=== PATIENT | female | born 1945 | race Caucasian/White ===

== ENCOUNTER → 2017-09-10 09:10 | Outpatient (CLI) | payer MEDICARE, OTHER, SELFPAY ==
[2017-09-10 09:29] LABS: Add Manual Diff / Slide Review NO; Basophils Percent Auto 0.9 % (0-2); Eosinophils Percent Auto 4.1 % (2-4); Hematocrit 37.4 % (36-46); Hemoglobin 12.7 g/dL (12.0-16.0); Lymphocytes Percent Auto 36.3 % (25-40); Mean Corpuscular Hemoglobin 28.9 PG (26-34); Mean Corpuscular Volume 85.2 fL (80-100); Monocytes Percent Auto 7.4 % (3-14); Neutrophils Absolute Auto 2600 /uL (3000-5900); Neutrophils Percent Auto 51.3 % (50-75); Platelet Count 237 X10^3/uL (150-400); Red Blood Cell Count 4.39 X10^6/uL (4.0-5.2); Red Cell Distribution Width 13.6 % (11.6-14.8); White Blood Cell Count 5.1 X10^3/uL (4.5-11.0)
[2017-09-10 09:46] LABS: Cholesterol 220 mg/dL (140-199); HDL Cholesterol 60 mg/dL (40-60); LDL Cholesterol Calculated 135 mg/dL (<100); Triglycerides 127 mg/dL (35-150)
[2017-09-10 10:12] LABS: Vitamin D 25 Hydroxy (D3) 45.2 ng/mL (30.0-100.0)
[2017-09-10 10:22] LABS: Ferritin 18.7 ng/mL (11.1-264)
[2017-09-10 10:25] LABS: TSH w/ Reflex to FT4 < 0.02 uIU/mL (0.47-4.68)
[2017-09-10 10:36] LABS: Vitamin B12 > 1000 pg/mL (239-931)
== END ==
PROVIDERS: Family Provider Family Medicine; PCP Family Medicine; Visit Provider Family Medicine
DX: E78.2 Mixed hyperlipidemia (principal); E55.9 Vitamin D deficiency, unspecified; D51.9 Vitamin B12 deficiency anemia, unspecified; E03.9 Hypothyroidism, unspecified
CPT/HCPCS: 36415; 80061; 82306; 82607; 82728; 84439; 84443; 85025

== ENCOUNTER → 2017-10-19 15:14 | Outpatient (CLI) | payer MEDICARE, OTHER, SELFPAY ==
[2017-10-19 17:48] LABS: Blood Urea Nitrogen 6 mg/dL (7-17); Carbon Dioxide 30 mmol/L (22-32); Chloride 100 mmol/L (98-107); Estimated Glomerular Filt Rate > 60.0 mL/min (>60); Glucose 87 mg/dL (80-110); HEMOLYSIS < 15 (0-50); Potassium 3.9 mmol/L (3.4-5.1); Sodium 140 mmol/L (137-145)
== END ==
PROVIDERS: Family Provider Family Medicine; PCP Family Medicine; Visit Provider Family Medicine
DX: E03.9 Hypothyroidism, unspecified (principal)
CPT/HCPCS: 36415; 80048

== ENCOUNTER 2018-11-15 15:15 | Outpatient (RCR) | payer MEDICARE, OTHER, SELFPAY ==
--- NOTE | 2017-08-18 21:06 | PT.OIE ---
Current Diagnoses Dorsalgia, unspecified (08/17/17) Past Medical History (Last Reviewed 07/11/17 @ 13:48 by Sonal Sanchez LPN) Hyperlipidemia (Chronic) Gastroesophageal reflux disease (Chronic 11/26/10) Acquired hypothyroidism (Chronic 07/30/12) Osteopenia (Chronic 07/22/13) Past Surgical History (Last Reviewed 07/11/17 @ 13:48 by Sonal Sanchez LPN) History of bilateral salpingo-oophorectomy (BSO) Status post bunionectomy Status post bunionectomy Status post tonsillectomy and adenoidectomy Provider Visit Care Team Role Provider Type Lan Gomes MD Attending Provider Physician Family Provider Primary Care Provider Specialty: Family Practice Address: [address] [place] [address] Email: [email or web address] Physical Therapy Initial Evaluation PT-OP-A Visit Information Start: 08/18/17 20:48 Freq: Status: Active Protocol: Document 08/17/17 13:00 [facility] (Rec: 08/18/17 21:05 [facility] [email or web address]) Out-Patient Physical Therapy Visit Information Visit Information Visit Type Initial Evaluation Visit Start Time 13:00 Visit Stop Time 13:45 Total Visit Minutes 45 Visit Number 1 Number of WORK ORDER CLERK Visits 0 Evaluation Information Evaluation Date 08/17/17 PT-OP-B Current Condition Start: 08/18/17 20:48 Freq: Status: Active Protocol: Document 08/17/17 13:00 [facility] (Rec: 08/18/17 21:05 [facility] [email or web address]) Current Condition History of Current Condition Onset Date recent onset of sacral/LBP 3 weeks ago Current Complaints alternating left and right sided sacral pain History of Current Condition nasra 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 She was doing well with her home stabilization program and aquatic exercise but recently flared her sacrum and SI joint after doing a abdominal exercise. She has been complaining of SI joint pain since Prior Functional Status Baseline Function- ADL's Independent Baseline Function- Mobility Independent Current Functional Impairments (Reported) Functional Limitations- ADL's limited with activities that require bending and lifting Functional Limitations- Mobility/Gait pain with walking greater than 1 mile PT-OP-C Subjective Start: 08/18/17 20:48 Freq: Status: Active Protocol: Document 08/17/17 13:00 [facility] (Rec: 08/18/17 21:05 [facility] [email or web address]) OP-PT Pain Assessment Pain Assessment Grid Paper Pain Assessment Grid Completed Yes Location Right Pain Location Details right SI joint and at times left SI joint Intensity 5 Scale Used Numeric (1 - 10) Description Aching Chronic Radiating Tender Throbbing Pain Aggravating Factors Walking Stair Climbing Bending Lifting PT-OP-F Manual Assessment Start: 08/18/17 20:48 Freq: Status: Active Protocol: Document 08/17/17 13:00 [facility] (Rec: 08/18/17 21:05 [facility] [email or web address]) Manual Assessments Soft Tissue Assessment Soft Tissue Mobility Assessment tightness in the piriformis muscle left greater than right Joint Mobility Assessment Joint Mobility Assessment + ASLR test for right SI instability and sacrum is rotated to the right PT-OP-J Posture/Palpation/Skin Start: 08/18/17 20:48 Freq: Status: Active Protocol: Document 08/17/17 13:00 [facility] (Rec: 08/18/17 21:05 [facility] [email or web address]) Palpation Assessment Location One Palpation Location PSIS and sacral NELY. saral base Palpation Findings Soft Tissue Tightness Muscle Guarding Tenderness Palpation Details tenderness on either side of the sacrum with muscle guarding, tenderness to palpation at the sacral base and PSIS bilaterally PT-OP-K Range of Motion Start: 08/18/17 20:48 Freq: Status: Active Protocol: Document 08/17/17 13:00 [facility] (Rec: 08/18/17 21:05 [facility] [email or web address]) Lumbar Spine Range of Motion Lumbar Spine Active Testing Position standing Flexion 80 Lateral Flexion Left 60 Lateral Flexion Right 50 ROM Limitations Soft Tissue Tightness PT-OP-Q Treatments Start: 08/18/17 20:48 Freq: Status: Active Protocol: Document 08/17/17 13:00 [facility] (Rec: 08/18/17 21:05 [facility] [email or web address]) Therapeutic Exercises Supine Exercises 1 Supine Exercise Name piriformis stretch Manual Therapy Treatment Soft Tissue Mobilization 1 Body Location piriformis release on the left Mobilization Type Myofascial Release Joint Mobilizations 1 Joint sacral mobilizations into counter nutation Grade II Body Position Prone PT-OP-T Assessment and Plan Start: 08/18/17 20:48 Freq: Status: Active Protocol: Document 08/17/17 13:00 [facility] (Rec: 08/18/17 21:05 [facility] [email or web address]) Physical Therapy Assessment Rehab Potential Rehabilitation Potential Excellent Evaluation Complexity Number of Personal Factors/Comorbidities 0 Number of Body Systems Impaired 1-2 Clinical Presentation at Evaluation Stable Impairments Impairments Activity Tolerance Pain ROM Soft Tissue Mobility Tone Goals Four Impairment decreased core stabilization Bobbin Disker Goal (LTG) Nasra Neff's core program for home is reviewed and she is properly performing her core stabilization exercises LTG Duration 8 weeks Three Impairment decreased lumbar spine ROM limited bending and lifting activities Penitentiary Goal (LTG) Improve lumbar spine ROM to WFL for return to full function with ADL's include bending and lifting activities Two Impairment muscle imbalances of the piriformis creating a torque on the sacrum Penitentiary Goal (LTG) improve flexibility of the piriformis on the left to reduce unequal pull on the sacrum LTG Duration 8 weeks One Impairment pain to palpation at the sacral borders due to sacral torsion Short Term Goal (STG) correct the sacral torsion with manual therapy techniques reducing pain at the sacrum STG Duration 5 weeks Assessment Summary Assessment Nasra Neff returns to PT today with sacral and SI pain that was aggravated with a abdominal exercise she was performing at home. She had been faithfully working on her home program and her aquatic therapy program and was feeling good so she did some additional abdominal exercises and it was enough to irritate her SI joint. She is suseptible due to her scoliosis and muscle imbalances that create a torque in her pelvis. She responded well to treatment today and treatment will focus on SI stability and returning her to to prior level of function. Physical Therapy Plan Frequency and Duration Frequency of Treatment 2x/Week Duration of Treatment 8 weeks Plan of Care Start Date 08/17/17 Plan of Care End Date 10/11/17 Therapeutic Interventions Therapeutic Interventions Home Exercise Program Joint Mobilizations Manual Therapy Neuromuscular Re-education Patient/Caregiver Education Self-Care/Home Management Therapeutic Exercises Modalities Ultrasound
--- NOTE | 2017-08-22 16:45 | PT.OTN ---
Current Diagnoses Dorsalgia, unspecified (08/22/17) Physical Therapy Treatment Note PT-OP-A Visit Information Start: 08/18/17 20:48 Freq: Status: Active Protocol: Document 08/22/17 16:32 [facility] (Rec: 08/22/17 16:44 [facility] [email or web address]) Out-Patient Physical Therapy Visit Information Visit Information Visit Type Treatment Note Visit Start Time 14:30 Visit Stop Time 15:15 Total Visit Minutes 45 Visit Number 2 Number of DIRECTOR [employer] Visits 0 PT-OP-B Current Condition Start: 08/18/17 20:48 Freq: Status: Active Protocol: Document 08/17/17 13:00 [facility] (Rec: 08/18/17 21:05 [facility] [email or web address]) Current Condition History of Current Condition Onset Date recent onset of sacral/LBP 3 weeks ago Current Complaints alternating left and right sided sacral pain History of Current Condition Yaritza 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 She was doing well with her home stabilization program and aquatic exercise but recently flared her sacrum and SI joint after doing a abdominal exercise. She has been complaining of SI joint pain since Prior Functional Status Baseline Function- ADL's Independent Baseline Function- Mobility Independent Current Functional Impairments (Reported) Functional Limitations- ADL's limited with activities that require bending and lifting Functional Limitations- Mobility/Gait pain with walking greater than 1 mile PT-OP-C Subjective Start: 08/18/17 20:48 Freq: Status: Active Protocol: Document 08/22/17 16:32 [facility] (Rec: 08/22/17 16:44 [facility] [email or web address]) OP-PT Subjective Patient Comments Patient Comments Yaritza neff reports she has been working on her exercises and going to the pool. She is feeling tightness on either side of the sacrum today. PT-OP-F Manual Assessment Start: 08/18/17 20:48 Freq: Status: Active Protocol: Document 08/17/17 13:00 [facility] (Rec: 08/18/17 21:05 [facility] [email or web address]) Manual Assessments Soft Tissue Assessment Soft Tissue Mobility Assessment tightness in the piriformis muscle left greater than right Joint Mobility Assessment Joint Mobility Assessment + ASLR test for right SI instability and sacrum is rotated to the right PT-OP-J Posture/Palpation/Skin Start: 08/18/17 20:48 Freq: Status: Active Protocol: Document 08/17/17 13:00 [facility] (Rec: 08/18/17 21:05 [facility] [email or web address]) Palpation Assessment Location One Palpation Location PSIS and sacral NELY. saral base Palpation Findings Soft Tissue Tightness Muscle Guarding Tenderness Palpation Details tenderness on either side of the sacrum with muscle guarding, tenderness to palpation at the sacral base and PSIS bilaterally PT-OP-K Range of Motion Start: 08/18/17 20:48 Freq: Status: Active Protocol: Document 08/17/17 13:00 [facility] (Rec: 08/18/17 21:05 [facility] [email or web address]) Lumbar Spine Range of Motion Lumbar Spine Active Testing Position standing Flexion 80 Lateral Flexion Left 60 Lateral Flexion Right 50 ROM Limitations Soft Tissue Tightness PT-OP-Q Treatments Start: 08/18/17 20:48 Freq: Status: Active Protocol: Document 08/22/17 16:32 [facility] (Rec: 08/22/17 16:44 [facility] [email or web address]) Therapeutic Exercises Supine Exercises 1 Supine Exercise Name piriformis stretch Other Exercises 2 Other Exercise Name prayer stretch with walking hands to the left 1 Other Exercise Name quadraped pelvic tilts and thoracic rotation Manual Therapy Treatment Soft Tissue Mobilization 2 Body Location lumbar paraspinal MFR Body Position Prone 1 Body Location piriformis release on the left Mobilization Type Myofascial Release Joint Mobilizations 1 Joint sacral mobilizations into counter nutation Grade II Body Position Prone PT-OP-T Assessment and Plan Start: 08/18/17 20:48 Freq: Status: Active Protocol: Document 08/22/17 16:32 [facility] (Rec: 08/22/17 16:44 [facility] [email or web address]) Physical Therapy Assessment Assessment Summary Assessment manual release of the sacrum today with MFR techniques, Yaritza Rai scoliosis tends to keep her rotated to the left with her sacrum. Treatment emphasized right rotation with her exercises to help compensate for this Physical Therapy Plan Frequency and Duration Frequency of Treatment 2x/Week Duration of Treatment 8 weeks Plan of Care Start Date 08/17/17 Plan of Care End Date 10/11/17 Therapeutic Interventions Therapeutic Interventions Home Exercise Program Joint Mobilizations Manual Therapy Neuromuscular Re-education Patient/Caregiver Education Self-Care/Home Management Therapeutic Exercises Modalities Ultrasound Next Visit Focus/Plan Next Note Type Treatment Note Next Visit Plan check sacral alignment and continue to work on loosening lumbar and pelvic tightness
--- NOTE | 2017-08-24 16:45 | PT.OTN ---
Current Diagnoses Dorsalgia, unspecified (08/24/17) Physical Therapy Treatment Note PT-OP-A Visit Information Start: 08/18/17 20:48 Freq: Status: Active Protocol: Document 08/24/17 11:15 [facility] (Rec: 08/24/17 16:45 [facility] [email or web address]) Out-Patient Physical Therapy Visit Information Visit Information Visit Type Treatment Note Visit Start Time 11:15 Visit Stop Time 12:30 Total Visit Minutes 45 Visit Number 3 Number of [employer] Visits 0 PT-OP-B Current Condition Start: 08/18/17 20:48 Freq: Status: Active Protocol: Document 08/17/17 13:00 [facility] (Rec: 08/18/17 21:05 [facility] [email or web address]) Current Condition History of Current Condition Onset Date recent onset of sacral/LBP 3 weeks ago Current Complaints alternating left and right sided sacral pain History of Current Condition nasra 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 She was doing well with her home stabilization program and aquatic exercise but recently flared her sacrum and SI joint after doing a abdominal exercise. She has been complaining of SI joint pain since Prior Functional Status Baseline Function- ADL's Independent Baseline Function- Mobility Independent Current Functional Impairments (Reported) Functional Limitations- ADL's limited with activities that require bending and lifting Functional Limitations- Mobility/Gait pain with walking greater than 1 mile PT-OP-C Subjective Start: 08/18/17 20:48 Freq: Status: Active Protocol: Document 08/24/17 11:15 [facility] (Rec: 08/24/17 16:45 [facility] [email or web address]) OP-PT Subjective Patient Comments Patient Comments Nasra Neff reports right sided lateral knee discomfort, left hamstring discomfort and Sacral discomfort PT-OP-F Manual Assessment Start: 08/18/17 20:48 Freq: Status: Active Protocol: Document 08/17/17 13:00 [facility] (Rec: 08/18/17 21:05 [facility] [email or web address]) Manual Assessments Soft Tissue Assessment Soft Tissue Mobility Assessment tightness in the piriformis muscle left greater than right Joint Mobility Assessment Joint Mobility Assessment + ASLR test for right SI instability and sacrum is rotated to the right PT-OP-J Posture/Palpation/Skin Start: 08/18/17 20:48 Freq: Status: Active Protocol: Document 08/17/17 13:00 [facility] (Rec: 06/29/18 21:05 [facility] [email or web address]) Palpation Assessment Location One Palpation Location PSIS and sacral NELY. saral base Palpation Findings Soft Tissue Tightness Muscle Guarding Tenderness Palpation Details tenderness on either side of the sacrum with muscle guarding, tenderness to palpation at the sacral base and PSIS bilaterally PT-OP-K Range of Motion Start: 08/18/17 20:48 Freq: Status: Active Protocol: Document 08/17/17 13:00 [facility] (Rec: 08/18/17 21:05 [facility] [email or web address]) Lumbar Spine Range of Motion Lumbar Spine Active Testing Position standing Flexion 80 Lateral Flexion Left 60 Lateral Flexion Right 50 ROM Limitations Soft Tissue Tightness PT-OP-Q Treatments Start: 08/18/17 20:48 Freq: Status: Active Protocol: Document 08/24/17 11:15 [facility] (Rec: 08/24/17 16:45 [facility] [email or web address]) Therapeutic Exercises Supine Exercises 2 Supine Exercise Name diaphragmatic breathing 1 Supine Exercise Name piriformis stretch Prone Exercises 1 Prone Exercise Name TA with opposite arm lift Other Exercises 1 Other Exercise Name quadraped pelvic tilts and thoracic rotation Manual Therapy Treatment Soft Tissue Mobilization 4 Body Location right sided oblique release 3 Body Location ITB release on the right distal attachement Joint Mobilizations 2 Joint MET left anterior innominant rotation 1 Joint sacral mobilizations into counter nutation Grade II Body Position Prone PT-OP-T Assessment and Plan Start: 08/18/17 20:48 Freq: Status: Active Protocol: Document 08/24/17 11:15 [facility] (Rec: 08/24/17 16:45 [facility] [email or web address]) Physical Therapy Assessment Assessment Summary Assessment leg length discrepency today corrected with MET, worked on the right ITB attachment at the knee and right rotation of the rib cage. Continue to emphasize right rotation Physical Therapy Plan Frequency and Duration Frequency of Treatment 2x/Week Duration of Treatment 8 weeks Plan of Care Start Date 08/17/17 Plan of Care End Date 10/11/17 Therapeutic Interventions Therapeutic Interventions Home Exercise Program Joint Mobilizations Manual Therapy Neuromuscular Re-education Patient/Caregiver Education Self-Care/Home Management Therapeutic Exercises Modalities Ultrasound Next Visit Focus/Plan Next Note Type Treatment Note Next Visit Plan check sacral alignment and continue to work on loosening lumbar and pelvic tightness
--- NOTE | 2017-08-29 17:58 | PT.OTN ---
Current Diagnoses Dorsalgia, unspecified (08/29/17) Physical Therapy Treatment Note PT-OP-A Visit Information Start: 08/18/17 20:48 Freq: Status: Active Protocol: Document 08/29/17 17:51 [facility] (Rec: 08/29/17 17:57 [facility] [email or web address]) Out-Patient Physical Therapy Visit Information Visit Information Visit Type Treatment Note Visit Start Time 11:15 Visit Stop Time 12:30 Total Visit Minutes 45 Visit Number 4 Number of FLOORING HELPER Visits 0 PT-OP-B Current Condition Start: 08/18/17 20:48 Freq: Status: Active Protocol: Document 08/17/17 13:00 [facility] (Rec: 08/18/17 21:05 [facility] [email or web address]) Current Condition History of Current Condition Onset Date recent onset of sacral/LBP 3 weeks ago Current Complaints alternating left and right sided sacral pain History of Current Condition nasra 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 She was doing well with her home stabilization program and aquatic exercise but recently flared her sacrum and SI joint after doing a abdominal exercise. She has been complaining of SI joint pain since Prior Functional Status Baseline Function- ADL's Independent Baseline Function- Mobility Independent Current Functional Impairments (Reported) Functional Limitations- ADL's limited with activities that require bending and lifting Functional Limitations- Mobility/Gait pain with walking greater than 1 mile PT-OP-C Subjective Start: 08/18/17 20:48 Freq: Status: Active Protocol: Document 08/29/17 17:51 [facility] (Rec: 08/29/17 17:57 [facility] [email or web address]) OP-PT Subjective Patient Comments Patient Comments feels some ankle discomfort on the right side, also feeling like the aiden pose and reaching to the side irritated her sacrum PT-OP-F Manual Assessment Start: 08/18/17 20:48 Freq: Status: Active Protocol: Document 08/17/17 13:00 [facility] (Rec: 08/18/17 21:05 [facility] [email or web address]) Manual Assessments Soft Tissue Assessment Soft Tissue Mobility Assessment tightness in the piriformis muscle left greater than right Joint Mobility Assessment Joint Mobility Assessment + ASLR test for right SI instability and sacrum is rotated to the right PT-OP-J Posture/Palpation/Skin Start: 08/18/17 20:48 Freq: Status: Active Protocol: Document 08/17/17 13:00 [facility] (Rec: 08/18/17 21:05 [facility] [email or web address]) Palpation Assessment Location One Palpation Location PSIS and sacral NELY. saral base Palpation Findings Soft Tissue Tightness Muscle Guarding Tenderness Palpation Details tenderness on either side of the sacrum with muscle guarding, tenderness to palpation at the sacral base and PSIS bilaterally PT-OP-K Range of Motion Start: 08/18/17 20:48 Freq: Status: Active Protocol: Document 08/17/17 13:00 [facility] (Rec: 08/18/17 21:05 [facility] [email or web address]) Lumbar Spine Range of Motion Lumbar Spine Active Testing Position standing Flexion 80 Lateral Flexion Left 60 Lateral Flexion Right 50 ROM Limitations Soft Tissue Tightness PT-OP-Q Treatments Start: 08/18/17 20:48 Freq: Status: Active Protocol: Document 08/29/17 17:51 [facility] (Rec: 08/29/17 17:57 [facility] [email or web address]) Therapeutic Exercises Supine Exercises 3 Supine Exercise Name ankle eversion with level 1 theraband Reps/Minutes 3 x 10 reps 1 Supine Exercise Name piriformis stretch Other Exercises 2 Other Exercise Name prayer stretch with walking hands to the left 1 Other Exercise Name quadraped pelvic tilts and thoracic rotation Manual Therapy Treatment Soft Tissue Mobilization 2 Body Location lumbar paraspinal MFR Body Position Prone 1 Body Location piriformis release on the left Mobilization Type Myofascial Release PT-OP-T Assessment and Plan Start: 08/18/17 20:48 Freq: Status: Active Protocol: Document 08/29/17 17:51 [facility] (Rec: 08/29/17 17:57 [facility] [email or web address]) Physical Therapy Assessment Assessment Summary Assessment review of all exercises today and education to avoid stretching in a position that irritates the sacrum. Continue to emphasize right rotation Physical Therapy Plan Frequency and Duration Frequency of Treatment 2x/Week Duration of Treatment 8 weeks Plan of Care Start Date 08/17/17 Plan of Care End Date 10/11/17 Therapeutic Interventions Therapeutic Interventions Home Exercise Program Joint Mobilizations Manual Therapy Neuromuscular Re-education Patient/Caregiver Education Self-Care/Home Management Therapeutic Exercises Modalities Ultrasound Next Visit Focus/Plan Next Note Type Treatment Note Next Visit Plan check sacral alignment and continue to work on loosening lumbar and pelvic tightness
--- NOTE | 2017-08-31 19:14 | PT.OTN ---
Current Diagnoses Dorsalgia, unspecified (08/31/17) Physical Therapy Treatment Note PT-OP-A Visit Information Start: 08/18/17 20:48 Freq: Status: Active Protocol: Document 08/31/17 19:10 [facility] (Rec: 08/31/17 19:14 [facility] [email or web address]) Out-Patient Physical Therapy Visit Information Visit Information Visit Type Treatment Note Visit Start Time 14:15 Visit Stop Time 15:00 Total Visit Minutes 45 Visit Number 5 Number of SCHOOL LIBR[employer] MEDIA SPECIALIST Visits 0 PT-OP-B Current Condition Start: 08/18/17 20:48 Freq: Status: Active Protocol: Document 08/17/17 13:00 [facility] (Rec: 08/18/17 21:05 [facility] [email or web address]) Current Condition History of Current Condition Onset Date recent onset of sacral/LBP 3 weeks ago Current Complaints alternating left and right sided sacral pain History of Current Condition nasra 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 She was doing well with her home stabilization program and aquatic exercise but recently flared her sacrum and SI joint after doing a abdominal exercise. She has been complaining of SI joint pain since Prior Functional Status Baseline Function- ADL's Independent Baseline Function- Mobility Independent Current Functional Impairments (Reported) Functional Limitations- ADL's limited with activities that require bending and lifting Functional Limitations- Mobility/Gait pain with walking greater than 1 mile PT-OP-C Subjective Start: 08/18/17 20:48 Freq: Status: Active Protocol: Document 08/31/17 19:10 [facility] (Rec: 08/31/17 19:14 [facility] [email or web address]) OP-PT Subjective Patient Comments Patient Comments complains of right sided upper back pain and neck discomfort PT-OP-F Manual Assessment Start: 08/18/17 20:48 Freq: Status: Active Protocol: Document 08/17/17 13:00 [facility] (Rec: 08/18/17 21:05 [facility] [email or web address]) Manual Assessments Soft Tissue Assessment Soft Tissue Mobility Assessment tightness in the piriformis muscle left greater than right Joint Mobility Assessment Joint Mobility Assessment + ASLR test for right SI instability and sacrum is rotated to the right PT-OP-J Posture/Palpation/Skin Start: 08/18/17 20:48 Freq: Status: Active Protocol: Document 08/17/17 13:00 [facility] (Rec: 08/18/17 21:05 [facility] [email or web address]) Palpation Assessment Location One Palpation Location PSIS and sacral NELY. saral base Palpation Findings Soft Tissue Tightness Muscle Guarding Tenderness Palpation Details tenderness on either side of the sacrum with muscle guarding, tenderness to palpation at the sacral base and PSIS bilaterally PT-OP-K Range of Motion Start: 08/18/17 20:48 Freq: Status: Active Protocol: Document 08/17/17 13:00 [facility] (Rec: 08/18/17 21:05 [facility] [email or web address]) Lumbar Spine Range of Motion Lumbar Spine Active Testing Position standing Flexion 80 Lateral Flexion Left 60 Lateral Flexion Right 50 ROM Limitations Soft Tissue Tightness PT-OP-Q Treatments Start: 08/18/17 20:48 Freq: Status: Active Protocol: Document 08/31/17 19:10 [facility] (Rec: 08/31/17 19:14 [facility] [email or web address]) Therapeutic Exercises Standing Exercises 2 Standing Exercise Name standinghorizontal abduction Equipment Used level 1 theraband Reps/Minutes 2 x 10 reps 1 Standing Exercise Name theraband rows, lat pull down and ER Equipment Used lev 1 theraband Reps/Minutes 3 sets of 10 each Manual Therapy Treatment Soft Tissue Mobilization 5 Body Location right upper trapezius and thoracic parapsinal release Mobilization Type Myofascial Release Body Position Sitting PT-OP-T Assessment and Plan Start: 08/18/17 20:48 Freq: Status: Active Protocol: Document 08/31/17 19:10 [facility] (Rec: 08/31/17 19:14 [facility] [email or web address]) Physical Therapy Assessment Assessment Summary Assessment added in postural exercises today for decreased strain on the neck and thoracic spine Physical Therapy Plan Frequency and Duration Frequency of Treatment 2x/Week Duration of Treatment 8 weeks Plan of Care Start Date 08/17/17 Plan of Care End Date 10/11/17 Therapeutic Interventions Therapeutic Interventions Home Exercise Program Joint Mobilizations Manual Therapy Neuromuscular Re-education Patient/Caregiver Education Self-Care/Home Management Therapeutic Exercises Modalities Ultrasound Next Visit Focus/Plan Next Note Type Treatment Note Next Visit Plan check sacral alignment and continue to work on loosening lumbar and pelvic tightness
--- NOTE | 2017-09-05 15:54 | PT.OTN ---
Current Diagnoses Dorsalgia, unspecified (09/05/17) Physical Therapy Treatment Note PT-OP-A Visit Information Start: 08/18/17 20:48 Freq: Status: Active Protocol: Document 09/05/17 15:48 [facility] (Rec: 09/05/17 15:53 [facility] [email or web address]) Out-Patient Physical Therapy Visit Information Visit Information Visit Type Treatment Note Visit Start Time 14:00 Visit Stop Time 14:45 Total Visit Minutes 40 Visit Number 6 Number of AIRPLANE FIRST OFFICER Visits 0 PT-OP-B Current Condition Start: 08/18/17 20:48 Freq: Status: Active Protocol: Document 08/17/17 13:00 [facility] (Rec: 08/18/17 21:05 [facility] [email or web address]) Current Condition History of Current Condition Onset Date recent onset of sacral/LBP 3 weeks ago Current Complaints alternating left and right sided sacral pain History of Current Condition nasra 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 She was doing well with her home stabilization program and aquatic exercise but recently flared her sacrum and SI joint after doing a abdominal exercise. She has been complaining of SI joint pain since Prior Functional Status Baseline Function- ADL's Independent Baseline Function- Mobility Independent Current Functional Impairments (Reported) Functional Limitations- ADL's limited with activities that require bending and lifting Functional Limitations- Mobility/Gait pain with walking greater than 1 mile PT-OP-C Subjective Start: 08/18/17 20:48 Freq: Status: Active Protocol: Document 09/05/17 15:48 [facility] (Rec: 09/05/17 15:53 [facility] [email or web address]) OP-PT Subjective Patient Comments Patient Comments overall symptoms are improved. Nasra Neff brings in a few questions regarding her home exercise program PT-OP-F Manual Assessment Start: 08/18/17 20:48 Freq: Status: Active Protocol: Document 08/17/17 13:00 [facility] (Rec: 08/18/17 21:05 [facility] [email or web address]) Manual Assessments Soft Tissue Assessment Soft Tissue Mobility Assessment tightness in the piriformis muscle left greater than right Joint Mobility Assessment Joint Mobility Assessment + ASLR test for right SI instability and sacrum is rotated to the right PT-OP-J Posture/Palpation/Skin Start: 08/18/17 20:48 Freq: Status: Active Protocol: Document 08/17/17 13:00 [facility] (Rec: 08/18/17 21:05 [facility] [email or web address]) Palpation Assessment Location One Palpation Location PSIS and sacral NELY. saral base Palpation Findings Soft Tissue Tightness Muscle Guarding Tenderness Palpation Details tenderness on either side of the sacrum with muscle guarding, tenderness to palpation at the sacral base and PSIS bilaterally PT-OP-K Range of Motion Start: 08/18/17 20:48 Freq: Status: Active Protocol: Document 08/17/17 13:00 [facility] (Rec: 08/18/17 21:05 [facility] [email or web address]) Lumbar Spine Range of Motion Lumbar Spine Active Testing Position standing Flexion 80 Lateral Flexion Left 60 Lateral Flexion Right 50 ROM Limitations Soft Tissue Tightness PT-OP-Q Treatments Start: 08/18/17 20:48 Freq: Status: Active Protocol: Document 09/05/17 15:48 [facility] (Rec: 09/05/17 15:53 [facility] [email or web address]) Therapeutic Exercises Supine Exercises 3 Supine Exercise Name ankle eversion with level 1 theraband Reps/Minutes 3 x 10 reps Standing Exercises 2 Standing Exercise Name standinghorizontal abduction Equipment Used level 1 theraband Reps/Minutes 2 x 10 reps 1 Standing Exercise Name theraband rows, lat pull down and ER Equipment Used lev 1 theraband Reps/Minutes 3 sets of 10 each Other Exercises 1 Other Exercise Name quadraped pelvic tilts and thoracic rotation Manual Therapy Treatment Joint Mobilizations 3 Joint thoracic spine mobilzations in prone Comments grade II for improved thoracic extension PT-OP-T Assessment and Plan Start: 08/18/17 20:48 Freq: Status: Active Protocol: Document 09/05/17 15:48 [facility] (Rec: 09/05/17 15:53 [facility] [email or web address]) Physical Therapy Assessment Assessment Summary Assessment tolerating exercises well, needed verbal cueing for stabilization with opp arm lifts in quadraped Physical Therapy Plan Frequency and Duration Frequency of Treatment 2x/Week Duration of Treatment 8 weeks Plan of Care Start Date 08/17/17 Plan of Care End Date 10/11/17 Therapeutic Interventions Therapeutic Interventions Home Exercise Program Joint Mobilizations Manual Therapy Neuromuscular Re-education Patient/Caregiver Education Self-Care/Home Management Therapeutic Exercises Modalities Ultrasound Next Visit Focus/Plan Next Note Type Treatment Note Next Visit Plan progress stabilization asd Nasra Neff can tolerate
--- NOTE | 2017-09-07 15:32 | PT.OTN ---
Current Diagnoses Dorsalgia, unspecified (09/07/17) Physical Therapy Treatment Note PT-OP-A Visit Information Start: 08/18/17 20:48 Freq: Status: Active Protocol: Document 09/07/17 15:27 [facility] (Rec: 09/07/17 15:32 [facility] [email or web address]) Out-Patient Physical Therapy Visit Information Visit Information Visit Type Treatment Note Visit Start Time 02:30 Visit Stop Time 03:15 Total Visit Minutes 45 Visit Number 7 Number of BUSINESS SERVICES SPECIALIST SALES Visits 0 PT-OP-B Current Condition Start: 08/18/17 20:48 Freq: Status: Active Protocol: Document 08/17/17 13:00 [facility] (Rec: 08/18/17 21:05 [facility] [email or web address]) Current Condition History of Current Condition Onset Date recent onset of sacral/LBP 3 weeks ago Current Complaints alternating left and right sided sacral pain History of Current Condition nasra 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 She was doing well with her home stabilization program and aquatic exercise but recently flared her sacrum and SI joint after doing a abdominal exercise. She has been complaining of SI joint pain since Prior Functional Status Baseline Function- ADL's Independent Baseline Function- Mobility Independent Current Functional Impairments (Reported) Functional Limitations- ADL's limited with activities that require bending and lifting Functional Limitations- Mobility/Gait pain with walking greater than 1 mile PT-OP-C Subjective Start: 08/18/17 20:48 Freq: Status: Active Protocol: Document 09/07/17 15:27 [facility] (Rec: 09/07/17 15:32 [facility] [email or web address]) OP-PT Subjective Patient Comments Patient Comments overall symptoms are improved. Nasra Neff brings in a few questions regarding her home exercise program PT-OP-F Manual Assessment Start: 08/18/17 20:48 Freq: Status: Active Protocol: Document 08/17/17 13:00 [facility] (Rec: 08/18/17 21:05 [facility] [email or web address]) Manual Assessments Soft Tissue Assessment Soft Tissue Mobility Assessment tightness in the piriformis muscle left greater than right Joint Mobility Assessment Joint Mobility Assessment + ASLR test for right SI instability and sacrum is rotated to the right PT-OP-J Posture/Palpation/Skin Start: 08/18/17 20:48 Freq: Status: Active Protocol: Document 08/17/17 13:00 [facility] (Rec: 08/18/17 21:05 [facility] [email or web address]) Palpation Assessment Location One Palpation Location PSIS and sacral NELY. saral base Palpation Findings Soft Tissue Tightness Muscle Guarding Tenderness Palpation Details tenderness on either side of the sacrum with muscle guarding, tenderness to palpation at the sacral base and PSIS bilaterally PT-OP-K Range of Motion Start: 08/18/17 20:48 Freq: Status: Active Protocol: Document 08/17/17 13:00 [facility] (Rec: 08/18/17 21:05 [facility] [email or web address]) Lumbar Spine Range of Motion Lumbar Spine Active Testing Position standing Flexion 80 Lateral Flexion Left 60 Lateral Flexion Right 50 ROM Limitations Soft Tissue Tightness PT-OP-Q Treatments Start: 08/18/17 20:48 Freq: Status: Active Protocol: Document 09/07/17 15:27 [facility] (Rec: 09/07/17 15:32 [facility] [email or web address]) Therapeutic Exercises Prone Exercises 1 Prone Exercise Name TA with opposite arm lift Standing Exercises 2 Standing Exercise Name standinghorizontal abduction Equipment Used level 1 theraband Reps/Minutes 2 x 10 reps 1 Standing Exercise Name theraband rows, lat pull down and ER Equipment Used lev 1 theraband Reps/Minutes 3 sets of 10 each Other Exercises 2 Other Exercise Name prayer stretch with walking hands to the left 1 Other Exercise Name quadraped pelvic tilts and thoracic rotation Manual Therapy Treatment Soft Tissue Mobilization 5 Body Location right upper trapezius and thoracic parapsinal release Mobilization Type Myofascial Release Body Position Sitting PT-OP-T Assessment and Plan Start: 08/18/17 20:48 Freq: Status: Active Protocol: Document 09/07/17 15:27 [facility] (Rec: 09/07/17 15:32 [facility] [email or web address]) Physical Therapy Assessment Assessment Summary Assessment improved ROM with shoulder ER with theraband today, tight in the upper trapezius Physical Therapy Plan Frequency and Duration Frequency of Treatment 2x/Week Duration of Treatment 8 weeks Plan of Care Start Date 08/17/17 Plan of Care End Date 10/11/17 Therapeutic Interventions Therapeutic Interventions Home Exercise Program Joint Mobilizations Manual Therapy Neuromuscular Re-education Patient/Caregiver Education Self-Care/Home Management Therapeutic Exercises Modalities Ultrasound Next Visit Focus/Plan Next Note Type Treatment Note Next Visit Plan progress stabilization as Nasra Neff can tolerate
--- NOTE | 2017-10-15 14:22 | PT.OTN ---
Current Diagnoses Dorsalgia, unspecified (10/12/17) Physical Therapy Treatment Note PT-OP-A Visit Information Start: 08/18/17 20:48 Freq: Status: Active Protocol: Document 10/12/17 09:45 [facility] (Rec: 10/15/17 14:22 [facility] [email or web address]) Out-Patient Physical Therapy Visit Information Visit Information Visit Type Progress Note Visit Start Time 09:45 Visit Stop Time 10:30 Total Visit Minutes 45 Visit Number 8 Number of MEDICAL OFFICE PROFESSIONAL INSTRUCTOR Visits 0 PT-OP-B Current Condition Start: 08/18/17 20:48 Freq: Status: Active Protocol: Document 08/17/17 13:00 [facility] (Rec: 08/18/17 21:05 [facility] [email or web address]) Current Condition History of Current Condition Onset Date recent onset of sacral/LBP 3 weeks ago Current Complaints alternating left and right sided sacral pain History of Current Condition nasra 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 She was doing well with her home stabilization program and aquatic exercise but recently flared her sacrum and SI joint after doing a abdominal exercise. She has been complaining of SI joint pain since Prior Functional Status Baseline Function- ADL's Independent Baseline Function- Mobility Independent Current Functional Impairments (Reported) Functional Limitations- ADL's limited with activities that require bending and lifting Functional Limitations- Mobility/Gait pain with walking greater than 1 mile PT-OP-C Subjective Start: 08/18/17 20:48 Freq: Status: Active Protocol: Document 10/12/17 09:45 [facility] (Rec: 10/15/17 14:22 [facility] [email or web address]) OP-PT Subjective Patient Comments Patient Comments Nasra Neff reports she has been gone on vacation and she did pretty well with her back. Things have tightned up since she got home and she has questions regarding her HEP PT-OP-F Manual Assessment Start: 08/18/17 20:48 Freq: Status: Active Protocol: Document 08/17/17 13:00 [facility] (Rec: 08/18/17 21:05 [facility] [email or web address]) Manual Assessments Soft Tissue Assessment Soft Tissue Mobility Assessment tightness in the piriformis muscle left greater than right Joint Mobility Assessment Joint Mobility Assessment + ASLR test for right SI instability and sacrum is rotated to the right PT-OP-J Posture/Palpation/Skin Start: 08/18/17 20:48 Freq: Status: Active Protocol: Document 08/17/17 13:00 [facility] (Rec: 08/18/17 21:05 [facility] [email or web address]) Palpation Assessment Location One Palpation Location PSIS and sacral NELY. saral base Palpation Findings Soft Tissue Tightness Muscle Guarding Tenderness Palpation Details tenderness on either side of the sacrum with muscle guarding, tenderness to palpation at the sacral base and PSIS bilaterally PT-OP-K Range of Motion Start: 08/18/17 20:48 Freq: Status: Active Protocol: Document 10/12/17 09:45 [facility] (Rec: 10/15/17 14:22 [facility] [email or web address]) Lumbar Spine Range of Motion Lumbar Spine Active Testing Position standing Flexion 80 Lateral Flexion Left 65 Lateral Flexion Right 55 Comments decreased overall tightness PT-OP-Q Treatments Start: 08/18/17 20:48 Freq: Status: Active Protocol: Document 10/12/17 09:45 [facility] (Rec: 10/15/17 14:22 [facility] [email or web address]) Therapeutic Exercises Supine Exercises 2 Supine Exercise Name diaphragmatic breathing 1 Supine Exercise Name piriformis stretch Prone Exercises 1 Prone Exercise Name TA with opposite arm lift Other Exercises 2 Other Exercise Name prayer stretch with walking hands to the left 1 Other Exercise Name quadraped pelvic tilts and thoracic rotation Manual Therapy Treatment Manual Techniques 1 Type manual ITB release and hamstring stretching PT-OP-R Modalities Start: 09/07/17 15:56 Freq: Status: Active Protocol: Document 09/07/17 15:56 [facility] (Rec: 09/07/17 15:57 [facility] [email or web address]) Ultrasound Therapy Treatment right upper trapexius Treatment Duration (minutes) 8 Patient Position Sitting Coupling Medium Ultrasound Gel Applicator Size (cm2) 5 Frequency Setting (mHz) 1 Mode Setting Continuous Duty Cycle 100% Intensity Setting (w/cm2) 1.5 PT-OP-T Assessment and Plan Start: 08/18/17 20:48 Freq: Status: Active Protocol: Document 10/12/17 09:45 [facility] (Rec: 10/15/17 14:22 [facility] [email or web address]) Physical Therapy Assessment Progress Towards Goals Progress Towards Goals Progressing Toward Goals Assessment Summary Assessment Nasra Neff returns to PT after being out of town for a month. Nasra Neff is making good overall progress towards her goals, lumbar ROM has improved and she is doing better with her home program. She would benfit from progress her postural program Physical Therapy Plan Frequency and Duration Frequency of Treatment 2x/Week Duration of Treatment 8 weeks Plan of Care Start Date 10/12/17 Plan of Care End Date 12/07/17 Therapeutic Interventions Therapeutic Interventions Home Exercise Program Joint Mobilizations Manual Therapy Neuromuscular Re-education Patient/Caregiver Education Self-Care/Home Management Therapeutic Exercises Modalities Ultrasound Next Visit Focus/Plan Next Note Type Treatment Note Next Visit Plan progress stabilization as Rama can tolerate
--- NOTE | 2017-10-15 14:22 | PT.OPPOC ---
Current Diagnoses Dorsalgia, unspecified (10/12/17) Provider Visit Care Team Role Provider Type Lan Gomes MD Attending Provider Physician Family Provider Primary Care Provider Specialty: Family Practice Address: [address] [place] [address], [id number] Email: [email or web address] Plan Of Care PT-OP-T Assessment and Plan Start: 08/18/17 20:48 Freq: Status: Active Protocol: Document 10/12/17 09:45 [facility] (Rec: 10/15/17 14:22 [facility] [email or web address]) Physical Therapy Assessment Progress Towards Goals Progress Towards Goals Progressing Toward Goals Assessment Summary Assessment Yaritza Neff returns to PT after being out of town for a month. Yaritza Neff is making good overall progress towards her goals, lumbar ROM has improved and she is doing better with her home program. She would benfit from progress her postural program Physical Therapy Plan Frequency and Duration Frequency of Treatment 2x/Week Duration of Treatment 8 weeks Plan of Care Start Date 10/12/17 Plan of Care End Date 12/07/17 Therapeutic Interventions Therapeutic Interventions Home Exercise Program Joint Mobilizations Manual Therapy Neuromuscular Re-education Patient/Caregiver Education Self-Care/Home Management Therapeutic Exercises Modalities Ultrasound Next Visit Focus/Plan Next Note Type Treatment Note Next Visit Plan progress stabilization as Yaritza Neff can tolerate Plan of Care Dates Plan of Care Start Date 10/12/17 Plan of Care End Date 12/07/17 Please Sign and Return: I have reviewed this Plan of Care and certify that the skilled therapy services above are required to meet the patient?s needs. Physician Signature Date Printed Name and Credentials Clinical Instructor Signature Printed Name and Credentials
--- NOTE | 2017-11-01 09:58 | PT.OTN ---
Current Diagnoses Dorsalgia, unspecified (10/31/17) Physical Therapy Treatment Note PT-OP-A Visit Information Start: 08/18/17 20:48 Freq: Status: Active Protocol: Document 11/01/17 09:54 [facility] (Rec: 11/01/17 09:58 [facility] [email or web address]) Out-Patient Physical Therapy Visit Information Visit Information Visit Type Treatment Note Visit Start Time 13:12 Visit Stop Time 13:45 Total Visit Minutes 33 Visit Number 9 Number of HOUSEHOLD PERSONAL ASSISTANT Visits 0 PT-OP-B Current Condition Start: 08/18/17 20:48 Freq: Status: Active Protocol: Document 08/17/17 13:00 [facility] (Rec: 08/18/17 21:05 [facility] [email or web address]) Current Condition History of Current Condition Onset Date recent onset of sacral/LBP 3 weeks ago Current Complaints alternating left and right sided sacral pain History of Current Condition nasra 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 She was doing well with her home stabilization program and aquatic exercise but recently flared her sacrum and SI joint after doing a abdominal exercise. She has been complaining of SI joint pain since Prior Functional Status Baseline Function- ADL's Independent Baseline Function- Mobility Independent Current Functional Impairments (Reported) Functional Limitations- ADL's limited with activities that require bending and lifting Functional Limitations- Mobility/Gait pain with walking greater than 1 mile PT-OP-C Subjective Start: 08/18/17 20:48 Freq: Status: Active Protocol: Document 11/01/17 09:54 [facility] (Rec: 11/01/17 09:58 [facility] [email or web address]) OP-PT Subjective Patient Comments Patient Comments OVerall better but feeling symptoms left sided of low back ttoday PT-OP-F Manual Assessment Start: 08/18/17 20:48 Freq: Status: Active Protocol: Document 08/17/17 13:00 [facility] (Rec: 08/18/17 21:05 [facility] [email or web address]) Manual Assessments Soft Tissue Assessment Soft Tissue Mobility Assessment tightness in the piriformis muscle left greater than right Joint Mobility Assessment Joint Mobility Assessment + ASLR test for right SI instability and sacrum is rotated to the right PT-OP-J Posture/Palpation/Skin Start: 08/18/17 20:48 Freq: Status: Active Protocol: Document 08/17/17 13:00 [facility] (Rec: 08/18/17 21:05 [facility] [email or web address]) Palpation Assessment Location One Palpation Location PSIS and sacral NELY. saral base Palpation Findings Soft Tissue Tightness Muscle Guarding Tenderness Palpation Details tenderness on either side of the sacrum with muscle guarding, tenderness to palpation at the sacral base and PSIS bilaterally PT-OP-K Range of Motion Start: 08/18/17 20:48 Freq: Status: Active Protocol: Document 10/12/17 09:45 [facility] (Rec: 10/15/17 14:22 [facility] [email or web address]) Lumbar Spine Range of Motion Lumbar Spine Active Testing Position standing Flexion 80 Lateral Flexion Left 65 Lateral Flexion Right 55 Comments decreased overall tightness PT-OP-Q Treatments Start: 08/18/17 20:48 Freq: Status: Active Protocol: Document 11/01/17 09:54 [facility] (Rec: 11/01/17 09:58 [facility] [email or web address]) Manual Therapy Treatment Soft Tissue Mobilization 2 Body Location lumbar paraspinal MFR Body Position Prone Comments worked on releasing the left side of the lumbar paraspinals and Quadratus lumborum Self-Care/Home Management Treatment Education Patient Education Home Exercise Program PT-OP-R Modalities Start: 09/07/17 15:56 Freq: Status: Active Protocol: Document 09/07/17 15:56 [facility] (Rec: 09/07/17 15:57 [facility] [email or web address]) Ultrasound Therapy Treatment right upper trapexius Treatment Duration (minutes) 8 Patient Position Sitting Coupling Medium Ultrasound Gel Applicator Size (cm2) 5 Frequency Setting (mHz) 1 Mode Setting Continuous Duty Cycle 100% Intensity Setting (w/cm2) 1.5 PT-OP-T Assessment and Plan Start: 08/18/17 20:48 Freq: Status: Active Protocol: Document 11/01/17 09:54 [facility] (Rec: 11/01/17 09:58 [facility] [email or web address]) Physical Therapy Assessment Assessment Summary Assessment discussed continuing with right rotation activities as the left lumbar paraspinals are very tight and she ends up in left thoracic and lumbar rotation due to sciolosis Physical Therapy Plan Frequency and Duration Frequency of Treatment 2x/Week Duration of Treatment 8 weeks Plan of Care Start Date 10/12/17 Plan of Care End Date 12/07/17 Therapeutic Interventions Therapeutic Interventions Home Exercise Program Joint Mobilizations Manual Therapy Neuromuscular Re-education Patient/Caregiver Education Self-Care/Home Management Therapeutic Exercises Modalities Ultrasound Next Visit Focus/Plan Next Note Type Treatment Note Next Visit Plan progress stabilization as Rama can tolerate
--- NOTE | 2017-11-02 17:30 | PT.OTN ---
Current Diagnoses Dorsalgia, unspecified (11/02/17) Physical Therapy Treatment Note PT-OP-A Visit Information Start: 08/18/17 20:48 Freq: Status: Active Protocol: Document 11/02/17 17:24 [facility] (Rec: 11/02/17 17:30 [facility] [email or web address]) Out-Patient Physical Therapy Visit Information Visit Information Visit Type Treatment Note Visit Start Time 13:00 Visit Stop Time 13:45 Total Visit Minutes 45 Visit Number 10 PT-OP-B Current Condition Start: 08/18/17 20:48 Freq: Status: Active Protocol: Document 08/17/17 13:00 [facility] (Rec: 08/18/17 21:05 [facility] [email or web address]) Current Condition History of Current Condition Onset Date recent onset of sacral/LBP 3 weeks ago Current Complaints alternating left and right sided sacral pain History of Current Condition nasra 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 She was doing well with her home stabilization program and aquatic exercise but recently flared her sacrum and SI joint after doing a abdominal exercise. She has been complaining of SI joint pain since Prior Functional Status Baseline Function- ADL's Independent Baseline Function- Mobility Independent Current Functional Impairments (Reported) Functional Limitations- ADL's limited with activities that require bending and lifting Functional Limitations- Mobility/Gait pain with walking greater than 1 mile PT-OP-C Subjective Start: 08/18/17 20:48 Freq: Status: Active Protocol: Document 11/02/17 17:24 [facility] (Rec: 11/02/17 17:30 [facility] [email or web address]) OP-PT Subjective Patient Comments Patient Comments upper trapezius tightness and neck discomfort today PT-OP-F Manual Assessment Start: 08/18/17 20:48 Freq: Status: Active Protocol: Document 08/17/17 13:00 [facility] (Rec: 08/18/17 21:05 [facility] [email or web address]) Manual Assessments Soft Tissue Assessment Soft Tissue Mobility Assessment tightness in the piriformis muscle left greater than right Joint Mobility Assessment Joint Mobility Assessment + ASLR test for right SI instability and sacrum is rotated to the right PT-OP-J Posture/Palpation/Skin Start: 08/18/17 20:48 Freq: Status: Active Protocol: Document 08/17/17 13:00 [facility] (Rec: 08/18/17 21:05 [facility] [email or web address]) Palpation Assessment Location One Palpation Location PSIS and sacral NELY. saral base Palpation Findings Soft Tissue Tightness Muscle Guarding Tenderness Palpation Details tenderness on either side of the sacrum with muscle guarding, tenderness to palpation at the sacral base and PSIS bilaterally PT-OP-K Range of Motion Start: 08/18/17 20:48 Freq: Status: Active Protocol: Document 10/12/17 09:45 [facility] (Rec: 10/15/17 14:22 [facility] [email or web address]) Lumbar Spine Range of Motion Lumbar Spine Active Testing Position standing Flexion 80 Lateral Flexion Left 65 Lateral Flexion Right 55 Comments decreased overall tightness PT-OP-Q Treatments Start: 08/18/17 20:48 Freq: Status: Active Protocol: Document 11/02/17 17:24 [facility] (Rec: 11/02/17 17:30 [facility] [email or web address]) Therapeutic Exercises Sitting Exercises 1 Sitting Exercise Name seated scalene and upper trapezius stretches Manual Therapy Treatment Soft Tissue Mobilization 5 Body Location right upper trapezius and thoracic parapsinal release Mobilization Type Myofascial Release Body Position Sitting Manual Techniques 2 Type supine cervical spine manual stretches PT-OP-R Modalities Start: 09/07/17 15:56 Freq: Status: Active Protocol: Document 11/02/17 17:24 [facility] (Rec: 11/02/17 17:30 [facility] [email or web address]) Ultrasound Therapy Treatment right upper trapexius Treatment Duration (minutes) 8 Patient Position Sitting Coupling Medium Ultrasound Gel Applicator Size (cm2) 5 Frequency Setting (mHz) 1 Mode Setting Continuous Duty Cycle 100% Intensity Setting (w/cm2) 1.5 PT-OP-T Assessment and Plan Start: 08/18/17 20:48 Freq: Status: Active Protocol: Document 11/02/17 17:24 [facility] (Rec: 11/02/17 17:30 [facility] [email or web address]) Physical Therapy Assessment Assessment Summary Assessment reviewed cervical spine stretches for home, Nasra Neff tolerated treatment well Physical Therapy Plan Frequency and Duration Frequency of Treatment 2x/Week Duration of Treatment 8 weeks Plan of Care Start Date 10/12/17 Plan of Care End Date 12/07/17 Therapeutic Interventions Therapeutic Interventions Home Exercise Program Joint Mobilizations Manual Therapy Neuromuscular Re-education Patient/Caregiver Education Self-Care/Home Management Therapeutic Exercises Modalities Ultrasound Next Visit Focus/Plan Next Note Type Treatment Note Next Visit Plan progress stabilization as Nasra Neff can tolerate
--- NOTE | 2017-11-07 12:20 | PT.OTN ---
Current Diagnoses Dorsalgia, unspecified (11/07/17) Physical Therapy Treatment Note PT-OP-A Visit Information Start: 08/18/17 20:48 Freq: Status: Active Protocol: Document 11/07/17 12:13 [facility] (Rec: 11/07/17 12:20 [facility] [email or web address]) Out-Patient Physical Therapy Visit Information Visit Information Visit Type Treatment Note Visit Start Time 11:15 Visit Stop Time 12:00 Total Visit Minutes 45 Visit Number 11 Number of COMPUTER OPERATIONS MANAGER Visits 0 PT-OP-B Current Condition Start: 08/18/17 20:48 Freq: Status: Active Protocol: Document 08/17/17 13:00 [facility] (Rec: 08/18/17 21:05 [facility] [email or web address]) Current Condition History of Current Condition Onset Date recent onset of sacral/LBP 3 weeks ago Current Complaints alternating left and right sided sacral pain History of Current Condition nasra 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 She was doing well with her home stabilization program and aquatic exercise but recently flared her sacrum and SI joint after doing a abdominal exercise. She has been complaining of SI joint pain since Prior Functional Status Baseline Function- ADL's Independent Baseline Function- Mobility Independent Current Functional Impairments (Reported) Functional Limitations- ADL's limited with activities that require bending and lifting Functional Limitations- Mobility/Gait pain with walking greater than 1 mile PT-OP-C Subjective Start: 08/18/17 20:48 Freq: Status: Active Protocol: Document 11/07/17 12:13 [facility] (Rec: 11/07/17 12:20 [facility] [email or web address]) OP-PT Subjective Patient Comments Patient Comments feels better in the upper trapezius today, mainly right sided sacral tightness today PT-OP-F Manual Assessment Start: 08/18/17 20:48 Freq: Status: Active Protocol: Document 08/17/17 13:00 [facility] (Rec: 08/18/17 21:05 [facility] [email or web address]) Manual Assessments Soft Tissue Assessment Soft Tissue Mobility Assessment tightness in the piriformis muscle left greater than right Joint Mobility Assessment Joint Mobility Assessment + ASLR test for right SI instability and sacrum is rotated to the right PT-OP-J Posture/Palpation/Skin Start: 08/18/17 20:48 Freq: Status: Active Protocol: Document 08/17/17 13:00 [facility] (Rec: 08/18/17 21:05 [facility] [email or web address]) Palpation Assessment Location One Palpation Location PSIS and sacral NELY. saral base Palpation Findings Soft Tissue Tightness Muscle Guarding Tenderness Palpation Details tenderness on either side of the sacrum with muscle guarding, tenderness to palpation at the sacral base and PSIS bilaterally PT-OP-K Range of Motion Start: 08/18/17 20:48 Freq: Status: Active Protocol: Document 10/12/17 09:45 [facility] (Rec: 10/15/17 14:22 [facility] [email or web address]) Lumbar Spine Range of Motion Lumbar Spine Active Testing Position standing Flexion 80 Lateral Flexion Left 65 Lateral Flexion Right 55 Comments decreased overall tightness PT-OP-Q Treatments Start: 08/18/17 20:48 Freq: Status: Active Protocol: Document 11/07/17 12:13 [facility] (Rec: 11/07/17 12:20 [facility] [email or web address]) Therapeutic Exercises Other Exercises 3 Other Exercise Name quadraped sidebends 2 Other Exercise Name prayer stretch with walking hands to the left 1 Other Exercise Name quadraped pelvic tilts and thoracic rotation Manual Therapy Treatment Soft Tissue Mobilization 2 Body Location lumbar paraspinal MFR Body Position Prone Comments worked on releasing the left side of the lumbar paraspinals and Quadratus lumborum Joint Mobilizations 1 Joint MET for sacral counter nutation PT-OP-R Modalities Start: 09/07/17 15:56 Freq: Status: Active Protocol: Document 11/02/17 17:24 [facility] (Rec: 11/02/17 17:30 [facility] [email or web address]) Ultrasound Therapy Treatment right upper trapexius Treatment Duration (minutes) 8 Patient Position Sitting Coupling Medium Ultrasound Gel Applicator Size (cm2) 5 Frequency Setting (mHz) 1 Mode Setting Continuous Duty Cycle 100% Intensity Setting (w/cm2) 1.5 PT-OP-T Assessment and Plan Start: 08/18/17 20:48 Freq: Status: Active Protocol: Document 11/07/17 12:13 [facility] (Rec: 11/07/17 12:20 [facility] [email or web address]) Physical Therapy Assessment Assessment Summary Assessment discussed placing miracle balls on the left side of the thoracic spine for improved thoracic rotation right. Work on the left lumbar and thoracic paraspinals does relax the right sacral base Physical Therapy Plan Frequency and Duration Frequency of Treatment 2x/Week Duration of Treatment 8 weeks Plan of Care Start Date 10/12/17 Plan of Care End Date 12/07/17 Therapeutic Interventions Therapeutic Interventions Home Exercise Program Joint Mobilizations Manual Therapy Neuromuscular Re-education Patient/Caregiver Education Self-Care/Home Management Therapeutic Exercises Modalities Ultrasound Next Visit Focus/Plan Next Note Type Treatment Note Next Visit Plan progress stabilization as Nasra Neff can tolerate
--- NOTE | 2017-11-13 17:11 | PT.OTN ---
Current Diagnoses Dorsalgia, unspecified (11/09/17) Physical Therapy Treatment Note PT-OP-A Visit Information Start: 08/18/17 20:48 Freq: Status: Active Protocol: Document 11/07/17 12:13 [facility] (Rec: 11/07/17 12:20 [facility] [email or web address]) Out-Patient Physical Therapy Visit Information Visit Information Visit Type Treatment Note Visit Start Time 11:15 Visit Stop Time 12:00 Total Visit Minutes 45 Visit Number 11 Number of ASSISTANT ELEMENTARY TEACHER Visits 0 PT-OP-B Current Condition Start: 08/18/17 20:48 Freq: Status: Active Protocol: Document 08/17/17 13:00 [facility] (Rec: 08/18/17 21:05 [facility] [email or web address]) Current Condition History of Current Condition Onset Date recent onset of sacral/LBP 3 weeks ago Current Complaints alternating left and right sided sacral pain History of Current Condition nasra 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 She was doing well with her home stabilization program and aquatic exercise but recently flared her sacrum and SI joint after doing a abdominal exercise. She has been complaining of SI joint pain since Prior Functional Status Baseline Function- ADL's Independent Baseline Function- Mobility Independent Current Functional Impairments (Reported) Functional Limitations- ADL's limited with activities that require bending and lifting Functional Limitations- Mobility/Gait pain with walking greater than 1 mile PT-OP-C Subjective Start: 08/18/17 20:48 Freq: Status: Active Protocol: Document 11/13/17 17:07 [facility] (Rec: 11/13/17 17:11 [facility] [email or web address]) OP-PT Subjective Patient Comments Patient Comments Neck is not as tight, and treatment helped last visit. Nasra neff reports she has been doing all her exercises PT-OP-F Manual Assessment Start: 08/18/17 20:48 Freq: Status: Active Protocol: Document 08/17/17 13:00 [facility] (Rec: 08/18/17 21:05 [facility] [email or web address]) Manual Assessments Soft Tissue Assessment Soft Tissue Mobility Assessment tightness in the piriformis muscle left greater than right Joint Mobility Assessment Joint Mobility Assessment + ASLR test for right SI instability and sacrum is rotated to the right PT-OP-J Posture/Palpation/Skin Start: 08/18/17 20:48 Freq: Status: Active Protocol: Document 08/17/17 13:00 [facility] (Rec: 08/18/17 21:05 [facility] [email or web address]) Palpation Assessment Location One Palpation Location PSIS and sacral NELY. saral base Palpation Findings Soft Tissue Tightness Muscle Guarding Tenderness Palpation Details tenderness on either side of the sacrum with muscle guarding, tenderness to palpation at the sacral base and PSIS bilaterally PT-OP-K Range of Motion Start: 08/18/17 20:48 Freq: Status: Active Protocol: Document 10/12/17 09:45 [facility] (Rec: 10/15/17 14:22 [facility] [email or web address]) Lumbar Spine Range of Motion Lumbar Spine Active Testing Position standing Flexion 80 Lateral Flexion Left 65 Lateral Flexion Right 55 Comments decreased overall tightness PT-OP-Q Treatments Start: 08/18/17 20:48 Freq: Status: Active Protocol: Document 11/13/17 17:07 [facility] (Rec: 11/13/17 17:11 [facility] [email or web address]) Therapeutic Exercises Prone Exercises 1 Prone Exercise Name TA with opposite arm lift Sitting Exercises 1 Sitting Exercise Name seated scalene and upper trapezius stretches Other Exercises 3 Other Exercise Name quadraped sidebends 2 Other Exercise Name prayer stretch with walking hands to the left 1 Other Exercise Name quadraped pelvic tilts and thoracic rotation Manual Therapy Treatment Soft Tissue Mobilization 2 Body Location lumbar paraspinal MFR Body Position Prone Comments worked on releasing the left side of the lumbar paraspinals and Quadratus lumborum Joint Mobilizations 1 Joint MET for sacral counter nutation PT-OP-R Modalities Start: 09/07/17 15:56 Freq: Status: Active Protocol: Document 11/02/17 17:24 [facility] (Rec: 11/02/17 17:30 [facility] [email or web address]) Ultrasound Therapy Treatment right upper trapexius Treatment Duration (minutes) 8 Patient Position Sitting Coupling Medium Ultrasound Gel Applicator Size (cm2) 5 Frequency Setting (mHz) 1 Mode Setting Continuous Duty Cycle 100% Intensity Setting (w/cm2) 1.5 PT-OP-T Assessment and Plan Start: 08/18/17 20:48 Freq: Status: Active Protocol: Document 11/13/17 17:07 [facility] (Rec: 11/13/17 17:11 [facility] [email or web address]) Physical Therapy Assessment Assessment Summary Assessment Nini is working on her home program, decreased tightness today in her sacral region Physical Therapy Plan Frequency and Duration Frequency of Treatment 2x/Week Duration of Treatment 8 weeks Plan of Care Start Date 10/12/17 Plan of Care End Date 12/07/17 Therapeutic Interventions Therapeutic Interventions Home Exercise Program Joint Mobilizations Manual Therapy Neuromuscular Re-education Patient/Caregiver Education Self-Care/Home Management Therapeutic Exercises Modalities Ultrasound Next Visit Focus/Plan Next Note Type Treatment Note Next Visit Plan reassess leg length and lumbar spine ROM
--- NOTE | 2017-11-28 17:12 | PT.OTN ---
Current Diagnoses Dorsalgia, unspecified (11/28/17) Physical Therapy Treatment Note PT-OP-A Visit Information Start: 08/18/17 20:48 Freq: Status: Active Protocol: Document 11/23/17 17:06 [facility] (Rec: 11/28/17 17:11 [facility] [email or web address]) Out-Patient Physical Therapy Visit Information Visit Information Visit Type Treatment Note Visit Start Time 10:40 Visit Stop Time 11:15 Total Visit Minutes 35 Visit Number 12 Number of HELPER STEEL FABRICATION Visits 0 Evaluation Information Evaluation Date 08/17/17 PT-OP-B Current Condition Start: 08/18/17 20:48 Freq: Status: Active Protocol: Document 08/17/17 13:00 [facility] (Rec: 08/18/17 21:05 [facility] [email or web address]) Current Condition History of Current Condition Onset Date recent onset of sacral/LBP 3 weeks ago Current Complaints alternating left and right sided sacral pain History of Current Condition nasra 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 She was doing well with her home stabilization program and aquatic exercise but recently flared her sacrum and SI joint after doing a abdominal exercise. She has been complaining of SI joint pain since Prior Functional Status Baseline Function- ADL's Independent Baseline Function- Mobility Independent Current Functional Impairments (Reported) Functional Limitations- ADL's limited with activities that require bending and lifting Functional Limitations- Mobility/Gait pain with walking greater than 1 mile PT-OP-C Subjective Start: 08/18/17 20:48 Freq: Status: Active Protocol: Document 11/23/17 17:06 [facility] (Rec: 11/28/17 17:11 [facility] [email or web address]) OP-PT Subjective Patient Comments Patient Comments Nini reports she aggravated her left side when sitting to cut her nails. She feels tightness in her left ITB today PT-OP-F Manual Assessment Start: 08/18/17 20:48 Freq: Status: Active Protocol: Document 08/17/17 13:00 [facility] (Rec: 08/18/17 21:05 [facility] [email or web address]) Manual Assessments Soft Tissue Assessment Soft Tissue Mobility Assessment tightness in the piriformis muscle left greater than right Joint Mobility Assessment Joint Mobility Assessment + ASLR test for right SI instability and sacrum is rotated to the right PT-OP-J Posture/Palpation/Skin Start: 08/18/17 20:48 Freq: Status: Active Protocol: Document 08/17/17 13:00 [facility] (Rec: 08/18/17 21:05 [facility] [email or web address]) Palpation Assessment Location One Palpation Location PSIS and sacral NELY. saral base Palpation Findings Soft Tissue Tightness Muscle Guarding Tenderness Palpation Details tenderness on either side of the sacrum with muscle guarding, tenderness to palpation at the sacral base and PSIS bilaterally PT-OP-K Range of Motion Start: 08/18/17 20:48 Freq: Status: Active Protocol: Document 10/12/17 09:45 [facility] (Rec: 10/15/17 14:22 [facility] [email or web address]) Lumbar Spine Range of Motion Lumbar Spine Active Testing Position standing Flexion 80 Lateral Flexion Left 65 Lateral Flexion Right 55 Comments decreased overall tightness PT-OP-Q Treatments Start: 08/18/17 20:48 Freq: Status: Active Protocol: Document 11/23/17 17:06 [facility] (Rec: 11/28/17 17:11 [facility] [email or web address]) Manual Therapy Treatment Soft Tissue Mobilization 2 Body Location lumbar paraspinal MFR Body Position Prone Comments worked on releasing the left side of the lumbar paraspinals and Quadratus lumborum 1 Body Location left ITB release PT-OP-R Modalities Start: 09/07/17 15:56 Freq: Status: Active Protocol: Document 11/02/17 17:24 [facility] (Rec: 11/02/17 17:30 [facility] [email or web address]) Ultrasound Therapy Treatment right upper trapexius Treatment Duration (minutes) 8 Patient Position Sitting Coupling Medium Ultrasound Gel Applicator Size (cm2) 5 Frequency Setting (mHz) 1 Mode Setting Continuous Duty Cycle 100% Intensity Setting (w/cm2) 1.5 PT-OP-T Assessment and Plan Start: 08/18/17 20:48 Freq: Status: Active Protocol: Document 11/23/17 17:06 [facility] (Rec: 11/28/17 17:11 [facility] [email or web address]) Physical Therapy Assessment Assessment Summary Assessment worked on the ITB today on the left. Reviewed hip stretches for HEP Physical Therapy Plan Frequency and Duration Frequency of Treatment 2x/Week Duration of Treatment 8 weeks Plan of Care Start Date 10/12/17 Plan of Care End Date 12/07/17 Therapeutic Interventions Therapeutic Interventions Home Exercise Program Joint Mobilizations Manual Therapy Neuromuscular Re-education Patient/Caregiver Education Self-Care/Home Management Therapeutic Exercises Modalities Ultrasound Next Visit Focus/Plan Next Note Type Treatment Note Next Visit Plan reassess leg length and lumbar spine ROM
--- NOTE | 2017-11-28 17:22 | PT.OTN ---
Current Diagnoses Dorsalgia, unspecified (11/28/17) Physical Therapy Treatment Note PT-OP-A Visit Information Start: 08/18/17 20:48 Freq: Status: Active Protocol: Document 11/28/17 17:12 [facility] (Rec: 11/28/17 17:22 [facility] [email or web address]) Out-Patient Physical Therapy Visit Information Visit Information Visit Type Treatment Note Visit Start Time 16:00 Visit Stop Time 16:45 Total Visit Minutes 45 Visit Number 13 Number of TERRAZZO WORKER APPRENTICE Visits 0 Evaluation Information Evaluation Date 08/17/17 PT-OP-B Current Condition Start: 08/18/17 20:48 Freq: Status: Active Protocol: Document 08/17/17 13:00 [facility] (Rec: 08/18/17 21:05 [facility] [email or web address]) Current Condition History of Current Condition Onset Date recent onset of sacral/LBP 3 weeks ago Current Complaints alternating left and right sided sacral pain History of Current Condition nasra 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 She was doing well with her home stabilization program and aquatic exercise but recently flared her sacrum and SI joint after doing a abdominal exercise. She has been complaining of SI joint pain since Prior Functional Status Baseline Function- ADL's Independent Baseline Function- Mobility Independent Current Functional Impairments (Reported) Functional Limitations- ADL's limited with activities that require bending and lifting Functional Limitations- Mobility/Gait pain with walking greater than 1 mile PT-OP-C Subjective Start: 08/18/17 20:48 Freq: Status: Active Protocol: Document 11/28/17 17:12 [facility] (Rec: 11/28/17 17:22 [facility] [email or web address]) OP-PT Subjective Patient Comments Patient Comments decreased c/o symptoms today but still feeling tight at the ITB and left sacrum PT-OP-F Manual Assessment Start: 08/18/17 20:48 Freq: Status: Active Protocol: Document 08/17/17 13:00 [facility] (Rec: 08/18/17 21:05 [facility] [email or web address]) Manual Assessments Soft Tissue Assessment Soft Tissue Mobility Assessment tightness in the piriformis muscle left greater than right Joint Mobility Assessment Joint Mobility Assessment + ASLR test for right SI instability and sacrum is rotated to the right PT-OP-J Posture/Palpation/Skin Start: 08/18/17 20:48 Freq: Status: Active Protocol: Document 08/17/17 13:00 [facility] (Rec: 08/18/17 21:05 [facility] [email or web address]) Palpation Assessment Location One Palpation Location PSIS and sacral NELY. saral base Palpation Findings Soft Tissue Tightness Muscle Guarding Tenderness Palpation Details tenderness on either side of the sacrum with muscle guarding, tenderness to palpation at the sacral base and PSIS bilaterally PT-OP-K Range of Motion Start: 08/18/17 20:48 Freq: Status: Active Protocol: Document 10/12/17 09:45 [facility] (Rec: 10/15/17 14:22 [facility] [email or web address]) Lumbar Spine Range of Motion Lumbar Spine Active Testing Position standing Flexion 80 Lateral Flexion Left 65 Lateral Flexion Right 55 Comments decreased overall tightness PT-OP-Q Treatments Start: 08/18/17 20:48 Freq: Status: Active Protocol: Document 11/28/17 17:12 [facility] (Rec: 11/28/17 17:22 [facility] [email or web address]) Manual Therapy Treatment Soft Tissue Mobilization 3 Body Location left tibial anterior release 2 Body Location lumbar paraspinal MFR Body Position Prone Comments worked on releasing the left side of the lumbar paraspinals and Quadratus lumborum 1 Body Location left ITB release PT-OP-R Modalities Start: 09/07/17 15:56 Freq: Status: Active Protocol: Document 11/02/17 17:24 [facility] (Rec: 11/02/17 17:30 [facility] [email or web address]) Ultrasound Therapy Treatment right upper trapexius Treatment Duration (minutes) 8 Patient Position Sitting Coupling Medium Ultrasound Gel Applicator Size (cm2) 5 Frequency Setting (mHz) 1 Mode Setting Continuous Duty Cycle 100% Intensity Setting (w/cm2) 1.5 PT-OP-T Assessment and Plan Start: 08/18/17 20:48 Freq: Status: Active Protocol: Document 11/28/17 17:12 [facility] (Rec: 11/28/17 17:22 [facility] [email or web address]) Physical Therapy Assessment Assessment Summary Assessment discussed going back to ankle eversion exercises as Nasra Neff tends to internally rotate her left foot causing her ITB to tightnen Physical Therapy Plan Frequency and Duration Frequency of Treatment 2x/Week Duration of Treatment 8 weeks Plan of Care Start Date 10/12/17 Plan of Care End Date 12/07/17 Therapeutic Interventions Therapeutic Interventions Home Exercise Program Joint Mobilizations Manual Therapy Neuromuscular Re-education Patient/Caregiver Education Self-Care/Home Management Therapeutic Exercises Modalities Ultrasound Next Visit Focus/Plan Next Note Type Treatment Note Next Visit Plan reassess leg length and lumbar spine ROM
--- NOTE | 2017-12-26 16:55 | PT.OTN ---
Current Diagnoses Dorsalgia, unspecified (12/26/17) Physical Therapy Treatment Note PT-OP-A Visit Information Start: 08/18/17 20:48 Freq: Status: Active Protocol: Document 12/26/17 16:50 [facility] (Rec: 12/26/17 16:55 [facility] [email or web address]) Out-Patient Physical Therapy Visit Information Visit Information Visit Type Treatment Note Visit Start Time 09:00 Visit Stop Time 09:45 Total Visit Minutes 45 Visit Number 15 Number of MAILING JOGGER Visits 0 Evaluation Information Evaluation Date 08/17/17 PT-OP-B Current Condition Start: 08/18/17 20:48 Freq: Status: Active Protocol: Document 08/17/17 13:00 [facility] (Rec: 08/18/17 21:05 [facility] [email or web address]) Current Condition History of Current Condition Onset Date recent onset of sacral/LBP 3 weeks ago Current Complaints alternating left and right sided sacral pain History of Current Condition nasra 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 She was doing well with her home stabilization program and aquatic exercise but recently flared her sacrum and SI joint after doing a abdominal exercise. She has been complaining of SI joint pain since Prior Functional Status Baseline Function- ADL's Independent Baseline Function- Mobility Independent Current Functional Impairments (Reported) Functional Limitations- ADL's limited with activities that require bending and lifting Functional Limitations- Mobility/Gait pain with walking greater than 1 mile PT-OP-C Subjective Start: 08/18/17 20:48 Freq: Status: Active Protocol: Document 12/26/17 16:50 [facility] (Rec: 12/26/17 16:55 [facility] [email or web address]) OP-PT Subjective Patient Comments Patient Comments left sided sacral symptoms today but overall things are improving as she is doing all her ther ex Patient Reported Progress Improving PT-OP-F Manual Assessment Start: 08/18/17 20:48 Freq: Status: Active Protocol: Document 08/17/17 13:00 [facility] (Rec: 08/18/17 21:05 [facility] [email or web address]) Manual Assessments Soft Tissue Assessment Soft Tissue Mobility Assessment tightness in the piriformis muscle left greater than right Joint Mobility Assessment Joint Mobility Assessment + ASLR test for right SI instability and sacrum is rotated to the right PT-OP-J Posture/Palpation/Skin Start: 08/18/17 20:48 Freq: Status: Active Protocol: Document 08/17/17 13:00 [facility] (Rec: 08/18/17 21:05 [facility] [email or web address]) Palpation Assessment Location One Palpation Location PSIS and sacral NELY. saral base Palpation Findings Soft Tissue Tightness Muscle Guarding Tenderness Palpation Details tenderness on either side of the sacrum with muscle guarding, tenderness to palpation at the sacral base and PSIS bilaterally PT-OP-K Range of Motion Start: 08/18/17 20:48 Freq: Status: Active Protocol: Document 10/12/17 09:45 [facility] (Rec: 10/15/17 14:22 [facility] [email or web address]) Lumbar Spine Range of Motion Lumbar Spine Active Testing Position standing Flexion 80 Lateral Flexion Left 65 Lateral Flexion Right 55 Comments decreased overall tightness PT-OP-Q Treatments Start: 08/18/17 20:48 Freq: Status: Active Protocol: Document 12/26/17 16:50 [facility] (Rec: 12/26/17 16:55 [facility] [email or web address]) Therapeutic Exercises Supine Exercises 3 Supine Exercise Name supine ITB stretch with strap Other Exercises 3 Other Exercise Name quadraped sidebends 1 Other Exercise Name quadraped pelvic tilts and thoracic rotation Manual Therapy Treatment Soft Tissue Mobilization 2 Body Location lumbar paraspinal MFR Body Position Prone Comments worked on releasing the left side of the lumbar paraspinals and Quadratus lumborum PT-OP-R Modalities Start: 09/07/17 15:56 Freq: Status: Active Protocol: Document 11/02/17 17:24 [facility] (Rec: 11/02/17 17:30 [facility] [email or web address]) Ultrasound Therapy Treatment right upper trapexius Treatment Duration (minutes) 8 Patient Position Sitting Coupling Medium Ultrasound Gel Applicator Size (cm2) 5 Frequency Setting (mHz) 1 Mode Setting Continuous Duty Cycle 100% Intensity Setting (w/cm2) 1.5 PT-OP-T Assessment and Plan Start: 08/18/17 20:48 Freq: Status: Active Protocol: Document 12/26/17 16:50 [facility] (Rec: 12/26/17 16:55 [facility] [email or web address]) Physical Therapy Assessment Assessment Summary Assessment pt will be seen two more visits for HEP instruction then DC PT to a [facility] Physical Therapy Plan Frequency and Duration Frequency of Treatment 2x/Week Duration of Treatment 8 weeks Plan of Care Start Date 12/19/17 Plan of Care End Date 02/27/18 Therapeutic Interventions Therapeutic Interventions Home Exercise Program Joint Mobilizations Manual Therapy Neuromuscular Re-education Patient/Caregiver Education Self-Care/Home Management Therapeutic Exercises Modalities Ultrasound Next Visit Focus/Plan Next Note Type Treatment Note Next Visit Plan HEP review next visit in preparation for DC
--- NOTE | 2017-12-28 14:04 | PT.OTN ---
Current Diagnoses Dorsalgia, unspecified (12/28/17) Physical Therapy Treatment Note PT-OP-A Visit Information Start: 08/18/17 20:48 Freq: Status: Active Protocol: Document 12/28/17 14:00 [facility] (Rec: 12/28/17 14:03 [facility] [email or web address]) Out-Patient Physical Therapy Visit Information Visit Information Visit Type Treatment Note Visit Start Time 11:15 Visit Stop Time 12:00 Total Visit Minutes 45 Visit Number 16 Number of PAYROLL AND BENEFITS COORDINATOR Visits 0 PT-OP-B Current Condition Start: 08/18/17 20:48 Freq: Status: Active Protocol: Document 08/17/17 13:00 [facility] (Rec: 08/18/17 21:05 [facility] [email or web address]) Current Condition History of Current Condition Onset Date recent onset of sacral/LBP 3 weeks ago Current Complaints alternating left and right sided sacral pain History of Current Condition nasra 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 She was doing well with her home stabilization program and aquatic exercise but recently flared her sacrum and SI joint after doing a abdominal exercise. She has been complaining of SI joint pain since Prior Functional Status Baseline Function- ADL's Independent Baseline Function- Mobility Independent Current Functional Impairments (Reported) Functional Limitations- ADL's limited with activities that require bending and lifting Functional Limitations- Mobility/Gait pain with walking greater than 1 mile PT-OP-C Subjective Start: 08/18/17 20:48 Freq: Status: Active Protocol: Document 12/26/17 16:50 [facility] (Rec: 12/26/17 16:55 [facility] [email or web address]) OP-PT Subjective Patient Comments Patient Comments left sided sacral symptoms today but overall things are improving as she is doing all her ther ex Patient Reported Progress Improving PT-OP-F Manual Assessment Start: 08/18/17 20:48 Freq: Status: Active Protocol: Document 08/17/17 13:00 [facility] (Rec: 08/18/17 21:05 [facility] [email or web address]) Manual Assessments Soft Tissue Assessment Soft Tissue Mobility Assessment tightness in the piriformis muscle left greater than right Joint Mobility Assessment Joint Mobility Assessment + ASLR test for right SI instability and sacrum is rotated to the right PT-OP-J Posture/Palpation/Skin Start: 08/18/17 20:48 Freq: Status: Active Protocol: Document 08/17/17 13:00 [facility] (Rec: 08/18/17 21:05 [facility] [email or web address]) Palpation Assessment Location One Palpation Location PSIS and sacral NELY. saral base Palpation Findings Soft Tissue Tightness Muscle Guarding Tenderness Palpation Details tenderness on either side of the sacrum with muscle guarding, tenderness to palpation at the sacral base and PSIS bilaterally PT-OP-K Range of Motion Start: 08/18/17 20:48 Freq: Status: Active Protocol: Document 10/12/17 09:45 [facility] (Rec: 10/15/17 14:22 [facility] [email or web address]) Lumbar Spine Range of Motion Lumbar Spine Active Testing Position standing Flexion 80 Lateral Flexion Left 65 Lateral Flexion Right 55 Comments decreased overall tightness PT-OP-Q Treatments Start: 08/18/17 20:48 Freq: Status: Active Protocol: Document 12/28/17 14:00 [facility] (Rec: 12/28/17 14:03 [facility] [email or web address]) Therapeutic Exercises Prone Exercises 1 Prone Exercise Name prone thoracic extension Other Exercises 2 Other Exercise Name quadraped TA facilitation with breathing Reps/Minutes 10 reps 1 Other Exercise Name quadraped pelvic tilts and thoracic rotation PT-OP-R Modalities Start: 09/07/17 15:56 Freq: Status: Active Protocol: Document 11/02/17 17:24 [facility] (Rec: 11/02/17 17:30 [facility] [email or web address]) Ultrasound Therapy Treatment right upper trapexius Treatment Duration (minutes) 8 Patient Position Sitting Coupling Medium Ultrasound Gel Applicator Size (cm2) 5 Frequency Setting (mHz) 1 Mode Setting Continuous Duty Cycle 100% Intensity Setting (w/cm2) 1.5 PT-OP-T Assessment and Plan Start: 08/18/17 20:48 Freq: Status: Active Protocol: Document 12/28/17 14:00 [facility] (Rec: 12/28/17 14:03 [facility] [email or web address]) Physical Therapy Assessment Assessment Summary Assessment much looser in the piriformis muscle on the left today. Good review of HEP and Rama demonstrates good knowledge of her home program Physical Therapy Plan Frequency and Duration Frequency of Treatment 2x/Week Duration of Treatment 8 weeks Plan of Care Start Date 12/19/17 Plan of Care End Date 02/27/18 Therapeutic Interventions Therapeutic Interventions Home Exercise Program Joint Mobilizations Manual Therapy Neuromuscular Re-education Patient/Caregiver Education Self-Care/Home Management Therapeutic Exercises Modalities Ultrasound Next Visit Focus/Plan Next Note Type Treatment Note Next Visit Plan continue for one visit then DC
--- NOTE | 2018-01-02 18:04 | PT.OTN ---
Current Diagnoses Dorsalgia, unspecified (01/02/18) Physical Therapy Treatment Note PT-OP-A Visit Information Start: 08/18/17 20:48 Freq: Status: Active Protocol: Document 01/02/18 17:51 [facility] (Rec: 01/02/18 17:58 [facility] [email or web address]) Out-Patient Physical Therapy Visit Information Visit Information Visit Type Treatment Note Visit Start Time 14:30 Visit Stop Time 15:15 Total Visit Minutes 45 Visit Number 17 Number of MANAGER DOCUMENT Visits 0 Evaluation Information Evaluation Date 08/17/17 PT-OP-B Current Condition Start: 08/18/17 20:48 Freq: Status: Active Protocol: Document 08/17/17 13:00 [facility] (Rec: 08/18/17 21:05 [facility] [email or web address]) Current Condition History of Current Condition Onset Date recent onset of sacral/LBP 3 weeks ago Current Complaints alternating left and right sided sacral pain History of Current Condition nasra 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 She was doing well with her home stabilization program and aquatic exercise but recently flared her sacrum and SI joint after doing a abdominal exercise. She has been complaining of SI joint pain since Prior Functional Status Baseline Function- ADL's Independent Baseline Function- Mobility Independent Current Functional Impairments (Reported) Functional Limitations- ADL's limited with activities that require bending and lifting Functional Limitations- Mobility/Gait pain with walking greater than 1 mile PT-OP-C Subjective Start: 08/18/17 20:48 Freq: Status: Active Protocol: Document 01/02/18 17:51 [facility] (Rec: 01/02/18 17:58 [facility] [email or web address]) OP-PT Subjective Patient Comments Patient Comments Nini reports she has been really working hard on doing her exercises and her pool therapy. She still feels her left sacrum especially first thing in the am but this does improve as the day goes on. Patient Reported Progress Improving PT-OP-F Manual Assessment Start: 08/18/17 20:48 Freq: Status: Active Protocol: Document 08/17/17 13:00 [facility] (Rec: 08/18/17 21:05 [facility] [email or web address]) Manual Assessments Soft Tissue Assessment Soft Tissue Mobility Assessment tightness in the piriformis muscle left greater than right Joint Mobility Assessment Joint Mobility Assessment + ASLR test for right SI instability and sacrum is rotated to the right PT-OP-J Posture/Palpation/Skin Start: 08/18/17 20:48 Freq: Status: Active Protocol: Document 08/17/17 13:00 [facility] (Rec: 08/18/17 21:05 [facility] [email or web address]) Palpation Assessment Location One Palpation Location PSIS and sacral NELY. saral base Palpation Findings Soft Tissue Tightness Muscle Guarding Tenderness Palpation Details tenderness on either side of the sacrum with muscle guarding, tenderness to palpation at the sacral base and PSIS bilaterally PT-OP-K Range of Motion Start: 08/18/17 20:48 Freq: Status: Active Protocol: Document 10/12/17 09:45 [facility] (Rec: 10/15/17 14:22 [facility] [email or web address]) Lumbar Spine Range of Motion Lumbar Spine Active Testing Position standing Flexion 80 Lateral Flexion Left 65 Lateral Flexion Right 55 Comments decreased overall tightness PT-OP-Q Treatments Start: 08/18/17 20:48 Freq: Status: Active Protocol: Document 01/02/18 17:51 [facility] (Rec: 01/02/18 17:58 [facility] [email or web address]) Therapeutic Exercises Supine Exercises 3 Supine Exercise Name supine ITB stretch with strap Prone Exercises 1 Prone Exercise Name prone thoracic extension Other Exercises 4 Other Exercise Name quadraped TA with opposite arm and leg lifts Reps/Minutes 10 reps each 2 Other Exercise Name quadraped TA facilitation with breathing Reps/Minutes 10 reps Manual Therapy Treatment Soft Tissue Mobilization 2 Body Location lumbar paraspinal MFR Body Position Prone Comments worked on releasing the left side of the lumbar paraspinals and Quadratus lumborum PT-OP-R Modalities Start: 09/07/17 15:56 Freq: Status: Active Protocol: Document 11/02/17 17:24 [facility] (Rec: 11/02/17 17:30 [facility] [email or web address]) Ultrasound Therapy Treatment right upper trapexius Treatment Duration (minutes) 8 Patient Position Sitting Coupling Medium Ultrasound Gel Applicator Size (cm2) 5 Frequency Setting (mHz) 1 Mode Setting Continuous Duty Cycle 100% Intensity Setting (w/cm2) 1.5 PT-OP-T Assessment and Plan Start: 08/18/17 20:48 Freq: Status: Active Protocol: Document 01/02/18 17:51 [facility] (Rec: 01/02/18 17:58 [facility] [email or web address]) Physical Therapy Assessment Progress Towards Goals Progress Towards Goals Progressing Toward Goals Progress Comments good progress overall. At this point Nasra neff is independent with her home program and will be discharged from PT Assessment Summary Assessment DC from PT at this time as Nasra Neff has overall improved symptoms and is doing well with her Home exercise program Physical Therapy Plan Frequency and Duration Frequency of Treatment 2x/Week Duration of Treatment 8 weeks Plan of Care Start Date 12/19/17 Plan of Care End Date 02/27/18 Therapeutic Interventions Therapeutic Interventions Home Exercise Program Joint Mobilizations Manual Therapy Neuromuscular Re-education Patient/Caregiver Education Self-Care/Home Management Therapeutic Exercises Modalities Ultrasound Discharge Physical Therapy Discharge Reasons [place] in Progress Discharge Comments Independent with home exercise program
--- NOTE | 2018-02-01 15:54 | PT.OTN ---
Current Diagnoses Dorsalgia, unspecified (02/01/18) Physical Therapy Treatment Note PT-OP-A Visit Information Start: 08/18/17 20:48 Freq: Status: Active Protocol: Document 02/01/18 15:44 [facility] (Rec: 02/01/18 15:51 [facility] [email or web address]) Out-Patient Physical Therapy Visit Information Visit Information Visit Type Treatment Note Visit Start Time 02:35 Visit Stop Time 15:15 Total Visit Minutes 40 Visit Number 18 Number of TAPER MACHINE Visits 0 PT-OP-B Current Condition Start: 08/18/17 20:48 Freq: Status: Active Protocol: Document 08/17/17 13:00 [facility] (Rec: 08/18/17 21:05 [facility] [email or web address]) Current Condition History of Current Condition Onset Date recent onset of sacral/LBP 3 weeks ago Current Complaints alternating left and right sided sacral pain History of Current Condition nasra 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 She was doing well with her home stabilization program and aquatic exercise but recently flared her sacrum and SI joint after doing a abdominal exercise. She has been complaining of SI joint pain since Prior Functional Status Baseline Function- ADL's Independent Baseline Function- Mobility Independent Current Functional Impairments (Reported) Functional Limitations- ADL's limited with activities that require bending and lifting Functional Limitations- Mobility/Gait pain with walking greater than 1 mile PT-OP-C Subjective Start: 08/18/17 20:48 Freq: Status: Active Protocol: Document 01/02/18 17:51 [facility] (Rec: 01/02/18 17:58 [facility] [email or web address]) OP-PT Subjective Patient Comments Patient Comments Nini reports she has been really working hard on doing her exercises and her pool therapy. She still feels her left sacrum especially first thing in the am but this does improve as the day goes on. Patient Reported Progress Improving PT-OP-F Manual Assessment Start: 08/18/17 20:48 Freq: Status: Active Protocol: Document 08/17/17 13:00 [facility] (Rec: 08/18/17 21:05 [facility] [email or web address]) Manual Assessments Soft Tissue Assessment Soft Tissue Mobility Assessment tightness in the piriformis muscle left greater than right Joint Mobility Assessment Joint Mobility Assessment + ASLR test for right SI instability and sacrum is rotated to the right PT-OP-J Posture/Palpation/Skin Start: 08/18/17 20:48 Freq: Status: Active Protocol: Document 08/17/17 13:00 [facility] (Rec: 08/18/17 21:05 [facility] [email or web address]) Palpation Assessment Location One Palpation Location PSIS and sacral NELY. saral base Palpation Findings Soft Tissue Tightness Muscle Guarding Tenderness Palpation Details tenderness on either side of the sacrum with muscle guarding, tenderness to palpation at the sacral base and PSIS bilaterally PT-OP-K Range of Motion Start: 08/18/17 20:48 Freq: Status: Active Protocol: Document 10/12/17 09:45 [facility] (Rec: 10/15/17 14:22 [facility] [email or web address]) Lumbar Spine Range of Motion Lumbar Spine Active Testing Position standing Flexion 80 Lateral Flexion Left 65 Lateral Flexion Right 55 Comments decreased overall tightness PT-OP-Q Treatments Start: 08/18/17 20:48 Freq: Status: Active Protocol: Document 02/01/18 15:52 [facility] (Rec: 02/01/18 15:53 [facility] [email or web address]) Therapeutic Exercises Other Exercises 6 Other Exercise Name aiden pose 5 Other Exercise Name opposite arm and leg lifts 4 Other Exercise Name quadraped TA with opposite arm and leg lifts Reps/Minutes 10 reps each 3 Other Exercise Name quadraped sidebends 2 Other Exercise Name quadraped TA facilitation with breathing Reps/Minutes 10 reps 1 Other Exercise Name quadraped pelvic tilts and thoracic rotation Manual Therapy Treatment Soft Tissue Mobilization 2 Body Location lumbar paraspinal MFR Body Position Prone Comments worked on releasing the left side of the lumbar paraspinals and Quadratus lumborum Joint Mobilizations 3 Joint thoracic spine mobilzations in prone Comments grade II for improved thoracic extension 1 Joint MET for sacral counter nutation PT-OP-R Modalities Start: 09/07/17 15:56 Freq: Status: Active Protocol: Document 11/02/17 17:24 [facility] (Rec: 11/02/17 17:30 [facility] [email or web address]) Ultrasound Therapy Treatment right upper trapexius Treatment Duration (minutes) 8 Patient Position Sitting Coupling Medium Ultrasound Gel Applicator Size (cm2) 5 Frequency Setting (mHz) 1 Mode Setting Continuous Duty Cycle 100% Intensity Setting (w/cm2) 1.5 PT-OP-T Assessment and Plan Start: 08/18/17 20:48 Freq: Status: Active Protocol: Document 02/01/18 15:44 [facility] (Rec: 02/01/18 15:51 [facility] [email or web address]) Physical Therapy Assessment Rehab Potential Rehabilitation Potential Good Impairments Impairments Pain ROM Soft Tissue Mobility Goals Four Impairment decreased core stabilization Skilled Nursing Goal (LTG) Nasra Neff's core program for home is reviewed and she is properly performing her core stabilization exercises LTG Duration 8 weeks Three Impairment decreased lumbar spine ROM limited bending and lifting activities Skilled Nursing Goal (LTG) Improve lumbar spine ROM to WFL for return to full function with ADL's include bending and lifting activities Two Impairment muscle imbalances of the piriformis creating a torque on the sacrum Technical Support Professional Goal (LTG) improve flexibility of the piriformis on the left to reduce unequal pull on the sacrum One Impairment pain to palpation at the sacral borders due to sacral torsion Short Term Goal (STG) correct the sacral torsion with manual therapy techniques reducing pain at the sacrum Progress Towards Goals Progress Towards Goals Progressing Toward Goals Progress Comments Nini returns to PT today with onset of left sided sacral pain symptoms Assessment Summary Assessment The plan had been to discontinue Nasra Neff however she returns to PT today with left sided sacral pain. She has been doing her exercises and this helps but she notes tissue tightness due to her scoliosis si difficult to release on her own. Physical Therapy Plan Frequency and Duration Frequency of Treatment 2x/Week Duration of Treatment 8 weeks Plan of Care Start Date 02/01/18 Plan of Care End Date 04/24/18 Therapeutic Interventions Therapeutic Interventions Home Exercise Program Joint Mobilizations Manual Therapy Neuromuscular Re-education Patient/Caregiver Education Self-Care/Home Management Therapeutic Exercises Modalities Ultrasound Next Visit Focus/Plan Next Note Type Treatment Note Next Visit Plan sacral mobilizations next visit
--- NOTE | 2018-02-28 11:07 | PT.OPPOC ---
Current Diagnoses Dorsalgia, unspecified (02/28/18) Provider Visit Care Team Role Provider Type Lan Gomes MD Attending Provider Physician Family Provider Primary Care Provider Specialty: Family Practice Address: [address] [place] [address], [id number] Email: [email or web address] Plan Of Care PT-OP-T Assessment and Plan Start: 08/18/17 20:48 Freq: Status: Active Protocol: Document 02/28/18 10:58 [facility] (Rec: 02/28/18 11:06 [facility] [id number]) Physical Therapy Assessment Progress Towards Goals Progress Towards Goals Progressing Toward Goals Progress Comments Yaritza Neff continues to do well with her stretches and exercise routine at home. She is doing PT intermittently when needed for pelvic related pain due to her scoliosis. She tends to do a good maintence program and then will have a incident where her pelvis will slip out of alignment and this will cause pain. She responds well to manual therapy techniques as needed Assessment Summary Assessment Nini is doing much better overall with her home exercise program of stertching and stabilization as well as her pool program. She tends to do well for a while and will then need to have her low back and pelvis worked on again for alignment. She would like to continue PT as needed for her low back and pelvis Physical Therapy Plan Frequency and Duration Frequency of Treatment 2x/Week Duration of Treatment 8 weeks Plan of Care Start Date 02/01/18 Plan of Care End Date 04/24/18 Therapeutic Interventions Therapeutic Interventions Home Exercise Program Joint Mobilizations Manual Therapy Neuromuscular Re-education Patient/Caregiver Education Self-Care/Home Management Therapeutic Exercises Modalities Ultrasound Next Visit Focus/Plan Next Note Type Treatment Note Next Visit Plan recheck pelvic alignment again next visit Plan of Care Dates Plan of Care Start Date 02/01/18 Plan of Care End Date 04/24/18 Please Sign and Return: I have reviewed this Plan of Care and certify that the skilled therapy services above are required to meet the patient?s needs. Physician Signature Date Printed Name and Credentials Clinical Instructor Signature Printed Name and Credentials
--- NOTE | 2018-02-28 11:07 | PT.OTN ---
Current Diagnoses Dorsalgia, unspecified (02/28/18) Physical Therapy Treatment Note PT-OP-A Visit Information Start: 08/18/17 20:48 Freq: Status: Active Protocol: Document 02/28/18 10:58 [facility] (Rec: 02/28/18 11:06 [facility] [id number]) Out-Patient Physical Therapy Visit Information Visit Information Visit Type Progress Note Visit Start Time 10:00 Visit Stop Time 10:45 Total Visit Minutes 45 Visit Number 1 Number of OFFICE SUPPORT Visits 0 Evaluation Information Evaluation Date 08/17/17 PT-OP-B Current Condition Start: 08/18/17 20:48 Freq: Status: Active Protocol: Document 08/17/17 13:00 [facility] (Rec: 08/18/17 21:05 [facility] [email or web address]) Current Condition History of Current Condition Onset Date recent onset of sacral/LBP 3 weeks ago Current Complaints alternating left and right sided sacral pain History of Current Condition nasra 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 She was doing well with her home stabilization program and aquatic exercise but recently flared her sacrum and SI joint after doing a abdominal exercise. She has been complaining of SI joint pain since Prior Functional Status Baseline Function- ADL's Independent Baseline Function- Mobility Independent Current Functional Impairments (Reported) Functional Limitations- ADL's limited with activities that require bending and lifting Functional Limitations- Mobility/Gait pain with walking greater than 1 mile PT-OP-C Subjective Start: 08/18/17 20:48 Freq: Status: Active Protocol: Document 02/28/18 10:58 [facility] (Rec: 02/28/18 11:06 [facility] [id number]) OP-PT Subjective Patient Comments Patient Comments Doing better overall. Was traveling and didn't experience pain with walking. Traveling home may have aggravated my pelvis and left gluteals and knee have been sore again PT-OP-F Manual Assessment Start: 08/18/17 20:48 Freq: Status: Active Protocol: Document 08/17/17 13:00 [facility] (Rec: 08/18/17 21:05 [facility] [email or web address]) Manual Assessments Soft Tissue Assessment Soft Tissue Mobility Assessment tightness in the piriformis muscle left greater than right Joint Mobility Assessment Joint Mobility Assessment + ASLR test for right SI instability and sacrum is rotated to the right PT-OP-J Posture/Palpation/Skin Start: 08/18/17 20:48 Freq: Status: Active Protocol: Document 08/17/17 13:00 [facility] (Rec: 08/18/17 21:05 [facility] [email or web address]) Palpation Assessment Location One Palpation Location PSIS and sacral NELY. saral base Palpation Findings Soft Tissue Tightness Muscle Guarding Tenderness Palpation Details tenderness on either side of the sacrum with muscle guarding, tenderness to palpation at the sacral base and PSIS bilaterally PT-OP-K Range of Motion Start: 08/18/17 20:48 Freq: Status: Active Protocol: Document 10/12/17 09:45 [facility] (Rec: 10/15/17 14:22 [facility] [email or web address]) Lumbar Spine Range of Motion Lumbar Spine Active Testing Position standing Flexion 80 Lateral Flexion Left 65 Lateral Flexion Right 55 Comments decreased overall tightness PT-OP-Q Treatments Start: 08/18/17 20:48 Freq: Status: Active Protocol: Document 02/28/18 10:58 [facility] (Rec: 02/28/18 11:06 [facility] [id number]) Manual Therapy Treatment Soft Tissue Mobilization 5 Body Location right upper trapezius and thoracic parapsinal release 4 Body Location left sided QL release Body Position Sidelying Comments with contract relax of the quadratus lumborum 3 Body Location left piriformis release 2 Body Location lumbar paraspinal MFR Body Position Prone Comments worked on releasing the left side of the lumbar paraspinals and Quadratus lumborum Joint Mobilizations 3 Joint thoracic spine mobilzations in prone Comments grade II for improved thoracic extension 2 Joint MET left anterior pelvic rotation Reps/Duration 5 PT-OP-R Modalities Start: 09/07/17 15:56 Freq: Status: Active Protocol: Document 11/02/17 17:24 [facility] (Rec: 11/02/17 17:30 [facility] [email or web address]) Ultrasound Therapy Treatment right upper trapexius Treatment Duration (minutes) 8 Patient Position Sitting Coupling Medium Ultrasound Gel Applicator Size (cm2) 5 Frequency Setting (mHz) 1 Mode Setting Continuous Duty Cycle 100% Intensity Setting (w/cm2) 1.5 PT-OP-T Assessment and Plan Start: 08/18/17 20:48 Freq: Status: Active Protocol: Document 02/28/18 10:58 [facility] (Rec: 02/28/18 11:06 [facility] [id number]) Physical Therapy Assessment Progress Towards Goals Progress Towards Goals Progressing Toward Goals Progress Comments Nasra Neff continues to do well with her stretches and exercise routine at home. She is doing PT intermittently when needed for pelvic related pain due to her scoliosis. She tends to do a good maintence program and then will have a incident where her pelvis will slip out of alignment and this will cause pain. She responds well to manual therapy techniques as needed Assessment Summary Assessment Nini is doing much better overall with her home exercise program of stertching and stabilization as well as her pool program. She tends to do well for a while and will then need to have her low back and pelvis worked on again for alignment. She would like to continue PT as needed for her low back and pelvis Physical Therapy Plan Frequency and Duration Frequency of Treatment 2x/Week Duration of Treatment 8 weeks Plan of Care Start Date 02/01/18 Plan of Care End Date 04/24/18 Therapeutic Interventions Therapeutic Interventions Home Exercise Program Joint Mobilizations Manual Therapy Neuromuscular Re-education Patient/Caregiver Education Self-Care/Home Management Therapeutic Exercises Modalities Ultrasound Next Visit Focus/Plan Next Note Type Treatment Note Next Visit Plan recheck pelvic alignment again next visit
--- NOTE | 2018-03-21 10:08 | PT.OTN ---
Current Diagnoses Dorsalgia, unspecified (03/20/18) Physical Therapy Treatment Note PT-OP-A Visit Information Start: 08/18/17 20:48 Freq: Status: Active Protocol: Document 03/20/18 15:15 [facility] (Rec: 03/21/18 10:05 [facility] [email or web address]) Out-Patient Physical Therapy Visit Information Visit Information Visit Type Treatment Note Visit Start Time 15:15 Visit Stop Time 16:00 Total Visit Minutes 45 Visit Number 2 Number of TECHNICAL BUSINESS SYSTEMS ANALYST Visits 0 Evaluation Information Evaluation Date 08/17/17 PT-OP-B Current Condition Start: 08/18/17 20:48 Freq: Status: Active Protocol: Document 08/17/17 13:00 [facility] (Rec: 08/18/17 21:05 [facility] [email or web address]) Current Condition History of Current Condition Onset Date recent onset of sacral/LBP 3 weeks ago Current Complaints alternating left and right sided sacral pain History of Current Condition narsa 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 She was doing well with her home stabilization program and aquatic exercise but recently flared her sacrum and SI joint after doing a abdominal exercise. She has been complaining of SI joint pain since Prior Functional Status Baseline Function- ADL's Independent Baseline Function- Mobility Independent Current Functional Impairments (Reported) Functional Limitations- ADL's limited with activities that require bending and lifting Functional Limitations- Mobility/Gait pain with walking greater than 1 mile PT-OP-C Subjective Start: 08/18/17 20:48 Freq: Status: Active Protocol: Document 03/20/18 15:15 [facility] (Rec: 03/21/18 10:05 [facility] [email or web address]) OP-PT Subjective Patient Comments Patient Comments Has been trying to swim as much as she can and do her exercises. Noticed tightness in the left sacral region and upper trapezius that started a few days ago PT-OP-F Manual Assessment Start: 08/18/17 20:48 Freq: Status: Active Protocol: Document 08/17/17 13:00 [facility] (Rec: 08/18/17 21:05 [facility] [email or web address]) Manual Assessments Soft Tissue Assessment Soft Tissue Mobility Assessment tightness in the piriformis muscle left greater than right Joint Mobility Assessment Joint Mobility Assessment + ASLR test for right SI instability and sacrum is rotated to the right PT-OP-J Posture/Palpation/Skin Start: 08/18/17 20:48 Freq: Status: Active Protocol: Document 08/17/17 13:00 [facility] (Rec: 08/18/17 21:05 [facility] [email or web address]) Palpation Assessment Location One Palpation Location PSIS and sacral NELY. saral base Palpation Findings Soft Tissue Tightness Muscle Guarding Tenderness Palpation Details tenderness on either side of the sacrum with muscle guarding, tenderness to palpation at the sacral base and PSIS bilaterally PT-OP-K Range of Motion Start: 08/18/17 20:48 Freq: Status: Active Protocol: Document 10/12/17 09:45 [facility] (Rec: 10/15/17 14:22 [facility] [email or web address]) Lumbar Spine Range of Motion Lumbar Spine Active Testing Position standing Flexion 80 Lateral Flexion Left 65 Lateral Flexion Right 55 Comments decreased overall tightness PT-OP-Q Treatments Start: 08/18/17 20:48 Freq: Status: Active Protocol: Document 03/21/18 09:57 [facility] (Rec: 03/21/18 10:05 [facility] [email or web address]) Manual Therapy Treatment Soft Tissue Mobilization 3 Body Location left piriformis release 2 Body Location lumbar paraspinal MFR Body Position Prone Comments worked on releasing the left side of the lumbar paraspinals and Quadratus lumborum 1 Body Location manual cervical spine stretching and ROM Body Position Supine Comments scalene and upper trapezius stretching Joint Mobilizations 3 Joint thoracic spine mobilzations in prone Comments grade II for improved thoracic extension PT-OP-R Modalities Start: 09/07/17 15:56 Freq: Status: Active Protocol: Document 11/02/17 17:24 [facility] (Rec: 11/02/17 17:30 [facility] [email or web address]) Ultrasound Therapy Treatment right upper trapexius Treatment Duration (minutes) 8 Patient Position Sitting Coupling Medium Ultrasound Gel Applicator Size (cm2) 5 Frequency Setting (mHz) 1 Mode Setting Continuous Duty Cycle 100% Intensity Setting (w/cm2) 1.5 PT-OP-T Assessment and Plan Start: 08/18/17 20:48 Freq: Status: Active Protocol: Document 03/20/18 15:15 [facility] (Rec: 03/21/18 10:05 [facility] [email or web address]) Physical Therapy Assessment Assessment Summary Assessment worked on cervical spine mobility today as well as releasing tightness in the low back. Nasra Neff would benefit from returning to postural exercises with theraband as she is tight in her shoulders today. Physical Therapy Plan Next Visit Focus/Plan Next Note Type Treatment Note Next Visit Plan begin with postural exercises next visit including shoulder ER
--- NOTE | 2018-03-22 15:10 | PT.OTN ---
Current Diagnoses Dorsalgia, unspecified (03/22/18) Physical Therapy Treatment Note PT-OP-A Visit Information Start: 08/18/17 20:48 Freq: Status: Active Protocol: Document 03/22/18 15:05 [facility] (Rec: 03/22/18 15:10 [facility] [email or web address]) Out-Patient Physical Therapy Visit Information Visit Information Visit Type Treatment Note Visit Start Time 13:45 Visit Stop Time 14:30 Total Visit Minutes 45 Visit Number 3 Number of BOARDING HOUSE COOK Visits 0 Evaluation Information Evaluation Date 08/17/17 PT-OP-B Current Condition Start: 08/18/17 20:48 Freq: Status: Active Protocol: Document 08/17/17 13:00 [facility] (Rec: 08/18/17 21:05 [facility] [email or web address]) Current Condition History of Current Condition Onset Date recent onset of sacral/LBP 3 weeks ago Current Complaints alternating left and right sided sacral pain History of Current Condition nasra 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 She was doing well with her home stabilization program and aquatic exercise but recently flared her sacrum and SI joint after doing a abdominal exercise. She has been complaining of SI joint pain since Prior Functional Status Baseline Function- ADL's Independent Baseline Function- Mobility Independent Current Functional Impairments (Reported) Functional Limitations- ADL's limited with activities that require bending and lifting Functional Limitations- Mobility/Gait pain with walking greater than 1 mile PT-OP-C Subjective Start: 08/18/17 20:48 Freq: Status: Active Protocol: Document 03/22/18 15:05 [facility] (Rec: 03/22/18 15:10 [facility] [email or web address]) OP-PT Subjective Patient Comments Patient Comments neck was sore after seeing the interior design program chair having to hold her head in a certain position PT-OP-F Manual Assessment Start: 08/18/17 20:48 Freq: Status: Active Protocol: Document 08/17/17 13:00 [facility] (Rec: 08/18/17 21:05 [facility] [email or web address]) Manual Assessments Soft Tissue Assessment Soft Tissue Mobility Assessment tightness in the piriformis muscle left greater than right Joint Mobility Assessment Joint Mobility Assessment + ASLR test for right SI instability and sacrum is rotated to the right PT-OP-J Posture/Palpation/Skin Start: 08/18/17 20:48 Freq: Status: Active Protocol: Document 08/17/17 13:00 [facility] (Rec: 08/18/17 21:05 [facility] [email or web address]) Palpation Assessment Location One Palpation Location PSIS and sacral NELY. saral base Palpation Findings Soft Tissue Tightness Muscle Guarding Tenderness Palpation Details tenderness on either side of the sacrum with muscle guarding, tenderness to palpation at the sacral base and PSIS bilaterally PT-OP-K Range of Motion Start: 08/18/17 20:48 Freq: Status: Active Protocol: Document 10/12/17 09:45 [facility] (Rec: 10/15/17 14:22 [facility] [email or web address]) Lumbar Spine Range of Motion Lumbar Spine Active Testing Position standing Flexion 80 Lateral Flexion Left 65 Lateral Flexion Right 55 Comments decreased overall tightness PT-OP-Q Treatments Start: 08/18/17 20:48 Freq: Status: Active Protocol: Document 03/22/18 15:05 [facility] (Rec: 03/22/18 15:10 [facility] [email or web address]) Therapeutic Exercises Sitting Exercises 1 Sitting Exercise Name seated levator scapula stretch Reps/Minutes hold 30 sec B Standing Exercises 3 Standing Exercise Name shoulder ER Reps/Minutes 3 x 10 2 Standing Exercise Name standinghorizontal abduction Equipment Used level 1 theraband Reps/Minutes 2 x 10 reps 1 Standing Exercise Name theraband rows, lat pull down and ER Equipment Used lev 1 theraband Reps/Minutes 3 sets of 10 each Manual Therapy Treatment Soft Tissue Mobilization 2 Body Location lumbar paraspinal MFR Body Position Prone Comments worked on releasing the left side of the lumbar paraspinals and Quadratus lumborum 1 Body Location manual cervical spine stretching and ROM Body Position Supine Comments scalene and upper trapezius stretching PT-OP-R Modalities Start: 09/07/17 15:56 Freq: Status: Active Protocol: Document 11/02/17 17:24 [facility] (Rec: 11/02/17 17:30 [facility] [email or web address]) Ultrasound Therapy Treatment right upper trapexius Treatment Duration (minutes) 8 Patient Position Sitting Coupling Medium Ultrasound Gel Applicator Size (cm2) 5 Frequency Setting (mHz) 1 Mode Setting Continuous Duty Cycle 100% Intensity Setting (w/cm2) 1.5 PT-OP-T Assessment and Plan Start: 08/18/17 20:48 Freq: Status: Active Protocol: Document 03/22/18 15:05 [facility] (Rec: 03/22/18 15:10 [facility] [email or web address]) Physical Therapy Assessment Assessment Summary Assessment added in postural exercises for the rotator cuff and began increasing cervical stretches Physical Therapy Plan Frequency and Duration Frequency of Treatment 2x/Week Duration of Treatment 8 weeks Plan of Care Start Date 02/01/18 Plan of Care End Date 04/24/18 Therapeutic Interventions Therapeutic Interventions Home Exercise Program Joint Mobilizations Manual Therapy Neuromuscular Re-education Patient/Caregiver Education Self-Care/Home Management Therapeutic Exercises Modalities Ultrasound Next Visit Focus/Plan Next Note Type Treatment Note Next Visit Plan review cervical stretches and postural strengthening next visit
--- NOTE | 2018-03-29 16:56 | PT.OTN ---
Current Diagnoses Dorsalgia, unspecified (03/29/18) Physical Therapy Treatment Note PT-OP-A Visit Information Start: 08/18/17 20:48 Freq: Status: Active Protocol: Document 03/27/18 16:52 [facility] (Rec: 03/29/18 16:56 [facility] [email or web address]) Out-Patient Physical Therapy Visit Information Visit Information Visit Type Treatment Note Visit Start Time 13:45 Visit Stop Time 14:30 Total Visit Minutes 45 Visit Number 4 Number of AIR COMPRESSOR OPERATOR Visits 0 PT-OP-B Current Condition Start: 08/18/17 20:48 Freq: Status: Active Protocol: Document 08/17/17 13:00 [facility] (Rec: 08/18/17 21:05 [facility] [email or web address]) Current Condition History of Current Condition Onset Date recent onset of sacral/LBP 3 weeks ago Current Complaints alternating left and right sided sacral pain History of Current Condition nasra 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 She was doing well with her home stabilization program and aquatic exercise but recently flared her sacrum and SI joint after doing a abdominal exercise. She has been complaining of SI joint pain since Prior Functional Status Baseline Function- ADL's Independent Baseline Function- Mobility Independent Current Functional Impairments (Reported) Functional Limitations- ADL's limited with activities that require bending and lifting Functional Limitations- Mobility/Gait pain with walking greater than 1 mile PT-OP-C Subjective Start: 08/18/17 20:48 Freq: Status: Active Protocol: Document 03/27/18 16:52 [facility] (Rec: 03/29/18 16:56 [facility] [email or web address]) OP-PT Subjective Patient Comments Patient Comments feeling c/o symptoms left sacral region, trying to do all her exercises PT-OP-F Manual Assessment Start: 08/18/17 20:48 Freq: Status: Active Protocol: Document 08/17/17 13:00 [facility] (Rec: 08/18/17 21:05 [facility] [email or web address]) Manual Assessments Soft Tissue Assessment Soft Tissue Mobility Assessment tightness in the piriformis muscle left greater than right Joint Mobility Assessment Joint Mobility Assessment + ASLR test for right SI instability and sacrum is rotated to the right PT-OP-J Posture/Palpation/Skin Start: 08/18/17 20:48 Freq: Status: Active Protocol: Document 08/17/17 13:00 [facility] (Rec: 08/18/17 21:05 [facility] [email or web address]) Palpation Assessment Location One Palpation Location PSIS and sacral NELY. saral base Palpation Findings Soft Tissue Tightness Muscle Guarding Tenderness Palpation Details tenderness on either side of the sacrum with muscle guarding, tenderness to palpation at the sacral base and PSIS bilaterally PT-OP-K Range of Motion Start: 08/18/17 20:48 Freq: Status: Active Protocol: Document 10/12/17 09:45 [facility] (Rec: 10/15/17 14:22 [facility] [email or web address]) Lumbar Spine Range of Motion Lumbar Spine Active Testing Position standing Flexion 80 Lateral Flexion Left 65 Lateral Flexion Right 55 Comments decreased overall tightness PT-OP-Q Treatments Start: 08/18/17 20:48 Freq: Status: Active Protocol: Document 03/27/18 16:52 [facility] (Rec: 03/29/18 16:56 [facility] [email or web address]) Therapeutic Exercises Standing Exercises 3 Standing Exercise Name shoulder ER Reps/Minutes 3 x 10 2 Standing Exercise Name standinghorizontal abduction Equipment Used level 1 theraband Reps/Minutes 2 x 10 reps 1 Standing Exercise Name theraband rows, lat pull down and ER Equipment Used lev 1 theraband Reps/Minutes 3 sets of 10 each Manual Therapy Treatment Soft Tissue Mobilization 4 Body Location left sided QL release Body Position Sidelying Comments with contract relax of the quadratus lumborum 3 Body Location left piriformis release 2 Body Location lumbar paraspinal MFR Body Position Prone Comments worked on releasing the left side of the lumbar paraspinals and Quadratus lumborum Joint Mobilizations 3 Joint thoracic spine mobilzations in prone Comments grade II for improved thoracic extension PT-OP-R Modalities Start: 09/07/17 15:56 Freq: Status: Active Protocol: Document 11/02/17 17:24 [facility] (Rec: 11/02/17 17:30 [facility] [email or web address]) Ultrasound Therapy Treatment right upper trapexius Treatment Duration (minutes) 8 Patient Position Sitting Coupling Medium Ultrasound Gel Applicator Size (cm2) 5 Frequency Setting (mHz) 1 Mode Setting Continuous Duty Cycle 100% Intensity Setting (w/cm2) 1.5 PT-OP-T Assessment and Plan Start: 08/18/17 20:48 Freq: Status: Active Protocol: Document 03/27/18 16:52 [facility] (Rec: 03/29/18 16:56 [facility] [email or web address]) Physical Therapy Assessment Assessment Summary Assessment good tolerance for rotator cuff and scapula stabilization Physical Therapy Plan Frequency and Duration Frequency of Treatment 2x/Week Duration of Treatment 8 weeks Plan of Care Start Date 02/01/18 Plan of Care End Date 04/24/18 Therapeutic Interventions Therapeutic Interventions Home Exercise Program Joint Mobilizations Manual Therapy Neuromuscular Re-education Patient/Caregiver Education Self-Care/Home Management Therapeutic Exercises Modalities Ultrasound Next Visit Focus/Plan Next Note Type Treatment Note Next Visit Plan continue rotator cuff and postural strengthening as well as manual therapy techniques for pain
--- NOTE | 2018-03-29 17:03 | PT.OTN ---
Current Diagnoses Dorsalgia, unspecified (03/29/18) Physical Therapy Treatment Note PT-OP-A Visit Information Start: 08/18/17 20:48 Freq: Status: Active Protocol: Document 03/29/18 16:59 [facility] (Rec: 03/29/18 17:03 [facility] [email or web address]) Out-Patient Physical Therapy Visit Information Visit Information Visit Type Treatment Note Visit Start Time 13:45 Visit Stop Time 14:30 Total Visit Minutes 45 Visit Number 5 Number of BOILERMAKER WELDER Visits 0 PT-OP-B Current Condition Start: 08/18/17 20:48 Freq: Status: Active Protocol: Document 08/17/17 13:00 [facility] (Rec: 08/18/17 21:05 [facility] [email or web address]) Current Condition History of Current Condition Onset Date recent onset of sacral/LBP 3 weeks ago Current Complaints alternating left and right sided sacral pain History of Current Condition nasra 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 She was doing well with her home stabilization program and aquatic exercise but recently flared her sacrum and SI joint after doing a abdominal exercise. She has been complaining of SI joint pain since Prior Functional Status Baseline Function- ADL's Independent Baseline Function- Mobility Independent Current Functional Impairments (Reported) Functional Limitations- ADL's limited with activities that require bending and lifting Functional Limitations- Mobility/Gait pain with walking greater than 1 mile PT-OP-C Subjective Start: 08/18/17 20:48 Freq: Status: Active Protocol: Document 03/29/18 16:59 [facility] (Rec: 03/29/18 17:03 [facility] [email or web address]) OP-PT Subjective Patient Comments Patient Comments working on her postural exercises and went swimming today. Still feels left sacral tightness at times PT-OP-F Manual Assessment Start: 08/18/17 20:48 Freq: Status: Active Protocol: Document 08/17/17 13:00 [facility] (Rec: 08/18/17 21:05 [facility] [email or web address]) Manual Assessments Soft Tissue Assessment Soft Tissue Mobility Assessment tightness in the piriformis muscle left greater than right Joint Mobility Assessment Joint Mobility Assessment + ASLR test for right SI instability and sacrum is rotated to the right PT-OP-J Posture/Palpation/Skin Start: 08/18/17 20:48 Freq: Status: Active Protocol: Document 08/17/17 13:00 [facility] (Rec: 08/18/17 21:05 [facility] [email or web address]) Palpation Assessment Location One Palpation Location PSIS and sacral NELY. saral base Palpation Findings Soft Tissue Tightness Muscle Guarding Tenderness Palpation Details tenderness on either side of the sacrum with muscle guarding, tenderness to palpation at the sacral base and PSIS bilaterally PT-OP-K Range of Motion Start: 08/18/17 20:48 Freq: Status: Active Protocol: Document 10/12/17 09:45 [facility] (Rec: 10/15/17 14:22 [facility] [email or web address]) Lumbar Spine Range of Motion Lumbar Spine Active Testing Position standing Flexion 80 Lateral Flexion Left 65 Lateral Flexion Right 55 Comments decreased overall tightness PT-OP-Q Treatments Start: 08/18/17 20:48 Freq: Status: Active Protocol: Document 03/29/18 16:59 [facility] (Rec: 03/29/18 17:03 [facility] [email or web address]) Therapeutic Exercises Other Exercises 4 Other Exercise Name aiden pose 3 Other Exercise Name quadraped sidebends 2 Other Exercise Name supine sidebending stretch 1 Other Exercise Name cat cow Manual Therapy Treatment Soft Tissue Mobilization 3 Body Location left piriformis release 2 Body Location lumbar paraspinal MFR Body Position Prone Comments worked on releasing the left side of the lumbar paraspinals and Quadratus lumborum Joint Mobilizations 3 Joint thoracic spine mobilzations in prone Comments grade II for improved thoracic extension PT-OP-R Modalities Start: 09/07/17 15:56 Freq: Status: Active Protocol: Document 11/02/17 17:24 [facility] (Rec: 11/02/17 17:30 [facility] [email or web address]) Ultrasound Therapy Treatment right upper trapexius Treatment Duration (minutes) 8 Patient Position Sitting Coupling Medium Ultrasound Gel Applicator Size (cm2) 5 Frequency Setting (mHz) 1 Mode Setting Continuous Duty Cycle 100% Intensity Setting (w/cm2) 1.5 PT-OP-T Assessment and Plan Start: 08/18/17 20:48 Freq: Status: Active Protocol: Document 03/29/18 16:59 [facility] (Rec: 03/29/18 17:03 [facility] [email or web address]) Physical Therapy Assessment Assessment Summary Assessment added in sidebending stretch in supine, worked on thoracic mobility as she tends to get very tight left side due to the scoliosis and this affects her sacrum Physical Therapy Plan Frequency and Duration Frequency of Treatment 2x/Week Duration of Treatment 8 weeks Plan of Care Start Date 02/01/18 Plan of Care End Date 04/24/18 Next Visit Focus/Plan Next Note Type Treatment Note Next Visit Plan continue with postural strengthening for scoliosis and manual therapy techniques
--- NOTE | 2018-04-05 13:21 | PT.OTN ---
Current Diagnoses Dorsalgia, unspecified (04/05/18) Physical Therapy Treatment Note PT-OP-A Visit Information Start: 08/18/17 20:48 Freq: Status: Active Protocol: Document 04/05/18 13:18 [facility] (Rec: 04/05/18 13:21 [facility] [email or web address]) Out-Patient Physical Therapy Visit Information Visit Information Visit Type Treatment Note Visit Start Time 11:15 Visit Stop Time 12:00 Total Visit Minutes 45 Visit Number 6 Number of COMMERCIAL AIRPLANE PILOT Visits 0 PT-OP-B Current Condition Start: 08/18/17 20:48 Freq: Status: Active Protocol: Document 08/17/17 13:00 [facility] (Rec: 08/18/17 21:05 [facility] [email or web address]) Current Condition History of Current Condition Onset Date recent onset of sacral/LBP 3 weeks ago Current Complaints alternating left and right sided sacral pain History of Current Condition nasra 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 She was doing well with her home stabilization program and aquatic exercise but recently flared her sacrum and SI joint after doing a abdominal exercise. She has been complaining of SI joint pain since Prior Functional Status Baseline Function- ADL's Independent Baseline Function- Mobility Independent Current Functional Impairments (Reported) Functional Limitations- ADL's limited with activities that require bending and lifting Functional Limitations- Mobility/Gait pain with walking greater than 1 mile PT-OP-C Subjective Start: 08/18/17 20:48 Freq: Status: Active Protocol: Document 04/05/18 13:18 [facility] (Rec: 04/05/18 13:21 [facility] [email or web address]) OP-PT Subjective Patient Comments Patient Comments Darius reports she has been walking in the snow. She has some sacral pain today PT-OP-F Manual Assessment Start: 08/18/17 20:48 Freq: Status: Active Protocol: Document 08/17/17 13:00 [facility] (Rec: 08/18/17 21:05 [facility] [email or web address]) Manual Assessments Soft Tissue Assessment Soft Tissue Mobility Assessment tightness in the piriformis muscle left greater than right Joint Mobility Assessment Joint Mobility Assessment + ASLR test for right SI instability and sacrum is rotated to the right PT-OP-J Posture/Palpation/Skin Start: 08/18/17 20:48 Freq: Status: Active Protocol: Document 08/17/17 13:00 [facility] (Rec: 08/18/17 21:05 [facility] [email or web address]) Palpation Assessment Location One Palpation Location PSIS and sacral NELY. saral base Palpation Findings Soft Tissue Tightness Muscle Guarding Tenderness Palpation Details tenderness on either side of the sacrum with muscle guarding, tenderness to palpation at the sacral base and PSIS bilaterally PT-OP-K Range of Motion Start: 08/18/17 20:48 Freq: Status: Active Protocol: Document 10/12/17 09:45 [facility] (Rec: 10/15/17 14:22 [facility] [email or web address]) Lumbar Spine Range of Motion Lumbar Spine Active Testing Position standing Flexion 80 Lateral Flexion Left 65 Lateral Flexion Right 55 Comments decreased overall tightness PT-OP-Q Treatments Start: 08/18/17 20:48 Freq: Status: Active Protocol: Document 04/05/18 13:18 [facility] (Rec: 04/05/18 13:21 [facility] [email or web address]) Therapeutic Exercises Standing Exercises 3 Standing Exercise Name shoulder ER Reps/Minutes 3 x 10 1 Standing Exercise Name theraband rows, lat pull down and ER Equipment Used lev 1 theraband Reps/Minutes 3 sets of 10 each Other Exercises 4 Other Exercise Name aiden pose 3 Other Exercise Name quadraped sidebends 2 Other Exercise Name supine sidebending stretch PT-OP-R Modalities Start: 09/07/17 15:56 Freq: Status: Active Protocol: Document 11/02/17 17:24 [facility] (Rec: 11/02/17 17:30 [facility] [email or web address]) Ultrasound Therapy Treatment right upper trapexius Treatment Duration (minutes) 8 Patient Position Sitting Coupling Medium Ultrasound Gel Applicator Size (cm2) 5 Frequency Setting (mHz) 1 Mode Setting Continuous Duty Cycle 100% Intensity Setting (w/cm2) 1.5 PT-OP-T Assessment and Plan Start: 08/18/17 20:48 Freq: Status: Active Protocol: Document 04/05/18 13:18 [facility] (Rec: 04/05/18 13:21 [facility] [email or web address]) Physical Therapy Assessment Assessment Summary Assessment worked on the sidebending stretch again today and gave cues to avoid shoulder pinching Physical Therapy Plan Frequency and Duration Frequency of Treatment 2x/Week Duration of Treatment 8 weeks Plan of Care Start Date 02/01/18 Plan of Care End Date 04/24/18 Therapeutic Interventions Therapeutic Interventions Home Exercise Program Joint Mobilizations Manual Therapy Neuromuscular Re-education Patient/Caregiver Education Self-Care/Home Management Therapeutic Exercises Modalities Ultrasound Next Visit Focus/Plan Next Note Type Treatment Note Next Visit Plan continue with postural strengthening for scoliosis and manual therapy techniques
--- NOTE | 2018-04-15 14:33 | PT.OTN ---
Current Diagnoses Dorsalgia, unspecified (04/12/18) Physical Therapy Treatment Note PT-OP-A Visit Information Start: 08/18/17 20:48 Freq: Status: Active Protocol: Document 04/12/18 11:15 [facility] (Rec: 04/15/18 14:33 [facility] [email or web address]) Out-Patient Physical Therapy Visit Information Visit Information Visit Type Treatment Note Visit Start Time 11:15 Visit Stop Time 12:00 Total Visit Minutes 45 Visit Number 7 Number of COOLING SYSTEM OPERATOR Visits 0 PT-OP-B Current Condition Start: 08/18/17 20:48 Freq: Status: Active Protocol: Document 08/17/17 13:00 [facility] (Rec: 08/18/17 21:05 [facility] [email or web address]) Current Condition History of Current Condition Onset Date recent onset of sacral/LBP 3 weeks ago Current Complaints alternating left and right sided sacral pain History of Current Condition nasra 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 She was doing well with her home stabilization program and aquatic exercise but recently flared her sacrum and SI joint after doing a abdominal exercise. She has been complaining of SI joint pain since Prior Functional Status Baseline Function- ADL's Independent Baseline Function- Mobility Independent Current Functional Impairments (Reported) Functional Limitations- ADL's limited with activities that require bending and lifting Functional Limitations- Mobility/Gait pain with walking greater than 1 mile PT-OP-C Subjective Start: 08/18/17 20:48 Freq: Status: Active Protocol: Document 04/12/18 11:15 [facility] (Rec: 04/15/18 14:33 [facility] [email or web address]) OP-PT Subjective Patient Comments Patient Comments Nasra Neff reports she has been working on her exercises and walking. She feels off with her pelvis today PT-OP-F Manual Assessment Start: 08/18/17 20:48 Freq: Status: Active Protocol: Document 08/17/17 13:00 [facility] (Rec: 08/18/17 21:05 [facility] [email or web address]) Manual Assessments Soft Tissue Assessment Soft Tissue Mobility Assessment tightness in the piriformis muscle left greater than right Joint Mobility Assessment Joint Mobility Assessment + ASLR test for right SI instability and sacrum is rotated to the right PT-OP-J Posture/Palpation/Skin Start: 08/18/17 20:48 Freq: Status: Active Protocol: Document 08/17/17 13:00 [facility] (Rec: 08/18/17 21:05 [facility] [email or web address]) Palpation Assessment Location One Palpation Location PSIS and sacral NELY. saral base Palpation Findings Soft Tissue Tightness Muscle Guarding Tenderness Palpation Details tenderness on either side of the sacrum with muscle guarding, tenderness to palpation at the sacral base and PSIS bilaterally PT-OP-K Range of Motion Start: 08/18/17 20:48 Freq: Status: Active Protocol: Document 10/12/17 09:45 [facility] (Rec: 10/15/17 14:22 [facility] [email or web address]) Lumbar Spine Range of Motion Lumbar Spine Active Testing Position standing Flexion 80 Lateral Flexion Left 65 Lateral Flexion Right 55 Comments decreased overall tightness PT-OP-Q Treatments Start: 08/18/17 20:48 Freq: Status: Active Protocol: Document 04/12/18 11:15 [facility] (Rec: 04/15/18 14:33 [facility] [email or web address]) Therapeutic Exercises Standing Exercises 3 Standing Exercise Name shoulder ER Reps/Minutes 3 x 10 2 Standing Exercise Name standinghorizontal abduction Equipment Used level 1 theraband Reps/Minutes 2 x 10 reps 1 Standing Exercise Name theraband rows, lat pull down and ER Equipment Used lev 1 theraband Reps/Minutes 3 sets of 10 each Manual Therapy Treatment Soft Tissue Mobilization 3 Body Location left piriformis release 2 Body Location lumbar paraspinal MFR Body Position Prone Comments worked on releasing the left side of the lumbar paraspinals and Quadratus lumborum Joint Mobilizations 3 Joint thoracic spine mobilzations in prone Comments grade II for improved thoracic extension 2 Joint MET for right anteriorly rotated illium PT-OP-R Modalities Start: 09/07/17 15:56 Freq: Status: Active Protocol: Document 11/02/17 17:24 [facility] (Rec: 11/02/17 17:30 [facility] [email or web address]) Ultrasound Therapy Treatment right upper trapexius Treatment Duration (minutes) 8 Patient Position Sitting Coupling Medium Ultrasound Gel Applicator Size (cm2) 5 Frequency Setting (mHz) 1 Mode Setting Continuous Duty Cycle 100% Intensity Setting (w/cm2) 1.5 PT-OP-T Assessment and Plan Start: 08/18/17 20:48 Freq: Status: Active Protocol: Document 04/12/18 11:15 [facility] (Rec: 04/15/18 14:33 [facility] [email or web address]) Physical Therapy Assessment Assessment Summary Assessment sidebending stretchng working well for Nasra Neff, left lateral throacic spine tightness Physical Therapy Plan Frequency and Duration Frequency of Treatment 2x/Week Duration of Treatment 8 weeks Plan of Care Start Date 02/01/18 Plan of Care End Date 04/24/18 Therapeutic Interventions Therapeutic Interventions Home Exercise Program Joint Mobilizations Manual Therapy Neuromuscular Re-education Patient/Caregiver Education Self-Care/Home Management Therapeutic Exercises Modalities Ultrasound Next Visit Focus/Plan Next Note Type Treatment Note Next Visit Plan continue with postural strengthening for scoliosis and manual therapy techniques
--- NOTE | 2018-04-26 14:29 | PT.OTN ---
Current Diagnoses Dorsalgia, unspecified (04/17/18) Physical Therapy Treatment Note PT-OP-A Visit Information Start: 08/18/17 20:48 Freq: Status: Active Protocol: Document 04/17/18 14:17 [facility] (Rec: 04/26/18 14:29 [facility] [email or web address]) Out-Patient Physical Therapy Visit Information Visit Information Visit Type Treatment Note Visit Start Time 10:30 Visit Stop Time 11:15 Total Visit Minutes 45 Visit Number 8 Number of GLOBAL POSITION SYSTEM TECHNICIAN Visits 0 Evaluation Information Evaluation Date 08/17/17 PT-OP-B Current Condition Start: 08/18/17 20:48 Freq: Status: Active Protocol: Document 08/17/17 13:00 [facility] (Rec: 08/18/17 21:05 [facility] [email or web address]) Current Condition History of Current Condition Onset Date recent onset of sacral/LBP 3 weeks ago Current Complaints alternating left and right sided sacral pain History of Current Condition nasra 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 She was doing well with her home stabilization program and aquatic exercise but recently flared her sacrum and SI joint after doing a abdominal exercise. She has been complaining of SI joint pain since Prior Functional Status Baseline Function- ADL's Independent Baseline Function- Mobility Independent Current Functional Impairments (Reported) Functional Limitations- ADL's limited with activities that require bending and lifting Functional Limitations- Mobility/Gait pain with walking greater than 1 mile PT-OP-C Subjective Start: 08/18/17 20:48 Freq: Status: Active Protocol: Document 04/17/18 14:17 [facility] (Rec: 04/26/18 14:29 [facility] [email or web address]) OP-PT Subjective Patient Comments Patient Comments Doing better overall, still feels some tightness in her sacral region PT-OP-F Manual Assessment Start: 08/18/17 20:48 Freq: Status: Active Protocol: Document 08/17/17 13:00 [facility] (Rec: 08/18/17 21:05 [facility] [email or web address]) Manual Assessments Soft Tissue Assessment Soft Tissue Mobility Assessment tightness in the piriformis muscle left greater than right Joint Mobility Assessment Joint Mobility Assessment + ASLR test for right SI instability and sacrum is rotated to the right PT-OP-J Posture/Palpation/Skin Start: 08/18/17 20:48 Freq: Status: Active Protocol: Document 08/17/17 13:00 [facility] (Rec: 08/18/17 21:05 [facility] [email or web address]) Palpation Assessment Location One Palpation Location PSIS and sacral NELY. saral base Palpation Findings Soft Tissue Tightness Muscle Guarding Tenderness Palpation Details tenderness on either side of the sacrum with muscle guarding, tenderness to palpation at the sacral base and PSIS bilaterally PT-OP-K Range of Motion Start: 08/18/17 20:48 Freq: Status: Active Protocol: Document 10/12/17 09:45 [facility] (Rec: 10/15/17 14:22 [facility] [email or web address]) Lumbar Spine Range of Motion Lumbar Spine Active Testing Position standing Flexion 80 Lateral Flexion Left 65 Lateral Flexion Right 55 Comments decreased overall tightness PT-OP-Q Treatments Start: 08/18/17 20:48 Freq: Status: Active Protocol: Document 04/17/18 14:17 [facility] (Rec: 04/26/18 14:29 [facility] [email or web address]) Therapeutic Exercises Standing Exercises 3 Standing Exercise Name shoulder ER Reps/Minutes 3 x 10 2 Standing Exercise Name standinghorizontal abduction Equipment Used level 1 theraband Reps/Minutes 2 x 10 reps 1 Standing Exercise Name theraband rows, lat pull down and ER Equipment Used lev 1 theraband Reps/Minutes 3 sets of 10 each Manual Therapy Treatment Soft Tissue Mobilization 3 Body Location left piriformis release 2 Body Location lumbar paraspinal MFR Body Position Prone Comments worked on releasing the left side of the lumbar paraspinals and Quadratus lumborum PT-OP-R Modalities Start: 09/07/17 15:56 Freq: Status: Active Protocol: Document 11/02/17 17:24 [facility] (Rec: 11/02/17 17:30 [facility] [email or web address]) Ultrasound Therapy Treatment right upper trapexius Treatment Duration (minutes) 8 Patient Position Sitting Coupling Medium Ultrasound Gel Applicator Size (cm2) 5 Frequency Setting (mHz) 1 Mode Setting Continuous Duty Cycle 100% Intensity Setting (w/cm2) 1.5 PT-OP-T Assessment and Plan Start: 08/18/17 20:48 Freq: Status: Active Protocol: Document 04/17/18 14:17 [facility] (Rec: 04/26/18 14:29 [facility] [email or web address]) Physical Therapy Assessment Assessment Summary Assessment improving tolerance for postural strengthening, decreased thoracic tightness today Physical Therapy Plan Frequency and Duration Frequency of Treatment 2x/Week Duration of Treatment 8 weeks Plan of Care Start Date 02/01/18 Plan of Care End Date 04/24/18 Therapeutic Interventions Therapeutic Interventions Home Exercise Program Joint Mobilizations Manual Therapy Neuromuscular Re-education Patient/Caregiver Education Self-Care/Home Management Therapeutic Exercises Modalities Ultrasound Next Visit Focus/Plan Next Note Type Treatment Note Next Visit Plan continue with postural strengthening for scoliosis and manual therapy techniques
--- NOTE | 2018-07-31 13:29 | PT.OTRE ---
Current Diagnoses Dorsalgia, unspecified (07/31/18) Past Medical History (Last Reviewed 09/27/17 @ 11:46 by Sonal Sanchez LPN) Hyperlipidemia (Chronic) Gastroesophageal reflux disease (Chronic 11/26/10) Acquired hypothyroidism (Chronic 2011) Osteopenia (Chronic 2011) Anemia (Chronic 1986) CTS (carpal tunnel syndrome) (Chronic 1989) Chronic back pain (Chronic 1986) Diverticular disease (Chronic 2005) Lumbar spine pain (Chronic) Scoliosis (Chronic 1986) Abnormal Pap smear of cervix (Resolved 1988) Chicken pox (Resolved 1953) Colitis (Resolved 1971) HPV (human papilloma virus) infection (Resolved 2007) Measles (Resolved 1953) Surgical History (Last Reviewed 09/27/17 @ 11:46 by Sonal Sanchez LPN) Status post bunionectomy (Chronic 2013) Anesthesia (Resolved) History of left oophorectomy (Resolved 1988) Status post bunionectomy (Resolved 2007) Status post tonsillectomy and adenoidectomy (Resolved 1953) History of bilateral salpingo-oophorectomy (BSO) Provider Visit Care Team Role Provider Type Lan Gomes MD Attending Provider Physician Family Provider Primary Care Provider Specialty: Family Practice Address: [address] [place] [address] Email: [email or web address] Physical Therapy Re-Evaluation PT-OP-A Visit Information Start: 08/18/17 20:48 Freq: Status: Active Protocol: Document 07/26/18 11:15 [facility] (Rec: 07/31/18 13:29 [facility] [email or web address]) Out-Patient Physical Therapy Visit Information Visit Information Visit Type Re-Evaluation Visit Start Time 11:15 Visit Stop Time 12:30 Total Visit Minutes 45 Visit Number 1 Number of RIVET BUCKER Visits 0 Evaluation Information Evaluation Date 07/26/18 PT-OP-B Current Condition Start: 08/18/17 20:48 Freq: Status: Active Protocol: Document 07/26/18 11:15 [facility] (Rec: 07/31/18 13:29 [facility] [email or web address]) Current Condition History of Current Condition Onset Date recent onset of sacral/LBP 3 weeks ago Current Complaints alternating left and right sided sacral pain History of Current Condition nasra Pham 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 She was doing well with her home stabilization program and aquatic exercise but recently flared her sacrum and SI joint after doing a abdominal exercise. She has been complaining of SI joint pain since PT-OP-C Subjective Start: 08/18/17 20:48 Freq: Status: Active Protocol: Document 07/26/18 11:15 [facility] (Rec: 07/31/18 13:29 [facility] [email or web address]) OP-PT Subjective Patient Comments Patient Comments Nasra pham returns to PT today and reports she has been working on all of her exercises and the pool. She is feeling tight again in the sacral region bilaterally and ITB regions PT-OP-F Manual Assessment Start: 08/18/17 20:48 Freq: Status: Active Protocol: Document 07/26/18 11:15 [facility] (Rec: 07/31/18 13:29 [facility] [email or web address]) Manual Assessments Soft Tissue Assessment Soft Tissue Mobility Assessment tightness in the piriformis muscle left greater than right , tightness Left ITB Joint Mobility Assessment Joint Mobility Assessment + ASLR test for right SI instability and sacrum is rotated to the right with scoliosis Nasra Enrique is rotated to the left in her upper thoracic spine , right shoulder is forward PT-OP-J Posture/Palpation/Skin Start: 08/18/17 20:48 Freq: Status: Active Protocol: Document 07/26/18 11:15 [facility] (Rec: 07/31/18 13:29 [facility] [email or web address]) Posture Evaluation Position Standing Evaluation View Posterior Shoulder Posture (R) Rounded (R) Forward Palpation Assessment Location One Palpation Location PSIS and sacral NELY. saral base Palpation Findings Soft Tissue Tightness Muscle Guarding Tenderness Palpation Details tenderness on either side of the sacrum with muscle guarding, tenderness to palpation at the sacral base and PSIS bilaterally PT-OP-K Range of Motion Start: 08/18/17 20:48 Freq: Status: Active Protocol: Document 10/12/17 09:45 [facility] (Rec: 10/15/17 14:22 [facility] [email or web address]) Lumbar Spine Range of Motion Lumbar Spine Active Testing Position standing Flexion 80 Lateral Flexion Left 65 Lateral Flexion Right 55 Comments decreased overall tightness PT-OP-Q Treatments Start: 08/18/17 20:48 Freq: Status: Active Protocol: Document 07/26/18 11:15 [facility] (Rec: 07/31/18 13:29 [facility] [email or web address]) Manual Therapy Treatment Joint Mobilizations 3 Joint thoracic spine mobilzations in prone Comments grade II for improved thoracic extension 1 Joint MET for sacral counter nutation Manual Techniques 1 Type manual ITB release and hamstring stretching PT-OP-R Modalities Start: 09/07/17 15:56 Freq: Status: Active Protocol: Document 11/02/17 17:24 [facility] (Rec: 11/02/17 17:30 [facility] [email or web address]) Ultrasound Therapy Treatment right upper trapexius Treatment Duration (minutes) 8 Patient Position Sitting Coupling Medium Ultrasound Gel Applicator Size (cm2) 5 Frequency Setting (mHz) 1 Mode Setting Continuous Duty Cycle 100% Intensity Setting (w/cm2) 1.5 PT-OP-T Assessment and Plan Start: 08/18/17 20:48 Freq: Status: Active Protocol: Document 07/26/18 11:15 [facility] (Rec: 07/31/18 13:29 [facility] [email or web address]) Physical Therapy Assessment Goals Four Impairment decreased core stabilization Environmental Emergencies Assistant Goal (LTG) Nasra Pham's core program for home is reviewed and she is properly performing her core stabilization exercises LTG Duration 8 weeks Three Impairment decreased lumbar spine ROM limited bending and lifting activities Jail Goal (LTG) Improve lumbar spine ROM to WFL for return to full function with ADL's include bending and lifting activities Two Impairment muscle imbalances of the piriformis creating a torque on the sacrum Jail Goal (LTG) improve flexibility of the piriformis on the left to reduce unequal pull on the sacrum One Impairment pain to palpation at the sacral borders due to sacral torsion Short Term Goal (STG) correct the sacral torsion with manual therapy techniques reducing pain at the sacrum Progress Towards Goals Progress Towards Goals Progressing Toward Goals Progress Comments Nasra Pham continues to do well with her stretches and exercise routine at home. She is doing PT intermittently when needed for pelvic related pain due to her scoliosis. She tends to do a good program at home and then will have a incident where her pelvis will slip out of alignment and this will cause pain. She responds well to manual therapy techniques as needed Assessment Summary Assessment Nasra Pham returns to PT today with sacral discomfort and ITB tightness on the left. She has been working on her stretches and swimming but notes recently a flare up of the sacral tightness has happened. Physical Therapy Plan Frequency and Duration Frequency of Treatment 2x/Week Duration of Treatment 8 weeks Plan of Care Start Date 07/26/18 Plan of Care End Date 09/20/18 Therapeutic Interventions Therapeutic Interventions Home Exercise Program Joint Mobilizations Manual Therapy Neuromuscular Re-education Patient/Caregiver Education Self-Care/Home Management Therapeutic Exercises Modalities Ultrasound Next Visit Focus/Plan Next Note Type Treatment Note Next Visit Plan work on shoulder ER on the left and upper thoracic rotation to the right
--- NOTE | 2018-07-31 13:30 | PT.OPPOC ---
Current Diagnoses Dorsalgia, unspecified (07/31/18) Provider Visit Care Team Role Provider Type Lan Gomes MD Attending Provider Physician Family Provider Primary Care Provider Specialty: Family Practice Address: [address] [place] [address], [facility] Email: [email or web address] Plan Of Care PT-OP-T Assessment and Plan Start: 08/18/17 20:48 Freq: Status: Active Protocol: Document 07/26/18 11:15 [facility] (Rec: 07/31/18 13:29 [facility] [email or web address]) Physical Therapy Assessment Goals Four Impairment decreased core stabilization Field Contact Technician Goal (LTG) Yaritza Neff's core program for home is reviewed and she is properly performing her core stabilization exercises LTG Duration 8 weeks Three Impairment decreased lumbar spine ROM limited bending and lifting activities Field Contact Technician Goal (LTG) Improve lumbar spine ROM to WFL for return to full function with ADL's include bending and lifting activities Two Impairment muscle imbalances of the piriformis creating a torque on the sacrum Nursing Home Goal (LTG) improve flexibility of the piriformis on the left to reduce unequal pull on the sacrum One Impairment pain to palpation at the sacral borders due to sacral torsion Short Term Goal (STG) correct the sacral torsion with manual therapy techniques reducing pain at the sacrum Progress Towards Goals Progress Towards Goals Progressing Toward Goals Progress Comments Yaritza Neff continues to do well with her stretches and exercise routine at home. She is doing PT intermittently when needed for pelvic related pain due to her scoliosis. She tends to do a good home program and then will have a incident where her pelvis will slip out of alignment and this will cause pain. She responds well to manual therapy techniques as needed Assessment Summary Assessment Yaritza Neff returns to PT today with sacral discomfort and ITB tightness on the left. She has been working on her stretches and swimming but notes recently a flare up of the sacral tightness has happened. Physical Therapy Plan Frequency and Duration Frequency of Treatment 2x/Week Duration of Treatment 8 weeks Plan of Care Start Date 07/26/18 Plan of Care End Date 09/20/18 Therapeutic Interventions Therapeutic Interventions Home Exercise Program Joint Mobilizations Manual Therapy Neuromuscular Re-education Patient/Caregiver Education Self-Care/Home Management Therapeutic Exercises Modalities Ultrasound Next Visit Focus/Plan Next Note Type Treatment Note Next Visit Plan work on shoulder ER on the left and upper thoracic rotation to the right Plan of Care Dates Plan of Care Start Date 07/26/18 Plan of Care End Date 09/20/18 Please Sign and Return: I have reviewed this Plan of Care and certify that the skilled therapy services above are required to meet the patient?s needs. Physician Signature Date Printed Name and Credentials Clinical Instructor Signature Printed Name and Credentials
--- NOTE | 2018-07-31 13:40 | PT.OTN ---
Current Diagnoses Dorsalgia, unspecified (07/31/18) Physical Therapy Treatment Note PT-OP-A Visit Information Start: 08/18/17 20:48 Freq: Status: Active Protocol: Document 07/31/18 13:32 [facility] (Rec: 07/31/18 13:40 [facility] [email or web address]) Out-Patient Physical Therapy Visit Information Visit Information Visit Type Treatment Note Visit Start Time 11:15 Visit Stop Time 12:30 Total Visit Minutes 45 Visit Number 2 Number of DIAMOND CLEANER Visits 0 PT-OP-B Current Condition Start: 08/18/17 20:48 Freq: Status: Active Protocol: Document 07/26/18 11:15 [facility] (Rec: 07/31/18 13:29 [facility] [email or web address]) Current Condition History of Current Condition Onset Date recent onset of sacral/LBP 3 weeks ago Current Complaints alternating left and right sided sacral pain History of Current Condition nasra 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 She was doing well with her home stabilization program and aquatic exercise but recently flared her sacrum and SI joint after doing a abdominal exercise. She has been complaining of SI joint pain since PT-OP-C Subjective Start: 08/18/17 20:48 Freq: Status: Active Protocol: Document 07/31/18 13:32 [facility] (Rec: 07/31/18 13:40 [facility] [email or web address]) OP-PT Subjective Patient Comments Patient Comments Nasra Neff states her right neck is hurting today. ITB doing better but still feeling the sacral symptoms PT-OP-F Manual Assessment Start: 08/18/17 20:48 Freq: Status: Active Protocol: Document 07/26/18 11:15 [facility] (Rec: 07/31/18 13:29 [facility] [email or web address]) Manual Assessments Soft Tissue Assessment Soft Tissue Mobility Assessment tightness in the piriformis muscle left greater than right , tightness Left ITB Joint Mobility Assessment Joint Mobility Assessment + ASLR test for right SI instability and sacrum is rotated to the right with scoliosis Nasra Enrique is rotated to the left in her upper thoracic spine , right shoulder is forward PT-OP-J Posture/Palpation/Skin Start: 08/18/17 20:48 Freq: Status: Active Protocol: Document 07/26/18 11:15 [facility] (Rec: 07/31/18 13:29 [facility] [email or web address]) Posture Evaluation Position Standing Evaluation View Posterior Shoulder Posture (R) Rounded (R) Forward Palpation Assessment Location One Palpation Location PSIS and sacral NELY. saral base Palpation Findings Soft Tissue Tightness Muscle Guarding Tenderness Palpation Details tenderness on either side of the sacrum with muscle guarding, tenderness to palpation at the sacral base and PSIS bilaterally PT-OP-K Range of Motion Start: 08/18/17 20:48 Freq: Status: Active Protocol: Document 10/12/17 09:45 [facility] (Rec: 10/15/17 14:22 [facility] [email or web address]) Lumbar Spine Range of Motion Lumbar Spine Active Testing Position standing Flexion 80 Lateral Flexion Left 65 Lateral Flexion Right 55 Comments decreased overall tightness PT-OP-Q Treatments Start: 08/18/17 20:48 Freq: Status: Active Protocol: Document 07/31/18 13:32 [facility] (Rec: 07/31/18 13:40 [facility] [email or web address]) Therapeutic Exercises Supine Exercises 5 Supine Exercise Name oblique axis stretch with lower trunk rotation 4 Supine Exercise Name Foam roll stretch 3 Supine Exercise Name supine ITB stretch with strap Standing Exercises 4 Standing Exercise Name standing SA wall press Reps/Minutes x 20 reps 3 Standing Exercise Name shoulder ER Reps/Minutes 3 x 10 2 Standing Exercise Name standinghorizontal abduction Equipment Used level 1 theraband Reps/Minutes 2 x 10 reps 1 Standing Exercise Name theraband rows, lat pull down and ER Equipment Used lev 1 theraband Reps/Minutes 3 sets of 10 each PT-OP-R Modalities Start: 09/07/17 15:56 Freq: Status: Active Protocol: Document 11/02/17 17:24 [facility] (Rec: 11/02/17 17:30 [facility] [email or web address]) Ultrasound Therapy Treatment right upper trapexius Treatment Duration (minutes) 8 Patient Position Sitting Coupling Medium Ultrasound Gel Applicator Size (cm2) 5 Frequency Setting (mHz) 1 Mode Setting Continuous Duty Cycle 100% Intensity Setting (w/cm2) 1.5 PT-OP-T Assessment and Plan Start: 08/18/17 20:48 Freq: Status: Active Protocol: Document 07/31/18 13:32 [facility] (Rec: 07/31/18 13:40 [facility] [email or web address]) Physical Therapy Assessment Assessment Summary Assessment Worked on right sided rotation and reviewed shoulder ER exercises and foam roll. Pt to work on right rotation as her right shoulder is pulled forward Physical Therapy Plan Frequency and Duration Frequency of Treatment 2x/Week Duration of Treatment 8 weeks Plan of Care Start Date 07/26/18 Plan of Care End Date 09/20/18 Next Visit Focus/Plan Next Note Type Treatment Note Next Visit Plan work on shoulder ER on the right and upper thoracic rotation to the right
--- NOTE | 2018-08-07 09:25 | PT.OTN ---
Current Diagnoses Dorsalgia, unspecified (08/02/18) Physical Therapy Treatment Note PT-OP-A Visit Information Start: 08/18/17 20:48 Freq: Status: Active Protocol: Document 08/02/18 11:15 [facility] (Rec: 08/07/18 09:25 [facility] [email or web address]) Out-Patient Physical Therapy Visit Information Visit Information Visit Type Treatment Note Visit Start Time 11:15 Visit Stop Time 12:00 Total Visit Minutes 45 Visit Number 3 Number of CANDLE EXTRUSION MACHINE OPERATOR Visits 0 PT-OP-B Current Condition Start: 08/18/17 20:48 Freq: Status: Active Protocol: Document 07/26/18 11:15 [facility] (Rec: 07/31/18 13:29 [facility] [email or web address]) Current Condition History of Current Condition Onset Date recent onset of sacral/LBP 3 weeks ago Current Complaints alternating left and right sided sacral pain History of Current Condition nasra 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 She was doing well with her home stabilization program and aquatic exercise but recently flared her sacrum and SI joint after doing a abdominal exercise. She has been complaining of SI joint pain since PT-OP-C Subjective Start: 08/18/17 20:48 Freq: Status: Active Protocol: Document 08/02/18 11:15 [facility] (Rec: 08/07/18 09:25 [facility] [email or web address]) OP-PT Subjective Patient Comments Patient Comments Nasra Neff has been working on her stretches and things are getting better again. She feels sacral symptoms today, tightness. PT-OP-F Manual Assessment Start: 08/18/17 20:48 Freq: Status: Active Protocol: Document 07/26/18 11:15 [facility] (Rec: 07/31/18 13:29 [facility] [email or web address]) Manual Assessments Soft Tissue Assessment Soft Tissue Mobility Assessment tightness in the piriformis muscle left greater than right , tightness Left ITB Joint Mobility Assessment Joint Mobility Assessment + ASLR test for right SI instability and sacrum is rotated to the right with scoliosis Nasra Enrique is rotated to the left in her upper thoracic spine , right shoulder is forward PT-OP-J Posture/Palpation/Skin Start: 08/18/17 20:48 Freq: Status: Active Protocol: Document 07/26/18 11:15 [facility] (Rec: 07/31/18 13:29 [facility] [email or web address]) Posture Evaluation Position Standing Evaluation View Posterior Shoulder Posture (R) Rounded (R) Forward Palpation Assessment Location One Palpation Location PSIS and sacral NELY. saral base Palpation Findings Soft Tissue Tightness Muscle Guarding Tenderness Palpation Details tenderness on either side of the sacrum with muscle guarding, tenderness to palpation at the sacral base and PSIS bilaterally PT-OP-K Range of Motion Start: 08/18/17 20:48 Freq: Status: Active Protocol: Document 10/12/17 09:45 [facility] (Rec: 10/15/17 14:22 [facility] [email or web address]) Lumbar Spine Range of Motion Lumbar Spine Active Testing Position standing Flexion 80 Lateral Flexion Left 65 Lateral Flexion Right 55 Comments decreased overall tightness PT-OP-Q Treatments Start: 08/18/17 20:48 Freq: Status: Active Protocol: Document 08/02/18 11:15 [facility] (Rec: 08/07/18 09:25 [facility] [email or web address]) Therapeutic Exercises Supine Exercises 5 Supine Exercise Name oblique axis stretch with lower trunk rotation 4 Supine Exercise Name Foam roll stretch 3 Supine Exercise Name supine ITB stretch with strap Standing Exercises 3 Standing Exercise Name shoulder ER Reps/Minutes 3 x 10 2 Standing Exercise Name standinghorizontal abduction Equipment Used level 1 theraband Reps/Minutes 2 x 10 reps 1 Standing Exercise Name theraband rows, lat pull down and ER Equipment Used lev 1 theraband Reps/Minutes 3 sets of 10 each Manual Therapy Treatment Soft Tissue Mobilization 3 Body Location left piriformis release 2 Body Location lumbar paraspinal MFR Body Position Prone Comments worked on releasing the left side of the lumbar paraspinals and Quadratus lumborum Joint Mobilizations 3 Joint thoracic spine mobilzations in prone Comments grade II for improved thoracic extension PT-OP-R Modalities Start: 09/07/17 15:56 Freq: Status: Active Protocol: Document 11/02/17 17:24 [facility] (Rec: 11/02/17 17:30 [facility] [email or web address]) Ultrasound Therapy Treatment right upper trapexius Treatment Duration (minutes) 8 Patient Position Sitting Coupling Medium Ultrasound Gel Applicator Size (cm2) 5 Frequency Setting (mHz) 1 Mode Setting Continuous Duty Cycle 100% Intensity Setting (w/cm2) 1.5 PT-OP-T Assessment and Plan Start: 08/18/17 20:48 Freq: Status: Active Protocol: Document 08/02/18 11:15 [facility] (Rec: 08/07/18 09:25 [facility] [email or web address]) Physical Therapy Assessment Assessment Summary Assessment continued to work on thoracic mobilizations as this tightness affects her sacrum. Physical Therapy Plan Frequency and Duration Frequency of Treatment 2x/Week Duration of Treatment 8 weeks Plan of Care Start Date 07/26/18 Plan of Care End Date 09/20/18 Therapeutic Interventions Therapeutic Interventions Home Exercise Program Joint Mobilizations Manual Therapy Neuromuscular Re-education Patient/Caregiver Education Self-Care/Home Management Therapeutic Exercises Modalities Ultrasound Next Visit Focus/Plan Next Note Type Treatment Note Next Visit Plan continue to work on posture exercises and manual work to help offset muscle tightness from the scoliosis
--- NOTE | 2018-08-07 14:26 | PT.OTN ---
Current Diagnoses Dorsalgia, unspecified (08/07/18) Physical Therapy Treatment Note PT-OP-A Visit Information Start: 08/18/17 20:48 Freq: Status: Active Protocol: Document 08/07/18 14:22 [facility] (Rec: 08/07/18 14:26 [facility] [email or web address]) Out-Patient Physical Therapy Visit Information Visit Information Visit Type Treatment Note Visit Start Time 11:15 Visit Stop Time 12:00 Total Visit Minutes 45 Visit Number 4 Number of WEIGHT LOSS COUNSELOR Visits 0 PT-OP-B Current Condition Start: 08/18/17 20:48 Freq: Status: Active Protocol: Document 07/26/18 11:15 [facility] (Rec: 07/31/18 13:29 [facility] [email or web address]) Current Condition History of Current Condition Onset Date recent onset of sacral/LBP 3 weeks ago Current Complaints alternating left and right sided sacral pain History of Current Condition nasra 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 She was doing well with her home stabilization program and aquatic exercise but recently flared her sacrum and SI joint after doing a abdominal exercise. She has been complaining of SI joint pain since PT-OP-C Subjective Start: 08/18/17 20:48 Freq: Status: Active Protocol: Document 08/07/18 14:22 [facility] (Rec: 08/07/18 14:26 [facility] [email or web address]) OP-PT Subjective Patient Comments Patient Comments right sided sacral tightness and felt a pulling in the right sacrum when reaching with the right arm to turn in the pool when swimming. Nasra neff reports she has been doing all of her stretches and exercises PT-OP-F Manual Assessment Start: 08/18/17 20:48 Freq: Status: Active Protocol: Document 07/26/18 11:15 [facility] (Rec: 07/31/18 13:29 [facility] [email or web address]) Manual Assessments Soft Tissue Assessment Soft Tissue Mobility Assessment tightness in the piriformis muscle left greater than right , tightness Left ITB Joint Mobility Assessment Joint Mobility Assessment + ASLR test for right SI instability and sacrum is rotated to the right with scoliosis Nasra Enrique is rotated to the left in her upper thoracic spine , right shoulder is forward PT-OP-J Posture/Palpation/Skin Start: 08/18/17 20:48 Freq: Status: Active Protocol: Document 07/26/18 11:15 [facility] (Rec: 07/31/18 13:29 [facility] [email or web address]) Posture Evaluation Position Standing Evaluation View Posterior Shoulder Posture (R) Rounded (R) Forward Palpation Assessment Location One Palpation Location PSIS and sacral NELY. saral base Palpation Findings Soft Tissue Tightness Muscle Guarding Tenderness Palpation Details tenderness on either side of the sacrum with muscle guarding, tenderness to palpation at the sacral base and PSIS bilaterally PT-OP-K Range of Motion Start: 08/18/17 20:48 Freq: Status: Active Protocol: Document 10/12/17 09:45 [facility] (Rec: 10/15/17 14:22 [facility] [email or web address]) Lumbar Spine Range of Motion Lumbar Spine Active Testing Position standing Flexion 80 Lateral Flexion Left 65 Lateral Flexion Right 55 Comments decreased overall tightness PT-OP-Q Treatments Start: 08/18/17 20:48 Freq: Status: Active Protocol: Document 08/07/18 14:22 [facility] (Rec: 08/07/18 14:26 [facility] [email or web address]) Therapeutic Exercises Standing Exercises 4 Standing Exercise Name standing SA wall press Reps/Minutes x 20 reps 3 Standing Exercise Name shoulder ER Reps/Minutes 3 x 10 2 Standing Exercise Name standinghorizontal abduction Equipment Used level 1 theraband Reps/Minutes 2 x 10 reps 1 Standing Exercise Name theraband rows, lat pull down and ER Equipment Used lev 1 theraband Reps/Minutes 3 sets of 10 each Manual Therapy Treatment Soft Tissue Mobilization 3 Body Location Bilateral piriformis release 2 Body Location lumbar paraspinal MFR Body Position Prone Comments worked on releasing the left side of the lumbar paraspinals and Quadratus lumborum Joint Mobilizations 3 Joint thoracic spine mobilzations in prone Comments grade II for improved thoracic extension 1 Joint MET for sacral counter nutation PT-OP-R Modalities Start: 09/07/17 15:56 Freq: Status: Active Protocol: Document 11/02/17 17:24 [facility] (Rec: 11/02/17 17:30 [facility] [email or web address]) Ultrasound Therapy Treatment right upper trapexius Treatment Duration (minutes) 8 Patient Position Sitting Coupling Medium Ultrasound Gel Applicator Size (cm2) 5 Frequency Setting (mHz) 1 Mode Setting Continuous Duty Cycle 100% Intensity Setting (w/cm2) 1.5 PT-OP-T Assessment and Plan Start: 08/18/17 20:48 Freq: Status: Active Protocol: Document 08/07/18 14:22 [facility] (Rec: 08/07/18 14:26 [facility] [email or web address]) Physical Therapy Assessment Assessment Summary Assessment Nasra neff is working hard on her home program and swimming. Continue to work on thoracic rotation to the right Physical Therapy Plan Frequency and Duration Frequency of Treatment 2x/Week Duration of Treatment 8 weeks Plan of Care Start Date 07/26/18 Plan of Care End Date 09/20/18 Therapeutic Interventions Therapeutic Interventions Home Exercise Program Joint Mobilizations Manual Therapy Neuromuscular Re-education Patient/Caregiver Education Self-Care/Home Management Therapeutic Exercises Modalities Ultrasound Next Visit Focus/Plan Next Note Type Treatment Note Next Visit Plan continue to work on posture exercises and manual work to help offset muscle tightness from the scoliosis
--- NOTE | 2018-09-04 08:41 | PT.OTN ---
Current Diagnoses Dorsalgia, unspecified (08/30/18) Physical Therapy Treatment Note PT-OP-A Visit Information Start: 08/18/17 20:48 Freq: Status: Active Protocol: Document 08/30/18 11:15 [facility] (Rec: 09/04/18 08:40 [facility] [email or web address]) Out-Patient Physical Therapy Visit Information Visit Information Visit Type Treatment Note Visit Start Time 11:15 Visit Stop Time 12:00 Total Visit Minutes 45 Visit Number 5 PT-OP-B Current Condition Start: 08/18/17 20:48 Freq: Status: Active Protocol: Document 07/26/18 11:15 [facility] (Rec: 07/31/18 13:29 [facility] [email or web address]) Current Condition History of Current Condition Onset Date recent onset of sacral/LBP 3 weeks ago Current Complaints alternating left and right sided sacral pain History of Current Condition nasra 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 She was doing well with her home stabilization program and aquatic exercise but recently flared her sacrum and SI joint after doing a abdominal exercise. She has been complaining of SI joint pain since PT-OP-C Subjective Start: 08/18/17 20:48 Freq: Status: Active Protocol: Document 08/30/18 11:15 [facility] (Rec: 09/04/18 08:40 [facility] [email or web address]) OP-PT Subjective Patient Comments Patient Comments Doing better overall with her stretches, sacral discomfort is intermittent left lateral sacrum and mid back tightness PT-OP-F Manual Assessment Start: 08/18/17 20:48 Freq: Status: Active Protocol: Document 07/26/18 11:15 [facility] (Rec: 07/31/18 13:29 [facility] [email or web address]) Manual Assessments Soft Tissue Assessment Soft Tissue Mobility Assessment tightness in the piriformis muscle left greater than right , tightness Left ITB Joint Mobility Assessment Joint Mobility Assessment + ASLR test for right SI instability and sacrum is rotated to the right with scoliosis Nasra Enrique is rotated to the left in her upper thoracic spine , right shoulder is forward PT-OP-J Posture/Palpation/Skin Start: 08/18/17 20:48 Freq: Status: Active Protocol: Document 07/26/18 11:15 [facility] (Rec: 07/31/18 13:29 [facility] [email or web address]) Posture Evaluation Position Standing Evaluation View Posterior Shoulder Posture (R) Rounded (R) Forward Palpation Assessment Location One Palpation Location PSIS and sacral NELY. saral base Palpation Findings Soft Tissue Tightness Muscle Guarding Tenderness Palpation Details tenderness on either side of the sacrum with muscle guarding, tenderness to palpation at the sacral base and PSIS bilaterally PT-OP-K Range of Motion Start: 08/18/17 20:48 Freq: Status: Active Protocol: Document 10/12/17 09:45 [facility] (Rec: 10/15/17 14:22 [facility] [email or web address]) Lumbar Spine Range of Motion Lumbar Spine Active Testing Position standing Flexion 80 Lateral Flexion Left 65 Lateral Flexion Right 55 Comments decreased overall tightness PT-OP-Q Treatments Start: 08/18/17 20:48 Freq: Status: Active Protocol: Document 08/30/18 11:15 [facility] (Rec: 09/04/18 08:40 [facility] [email or web address]) Manual Therapy Treatment Soft Tissue Mobilization 3 Body Location Bilateral piriformis release 2 Body Location lumbar paraspinal MFR Body Position Prone Comments worked on releasing the left side of the lumbar paraspinals and Quadratus lumborum 1 Body Location thoracic paraspinal MFR Joint Mobilizations 3 Joint thoracic spine mobilzations in prone Comments grade II for improved thoracic extension PT-OP-R Modalities Start: 09/07/17 15:56 Freq: Status: Active Protocol: Document 08/30/18 11:15 [facility] (Rec: 09/04/18 08:41 [facility] [email or web address]) Ultrasound Therapy Treatment Left Upper Back Treatment Duration (minutes) 8 Patient Position Prone Coupling Medium Ultrasound Gel Applicator Size (cm2) 5 Frequency Setting (mHz) 1 Mode Setting Continuous Duty Cycle 100% Intensity Setting (w/cm2) 1.5 Comments US over the left lower thoracic paraspinals PT-OP-T Assessment and Plan Start: 08/18/17 20:48 Freq: Status: Active Protocol: Document 08/30/18 11:15 [facility] (Rec: 09/04/18 08:40 [facility] [email or web address]) Physical Therapy Assessment Assessment Summary Assessment Improving awareness of thoracic spinal tightness and stretches to do at home to work on release of the thoracic spine and sacral region Physical Therapy Plan Frequency and Duration Frequency of Treatment 2x/Week Duration of Treatment 8 weeks Plan of Care Start Date 07/26/18 Plan of Care End Date 09/20/18 Therapeutic Interventions Therapeutic Interventions Home Exercise Program Joint Mobilizations Manual Therapy Neuromuscular Re-education Patient/Caregiver Education Self-Care/Home Management Therapeutic Exercises Modalities Ultrasound Next Visit Focus/Plan Next Note Type Treatment Note Next Visit Plan continue to work on posture exercises and manual work to help offset muscle tightness from the scoliosis
--- NOTE | 2018-09-06 18:23 | PT.OTN ---
Current Diagnoses Dorsalgia, unspecified (09/06/18) Physical Therapy Treatment Note PT-OP-A Visit Information Start: 08/18/17 20:48 Freq: Status: Active Protocol: Document 09/06/18 18:17 [facility] (Rec: 09/06/18 18:23 [facility] [email or web address]) Out-Patient Physical Therapy Visit Information Visit Information Visit Type Treatment Note Visit Start Time 15:15 Visit Stop Time 16:00 Total Visit Minutes 45 Visit Number 6 Number of FLAKEBOARD LINE TENDER Visits 0 PT-OP-B Current Condition Start: 08/18/17 20:48 Freq: Status: Active Protocol: Document 07/26/18 11:15 [facility] (Rec: 07/31/18 13:29 [facility] [email or web address]) Current Condition History of Current Condition Onset Date recent onset of sacral/LBP 3 weeks ago Current Complaints alternating left and right sided sacral pain History of Current Condition nasra 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 She was doing well with her home stabilization program and aquatic exercise but recently flared her sacrum and SI joint after doing a abdominal exercise. She has been complaining of SI joint pain since PT-OP-C Subjective Start: 08/18/17 20:48 Freq: Status: Active Protocol: Document 09/06/18 18:17 [facility] (Rec: 09/06/18 18:23 [facility] [email or web address]) OP-PT Subjective Patient Comments Patient Comments Nini reports she had pain into the inner thigh when putting up her blinds, also her neck is feeling sore today and tight PT-OP-F Manual Assessment Start: 08/18/17 20:48 Freq: Status: Active Protocol: Document 07/26/18 11:15 [facility] (Rec: 07/31/18 13:29 [facility] [email or web address]) Manual Assessments Soft Tissue Assessment Soft Tissue Mobility Assessment tightness in the piriformis muscle left greater than right , tightness Left ITB Joint Mobility Assessment Joint Mobility Assessment + ASLR test for right SI instability and sacrum is rotated to the right with scoliosis Nasra Enrique is rotated to the left in her upper thoracic spine , right shoulder is forward PT-OP-J Posture/Palpation/Skin Start: 08/18/17 20:48 Freq: Status: Active Protocol: Document 07/26/18 11:15 [facility] (Rec: 07/31/18 13:29 [facility] [email or web address]) Posture Evaluation Position Standing Evaluation View Posterior Shoulder Posture (R) Rounded (R) Forward Palpation Assessment Location One Palpation Location PSIS and sacral NELY. saral base Palpation Findings Soft Tissue Tightness Muscle Guarding Tenderness Palpation Details tenderness on either side of the sacrum with muscle guarding, tenderness to palpation at the sacral base and PSIS bilaterally PT-OP-K Range of Motion Start: 08/18/17 20:48 Freq: Status: Active Protocol: Document 10/12/17 09:45 [facility] (Rec: 10/15/17 14:22 [facility] [email or web address]) Lumbar Spine Range of Motion Lumbar Spine Active Testing Position standing Flexion 80 Lateral Flexion Left 65 Lateral Flexion Right 55 Comments decreased overall tightness PT-OP-Q Treatments Start: 08/18/17 20:48 Freq: Status: Active Protocol: Document 09/06/18 18:17 [facility] (Rec: 09/06/18 18:23 [facility] [email or web address]) Therapeutic Exercises Supine Exercises 1 Supine Exercise Name adductor stretch with strap Reps/Minutes x 1 min Sitting Exercises 1 Sitting Exercise Name seated cervical flexion and sidebending stretch Reps/Minutes x 5 each side Standing Exercises 4 Standing Exercise Name standing SA wall press Reps/Minutes x 20 reps Other Exercises 1 Other Exercise Name seated adductor stretch Reps/Minutes x 1 min Manual Therapy Treatment Soft Tissue Mobilization 4 Body Location supine suboccipital release and manual STM and stretching to the scalenes Comments upper trap stretch and levator scapula stretch included as well as STM to the upper trapezius B PT-OP-R Modalities Start: 09/07/17 15:56 Freq: Status: Active Protocol: Document 08/30/18 11:15 [facility] (Rec: 09/04/18 08:41 [facility] [email or web address]) Ultrasound Therapy Treatment Left Upper Back Treatment Duration (minutes) 8 Patient Position Prone Coupling Medium Ultrasound Gel Applicator Size (cm2) 5 Frequency Setting (mHz) 1 Mode Setting Continuous Duty Cycle 100% Intensity Setting (w/cm2) 1.5 Comments US over the left lower thoracic paraspinals PT-OP-T Assessment and Plan Start: 08/18/17 20:48 Freq: Status: Active Protocol: Document 09/06/18 18:17 [facility] (Rec: 09/06/18 18:23 [facility] [email or web address]) Physical Therapy Assessment Assessment Summary Assessment Very tight scalenes bilaterally, reviewed home exercise program for cervical stretching Physical Therapy Plan Frequency and Duration Frequency of Treatment 2x/Week Duration of Treatment 8 weeks Plan of Care Start Date 07/26/18 Plan of Care End Date 09/20/18 Therapeutic Interventions Therapeutic Interventions Home Exercise Program Joint Mobilizations Manual Therapy Neuromuscular Re-education Patient/Caregiver Education Self-Care/Home Management Therapeutic Exercises Modalities Ultrasound Next Visit Focus/Plan Next Note Type Treatment Note Next Visit Plan continue to work on posture exercises and manual work to help offset muscle tightness from the scoliosis
--- NOTE | 2018-09-18 20:15 | PT.OTN ---
Current Diagnoses Dorsalgia, unspecified (09/18/18) Physical Therapy Treatment Note PT-OP-A Visit Information Start: 08/18/17 20:48 Freq: Status: Active Protocol: Document 09/18/18 16:00 [facility] (Rec: 09/18/18 20:15 [facility] [email or web address]) Out-Patient Physical Therapy Visit Information Visit Information Visit Type Treatment Note Visit Start Time 16:00 Visit Stop Time 16:45 Total Visit Minutes 45 Visit Number 7 Number of HVAC RESIDENTIAL SERVICE TECHNICIAN Visits 0 PT-OP-B Current Condition Start: 08/18/17 20:48 Freq: Status: Active Protocol: Document 07/26/18 11:15 [facility] (Rec: 07/31/18 13:29 [facility] [email or web address]) Current Condition History of Current Condition Onset Date recent onset of sacral/LBP 3 weeks ago Current Complaints alternating left and right sided sacral pain History of Current Condition nasra 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 She was doing well with her home stabilization program and aquatic exercise but recently flared her sacrum and SI joint after doing a abdominal exercise. She has been complaining of SI joint pain since PT-OP-C Subjective Start: 08/18/17 20:48 Freq: Status: Active Protocol: Document 09/18/18 16:00 [facility] (Rec: 09/18/18 20:15 [facility] [email or web address]) OP-PT Subjective Patient Comments Patient Comments Nini has still been feeling the left adductor pain from when she worked on her mini blinds, also left sided ITB tightness at the knee and LE PT-OP-F Manual Assessment Start: 08/18/17 20:48 Freq: Status: Active Protocol: Document 07/26/18 11:15 [facility] (Rec: 07/31/18 13:29 [facility] [email or web address]) Manual Assessments Soft Tissue Assessment Soft Tissue Mobility Assessment tightness in the piriformis muscle left greater than right , tightness Left ITB Joint Mobility Assessment Joint Mobility Assessment + ASLR test for right SI instability and sacrum is rotated to the right with scoliosis Nasra Enrique is rotated to the left in her upper thoracic spine , right shoulder is forward PT-OP-J Posture/Palpation/Skin Start: 08/18/17 20:48 Freq: Status: Active Protocol: Document 07/26/18 11:15 [facility] (Rec: 07/31/18 13:29 [facility] [email or web address]) Posture Evaluation Position Standing Evaluation View Posterior Shoulder Posture (R) Rounded (R) Forward Palpation Assessment Location One Palpation Location PSIS and sacral NELY. saral base Palpation Findings Soft Tissue Tightness Muscle Guarding Tenderness Palpation Details tenderness on either side of the sacrum with muscle guarding, tenderness to palpation at the sacral base and PSIS bilaterally PT-OP-K Range of Motion Start: 08/18/17 20:48 Freq: Status: Active Protocol: Document 10/12/17 09:45 [facility] (Rec: 10/15/17 14:22 [facility] [email or web address]) Lumbar Spine Range of Motion Lumbar Spine Active Testing Position standing Flexion 80 Lateral Flexion Left 65 Lateral Flexion Right 55 Comments decreased overall tightness PT-OP-Q Treatments Start: 08/18/17 20:48 Freq: Status: Active Protocol: Document 09/18/18 16:00 [facility] (Rec: 09/18/18 20:15 [facility] [email or web address]) Manual Therapy Treatment Soft Tissue Mobilization 5 Body Location ITB myofascial release both distally and proximally Comments left side 3 Body Location Bilateral piriformis release 1 Body Location thoracic paraspinal MFR Manual Techniques 1 Type manual ITB release and hamstring stretching Self-Care/Home Management Treatment Education Patient Education Home Exercise Program Other Education Use of [employer] blaster for home over the ITB, ankle ROM education to help avoid lateral peroneal tightness PT-OP-R Modalities Start: 09/07/17 15:56 Freq: Status: Active Protocol: Document 08/30/18 11:15 [facility] (Rec: 09/04/18 08:41 [facility] [email or web address]) Ultrasound Therapy Treatment Left Upper Back Treatment Duration (minutes) 8 Patient Position Prone Coupling Medium Ultrasound Gel Applicator Size (cm2) 5 Frequency Setting (mHz) 1 Mode Setting Continuous Duty Cycle 100% Intensity Setting (w/cm2) 1.5 Comments US over the left lower thoracic paraspinals PT-OP-T Assessment and Plan Start: 08/18/17 20:48 Freq: Status: Active Protocol: Document 09/18/18 16:00 [facility] (Rec: 09/18/18 20:15 [facility] [email or web address]) Physical Therapy Assessment Assessment Summary Assessment Leg length equal and decreased adductor tightness as compared to last week, ITB still guarded and tight on the left Physical Therapy Plan Frequency and Duration Frequency of Treatment 2x/Week Duration of Treatment 8 weeks Plan of Care Start Date 07/26/18 Plan of Care End Date 09/20/18 Next Visit Focus/Plan Next Note Type Treatment Note Next Visit Plan review ITB stretches and piriformis stretches next visit, TA stabilzation
--- NOTE | 2018-09-18 20:15 | PT.OTN ---
Current Diagnoses Dorsalgia, unspecified (09/18/18) Physical Therapy Treatment Note PT-OP-A Visit Information Start: 08/18/17 20:48 Freq: Status: Active Protocol: Document 09/18/18 16:00 [facility] (Rec: 09/18/18 20:15 [facility] [email or web address]) Out-Patient Physical Therapy Visit Information Visit Information Visit Type Treatment Note Visit Start Time 16:00 Visit Stop Time 16:45 Total Visit Minutes 45 Visit Number 7 Number of STORM CHASER Visits 0 PT-OP-B Current Condition Start: 08/18/17 20:48 Freq: Status: Active Protocol: Document 07/26/18 11:15 [facility] (Rec: 07/31/18 13:29 [facility] [email or web address]) Current Condition History of Current Condition Onset Date recent onset of sacral/LBP 3 weeks ago Current Complaints alternating left and right sided sacral pain History of Current Condition nasra 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 She was doing well with her home stabilization program and aquatic exercise but recently flared her sacrum and SI joint after doing a abdominal exercise. She has been complaining of SI joint pain since PT-OP-C Subjective Start: 08/18/17 20:48 Freq: Status: Active Protocol: Document 09/18/18 16:00 [facility] (Rec: 09/18/18 20:15 [facility] [email or web address]) OP-PT Subjective Patient Comments Patient Comments Nini has still been feeling the left adductor pain from when she worked on her mini blinds, also left sided ITB tightness at the knee and LE PT-OP-F Manual Assessment Start: 08/18/17 20:48 Freq: Status: Active Protocol: Document 07/26/18 11:15 [facility] (Rec: 07/31/18 13:29 [facility] [email or web address]) Manual Assessments Soft Tissue Assessment Soft Tissue Mobility Assessment tightness in the piriformis muscle left greater than right , tightness Left ITB Joint Mobility Assessment Joint Mobility Assessment + ASLR test for right SI instability and sacrum is rotated to the right with scoliosis Nasra Enrique is rotated to the left in her upper thoracic spine , right shoulder is forward PT-OP-J Posture/Palpation/Skin Start: 08/18/17 20:48 Freq: Status: Active Protocol: Document 07/26/18 11:15 [facility] (Rec: 07/31/18 13:29 [facility] [email or web address]) Posture Evaluation Position Standing Evaluation View Posterior Shoulder Posture (R) Rounded (R) Forward Palpation Assessment Location One Palpation Location PSIS and sacral NELY. saral base Palpation Findings Soft Tissue Tightness Muscle Guarding Tenderness Palpation Details tenderness on either side of the sacrum with muscle guarding, tenderness to palpation at the sacral base and PSIS bilaterally PT-OP-K Range of Motion Start: 08/18/17 20:48 Freq: Status: Active Protocol: Document 10/12/17 09:45 [facility] (Rec: 10/15/17 14:22 [facility] [email or web address]) Lumbar Spine Range of Motion Lumbar Spine Active Testing Position standing Flexion 80 Lateral Flexion Left 65 Lateral Flexion Right 55 Comments decreased overall tightness PT-OP-Q Treatments Start: 08/18/17 20:48 Freq: Status: Active Protocol: Document 09/18/18 16:00 [facility] (Rec: 09/18/18 20:15 [facility] [email or web address]) Manual Therapy Treatment Soft Tissue Mobilization 5 Body Location ITB myofascial release both distally and proximally Comments left side 3 Body Location Bilateral piriformis release 1 Body Location thoracic paraspinal MFR Manual Techniques 1 Type manual ITB release and hamstring stretching Self-Care/Home Management Treatment Education Patient Education Home Exercise Program Other Education Use of [employer] blaster for home over the ITB, ankle ROM education to help avoid lateral peroneal tightness PT-OP-R Modalities Start: 09/07/17 15:56 Freq: Status: Active Protocol: Document 08/30/18 11:15 [facility] (Rec: 09/04/18 08:41 [facility] [email or web address]) Ultrasound Therapy Treatment Left Upper Back Treatment Duration (minutes) 8 Patient Position Prone Coupling Medium Ultrasound Gel Applicator Size (cm2) 5 Frequency Setting (mHz) 1 Mode Setting Continuous Duty Cycle 100% Intensity Setting (w/cm2) 1.5 Comments US over the left lower thoracic paraspinals PT-OP-T Assessment and Plan Start: 08/18/17 20:48 Freq: Status: Active Protocol: Document 09/18/18 16:00 [facility] (Rec: 09/18/18 20:15 [facility] [email or web address]) Physical Therapy Assessment Assessment Summary Assessment Leg length equal and decreased adductor tightness as compared to last week, ITB still guarded and tight on the left Physical Therapy Plan Frequency and Duration Frequency of Treatment 2x/Week Duration of Treatment 8 weeks Plan of Care Start Date 07/26/18 Plan of Care End Date 09/20/18 Next Visit Focus/Plan Next Note Type Treatment Note Next Visit Plan review ITB stretches and piriformis stretches next visit, TA stabilzation
--- NOTE | 2018-10-22 08:09 | PT.OTN ---
Current Diagnoses Dorsalgia, unspecified (10/17/18) Physical Therapy Treatment Note PT-OP-A Visit Information Start: 08/18/17 20:48 Freq: Status: Active Protocol: Document 10/17/18 11:15 [facility] (Rec: 10/22/18 08:05 [facility] [email or web address]) Out-Patient Physical Therapy Visit Information Visit Information Visit Type Treatment Note Visit Start Time 11:15 Visit Stop Time 12:00 Total Visit Minutes 45 Visit Number 8 Number of RESEARCH PROFESSOR Visits 0 PT-OP-B Current Condition Start: 08/18/17 20:48 Freq: Status: Active Protocol: Document 07/26/18 11:15 [facility] (Rec: 07/31/18 13:29 [facility] [email or web address]) Current Condition History of Current Condition Onset Date recent onset of sacral/LBP 3 weeks ago Current Complaints alternating left and right sided sacral pain History of Current Condition nasra 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 She was doing well with her home stabilization program and aquatic exercise but recently flared her sacrum and SI joint after doing a abdominal exercise. She has been complaining of SI joint pain since PT-OP-C Subjective Start: 08/18/17 20:48 Freq: Status: Active Protocol: Document 10/17/18 11:15 [facility] (Rec: 10/22/18 08:05 [facility] [email or web address]) OP-PT Subjective Patient Comments Patient Comments Nasra Enrique reports she is doing better and her ITB pain has lessened. SHe is still experiencing her lateral leg pain that she is not sure if it is fom her back or ITB PT-OP-F Manual Assessment Start: 08/18/17 20:48 Freq: Status: Active Protocol: Document 07/26/18 11:15 [facility] (Rec: 07/31/18 13:29 [facility] [email or web address]) Manual Assessments Soft Tissue Assessment Soft Tissue Mobility Assessment tightness in the piriformis muscle left greater than right , tightness Left ITB Joint Mobility Assessment Joint Mobility Assessment + ASLR test for right SI instability and sacrum is rotated to the right with scoliosis Nasra Enrique is rotated to the left in her upper thoracic spine , right shoulder is forward PT-OP-J Posture/Palpation/Skin Start: 08/18/17 20:48 Freq: Status: Active Protocol: Document 07/26/18 11:15 [facility] (Rec: 07/31/18 13:29 [facility] [email or web address]) Posture Evaluation Position Standing Evaluation View Posterior Shoulder Posture (R) Rounded,(R) Forward Palpation Assessment Location One Palpation Location PSIS and sacral NELY. saral base Palpation Findings Soft Tissue Tightness,Muscle Guarding,Tenderness Palpation Details tenderness on either side of the sacrum with muscle guarding, tenderness to palpation at the sacral base and PSIS bilaterally PT-OP-K Range of Motion Start: 08/18/17 20:48 Freq: Status: Active Protocol: Document 10/12/17 09:45 [facility] (Rec: 10/15/17 14:22 [facility] [email or web address]) Lumbar Spine Range of Motion Lumbar Spine Active Testing Position standing Flexion 80 Lateral Flexion Left 65 Lateral Flexion Right 55 Comments decreased overall tightness PT-OP-Q Treatments Start: 08/18/17 20:48 Freq: Status: Active Protocol: Document 10/17/18 11:15 [facility] (Rec: 10/22/18 08:05 [facility] [email or web address]) Therapeutic Exercises Sitting Exercises 2 Sitting Exercise Name seated arch lifts and arch pulls Standing Exercises 5 Standing Exercise Name standing arch lift Manual Therapy Treatment Soft Tissue Mobilization 3 Body Location Bilateral piriformis release 2 Body Location lumbar spine paraspinal release 1 Body Location thoracic paraspinal MFR Manual Techniques 1 Type manual ITB release and hamstring stretching PT-OP-R Modalities Start: 09/07/17 15:56 Freq: Status: Active Protocol: Document 08/30/18 11:15 [facility] (Rec: 09/04/18 08:41 [facility] [email or web address]) Ultrasound Therapy Treatment Left Upper Back Treatment Duration (minutes) 8 Patient Position Prone Coupling Medium Ultrasound Gel Applicator Size (cm2) 5 Frequency Setting (mHz) 1 Mode Setting Continuous Duty Cycle 100% Intensity Setting (w/cm2) 1.5 Comments US over the left lower thoracic paraspinals PT-OP-T Assessment and Plan Start: 08/18/17 20:48 Freq: Status: Active Protocol: Document 10/17/18 11:15 [facility] (Rec: 10/22/18 08:05 [facility] [email or web address]) Physical Therapy Assessment Assessment Summary Assessment improved ITB length today, worked on arch support for standing posture, Nasra Neff is doing well with her HEP Physical Therapy Plan Frequency and Duration Frequency of Treatment 1x/Week Duration of Treatment 8 weeks Plan of Care Start Date 09/20/18 Plan of Care End Date 11/20/18 Therapeutic Interventions Therapeutic Interventions Home Exercise Program,Joint Mobilizations,Manual Therapy, Neuromuscular Re-education, Patient/Caregiver Education, Self-Care/Home Management, Therapeutic Exercises Modalities Ultrasound Next Visit Focus/Plan Next Note Type Treatment Note Next Visit Plan continue with stabilization, posture exercises, ROM/ stretches and manual therapy techniques
--- NOTE | 2018-10-22 08:10 | PT.OPPOC ---
Current Diagnoses Dorsalgia, unspecified (10/17/18) Visit Care Team Role Provider Type Lan Gomes MD Attending Provider Physician Family Provider Primary Care Provider Specialty: Family Practice Address: [address] [place] [address], [id number] Email: [email or web address] Plan Of Care PT-OP-T Assessment and Plan Start: 08/18/17 20:48 Freq: Status: Active Protocol: Document 10/17/18 11:15 [facility] (Rec: 10/22/18 08:05 [facility] [email or web address]) Physical Therapy Assessment Assessment Summary Assessment improved ITB length today, worked on arch support for standing posture, Yaritza Neff is doing well with her HEP Physical Therapy Plan Frequency and Duration Frequency of Treatment 1x/Week Duration of Treatment 8 weeks Plan of Care Start Date 09/20/18 Plan of Care End Date 11/20/18 Therapeutic Interventions Therapeutic Interventions Home Exercise Program,Joint Mobilizations,Manual Therapy, Neuromuscular Re-education, Patient/Caregiver Education, Self-Care/Home Management, Therapeutic Exercises Modalities Ultrasound Next Visit Focus/Plan Next Note Type Treatment Note Next Visit Plan continue with stabilization, posture exercises, ROM/ stretches and manual therapy techniques Plan of Care Dates Plan of Care Start Date 09/20/18 Plan of Care End Date 11/20/18 Please Sign and Return: I have reviewed this Plan of Care and certify that the skilled therapy services above are required to meet the patient?s needs. Physician Signature Date Printed Name and Credentials Clinical Instructor Signature Printed Name and Credentials
--- NOTE | 2018-10-25 17:17 | PT.OTN ---
Current Diagnoses Dorsalgia, unspecified (10/25/18) Physical Therapy Treatment Note PT-OP-A Visit Information Start: 08/18/17 20:48 Freq: Status: Active Protocol: Document 10/25/18 17:10 [facility] (Rec: 10/25/18 17:17 [facility] [email or web address]) Out-Patient Physical Therapy Visit Information Visit Information Visit Type Treatment Note Visit Start Time 11:15 Visit Stop Time 12:00 Total Visit Minutes 45 Visit Number 9 Number of IMPORT/EXPORT SPECIALIST Visits 0 PT-OP-B Current Condition Start: 08/18/17 20:48 Freq: Status: Active Protocol: Document 07/26/18 11:15 [facility] (Rec: 07/31/18 13:29 [facility] [email or web address]) Current Condition History of Current Condition Onset Date recent onset of sacral/LBP 3 weeks ago Current Complaints alternating left and right sided sacral pain History of Current Condition nsara 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 She was doing well with her home stabilization program and aquatic exercise but recently flared her sacrum and SI joint after doing a abdominal exercise. She has been complaining of SI joint pain since PT-OP-C Subjective Start: 08/18/17 20:48 Freq: Status: Active Protocol: Document 10/25/18 17:10 [facility] (Rec: 10/25/18 17:17 [facility] [email or web address]) OP-PT Subjective Patient Comments Patient Comments Nasra Neff states she has been doing her home exercises, she would like to include diaphragmatic breathing and asks about instruction in this as well as some ball exercises for home PT-OP-F Manual Assessment Start: 08/18/17 20:48 Freq: Status: Active Protocol: Document 07/26/18 11:15 [facility] (Rec: 07/31/18 13:29 [facility] [email or web address]) Manual Assessments Soft Tissue Assessment Soft Tissue Mobility Assessment tightness in the piriformis muscle left greater than right , tightness Left ITB Joint Mobility Assessment Joint Mobility Assessment + ASLR test for right SI instability and sacrum is rotated to the right with scoliosis Nasra Enrique is rotated to the left in her upper thoracic spine , right shoulder is forward PT-OP-J Posture/Palpation/Skin Start: 08/18/17 20:48 Freq: Status: Active Protocol: Document 07/26/18 11:15 [facility] (Rec: 07/31/18 13:29 [facility] [email or web address]) Posture Evaluation Position Standing Evaluation View Posterior Shoulder Posture (R) Rounded,(R) Forward Palpation Assessment Location One Palpation Location PSIS and sacral NELY. saral base Palpation Findings Soft Tissue Tightness,Muscle Guarding,Tenderness Palpation Details tenderness on either side of the sacrum with muscle guarding, tenderness to palpation at the sacral base and PSIS bilaterally PT-OP-K Range of Motion Start: 08/18/17 20:48 Freq: Status: Active Protocol: Document 10/12/17 09:45 [facility] (Rec: 10/15/17 14:22 [facility] [email or web address]) Lumbar Spine Range of Motion Lumbar Spine Active Testing Position standing Flexion 80 Lateral Flexion Left 65 Lateral Flexion Right 55 Comments decreased overall tightness PT-OP-Q Treatments Start: 08/18/17 20:48 Freq: Status: Active Protocol: Document 10/25/18 17:10 [facility] (Rec: 10/25/18 17:17 [facility] [email or web address]) Therapeutic Exercises Supine Exercises 6 Supine Exercise Name supine diaphragmatic breathing Comments worked on the 16 count breath Sitting Exercises 4 Sitting Exercise Name seated ball TA facilitation with opposite arm lifts overhead 3 Sitting Exercise Name seated ball pelvic tiltls, lateral tilts and pelvic clocks Manual Therapy Treatment Soft Tissue Mobilization 4 Body Location supine suboccipital release and manual STM and stretching to the scalenes Comments upper trap stretch and levator scapula stretch included as well as STM to the upper trapezius B 1 Body Location thoracic paraspinal MFR PT-OP-R Modalities Start: 09/07/17 15:56 Freq: Status: Active Protocol: Document 08/30/18 11:15 [facility] (Rec: 09/04/18 08:41 [facility] [email or web address]) Ultrasound Therapy Treatment Left Upper Back Treatment Duration (minutes) 8 Patient Position Prone Coupling Medium Ultrasound Gel Applicator Size (cm2) 5 Frequency Setting (mHz) 1 Mode Setting Continuous Duty Cycle 100% Intensity Setting (w/cm2) 1.5 Comments US over the left lower thoracic paraspinals PT-OP-T Assessment and Plan Start: 08/18/17 20:48 Freq: Status: Active Protocol: Document 10/25/18 17:10 [facility] (Rec: 10/25/18 17:17 [facility] [email or web address]) Physical Therapy Assessment Assessment Summary Assessment diaphragmatic breathing was difficult and Nasra Neff lacks full rib cage excursion on the right due to her scoliosis. She did well with the 16 count breath and this helped reduce tension in her rib cage Physical Therapy Plan Frequency and Duration Frequency of Treatment 1x/Week Duration of Treatment 8 weeks Plan of Care Start Date 09/20/18 Plan of Care End Date 11/20/18 Therapeutic Interventions Therapeutic Interventions Home Exercise Program,Joint Mobilizations,Manual Therapy, Neuromuscular Re-education, Patient/Caregiver Education, Self-Care/Home Management, Therapeutic Exercises Modalities Ultrasound Next Visit Focus/Plan Next Note Type Treatment Note Next Visit Plan continue with stabilization, posture exercises, ROM/ stretches and manual therapy techniques
--- NOTE | 2018-10-31 12:48 | PT.OTN ---
Current Diagnoses Dorsalgia, unspecified (10/31/18) Physical Therapy Treatment Note PT-OP-A Visit Information Start: 08/18/17 20:48 Freq: Status: Active Protocol: Document 10/31/18 12:40 [facility] (Rec: 10/31/18 12:48 [facility] [email or web address]) Out-Patient Physical Therapy Visit Information Visit Information Visit Type Treatment Note Visit Start Time 10:45 Visit Stop Time 11:30 Total Visit Minutes 45 Visit Number 10 Number of CLINICAL TEAM LEAD Visits 0 PT-OP-B Current Condition Start: 08/18/17 20:48 Freq: Status: Active Protocol: Document 07/26/18 11:15 [facility] (Rec: 07/31/18 13:29 [facility] [email or web address]) Current Condition History of Current Condition Onset Date recent onset of sacral/LBP 3 weeks ago Current Complaints alternating left and right sided sacral pain History of Current Condition nasra 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 She was doing well with her home stabilization program and aquatic exercise but recently flared her sacrum and SI joint after doing a abdominal exercise. She has been complaining of SI joint pain since PT-OP-C Subjective Start: 08/18/17 20:48 Freq: Status: Active Protocol: Document 10/31/18 12:40 [facility] (Rec: 10/31/18 12:48 [facility] [email or web address]) OP-PT Subjective Patient Comments Patient Comments Nasra Neff has been practicing her breathing techniques with diaphragmatic breathing. She is feeling like tis is helping to mobilize her rib cage PT-OP-F Manual Assessment Start: 08/18/17 20:48 Freq: Status: Active Protocol: Document 07/26/18 11:15 [facility] (Rec: 07/31/18 13:29 [facility] [email or web address]) Manual Assessments Soft Tissue Assessment Soft Tissue Mobility Assessment tightness in the piriformis muscle left greater than right , tightness Left ITB Joint Mobility Assessment Joint Mobility Assessment + ASLR test for right SI instability and sacrum is rotated to the right with scoliosis Nasra Enrique is rotated to the left in her upper thoracic spine , right shoulder is forward PT-OP-J Posture/Palpation/Skin Start: 08/18/17 20:48 Freq: Status: Active Protocol: Document 07/26/18 11:15 [facility] (Rec: 07/31/18 13:29 [facility] [email or web address]) Posture Evaluation Position Standing Evaluation View Posterior Shoulder Posture (R) Rounded,(R) Forward Palpation Assessment Location One Palpation Location PSIS and sacral NELY. saral base Palpation Findings Soft Tissue Tightness,Muscle Guarding,Tenderness Palpation Details tenderness on either side of the sacrum with muscle guarding, tenderness to palpation at the sacral base and PSIS bilaterally PT-OP-K Range of Motion Start: 08/18/17 20:48 Freq: Status: Active Protocol: Document 10/12/17 09:45 [facility] (Rec: 10/15/17 14:22 [facility] [email or web address]) Lumbar Spine Range of Motion Lumbar Spine Active Testing Position standing Flexion 80 Lateral Flexion Left 65 Lateral Flexion Right 55 Comments decreased overall tightness PT-OP-Q Treatments Start: 08/18/17 20:48 Freq: Status: Active Protocol: Document 10/31/18 12:40 [facility] (Rec: 10/31/18 12:48 [facility] [email or web address]) Therapeutic Exercises Supine Exercises 6 Supine Exercise Name supine diaphragmatic breathing Comments worked on the 16 count breath 5 Supine Exercise Name Foam roll stretch pectoralis stretch 4 Supine Exercise Name shoulder ER stretch on foam roll 3 Supine Exercise Name supine sidebending stretch for the Quadratus lumborum Manual Therapy Treatment Soft Tissue Mobilization 4 Body Location supine suboccipital release and manual STM and stretching to the scalenes Comments upper trap stretch and levator scapula stretch included as well as STM to the upper trapezius B 1 Body Location thoracic paraspinal MFR Joint Mobilizations 3 Joint thoracic spine mobilzations in prone PT-OP-R Modalities Start: 09/07/17 15:56 Freq: Status: Active Protocol: Document 08/30/18 11:15 [facility] (Rec: 09/04/18 08:41 [facility] [email or web address]) Ultrasound Therapy Treatment Left Upper Back Treatment Duration (minutes) 8 Patient Position Prone Coupling Medium Ultrasound Gel Applicator Size (cm2) 5 Frequency Setting (mHz) 1 Mode Setting Continuous Duty Cycle 100% Intensity Setting (w/cm2) 1.5 Comments US over the left lower thoracic paraspinals PT-OP-T Assessment and Plan Start: 08/18/17 20:48 Freq: Status: Active Protocol: Document 10/31/18 12:40 [facility] (Rec: 10/31/18 12:48 [facility] [email or web address]) Physical Therapy Assessment Assessment Summary Assessment good improvements with home exercises and stretching, Nasra Neff can tell that opening up her rib cage is helping her back Physical Therapy Plan Frequency and Duration Frequency of Treatment 1x/Week Duration of Treatment 8 weeks Plan of Care Start Date 09/20/18 Plan of Care End Date 11/20/18 Next Visit Focus/Plan Next Note Type Treatment Note Next Visit Plan continue with stabilization, posture exercises, ROM/ stretches and manual therapy techniques
--- NOTE | 2018-11-10 09:29 | PT.OTN ---
Current Diagnoses Dorsalgia, unspecified (11/08/18) Physical Therapy Treatment Note PT-OP-A Visit Information Start: 08/18/17 20:48 Freq: Status: Active Protocol: Document 11/08/18 15:15 [facility] (Rec: 11/10/18 09:29 [email or web address] Out-Patient Physical Therapy Visit Information Visit Information Visit Type Treatment Note Visit Start Time 15:15 Visit Stop Time 16:00 Total Visit Minutes 45 Visit Number 4 Number of HOSPICE HOME HEALTH AIDE Visits 0 PT-OP-B Current Condition Start: 08/18/17 20:48 Freq: Status: Active Protocol: Document 07/26/18 11:15 [facility] (Rec: 07/31/18 13:29 [email or web address] Current Condition History of Current Condition Onset Date recent onset of sacral/LBP 3 weeks ago Current Complaints alternating left and right sided sacral pain History of Current Condition nasra 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 She was doing well with her home stabilization program and aquatic exercise but recently flared her sacrum and SI joint after doing a abdominal exercise. She has been complaining of SI joint pain since PT-OP-C Subjective Start: 08/18/17 20:48 Freq: Status: Active Protocol: Document 11/08/18 15:15 [facility] (Rec: 11/10/18 09:29 [email or web address] OP-PT Subjective Patient Comments Patient Comments Has been working on postural exercises at home. Did not stretch on foam roll at home today. Wants to review all UE strengthening exercises today PT-OP-F Manual Assessment Start: 08/18/17 20:48 Freq: Status: Active Protocol: Document 07/26/18 11:15 [facility] (Rec: 07/31/18 13:29 [email or web address]) Manual Assessments Soft Tissue Assessment Soft Tissue Mobility Assessment tightness in the piriformis muscle left greater than right , tightness Left ITB Joint Mobility Assessment Joint Mobility Assessment + ASLR test for right SI instability and sacrum is rotated to the right with scoliosis Nasra Enrique is rotated to the left in her upper thoracic spine , right shoulder is forward PT-OP-J Posture/Palpation/Skin Start: 08/18/17 20:48 Freq: Status: Active Protocol: Document 07/26/18 11:15 [facility] (Rec: 07/31/18 13:29 [email or web address]) Posture Evaluation Position Standing Evaluation View Posterior Shoulder Posture (R) Rounded,(R) Forward Palpation Assessment Location One Palpation Location PSIS and sacral NELY. saral base Palpation Findings Soft Tissue Tightness,Muscle Guarding,Tenderness Palpation Details tenderness on either side of the sacrum with muscle guarding, tenderness to palpation at the sacral base and PSIS bilaterally PT-OP-K Range of Motion Start: 08/18/17 20:48 Freq: Status: Active Protocol: Document 10/12/17 09:45 [facility] (Rec: 10/15/17 14:22 [facility] [email or web address]) Lumbar Spine Range of Motion Lumbar Spine Active Testing Position standing Flexion 80 Lateral Flexion Left 65 Lateral Flexion Right 55 Comments decreased overall tightness PT-OP-Q Treatments Start: 08/18/17 20:48 Freq: Status: Active Protocol: Document 11/08/18 15:15 [facility] (Rec: 11/10/18 09:29 [facility] [email or web address]) Therapeutic Exercises Sitting Exercises 2 Sitting Exercise Name seated ball TA facilitation with marching 1 Sitting Exercise Name seated ball pelvic tilts and pelvic circles Standing Exercises 6 Standing Exercise Name tricep extensions Reps/Minutes 2# 2x 10 reps 2 Standing Exercise Name standing rows Reps/Minutes level 2 2x 10 reps 1 Standing Exercise Name standing bicep curls Reps/Minutes 3# 3x10 reps Manual Therapy Treatment Soft Tissue Mobilization 4 Body Location supine suboccipital release and manual STM and stretching to the scalenes Comments upper trap stretch and levator scapula stretch included as well as STM to the upper trapezius B 1 Body Location thoracic paraspinal MFR PT-OP-R Modalities Start: 09/07/17 15:56 Freq: Status: Active Protocol: Document 08/30/18 11:15 [facility] (Rec: 09/04/18 08:41 [facility] [email or web address]) Ultrasound Therapy Treatment Left Upper Back Treatment Duration (minutes) 8 Patient Position Prone Coupling Medium Ultrasound Gel Applicator Size (cm2) 5 Frequency Setting (mHz) 1 Mode Setting Continuous Duty Cycle 100% Intensity Setting (w/cm2) 1.5 Comments US over the left lower thoracic paraspinals PT-OP-T Assessment and Plan Start: 08/18/17 20:48 Freq: Status: Active Protocol: Document 11/08/18 15:15 [facility] (Rec: 11/10/18 09:29 [email or web address] Physical Therapy Assessment Assessment Summary Assessment improving stretches for home. Reviewed UE strengthening exercises today and she did well. She has 2 visits left and will then be DC from PT Physical Therapy Plan Frequency and Duration Frequency of Treatment 1x/Week Duration of Treatment 8 weeks Plan of Care Start Date 09/20/18 Plan of Care End Date 11/20/18 Therapeutic Interventions Therapeutic Interventions Home Exercise Program,Joint Mobilizations,Manual Therapy, Neuromuscular Re-education, Patient/Caregiver Education, Self-Care/Home Management, Therapeutic Exercises Modalities Ultrasound Next Visit Focus/Plan Next Note Type Treatment Note Next Visit Plan continue with stabilization, posture exercises, ROM/ stretches and manual therapy techniques
--- NOTE | 2018-11-10 09:29 | PT.OTN ---
Current Diagnoses Dorsalgia, unspecified (11/08/18) Physical Therapy Treatment Note PT-OP-A Visit Information Start: 08/18/17 20:48 Freq: Status: Active Protocol: Document 11/08/18 15:15 [facility] (Rec: 11/10/18 09:29 [email or web address] Out-Patient Physical Therapy Visit Information Visit Information Visit Type Treatment Note Visit Start Time 15:15 Visit Stop Time 16:00 Total Visit Minutes 45 Visit Number 4 Number of BASE REMOVER Visits 0 PT-OP-B Current Condition Start: 08/18/17 20:48 Freq: Status: Active Protocol: Document 07/26/18 11:15 [facility] (Rec: 07/31/18 13:29 [email or web address]) Current Condition History of Current Condition Onset Date recent onset of sacral/LBP 3 weeks ago Current Complaints alternating left and right sided sacral pain History of Current Condition nasra 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 She was doing well with her home stabilization program and aquatic exercise but recently flared her sacrum and SI joint after doing a abdominal exercise. She has been complaining of SI joint pain since PT-OP-C Subjective Start: 08/18/17 20:48 Freq: Status: Active Protocol: Document 11/08/18 15:15 [facility] (Rec: 11/10/18 09:29 [email or web address] OP-PT Subjective Patient Comments Patient Comments Has been working on postural exercises at home. Did not stretch on foam roll at home today. Wants to review all UE strengthening exercises today PT-OP-F Manual Assessment Start: 08/18/17 20:48 Freq: Status: Active Protocol: Document 07/26/18 11:15 [facility] (Rec: 07/31/18 13:29 [email or web address]) Manual Assessments Soft Tissue Assessment Soft Tissue Mobility Assessment tightness in the piriformis muscle left greater than right , tightness Left ITB Joint Mobility Assessment Joint Mobility Assessment + ASLR test for right SI instability and sacrum is rotated to the right with scoliosis Nasra Enrique is rotated to the left in her upper thoracic spine , right shoulder is forward PT-OP-J Posture/Palpation/Skin Start: 08/18/17 20:48 Freq: Status: Active Protocol: Document 07/26/18 11:15 [facility] (Rec: 07/31/18 13:29 [email or web address]) Posture Evaluation Position Standing Evaluation View Posterior Shoulder Posture (R) Rounded,(R) Forward Palpation Assessment Location One Palpation Location PSIS and sacral NELY. saral base Palpation Findings Soft Tissue Tightness,Muscle Guarding,Tenderness Palpation Details tenderness on either side of the sacrum with muscle guarding, tenderness to palpation at the sacral base and PSIS bilaterally PT-OP-K Range of Motion Start: 08/18/17 20:48 Freq: Status: Active Protocol: Document 10/12/17 09:45 [facility] (Rec: 10/15/17 14:22 [facility] [email or web address]) Lumbar Spine Range of Motion Lumbar Spine Active Testing Position standing Flexion 80 Lateral Flexion Left 65 Lateral Flexion Right 55 Comments decreased overall tightness PT-OP-Q Treatments Start: 08/18/17 20:48 Freq: Status: Active Protocol: Document 11/08/18 15:15 [facility] (Rec: 11/10/18 09:29 [facility] [email or web address]) Therapeutic Exercises Sitting Exercises 2 Sitting Exercise Name seated ball TA facilitation with marching 1 Sitting Exercise Name seated ball pelvic tilts and pelvic circles Standing Exercises 6 Standing Exercise Name tricep extensions Reps/Minutes 2# 2x 10 reps 2 Standing Exercise Name standing rows Reps/Minutes level 2 2x 10 reps 1 Standing Exercise Name standing bicep curls Reps/Minutes 3# 3x10 reps Manual Therapy Treatment Soft Tissue Mobilization 4 Body Location supine suboccipital release and manual STM and stretching to the scalenes Comments upper trap stretch and levator scapula stretch included as well as STM to the upper trapezius B 1 Body Location thoracic paraspinal MFR PT-OP-R Modalities Start: 09/07/17 15:56 Freq: Status: Active Protocol: Document 08/30/18 11:15 [facility] (Rec: 09/04/18 08:41 [facility] [email or web address]) Ultrasound Therapy Treatment Left Upper Back Treatment Duration (minutes) 8 Patient Position Prone Coupling Medium Ultrasound Gel Applicator Size (cm2) 5 Frequency Setting (mHz) 1 Mode Setting Continuous Duty Cycle 100% Intensity Setting (w/cm2) 1.5 Comments US over the left lower thoracic paraspinals PT-OP-T Assessment and Plan Start: 08/18/17 20:48 Freq: Status: Active Protocol: Document 11/08/18 15:15 [facility] (Rec: 11/10/18 09:29 [email or web address] Physical Therapy Assessment Assessment Summary Assessment improving stretches for home. Reviewed UE strengthening exercises today and she did well. She has 2 visits left and will then be DC from PT Physical Therapy Plan Frequency and Duration Frequency of Treatment 1x/Week Duration of Treatment 8 weeks Plan of Care Start Date 09/20/18 Plan of Care End Date 11/20/18 Therapeutic Interventions Therapeutic Interventions Home Exercise Program,Joint Mobilizations,Manual Therapy, Neuromuscular Re-education, Patient/Caregiver Education, Self-Care/Home Management, Therapeutic Exercises Modalities Ultrasound Next Visit Focus/Plan Next Note Type Treatment Note Next Visit Plan continue with stabilization, posture exercises, ROM/ stretches and manual therapy techniques
--- NOTE | 2018-11-14 09:24 | PT.OTN ---
Current Diagnoses Dorsalgia, unspecified (11/13/18) Physical Therapy Treatment Note PT-OP-A Visit Information Start: 08/18/17 20:48 Freq: Status: Active Protocol: Document 11/13/18 15:15 [facility] (Rec: 11/14/18 09:23 [facility] [email or web address]) Out-Patient Physical Therapy Visit Information Visit Information Visit Type Treatment Note Visit Start Time 15:15 Visit Stop Time 16:00 Total Visit Minutes 45 Visit Number 5 Number of WINDOW AND DOOR INSTALLER Visits 0 PT-OP-B Current Condition Start: 08/18/17 20:48 Freq: Status: Active Protocol: Document 07/26/18 11:15 [facility] (Rec: 07/31/18 13:29 [facility] [email or web address]) Current Condition History of Current Condition Onset Date recent onset of sacral/LBP 3 weeks ago Current Complaints alternating left and right sided sacral pain History of Current Condition nasra 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 She was doing well with her home stabilization program and aquatic exercise but recently flared her sacrum and SI joint after doing a abdominal exercise. She has been complaining of SI joint pain since PT-OP-C Subjective Start: 08/18/17 20:48 Freq: Status: Active Protocol: Document 11/13/18 15:15 [facility] (Rec: 11/14/18 09:23 [facility] [email or web address]) OP-PT Subjective Patient Comments Patient Comments Nasra Neff has questions on her home program she would like to review. She notes she has been trying to do all her stretches PT-OP-F Manual Assessment Start: 08/18/17 20:48 Freq: Status: Active Protocol: Document 07/26/18 11:15 [facility] (Rec: 07/31/18 13:29 [facility] [email or web address]) Manual Assessments Soft Tissue Assessment Soft Tissue Mobility Assessment tightness in the piriformis muscle left greater than right , tightness Left ITB Joint Mobility Assessment Joint Mobility Assessment + ASLR test for right SI instability and sacrum is rotated to the right with scoliosis Nasra Enrique is rotated to the left in her upper thoracic spine , right shoulder is forward PT-OP-J Posture/Palpation/Skin Start: 08/18/17 20:48 Freq: Status: Active Protocol: Document 07/26/18 11:15 [facility] (Rec: 07/31/18 13:29 [facility] [email or web address]) Posture Evaluation Position Standing Evaluation View Posterior Shoulder Posture (R) Rounded,(R) Forward Palpation Assessment Location One Palpation Location PSIS and sacral NELY. saral base Palpation Findings Soft Tissue Tightness,Muscle Guarding,Tenderness Palpation Details tenderness on either side of the sacrum with muscle guarding, tenderness to palpation at the sacral base and PSIS bilaterally PT-OP-K Range of Motion Start: 08/18/17 20:48 Freq: Status: Active Protocol: Document 10/12/17 09:45 [facility] (Rec: 10/15/17 14:22 [facility] [email or web address]) Lumbar Spine Range of Motion Lumbar Spine Active Testing Position standing Flexion 80 Lateral Flexion Left 65 Lateral Flexion Right 55 Comments decreased overall tightness PT-OP-Q Treatments Start: 08/18/17 20:48 Freq: Status: Active Protocol: Document 11/13/18 15:15 [facility] (Rec: 11/14/18 09:23 [facility] [email or web address]) Therapeutic Exercises Supine Exercises 2 Supine Exercise Name diaphragmatic breathing Sitting Exercises 2 Sitting Exercise Name seated ball TA facilitation with marching Standing Exercises 6 Standing Exercise Name tricep extensions Reps/Minutes 2# 2x 10 reps Manual Therapy Treatment Soft Tissue Mobilization 2 Body Location lumbar spine paraspinal release Comments worked on releasing the left side of the lumbar paraspinals and Quadratus lumborum 1 Body Location thoracic paraspinal MFR PT-OP-R Modalities Start: 09/07/17 15:56 Freq: Status: Active Protocol: Document 08/30/18 11:15 [facility] (Rec: 09/04/18 08:41 [facility] [email or web address]) Ultrasound Therapy Treatment Left Upper Back Treatment Duration (minutes) 8 Patient Position Prone Coupling Medium Ultrasound Gel Applicator Size (cm2) 5 Frequency Setting (mHz) 1 Mode Setting Continuous Duty Cycle 100% Intensity Setting (w/cm2) 1.5 Comments US over the left lower thoracic paraspinals PT-OP-T Assessment and Plan Start: 08/18/17 20:48 Freq: Status: Active Protocol: Document 11/13/18 15:15 [facility] (Rec: 11/14/18 09:23 [facility] [email or web address]) Physical Therapy Assessment Assessment Summary Assessment pt has one visit left in PT to review ther ex and continue manual work. She is doing a good job with her home stretching program Physical Therapy Plan Frequency and Duration Frequency of Treatment 1x/Week Duration of Treatment 8 weeks Plan of Care Start Date 08/01/19 Plan of Care End Date 11/20/18 Therapeutic Interventions Therapeutic Interventions Home Exercise Program,Joint Mobilizations,Manual Therapy, Neuromuscular Re-education, Patient/Caregiver Education, Self-Care/Home Management, Therapeutic Exercises Modalities Ultrasound Next Visit Focus/Plan Next Note Type Treatment Note Next Visit Plan Review all ther ex as this next visit will be the last scheduled visit
--- NOTE | 2018-11-15 17:26 | PT.OTN ---
Current Diagnoses Dorsalgia, unspecified (11/15/18) Physical Therapy Treatment Note PT-OP-A Visit Information Start: 08/18/17 20:48 Freq: Status: Active Protocol: Document 11/15/18 17:12 [facility] (Rec: 11/15/18 17:26 [facility] [email or web address]) Out-Patient Physical Therapy Visit Information Visit Information Visit Type Treatment Note Visit Start Time 15:15 Visit Stop Time 16:00 Total Visit Minutes 45 Visit Number 6 Number of SHUTTLE ROUTE VEHICLE OPERATOR Visits 0 PT-OP-B Current Condition Start: 08/18/17 20:48 Freq: Status: Active Protocol: Document 07/26/18 11:15 [facility] (Rec: 07/31/18 13:29 [facility] [email or web address]) Current Condition History of Current Condition Onset Date recent onset of sacral/LBP 3 weeks ago Current Complaints alternating left and right sided sacral pain History of Current Condition nasra 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 She was doing well with her home stabilization program and aquatic exercise but recently flared her sacrum and SI joint after doing a abdominal exercise. She has been complaining of SI joint pain since PT-OP-C Subjective Start: 08/18/17 20:48 Freq: Status: Active Protocol: Document 11/15/18 17:12 [facility] (Rec: 11/15/18 17:26 [facility] [email or web address]) OP-PT Subjective Patient Comments Patient Comments Nasra Neff reports she has doing all her exercises at home and going to the pool. She will continue to work on these on her own. PT-OP-F Manual Assessment Start: 08/18/17 20:48 Freq: Status: Active Protocol: Document 07/26/18 11:15 [facility] (Rec: 07/31/18 13:29 [facility] [email or web address]) Manual Assessments Soft Tissue Assessment Soft Tissue Mobility Assessment tightness in the piriformis muscle left greater than right , tightness Left ITB Joint Mobility Assessment Joint Mobility Assessment + ASLR test for right SI instability and sacrum is rotated to the right with scoliosis Nasra Enrique is rotated to the left in her upper thoracic spine , right shoulder is forward PT-OP-J Posture/Palpation/Skin Start: 08/18/17 20:48 Freq: Status: Active Protocol: Document 07/26/18 11:15 [facility] (Rec: 07/31/18 13:29 [facility] [email or web address]) Posture Evaluation Position Standing Evaluation View Posterior Shoulder Posture (R) Rounded,(R) Forward Palpation Assessment Location One Palpation Location PSIS and sacral NELY. saral base Palpation Findings Soft Tissue Tightness,Muscle Guarding,Tenderness Palpation Details tenderness on either side of the sacrum with muscle guarding, tenderness to palpation at the sacral base and PSIS bilaterally PT-OP-K Range of Motion Start: 08/18/17 20:48 Freq: Status: Active Protocol: Document 10/12/17 09:45 [facility] (Rec: 10/15/17 14:22 [facility] [email or web address]) Lumbar Spine Range of Motion Lumbar Spine Active Testing Position standing Flexion 80 Lateral Flexion Left 65 Lateral Flexion Right 55 Comments decreased overall tightness PT-OP-Q Treatments Start: 08/18/17 20:48 Freq: Status: Active Protocol: Document 11/15/18 17:12 [facility] (Rec: 11/15/18 17:26 [facility] [email or web address]) Therapeutic Exercises Other Exercises 6 Other Exercise Name aiden pose 4 Other Exercise Name quadruped pelvic tilts 3 Other Exercise Name quadraped sidebends Manual Therapy Treatment Soft Tissue Mobilization 3 Body Location Bilateral piriformis release 2 Body Location lumbar spine paraspinal release Comments worked on releasing the left side of the lumbar paraspinals and Quadratus lumborum 1 Body Location thoracic paraspinal MFR PT-OP-R Modalities Start: 09/07/17 15:56 Freq: Status: Active Protocol: Document 08/30/18 11:15 [facility] (Rec: 09/04/18 08:41 [facility] [email or web address]) Ultrasound Therapy Treatment Left Upper Back Treatment Duration (minutes) 8 Patient Position Prone Coupling Medium Ultrasound Gel Applicator Size (cm2) 5 Frequency Setting (mHz) 1 Mode Setting Continuous Duty Cycle 100% Intensity Setting (w/cm2) 1.5 Comments US over the left lower thoracic paraspinals PT-OP-T Assessment and Plan Start: 08/18/17 20:48 Freq: Status: Active Protocol: Document 11/15/18 17:12 [facility] (Rec: 11/15/18 17:26 [facility] [email or web address]) Physical Therapy Assessment Assessment Summary Assessment Nasra Neff is doing well with her exercises, she still is experiencing her left sided sacral discomfort which we worked on today. She will be discharged today to a home exercise program. Physical Therapy Plan Frequency and Duration Frequency of Treatment 1x/Week Duration of Treatment 8 weeks Plan of Care Start Date 09/20/18 Plan of Care End Date 11/20/18 Discharge Physical Therapy Discharge Reasons Plateau in Progress Discharge Comments Independent with home exercise program
--- NOTE | 2018-11-15 17:29 | PT.OPDS ---
Current Diagnoses Dorsalgia, unspecified (11/15/18) Visit Care Team Role Provider Type Lan Gomes MD Attending Provider Physician Primary [facility] Provider [facility]ty[facility] Address: [address] [place] [address], [facility] Email: [email or web address] Visit Number Visit Number 6 Discharge Summary PT-OP-B Current Condition Start: 08/18/17 20:48 Freq: Status: Active Protocol: Document 07/26/18 11:15 AMH (Rec: 07/31/18 13:29 AMH [email or web address]) Current Condition History of Current Condition Onset Date recent onset of sacral/LBP 3 weeks ago Current Complaints alternating left and right sided sacral pain History of Current Condition nasra 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 She was doing well with her home stabilization program and aquatic exercise but recently flared her sacrum and SI joint after doing a abdominal exercise. She has been complaining of SI joint pain since PT-OP-C Subjective Start: 08/18/17 20:48 Freq: Status: Active Protocol: Document 11/15/18 17:12 AMH (Rec: 11/15/18 17:26 AMH [email or web address]) OP-PT Subjective Patient Comments Patient Comments Nasra Neff reports she has doing all her exercises at home and going to the pool. She will continue to work on these on her own. PT-OP-F Manual Assessment Start: 08/18/17 20:48 Freq: Status: Active Protocol: Document 07/26/18 11:15 AMH (Rec: 07/31/18 13:29 AMH [email or web address]) Manual Assessments Soft Tissue Assessment Soft Tissue Mobility Assessment tightness in the piriformis muscle left greater than right , tightness Left ITB Joint Mobility Assessment Joint Mobility Assessment + ASLR test for right SI instability and sacrum is rotated to the right with scoliosis Nasra Enrique is rotated to the left in her upper thoracic spine , right shoulder is forward PT-OP-J Posture/Palpation/Skin Start: 08/18/17 20:48 Freq: Status: Active Protocol: Document 07/26/18 11:15 AMH (Rec: 07/31/18 13:29 AMH [email or web address]) Posture Evaluation Position Standing Evaluation View Posterior Shoulder Posture (R) Rounded,(R) Forward Palpation Assessment Location One Palpation Location PSIS and sacral NELY. saral base Palpation Findings Soft Tissue Tightness,Muscle Guarding,Tenderness Palpation Details tenderness on either side of the sacrum with muscle guarding, tenderness to palpation at the sacral base and PSIS bilaterally PT-OP-K Range of Motion Start: 08/18/17 20:48 Freq: Status: Active Protocol: Document 10/12/17 09:45 AMH (Rec: 10/15/17 14:22 AMH [email or web address]) Lumbar Spine Range of Motion Lumbar Spine Active Testing Position standing Flexion 80 Lateral Flexion Left 65 Lateral Flexion Right 55 Comments decreased overall tightness PT-OP-T Assessment and Plan Start: 08/18/17 20:48 Freq: Status: Active Protocol: Document 11/15/18 17:12 AMH (Rec: 11/15/18 17:26 AMH [email or web address]) Physical Therapy Assessment Assessment Summary Assessment Nasra Neff is doing well with her exercises, she still is experiencing her left sided sacral discomfort which we worked on today. She will be discharged today to a home exercise program. Physical Therapy Plan Frequency and Duration Frequency of Treatment 1x/Week Duration of Treatment 8 weeks Plan of Care Start Date 09/20/18 Plan of Care End Date 11/20/18 Discharge Physical Therapy Discharge Reasons Plateau in Progress Discharge Comments Independent with home exercise program
== END 2018-11-30 12:47 | disposition home or self-care (01) ==
LOC: PHYS 15:15
PROVIDERS: PCP Family Medicine; Visit Provider Family Medicine
DX: M54.9 Dorsalgia, unspecified (principal)
CPT/HCPCS: 97035; 97110; 97140; 97161; 97164; 97530; 97535

== ENCOUNTER → 2019-01-11 09:14 | Outpatient (CLI) | payer MEDICARE, OTHER, SELFPAY ==
[2019-01-11 10:43] LABS: Add Manual Diff / Slide Review NO; Basophils Absolute Auto 0 /uL (0-100); Basophils Percent Auto 1.1 % (0-2); Eosinophils Absolute Auto 200 /uL (0-450); Eosinophils Percent Auto 4.2 % (2-4); Hematocrit 37.2 % (36-46); Hemoglobin 12.8 g/dL (12.0-16.0); Lymphocytes Absolute Auto 1600 /uL (1100-4500); Lymphocytes Percent Auto 36.1 % (25-40); Mean Corpuscular HGB Conc 34.4 % (30-36); Mean Corpuscular Hemoglobin 30.1 PG (26-34); Mean Corpuscular Volume 87.7 fL (80-100); Monocytes Absolute Auto 300 /uL (0-900); Monocytes Percent Auto 6.9 % (3-14); Neutrophils Absolute Auto 2200 /uL (1500-7000); Neutrophils Percent Auto 51.7 % (50-75); Platelet Count 220 X10^3/uL (150-400); Red Blood Cell Count 4.24 X10^6/uL (4.0-5.2); Red Cell Distribution Width 13.4 % (11.6-14.8); White Blood Cell Count 4.3 X10^3/uL (4.5-11.0)
[2019-01-11 10:59] LABS: Alanine Aminotransferase 14 IU/L (<35); Albumin 4.2 g/dL (3.5-5.0); Albumin Globulin Ratio 1.5 (1.0-2.8); Alkaline Phosphatase 81 U/L (38-126); Aspartate Aminotransferase 21 IU/L (14-36); Bilirubin Total 0.6 mg/dL (0.2-1.3); Blood Urea Nitrogen 15 mg/dL (7-17); Calcium 9.4 mg/dL (8.4-10.2); Carbon Dioxide 28 mmol/L (22-32); Chloride 101 mmol/L (98-107); Cholesterol 296 mg/dL (140-199); Estimated Glomerular Filt Rate > 60.0 mL/min (>60); Globulin 2.8 g/dL (1.7-4.1); Glucose 93 mg/dL (80-110); HDL Cholesterol 69 mg/dL (40-60); HEMOLYSIS < 15 (0-50); LDL Cholesterol Calculated 206 mg/dL (<100); Magnesium 2.1 mg/dL (1.6-2.3); Potassium 4.1 mmol/L (3.4-5.1); Sodium 138 mmol/L (137-145); Triglycerides 104 mg/dL (35-150)
[2019-01-11 11:15] LABS: Free T4, Direct Thyroxine 0.91 ng/dL (0.78-2.19)
[2019-01-11 11:29] LABS: Thyroid Stimulating Hormone < 0.02 uIU/mL (0.47-4.68)
[2019-01-11 11:32] LABS: Ferritin 19.2 ng/mL (11.1-264)
[2019-01-11 11:46] LABS: Vitamin B12 800 pg/mL (239-931)
== END ==
PROVIDERS: PCP Family Medicine; Visit Provider Family Medicine
DX: D51.9 Vitamin B12 deficiency anemia, unspecified (principal); D64.9 Anemia, unspecified; E03.9 Hypothyroidism, unspecified; E78.5 Hyperlipidemia, unspecified
CPT/HCPCS: 36415; 80053; 80061; 82607; 82728; 83735; 84439; 84443; 85025

== ENCOUNTER 2019-02-06 10:30 | Outpatient (RCR) | payer MEDICARE, OTHER, SELFPAY ==
--- NOTE | 2018-11-09 15:30 | OT.OP.EVAL ---
Addendum entered and electronically signed by Sulema Avalos OT 11/23/18 13:07: Initial evaluation for 11/05/18. Error in [employer]. Original Note: Visit Care Team Role Provider Type Lan Gomes MD Attending Provider Physician Primary Care Provider Specialty: Family Practice Address: [address] [place] [address], [id number] Email: [email or web address] Occupational Therapy Initial Evaluation OT Outpatient Adult Evaluation Start: 11/23/18 12:46 Freq: Status: Active Protocol: Document 11/09/18 15:30 [facility] (Rec: 11/23/18 13:06 [facility] [email or web address]) General Information Visit Start Time 14:30 Visit Stop Time 15:15 Total Visit Minutes 45 Visit Number 03/01 Plan of Care Dates 11/05/18-01/28/19 Insurance Information Medicare Treatment Setting Outpatient Care Note Type Initial Evaluation Referring Physician Lan Gomes MD Reason for Referral Bilateral hand pain Identification Confirmed Yes: Photo ID Identification Confirmed By Patient Therapy Pain Assessment When Pain Assessed Pre-treat Pain Present Pain Reported Right Posterior Shoulder Scale Used 1-2 Posterior Neck Scale Used 1-2/10 Left Hand Intensity 1 Scale Used Numeric (1 - 10) Right Hand Intensity 1 Scale Used Numeric (1 - 10) Observations Appearance/Deformities Yes Joint Protection Fair Muscle Testing Left Back Roll Lathe Operator Dynamometer II 32.0 Right Back Roll Lathe Operator Dynamometer II 31.7 Goals Objective Measurements MMT: Right wrist flexion 4/5; R wrist extension 4/5; left wrist flexion 4/5; left wrist extension 4/5. (+) utilization of [id number] rigid volar splint L secondary to carpal tunnel symptoms. (+) use of tgbbvamo-vogp-eoh counter thumb brace for L. Utilizes both braces in conjunction. (+) mild ulnar drift noted primarily of the L . Denied education re: basic joint protection principles and/or methods to manage presenting symptoms (e.g., pain/swelling). Treatment Initiated home exercise program on this treatment date . Instructed in basic joint protection principles. Security Control Center Operator Goals 1. Patient will be modified independent with distal UE strengthening exercises utilizing provided written and visual instructions from therapist. 2. Patient will verbalize 100 % understanding of joint protection principles. 3. Patient will be able to verbally identify 3 different strategies to address presenting symptoms ( inflammation, stiffness, pain/ discomfort) (e.g., paraffin bath, ROM). Assessment/Plan Patient Response Good Rehabilitation Potential Good Impairments Identified ADLs,Body Mechanics, Coordination/Dexterity, Flexibility,Functional Activities,Motor Function,Pain ,Weakness,Range of Motion, Recreational Activities, Meaningful Activities, Stiffness,Soft Tissue Mobility Treatment Assessment Patient is a 73 year-old female who was referred to outpatient OT by PCP, Lan Gomes MD, secondary to bilateral hand pain. PMH: Significant for arthritis; back pain; low blood pressure; bruising easily; neck pain; osteopenia; thyroid disorder; varicose veins; and impaired vision (wears contacts). Evaluation findings: (+) mild ulnar drift L; joint deformities of bilateral thumbs; mild finger pain/ bilaterally; h/o carpal tunnel symptoms primarily of the L UE; (+) use of over-the- counter splint for L UE secondary to nerve compression ; (+) use of the over-the- counter non-rigid thumb splint for thumb support; decreased pad-to-pad contact bilaterally - compensatory motor pattern towards lateral pad of 2nd digit bilaterally; 3rd and 4th digits present with increased pain discomfort in the morning of the left hand; decreased distal UE strength. Outpatient OT is recommended to address identified areas and maximize patient's success with active engagement in meaningful activities in a variety of environments. Home Exercise Program Please refer to treatment section of note for specific details. Reviewed with Patient Goals,Progress Being Made,Home Exercise Program Patient Understanding Good Comment 12 weeks Treatment Frequency Once a Week Therapeutic Contents Active Range of Motion, Adaptive Equipment Education, Client Education,Cognitive Skills Development,Home Exercise Program,Joint Protection,Manual Therapy, Education,Neurodevelopment Treatment,Neuromuscular Re- Education,Self-Care,Splinting, Stretching/Flexibility Activities,Therapeutic Activities,Therapeutic Exercises,Modalities,Sensory Re-education Modalities As Needed,As Prescribed Types of Modalities Contrast Bath,E-Stim, Functional Stimulation (FES), Ice Massage,T.E.N. Stimulation ,TENS Placement/Application, Ultrasound,Other Additional Types of Modalities Paraffin Patient Instruction Home Exercise Program,Plan of Care,Questions/Concerns,Other
--- NOTE | 2018-11-13 15:30 | OT.OP.TRT ---
Visit Care Team Role Provider Type Lan Gomes MD Attending Provider Physician Primary Care Provider Specialty: Family Practice Address: [address] [place] [address], [id number] Email: [email or web address] Occupational Therapy Treatment Note OT Outpatient Treatment Note - Adult Start: 11/23/18 12:46 Freq: Status: Active Protocol: Document 11/13/18 15:30 [facility] (Rec: 11/23/18 13:16 [facility] [email or web address]) OT Outpatient Adult Treatment Note Session Time Visit Start Time 14:30 Visit Stop Time 15:15 Total Visit Minutes 45 Visit Information Visit Number 04/01 Plan of Care Dates 11/05/18-01/28/19 Insurance Information Medicare Setting Treatment Setting Outpatient Care Visit Type Note Type Treatment Note General Information General Information Patient is a 73 year-old female who was referred to outpatient OT by PCP, Lan Gomes MD, secondary to bilateral hand pain. PMH: Significant for arthritis; back pain; low blood pressure; bruising easily; neck pain; osteopenia; thyroid disorder; varicose veins; and impaired vision (wears contacts). - Subjective Identification Type Name Identification Reconciled With Medical Record Observations I was wondering if there is a brace I wear at night for this per Yaritza Neff in re: ulnar drift. Chief Complaint(s) Restricts Patient/Caregiver Compliance with Home Good Exercise Program - Objective Objective Measurements Mild ulnar drift. (+) bilateral intrinsic stiffness; L > R. Carousel Operator Goals 1. Patient will be modified independent with distal UE strengthening exercises utilizing provided written and visual instructions from therapist. 2. Patient will verbalize 100 % understanding of joint protection principles. 3. Patient will be able to verbally identify 3 different strategies to address presenting symptoms ( inflammation, stiffness, pain/ discomfort) (e.g., paraffin bath, ROM). - Exercises 2 Descriptor HEP/POC/Education. Reviewed joint protection principles. Recommended night splint secondary to mild ulnar drift of L hand; will fax PCP requesting referral to [facility] given that this outpatient clinic does not provide custom splints at this time. Recommended carry-over of strengthening w/ single rubberband. Patient denied questions and/or need for visual and/or written instructions. Complexity Upgraded 1 Descriptor Strengthening of digits out of ulnar drift pattern ( utilization of rubberband). Side Left Body Position Seated Sets 1 Repetitions 10 Complexity Upgraded - Assessment Patient Response to Treatment Good Rehab Potential Good Impairments Identified ADLs,Body Mechanics, Coordination/Dexterity, Flexibility,Functional Activities,Pain,Range of Motion,Recreational Activities ,Meaningful Activities, Stiffness,Swelling,Soft Tissue Mobility,Motor Planning Assessment of Improvement Advanced HEP on this treatment date; recommended ulnar drift brace for left hand/digits. Discussed pursuing custom-made splint given additional presenting symptoms (thumb pain/changes in thumb presentation/alignment and carpal tunnel syndrome). Will fax PCP requesting referral. Recommend reviewing HEP. Home Exercise Program Please refer to treatment section of note for specific details. Reviewed with Patient/Caregiver Goals,Progress Being Made,Home Exercise Program Patient/Caregiver Understanding Good - Plan Therapy Recommendations Continue with Current Program, Advance per Rehabilitation Protocol Other Referrals [facility]
--- NOTE | 2018-11-21 15:58 | OT.OP.TRT ---
Visit Care Team Role Provider Type Lan Gomes MD Attending Provider Physician Primary Care Provider Specialty: Family Practice Address: [address] [place] [address], [id number] Email: [email or web address] Occupational Therapy Treatment Note OT Outpatient Treatment Note - Adult Start: 11/23/18 12:46 Freq: Status: Active Protocol: Document 11/21/18 15:50 AMS (Rec: 11/23/18 15:58 AMS [email or web address]) OT Outpatient Adult Treatment Note Session Time Visit Start Time 14:30 Visit Stop Time 15:15 Total Visit Minutes 45 Visit Information Visit Number 04/29 Plan of Care Dates 11/05/18-01/28/19 Insurance Information Medicare Setting Treatment Setting Outpatient Care Visit Type Note Type Treatment Note General Information General Information Patient is a 73 year-old female who was referred to outpatient OT by PCP, Lan Gomes MD, secondary to bilateral hand pain. PMH: Significant for arthritis; back pain; low blood pressure; bruising easily; neck pain; osteopenia; thyroid disorder; varicose veins; and impaired vision (wears contacts). - Subjective Identification Type Name Identification Reconciled With Medical Record Observations I was wondering if I could try the wax treatment per Yaritza Neff. I was wondering if we could adapt these splints or if there are other options re: splint options to manage mild ulnar drift. Dr. Gomes's nurse called me earlier today about the referral. Chief Complaint(s) Restricts Patient/Caregiver Compliance with Home Good Exercise Program - Objective Objective Measurements Mild ulnar drift. (+) bilateral intrinsic stiffness; L > R. Half-Way Goals 1. Patient will be modified independent with distal UE strengthening exercises utilizing provided written and visual instructions from therapist. 2. Patient will verbalize 100 % understanding of joint protection principles. 3. Patient will be able to verbally identify 3 different strategies to address presenting symptoms ( inflammation, stiffness, pain/ discomfort) (e.g., paraffin bath, ROM). - Exercises 3 Descriptor Tendon glides bilateral; wrist passive range of motion exercises bilateral 2 Descriptor HEP/POC/Education. Provided information re: investment in [id number] splints to address mild ulnar drift of L hand. Discussed various options including one over-the -counter splint that has rigid volar wrist component that could assist w/ positioning of L wrist in slight extension ( d/t carpal tunnel). Education was provided re: use and benefits of personal paraffin bath; discussed ways to manage wrapping distal UEs when assist not available in the home. Reviewed home program w/ focus on tip-to-tip, strengthening laterally of digits w/ rubberbands, tendon glides, and basic wrist stretches. Discussed possibility of use of more rigid splint d/t L thumb pain; discussed [id number]-[id number] options. Patient denied questions. 1 Descriptor Strengthening of digits out of ulnar drift pattern ( utilization of rubberband). Side Left Body Position Seated Sets 1 Repetitions 10 Complexity Upgraded - Assessment Patient Response to Treatment Good Rehab Potential Good Impairments Identified ADLs,Body Mechanics, Coordination/Dexterity, Flexibility,Functional Activities,Pain,Range of Motion,Recreational Activities ,Meaningful Activities, Stiffness,Swelling,Soft Tissue Mobility,Motor Planning Assessment of Improvement Decreased carry-over of strengthening out of ulnar drift pattern w/ utilization of small rubberband; discussed [id number]-mtv-[id number] options to address mild ulnar drift. Discussed purpose of ulnar drift splint. Discussed exploring additional options for more support of thumb given increasing c/o discomfort in left thumb; over -the-counter options were discussed. Education was completed re: use/benefits of personal paraffin bath. Yaritza Neff will be on vacation; therapist to follow-up upon her return. Home Exercise Program Please refer to treatment section of note for specific details. Reviewed with Patient/Caregiver Goals,Progress Being Made,Home Exercise Program Patient/Caregiver Understanding Good - Plan Therapy Recommendations Continue with Current Program, Advance per Rehabilitation Protocol
--- NOTE | 2018-12-13 15:30 | OT.OP.TRT ---
Visit Care Team Role Provider Type Lan Gomes MD Attending Provider Physician Primary Care Provider Specialty: Family Practice Address: [address] [place] [address], [id number] Email: [email or web address] Occupational Therapy Treatment Note OT Outpatient Treatment Note - Adult Start: 11/23/18 12:46 Freq: Status: Active Protocol: Document 12/13/18 15:30 AMS (Rec: 12/18/18 09:33 AMS [email or web address]) OT Outpatient Adult Treatment Note Session Time Visit Start Time 14:30 Visit Stop Time 15:15 Total Visit Minutes 45 Visit Information Visit Number 05/30 Plan of Care Dates 11/05/18-01/28/19 Insurance Information Medicare Setting Treatment Setting Outpatient Care Visit Type Note Type Treatment Note General Information General Information Patient is a 73 year-old female who was referred to outpatient OT by PCP, Lan Gomes MD, secondary to bilateral hand pain. PMH: Significant for arthritis; back pain; low blood pressure; bruising easily; neck pain; osteopenia; thyroid disorder; varicose veins; and impaired vision (wears contacts). - Subjective Identification Type Name Identification Reconciled With Medical Record Observations I was wondering if I could try the wax treatment per Yaritza Neff. Chief Complaint(s) Restricts Patient/Caregiver Compliance with Home Good Exercise Program - Objective Objective Measurements Mild ulnar drift. (+) bilateral intrinsic stiffness; L > R. Manufacturer Agent Goals 1. Patient will be modified independent with distal UE strengthening exercises utilizing provided written and visual instructions from therapist. 2. Patient will verbalize 100 % understanding of joint protection principles. 3. Patient will be able to verbally identify 3 different strategies to address presenting symptoms ( inflammation, stiffness, pain/ discomfort) (e.g., paraffin bath, ROM). - Treatment 1 Descriptor Paraffin bath. B hands/wrists. x 10 minutes. Skin intact pre - and post-treatment. Denied pain status post treatment; (+ ) response to heat/warmth to hands. Exercises 3 Descriptor Tendon glides bilateral; wrist passive range of motion exercises bilateral 2 Descriptor HEP/POC/Education. Modified home strengthening program relative to digits; instructed in isometric holds versus use of single rubberband w/ strengthening radially. Discussed use of joint protection principles w/ execution of these digit strengthening exercises. Reviewed in treatment session for each digit. Reviewed tendon gliding and passive wrist stretches and active flexion of digits at TT. Discussion re: combining postural and distal UE body mechanics. Patient denied questions. - Assessment Patient Response to Treatment Good Rehab Potential Good Impairments Identified ADLs,Body Mechanics, Coordination/Dexterity, Flexibility,Functional Activities,Pain,Range of Motion,Recreational Activities ,Meaningful Activities, Stiffness,Swelling,Soft Tissue Mobility,Motor Planning Assessment of Improvement Reviewed home exercise program ; modified strengthening HEP d /t difficulties encountered w/ use of rubberband. Focus on isometric strengthening while following joint protection principles. Preference for isometric strengthening versus rubberband. (+) response to heat relative to use of paraffin bath. Recommend reviewing HEP at time of next treatment session to support carry-over; consider additional strengthening options relative to bilateral thumbs. Home Exercise Program Please refer to treatment section of note for specific details. Reviewed with Patient/Caregiver Goals,Progress Being Made,Home Exercise Program Patient/Caregiver Understanding Good - Plan Therapy Recommendations Continue with Current Program, Advance per Rehabilitation Protocol
--- NOTE | 2018-12-26 12:30 | OT.OP.TRT ---
Visit Care Team Role Provider Type Lan Gomes MD Attending Provider Physician Primary Care Provider Specialty: Family Practice Address: [address] [place] [address], [id number] Email: [email or web address] Occupational Therapy Treatment Note OT Outpatient Treatment Note - Adult Start: 11/23/18 12:46 Freq: Status: Active Protocol: Document 12/26/18 12:30 AMS (Rec: 01/14/19 09:26 AMS [email or web address]) OT Outpatient Adult Treatment Note Session Time Visit Start Time 10:30 Visit Stop Time 11:15 Total Visit Minutes 45 Visit Information Visit Number 06/29 Plan of Care Dates 11/05/18-01/28/19 Insurance Information Medicare Setting Treatment Setting Outpatient Care Visit Type Note Type Treatment Note General Information General Information Patient is a 73 year-old female who was referred to outpatient OT by PCP, Lan Gomes MD, secondary to bilateral hand pain. PMH: Significant for arthritis; back pain; low blood pressure; bruising easily; neck pain; osteopenia; thyroid disorder; varicose veins; and impaired vision (wears contacts). - Subjective Identification Type Name Identification Reconciled With Medical Record Observations I was wondering if we could try the wax treatment? per Yaritza Neff. Chief Complaint(s) Restricts Patient/Caregiver Compliance with Home Good Exercise Program - Objective Objective Measurements Mild ulnar drift. (+) bilateral intrinsic stiffness; L > R. Nursing Home Goals 1. Patient will be modified independent with distal UE strengthening exercises utilizing provided written and visual instructions from therapist. 2. Patient will verbalize 100 % understanding of joint protection principles. 3. Patient will be able to verbally identify 3 different strategies to address presenting symptoms ( inflammation, stiffness, pain/ discomfort) (e.g., paraffin bath, ROM). - Treatment 1 Descriptor Paraffin bath. B hands/wrists. x 10 minutes. Skin intact pre - and post-treatment. (+) response to heat/warmth to hands. Exercises 3 Descriptor Tendon glides; wrist passive range of motion exercises 2 Descriptor HEP/POC/Education. Reviewed home exercise program. Patient denied questions. - Assessment Patient Response to Treatment Good Rehab Potential Good Impairments Identified ADLs,Body Mechanics, Coordination/Dexterity, Flexibility,Functional Activities,Pain,Range of Motion,Recreational Activities ,Meaningful Activities, Stiffness,Swelling,Soft Tissue Mobility,Motor Planning Assessment of Improvement Reviewed home exercise program . Recommend reviewing HEP at time of next treatment session to support carry-over; consider additional strengthening options for distal UEs/hands/digits. Home Exercise Program Please refer to treatment section of note for specific details. Reviewed with Patient/Caregiver Goals,Progress Being Made,Home Exercise Program Patient/Caregiver Understanding Good - Plan Therapy Recommendations Continue with Current Program, Advance per Rehabilitation Protocol
--- NOTE | 2019-01-09 11:30 | OT.OP.TRT ---
Visit Care Team Role Provider Type Lan Gomes MD Attending Provider Physician Primary Care Provider Specialty: Family Practice Address: [address] [place] [address], [id number] Email: [email or web address] Occupational Therapy Treatment Note OT Outpatient Treatment Note - Adult Start: 11/23/18 12:46 Freq: Status: Active Protocol: Document 01/09/19 11:30 AMS (Rec: 01/14/19 10:59 AMS [email or web address]) OT Outpatient Adult Treatment Note Session Time Visit Start Time 10:30 Visit Stop Time 11:15 Total Visit Minutes 45 Visit Information Visit Number 07/30 Plan of Care Dates 11/05/18-01/28/19 Insurance Information Medicare Setting Treatment Setting Outpatient Care Visit Type Note Type Treatment Note General Information General Information Patient is a 73 year-old female who was referred to outpatient OT by PCP, Lan Gomes MD, secondary to bilateral hand pain. PMH: Significant for arthritis; back pain; low blood pressure; bruising easily; neck pain; osteopenia; thyroid disorder; varicose veins; and impaired vision (wears contacts). - Subjective Identification Type Name Identification Reconciled With Medical Record Observations I didn't end up getting any splints per Rama in re: appt w/ [facility]. She did show me some things for strengthening my hands using a ball. Are there any other things you can think of?. Chief Complaint(s) Restricts Patient/Caregiver Compliance with Home Good Exercise Program - Objective Objective Measurements Mild ulnar drift. (+) bilateral intrinsic stiffness; L > R. Doughnut Icer Goals 1. Patient will be modified independent with distal UE strengthening exercises utilizing provided written and visual instructions from therapist. 2. Patient will verbalize 100 % understanding of joint protection principles. 3. Patient will be able to verbally identify 3 different strategies to address presenting symptoms ( inflammation, stiffness, pain/ discomfort) (e.g., paraffin bath, ROM). - Treatment 1 Descriptor Paraffin bath. B hands/wrists. x 10 minutes. Skin intact pre - and post-treatment. (+) response to heat/warmth to hands. Exercises 3 Descriptor Tendon glides; wrist passive range of motion exercises 2 Descriptor HEP/POC/Education. Initiated isometric strengthening exercises w/ use of stress ball (wrist flex, wrist RD, wrist UD, wrist ext); focus on avoiding positions of deformity with strengthening exercises. Initiated finger strengthening w/ use of stress ball (pincers, thumb palmar abd). Initiated digit extension strengthening w/ use of cylindrical object and rubberband; initiated thumb strengthening w/ cylindrical object for positioning. Reviewed all exercises in treatment session; Yaritza Neff denied questions. - Assessment Patient Response to Treatment Good Rehab Potential Good Impairments Identified ADLs,Body Mechanics, Coordination/Dexterity, Flexibility,Functional Activities,Pain,Range of Motion,Recreational Activities ,Meaningful Activities, Stiffness,Swelling,Soft Tissue Mobility,Motor Planning Assessment of Improvement Upgraded home exercise program . Recommend reviewing HEP at time of next treatment session to support carry-over; consider additional strengthening options for distal UEs/hands/digits. Home Exercise Program Please refer to treatment section of note for specific details. Reviewed with Patient/Caregiver Goals,Progress Being Made,Home Exercise Program Patient/Caregiver Understanding Good - Plan Therapy Recommendations Continue with Current Program, Advance per Rehabilitation Protocol
--- NOTE | 2019-02-06 11:30 | OT.OP.TRT ---
Visit Care Team Role Provider Type Lan Gomes MD Attending Provider Physician Primary Care Provider Specialty: Family Practice Address: [address] [place] [address], [id number] Email: [email or web address] Occupational Therapy Treatment Note OT Outpatient Treatment Note - Adult Start: 11/23/18 12:46 Freq: Status: Active Protocol: Document 02/06/19 11:30 AMS (Rec: 02/08/19 09:42 AMS [email or web address]) OT Outpatient Adult Treatment Note Session Time Visit Start Time 10:30 Visit Stop Time 11:15 Total Visit Minutes 45 Visit Information Visit Number 03/01 Plan of Care Dates 01/28/19-04/22/19 Insurance Information Medicare Setting Treatment Setting Outpatient Care Visit Type Note Type Treatment Note General Information General Information Patient is a 73 year-old female who was referred to outpatient OT by PCP, Lan Gomes MD, secondary to bilateral hand pain. PMH: Significant for arthritis; back pain; low blood pressure; bruising easily; neck pain; osteopenia; thyroid disorder; varicose veins; and impaired vision (wears contacts). - Subjective Identification Type Name Identification Reconciled With Medical Record Observations Narcisa ended up giving me these 2 oval-8 rings and this other hand/wrist splint for this hand per Yaritza Neff. Chief Complaint(s) Restricts Patient/Caregiver Compliance with Home Good Exercise Program - Objective Objective Measurements Mild ulnar drift. (+) bilateral intrinsic stiffness; L > R. Solutions Development Analyst Goals 1. Patient will be modified independent with distal UE strengthening exercises utilizing provided written and visual instructions from therapist. 01/28/19= 75% met 2. Patient will be able to verbally identify 3 different strategies to address presenting symptoms ( inflammation, stiffness, pain/ discomfort) (e.g., paraffin bath, ROM). GOALS MET Verbalizes 100% understanding of joint protection principles . *MET 02/06/19 - Treatment 1 Descriptor Paraffin bath. B hands/wrists. x 10 minutes. Skin intact pre - and post-treatment. (+) response to heat/warmth to hands. Exercises 3 Descriptor Tendon glides; wrist passive range of motion exercises 2 Descriptor HEP/POC/Education. Reviewed HEP. Discussed options to address discomfort reported at 3rd MCPJ dorsally w/ extensor tendon sliding ulnarly with flexion and extension of digits; wearing oval-8 ring on 3rd digit to limit flexion during night and frequently during the day. Discomfort also reported in the 4th digit . Yaritza Neff denied questions. - Assessment Patient Response to Treatment Good Rehab Potential Good Assessment of Improvement Yaritza Neff has demonstrated progress over the last certification period in the areas of joint protection, maintaining available ROM of digits, gentle strengthening for the digits and wrists, and methods to address swelling/ discomfort. Yaritza Neff is currently utilizing 2 oval-8 rings, L edema glove, and L night time splint which is currently not irritating/ causing L thumb pain. Yaritza Neff continues to have discomfort primarily of the 3rd MCPJ of the L hand with active flexion and extension of the digits with the extensor tendon sliding ulnarly w/ ROM; she is currently wearing oval-8 ring and recommended use throughout the day was recommended. She is also complaining of discomfort of the 4th MCPJ; however, focus in on 3rd digit discomfort. Continued outpatient OT is recommended to address presenting pain/discomfort of the digits and progress light strengthening as tolerated. Home Exercise Program Please refer to treatment section of note for specific details. Reviewed with Patient/Caregiver Goals,Progress Being Made,Home Exercise Program Patient/Caregiver Understanding Good - Plan Therapy Recommendations Continue with Current Program, Advance per Rehabilitation Protocol Comment 12 weeks Comment 1 x every 2 to 3 weeks Therapeutic Contents Active Range of Motion, Adaptive Equipment Education, Client Education,Cognitive Skills Development,Functional Activities,Home Exercise Program,Joint Protection, Manual Therapy,Education, Neurodevelopment Treatment, Neuromuscular Re-Education, Self-Care,Stretching/ Flexibility Activities, Therapeutic Activities, Therapeutic Exercises, Modalities Types of Modalities Contrast Bath,E-Stim, Functional Stimulation (FES), Ice Massage,T.E.N. Stimulation ,TENS Placement/Application, Ultrasound Additional Types of Modalities Paraffin; heat
--- NOTE | 2019-04-29 14:40 | OT.OP.DC ---
Visit Care Team Role Provider Type Lan Gomes MD Attending Provider Physician Primary Care Provider Address: [address] [place] [address], [id number] Email: [email or web address] OT Outpatient OT Outpatient Adult Evaluation Start: 11/23/18 12:46 Freq: Status: Active Protocol: Document 11/09/18 15:30 AMS (Rec: 11/23/18 13:06 AMS [email or web address]) General Information Session Time Visit Start Time 14:30 Visit Stop Time 15:15 Total Visit Minutes 45 Visit Information Visit Number 03/01 Plan of Care Dates 11/05/18-01/28/19 Insurance Information Medicare Setting Treatment Setting Outpatient Care Visit Type Note Type Initial Evaluation Referral Referring Physician Lan Gomes MD Reason for Referral Bilateral hand pain Identification Identification Confirmed Yes: Photo ID Identification Confirmed By Patient Therapy Pain Assessment Pain When Pain Assessed Pre-treat Pain Present Pain Present Pain Reported Location Right Posterior Shoulder Scale Used 1-2 Posterior Neck Scale Used 1-2/10 Left Hand Intensity 1 Scale Used Numeric (1 - 10) Right Hand Intensity 1 Scale Used Numeric (1 - 10) Observations Appearance/Deformities Appearance/Deformities Yes Joint Protection Joint Protection Fair Muscle Testing Card Hand/Hand Strength Left Card Hand Dynamometer II 32.0 Right Card Hand Dynamometer II 31.7 Goals Objective Measurements Objective Measurements MMT: Right wrist flexion 4/5; R wrist extension 4/5; left wrist flexion 4/5; left wrist extension 4/5. (+) utilization of [id number] rigid volar splint L secondary to carpal tunnel symptoms. (+) use of [id number] counter thumb brace for L. Utilizes both braces in conjunction. (+) mild ulnar drift noted primarily of the L . Denied education re: basic joint protection principles and/or methods to manage presenting symptoms (e.g., pain/swelling). Treatment Treatment Initiated home exercise program on this treatment date . Instructed in basic joint protection principles. Fpc Goals Fpc Goals 1. Patient will be modified independent with distal UE strengthening exercises utilizing provided written and visual instructions from therapist. 2. Patient will verbalize 100 % understanding of joint protection principles. 3. Patient will be able to verbally identify 3 different strategies to address presenting symptoms ( inflammation, stiffness, pain/ discomfort) (e.g., paraffin bath, ROM). Assessment/Plan Assessment Patient Response Good Rehabilitation Potential Good Impairments Identified ADLs,Body Mechanics, Coordination/Dexterity, Flexibility,Functional Activities,Motor Function,Pain ,Weakness,Range of Motion, Recreational Activities, Meaningful Activities, Stiffness,Soft Tissue Mobility Treatment Assessment Patient is a 73 year-old female who was referred to outpatient OT by PCP, Lan Gomes MD, secondary to bilateral hand pain. PMH: Significant for arthritis; back pain; low blood pressure; bruising easily; neck pain; osteopenia; thyroid disorder; varicose veins; and impaired vision (wears contacts). Evaluation findings: (+) mild ulnar drift L; joint deformities of bilateral thumbs; mild finger pain/ bilaterally; h/o carpal tunnel symptoms primarily of the L UE; (+) use of over-the- counter splint for L UE secondary to nerve compression ; (+) use of the over-the- counter non-rigid thumb splint for thumb support; decreased pad-to-pad contact bilaterally - compensatory motor pattern towards lateral pad of 2nd digit bilaterally; 3rd and 4th digits present with increased pain discomfort in the morning of the left hand; decreased distal UE strength. Outpatient OT is recommended to address identified areas and maximize patient's success with active engagement in meaningful activities in a variety of environments. Home Exercise Program Please refer to treatment section of note for specific details. Reviewed with Patient Goals,Progress Being Made,Home Exercise Program Patient Understanding Good Plan Comment 12 weeks Treatment Frequency Once a Week Therapeutic Contents Active Range of Motion, Adaptive Equipment Education, Client Education,Cognitive Skills Development,Home Exercise Program,Joint Protection,Manual Therapy, Education,Neurodevelopment Treatment,Neuromuscular Re- Education,Self-Care,Splinting, Stretching/Flexibility Activities,Therapeutic Activities,Therapeutic Exercises,Modalities,Sensory Re-education Modalities As Needed,As Prescribed Types of Modalities Contrast Bath,E-Stim, Functional Stimulation (FES), Ice Massage,T.E.N. Stimulation ,TENS Placement/Application, Ultrasound,Other Additional Types of Modalities Paraffin Patient Instruction Home Exercise Program,Plan of Care,Questions/Concerns,Other Sensory Assessment Sensory Profile2 Functional Wrist/Hand Scan Hand Side OT Outpatient Treatment Note - Adult Start: 11/23/18 12:46 Freq: Status: Active Protocol: Document 04/29/19 14:38 AMS (Rec: 04/29/19 14:40 AMS [email or web address]) OT Outpatient Adult Treatment Note Visit Information Visit Number 03/01 Plan of Care Dates 01/28/19-04/22/19 Insurance Information Medicare Setting Treatment Setting Outpatient Care Visit Type Note Type Discharge Summary General Information General Information Patient is a 73 year-old female who was referred to outpatient OT by PCP, Lan Gomes MD, secondary to bilateral hand pain. PMH: Significant for arthritis; back pain; low blood pressure; bruising easily; neck pain; osteopenia; thyroid disorder; varicose veins; and impaired vision (wears contacts). - Subjective Observations Pt has not been seen by outpatient OT since 02/06/2019 ; given that patient has not been seen by OT in >30+ days and POC 04/22/19 it is recommended that pt be d/c from OT at this time. 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 Patient will be modified independent with distal UE strengthening exercises utilizing provided written and visual instructions from therapist. 01/28/19= 75% met 2. Patient will be able to verbally identify 3 different strategies to address presenting symptoms ( inflammation, stiffness, pain/ discomfort) (e.g., paraffin bath, ROM). GOALS MET Verbalizes 100% understanding of joint protection principles . *MET 02/06/19 - - Assessment Assessment of Improvement Pt has not been seen by outpatient OT since 02/06/2019 ; given that patient has not been seen by OT in >30+ days and POC 04/22/19 it is recommended that pt be d/c from OT at this time. - Plan Therapy Recommendations Discharge from Occupational Therapy
== END 2019-04-30 13:16 ==
LOC: OT 10:30
PROVIDERS: PCP Family Medicine; Visit Provider Family Medicine
DX: M79.642 Pain in left hand (principal)
CPT/HCPCS: 97018; 97110; 97165; 97530

== ENCOUNTER → 2019-11-30 10:36 | Outpatient (CLI) | payer MEDICARE, OTHER, SELFPAY ==
[2019-11-30 11:58] LABS: Alanine Aminotransferase 15 IU/L (<35); Albumin 4.3 g/dL (3.5-5.0); Albumin Globulin Ratio 1.4 (1.0-2.8); Alkaline Phosphatase 76 U/L (38-126); Aspartate Aminotransferase 21 IU/L (14-36); BUN Creatinine Ratio 21.8 (6-22); Bilirubin Total 0.5 mg/dL (0.2-1.3); Blood Urea Nitrogen 12 mg/dL (7-17); Calcium 8.8 mg/dL (8.4-10.2); Carbon Dioxide 29 mmol/L (22-32); Chloride 100 mmol/L (98-107); Cholesterol 288 mg/dL (140-199); Estimated Glomerular Filt Rate > 60.0 mL/min (>60); Globulin 3.1 g/dL (1.7-4.1); Glucose 100 mg/dL (80-110); HDL Cholesterol 73 mg/dL (40-60); HEMOLYSIS < 15 (0-50); LDL Cholesterol Calculated 198 mg/dL (<100); Magnesium 2.3 mg/dL (1.6-2.3); Potassium 3.8 mmol/L (3.4-5.1); Sodium 135 mmol/L (137-145); Total Protein 7.4 g/dL (6.3-8.2); Triglycerides 86 mg/dL (35-150)
[2019-11-30 12:23] LABS: TSH w/ Reflex to FT4 < 0.02 uIU/mL (0.47-4.68)
[2019-11-30 12:26] LABS: Ferritin 30 ng/mL (11-264)
[2019-11-30 12:40] LABS: Vitamin B12 864 pg/mL (239-931)
[2019-11-30 15:52] LABS: Free T4, Direct Thyroxine 0.96 ng/dL (0.78-2.19)
[2019-12-02 21:51] LABS: Zinc 111 ug/dL (56-134)
== END ==
PROVIDERS: PCP Family Medicine; Referring Provider Family Medicine; Visit Provider Family Medicine
DX: D51.9 Vitamin B12 deficiency anemia, unspecified (principal); D64.9 Anemia, unspecified; E03.9 Hypothyroidism, unspecified; E55.9 Vitamin D deficiency, unspecified; E78.2 Mixed hyperlipidemia
CPT/HCPCS: 36415; 80053; 80061; 82607; 82728; 83735; 84439; 84443; 84630

== ENCOUNTER → 2020-02-19 14:06 | Outpatient (CLI) | payer MEDICARE, OTHER, SELFPAY | PROVIDERS: PCP Family Medicine; Referring Provider Family Medicine; Visit Provider Family Medicine | DX: M85.852 Other specified disorders of bone density and structure, left thigh (principal); Z78.0 Asymptomatic menopausal state | CPT/HCPCS: 77080 ==

== ENCOUNTER → 2020-03-06 16:21 | Outpatient (CLI) | payer MEDICARE, OTHER, SELFPAY ==
--- NOTE | 2020-03-06 16:23 | DI.MG.S_ITS ---
BILATERAL DIGITAL SCREENING MAMMOGRAM 3D/2D WITH CAD: 03/06/2020 CLINICAL: Routine screening. Comparison is made to exams dated: 02/02/2016 mammogram and 09/01/2007 mammogram - [facility]. There are scattered fibroglandular elements in both breasts. Current study was also evaluated with a Computer Aided Detection (CAD) system. No significant masses, calcifications, or other findings are seen in either breast. There has been no significant interval change. IMPRESSION: NEGATIVE There is no mammographic evidence of malignancy. A 1 year screening mammogram is recommended. This exam was interpreted at Station ID: [id number]. NOTE: For mammograms, a report in lay terms will be sent to the patient. Approximately 15% of breast malignancies will not be visualized mammographically. In the management of a palpable breast mass, a negative mammogram must not discourage biopsy of a clinically suspicious lesion. Electronically Signed By: Puneet [email or web address]:03/06/2020 18:52:10 letter sent: Normal Exam ACR BI-RADS Category 1: Negative [id number]
== END ==
PROVIDERS: PCP Family Medicine; Referring Provider Family Medicine; Visit Provider Family Medicine
DX: Z12.31 Encounter for screening mammogram for malignant neoplasm of breast (principal)
CPT/HCPCS: 77063; 77067

== ENCOUNTER 2020-04-16 15:15 | Outpatient (RCR) | payer MEDICARE, OTHER, SELFPAY ==
--- NOTE | 2019-03-12 18:15 | PT.OIE ---
Current Diagnoses Other forms of scoliosis, lumbar region (03/07/19) Low back pain (03/07/19) Dorsalgia, unspecified (03/07/19) Past Medical History (Last Reviewed 09/27/17 @ 11:46 by Sonal Sanchez LPN) Abnormal Pap smear of cervix (Resolved 1988) Acquired hypothyroidism (Chronic 2011) Anemia (Chronic 1986) Chicken pox (Resolved 1953) Chronic back pain (Chronic 1986) Colitis (Resolved 1971) CTS (carpal tunnel syndrome) (Chronic 1989) Diverticular disease (Chronic 2005) Gastroesophageal reflux disease (Chronic 11/26/10) HPV (human papilloma virus) infection (Resolved 2007) Hyperlipidemia (Chronic) Lumbar spine pain (Chronic) Measles (Resolved 1953) Osteopenia (Chronic 2011) Scoliosis (Chronic 1986) Past Surgical History (Last Reviewed 09/27/17 @ 11:46 by Sonal Sanchez LPN) Anesthesia (Resolved) History of bilateral salpingo-oophorectomy (BSO) History of left oophorectomy (Resolved 1988) Status post bunionectomy (Resolved 2007) Status post bunionectomy (Chronic 2013) Status post tonsillectomy and adenoidectomy (Resolved 1953) Visit Care Team Role Provider Type Lan Gomes MD Attending Provider Physician Primary Care Provider Specialty: Family Practice Address: [address] [place] [address] Email: [email or web address] Physical Therapy Initial Evaluation PT-OP-A Visit Information Start: 03/12/19 17:39 Freq: Status: Active Protocol: Document 03/07/19 16:03 [facility] (Rec: 03/12/19 18:11 [facility] [email or web address]) Out-Patient Physical Therapy Visit Information Visit Information Visit Type Initial Evaluation Visit Note 73 year old female with history of scoliosis and low back pain as well as sacral pain bilaterally Visit Start Time 13:45 Visit Stop Time 14:30 Total Visit Minutes 45 Visit Number 1 Evaluation Information Evaluation Date 03/07/19 PT-OP-B Current Condition Start: 03/12/19 17:39 Freq: Status: Active Protocol: Document 03/07/19 16:03 [facility] (Rec: 03/12/19 18:11 [facility] [email or web address]) Current Condition History of Current Condition Onset Date chronic Current Complaints alternating left and right sided sacral pain History of Current Condition Yaritza 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 She does well with her home stabilization program and aquatic exercise but will experience flares of her sacral pain. Currently her pain is 3/10 and is present both left and right sides of her sacrum Treatment Goals Patient/Caregiver Goals pt's goals include decreasing pain and allowing her to continue with her walking and aquatic therapy routine without pain Current Functional Impairments (Reported) Functional Limitations- ADL's limited with activities that require bending and lifting Functional Limitations- Mobility/Gait pain with walking greater than 1 mile PT-OP-C Subjective Start: 03/12/19 17:39 Freq: Status: Active Protocol: Document 03/07/19 16:03 [facility] (Rec: 03/12/19 18:11 [facility] [email or web address]) OP-PT Pain Assessment Location Right Pain Location Details right SI joint and at times left SI joint Intensity 3 Scale Used Numeric (1 - 10) PT-OP-F Manual Assessment Start: 03/12/19 17:39 Freq: Status: Active Protocol: Document 03/07/19 16:03 [facility] (Rec: 03/12/19 18:11 [facility] [email or web address]) Manual Assessments Soft Tissue Assessment Soft Tissue Mobility Assessment tightness in the piriformis muscle left greater than right , tightness Left ITB tightness of the lumbar and thoracic paraspinals left greater than right Joint Mobility Assessment Joint Mobility Assessment hypomobility of the thoracic spine with PA glides PT-OP-J Posture/Palpation/Skin Start: 03/12/19 17:39 Freq: Status: Active Protocol: Document 03/07/19 16:03 [facility] (Rec: 03/12/19 18:11 [facility] [email or web address]) Posture Evaluation Comments Posture Comments pt stands with a lateral shift to the left due to scoliosis Palpation Assessment Location Two Palpation Location thoracic paraspinals Palpation Findings Soft Tissue Tightness,Spasm, Muscle Guarding One Palpation Location PSIS and sacral NELY. saral base Palpation Findings Soft Tissue Tightness,Muscle Guarding,Tenderness Palpation Details tenderness on either side of the sacrum with muscle guarding, tenderness to palpation at the sacral base and PSIS bilaterally PT-OP-K Range of Motion Start: 03/12/19 18:12 Freq: Status: Active Protocol: Document 03/07/19 16:03 [facility] (Rec: 01/21/20 18:13 [facility] [email or web address]) Lumbar Spine Range of Motion Lumbar Spine Active Testing Position Standing Flexion 70 Lateral Flexion Left 55 Lateral Flexion Right 50 ROM Limitations Soft Tissue Tightness Comments c/o tightness in the sacrum with lumbar flexion activities PT-OP-M Strength Start: 03/12/19 17:39 Freq: Status: Active Protocol: Document 03/07/19 16:03 [facility] (Rec: 03/12/19 18:11 [facility] [email or web address]) Trunk Strength Trunk Manual Muscle Testing Core Stabilization Decreased stabilization of the SI joint, + ASLR test and pain in the SI joint with TA activation PT-OP-Q Treatments Start: 03/12/19 17:39 Freq: Status: Active Protocol: Document 03/07/19 16:03 [facility] (Rec: 03/12/19 18:11 [facility] [email or web address]) Manual Therapy Treatment Soft Tissue Mobilization 3 Body Location Bilateral piriformis release 2 Body Location lumbar spine paraspinal release Comments worked on releasing the left side of the lumbar paraspinals and Quadratus lumborum 1 Body Location thoracic paraspinal MFR PT-OP-T Assessment and Plan Start: 03/12/19 17:39 Freq: Status: Active Protocol: Document 03/07/19 16:03 [facility] (Rec: 03/12/19 18:11 [facility] [email or web address]) Physical Therapy Assessment Goals Four Impairment Decreased transverse abdominal stabilization Short Term Goal (STG) Yaritza Neff is able to perform TA stabilization with marches without any pain STG Duration 4 weeks Long-Term Goal (LTG) Yaritza Neff's core program for home is reviewed and she is properly performing her core stabilization exercises LTG Duration 8 weeks Three Impairment decreased lumbar spine ROM limited bending and lifting activities Flexible Shaft Winder Goal (LTG) Improve lumbar spine ROM to WFL for return to full function with ADL's include bending and lifting activities LTG Duration 8 weeks Two Impairment muscle imbalances of the piriformis creating a torque on the sacrum Long-Term Goal (LTG) improve flexibility of the piriformis on the left to reduce unequal pull on the sacrum LTG Duration 8 weeks One Impairment pain to palpation at the sacral borders due to sacral torsion Short Term Goal (STG) correct the sacral torsion with manual therapy techniques reducing pain at the sacrum STG Duration 6 weeks Assessment Summary Assessment Yaritza Neff returns to PT today with symptoms of sacral pain bilaterally along the lateral borders of the sacrum and piriformis tightness. She has been working on her exercises but recently traveled to [place] and travel tends to flare her symptoms up. Treatment will focus on Sacral mobilizations and stabilization, reviewing a flexibility program and releasing the tight musculature with manual therapy techniques. Physical Therapy Plan Frequency and Duration Frequency of Treatment 2x/Week Duration of Treatment 8 Plan of Care Start Date 03/07/19 Plan of Care End Date 05/02/19 Therapeutic Interventions Therapeutic Interventions Home Exercise Program,Joint Mobilizations,Manual Therapy, Neuromuscular Re-education, Patient/Caregiver Education, Self-Care/Home Management,Soft Tissue Mobilization, Therapeutic Exercises Next Visit Focus/Plan Next Note Type Treatment Note Next Visit Plan Begin lumbar segmental ROM, MFR techniques and sacral mobilizations, progress TA stabilization
--- NOTE | 2019-03-12 18:18 | PT.OPPOC ---
Physical, Occupational & Speech Therapy At [facility] Current Diagnoses Other forms of scoliosis, lumbar region (03/07/19) Low back pain (03/07/19) Dorsalgia, unspecified (03/07/19) Visit Care Team Role Provider Type Lan Gomes MD Attending Provider Physician Primary Care Provider Specialty: Family Practice Address: [address] [place] [address], [facility] Email: [email or web address] Plan Of Care PT-OP-T Assessment and Plan Start: 03/12/19 17:39 Freq: Status: Active Protocol: Document 03/07/19 16:03 [facility] (Rec: 03/12/19 18:11 [facility] [email or web address]) Physical Therapy Assessment Goals Four Impairment Decreased transverse abdominal stabilization Short Term Goal (STG) Yaritza Neff is able to perform TA stabilization with marches without any pain STG Duration 4 weeks Long-Term Goal (LTG) Yaritza Neff's core program for home is reviewed and she is properly performing her core stabilization exercises LTG Duration 8 weeks Three Impairment decreased lumbar spine ROM limited bending and lifting activities Long-Term Goal (LTG) Improve lumbar spine ROM to WFL for return to full function with ADL's include bending and lifting activities LTG Duration 8 weeks Two Impairment muscle imbalances of the piriformis creating a torque on the sacrum Textile Converter Goal (LTG) improve flexibility of the piriformis on the left to reduce unequal pull on the sacrum LTG Duration 8 weeks One Impairment pain to palpation at the sacral borders due to sacral torsion Short Term Goal (STG) correct the sacral torsion with manual therapy techniques reducing pain at the sacrum STG Duration 6 weeks Assessment Summary Assessment Yaritza Neff returns to PT today with symptoms of sacral pain bilaterally along the lateral borders of the sacrum and piriformis tightness. She has been working on her exercises but recently traveled to [place] and travel tends to flare her symptoms up. Treatment will focus on Sacral mobilizations and stabilization, reviewing a flexibility program and releasing the tight musculature with manual therapy techniques. Physical Therapy Plan Frequency and Duration Frequency of Treatment 2x/Week Duration of Treatment 8 Plan of Care Start Date 03/07/19 Plan of Care End Date 05/02/19 Therapeutic Interventions Therapeutic Interventions Home Exercise Program,Joint Mobilizations,Manual Therapy, Neuromuscular Re-education, Patient/Caregiver Education, Self-Care/Home Management,Soft Tissue Mobilization, Therapeutic Exercises Next Visit Focus/Plan Next Note Type Treatment Note Next Visit Plan Begin lumbar segmental ROM, MFR techniques and sacral mobilizations, progress TA stabilization Plan of Care Dates Plan of Care Start Date 03/07/19 Plan of Care End Date 05/02/19 Electronically Signed by: Danya Blanco, PT 03/12/19 0294 Please Sign and Return: I have reviewed this Plan of Care and certify that the skilled therapy services above are required to meet the patient?s needs. Physician Signature Date Printed Name and Credentials Clinical Instructor Signature Printed Name and Credentials
--- NOTE | 2019-03-19 17:36 | PT.OTN ---
Current Diagnoses Other forms of scoliosis, lumbar region (03/19/19) Low back pain (03/19/19) Dorsalgia, unspecified (03/19/19) Physical Therapy Treatment Note PT-OP-A Visit Information Start: 03/12/19 17:39 Freq: Status: Active Protocol: Document 03/19/19 17:32 [facility] (Rec: 03/19/19 17:34 [facility] [email or web address]) Out-Patient Physical Therapy Visit Information Visit Information Visit Type Treatment Note Visit Start Time 14:30 Visit Stop Time 15:15 Total Visit Minutes 45 Visit Number 2 PT-OP-B Current Condition Start: 03/12/19 17:39 Freq: Status: Active Protocol: Document 03/07/19 16:03 [facility] (Rec: 03/12/19 18:11 [facility] [email or web address]) Current Condition History of Current Condition Onset Date chronic Current Complaints alternating left and right sided sacral pain History of Current Condition Yaritza 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 She does well with her home stabilization program and aquatic exercise but will experience flares of her sacral pain. Currently her pain is 3/10 and is present both left and right sides of her sacrum Treatment Goals Patient/Caregiver Goals pt's goals include decreasing pain and allowing her to continue with her walking and aquatic therapy routine without pain Current Functional Impairments (Reported) Functional Limitations- ADL's limited with activities that require bending and lifting Functional Limitations- Mobility/Gait pain with walking greater than 1 mile PT-OP-C Subjective Start: 03/12/19 17:39 Freq: Status: Active Protocol: Document 03/19/19 17:32 [facility] (Rec: 03/19/19 17:34 [facility] [email or web address]) OP-PT Subjective Patient Comments Patient Comments pt reports she had a intestinal bug last week, she can feel alot of tightness on the left abdominal wall and thoracic spine PT-OP-F Manual Assessment Start: 03/12/19 17:39 Freq: Status: Active Protocol: Document 03/07/19 16:03 [facility] (Rec: 03/12/19 18:11 [facility] [email or web address]) Manual Assessments Soft Tissue Assessment Soft Tissue Mobility Assessment tightness in the piriformis muscle left greater than right , tightness Left ITB tightness of the lumbar and thoracic paraspinals left greater than right Joint Mobility Assessment Joint Mobility Assessment hypomobility of the thoracic spine with PA glides PT-OP-J Posture/Palpation/Skin Start: 03/12/19 17:39 Freq: Status: Active Protocol: Document 03/07/19 16:03 [facility] (Rec: 03/12/19 18:11 [facility] [email or web address]) Posture Evaluation Comments Posture Comments pt stands with a lateral shift to the left due to scoliosis Palpation Assessment Location Two Palpation Location thoracic paraspinals Palpation Findings Soft Tissue Tightness,Spasm, Muscle Guarding One Palpation Location PSIS and sacral NELY. saral base Palpation Findings Soft Tissue Tightness,Muscle Guarding,Tenderness Palpation Details tenderness on either side of the sacrum with muscle guarding, tenderness to palpation at the sacral base and PSIS bilaterally PT-OP-K Range of Motion Start: 03/12/19 18:12 Freq: Status: Active Protocol: Document 03/07/19 16:03 [facility] (Rec: 03/12/19 18:13 [facility] [email or web address]) Lumbar Spine Range of Motion Lumbar Spine Active Testing Position Standing Flexion 70 Lateral Flexion Left 55 Lateral Flexion Right 50 ROM Limitations Soft Tissue Tightness Comments c/o tightness in the sacrum with lumbar flexion activities PT-OP-M Strength Start: 03/12/19 17:39 Freq: Status: Active Protocol: Document 03/07/19 16:03 [facility] (Rec: 03/12/19 18:11 [facility] [email or web address]) Trunk Strength Trunk Manual Muscle Testing Core Stabilization Decreased stabilization of the SI joint, + ASLR test and pain in the SI joint with TA activation PT-OP-Q Treatments Start: 03/12/19 17:39 Freq: Status: Active Protocol: Document 03/19/19 17:35 [facility] (Rec: 03/19/19 17:36 [facility] [email or web address]) Manual Therapy Treatment Soft Tissue Mobilization 4 Body Location left quadratus lumborum Mobilization Type Myofascial Release Body Position Supine 3 Body Location Bilateral piriformis release 2 Body Location lumbar spine paraspinal release Comments worked on releasing the left side of the lumbar paraspinals and Quadratus lumborum 1 Body Location thoracic paraspinal MFR Joint Mobilizations 2 Joint PA mobilization thoracic spine T5-10 Direction PA Grade II Body Position Prone 1 Joint MET for sacral counter nutation PT-OP-T Assessment and Plan Start: 03/12/19 17:39 Freq: Status: Active Protocol: Document 03/19/19 17:32 [facility] (Rec: 03/19/19 17:34 [facility] [email or web address]) Physical Therapy Assessment Assessment Summary Assessment Good tolerance for manual work today, worked on the left QL and rib cage as well as thoracic mobility. Yaritza Neff is trying to swim 5 days per week now. Physical Therapy Plan Frequency and Duration Frequency of Treatment 2x/Week Duration of Treatment 8 Plan of Care Start Date 03/07/19 Plan of Care End Date 05/02/19 Therapeutic Interventions Therapeutic Interventions Home Exercise Program,Joint Mobilizations,Manual Therapy, Neuromuscular Re-education, Patient/Caregiver Education, Self-Care/Home Management,Soft Tissue Mobilization, Therapeutic Exercises
--- NOTE | 2019-03-21 17:20 | PT.OTN ---
Current Diagnoses Other forms of scoliosis, lumbar region (03/21/19) Low back pain (03/21/19) Dorsalgia, unspecified (03/21/19) Physical Therapy Treatment Note PT-OP-A Visit Information Start: 03/12/19 17:39 Freq: Status: Active Protocol: Document 03/21/19 17:09 [facility] (Rec: 03/21/19 17:17 [facility] [email or web address]) Out-Patient Physical Therapy Visit Information Visit Information Visit Type Treatment Note Visit Start Time 14:30 Visit Stop Time 15:15 Total Visit Minutes 45 Visit Number 3 PT-OP-B Current Condition Start: 03/12/19 17:39 Freq: Status: Active Protocol: Document 03/07/19 16:03 [facility] (Rec: 03/12/19 18:11 [facility] [email or web address]) Current Condition History of Current Condition Onset Date chronic Current Complaints alternating left and right sided sacral pain History of Current Condition Nasra 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 She does well with her home stabilization program and aquatic exercise but will experience flares of her sacral pain. Currently her pain is 3/10 and is present both left and right sides of her sacrum Treatment Goals Patient/Caregiver Goals pt's goals include decreasing pain and allowing her to continue with her walking and aquatic therapy routine without pain Current Functional Impairments (Reported) Functional Limitations- ADL's limited with activities that require bending and lifting Functional Limitations- Mobility/Gait pain with walking greater than 1 mile PT-OP-C Subjective Start: 03/12/19 17:39 Freq: Status: Active Protocol: Document 03/21/19 17:09 [facility] (Rec: 03/21/19 17:17 [facility] [email or web address]) OP-PT Subjective Patient Comments Patient Comments decreased c/o the abdominal pain now, still feeling tightness left sacral region PT-OP-F Manual Assessment Start: 03/12/19 17:39 Freq: Status: Active Protocol: Document 03/07/19 16:03 [facility] (Rec: 03/12/19 18:11 [facility] [email or web address]) Manual Assessments Soft Tissue Assessment Soft Tissue Mobility Assessment tightness in the piriformis muscle left greater than right , tightness Left ITB tightness of the lumbar and thoracic paraspinals left greater than right Joint Mobility Assessment Joint Mobility Assessment hypomobility of the thoracic spine with PA glides PT-OP-J Posture/Palpation/Skin Start: 03/12/19 17:39 Freq: Status: Active Protocol: Document 03/07/19 16:03 [facility] (Rec: 03/12/19 18:11 [facility] [email or web address]) Posture Evaluation Comments Posture Comments pt stands with a lateral shift to the left due to scoliosis Palpation Assessment Location Two Palpation Location thoracic paraspinals Palpation Findings Soft Tissue Tightness,Spasm, Muscle Guarding One Palpation Location PSIS and sacral NELY. saral base Palpation Findings Soft Tissue Tightness,Muscle Guarding,Tenderness Palpation Details tenderness on either side of the sacrum with muscle guarding, tenderness to palpation at the sacral base and PSIS bilaterally PT-OP-K Range of Motion Start: 03/12/19 18:12 Freq: Status: Active Protocol: Document 03/07/19 16:03 [facility] (Rec: 03/12/19 18:13 [facility] [email or web address]) Lumbar Spine Range of Motion Lumbar Spine Active Testing Position Standing Flexion 70 Lateral Flexion Left 55 Lateral Flexion Right 50 ROM Limitations Soft Tissue Tightness Comments c/o tightness in the sacrum with lumbar flexion activities PT-OP-M Strength Start: 03/12/19 17:39 Freq: Status: Active Protocol: Document 03/07/19 16:03 [facility] (Rec: 03/12/19 18:11 [facility] [email or web address]) Trunk Strength Trunk Manual Muscle Testing Core Stabilization Decreased stabilization of the SI joint, + ASLR test and pain in the SI joint with TA activation PT-OP-Q Treatments Start: 03/12/19 17:39 Freq: Status: Active Protocol: Document 03/21/19 17:09 [facility] (Rec: 03/21/19 17:17 [facility] [email or web address]) Therapeutic Exercises Sitting Exercises 1 Sitting Exercise Name seated sidebends Reps/Minutes x 4 each Standing Exercises 1 Standing Exercise Name Serratus anterior wall press Comments for scapular/thoracic mobility Other Exercises 6 Other Exercise Name aiden pose 4 Other Exercise Name quadruped pelvic tilts 3 Other Exercise Name quadruped sidebends/thoracic rotation Reps/Minutes x 5 reps 2 Other Exercise Name supine sidebending stretch Manual Therapy Treatment Soft Tissue Mobilization 3 Body Location Bilateral piriformis release 2 Body Location lumbar spine paraspinal release Comments worked on releasing the left side of the lumbar paraspinals and Quadratus lumborum 1 Body Location thoracic paraspinal MFR Joint Mobilizations 2 Joint PA mobilization thoracic spine T5-10 Direction PA Grade II Body Position Prone 1 Joint MET for sacral counter nutation PT-OP-T Assessment and Plan Start: 03/12/19 17:39 Freq: Status: Active Protocol: Document 03/21/19 17:09 [facility] (Rec: 03/21/19 17:17 [facility] [email or web address]) Physical Therapy Assessment Assessment Summary Assessment returned to sidebending exercises for nasra Neff to help with the tightness she gets due to scoliosis, good tolerance for manual therapy techniques Physical Therapy Plan Frequency and Duration Frequency of Treatment 2x/Week Duration of Treatment 8 Plan of Care Start Date 03/07/19 Plan of Care End Date 05/02/19 Therapeutic Interventions Therapeutic Interventions Home Exercise Program,Joint Mobilizations,Manual Therapy, Neuromuscular Re-education, Patient/Caregiver Education, Self-Care/Home Management,Soft Tissue Mobilization, Therapeutic Exercises Next Visit Focus/Plan Next Note Type Treatment Note Next Visit Plan reasses sidebending stretches and postural corrections, MFR techniques to release the sacral tightness
--- NOTE | 2019-03-26 18:00 | PT.OTN ---
Current Diagnoses Other forms of scoliosis, lumbar region (03/26/19) Low back pain (03/26/19) Dorsalgia, unspecified (03/26/19) Physical Therapy Treatment Note PT-OP-A Visit Information Start: 03/12/19 17:39 Freq: Status: Active Protocol: Document 03/26/19 17:41 [facility] (Rec: 03/26/19 18:00 [facility] [email or web address]) Out-Patient Physical Therapy Visit Information Visit Information Visit Type Treatment Note Visit Start Time 13:00 Visit Stop Time 13:45 Total Visit Minutes 45 Visit Number 4 PT-OP-B Current Condition Start: 03/12/19 17:39 Freq: Status: Active Protocol: Document 03/07/19 16:03 [facility] (Rec: 03/12/19 18:11 [facility] [email or web address]) Current Condition History of Current Condition Onset Date chronic Current Complaints alternating left and right sided sacral pain History of Current Condition Yaritza 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 She does well with her home stabilization program and aquatic exercise but will experience flares of her sacral pain. Currently her pain is 3/10 and is present both left and right sides of her sacrum Treatment Goals Patient/Caregiver Goals pt's goals include decreasing pain and allowing her to continue with her walking and aquatic therapy routine without pain Current Functional Impairments (Reported) Functional Limitations- ADL's limited with activities that require bending and lifting Functional Limitations- Mobility/Gait pain with walking greater than 1 mile PT-OP-C Subjective Start: 03/12/19 17:39 Freq: Status: Active Protocol: Document 03/26/19 17:41 [facility] (Rec: 03/26/19 18:00 [facility] [email or web address]) OP-PT Subjective Patient Comments Patient Comments pt reports the pool really helps loosen her up as she felt very tight this am. She is feeling tightness around the sacrum even after her pool session PT-OP-F Manual Assessment Start: 03/12/19 17:39 Freq: Status: Active Protocol: Document 03/07/19 16:03 [facility] (Rec: 03/12/19 18:11 [facility] [email or web address]) Manual Assessments Soft Tissue Assessment Soft Tissue Mobility Assessment tightness in the piriformis muscle left greater than right , tightness Left ITB tightness of the lumbar and thoracic paraspinals left greater than right Joint Mobility Assessment Joint Mobility Assessment hypomobility of the thoracic spine with PA glides PT-OP-J Posture/Palpation/Skin Start: 03/12/19 17:39 Freq: Status: Active Protocol: Document 03/07/19 16:03 [facility] (Rec: 03/12/19 18:11 [facility] [email or web address]) Posture Evaluation Comments Posture Comments pt stands with a lateral shift to the left due to scoliosis Palpation Assessment Location Two Palpation Location thoracic paraspinals Palpation Findings Soft Tissue Tightness,Spasm, Muscle Guarding One Palpation Location PSIS and sacral NELY. saral base Palpation Findings Soft Tissue Tightness,Muscle Guarding,Tenderness Palpation Details tenderness on either side of the sacrum with muscle guarding, tenderness to palpation at the sacral base and PSIS bilaterally PT-OP-K Range of Motion Start: 03/12/19 18:12 Freq: Status: Active Protocol: Document 03/07/19 16:03 [facility] (Rec: 03/12/19 18:13 [facility] [email or web address]) Lumbar Spine Range of Motion Lumbar Spine Active Testing Position Standing Flexion 70 Lateral Flexion Left 55 Lateral Flexion Right 50 ROM Limitations Soft Tissue Tightness Comments c/o tightness in the sacrum with lumbar flexion activities PT-OP-M Strength Start: 03/12/19 17:39 Freq: Status: Active Protocol: Document 03/07/19 16:03 [facility] (Rec: 03/12/19 18:11 [facility] [email or web address]) Trunk Strength Trunk Manual Muscle Testing Core Stabilization Decreased stabilization of the SI joint, + ASLR test and pain in the SI joint with TA activation PT-OP-Q Treatments Start: 03/12/19 17:39 Freq: Status: Active Protocol: Document 03/26/19 17:41 [facility] (Rec: 03/26/19 18:00 [facility] [email or web address]) Therapeutic Exercises Supine Exercises 1 Supine Exercise Name supine sidebend stretch Sitting Exercises 7 Sitting Exercise Name seated TA with opp arm lifts over head 6 Sitting Exercise Name seated TA facilitation with marches on ball 1 Sitting Exercise Name seated sidebends Reps/Minutes x 4 each Manual Therapy Treatment Soft Tissue Mobilization 2 Body Location lumbar spine paraspinal release Comments worked on releasing the left side of the lumbar paraspinals and Quadratus lumborum 1 Body Location thoracic paraspinal MFR Joint Mobilizations 1 Joint MET for sacral counter nutation PT-OP-T Assessment and Plan Start: 03/12/19 17:39 Freq: Status: Active Protocol: Document 03/26/19 17:41 [facility] (Rec: 03/26/19 18:00 [facility] [email or web address]) Physical Therapy Assessment Assessment Summary Assessment reviewed side bend stretches and seated core stabilization with marches and over head arm reaching. Still tight in bilateral piriformis region and left thoracic spinal musculature Physical Therapy Plan Frequency and Duration Frequency of Treatment 2x/Week Duration of Treatment 8 Plan of Care Start Date 03/07/19 Plan of Care End Date 05/02/19 Therapeutic Interventions Therapeutic Interventions Home Exercise Program,Joint Mobilizations,Manual Therapy, Neuromuscular Re-education, Patient/Caregiver Education, Self-Care/Home Management,Soft Tissue Mobilization, Therapeutic Exercises Next Visit Focus/Plan Next Note Type Treatment Note Next Visit Plan reasses sidebending stretches and postural corrections, MFR techniques to release the sacral tightness
--- NOTE | 2019-03-28 12:41 | PT.OTN ---
Current Diagnoses Other forms of scoliosis, lumbar region (03/28/19) Low back pain (03/28/19) Dorsalgia, unspecified (03/28/19) Physical Therapy Treatment Note PT-OP-A Visit Information Start: 03/12/19 17:39 Freq: Status: Active Protocol: Document 03/28/19 12:31 [facility] (Rec: 03/28/19 12:40 [facility] [email or web address]) Out-Patient Physical Therapy Visit Information Visit Information Visit Type Treatment Note Visit Start Time 11:15 Visit Stop Time 12:00 Total Visit Minutes 45 Visit Number 5 PT-OP-B Current Condition Start: 03/12/19 17:39 Freq: Status: Active Protocol: Document 03/07/19 16:03 [facility] (Rec: 03/12/19 18:11 [facility] [email or web address]) Current Condition History of Current Condition Onset Date chronic Current Complaints alternating left and right sided sacral pain History of Current Condition Yaritza 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 She does well with her home stabilization program and aquatic exercise but will experience flares of her sacral pain. Currently her pain is 3/10 and is present both left and right sides of her sacrum Treatment Goals Patient/Caregiver Goals pt's goals include decreasing pain and allowing her to continue with her walking and aquatic therapy routine without pain Current Functional Impairments (Reported) Functional Limitations- ADL's limited with activities that require bending and lifting Functional Limitations- Mobility/Gait pain with walking greater than 1 mile PT-OP-C Subjective Start: 03/12/19 17:39 Freq: Status: Active Protocol: Document 03/28/19 12:31 [facility] (Rec: 03/28/19 12:40 [facility] [email or web address]) OP-PT Subjective Patient Comments Patient Comments pt reports she felt a great deal of tightness in her left side of her anterior abdominal wall. She feels when her back gets tight with the scoliosis she will get a pulling across the front of her pelvis. There at times can also be a sharp pain right above the bladder PT-OP-F Manual Assessment Start: 03/12/19 17:39 Freq: Status: Active Protocol: Document 03/07/19 16:03 [facility] (Rec: 03/12/19 18:11 [facility] [email or web address]) Manual Assessments Soft Tissue Assessment Soft Tissue Mobility Assessment tightness in the piriformis muscle left greater than right , tightness Left ITB tightness of the lumbar and thoracic paraspinals left greater than right Joint Mobility Assessment Joint Mobility Assessment hypomobility of the thoracic spine with PA glides PT-OP-J Posture/Palpation/Skin Start: 03/12/19 17:39 Freq: Status: Active Protocol: Document 03/07/19 16:03 [facility] (Rec: 03/12/19 18:11 [facility] [email or web address]) Posture Evaluation Comments Posture Comments pt stands with a lateral shift to the left due to scoliosis Palpation Assessment Location Two Palpation Location thoracic paraspinals Palpation Findings Soft Tissue Tightness,Spasm, Muscle Guarding One Palpation Location PSIS and sacral NELY. saral base Palpation Findings Soft Tissue Tightness,Muscle Guarding,Tenderness Palpation Details tenderness on either side of the sacrum with muscle guarding, tenderness to palpation at the sacral base and PSIS bilaterally PT-OP-K Range of Motion Start: 03/12/19 18:12 Freq: Status: Active Protocol: Document 03/07/19 16:03 [facility] (Rec: 03/12/19 18:13 [facility] [email or web address]) Lumbar Spine Range of Motion Lumbar Spine Active Testing Position Standing Flexion 70 Lateral Flexion Left 55 Lateral Flexion Right 50 ROM Limitations Soft Tissue Tightness Comments c/o tightness in the sacrum with lumbar flexion activities PT-OP-M Strength Start: 03/12/19 17:39 Freq: Status: Active Protocol: Document 03/07/19 16:03 [facility] (Rec: 03/12/19 18:11 [facility] [email or web address]) Trunk Strength Trunk Manual Muscle Testing Core Stabilization Decreased stabilization of the SI joint, + ASLR test and pain in the SI joint with TA activation PT-OP-Q Treatments Start: 03/12/19 17:39 Freq: Status: Active Protocol: Document 03/28/19 12:31 [facility] (Rec: 03/28/19 12:40 [facility] [email or web address]) Therapeutic Exercises Sitting Exercises 7 Sitting Exercise Name seated TA with opp arm lifts over head Equipment Used seated on gym ball 6 Sitting Exercise Name seated TA facilitation with marches on ball Equipment Used seated on gym ball 5 Sitting Exercise Name seated pelvic clocks on gym ball Reps/Minutes x 10 each direction 1 Sitting Exercise Name seated sidebends Reps/Minutes x 4 each Standing Exercises 1 Standing Exercise Name Serratus anterior wall press Comments for scapular/thoracic mobility Self-Care/Home Management Treatment Education Patient Education Home Exercise Program Other Education ILU self massage for the colon PT-OP-T Assessment and Plan Start: 03/12/19 17:39 Freq: Status: Active Protocol: Document 03/28/19 12:31 [facility] (Rec: 03/28/19 12:40 [facility] [email or web address]) Physical Therapy Assessment Assessment Summary Assessment pt doing really well at using her foam roll for home and going to the pool 5 days a week. We worked on MFR over the descending colon today and fascial mobility of the thoracic paraspinals, piriformis, and sacral rocking techniques Physical Therapy Plan Frequency and Duration Frequency of Treatment 2x/Week Duration of Treatment 8 Plan of Care Start Date 03/07/19 Plan of Care End Date 05/02/19 Therapeutic Interventions Therapeutic Interventions Home Exercise Program,Joint Mobilizations,Manual Therapy, Neuromuscular Re-education, Patient/Caregiver Education, Self-Care/Home Management,Soft Tissue Mobilization, Therapeutic Exercises Next Visit Focus/Plan Next Note Type Treatment Note Next Visit Plan review ILU self massage
--- NOTE | 2019-04-02 12:49 | PT.OTN ---
Current Diagnoses Other forms of scoliosis, lumbar region (04/02/19) Low back pain (04/02/19) Dorsalgia, unspecified (04/02/19) Physical Therapy Treatment Note PT-OP-A Visit Information Start: 03/12/19 17:39 Freq: Status: Active Protocol: Document 04/02/19 12:45 [facility] (Rec: 04/02/19 12:49 [facility] [email or web address]) Out-Patient Physical Therapy Visit Information Visit Information Visit Type Treatment Note Visit Start Time 10:30 Visit Stop Time 11:15 Total Visit Minutes 45 Visit Number 6 PT-OP-B Current Condition Start: 03/12/19 17:39 Freq: Status: Active Protocol: Document 03/07/19 16:03 [facility] (Rec: 03/12/19 18:11 [facility] [email or web address]) Current Condition History of Current Condition Onset Date chronic Current Complaints alternating left and right sided sacral pain History of Current Condition Yaritza 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 She does well with her home stabilization program and aquatic exercise but will experience flares of her sacral pain. Currently her pain is 3/10 and is present both left and right sides of her sacrum Treatment Goals Patient/Caregiver Goals pt's goals include decreasing pain and allowing her to continue with her walking and aquatic therapy routine without pain Current Functional Impairments (Reported) Functional Limitations- ADL's limited with activities that require bending and lifting Functional Limitations- Mobility/Gait pain with walking greater than 1 mile PT-OP-C Subjective Start: 03/12/19 17:39 Freq: Status: Active Protocol: Document 04/02/19 12:45 [facility] (Rec: 04/02/19 12:49 [facility] [email or web address]) OP-PT Subjective Patient Comments Patient Comments pt reports she has been doing all her stretches and the pool , she feels sometimes when she does her abdominal stabilization with marches that it hurts her sacral region PT-OP-F Manual Assessment Start: 03/12/19 17:39 Freq: Status: Active Protocol: Document 03/07/19 16:03 [facility] (Rec: 03/12/19 18:11 [facility] [email or web address]) Manual Assessments Soft Tissue Assessment Soft Tissue Mobility Assessment tightness in the piriformis muscle left greater than right , tightness Left ITB tightness of the lumbar and thoracic paraspinals left greater than right Joint Mobility Assessment Joint Mobility Assessment hypomobility of the thoracic spine with PA glides PT-OP-J Posture/Palpation/Skin Start: 03/12/19 17:39 Freq: Status: Active Protocol: Document 03/07/19 16:03 [facility] (Rec: 03/12/19 18:11 [facility] [email or web address]) Posture Evaluation Comments Posture Comments pt stands with a lateral shift to the left due to scoliosis Palpation Assessment Location Two Palpation Location thoracic paraspinals Palpation Findings Soft Tissue Tightness,Spasm, Muscle Guarding One Palpation Location PSIS and sacral NELY. saral base Palpation Findings Soft Tissue Tightness,Muscle Guarding,Tenderness Palpation Details tenderness on either side of the sacrum with muscle guarding, tenderness to palpation at the sacral base and PSIS bilaterally PT-OP-K Range of Motion Start: 03/12/19 18:12 Freq: Status: Active Protocol: Document 03/07/19 16:03 [facility] (Rec: 03/12/19 18:13 [facility] [email or web address]) Lumbar Spine Range of Motion Lumbar Spine Active Testing Position Standing Flexion 70 Lateral Flexion Left 55 Lateral Flexion Right 50 ROM Limitations Soft Tissue Tightness Comments c/o tightness in the sacrum with lumbar flexion activities PT-OP-M Strength Start: 03/12/19 17:39 Freq: Status: Active Protocol: Document 03/07/19 16:03 [facility] (Rec: 03/12/19 18:11 [facility] [email or web address]) Trunk Strength Trunk Manual Muscle Testing Core Stabilization Decreased stabilization of the SI joint, + ASLR test and pain in the SI joint with TA activation PT-OP-Q Treatments Start: 03/12/19 17:39 Freq: Status: Active Protocol: Document 04/02/19 12:45 [facility] (Rec: 04/02/19 12:49 [facility] [email or web address]) Therapeutic Exercises Supine Exercises 2 Supine Exercise Name TA facilitation in supine knees bent Reps/Minutes x 5 Comments worked on feet on bed and feet in air with isometrics Sitting Exercises 1 Sitting Exercise Name seated sidebends Reps/Minutes x 4 each Manual Therapy Treatment Soft Tissue Mobilization 2 Body Location lumbar spine paraspinal release Comments worked on releasing the left side of the lumbar paraspinals and Quadratus lumborum 1 Body Location thoracic paraspinal MFR Joint Mobilizations 2 Joint PA mobilization thoracic spine T5-10 Direction PA Grade II Body Position Prone 1 Joint MET for sacral counter nutation PT-OP-T Assessment and Plan Start: 03/12/19 17:39 Freq: Status: Active Protocol: Document 04/02/19 12:45 [facility] (Rec: 04/02/19 12:49 [facility] [email or web address]) Physical Therapy Assessment Assessment Summary Assessment pt does best with seated sidebends and seated marches, supine tends to aggravate her spine. Physical Therapy Plan Frequency and Duration Frequency of Treatment 2x/Week Duration of Treatment 8 Plan of Care Start Date 03/07/19 Plan of Care End Date 05/02/19
--- NOTE | 2019-04-11 16:49 | PT.OTN ---
Current Diagnoses Other forms of scoliosis, lumbar region (04/11/19) Low back pain (04/11/19) Dorsalgia, unspecified (04/11/19) Physical Therapy Treatment Note PT-OP-A Visit Information Start: 03/12/19 17:39 Freq: Status: Active Protocol: Document 04/11/19 16:39 [facility] (Rec: 04/11/19 16:49 [facility] [email or web address]) Out-Patient Physical Therapy Visit Information Visit Information Visit Type Treatment Note Visit Start Time 15:15 Visit Stop Time 16:00 Total Visit Minutes 45 Visit Number 7 PT-OP-B Current Condition Start: 03/12/19 17:39 Freq: Status: Active Protocol: Document 03/07/19 16:03 [facility] (Rec: 03/12/19 18:11 [facility] [email or web address]) Current Condition History of Current Condition Onset Date chronic Current Complaints alternating left and right sided sacral pain History of Current Condition Yaritza 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 She does well with her home stabilization program and aquatic exercise but will experience flares of her sacral pain. Currently her pain is 3/10 and is present both left and right sides of her sacrum Treatment Goals Patient/Caregiver Goals pt's goals include decreasing pain and allowing her to continue with her walking and aquatic therapy routine without pain Current Functional Impairments (Reported) Functional Limitations- ADL's limited with activities that require bending and lifting Functional Limitations- Mobility/Gait pain with walking greater than 1 mile PT-OP-C Subjective Start: 03/12/19 17:39 Freq: Status: Active Protocol: Document 04/11/19 16:39 [facility] (Rec: 04/11/19 16:49 [facility] [email or web address]) OP-PT Subjective Patient Comments Patient Comments Yaritza neff reports she had to reach far to the right in her car for a item and she irritated her left hip. It feels a little better now but has been aggravated this week PT-OP-F Manual Assessment Start: 03/12/19 17:39 Freq: Status: Active Protocol: Document 03/07/19 16:03 [facility] (Rec: 03/12/19 18:11 [facility] [email or web address]) Manual Assessments Soft Tissue Assessment Soft Tissue Mobility Assessment tightness in the piriformis muscle left greater than right , tightness Left ITB tightness of the lumbar and thoracic paraspinals left greater than right Joint Mobility Assessment Joint Mobility Assessment hypomobility of the thoracic spine with PA glides PT-OP-J Posture/Palpation/Skin Start: 03/12/19 17:39 Freq: Status: Active Protocol: Document 03/07/19 16:03 [facility] (Rec: 03/12/19 18:11 [facility] [email or web address]) Posture Evaluation Comments Posture Comments pt stands with a lateral shift to the left due to scoliosis Palpation Assessment Location Two Palpation Location thoracic paraspinals Palpation Findings Soft Tissue Tightness,Spasm, Muscle Guarding One Palpation Location PSIS and sacral NELY. saral base Palpation Findings Soft Tissue Tightness,Muscle Guarding,Tenderness Palpation Details tenderness on either side of the sacrum with muscle guarding, tenderness to palpation at the sacral base and PSIS bilaterally PT-OP-K Range of Motion Start: 03/12/19 18:12 Freq: Status: Active Protocol: Document 03/07/19 16:03 [facility] (Rec: 03/12/19 18:13 [facility] [email or web address]) Lumbar Spine Range of Motion Lumbar Spine Active Testing Position Standing Flexion 70 Lateral Flexion Left 55 Lateral Flexion Right 50 ROM Limitations Soft Tissue Tightness Comments c/o tightness in the sacrum with lumbar flexion activities PT-OP-M Strength Start: 03/12/19 17:39 Freq: Status: Active Protocol: Document 03/07/19 16:03 [facility] (Rec: 03/12/19 18:11 [facility] [email or web address]) Trunk Strength Trunk Manual Muscle Testing Core Stabilization Decreased stabilization of the SI joint, + ASLR test and pain in the SI joint with TA activation PT-OP-Q Treatments Start: 03/12/19 17:39 Freq: Status: Active Protocol: Document 04/11/19 16:39 [facility] (Rec: 04/11/19 16:49 [facility] [email or web address]) Therapeutic Exercises Supine Exercises 2 Supine Exercise Name TA facilitation in supine knees bent Reps/Minutes x 5 1 Supine Exercise Name Supine ball squeeze with pelvic floor activation Reps/Minutes 15 reps x 5 second hold time Manual Therapy Treatment Soft Tissue Mobilization 5 Body Location left ITB and TFL release Comments in supine 4 Body Location left quadratus lumborum Mobilization Type Myofascial Release Body Position Supine 3 Body Location Bilateral piriformis release 2 Body Location lumbar spine paraspinal release Body Position Prone Comments worked on releasing the left side of the lumbar paraspinals and Quadratus lumborum 1 Body Location thoracic paraspinal MFR Body Position Supine Comments scalene and upper trapezius stretching PT-OP-T Assessment and Plan Start: 03/12/19 17:39 Freq: Status: Active Protocol: Document 04/11/19 16:39 [facility] (Rec: 04/11/19 16:49 [facility] [email or web address]) Physical Therapy Assessment Assessment Summary Assessment discussed body mechanics to avoid irritation as it doesn't take a lot to shift Yaritza Neff' s pelvis. Worked on her ITB on the left and then sacral region. Reviewed SI stabilizating exercises Physical Therapy Plan Next Visit Focus/Plan Next Note Type Treatment Note Next Visit Plan Recheck SI alignement next visit and review core stabilization exercises
--- NOTE | 2019-04-16 17:46 | PT.OTN ---
Current Diagnoses Other forms of scoliosis, lumbar region (04/16/19) Low back pain (04/16/19) Dorsalgia, unspecified (04/16/19) Physical Therapy Treatment Note PT-OP-A Visit Information Start: 03/12/19 17:39 Freq: Status: Active Protocol: Document 04/16/19 17:38 [facility] (Rec: 04/16/19 17:46 [facility] [email or web address]) Out-Patient Physical Therapy Visit Information Visit Information Visit Type Treatment Note Visit Start Time 16:00 Visit Stop Time 16:45 Total Visit Minutes 45 Visit Number 8 PT-OP-B Current Condition Start: 03/12/19 17:39 Freq: Status: Active Protocol: Document 03/07/19 16:03 [facility] (Rec: 03/12/19 18:11 [facility] [email or web address]) Current Condition History of Current Condition Onset Date chronic Current Complaints alternating left and right sided sacral pain History of Current Condition Yaritza 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 She does well with her home stabilization program and aquatic exercise but will experience flares of her sacral pain. Currently her pain is 3/10 and is present both left and right sides of her sacrum Treatment Goals Patient/Caregiver Goals pt's goals include decreasing pain and allowing her to continue with her walking and aquatic therapy routine without pain Current Functional Impairments (Reported) Functional Limitations- ADL's limited with activities that require bending and lifting Functional Limitations- Mobility/Gait pain with walking greater than 1 mile PT-OP-C Subjective Start: 03/12/19 17:39 Freq: Status: Active Protocol: Document 04/16/19 17:38 [facility] (Rec: 04/16/19 17:46 [facility] [email or web address]) OP-PT Subjective Patient Comments Patient Comments Yaritza neff describes straining the right side of her neck and the pain is traveling into her jaw line. She is concerned about TMJ PT-OP-F Manual Assessment Start: 03/12/19 17:39 Freq: Status: Active Protocol: Document 03/07/19 16:03 [facility] (Rec: 03/12/19 18:11 [facility] [email or web address]) Manual Assessments Soft Tissue Assessment Soft Tissue Mobility Assessment tightness in the piriformis muscle left greater than right , tightness Left ITB tightness of the lumbar and thoracic paraspinals left greater than right Joint Mobility Assessment Joint Mobility Assessment hypomobility of the thoracic spine with PA glides PT-OP-J Posture/Palpation/Skin Start: 03/12/19 17:39 Freq: Status: Active Protocol: Document 03/07/19 16:03 [facility] (Rec: 03/12/19 18:11 [facility] [email or web address]) Posture Evaluation Comments Posture Comments pt stands with a lateral shift to the left due to scoliosis Palpation Assessment Location Two Palpation Location thoracic paraspinals Palpation Findings Soft Tissue Tightness,Spasm, Muscle Guarding One Palpation Location PSIS and sacral NELY. saral base Palpation Findings Soft Tissue Tightness,Muscle Guarding,Tenderness Palpation Details tenderness on either side of the sacrum with muscle guarding, tenderness to palpation at the sacral base and PSIS bilaterally PT-OP-K Range of Motion Start: 03/12/19 18:12 Freq: Status: Active Protocol: Document 03/07/19 16:03 [facility] (Rec: 03/12/19 18:13 [facility] [email or web address]) Lumbar Spine Range of Motion Lumbar Spine Active Testing Position Standing Flexion 70 Lateral Flexion Left 55 Lateral Flexion Right 50 ROM Limitations Soft Tissue Tightness Comments c/o tightness in the sacrum with lumbar flexion activities PT-OP-M Strength Start: 03/12/19 17:39 Freq: Status: Active Protocol: Document 03/07/19 16:03 [facility] (Rec: 03/12/19 18:11 [facility] [email or web address]) Trunk Strength Trunk Manual Muscle Testing Core Stabilization Decreased stabilization of the SI joint, + ASLR test and pain in the SI joint with TA activation PT-OP-Q Treatments Start: 03/12/19 17:39 Freq: Status: Active Protocol: Document 04/16/19 17:38 [facility] (Rec: 04/16/19 17:46 [facility] [email or web address]) Manual Therapy Treatment Soft Tissue Mobilization upper trapezius release Body Location upper trapezius release Mobilization Type Myofascial Release Body Position Supine SCM release Body Location Right SCM release Mobilization Type Myofascial Release Joint Mobilizations 1 Joint MET for C 1 Comments augustina velásquez and pt taught MET for home with gentle resistance through cervical sidebends Manual Traction Cervical Details manual cervical traction Comments supine PT-OP-T Assessment and Plan Start: 03/12/19 17:39 Freq: Status: Active Protocol: Document 04/16/19 17:38 [facility] (Rec: 04/16/19 17:46 [facility] [email or web address]) Physical Therapy Assessment Assessment Summary Assessment worked today on the right side of the cervical spine, right C1 TP was more palpable on the right as compared to the left and Yaritza ashby was experience pain into her jaw. Treatment focused on gentle atlas mobilization with MET and MFR Physical Therapy Plan Frequency and Duration Frequency of Treatment 2x/Week Duration of Treatment 8 Plan of Care Start Date 03/07/19 Plan of Care End Date 05/02/19 Therapeutic Interventions Therapeutic Interventions Home Exercise Program,Joint Mobilizations,Manual Therapy, Neuromuscular Re-education, Patient/Caregiver Education, Self-Care/Home Management,Soft Tissue Mobilization, Therapeutic Exercises Next Visit Focus/Plan Next Note Type Treatment Note Next Visit Plan reassess cervical spine, trial of side plank on the right to begin strengthening right quadratus lumborum
--- NOTE | 2019-04-18 10:52 | PT.OTN ---
Current Diagnoses Other forms of scoliosis, lumbar region (04/18/19) Low back pain (04/18/19) Dorsalgia, unspecified (04/18/19) Physical Therapy Treatment Note PT-OP-A Visit Information Start: 03/12/19 17:39 Freq: Status: Active Protocol: Document 04/18/19 10:42 [facility] (Rec: 04/18/19 10:52 [facility] [email or web address]) Out-Patient Physical Therapy Visit Information Visit Information Visit Type Treatment Note Visit Start Time 09:45 Visit Stop Time 10:30 Total Visit Minutes 45 Visit Number 9 PT-OP-B Current Condition Start: 03/12/19 17:39 Freq: Status: Active Protocol: Document 03/07/19 16:03 [facility] (Rec: 03/12/19 18:11 [facility] [email or web address]) Current Condition History of Current Condition Onset Date chronic Current Complaints alternating left and right sided sacral pain History of Current Condition Yaritza 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 She does well with her home stabilization program and aquatic exercise but will experience flares of her sacral pain. Currently her pain is 3/10 and is present both left and right sides of her sacrum Treatment Goals Patient/Caregiver Goals pt's goals include decreasing pain and allowing her to continue with her walking and aquatic therapy routine without pain Current Functional Impairments (Reported) Functional Limitations- ADL's limited with activities that require bending and lifting Functional Limitations- Mobility/Gait pain with walking greater than 1 mile PT-OP-C Subjective Start: 03/12/19 17:39 Freq: Status: Active Protocol: Document 04/18/19 10:42 [facility] (Rec: 04/18/19 10:52 [facility] [email or web address]) OP-PT Subjective Patient Comments Patient Comments Yaritza neff notes she is doing much better today and the pain she was having on monday is now gone. PT-OP-F Manual Assessment Start: 03/12/19 17:39 Freq: Status: Active Protocol: Document 03/07/19 16:03 [facility] (Rec: 03/12/19 18:11 [facility] [email or web address]) Manual Assessments Soft Tissue Assessment Soft Tissue Mobility Assessment tightness in the piriformis muscle left greater than right , tightness Left ITB tightness of the lumbar and thoracic paraspinals left greater than right Joint Mobility Assessment Joint Mobility Assessment hypomobility of the thoracic spine with PA glides PT-OP-J Posture/Palpation/Skin Start: 03/12/19 17:39 Freq: Status: Active Protocol: Document 03/07/19 16:03 [facility] (Rec: 03/12/19 18:11 [facility] [email or web address]) Posture Evaluation Comments Posture Comments pt stands with a lateral shift to the left due to scoliosis Palpation Assessment Location Two Palpation Location thoracic paraspinals Palpation Findings Soft Tissue Tightness,Spasm, Muscle Guarding One Palpation Location PSIS and sacral NELY. saral base Palpation Findings Soft Tissue Tightness,Muscle Guarding,Tenderness Palpation Details tenderness on either side of the sacrum with muscle guarding, tenderness to palpation at the sacral base and PSIS bilaterally PT-OP-K Range of Motion Start: 03/12/19 18:12 Freq: Status: Active Protocol: Document 03/07/19 16:03 [facility] (Rec: 03/12/19 18:13 [facility] [email or web address]) Lumbar Spine Range of Motion Lumbar Spine Active Testing Position Standing Flexion 70 Lateral Flexion Left 55 Lateral Flexion Right 50 ROM Limitations Soft Tissue Tightness Comments c/o tightness in the sacrum with lumbar flexion activities PT-OP-M Strength Start: 03/12/19 17:39 Freq: Status: Active Protocol: Document 03/07/19 16:03 [facility] (Rec: 03/12/19 18:11 [facility] [email or web address]) Trunk Strength Trunk Manual Muscle Testing Core Stabilization Decreased stabilization of the SI joint, + ASLR test and pain in the SI joint with TA activation PT-OP-Q Treatments Start: 03/12/19 17:39 Freq: Status: Active Protocol: Document 04/18/19 10:42 [facility] (Rec: 04/18/19 10:52 [facility] [email or web address]) Therapeutic Exercises Supine Exercises 6 Supine Exercise Name supine diaphragmatic breathing Comments worked on the 16 count breath 5 Supine Exercise Name Foam roll stretch pectoralis stretch Other Exercises 6 Other Exercise Name aiden pose 4 Other Exercise Name quadruped pelvic tilts 3 Other Exercise Name quadraped sidebends/thoracic rotation Reps/Minutes x 5 reps Manual Therapy Treatment Soft Tissue Mobilization SCM release Body Location Right SCM release Mobilization Type Myofascial Release 4 Body Location left quadratus lumborum Mobilization Type Myofascial Release Body Position Supine 2 Body Location lumbar spine paraspinal release Body Position Prone Comments worked on releasing the left side of the lumbar paraspinals and Quadratus lumborum Joint Mobilizations 2 Joint PA mobilization thoracic spine T5-10 Direction PA Grade II Body Position Prone PT-OP-T Assessment and Plan Start: 03/12/19 17:39 Freq: Status: Active Protocol: Document 04/18/19 10:42 [facility] (Rec: 04/18/19 10:52 [facility] [email or web address]) Physical Therapy Assessment Assessment Summary Assessment decreased tightness today over the SCM on the right today, worked on thoracic mobilizations and releaseing the quadratus lumborum on the left. Pt may benefit from sideplanks on the right to activate the right quadratus lumborum. Physical Therapy Plan Frequency and Duration Frequency of Treatment 2x/Week Duration of Treatment 8 Plan of Care Start Date 03/07/19 Plan of Care End Date 05/02/19 Therapeutic Interventions Therapeutic Interventions Home Exercise Program,Joint Mobilizations,Manual Therapy, Neuromuscular Re-education, Patient/Caregiver Education, Self-Care/Home Management,Soft Tissue Mobilization, Therapeutic Exercises Discharge Physical Therapy Discharge Reasons [place] in Progress Discharge Comments Independent with home exercise program Next Visit Focus/Plan Next Note Type Treatment Note Next Visit Plan reassess cervical spine, trial of side plank on the right to begin strengthening right quadratus lumborum
--- NOTE | 2019-04-24 14:14 | PT.OTN ---
Current Diagnoses Other forms of scoliosis, lumbar region (04/24/19) Low back pain (04/24/19) Dorsalgia, unspecified (04/24/19) Physical Therapy Treatment Note PT-OP-A Visit Information Start: 03/12/19 17:39 Freq: Status: Active Protocol: Document 04/24/19 14:11 [facility] (Rec: 04/24/19 14:14 [facility] [email or web address]) Out-Patient Physical Therapy Visit Information Visit Information Visit Type Treatment Note Visit Start Time 09:45 Visit Stop Time 10:30 Total Visit Minutes 45 Visit Number 10 PT-OP-B Current Condition Start: 03/12/19 17:39 Freq: Status: Active Protocol: Document 03/07/19 16:03 [facility] (Rec: 03/12/19 18:11 [facility] [email or web address]) Current Condition History of Current Condition Onset Date chronic Current Complaints alternating left and right sided sacral pain History of Current Condition Yaritza 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 She does well with her home stabilization program and aquatic exercise but will experience flares of her sacral pain. Currently her pain is 3/10 and is present both left and right sides of her sacrum Treatment Goals Patient/Caregiver Goals pt's goals include decreasing pain and allowing her to continue with her walking and aquatic therapy routine without pain Current Functional Impairments (Reported) Functional Limitations- ADL's limited with activities that require bending and lifting Functional Limitations- Mobility/Gait pain with walking greater than 1 mile PT-OP-C Subjective Start: 03/12/19 17:39 Freq: Status: Active Protocol: Document 04/24/19 14:11 [facility] (Rec: 04/24/19 14:14 [facility] [email or web address]) OP-PT Subjective Patient Comments Patient Comments pt reports she is okay to begin trying side planks on the left to see if we can strengthen that side PT-OP-F Manual Assessment Start: 03/12/19 17:39 Freq: Status: Active Protocol: Document 03/07/19 16:03 [facility] (Rec: 03/12/19 18:11 [facility] [email or web address]) Manual Assessments Soft Tissue Assessment Soft Tissue Mobility Assessment tightness in the piriformis muscle left greater than right , tightness Left ITB tightness of the lumbar and thoracic paraspinals left greater than right Joint Mobility Assessment Joint Mobility Assessment hypomobility of the thoracic spine with PA glides PT-OP-J Posture/Palpation/Skin Start: 03/12/19 17:39 Freq: Status: Active Protocol: Document 03/07/19 16:03 [facility] (Rec: 03/12/19 18:11 [facility] [email or web address]) Posture Evaluation Comments Posture Comments pt stands with a lateral shift to the left due to scoliosis Palpation Assessment Location Two Palpation Location thoracic paraspinals Palpation Findings Soft Tissue Tightness,Spasm, Muscle Guarding One Palpation Location PSIS and sacral NELY. saral base Palpation Findings Soft Tissue Tightness,Muscle Guarding,Tenderness Palpation Details tenderness on either side of the sacrum with muscle guarding, tenderness to palpation at the sacral base and PSIS bilaterally PT-OP-K Range of Motion Start: 03/12/19 18:12 Freq: Status: Active Protocol: Document 03/07/19 16:03 [facility] (Rec: 03/12/19 18:13 [facility] [email or web address]) Lumbar Spine Range of Motion Lumbar Spine Active Testing Position Standing Flexion 70 Lateral Flexion Left 55 Lateral Flexion Right 50 ROM Limitations Soft Tissue Tightness Comments c/o tightness in the sacrum with lumbar flexion activities PT-OP-M Strength Start: 03/12/19 17:39 Freq: Status: Active Protocol: Document 03/07/19 16:03 [facility] (Rec: 03/12/19 18:11 [facility] [email or web address]) Trunk Strength Trunk Manual Muscle Testing Core Stabilization Decreased stabilization of the SI joint, + ASLR test and pain in the SI joint with TA activation PT-OP-Q Treatments Start: 03/12/19 17:39 Freq: Status: Active Protocol: Document 04/24/19 14:11 [facility] (Rec: 04/24/19 14:14 [facility] [email or web address]) Therapeutic Exercises Sidelying Exercises 1 Sidelying Exercise Name trial of left sided modified side plank against the wall Reps/Minutes 2 Comments convex side of scoliosis, Nini kept her body against the ground Manual Therapy Treatment Soft Tissue Mobilization 4 Body Location left quadratus lumborum Mobilization Type Myofascial Release Body Position Supine 2 Body Location lumbar spine paraspinal release Body Position Prone Comments worked on releasing the left side of the lumbar paraspinals and Quadratus lumborum PT-OP-T Assessment and Plan Start: 03/12/19 17:39 Freq: Status: Active Protocol: Document 04/24/19 14:11 [facility] (Rec: 04/24/19 14:14 [facility] [email or web address]) Physical Therapy Assessment Assessment Summary Assessment pt tolerated modified side plank against the wall, we did not have her lift off but rather just found the position with good form and this was enough for her back. Slowly work on strengthening the left QL Physical Therapy Plan Frequency and Duration Frequency of Treatment 2x/Week Duration of Treatment 8 Plan of Care Start Date 03/07/19 Plan of Care End Date 05/02/19 Therapeutic Interventions Therapeutic Interventions Home Exercise Program,Joint Mobilizations,Manual Therapy, Neuromuscular Re-education, Patient/Caregiver Education, Self-Care/Home Management,Soft Tissue Mobilization, Therapeutic Exercises
--- NOTE | 2019-08-27 18:57 | PT.OPPN ---
Current Diagnoses Other forms of scoliosis, lumbar region (08/27/19) Low back pain (08/27/19) Dorsalgia, unspecified (08/27/19) Physical Therapy Progress Note PT-OP-A Visit Information Start: 03/12/19 17:39 Freq: Status: Active Protocol: Document 08/22/19 18:51 [facility] (Rec: 08/27/19 18:57 [facility] [email or web address]) Out-Patient Physical Therapy Visit Information Visit Information Visit Type Progress Note Visit Start Time 13:45 Visit Stop Time 14:30 Total Visit Minutes 45 Visit Number 11 PT-OP-B Current Condition Start: 03/12/19 17:39 Freq: Status: Active Protocol: Document 08/22/19 18:51 [facility] (Rec: 08/27/19 18:57 [facility] [email or web address]) Current Condition History of Current Condition Onset Date chronic Current Complaints alternating left and right sided sacral pain History of Current Condition Yaritza 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 She does well with her home stabilization program and aquatic exercise but will experience flares of her sacral pain. Currently her pain is 3/10 and is present both left and right sides of her sacrum PT-OP-C Subjective Start: 03/12/19 17:39 Freq: Status: Active Protocol: Document 08/22/19 18:51 [facility] (Rec: 08/27/19 18:57 [facility] [email or web address]) OP-PT Subjective Patient Comments Patient Comments pt has not been seen since April 23 due to covid 19 pandemic. She returns to PT today with complaints of right sided upper cervical spine and sacral pain. She notes she has been walking and trying to do her exercises but she hasn't been able to use the pool. PT-OP-F Manual Assessment Start: 03/12/19 17:39 Freq: Status: Active Protocol: Document 03/07/19 16:03 [facility] (Rec: 03/12/19 18:11 [facility] [email or web address]) Manual Assessments Soft Tissue Assessment Soft Tissue Mobility Assessment tightness in the piriformis muscle left greater than right , tightness Left ITB tightness of the lumbar and thoracic paraspinals left greater than right Joint Mobility Assessment Joint Mobility Assessment hypomobility of the thoracic spine with PA glides PT-OP-J Posture/Palpation/Skin Start: 03/12/19 17:39 Freq: Status: Active Protocol: Document 03/07/19 16:03 [facility] (Rec: 03/12/19 18:11 [facility] [email or web address]) Posture Evaluation Comments Posture Comments pt stands with a lateral shift to the left due to scoliosis Palpation Assessment Location Two Palpation Location thoracic paraspinals Palpation Findings Soft Tissue Tightness,Spasm, Muscle Guarding One Palpation Location PSIS and sacral NELY. saral base Palpation Findings Soft Tissue Tightness,Muscle Guarding,Tenderness Palpation Details tenderness on either side of the sacrum with muscle guarding, tenderness to palpation at the sacral base and PSIS bilaterally PT-OP-K Range of Motion Start: 03/12/19 18:12 Freq: Status: Active Protocol: Document 03/07/19 16:03 [facility] (Rec: 03/12/19 18:13 [facility] [email or web address]) Lumbar Spine Range of Motion Lumbar Spine Active Testing Position Standing Flexion 70 Lateral Flexion Left 55 Lateral Flexion Right 50 ROM Limitations Soft Tissue Tightness Comments c/o tightness in the sacrum with lumbar flexion activities PT-OP-M Strength Start: 03/12/19 17:39 Freq: Status: Active Protocol: Document 03/07/19 16:03 [facility] (Rec: 03/12/19 18:11 [facility] [email or web address]) Trunk Strength Trunk Manual Muscle Testing Core Stabilization Decreased stabilization of the SI joint, + ASLR test and pain in the SI joint with TA activation PT-OP-T Assessment and Plan Start: 03/12/19 17:39 Freq: Status: Active Protocol: Document 08/22/19 18:51 [facility] (Rec: 08/27/19 18:57 [facility] [email or web address]) Physical Therapy Assessment Assessment Summary Assessment pt returns to PT today after not being seen since April 23 . She has been working on her exercises but realy missing the pool. She c/o right sided SCM tightness and right sided sacral pain. I worked on releasing the SCM today and manual therapy techniques for a gentle C1 mobilization. Yaritza Neff tolerated treatment well. She would like to continue PT at this time Physical Therapy Plan Frequency and Duration Frequency of Treatment 2x/Week Duration of Treatment 8 Plan of Care Start Date 08/22/19 Plan of Care End Date 10/17/19
--- NOTE | 2019-08-27 19:01 | PT.OPPOC ---
Physical, Occupational & Speech Therapy At [facility] Current Diagnoses Other forms of scoliosis, lumbar region (08/27/19) Low back pain (08/27/19) Dorsalgia, unspecified (08/27/19) Visit Care Team Role Provider Type Lan Gomes MD Attending Provider Physician Primary Care Provider Specialty: Family Practice Address: [address] [place] [address], [facility] Email: [email or web address] Plan Of Care PT-OP-T Assessment and Plan Start: 03/12/19 17:39 Freq: Status: Active Protocol: Document 08/22/19 18:51 [facility] (Rec: 08/27/19 18:57 [facility] [email or web address]) Physical Therapy Assessment Goals Four Impairment Decreased transverse abdominal stabilization Short Term Goal (STG) Yaritza Neff is able to perform TA stabilization with marches without any pain GOAL MET STG Duration 4 weeks Intermediate Goal (LTG) Yaritza Neff's core program for home is reviewed and she is properly performing her core stabilization exercises GOOD PROGRESS LTG Duration 8 weeks Three Impairment decreased lumbar spine ROM limited bending and lifting activities Intermediate Goal (LTG) Improve lumbar spine ROM to WFL for return to full function with ADL's include bending and lifting activities LTG Duration 8 weeks Two Impairment muscle imbalances of the piriformis creating a torque on the sacrum Drywall Hanger Helper Goal (LTG) improve flexibility of the piriformis on the left to reduce unequal pull on the sacrum LTG Duration 8 weeks One Impairment pain to palpation at the sacral borders due to sacral torsion Short Term Goal (STG) correct the sacral torsion with manual therapy techniques reducing pain at the sacrum STG Duration 6 weeks Assessment Summary Assessment pt returns to PT today after not being seen since April 23. She has been working on her exercises but realy missing the pool. She c/o right sided SCM tightness and right sided sacral pain. I worked on releasing the SCM today and manual therapy techniques for a gentle C1 mobilization. Yaritza Neff tolerated treatment well. She would like to continue PT at this time Physical Therapy Plan Frequency and Duration Frequency of Treatment 2x/Week Duration of Treatment 8 Plan of Care Start Date 08/22/19 Plan of Care End Date 10/17/19 Next Visit Focus/Plan Next Note Type Treatment Note Next Visit Plan return to postural exercise program, assess the SCM on the right and C1 position, MFR over the upper trapezius and lumbar parapinals Plan of Care Dates Plan of Care Start Date 08/22/19 Plan of Care End Date 10/17/19 Electronically Signed by: Danya Blanco, PT 08/27/19 0353 Please Sign and Return: I have reviewed this Plan of Care and certify that the skilled therapy services above are required to meet the patient?s needs. Physician Signature Date Printed Name and Credentials Clinical Instructor Signature Printed Name and Credentials
--- NOTE | 2019-08-27 19:02 | PT.OTN ---
Current Diagnoses Other forms of scoliosis, lumbar region (08/27/19) Low back pain (08/27/19) Dorsalgia, unspecified (08/27/19) Physical Therapy Treatment Note PT-OP-A Visit Information Start: 03/12/19 17:39 Freq: Status: Active Protocol: Document 08/22/19 18:51 [facility] (Rec: 08/27/19 18:57 [facility] [email or web address]) Out-Patient Physical Therapy Visit Information Visit Information Visit Type Progress Note Visit Start Time 13:45 Visit Stop Time 14:30 Total Visit Minutes 45 Visit Number 11 PT-OP-B Current Condition Start: 03/12/19 17:39 Freq: Status: Active Protocol: Document 08/22/19 18:51 [facility] (Rec: 08/27/19 18:57 [facility] [email or web address]) Current Condition History of Current Condition Onset Date chronic Current Complaints alternating left and right sided sacral pain History of Current Condition Yaritza 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 She does well with her home stabilization program and aquatic exercise but will experience flares of her sacral pain. Currently her pain is 3/10 and is present both left and right sides of her sacrum PT-OP-C Subjective Start: 03/12/19 17:39 Freq: Status: Active Protocol: Document 08/22/19 18:51 [facility] (Rec: 08/27/19 18:57 [facility] [email or web address]) OP-PT Subjective Patient Comments Patient Comments pt has not been seen since April 23 due to covid 19 pandemic. She returns to PT today with complaints of right sided upper cervical spine and sacral pain. She notes she has been walking and trying to do her exercises but she hasn't been able to use the pool. PT-OP-F Manual Assessment Start: 03/12/19 17:39 Freq: Status: Active Protocol: Document 03/07/19 16:03 [facility] (Rec: 03/12/19 18:11 [facility] [email or web address]) Manual Assessments Soft Tissue Assessment Soft Tissue Mobility Assessment tightness in the piriformis muscle left greater than right , tightness Left ITB tightness of the lumbar and thoracic paraspinals left greater than right Joint Mobility Assessment Joint Mobility Assessment hypomobility of the thoracic spine with PA glides PT-OP-J Posture/Palpation/Skin Start: 03/12/19 17:39 Freq: Status: Active Protocol: Document 03/07/19 16:03 [facility] (Rec: 03/12/19 18:11 [facility] [email or web address]) Posture Evaluation Comments Posture Comments pt stands with a lateral shift to the left due to scoliosis Palpation Assessment Location Two Palpation Location thoracic paraspinals Palpation Findings Soft Tissue Tightness,Spasm, Muscle Guarding One Palpation Location PSIS and sacral NELY. saral base Palpation Findings Soft Tissue Tightness,Muscle Guarding,Tenderness Palpation Details tenderness on either side of the sacrum with muscle guarding, tenderness to palpation at the sacral base and PSIS bilaterally PT-OP-K Range of Motion Start: 03/12/19 18:12 Freq: Status: Active Protocol: Document 03/07/19 16:03 [facility] (Rec: 03/12/19 18:13 [facility] [email or web address]) Lumbar Spine Range of Motion Lumbar Spine Active Testing Position Standing Flexion 70 Lateral Flexion Left 55 Lateral Flexion Right 50 ROM Limitations Soft Tissue Tightness Comments c/o tightness in the sacrum with lumbar flexion activities PT-OP-M Strength Start: 03/12/19 17:39 Freq: Status: Active Protocol: Document 03/07/19 16:03 [facility] (Rec: 03/12/19 18:11 [facility] [email or web address]) Trunk Strength Trunk Manual Muscle Testing Core Stabilization Decreased stabilization of the SI joint, + ASLR test and pain in the SI joint with TA activation PT-OP-Q Treatments Start: 03/12/19 17:39 Freq: Status: Active Protocol: Document 08/22/19 18:51 [facility] (Rec: 08/27/19 18:57 [facility] [email or web address]) Therapeutic Exercises Supine Exercises 7 Supine Exercise Name lower trunk rotation Reps/Minutes x 5 reps each side 6 Supine Exercise Name supine diaphragmatic breathing Comments worked on the 16 count breath Manual Therapy Treatment Soft Tissue Mobilization upper trapezius release Body Location upper trapezius release Mobilization Type Myofascial Release Body Position Supine SCM release Body Location Right SCM release Mobilization Type Myofascial Release 2 Body Location lumbar spine paraspinal release Body Position Prone Comments worked on releasing the left side of the lumbar paraspinals and Quadratus lumborum PT-OP-T Assessment and Plan Start: 03/12/19 17:39 Freq: Status: Active Protocol: Document 08/22/19 18:51 [facility] (Rec: 08/27/19 18:57 [facility] [email or web address]) Physical Therapy Assessment Goals Four Impairment Decreased transverse abdominal stabilization Short Term Goal (STG) Yaritza Neff is able to perform TA stabilization with marches without any pain GOAL MET STG Duration 4 weeks Vehicle And Equipment Cleaner Goal (LTG) Yaritza Neff's core program for home is reviewed and she is properly performing her core stabilization exercises GOOD PROGRESS LTG Duration 8 weeks Three Impairment decreased lumbar spine ROM limited bending and lifting activities Assisted Goal (LTG) Improve lumbar spine ROM to WFL for return to full function with ADL's include bending and lifting activities LTG Duration 8 weeks Two Impairment muscle imbalances of the piriformis creating a torque on the sacrum Assisted Goal (LTG) improve flexibility of the piriformis on the left to reduce unequal pull on the sacrum LTG Duration 8 weeks One Impairment pain to palpation at the sacral borders due to sacral torsion Short Term Goal (STG) correct the sacral torsion with manual therapy techniques reducing pain at the sacrum STG Duration 6 weeks Assessment Summary Assessment pt returns to PT today after not being seen since April 23 . She has been working on her exercises but realy missing the pool. She c/o right sided SCM tightness and right sided sacral pain. I worked on releasing the SCM today and manual therapy techniques for a gentle C1 mobilization. Yaritza Neff tolerated treatment well. She would like to continue PT at this time Physical Therapy Plan Frequency and Duration Frequency of Treatment 2x/Week Duration of Treatment 8 Plan of Care Start Date 08/22/19 Plan of Care End Date 10/17/19 Next Visit Focus/Plan Next Note Type Treatment Note Next Visit Plan return to postural exercise program, assess the SCM on the right and C1 position, MFR over the upper trapezius and lumbar parapinals
--- NOTE | 2019-08-27 19:07 | PT.OTN ---
Current Diagnoses Other forms of scoliosis, lumbar region (08/27/19) Low back pain (08/27/19) Dorsalgia, unspecified (08/27/19) Physical Therapy Treatment Note PT-OP-A Visit Information Start: 03/12/19 17:39 Freq: Status: Active Protocol: Document 08/27/19 19:02 [facility] (Rec: 08/27/19 19:07 [facility] [email or web address]) Out-Patient Physical Therapy Visit Information Visit Information Visit Type Treatment Note Visit Start Time 16:00 Visit Stop Time 16:45 Total Visit Minutes 45 Visit Number 12 PT-OP-B Current Condition Start: 03/12/19 17:39 Freq: Status: Active Protocol: Document 08/22/19 18:51 [facility] (Rec: 08/27/19 18:57 [facility] [email or web address]) Current Condition History of Current Condition Onset Date chronic Current Complaints alternating left and right sided sacral pain History of Current Condition Yaritza 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 She does well with her home stabilization program and aquatic exercise but will experience flares of her sacral pain. Currently her pain is 3/10 and is present both left and right sides of her sacrum PT-OP-C Subjective Start: 03/12/19 17:39 Freq: Status: Active Protocol: Document 08/27/19 19:02 [facility] (Rec: 08/27/19 19:07 [facility] [email or web address]) OP-PT Subjective Patient Comments Patient Comments pt notes her neck is feeling better and she hasn't felt the same pain she had last week PT-OP-F Manual Assessment Start: 03/12/19 17:39 Freq: Status: Active Protocol: Document 03/07/19 16:03 [facility] (Rec: 03/12/19 18:11 [facility] [email or web address]) Manual Assessments Soft Tissue Assessment Soft Tissue Mobility Assessment tightness in the piriformis muscle left greater than right , tightness Left ITB tightness of the lumbar and thoracic paraspinals left greater than right Joint Mobility Assessment Joint Mobility Assessment hypomobility of the thoracic spine with PA glides PT-OP-J Posture/Palpation/Skin Start: 03/12/19 17:39 Freq: Status: Active Protocol: Document 03/07/19 16:03 [facility] (Rec: 03/12/19 18:11 [facility] [email or web address]) Posture Evaluation Comments Posture Comments pt stands with a lateral shift to the left due to scoliosis Palpation Assessment Location Two Palpation Location thoracic paraspinals Palpation Findings Soft Tissue Tightness,Spasm, Muscle Guarding One Palpation Location PSIS and sacral NELY. saral base Palpation Findings Soft Tissue Tightness,Muscle Guarding,Tenderness Palpation Details tenderness on either side of the sacrum with muscle guarding, tenderness to palpation at the sacral base and PSIS bilaterally PT-OP-K Range of Motion Start: 03/12/19 18:12 Freq: Status: Active Protocol: Document 03/07/19 16:03 [facility] (Rec: 03/12/19 18:13 [facility] [email or web address]) Lumbar Spine Range of Motion Lumbar Spine Active Testing Position Standing Flexion 70 Lateral Flexion Left 55 Lateral Flexion Right 50 ROM Limitations Soft Tissue Tightness Comments c/o tightness in the sacrum with lumbar flexion activities PT-OP-M Strength Start: 03/12/19 17:39 Freq: Status: Active Protocol: Document 03/07/19 16:03 [facility] (Rec: 03/12/19 18:11 [facility] [email or web address]) Trunk Strength Trunk Manual Muscle Testing Core Stabilization Decreased stabilization of the SI joint, + ASLR test and pain in the SI joint with TA activation PT-OP-Q Treatments Start: 03/12/19 17:39 Freq: Status: Active Protocol: Document 08/27/19 19:02 [facility] (Rec: 08/27/19 19:07 [facility] [email or web address]) Therapeutic Exercises Supine Exercises 7 Supine Exercise Name lower trunk rotation Reps/Minutes x 5 reps each side Standing Exercises 1 Standing Exercise Name standing rows Reps/Minutes 3 x 10 reps Other Exercises 7 Other Exercise Name seated pelvic tilts, sidebends and rotations Reps/Minutes x 10 reps 1 Other Exercise Name seated ball thoracic seated horizontal abduction Reps/Minutes x 10 reps Manual Therapy Treatment Soft Tissue Mobilization 4 Body Location left quadratus lumborum Mobilization Type Myofascial Release Body Position Supine 2 Body Location lumbar spine paraspinal release Body Position Prone Comments worked on releasing the left side of the lumbar paraspinals and Quadratus lumborum PT-OP-T Assessment and Plan Start: 03/12/19 17:39 Freq: Status: Active Protocol: Document 08/27/19 19:02 [facility] (Rec: 08/27/19 19:07 [facility] [email or web address]) Physical Therapy Assessment Assessment Summary Assessment good tolerance today for postural exercises, decrease pain at the right SCM today Physical Therapy Plan Frequency and Duration Frequency of Treatment 2x/Week Duration of Treatment 8 Plan of Care Start Date 08/22/19 Plan of Care End Date 10/17/19 Therapeutic Interventions Therapeutic Interventions Home Exercise Program,Joint Mobilizations,Manual Therapy, Neuromuscular Re-education, Patient/Caregiver Education, Self-Care/Home Management,Soft Tissue Mobilization, Therapeutic Exercises
--- NOTE | 2019-09-03 18:23 | PT.OTN ---
Current Diagnoses Other forms of scoliosis, lumbar region (09/03/19) Low back pain (09/03/19) Dorsalgia, unspecified (09/03/19) Physical Therapy Treatment Note PT-OP-A Visit Information Start: 03/12/19 17:39 Freq: Status: Active Protocol: Document 09/03/19 08:59 [facility] (Rec: 09/03/19 09:35 [facility] [id number]) Out-Patient Physical Therapy Visit Information Visit Information Visit Type Treatment Note Visit Start Time 09:00 Visit Stop Time 09:45 Total Visit Minutes 45 Visit Number 13 PT-OP-B Current Condition Start: 03/12/19 17:39 Freq: Status: Active Protocol: Document 08/22/19 18:51 [facility] (Rec: 08/27/19 18:57 [facility] [email or web address]) Current Condition History of Current Condition Onset Date chronic Current Complaints alternating left and right sided sacral pain History of Current Condition Yaritza 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 She does well with her home stabilization program and aquatic exercise but will experience flares of her sacral pain. Currently her pain is 3/10 and is present both left and right sides of her sacrum PT-OP-C Subjective Start: 03/12/19 17:39 Freq: Status: Active Protocol: Document 09/03/19 08:59 [facility] (Rec: 09/03/19 09:35 [facility] [id number]) OP-PT Subjective Patient Comments Patient Comments Pt reports her neck is feeling better, when it is tight it moves into her jaw, she reports pain in the left groin and pain right sacrum/ tightness. SHe was able to go swimming monday afternoon. PT-OP-F Manual Assessment Start: 03/12/19 17:39 Freq: Status: Active Protocol: Document 03/07/19 16:03 [facility] (Rec: 03/12/19 18:11 [facility] [email or web address]) Manual Assessments Soft Tissue Assessment Soft Tissue Mobility Assessment tightness in the piriformis muscle left greater than right , tightness Left ITB tightness of the lumbar and thoracic paraspinals left greater than right Joint Mobility Assessment Joint Mobility Assessment hypomobility of the thoracic spine with PA glides PT-OP-J Posture/Palpation/Skin Start: 03/12/19 17:39 Freq: Status: Active Protocol: Document 03/07/19 16:03 [facility] (Rec: 03/12/19 18:11 [facility] [email or web address]) Posture Evaluation Comments Posture Comments pt stands with a lateral shift to the left due to scoliosis Palpation Assessment Location Two Palpation Location thoracic paraspinals Palpation Findings Soft Tissue Tightness,Spasm, Muscle Guarding One Palpation Location PSIS and sacral NELY. saral base Palpation Findings Soft Tissue Tightness,Muscle Guarding,Tenderness Palpation Details tenderness on either side of the sacrum with muscle guarding, tenderness to palpation at the sacral base and PSIS bilaterally PT-OP-K Range of Motion Start: 03/12/19 18:12 Freq: Status: Active Protocol: Document 03/07/19 16:03 [facility] (Rec: 03/12/19 18:13 [facility] [email or web address]) Lumbar Spine Range of Motion Lumbar Spine Active Testing Position Standing Flexion 70 Lateral Flexion Left 55 Lateral Flexion Right 50 ROM Limitations Soft Tissue Tightness Comments c/o tightness in the sacrum with lumbar flexion activities PT-OP-M Strength Start: 03/12/19 17:39 Freq: Status: Active Protocol: Document 03/07/19 16:03 [facility] (Rec: 03/12/19 18:11 [facility] [email or web address]) Trunk Strength Trunk Manual Muscle Testing Core Stabilization Decreased stabilization of the SI joint, + ASLR test and pain in the SI joint with TA activation PT-OP-Q Treatments Start: 03/12/19 17:39 Freq: Status: Active Protocol: Document 09/03/19 18:22 [facility] (Rec: 09/03/19 18:23 [facility] [id number]) Therapeutic Exercises Sitting Exercises 7 Sitting Exercise Name seated TA with opp arm lifts over head Equipment Used seated on gym ball 6 Sitting Exercise Name seated TA facilitation with marches on ball Equipment Used seated on gym ball 5 Sitting Exercise Name seated pelvic clocks on gym ball Reps/Minutes x 10 each direction 4 Sitting Exercise Name seated ball TA facilitation with opposite arm lifts overhead 3 Sitting Exercise Name seated ball pelvic tiltls, lateral tilts and pelvic clocks 2 Sitting Exercise Name seated ball TA facilitation with marching 1 Sitting Exercise Name seated sidebends Reps/Minutes x 4 each Manual Therapy Treatment Soft Tissue Mobilization 3 Body Location Bilateral piriformis release 2 Body Location lumbar spine paraspinal release Body Position Prone Comments worked on releasing the left side of the lumbar paraspinals and Quadratus lumborum 1 Body Location thoracic paraspinal MFR Body Position Supine Comments scalene and upper trapezius stretching PT-OP-T Assessment and Plan Start: 03/12/19 17:39 Freq: Status: Active Protocol: Document 09/03/19 08:59 [facility] (Rec: 09/03/19 09:35 [facility] [id number]) Physical Therapy Assessment Assessment Summary Assessment worked on seated ball postural exercises and core. Machias marches were bothering the right side of her sacrum so we stuck with opposite arm lifts overhead. Will review side plank exercise next visit Physical Therapy Plan Frequency and Duration Frequency of Treatment 2x/Week Duration of Treatment 8 Plan of Care Start Date 08/22/19 Plan of Care End Date 10/17/19 Therapeutic Interventions Therapeutic Interventions Home Exercise Program,Joint Mobilizations,Manual Therapy, Neuromuscular Re-education, Patient/Caregiver Education, Self-Care/Home Management,Soft Tissue Mobilization, Therapeutic Exercises Next Visit Focus/Plan Next Note Type Treatment Note Next Visit Plan review sideplanks for scoliosis next visit, MFR, postural exercise program
--- NOTE | 2019-09-12 16:00 | PT.OTN ---
Current Diagnoses Other forms of scoliosis, lumbar region (09/12/19) Low back pain (09/12/19) Dorsalgia, unspecified (09/12/19) Physical Therapy Treatment Note PT-OP-A Visit Information Start: 03/12/19 17:39 Freq: Status: Active Protocol: Document 09/12/19 16:00 [facility] (Rec: 09/26/19 09:19 [facility] [email or web address]) Out-Patient Physical Therapy Visit Information Visit Information Visit Type Treatment Note Visit Start Time 16:00 Visit Stop Time 16:45 Total Visit Minutes 45 Visit Number 14 PT-OP-B Current Condition Start: 03/12/19 17:39 Freq: Status: Active Protocol: Document 08/22/19 18:51 [facility] (Rec: 08/27/19 18:57 [facility] [email or web address]) Current Condition History of Current Condition Onset Date chronic Current Complaints alternating left and right sided sacral pain History of Current Condition Yaritza 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 She does well with her home stabilization program and aquatic exercise but will experience flares of her sacral pain. Currently her pain is 3/10 and is present both left and right sides of her sacrum PT-OP-C Subjective Start: 03/12/19 17:39 Freq: Status: Active Protocol: Document 09/12/19 16:00 [facility] (Rec: 09/26/19 09:19 [facility] [email or web address]) OP-PT Subjective Patient Comments Patient Comments pt describes ITB tightness and tightness surrounding the sacral region. She wishes to review her exercises today PT-OP-F Manual Assessment Start: 03/12/19 17:39 Freq: Status: Active Protocol: Document 03/07/19 16:03 [facility] (Rec: 03/12/19 18:11 [facility] [email or web address]) Manual Assessments Soft Tissue Assessment Soft Tissue Mobility Assessment tightness in the piriformis muscle left greater than right , tightness Left ITB tightness of the lumbar and thoracic paraspinals left greater than right Joint Mobility Assessment Joint Mobility Assessment hypomobility of the thoracic spine with PA glides PT-OP-J Posture/Palpation/Skin Start: 03/12/19 17:39 Freq: Status: Active Protocol: Document 03/07/19 16:03 [facility] (Rec: 03/12/19 18:11 [facility] [email or web address]) Posture Evaluation Comments Posture Comments pt stands with a lateral shift to the left due to scoliosis Palpation Assessment Location Two Palpation Location thoracic paraspinals Palpation Findings Soft Tissue Tightness,Spasm, Muscle Guarding One Palpation Location PSIS and sacral NELY. saral base Palpation Findings Soft Tissue Tightness,Muscle Guarding,Tenderness Palpation Details tenderness on either side of the sacrum with muscle guarding, tenderness to palpation at the sacral base and PSIS bilaterally PT-OP-K Range of Motion Start: 03/12/19 18:12 Freq: Status: Active Protocol: Document 03/07/19 16:03 [facility] (Rec: 03/12/19 18:13 [facility] [email or web address]) Lumbar Spine Range of Motion Lumbar Spine Active Testing Position Standing Flexion 70 Lateral Flexion Left 55 Lateral Flexion Right 50 ROM Limitations Soft Tissue Tightness Comments c/o tightness in the sacrum with lumbar flexion activities PT-OP-M Strength Start: 03/12/19 17:39 Freq: Status: Active Protocol: Document 03/07/19 16:03 [facility] (Rec: 03/12/19 18:11 [facility] [email or web address]) Trunk Strength Trunk Manual Muscle Testing Core Stabilization Decreased stabilization of the SI joint, + ASLR test and pain in the SI joint with TA activation PT-OP-Q Treatments Start: 03/12/19 17:39 Freq: Status: Active Protocol: Document 09/12/19 16:00 [facility] (Rec: 09/26/19 09:19 [facility] [email or web address]) Therapeutic Exercises Sitting Exercises 2 Sitting Exercise Name seated ball TA facilitation with marching 1 Sitting Exercise Name seated sidebends Reps/Minutes x 4 each Other Exercises 7 Other Exercise Name seated pelvic tilts, sidebends and rotations Reps/Minutes x 10 reps 1 Other Exercise Name seated ball thoracic seated horizontal abduction Reps/Minutes x 10 reps Manual Therapy Treatment Soft Tissue Mobilization 3 Body Location Bilateral piriformis release 2 Body Location lumbar spine paraspinal release Body Position Prone Comments worked on releasing the left side of the lumbar paraspinals and Quadratus lumborum 1 Body Location thoracic paraspinal MFR Body Position Supine Comments scalene and upper trapezius stretching PT-OP-T Assessment and Plan Start: 03/12/19 17:39 Freq: Status: Active Protocol: Document 09/12/19 16:00 [facility] (Rec: 09/26/19 09:19 [facility] [email or web address]) Physical Therapy Assessment Assessment Summary Assessment Stabilization exercises were reviewed and manual therapy techniques were used today to help align the pelvis take take pressure off the sacral region Physical Therapy Plan Frequency and Duration Frequency of Treatment 2x/Week Duration of Treatment 8 Plan of Care Start Date 08/22/19 Plan of Care End Date 10/17/19 Next Visit Focus/Plan Next Note Type Treatment Note Next Visit Plan review sideplanks for scoliosos next visit, MFR, postural exercise program
--- NOTE | 2019-10-02 16:15 | PT.OTN ---
Current Diagnoses Other forms of scoliosis, lumbar region (10/02/19) Low back pain (10/02/19) Dorsalgia, unspecified (10/02/19) Physical Therapy Treatment Note PT-OP-A Visit Information Start: 03/12/19 17:39 Freq: Status: Active Protocol: Document 10/02/19 16:11 [facility] (Rec: 10/02/19 16:15 [facility] [id number]) Out-Patient Physical Therapy Visit Information Visit Information Visit Type Treatment Note Visit Start Time 12:45 Visit Stop Time 13:30 Total Visit Minutes 45 Visit Number 15 PT-OP-B Current Condition Start: 03/12/19 17:39 Freq: Status: Active Protocol: Document 08/22/19 18:51 [facility] (Rec: 08/27/19 18:57 [facility] [email or web address]) Current Condition History of Current Condition Onset Date chronic Current Complaints alternating left and right sided sacral pain History of Current Condition Yaritza 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 She does well with her home stabilization program and aquatic exercise but will experience flares of her sacral pain. Currently her pain is 3/10 and is present both left and right sides of her sacrum PT-OP-C Subjective Start: 03/12/19 17:39 Freq: Status: Active Protocol: Document 10/02/19 16:11 [facility] (Rec: 10/02/19 16:15 [facility] [id number]) OP-PT Subjective Patient Comments Patient Comments Yaritza Neff would like to review her UE weights and postural exercises. PT-OP-F Manual Assessment Start: 03/12/19 17:39 Freq: Status: Active Protocol: Document 03/07/19 16:03 [facility] (Rec: 03/12/19 18:11 [facility] [email or web address]) Manual Assessments Soft Tissue Assessment Soft Tissue Mobility Assessment tightness in the piriformis muscle left greater than right , tightness Left ITB tightness of the lumbar and thoracic paraspinals left greater than right Joint Mobility Assessment Joint Mobility Assessment hypomobility of the thoracic spine with PA glides PT-OP-J Posture/Palpation/Skin Start: 03/12/19 17:39 Freq: Status: Active Protocol: Document 03/07/19 16:03 [facility] (Rec: 03/12/19 18:11 [facility] [email or web address]) Posture Evaluation Comments Posture Comments pt stands with a lateral shift to the left due to scoliosis Palpation Assessment Location Two Palpation Location thoracic paraspinals Palpation Findings Soft Tissue Tightness,Spasm, Muscle Guarding One Palpation Location PSIS and sacral NELY. saral base Palpation Findings Soft Tissue Tightness,Muscle Guarding,Tenderness Palpation Details tenderness on either side of the sacrum with muscle guarding, tenderness to palpation at the sacral base and PSIS bilaterally PT-OP-K Range of Motion Start: 03/12/19 18:12 Freq: Status: Active Protocol: Document 03/07/19 16:03 [facility] (Rec: 03/12/19 18:13 [facility] [email or web address]) Lumbar Spine Range of Motion Lumbar Spine Active Testing Position Standing Flexion 70 Lateral Flexion Left 55 Lateral Flexion Right 50 ROM Limitations Soft Tissue Tightness Comments c/o tightness in the sacrum with lumbar flexion activities PT-OP-M Strength Start: 03/12/19 17:39 Freq: Status: Active Protocol: Document 03/07/19 16:03 [facility] (Rec: 03/12/19 18:11 [facility] [email or web address]) Trunk Strength Trunk Manual Muscle Testing Core Stabilization Decreased stabilization of the SI joint, + ASLR test and pain in the SI joint with TA activation PT-OP-Q Treatments Start: 03/12/19 17:39 Freq: Status: Active Protocol: Document 10/02/19 16:11 [facility] (Rec: 10/02/19 16:15 [facility] [id number]) Therapeutic Exercises Standing Exercises 4 Standing Exercise Name standing theraband ER Reps/Minutes level 1 3 x 10 reps 3 Standing Exercise Name standing bicep curls Reps/Minutes 4 # 3x10 reps 6 Standing Exercise Name tricep extensions Reps/Minutes 2# 2x 10 reps 2 Standing Exercise Name standing rows Reps/Minutes level 2 2x 10 reps 1 Standing Exercise Name standing bent rows Equipment Used 4 weights Reps/Minutes 3 x 10 reps Manual Therapy Treatment Soft Tissue Mobilization 2 Body Location lumbar spine paraspinal release Body Position Prone Comments worked on releasing the left side of the lumbar paraspinals and Quadratus lumborum 1 Body Location thoracic paraspinal MFR Body Position Supine Comments scalene and upper trapezius stretching PT-OP-T Assessment and Plan Start: 03/12/19 17:39 Freq: Status: Active Protocol: Document 10/02/19 16:11 [facility] (Rec: 10/02/19 16:15 [facility] [id number]) Physical Therapy Assessment Assessment Summary Assessment Yaritza Neff has been doing better as she is able to get back in the pool now. SHe was ready to begin adding in more postural exercises today and she tolerated these well. Physical Therapy Plan Frequency and Duration Frequency of Treatment 2x/Week Duration of Treatment 8 Plan of Care Start Date 08/22/19 Plan of Care End Date 10/17/19
--- NOTE | 2019-11-12 11:38 | PT.OTN ---
Current Diagnoses Other forms of scoliosis, lumbar region (11/12/19) Low back pain (11/12/19) Dorsalgia, unspecified (11/12/19) Physical Therapy Treatment Note PT-OP-A Visit Information Start: 03/12/19 17:39 Freq: Status: Active Protocol: Document 11/12/19 11:27 [facility] (Rec: 11/12/19 11:38 [facility] [id number]) Out-Patient Physical Therapy Visit Information Visit Information Visit Type Progress Note Visit Start Time 09:00 Visit Stop Time 09:45 Total Visit Minutes 45 Visit Number 16 Number of [employer] Visits 0 PT-OP-B Current Condition Start: 03/12/19 17:39 Freq: Status: Active Protocol: Document 08/22/19 18:51 [facility] (Rec: 08/27/19 18:57 [facility] [email or web address]) Current Condition History of Current Condition Onset Date chronic Current Complaints alternating left and right sided sacral pain History of Current Condition Yaritza 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 She does well with her home stabilization program and aquatic exercise but will experience flares of her sacral pain. Currently her pain is 3/10 and is present both left and right sides of her sacrum PT-OP-C Subjective Start: 03/12/19 17:39 Freq: Status: Active Protocol: Document 11/12/19 11:27 [facility] (Rec: 11/12/19 11:38 [facility] [id number]) OP-PT Subjective Patient Comments Patient Comments Yaritza Neff reports she has been doing good with getting in the pool. She is dealing with fungal infections on her hands now though and is wondering if there are water proof gloves she can wear. She is tight today in the right sacral region and inner thighs more on the right PT-OP-F Manual Assessment Start: 03/12/19 17:39 Freq: Status: Active Protocol: Document 03/07/19 16:03 [facility] (Rec: 03/12/19 18:11 [facility] [email or web address]) Manual Assessments Soft Tissue Assessment Soft Tissue Mobility Assessment tightness in the piriformis muscle left greater than right , tightness Left ITB tightness of the lumbar and thoracic paraspinals left greater than right Joint Mobility Assessment Joint Mobility Assessment hypomobility of the thoracic spine with PA glides PT-OP-J Posture/Palpation/Skin Start: 03/12/19 17:39 Freq: Status: Active Protocol: Document 03/07/19 16:03 [facility] (Rec: 03/12/19 18:11 [facility] [email or web address]) Posture Evaluation Comments Posture Comments pt stands with a lateral shift to the left due to scoliosis Palpation Assessment Location Two Palpation Location thoracic paraspinals Palpation Findings Soft Tissue Tightness,Spasm, Muscle Guarding One Palpation Location PSIS and sacral NELY. saral base Palpation Findings Soft Tissue Tightness,Muscle Guarding,Tenderness Palpation Details tenderness on either side of the sacrum with muscle guarding, tenderness to palpation at the sacral base and PSIS bilaterally PT-OP-K Range of Motion Start: 03/12/19 18:12 Freq: Status: Active Protocol: Document 03/07/19 16:03 [facility] (Rec: 03/12/19 18:13 [facility] [email or web address]) Lumbar Spine Range of Motion Lumbar Spine Active Testing Position Standing Flexion 70 Lateral Flexion Left 55 Lateral Flexion Right 50 ROM Limitations Soft Tissue Tightness Comments c/o tightness in the sacrum with lumbar flexion activities PT-OP-M Strength Start: 03/12/19 17:39 Freq: Status: Active Protocol: Document 03/07/19 16:03 [facility] (Rec: 03/12/19 18:11 [facility] [email or web address]) Trunk Strength Trunk Manual Muscle Testing Core Stabilization Decreased stabilization of the SI joint, + ASLR test and pain in the SI joint with TA activation PT-OP-Q Treatments Start: 03/12/19 17:39 Freq: Status: Active Protocol: Document 11/12/19 11:27 [facility] (Rec: 11/12/19 11:38 [facility] [id number]) Therapeutic Exercises Sitting Exercises seated adductor stretch Sitting Exercise Name seated with bolster/pillows in front of her Comments tried both stretching forward with both legs as well as one leg out at a ti Manual Therapy Treatment Soft Tissue Mobilization 3 Body Location Bilateral piriformis release Comments right sided piriformis tightness today 2 Body Location lumbar spine paraspinal release Body Position Prone Comments worked on releasing the left side of the lumbar paraspinals and Quadratus lumborum 1 Body Location thoracic paraspinal MFR Body Position Supine Comments scalene and upper trapezius stretching PT-OP-T Assessment and Plan Start: 03/12/19 17:39 Freq: Status: Active Protocol: Document 11/12/19 11:27 [facility] (Rec: 11/12/19 11:38 [facility] [id number]) Physical Therapy Assessment Goals Four Impairment Decreased transverse abdominal stabilization Short Term Goal (STG) Yartiza Neff is able to perform TA stabilization with marches without any pain GOAL MET STG Duration [address] Cutter Goal (LTG) Yaritza Neff's core program for home is reviewed and she is properly performing her core stabilization exercises GOOD PROGRESS LTG Duration 8 weeks Three Impairment decreased lumbar spine ROM limited bending and lifting activities Right Of Way Cutter Goal (LTG) Improve lumbar spine ROM to WFL for return to full function with ADL's include bending and lifting activities Excellent progress LTG Duration 8 weeks Two Impairment muscle imbalances of the piriformis creating a torque on the sacrum Senior Care Goal (LTG) improve flexibility of the piriformis on the left to reduce unequal pull on the sacrum Good progress as Yaritza Neff has been able to return to her aquatic therapy program LTG Duration 8 weeks One Impairment pain to palpation at the sacral borders due to sacral torsion Short Term Goal (STG) correct the sacral torsion with manual therapy techniques reducing pain at the sacrum Excellent progress STG Duration 6 weeks Assessment Summary Assessment Yaritza Neff has been doing better as she has been able to get back in the pool for exercises. She is working on her home stretching routine as well. Even with that she tends to get tight in the sacral region and piriformis. Yraitza neff has 4 visits left in PT which she would like to use spread out. Physical Therapy Plan Frequency and Duration Frequency of Treatment 1x/Week Duration of Treatment 8 Plan of Care Start Date 11/12/19 Plan of Care End Date 01/14/20 Therapeutic Interventions Therapeutic Interventions Home Exercise Program,Joint Mobilizations,Manual Therapy, Neuromuscular Re-education, Patient/Caregiver Education, Self-Care/Home Management,Soft Tissue Mobilization, Therapeutic Exercises Next Visit Focus/Plan Next Note Type Treatment Note Next Visit Plan review sideplanks for scoliosos next visit, MFR, postural exercise program
--- NOTE | 2019-11-12 11:39 | PT.OPPOC ---
Physical, Occupational & Speech Therapy At Current Diagnoses Other forms of scoliosis, lumbar region (11/12/19) Low back pain (11/12/19) Dorsalgia, unspecified (11/12/19) Visit Care Team Role Provider Type Lan Gomes MD Attending Provider Physician Primary Care Provider Specialty: Family Practice Address: [address] [place] [address], [facility] Email: [email or web address] Plan Of Care PT-OP-T Assessment and Plan Start: 03/12/19 17:39 Freq: Status: Active Protocol: Document 11/12/19 11:27 [facility] (Rec: 11/12/19 11:38 [facility] [id number]) Physical Therapy Assessment Goals Four Impairment Decreased transverse abdominal stabilization Short Term Goal (STG) Yaritza Neff is able to perform TA stabilization with marches without any pain GOAL MET STG Duration 4 weeks Welcome Hostess Goal (LTG) Yaritza Neff's core program for home is reviewed and she is properly performing her core stabilization exercises GOOD PROGRESS LTG Duration 8 weeks Three Impairment decreased lumbar spine ROM limited bending and lifting activities Snf Goal (LTG) Improve lumbar spine ROM to WFL for return to full function with ADL's include bending and lifting activities Excellent progress LTG Duration 8 weeks Two Impairment muscle imbalances of the piriformis creating a torque on the sacrum Welcome Hostess Goal (LTG) improve flexibility of the piriformis on the left to reduce unequal pull on the sacrum Good progress as Yaritza Neff has been able to return to her aquatic therapy program LTG Duration 8 weeks One Impairment pain to palpation at the sacral borders due to sacral torsion Short Term Goal (STG) correct the sacral torsion with manual therapy techniques reducing pain at the sacrum Excellent progress STG Duration 6 weeks Assessment Summary Assessment Yaritza Neff has been doing better as she has been able to get back in the pool for exercises. She is working on her home stretching routine as well. Even with that she tends to get tight in the sacral region and piriformis. Yaritza Neff has 4 visits left in PT which she would like to use spread out. Physical Therapy Plan Frequency and Duration Frequency of Treatment 1x/Week Duration of Treatment 8 Plan of Care Start Date 11/12/19 Plan of Care End Date 01/14/20 Therapeutic Interventions Therapeutic Interventions Home Exercise Program,Joint Mobilizations,Manual Therapy, Neuromuscular Re-education, Patient/Caregiver Education, Self-Care/Home Management,Soft Tissue Mobilization, Therapeutic Exercises Next Visit Focus/Plan Next Note Type Treatment Note Next Visit Plan review sideplanks for scoliosis next visit, MFR, postural exercise program Plan of Care Dates Plan of Care Start Date 11/12/19 Plan of Care End Date 01/14/20 Electronically Signed by: Danya Blanco, PT 11/12/19 [id number] Please Sign and Return: I have reviewed this Plan of Care and certify that the skilled therapy services above are required to meet the patient?s needs. Physician Signature Date Printed Name and Credentials Clinical Instructor Signature Printed Name and Credentials
--- NOTE | 2019-12-12 18:11 | PT.OTN ---
Current Diagnoses Other forms of scoliosis, lumbar region (12/12/19) Low back pain (12/12/19) Dorsalgia, unspecified (12/12/19) Physical Therapy Treatment Note PT-OP-A Visit Information Start: 03/12/19 17:39 Freq: Status: Active Protocol: Document 12/12/19 18:06 [facility] (Rec: 12/12/19 18:11 [facility] [email or web address]) Out-Patient Physical Therapy Visit Information Visit Information Visit Type Treatment Note Visit Start Time 10:30 Visit Stop Time 11:15 Total Visit Minutes 45 Visit Number 17 PT-OP-B Current Condition Start: 03/12/19 17:39 Freq: Status: Active Protocol: Document 08/22/19 18:51 [facility] (Rec: 08/27/19 18:57 [facility] [email or web address]) Current Condition History of Current Condition Onset Date chronic Current Complaints alternating left and right sided sacral pain History of Current Condition Yaritza 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 She does well with her home stabilization program and aquatic exercise but will experience flares of her sacral pain. Currently her pain is 3/10 and is present both left and right sides of her sacrum PT-OP-C Subjective Start: 03/12/19 17:39 Freq: Status: Active Protocol: Document 12/12/19 18:06 [facility] (Rec: 12/12/19 18:11 [facility] [email or web address]) OP-PT Subjective Patient Comments Patient Comments Yaritza Neff has been getting into the pool for her exercises regularly. SHe notes she has been experiencing right sided gluteal symptoms including tightness in her right gluteals PT-OP-F Manual Assessment Start: 03/12/19 17:39 Freq: Status: Active Protocol: Document 03/07/19 16:03 [facility] (Rec: 03/12/19 18:11 [facility] [email or web address]) Manual Assessments Soft Tissue Assessment Soft Tissue Mobility Assessment tightness in the piriformis muscle left greater than right , tightness Left ITB tightness of the lumbar and thoracic paraspinals left greater than right Joint Mobility Assessment Joint Mobility Assessment hypomobility of the thoracic spine with PA glides PT-OP-J Posture/Palpation/Skin Start: 03/12/19 17:39 Freq: Status: Active Protocol: Document 03/07/19 16:03 [facility] (Rec: 03/12/19 18:11 [facility] [email or web address]) Posture Evaluation Comments Posture Comments pt stands with a lateral shift to the left due to scoliosis Palpation Assessment Location Two Palpation Location thoracic paraspinals Palpation Findings Soft Tissue Tightness,Spasm, Muscle Guarding One Palpation Location PSIS and sacral NELY. saral base Palpation Findings Soft Tissue Tightness,Muscle Guarding,Tenderness Palpation Details tenderness on either side of the sacrum with muscle guarding, tenderness to palpation at the sacral base and PSIS bilaterally PT-OP-K Range of Motion Start: 03/12/19 18:12 Freq: Status: Active Protocol: Document 03/07/19 16:03 [facility] (Rec: 03/12/19 18:13 [facility] [email or web address]) Lumbar Spine Range of Motion Lumbar Spine Active Testing Position Standing Flexion 70 Lateral Flexion Left 55 Lateral Flexion Right 50 ROM Limitations Soft Tissue Tightness Comments c/o tightness in the sacrum with lumbar flexion activities PT-OP-M Strength Start: 03/12/19 17:39 Freq: Status: Active Protocol: Document 03/07/19 16:03 [facility] (Rec: 03/12/19 18:11 [facility] [email or web address]) Trunk Strength Trunk Manual Muscle Testing Core Stabilization Decreased stabilization of the SI joint, + ASLR test and pain in the SI joint with TA activation PT-OP-Q Treatments Start: 03/12/19 17:39 Freq: Status: Active Protocol: Document 12/12/19 18:06 [facility] (Rec: 12/12/19 18:11 [facility] [email or web address]) Therapeutic Exercises Supine Exercises supine piriformis release with miracle balls Supine Exercise Name self release with miracle balls to the piriformis 1 Supine Exercise Name supine LTR with windshield wipers Reps/Minutes x 5 each side Sitting Exercises seated adductor stretch Sitting Exercise Name seated with bolster/pillows in front of her Comments tried both stretching forward with both legs as well as one leg out at a ti Manual Therapy Treatment Soft Tissue Mobilization 2 Body Location lumbar spine paraspinal release Body Position Prone Comments worked on releasing the left side of the lumbar paraspinals and Quadratus lumborum 1 Body Location thoracic paraspinal MFR Body Position Supine Comments scalene and upper trapezius stretching PT-OP-T Assessment and Plan Start: 03/12/19 17:39 Freq: Status: Active Protocol: Document 12/12/19 18:06 [facility] (Rec: 12/12/19 18:11 [facility] [email or web address]) Physical Therapy Assessment Assessment Summary Assessment Yaritza neff was shown self release with the miracle balls and we reviewed her adductor stretches. She is doing good with her home exercises and water walking routine. HEr scoliosis can create muscular imbalances and today she was tight left paraspinals and right gluteal region
--- NOTE | 2019-12-19 17:33 | PT.OTN ---
Current Diagnoses Other forms of scoliosis, lumbar region (12/19/19) Low back pain (12/19/19) Dorsalgia, unspecified (12/19/19) Physical Therapy Treatment Note PT-OP-A Visit Information Start: 03/12/19 17:39 Freq: Status: Active Protocol: Document 12/19/19 17:24 [facility] (Rec: 12/19/19 17:32 [facility] [email or web address]) Out-Patient Physical Therapy Visit Information Visit Information Visit Type Treatment Note Visit Start Time 09:00 Visit Stop Time 09:45 Total Visit Minutes 45 Visit Number 18 PT-OP-B Current Condition Start: 03/12/19 17:39 Freq: Status: Active Protocol: Document 08/22/19 18:51 [facility] (Rec: 08/27/19 18:57 [facility] [email or web address]) Current Condition History of Current Condition Onset Date chronic Current Complaints alternating left and right sided sacral pain History of Current Condition Yaritza 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 She does well with her home stabilization program and aquatic exercise but will experience flares of her sacral pain. Currently her pain is 3/10 and is present both left and right sides of her sacrum PT-OP-C Subjective Start: 03/12/19 17:39 Freq: Status: Active Protocol: Document 12/19/19 17:24 [facility] (Rec: 12/19/19 17:32 [facility] [email or web address]) OP-PT Subjective Patient Comments Patient Comments Yaritza Neff reports she has been working on her exercises. She has questions regarding her adductor stretch PT-OP-F Manual Assessment Start: 03/12/19 17:39 Freq: Status: Active Protocol: Document 03/07/19 16:03 [facility] (Rec: 03/12/19 18:11 [facility] [email or web address]) Manual Assessments Soft Tissue Assessment Soft Tissue Mobility Assessment tightness in the piriformis muscle left greater than right , tightness Left ITB tightness of the lumbar and thoracic paraspinals left greater than right Joint Mobility Assessment Joint Mobility Assessment hypomobility of the thoracic spine with PA glides PT-OP-J Posture/Palpation/Skin Start: 03/12/19 17:39 Freq: Status: Active Protocol: Document 03/07/19 16:03 [facility] (Rec: 03/12/19 18:11 [facility] [email or web address]) Posture Evaluation Comments Posture Comments pt stands with a lateral shift to the left due to scoliosis Palpation Assessment Location Two Palpation Location thoracic paraspinals Palpation Findings Soft Tissue Tightness,Spasm, Muscle Guarding One Palpation Location PSIS and sacral NELY. saral base Palpation Findings Soft Tissue Tightness,Muscle Guarding,Tenderness Palpation Details tenderness on either side of the sacrum with muscle guarding, tenderness to palpation at the sacral base and PSIS bilaterally PT-OP-K Range of Motion Start: 03/12/19 18:12 Freq: Status: Active Protocol: Document 03/07/19 16:03 [facility] (Rec: 03/12/19 18:13 [facility] [email or web address]) Lumbar Spine Range of Motion Lumbar Spine Active Testing Position Standing Flexion 70 Lateral Flexion Left 55 Lateral Flexion Right 50 ROM Limitations Soft Tissue Tightness Comments c/o tightness in the sacrum with lumbar flexion activities PT-OP-M Strength Start: 03/12/19 17:39 Freq: Status: Active Protocol: Document 03/07/19 16:03 [facility] (Rec: 03/12/19 18:11 [facility] [email or web address]) Trunk Strength Trunk Manual Muscle Testing Core Stabilization Decreased stabilization of the SI joint, + ASLR test and pain in the SI joint with TA activation PT-OP-Q Treatments Start: 03/12/19 17:39 Freq: Status: Active Protocol: Document 12/19/19 17:24 [facility] (Rec: 12/19/19 17:32 [facility] [email or web address]) Therapeutic Exercises Supine Exercises 1 Supine Exercise Name supine LTR with windshield wipers Reps/Minutes x 5 each side Standing Exercises 1 Standing Exercise Name standing adductor stretch Comments uses the table for upper body support Manual Therapy Treatment Soft Tissue Mobilization 4 Body Location left quadratus lumborum Mobilization Type Myofascial Release Body Position Supine 3 Body Location Bilateral piriformis release Comments right sided piriformis tightness today 2 Body Location lumbar spine paraspinal release Body Position Prone Comments worked on releasing the left side of the lumbar paraspinals and Quadratus lumborum 1 Body Location thoracic paraspinal MFR Body Position Supine Comments scalene and upper trapezius stretching PT-OP-T Assessment and Plan Start: 03/12/19 17:39 Freq: Status: Active Protocol: Document 12/19/19 17:24 [facility] (Rec: 12/19/19 17:32 [facility] [email or web address]) Physical Therapy Assessment Assessment Summary Assessment stretches were reviewed today for Darius, I reviewed her standing rows and thoracic extension as well. She was not as tight in her piriformis today Physical Therapy Plan Frequency and Duration Frequency of Treatment 1x/Week Duration of Treatment 8 Plan of Care Start Date 11/12/19 Plan of Care End Date 01/14/20 Therapeutic Interventions Therapeutic Interventions Home Exercise Program,Joint Mobilizations,Manual Therapy, Neuromuscular Re-education, Patient/Caregiver Education, Self-Care/Home Management,Soft Tissue Mobilization, Therapeutic Exercises Next Visit Focus/Plan Next Note Type Treatment Note Next Visit Plan continue progressing stretches and postural exercises as tolerated
--- NOTE | 2020-02-05 14:43 | PT.OTN ---
Current Diagnoses Other forms of scoliosis, lumbar region (02/05/20) Low back pain (02/05/20) Dorsalgia, unspecified (02/05/20) Physical Therapy Treatment Note PT-OP-A Visit Information Start: 03/12/19 17:39 Freq: Status: Active Protocol: Document 02/05/20 14:37 [facility] (Rec: 02/05/20 14:41 [facility] [email or web address]) Out-Patient Physical Therapy Visit Information Visit Information Visit Type Progress Note Visit Start Time 12:45 Visit Stop Time 13:30 Total Visit Minutes 45 Visit Number 19 PT-OP-B Current Condition Start: 03/12/19 17:39 Freq: Status: Active Protocol: Document 08/22/19 18:51 [facility] (Rec: 08/27/19 18:57 [facility] [email or web address]) Current Condition History of Current Condition Onset Date chronic Current Complaints alternating left and right sided sacral pain History of Current Condition Yaritza 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 She does well with her home stabilization program and aquatic exercise but will experience flares of her sacral pain. Currently her pain is 3/10 and is present both left and right sides of her sacrum PT-OP-C Subjective Start: 03/12/19 17:39 Freq: Status: Active Protocol: Document 02/05/20 14:37 [facility] (Rec: 02/05/20 14:41 [facility] [email or web address]) OP-PT Subjective Patient Comments Patient Comments Yaritza Neff reports she has been working in the pool and doing her exercises. Her chief complaint today is bilateral pain around the sacrum PT-OP-F Manual Assessment Start: 03/12/19 17:39 Freq: Status: Active Protocol: Document 03/07/19 16:03 [facility] (Rec: 03/12/19 18:11 [facility] [email or web address]) Manual Assessments Soft Tissue Assessment Soft Tissue Mobility Assessment tightness in the piriformis muscle left greater than right , tightness Left ITB tightness of the lumbar and thoracic paraspinals left greater than right Joint Mobility Assessment Joint Mobility Assessment hypomobility of the thoracic spine with PA glides PT-OP-J Posture/Palpation/Skin Start: 03/12/19 17:39 Freq: Status: Active Protocol: Document 03/07/19 16:03 [facility] (Rec: 03/12/19 18:11 [facility] [email or web address]) Posture Evaluation Comments Posture Comments pt stands with a lateral shift to the left due to scoliosis Palpation Assessment Location Two Palpation Location thoracic paraspinals Palpation Findings Soft Tissue Tightness,Spasm, Muscle Guarding One Palpation Location PSIS and sacral NELY. saral base Palpation Findings Soft Tissue Tightness,Muscle Guarding,Tenderness Palpation Details tenderness on either side of the sacrum with muscle guarding, tenderness to palpation at the sacral base and PSIS bilaterally PT-OP-K Range of Motion Start: 03/12/19 18:12 Freq: Status: Active Protocol: Document 03/07/19 16:03 [facility] (Rec: 03/12/19 18:13 [facility] [email or web address]) Lumbar Spine Range of Motion Lumbar Spine Active Testing Position Standing Flexion 70 Lateral Flexion Left 55 Lateral Flexion Right 50 ROM Limitations Soft Tissue Tightness Comments c/o tightness in the sacrum with lumbar flexion activities PT-OP-M Strength Start: 03/12/19 17:39 Freq: Status: Active Protocol: Document 03/07/19 16:03 [facility] (Rec: 03/12/19 18:11 [facility] [email or web address]) Trunk Strength Trunk Manual Muscle Testing Core Stabilization Decreased stabilization of the SI joint, + ASLR test and pain in the SI joint with TA activation PT-OP-Q Treatments Start: 03/12/19 17:39 Freq: Status: Active Protocol: Document 02/05/20 14:37 [facility] (Rec: 02/05/20 14:41 [facility] [email or web address]) Manual Therapy Treatment Soft Tissue Mobilization 3 Body Location Bilateral piriformis release Comments right sided piriformis tightness today 2 Body Location lumbar spine paraspinal release Body Position Prone Comments worked on releasing the left side of the lumbar paraspinals and Quadratus lumborum 1 Body Location thoracic paraspinal MFR Body Position Supine Comments scalene and upper trapezius stretching Self-Care/Home Management Treatment Education Patient Education Home Exercise Program Other Education diaphragmatic breathing PT-OP-T Assessment and Plan Start: 03/12/19 17:39 Freq: Status: Active Protocol: Document 02/05/20 14:37 [facility] (Rec: 02/05/20 14:41 [facility] [email or web address]) Physical Therapy Assessment Goals Four Impairment Decreased transverse abdominal stabilization Short Term Goal (STG) Yaritza Neff is able to perform TA stabilization with marches without any pain GOAL MET STG Duration 4 weeks Payroll Consultant Goal (LTG) Yaritza Neff's core program for home is reviewed and she is properly performing her core stabilization exercises GOOD PROGRESS LTG Duration 8 weeks Three Impairment decreased lumbar spine ROM limited bending and lifting activities [facility] Goal (LTG) Improve lumbar spine ROM to WFL for return to full function with ADL's include bending and lifting activities Excellent progress Two Impairment muscle imbalances of the piriformis creating a torque on the sacrum Payroll Consultant Goal (LTG) improve flexibility of the piriformis on the left to reduce unequal pull on the sacrum Good progress as Yaritza Neff has been able to return to her aquatic therapy program One Impairment pain to palpation at the sacral borders due to sacral torsion Short Term Goal (STG) correct the sacral torsion with manual therapy techniques reducing pain at the sacrum Excelent progress Assessment Summary Assessment stretches and diaphragmic breathing were reviewed today for Darius. She is doing really well with keeping up her exercise in the pool and walking. Despite this she still has intermittent sacral discomfort that manual therapy helps with. She would benefit from continued PT Physical Therapy Plan Frequency and Duration Frequency of Treatment 1x/Week Duration of Treatment 8 Plan of Care Start Date 01/14/20 Plan of Care End Date 03/18/20 Therapeutic Interventions Therapeutic Interventions Home Exercise Program,Joint Mobilizations,Manual Therapy, Neuromuscular Re-education, Patient/Caregiver Education, Self-Care/Home Management,Soft Tissue Mobilization, Therapeutic Exercises Discharge Physical Therapy Discharge Reasons Goals Met Next Visit Focus/Plan Next Note Type Treatment Note Next Visit Plan continue progressing stretches and postural exercises as tolerated
--- NOTE | 2020-02-05 14:43 | PT.OPPOC ---
Physical, Occupational & Speech Therapy At [facility] Current Diagnoses Other forms of scoliosis, lumbar region (02/05/20) Low back pain (02/05/20) Dorsalgia, unspecified (02/05/20) Visit Care Team Role Provider Type Lan Gomes MD Attending Provider Physician Primary Care Provider Specialty: Family Practice Address: [address] [place] [address], [facility] Email: [email or web address] Plan Of Care PT-OP-T Assessment and Plan Start: 03/12/19 17:39 Freq: Status: Active Protocol: Document 02/05/20 14:37 [facility] (Rec: 02/05/20 14:41 [facility] [email or web address]) Physical Therapy Assessment Goals Four Impairment Decreased transverse abdominal stabilization Short Term Goal (STG) Yaritza Neff is able to perform TA stabilization with marches without any pain GOAL MET STG Duration 4 weeks Longterm Goal (LTG) Yaritza Neff's core program for home is reviewed and she is properly performing her core stabilization exercises GOOD PROGRESS LTG Duration 8 weeks Three Impairment decreased lumbar spine ROM limited bending and lifting activities Longterm Goal (LTG) Improve lumbar spine ROM to WFL for return to full function with ADL's include bending and lifting activities Excellent progress Two Impairment muscle imbalances of the piriformis creating a torque on the sacrum 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 She is doing really well with keeping up her exercise in the pool and walking. Despite this she still has intermittent sacral discomfort that manual therapy helps with. She would benefit from continued PT Physical Therapy Plan Frequency and Duration Frequency of Treatment 1x/Week Duration of Treatment 8 Plan of Care Start Date 01/14/20 Plan of Care End Date 03/18/20 Therapeutic Interventions Therapeutic Interventions Home Exercise Program,Joint Mobilizations,Manual Therapy, Neuromuscular Re-education, Patient/Caregiver Education, Self-Care/Home Management,Soft Tissue Mobilization, Therapeutic Exercises Discharge Physical Therapy Discharge Reasons Goals Met Next Visit Focus/Plan Next Note Type Treatment Note Next Visit Plan continue progressing stretches and postural exercises as tolerated Plan of Care Dates Plan of Care Start Date 01/14/20 Plan of Care End Date 03/18/20 Electronically Signed by: Danya Blanco, PT 02/05/20 [id number] Please Sign and Return: I have reviewed this Plan of Care and certify that the skilled therapy services above are required to meet the patient?s needs. Physician Signature Date Printed Name and Credentials Clinical Instructor Signature Printed Name and Credentials
--- NOTE | 2020-02-25 17:15 | PT.OTN ---
Current Diagnoses Other forms of scoliosis, lumbar region (02/25/20) Low back pain (02/25/20) Dorsalgia, unspecified (02/25/20) Physical Therapy Treatment Note PT-OP-A Visit Information Start: 03/12/19 17:39 Freq: Status: Active Protocol: Document 02/25/20 13:03 [facility] (Rec: 02/25/20 13:05 [facility] [id number]) Out-Patient Physical Therapy Visit Information Visit Information Visit Type Treatment Note Visit Start Time 13:00 Visit Stop Time 13:45 Total Visit Minutes 45 Visit Number 20 PT-OP-B Current Condition Start: 03/12/19 17:39 Freq: Status: Active Protocol: Document 08/22/19 18:51 [facility] (Rec: 08/27/19 18:57 [facility] [email or web address]) Current Condition History of Current Condition Onset Date chronic Current Complaints alternating left and right sided sacral pain History of Current Condition Yaritza 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 She does well with her home stabilization program and aquatic exercise but will experience flares of her sacral pain. Currently her pain is 3/10 and is present both left and right sides of her sacrum PT-OP-C Subjective Start: 03/12/19 17:39 Freq: Status: Active Protocol: Document 02/25/20 13:05 [facility] (Rec: 02/25/20 13:07 [facility] [id number]) OP-PT Subjective Patient Comments Patient Comments pt reports the pool has been very helpful. She feels like at times things are stuck in the left descending dolon that may be related to her back. She also feels a little tight in the upper neck. Patient Reported Progress Improving PT-OP-F Manual Assessment Start: 03/12/19 17:39 Freq: Status: Active Protocol: Document 03/07/19 16:03 [facility] (Rec: 03/12/19 18:11 [facility] [email or web address]) Manual Assessments Soft Tissue Assessment Soft Tissue Mobility Assessment tightness in the piriformis muscle left greater than right , tightness Left ITB tightness of the lumbar and thoracic paraspinals left greater than right Joint Mobility Assessment Joint Mobility Assessment hypomobility of the thoracic spine with PA glides PT-OP-J Posture/Palpation/Skin Start: 03/12/19 17:39 Freq: Status: Active Protocol: Document 03/07/19 16:03 [facility] (Rec: 03/12/19 18:11 [facility] [email or web address]) Posture Evaluation Comments Posture Comments pt stands with a lateral shift to the left due to scoliosis Palpation Assessment Location Two Palpation Location thoracic paraspinals Palpation Findings Soft Tissue Tightness,Spasm, Muscle Guarding One Palpation Location PSIS and sacral NELY. saral base Palpation Findings Soft Tissue Tightness,Muscle Guarding,Tenderness Palpation Details tenderness on either side of the sacrum with muscle guarding, tenderness to palpation at the sacral base and PSIS bilaterally PT-OP-K Range of Motion Start: 03/12/19 18:12 Freq: Status: Active Protocol: Document 03/07/19 16:03 [facility] (Rec: 03/12/19 18:13 [facility] [email or web address]) Lumbar Spine Range of Motion Lumbar Spine Active Testing Position Standing Flexion 70 Lateral Flexion Left 55 Lateral Flexion Right 50 ROM Limitations Soft Tissue Tightness Comments c/o tightness in the sacrum with lumbar flexion activities PT-OP-M Strength Start: 03/12/19 17:39 Freq: Status: Active Protocol: Document 03/07/19 16:03 [facility] (Rec: 03/12/19 18:11 [facility] [email or web address]) Trunk Strength Trunk Manual Muscle Testing Core Stabilization Decreased stabilization of the SI joint, + ASLR test and pain in the SI joint with TA activation PT-OP-Q Treatments Start: 03/12/19 17:39 Freq: Status: Active Protocol: Document 02/25/20 17:10 [facility] (Rec: 02/25/20 17:14 [facility] [email or web address]) Therapeutic Exercises Supine Exercises supine neck mobilizations on foam roll Supine Exercise Name supine neck mobilizations on foam roll Sidelying Exercises sidelying thoracic rotation with foam roll Sidelying Exercise Name sidelying thoracic rotation with foam roll Side bilateral Reps/Minutes x 5 each side Manual Therapy Treatment Soft Tissue Mobilization upper trapezius release Body Location upper trapezius release Mobilization Type Myofascial Release Body Position Supine 2 Body Location lumbar spine paraspinal release Body Position Prone Comments worked on releasing the left side of the lumbar paraspinals and Quadratus lumborum 1 Body Location thoracic paraspinal MFR Body Position Supine Comments scalene and upper trapezius stretching PT-OP-T Assessment and Plan Start: 03/12/19 17:39 Freq: Status: Active Protocol: Document 02/25/20 17:10 [facility] (Rec: 02/25/20 17:14 [facility] [email or web address]) Physical Therapy Assessment Assessment Summary Assessment Yaritza Neff was tight on her left side today, I did add in for her sidelying trunk rotation with foam roll and supine neck mobilizations with foam roll Physical Therapy Plan Frequency and Duration Frequency of Treatment 1x/Week Duration of Treatment 8 Plan of Care Start Date 01/14/20 Plan of Care End Date 03/18/20 Next Visit Focus/Plan Next Note Type Treatment Note Next Visit Plan continue progressing stretches and postural exercises as tolerated
--- NOTE | 2020-03-12 17:25 | PT.OTN ---
Current Diagnoses Other forms of scoliosis, lumbar region (03/12/20) Low back pain (03/12/20) Dorsalgia, unspecified (03/12/20) Physical Therapy Treatment Note PT-OP-A Visit Information Start: 03/12/19 17:39 Freq: Status: Active Protocol: Document 03/12/20 17:15 [facility] (Rec: 03/12/20 17:18 [facility] [id number]) Out-Patient Physical Therapy Visit Information Visit Information Visit Type Progress Note Visit Start Time 16:00 Visit Stop Time 16:45 Total Visit Minutes 45 Visit Number 21 PT-OP-B Current Condition Start: 03/12/19 17:39 Freq: Status: Active Protocol: Document 08/22/19 18:51 [facility] (Rec: 08/27/19 18:57 [facility] [email or web address]) Current Condition History of Current Condition Onset Date chronic Current Complaints alternating left and right sided sacral pain History of Current Condition Yaritza 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 She does well with her home stabilization program and aquatic exercise but will experience flares of her sacral pain. Currently her pain is 3/10 and is present both left and right sides of her sacrum PT-OP-C Subjective Start: 03/12/19 17:39 Freq: Status: Active Protocol: Document 03/12/20 17:15 [facility] (Rec: 03/12/20 17:18 [facility] [id number]) OP-PT Subjective Patient Comments Patient Comments pt reports she had to move her fridge and this strained the right side of her neck and low back PT-OP-F Manual Assessment Start: 03/12/19 17:39 Freq: Status: Active Protocol: Document 03/07/19 16:03 [facility] (Rec: 03/12/19 18:11 [facility] [email or web address]) Manual Assessments Soft Tissue Assessment Soft Tissue Mobility Assessment tightness in the piriformis muscle left greater than right , tightness Left ITB tightness of the lumbar and thoracic paraspinals left greater than right Joint Mobility Assessment Joint Mobility Assessment hypomobility of the thoracic spine with PA glides PT-OP-J Posture/Palpation/Skin Start: 03/12/19 17:39 Freq: Status: Active Protocol: Document 03/07/19 16:03 [facility] (Rec: 03/12/19 18:11 [facility] [email or web address]) Posture Evaluation Comments Posture Comments pt stands with a lateral shift to the left due to scoliosis Palpation Assessment Location Two Palpation Location thoracic paraspinals Palpation Findings Soft Tissue Tightness,Spasm, Muscle Guarding One Palpation Location PSIS and sacral NELY. saral base Palpation Findings Soft Tissue Tightness,Muscle Guarding,Tenderness Palpation Details tenderness on either side of the sacrum with muscle guarding, tenderness to palpation at the sacral base and PSIS bilaterally PT-OP-K Range of Motion Start: 03/12/19 18:12 Freq: Status: Active Protocol: Document 03/07/19 16:03 [facility] (Rec: 03/12/19 18:13 [facility] [email or web address]) Lumbar Spine Range of Motion Lumbar Spine Active Testing Position Standing Flexion 70 Lateral Flexion Left 55 Lateral Flexion Right 50 ROM Limitations Soft Tissue Tightness Comments c/o tightness in the sacrum with lumbar flexion activities PT-OP-M Strength Start: 03/12/19 17:39 Freq: Status: Active Protocol: Document 03/07/19 16:03 [facility] (Rec: 03/12/19 18:11 [facility] [email or web address]) Trunk Strength Trunk Manual Muscle Testing Core Stabilization Decreased stabilization of the SI joint, + ASLR test and pain in the SI joint with TA activation PT-OP-Q Treatments Start: 03/12/19 17:39 Freq: Status: Active Protocol: Document 03/12/20 17:18 [facility] (Rec: 03/12/20 17:25 [facility] [id number]) Therapeutic Exercises Supine Exercises chin tucks Reps/Minutes 5 x 5 sec scalene stretches Supine Exercise Name scalene stretches Reps/Minutes 2 x 30 sec each Manual Therapy Treatment Soft Tissue Mobilization upper trapezius release Body Location upper trapezius release Mobilization Type Myofascial Release Body Position Supine SCM release Body Location Right SCM release Mobilization Type Myofascial Release 2 Body Location lumbar spine paraspinal release Body Position Prone Comments worked on releasing the left side of the lumbar paraspinals and Quadratus lumborum 1 Body Location thoracic paraspinal MFR Body Position Supine Comments scalene and upper trapezius stretching Manual Techniques cervical scalene stretches B Type cervical scalene stretches B PT-OP-T Assessment and Plan Start: 03/12/19 17:39 Freq: Status: Active Protocol: Document 03/12/20 17:18 [facility] (Rec: 03/12/20 17:25 [facility] [id number]) Physical Therapy Assessment Goals Four Impairment Decreased transverse abdominal stabilization Short Term Goal (STG) Yaritza Neff is able to perform TA stabilization with marches without any pain Goal met GOAL MET STG Duration 4 weeks Fpc Goal (LTG) Yaritza Neff's core program for home is reviewed and she is properly performing her core stabilization exercises GOOD PROGRESS Three Impairment decreased lumbar spine ROM limited bending and lifting activities Fpc Goal (LTG) Improve lumbar spine ROM to WFL for return to full function with ADL's include bending and lifting activities Excellent progress Two Impairment muscle imbalances of the piriformis creating a torque on the sacrum Fpc Goal (LTG) improve flexibility of the piriformis on the left to reduce unequal pull on the sacrum Good progress as Yaritza Neff has been able to return to her aquatic therapy program One Impairment pain to palpation at the sacral borders due to sacral torsion Short Term Goal (STG) correct the sacral torsion with manual therapy techniques reducing pain at the sacrum Excelent progress Assessment Summary Assessment Yaritza Neff was tight today especially in her upper trapezius muscles. We reviewed scalene stretches and chin tucks for her. Physical Therapy Plan Frequency and Duration Frequency of Treatment 1x/Week Duration of Treatment 8 Plan of Care Start Date 03/12/20 Plan of Care End Date 05/06/20 Therapeutic Interventions Therapeutic Interventions Home Exercise Program,Joint Mobilizations,Manual Therapy, Neuromuscular Re-education, Patient/Caregiver Education, Self-Care/Home Management,Soft Tissue Mobilization, Therapeutic Exercises
--- NOTE | 2020-03-12 17:26 | PT.OPPOC ---
Physical, Occupational & Speech Therapy At [facility] Current Diagnoses Other forms of scoliosis, lumbar region (03/12/20) Low back pain (03/12/20) Dorsalgia, unspecified (03/12/20) Visit Care Team Role Provider Type Lan Gomes MD Attending Provider Physician Primary Care Provider Specialty: Family Practice Address: [address] [place] [address], [facility] Email: [email or web address] Plan Of Care PT-OP-T Assessment and Plan Start: 03/12/19 17:39 Freq: Status: Active Protocol: Document 03/12/20 17:18 [facility] (Rec: 03/12/20 17:25 [facility] [id number]) Physical Therapy Assessment Goals Four Impairment Decreased transverse abdominal stabilization Short Term Goal (STG) Yaritza Neff is able to perform TA stabilization with marches without any pain Goal met GOAL MET STG Duration 4 weeks [facility] Goal (LTG) Yaritza Neff's core program for home is reviewed and she is properly performing her core stabilization exercises GOOD PROGRESS Three Impairment decreased lumbar spine ROM limited bending and lifting activities [facility] Goal (LTG) Improve lumbar spine ROM to WFL for return to full function with ADL's include bending and lifting activities Excellent progress Two Impairment muscle imbalances of the piriformis creating a torque on the sacrum Steward/Steward[employer] Goal (LTG) improve flexibility of the piriformis on the left to reduce unequal pull on the sacrum Good progress as Yaritza Neff has been able to return to her aquatic therapy program One Impairment pain to palpation at the sacral borders due to sacral torsion Short Term Goal (STG) correct the sacral torsion with manual therapy techniques reducing pain at the sacrum Excelent progress Assessment Summary Assessment Yaritza Neff was tight today especially in her upper trapezius muscles. We reviewed scalene stretches and chin tucks for her. Physical Therapy Plan Frequency and Duration Frequency of Treatment 1x/Week Duration of Treatment 8 Plan of Care Start Date 03/12/20 Plan of Care End Date 05/06/20 Therapeutic Interventions Therapeutic Interventions Home Exercise Program,Joint Mobilizations,Manual Therapy, Neuromuscular Re-education, Patient/Caregiver Education, Self-Care/Home Management,Soft Tissue Mobilization, Therapeutic Exercises Plan of Care Dates Plan of Care Start Date 03/12/20 Plan of Care End Date 05/06/20 Electronically Signed by: Danya Blanco, PT 03/12/20 [id number] Please Sign and Return: I have reviewed this Plan of Care and certify that the skilled therapy services above are required to meet the patient?s needs. Physician Signature Date Printed Name and Credentials Clinical Instructor Signature Printed Name and Credentials
--- NOTE | 2020-03-19 17:36 | PT.OTN ---
Current Diagnoses Other forms of scoliosis, lumbar region (03/19/20) Low back pain (03/19/20) Dorsalgia, unspecified (03/19/20) Physical Therapy Treatment Note PT-OP-A Visit Information Start: 03/12/19 17:39 Freq: Status: Active Protocol: Document 03/19/20 17:24 [facility] (Rec: 03/19/20 17:36 [facility] [id number]) Out-Patient Physical Therapy Visit Information Visit Information Visit Type Treatment Note Visit Start Time 16:00 Visit Stop Time 16:45 Total Visit Minutes 45 Visit Number 22 PT-OP-B Current Condition Start: 03/12/19 17:39 Freq: Status: Active Protocol: Document 08/22/19 18:51 [facility] (Rec: 08/27/19 18:57 [facility] [email or web address]) Current Condition History of Current Condition Onset Date chronic Current Complaints alternating left and right sided sacral pain History of Current Condition Yaritza 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 She does well with her home stabilization program and aquatic exercise but will experience flares of her sacral pain. Currently her pain is 3/10 and is present both left and right sides of her sacrum PT-OP-C Subjective Start: 03/12/19 17:39 Freq: Status: Active Protocol: Document 03/19/20 17:24 [facility] (Rec: 03/19/20 17:36 [facility] [id number]) OP-PT Subjective Patient Comments Patient Comments Yaritza Neff reports her neck is feling better, she is still feeling the right sided sacral pain. She also felt pain in the left groin this week and felt her pelvis may have been out of alignment. She would like to review stretches for the inner thigh PT-OP-F Manual Assessment Start: 03/12/19 17:39 Freq: Status: Active Protocol: Document 03/07/19 16:03 [facility] (Rec: 03/12/19 18:11 [facility] [email or web address]) Manual Assessments Soft Tissue Assessment Soft Tissue Mobility Assessment tightness in the piriformis muscle left greater than right , tightness Left ITB tightness of the lumbar and thoracic paraspinals left greater than right Joint Mobility Assessment Joint Mobility Assessment hypomobility of the thoracic spine with PA glides PT-OP-J Posture/Palpation/Skin Start: 03/12/19 17:39 Freq: Status: Active Protocol: Document 03/07/19 16:03 [facility] (Rec: 03/12/19 18:11 [facility] [email or web address]) Posture Evaluation Comments Posture Comments pt stands with a lateral shift to the left due to scoliosis Palpation Assessment Location Two Palpation Location thoracic paraspinals Palpation Findings Soft Tissue Tightness,Spasm, Muscle Guarding One Palpation Location PSIS and sacral NELY. saral base Palpation Findings Soft Tissue Tightness,Muscle Guarding,Tenderness Palpation Details tenderness on either side of the sacrum with muscle guarding, tenderness to palpation at the sacral base and PSIS bilaterally PT-OP-K Range of Motion Start: 03/12/19 18:12 Freq: Status: Active Protocol: Document 03/07/19 16:03 [facility] (Rec: 03/12/19 18:13 [facility] [email or web address]) Lumbar Spine Range of Motion Lumbar Spine Active Testing Position Standing Flexion 70 Lateral Flexion Left 55 Lateral Flexion Right 50 ROM Limitations Soft Tissue Tightness Comments c/o tightness in the sacrum with lumbar flexion activities PT-OP-M Strength Start: 03/12/19 17:39 Freq: Status: Active Protocol: Document 03/07/19 16:03 [facility] (Rec: 03/12/19 18:11 [facility] [email or web address]) Trunk Strength Trunk Manual Muscle Testing Core Stabilization Decreased stabilization of the SI joint, + ASLR test and pain in the SI joint with TA activation PT-OP-Q Treatments Start: 03/12/19 17:39 Freq: Status: Active Protocol: Document 03/19/20 17:24 [facility] (Rec: 03/19/20 17:36 [facility] [id number]) Therapeutic Exercises Supine Exercises iliopsoas stretch in inga test position Supine Exercise Name iliopsoas stretch in inga test position Reps/Minutes 60 sec each single knee to chest stretch Supine Exercise Name single knee to chest strech Reps/Minutes 2 x 30 sec Manual Therapy Treatment Soft Tissue Mobilization 3 Body Location Bilateral piriformis release Comments right sided piriformis tightness today 2 Body Location lumbar spine paraspinal release Body Position Prone Comments worked on releasing the left side of the lumbar paraspinals and Quadratus lumborum 1 Body Location thoracic paraspinal MFR Body Position Supine Comments scalene and upper trapezius stretching PT-OP-T Assessment and Plan Start: 03/12/19 17:39 Freq: Status: Active Protocol: Document 03/19/20 17:24 [facility] (Rec: 03/19/20 17:36 [facility] [id number]) Physical Therapy Assessment Assessment Summary Assessment Yaritza Neff was able to tolerate inga test position today for stretching. She is tight in B iliopsoas. Physical Therapy Plan Frequency and Duration Frequency of Treatment 1x/Week Duration of Treatment 8 Plan of Care Start Date 03/12/20 Plan of Care End Date 05/06/20 Therapeutic Interventions Therapeutic Interventions Home Exercise Program,Joint Mobilizations,Manual Therapy, Neuromuscular Re-education, Patient/Caregiver Education, Self-Care/Home Management,Soft Tissue Mobilization, Therapeutic Exercises Discharge Physical Therapy Discharge Reasons Goals Met Next Visit Focus/Plan Next Note Type Treatment Note Next Visit Plan continue progressing stretches and postural exercises as tolerated
--- NOTE | 2020-03-25 11:45 | PT.OTN ---
Current Diagnoses Other forms of scoliosis, lumbar region (03/25/20) Low back pain (03/25/20) Dorsalgia, unspecified (03/25/20) Physical Therapy Treatment Note PT-OP-A Visit Information Start: 03/12/19 17:39 Freq: Status: Active Protocol: Document 03/25/20 10:30 [facility] (Rec: 03/25/20 10:30 [facility] [email or web address]) Out-Patient Physical Therapy Visit Information Visit Information Visit Type Treatment Note Visit Start Time 10:30 Visit Stop Time 11:15 Total Visit Minutes 45 Visit Number 23 PT-OP-B Current Condition Start: 03/12/19 17:39 Freq: Status: Active Protocol: Document 08/22/19 18:51 [facility] (Rec: 08/27/19 18:57 [facility] [email or web address]) Current Condition History of Current Condition Onset Date chronic Current Complaints alternating left and right sided sacral pain History of Current Condition Yaritza 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 She does well with her home stabilization program and aquatic exercise but will experience flares of her sacral pain. Currently her pain is 3/10 and is present both left and right sides of her sacrum PT-OP-C Subjective Start: 03/12/19 17:39 Freq: Status: Active Protocol: Document 03/25/20 10:33 [facility] (Rec: 03/25/20 10:33 [facility] [id number]) OP-PT Subjective Patient Comments Patient Comments Pt reports she is doing better , she has only noticed the left groin very faintly only. Patient Reported Progress Improving PT-OP-F Manual Assessment Start: 03/12/19 17:39 Freq: Status: Active Protocol: Document 03/07/19 16:03 [facility] (Rec: 03/12/19 18:11 [facility] [email or web address]) Manual Assessments Soft Tissue Assessment Soft Tissue Mobility Assessment tightness in the piriformis muscle left greater than right , tightness Left ITB tightness of the lumbar and thoracic paraspinals left greater than right Joint Mobility Assessment Joint Mobility Assessment hypomobility of the thoracic spine with PA glides PT-OP-J Posture/Palpation/Skin Start: 03/12/19 17:39 Freq: Status: Active Protocol: Document 03/07/19 16:03 [facility] (Rec: 03/12/19 18:11 [facility] [email or web address]) Posture Evaluation Comments Posture Comments pt stands with a lateral shift to the left due to scoliosis Palpation Assessment Location Two Palpation Location thoracic paraspinals Palpation Findings Soft Tissue Tightness,Spasm, Muscle Guarding One Palpation Location PSIS and sacral NLEY. saral base Palpation Findings Soft Tissue Tightness,Muscle Guarding,Tenderness Palpation Details tenderness on either side of the sacrum with muscle guarding, tenderness to palpation at the sacral base and PSIS bilaterally PT-OP-K Range of Motion Start: 03/12/19 18:12 Freq: Status: Active Protocol: Document 03/07/19 16:03 [facility] (Rec: 03/12/19 18:13 [facility] [email or web address]) Lumbar Spine Range of Motion Lumbar Spine Active Testing Position Standing Flexion 70 Lateral Flexion Left 55 Lateral Flexion Right 50 ROM Limitations Soft Tissue Tightness Comments c/o tightness in the sacrum with lumbar flexion activities PT-OP-M Strength Start: 03/12/19 17:39 Freq: Status: Active Protocol: Document 03/07/19 16:03 [facility] (Rec: 03/12/19 18:11 [facility] [email or web address]) Trunk Strength Trunk Manual Muscle Testing Core Stabilization Decreased stabilization of the SI joint, + ASLR test and pain in the SI joint with TA activation PT-OP-Q Treatments Start: 03/12/19 17:39 Freq: Status: Active Protocol: Document 03/25/20 11:34 [facility] (Rec: 03/25/20 11:45 [facility] [email or web address]) Therapeutic Exercises Supine Exercises iliopsoas stretch in inga test position Supine Exercise Name iliopsoas stretch in inga test position Reps/Minutes 60 sec each single knee to chest stretch Supine Exercise Name single knee to chest stretch Reps/Minutes 2 x 30 sec chin tucks Reps/Minutes 5 x 5 sec Standing Exercises standing foam roll rolls Standing Exercise Name standing foam roll rolls on the wall Reps/Minutes x 10 reps 1 Standing Exercise Name standing wall slides Reps/Minutes x 10 reps Manual Therapy Treatment Soft Tissue Mobilization 3 Body Location Bilateral piriformis release Comments right sided piriformis tightness today 2 Body Location lumbar spine paraspinal release Body Position Prone Comments worked on releasing the left side of the lumbar paraspinals and Quadratus lumborum 1 Body Location thoracic paraspinal MFR Body Position Supine Comments scalene and upper trapezius stretching Manual Techniques 1 Type manual iliopsoas stretch Comments manual iliopsoas stretch PT-OP-T Assessment and Plan Start: 03/12/19 17:39 Freq: Status: Active Protocol: Document 03/25/20 11:34 [facility] (Rec: 03/25/20 11:45 [facility] [email or web address]) Physical Therapy Assessment Assessment Summary Assessment We worked on wall slides against the wall today and Yaritza neff notes how tight she is in her neck. This is a good one for her to work on for posture along with foam roll stretch. Physical Therapy Plan Frequency and Duration Frequency of Treatment 1x/Week Duration of Treatment 8 Plan of Care Start Date 03/12/20 Plan of Care End Date 05/06/20 Therapeutic Interventions Therapeutic Interventions Home Exercise Program,Joint Mobilizations,Manual Therapy, Neuromuscular Re-education, Patient/Caregiver Education, Self-Care/Home Management,Soft Tissue Mobilization, Therapeutic Exercises Next Visit Focus/Plan Next Note Type Treatment Note Next Visit Plan progress postural exercise as tolerated, continue working on balancing out the shortened muscles along with those over lengthening in her low back.
--- NOTE | 2020-04-01 13:54 | PT.OTN ---
Current Diagnoses Other forms of scoliosis, lumbar region (04/01/20) Low back pain (04/01/20) Dorsalgia, unspecified (04/01/20) Physical Therapy Treatment Note PT-OP-A Visit Information Start: 03/12/19 17:39 Freq: Status: Active Protocol: Document 04/01/20 12:03 [facility] (Rec: 04/01/20 12:03 [facility] [id number]) Out-Patient Physical Therapy Visit Information Visit Information Visit Type Treatment Note Visit Start Time 12:00 Visit Stop Time 12:45 Total Visit Minutes 45 Visit Number 24 PT-OP-B Current Condition Start: 03/12/19 17:39 Freq: Status: Active Protocol: Document 08/22/19 18:51 [facility] (Rec: 08/27/19 18:57 [facility] [email or web address]) Current Condition History of Current Condition Onset Date chronic Current Complaints alternating left and right sided sacral pain History of Current Condition Nasra 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 She does well with her home stabilization program and aquatic exercise but will experience flares of her sacral pain. Currently her pain is 3/10 and is present both left and right sides of her sacrum PT-OP-C Subjective Start: 03/12/19 17:39 Freq: Status: Active Protocol: Document 04/01/20 13:49 [facility] (Rec: 04/01/20 13:54 [facility] [email or web address]) OP-PT Subjective Patient Comments Patient Comments nasra Neff wants to review the exercise program for the pool today as well as her standign wall slides PT-OP-F Manual Assessment Start: 03/12/19 17:39 Freq: Status: Active Protocol: Document 03/07/19 16:03 [facility] (Rec: 03/12/19 18:11 [facility] [email or web address]) Manual Assessments Soft Tissue Assessment Soft Tissue Mobility Assessment tightness in the piriformis muscle left greater than right , tightness Left ITB tightness of the lumbar and thoracic paraspinals left greater than right Joint Mobility Assessment Joint Mobility Assessment hypomobility of the thoracic spine with PA glides PT-OP-J Posture/Palpation/Skin Start: 03/12/19 17:39 Freq: Status: Active Protocol: Document 03/07/19 16:03 [facility] (Rec: 03/12/19 18:11 [facility] [email or web address]) Posture Evaluation Comments Posture Comments pt stands with a lateral shift to the left due to scoliosis Palpation Assessment Location Two Palpation Location thoracic paraspinals Palpation Findings Soft Tissue Tightness,Spasm, Muscle Guarding One Palpation Location PSIS and sacral NELY. saral base Palpation Findings Soft Tissue Tightness,Muscle Guarding,Tenderness Palpation Details tenderness on either side of the sacrum with muscle guarding, tenderness to palpation at the sacral base and PSIS bilaterally PT-OP-K Range of Motion Start: 03/12/19 18:12 Freq: Status: Active Protocol: Document 03/07/19 16:03 [facility] (Rec: 03/12/19 18:13 [facility] [email or web address]) Lumbar Spine Range of Motion Lumbar Spine Active Testing Position Standing Flexion 70 Lateral Flexion Left 55 Lateral Flexion Right 50 ROM Limitations Soft Tissue Tightness Comments c/o tightness in the sacrum with lumbar flexion activities PT-OP-M Strength Start: 03/12/19 17:39 Freq: Status: Active Protocol: Document 03/07/19 16:03 [facility] (Rec: 03/12/19 18:11 [facility] [email or web address]) Trunk Strength Trunk Manual Muscle Testing Core Stabilization Decreased stabilization of the SI joint, + ASLR test and pain in the SI joint with TA activation PT-OP-Q Treatments Start: 03/12/19 17:39 Freq: Status: Active Protocol: Document 04/01/20 13:49 [facility] (Rec: 04/01/20 13:54 [facility] [email or web address]) Therapeutic Exercises Standing Exercises standing bicep curls and tricep extension Standing Exercise Name bicep curls and tricep extension Comments water for resistance standing ER/IR Standing Exercise Name standing ER/IR Comments resistance from the water in the pool standing wall slides Standing Exercise Name standing wall slides Reps/Minutes x 10 Manual Therapy Treatment Soft Tissue Mobilization 2 Body Location lumbar spine paraspinal release Body Position Prone Comments worked on releasing the left side of the lumbar paraspinals and Quadratus lumborum 1 Body Location thoracic paraspinal MFR Body Position Supine Comments scalene and upper trapezius stretching PT-OP-T Assessment and Plan Start: 03/12/19 17:39 Freq: Status: Active Protocol: Document 04/01/20 13:49 [facility] (Rec: 04/01/20 13:54 [facility] [email or web address]) Physical Therapy Assessment Assessment Summary Assessment we reviewed exercises today for posture and for in the pool. Nasra neff is doing well with keeping up with her pool program and foam roll stretches Physical Therapy Plan Frequency and Duration Frequency of Treatment 1x/Week Duration of Treatment 8 Plan of Care Start Date 03/12/20 Plan of Care End Date 05/06/20 Next Visit Focus/Plan Next Note Type Treatment Note Next Visit Plan progress postural exercise as tolerated, continue working on balancing out the shortened muscles along with those over lengthening in her low back.
--- NOTE | 2020-04-09 17:16 | PT.OTN ---
Current Diagnoses Other forms of scoliosis, lumbar region (04/09/20) Low back pain (04/09/20) Dorsalgia, unspecified (04/09/20) Physical Therapy Treatment Note PT-OP-A Visit Information Start: 03/12/19 17:39 Freq: Status: Active Protocol: Document 04/09/20 17:04 [facility] (Rec: 04/09/20 17:16 [facility] [id number]) Out-Patient Physical Therapy Visit Information Visit Information Visit Type Treatment Note Visit Start Time 15:15 Visit Stop Time 16:00 Total Visit Minutes 45 Visit Number 25 PT-OP-B Current Condition Start: 03/12/19 17:39 Freq: Status: Active Protocol: Document 08/22/19 18:51 [facility] (Rec: 08/27/19 18:57 [facility] [email or web address]) Current Condition History of Current Condition Onset Date chronic Current Complaints alternating left and right sided sacral pain History of Current Condition Yaritza 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 She does well with her home stabilization program and aquatic exercise but will experience flares of her sacral pain. Currently her pain is 3/10 and is present both left and right sides of her sacrum PT-OP-C Subjective Start: 03/12/19 17:39 Freq: Status: Active Protocol: Document 04/09/20 17:04 AMH (Rec: 04/09/20 17:16 [facility] [id number]) OP-PT Subjective Patient Comments Patient Comments Pt has questions regarding her exercises she is doing in the pool PT-OP-F Manual Assessment Start: 03/12/19 17:39 Freq: Status: Active Protocol: Document 03/07/19 16:03 AM[facility] (Rec: 03/12/19 18:11 AM[facility] [email or web address]) Manual Assessments Soft Tissue Assessment Soft Tissue Mobility Assessment tightness in the piriformis muscle left greater than right , tightness Left ITB tightness of the lumbar and thoracic paraspinals left greater than right Joint Mobility Assessment Joint Mobility Assessment hypomobility of the thoracic spine with PA glides PT-OP-J Posture/Palpation/Skin Start: 03/12/19 17:39 Freq: Status: Active Protocol: Document 03/07/19 16:03 AM[facility] (Rec: 03/12/19 18:11 AM[facility] [email or web address]) Posture Evaluation Comments Posture Comments pt stands with a lateral shift to the left due to scoliosis Palpation Assessment Location Two Palpation Location thoracic paraspinals Palpation Findings Soft Tissue Tightness,Spasm, Muscle Guarding One Palpation Location PSIS and sacral NELY. saral base Palpation Findings Soft Tissue Tightness,Muscle Guarding,Tenderness Palpation Details tenderness on either side of the sacrum with muscle guarding, tenderness to palpation at the sacral base and PSIS bilaterally PT-OP-K Range of Motion Start: 03/12/19 18:12 Freq: Status: Active Protocol: Document 03/07/19 16:03 AM[facility] (Rec: 03/12/19 18:13 [facility] [email or web address]) Lumbar Spine Range of Motion Lumbar Spine Active Testing Position Standing Flexion 70 Lateral Flexion Left 55 Lateral Flexion Right 50 ROM Limitations Soft Tissue Tightness Comments c/o tightness in the sacrum with lumbar flexion activities PT-OP-M Strength Start: 03/12/19 17:39 Freq: Status: Active Protocol: Document 03/07/19 16:03 AMH (Rec: 03/12/19 18:11 AMH [email or web address]) Trunk Strength Trunk Manual Muscle Testing Core Stabilization Decreased stabilization of the SI joint, + ASLR test and pain in the SI joint with TA activation PT-OP-Q Treatments Start: 03/12/19 17:39 Freq: Status: Active Protocol: Document 04/09/20 17:04 AM[facility] (Rec: 04/09/20 17:16 [facility] [id number]) Gym Equipment Shuttle Recovery Bilateral Squats Details bilateral squats Resistance 32 # Reps/Time x 15 reps Therapeutic Exercises Standing Exercises standing bicep curls and tricep extension Standing Exercise Name bicep curls and tricep extension Comments water for resistance standing ER/IR Standing Exercise Name standing ER/IR Comments resistance from the water in the pool Manual Therapy Treatment Soft Tissue Mobilization 2 Body Location lumbar spine paraspinal release Body Position Prone Comments worked on releasing the left side of the lumbar paraspinals and Quadratus lumborum 1 Body Location thoracic paraspinal MFR Body Position Supine Comments scalene and upper trapezius stretching PT-OP-T Assessment and Plan Start: 03/12/19 17:39 Freq: Status: Active Protocol: Document 04/09/20 17:04 AMH (Rec: 04/09/20 17:16 AM[facility] [id number]) Physical Therapy Assessment Assessment Summary Assessment Yaritza Neff showed me her dexa scan results and she wanted to increase her weight bearing exercises for hip hips as she has osteopenia. I added in leg press for her and htis may be something she could do at the gym at the pool. Physical Therapy Plan Frequency and Duration Frequency of Treatment 1x/Week Duration of Treatment 8 Plan of Care Start Date 03/12/20 Plan of Care End Date 05/06/20 Next Visit Focus/Plan Next Note Type Treatment Note Next Visit Plan progress postural exercise as tolerated, continue working on balancing out the shortened muscles along with those over lengthening in her low back.
--- NOTE | 2020-04-16 16:34 | PT.OTN ---
Current Diagnoses Other forms of scoliosis, lumbar region (04/16/20) Low back pain (04/16/20) Dorsalgia, unspecified (04/16/20) Physical Therapy Treatment Note PT-OP-A Visit Information Start: 03/12/19 17:39 Freq: Status: Active Protocol: Document 04/16/20 15:30 AMH (Rec: 04/16/20 15:31 AMH [id number]) Out-Patient Physical Therapy Visit Information Visit Information Visit Type Treatment Note Visit Start Time 15:15 Visit Stop Time 16:00 Total Visit Minutes 45 Visit Number 26 PT-OP-B Current Condition Start: 03/12/19 17:39 Freq: Status: Active Protocol: Document 08/22/19 18:51 AMH (Rec: 08/27/19 18:57 AMH [email or web address]) Current Condition History of Current Condition Onset Date chronic Current Complaints alternating left and right sided sacral pain History of Current Condition Yaritza 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 She does well with her home stabilization program and aquatic exercise but will experience flares of her sacral pain. Currently her pain is 3/10 and is present both left and right sides of her sacrum PT-OP-C Subjective Start: 03/12/19 17:39 Freq: Status: Active Protocol: Document 04/16/20 16:27 AMH (Rec: 04/16/20 16:34 AMH [id number]) OP-PT Subjective Patient Comments Patient Comments pt reports she is doing better overall and will work independently on her exercises and the pool. PT-OP-F Manual Assessment Start: 03/12/19 17:39 Freq: Status: Active Protocol: Document 03/07/19 16:03 AMH (Rec: 03/12/19 18:11 AMH [email or web address]) Manual Assessments Soft Tissue Assessment Soft Tissue Mobility Assessment tightness in the piriformis muscle left greater than right , tightness Left ITB tightness of the lumbar and thoracic paraspinals left greater than right Joint Mobility Assessment Joint Mobility Assessment hypomobility of the thoracic spine with PA glides PT-OP-J Posture/Palpation/Skin Start: 03/12/19 17:39 Freq: Status: Active Protocol: Document 03/07/19 16:03 AMH (Rec: 03/12/19 18:11 AMH [email or web address]) Posture Evaluation Comments Posture Comments pt stands with a lateral shift to the left due to scoliosis Palpation Assessment Location Two Palpation Location thoracic paraspinals Palpation Findings Soft Tissue Tightness,Spasm, Muscle Guarding One Palpation Location PSIS and sacral NELY. saral base Palpation Findings Soft Tissue Tightness,Muscle Guarding,Tenderness Palpation Details tenderness on either side of the sacrum with muscle guarding, tenderness to palpation at the sacral base and PSIS bilaterally PT-OP-K Range of Motion Start: 03/12/19 18:12 Freq: Status: Active Protocol: Document 03/07/19 16:03 AMH (Rec: 03/12/19 18:13 AMH [email or web address]) Lumbar Spine Range of Motion Lumbar Spine Active Testing Position Standing Flexion 70 Lateral Flexion Left 55 Lateral Flexion Right 50 ROM Limitations Soft Tissue Tightness Comments c/o tightness in the sacrum with lumbar flexion activities PT-OP-M Strength Start: 03/12/19 17:39 Freq: Status: Active Protocol: Document 03/07/19 16:03 AMH (Rec: 03/12/19 18:11 AMH [email or web address]) Trunk Strength Trunk Manual Muscle Testing Core Stabilization Decreased stabilization of the SI joint, + ASLR test and pain in the SI joint with TA activation PT-OP-Q Treatments Start: 03/12/19 17:39 Freq: Status: Active Protocol: Document 04/16/20 16:27 AM[facility] (Rec: 04/16/20 16:34 [facility] [id number]) Therapeutic Exercises Standing Exercises standing bicep curls and tricep extension Standing Exercise Name bicep curls and tricep extension Comments water for resistance standing ER/IR Standing Exercise Name standing ER/IR Comments resistance from the water in the pool standing wall slides Standing Exercise Name standing wall slides Reps/Minutes x 10 Manual Therapy Treatment Soft Tissue Mobilization 2 Body Location lumbar spine paraspinal release Body Position Prone Comments worked on releasing the left side of the lumbar paraspinals and Quadratus lumborum 1 Body Location thoracic paraspinal MFR Body Position Supine Comments scalene and upper trapezius stretching PT-OP-T Assessment and Plan Start: 03/12/19 17:39 Freq: Status: Active Protocol: Document 04/16/20 16:27 [facility] (Rec: 04/16/20 16:34 [facility] [id number]) Physical Therapy Assessment Assessment Summary Assessment Pts exercises were reviewed with her today and she will be following up with the pool regarding using their gym for some weight resistance exercises. At this time Yaritza neff will be discharged to a independent [facility] Physical Therapy Plan Discharge Physical Therapy Discharge Reasons Goals Met
== END 2020-05-25 08:43 ==
LOC: PHYS 15:15
PROVIDERS: PCP Family Medicine; Visit Provider Family Medicine
DX: M54.9 Dorsalgia, unspecified (principal); M54.5 Low back pain; M41.86 Other forms of scoliosis, lumbar region
CPT/HCPCS: 97110; 97112; 97140; 97161

== ENCOUNTER 2020-05-25 13:37 | Outpatient (RCR) | payer MEDICARE, OTHER, SELFPAY ==
--- NOTE | 2020-05-25 17:45 | PT.OIE ---
Current Diagnoses Benign paroxysmal vertigo, unspecified ear (05/25/20) Dizziness and giddiness (05/25/20) Past Medical History (Last Reviewed 09/27/17 @ 11:46 by Sonal Sanchez LPN) Abnormal Pap smear of cervix (1988) Acquired hypothyroidism (2011) Anemia (1986) Chicken pox (1953) Chronic back pain (1986) Colitis (1971) CTS (carpal tunnel syndrome) (1989) Diverticular disease (2005) Gastroesophageal reflux disease (11/26/10) HPV (human papilloma virus) infection (2007) Hyperlipidemia Lumbar spine pain Measles (1953) Osteopenia (2011) Scoliosis (1986) Past Surgical History (Last Reviewed 09/27/17 @ 11:46 by Sonal Sanchez LPN) Anesthesia History of bilateral salpingo-oophorectomy (BSO) History of left oophorectomy (1988) Status post bunionectomy (2007) Status post bunionectomy (2013) Status post tonsillectomy and adenoidectomy (1953) Visit Care Team Role Provider Type Lan Gomes MD Attending Provider Physician Primary Care Provider Referring Provider Specialty: Family Practice Address: [address] [place] [address] Email: [email or web address] Physical Therapy Initial Evaluation PT-OP-A Visit Information Start: 05/25/20 17:34 Freq: Status: Active Protocol: Document 05/25/20 13:45 DCW (Rec: 05/25/20 17:45 DCW [id number]) Out-Patient Physical Therapy Visit Information Visit Information Visit Type Initial Evaluation Visit Start Time 13:45 Visit Stop Time 14:20 Total Visit Minutes 35 Visit Number 1 Number of BUTTONHOLE FACER Visits 0 Evaluation Information Evaluation Date 05/25/20 PT-OP-B Current Condition Start: 05/25/20 17:34 Freq: Status: Active Protocol: Document 05/25/20 13:45 DCW (Rec: 05/25/20 17:45 DCW [id number]) Current Condition History of Current Condition Onset Date 05/25/20 Current Complaints Position-dependent vertigo History of Current Condition Pt is a 74 year old female complaining of a six hour history of motion-induced vertigo. Pt reports she had three episodes this morning when trying to get up from bed , became very dizzy, had to lie back down, and try again. Pt notes she was on her left side at the time this was occurring. Pt notes she had BPPV in 2013, she performed something that sounds like BDEs for two weeks, and then it slowly resolved. Pt notes this is very similar in feeling. Pt does note that after this morning, she did not have any further symptoms. She was able to get down on the ground and perform her exercises with no symptoms, and now is no longer sure she needs to be seen. Prior Treatments and Tests Recent PT for SI pain/ Scoliosis PT-OP-C Subjective Start: 05/25/20 17:34 Freq: Status: Active Protocol: Document 05/25/20 13:45 DCW (Rec: 05/25/20 17:45 DCW [id number]) OP-PT Subjective Patient Comments Patient Comments I'm fine now. I was able to do all my exercises. It just happened this morning when trying to get up. Patient Reported Progress Improving PT-OP-O Vestibular Start: 05/25/20 17:34 Freq: Status: Active Protocol: Document 05/25/20 13:45 DCW (Rec: 05/25/20 17:45 DCW [id number]) Vestibular Assessment Screening Tests Vestibular Artery Screen Negative Auditory Tests Rondon Test Within normal limits Rinne Test Negative Air Conduction Results Equal Visual Testing Smooth Pursuits Horizontal WNL Smooth Pursuits Vertical WNL Saccades Horizontal WNL Positional Testing [place]-Hallpike Negative Left,Negative Right Rolling Test Negative Left,Negative Right PT-OP-T Assessment and Plan Start: 05/25/20 17:34 Freq: Status: Active Protocol: Document 05/25/20 13:45 DCW (Rec: 05/25/20 17:45 DCW [id number]) Physical Therapy Assessment Rehab Potential Rehabilitation Potential Excellent Evaluation Complexity Number of Personal Factors/Comorbidities 0 Number of Body Systems Impaired 1-2 Clinical Presentation at Evaluation Stable Impairments Impairments Balance,Vestibular Goals One Impairment Pt experienced position- dependent vertigo trying to get out of bed Short Term Goal (STG) Pt to perform bed mobility with no vertigo for two weeks Assessment Summary Assessment Pt testing entirely negative today at her vestibular assessment. Pt feeling great, reports she has been asymptomatic since the morning . Pt's subjective complaints are strongly suggestive of BPPV, however there is no indication of active BPPV at this time. Although unlikely, it is possible that performing her exercises, pt was able to unknowingly perform an Dandy maneuver on herself, or, since BPPV response is fatigable, she still has active BPPV and is just not showing any symptoms. Pt was educated on BPPV, and expectations for potential treatment. Pt to return in ~1 week for a follow -up appointment, and intermittently afterward as indicated for treatment of BPPV. Pt also instructed to return with any change in her symptoms. If pt's symptoms do not return, she will likely be discharged. Physical Therapy Plan Frequency and Duration Frequency of Treatment 1-2x/week Duration of Treatment 6 weeks Plan of Care Start Date 05/25/20 Plan of Care End Date 07/06/20 Therapeutic Interventions Therapeutic Interventions Canalithic Repositioning, Manual Therapy,Neuromuscular Re-education,Vestibular Rehabilitation Next Visit Focus/Plan Next Note Type Treatment Note Next Visit Plan Positional testing, CRM as indicated
--- NOTE | 2020-05-25 17:46 | PT.OPPOC ---
Physical, Occupational & Speech Therapy At [facility] Current Diagnoses Benign paroxysmal vertigo, unspecified ear (05/25/20) Dizziness and giddiness (05/25/20) Visit Care Team Role Provider Type Lan Gomes MD Attending Provider Physician Primary Care Provider Referring Provider Specialty: Family Practice Address: [address] [place] [address], [facility] Email: [email or web address] Plan Of Care PT-OP-T Assessment and Plan Start: 05/25/20 17:34 Freq: Status: Active Protocol: Document 05/25/20 13:45 DCW (Rec: 05/25/20 17:45 DCW [id number]) Physical Therapy Assessment Rehab Potential Rehabilitation Potential Excellent Evaluation Complexity Number of Personal Factors/Comorbidities 0 Number of Body Systems Impaired 1-2 Clinical Presentation at Evaluation Stable Impairments Impairments Balance,Vestibular Goals One Impairment Pt experienced position- dependent vertigo trying to get out of bed Short Term Goal (STG) Pt to perform bed mobility with no vertigo for two weeks Assessment Summary Assessment Pt testing entirely negative today at her vestibular assessment. Pt feeling great, reports she has been asymptomatic since the morning . Pt's subjective complaints are strongly suggestive of BPPV, however there is no indication of active BPPV at this time. Although unlikely, it is possible that performing her exercises, pt was able to unknowingly perform an Dandy maneuver on herself, or, since BPPV response is fatigable, she still has active BPPV and is just not showing any symptoms. Pt was educated on BPPV, and expectations for potential treatment. Pt to return in ~1 week for a follow -up appointment, and intermittently afterward as indicated for treatment of BPPV. Pt also instructed to return with any change in her symptoms. If pt's symptoms do not return, she will likely be discharged. Physical Therapy Plan Frequency and Duration Frequency of Treatment 1-2x/week Duration of Treatment 6 weeks Plan of Care Start Date 05/25/20 Plan of Care End Date 07/06/20 Therapeutic Interventions Therapeutic Interventions Canalithic Repositioning, Manual Therapy,Neuromuscular Re-education,Vestibular Rehabilitation Next Visit Focus/Plan Next Note Type Treatment Note Next Visit Plan Positional testing, CRM as indicated Plan of Care Dates Plan of Care Start Date 05/25/20 Plan of Care End Date 07/06/20 Electronically Signed by: Glen Pradhan, SRINIVASAN 05/25/20 [id number] Please Sign and Return: I have reviewed this Plan of Care and certify that the skilled therapy services above are required to meet the patient?s needs. Physician Signature Date Printed Name and Credentials Clinical Instructor Signature Printed Name and Credentials
--- NOTE | 2020-09-01 09:29 | PT.OPDS ---
Current Diagnoses Benign paroxysmal vertigo, unspecified ear (05/25/20) Dizziness and giddiness (05/25/20) Visit Care Team Role Provider Type Lan Gomes MD Attending Provider Physician Primary Care Provider Referring Provider Specialty: [facility] Address: [address] [place] [address], [id number] Email: [email or web address] Visit Number Visit Number 1 Discharge Summary PT-OP-B Current Condition Start: 05/25/20 17:34 Freq: Status: Active Protocol: Document 05/25/20 13:45 DCW (Rec: 05/25/20 17:45 DCW [id number]) Current Condition History of Current Condition Onset Date 05/25/20 Current Complaints Position-dependent vertigo History of Current Condition Pt is a 74 year old female complaining of a six hour history of motion-induced vertigo. Pt reports she had three episodes this morning when trying to get up from bed , became very dizzy, had to lie back down, and try again. Pt notes she was on her left side at the time this was occuring. Pt notes she had BPPV in 2013, she performed something that sounds like BDEs for two weeks, and then it slowly resolved. Pt notes this is very similar in feeling. Pt does note that after this morning, she did not have any further symptoms. She was able to get down on the ground and perform her exercises with no symptoms, and now is no longer sure she needs to be seen. Prior Treatments and Tests Recent PT for SI pain/ Scoliosis PT-OP-C Subjective Start: 05/25/20 17:34 Freq: Status: Active Protocol: Document 05/25/20 13:45 DCW (Rec: 05/25/20 17:45 DCW [id number]) OP-PT Subjective Patient Comments Patient Comments I'm fine now. I was able to do all my exercises. It just happened this morning when trying to get up. Patient Reported Progress Improving PT-OP-O Vestibular Start: 05/25/20 17:34 Freq: Status: Active Protocol: Document 05/25/20 13:45 DCW (Rec: 05/25/20 17:45 DCW [id number]) Vestibular Assessment Screening Tests Vestibular Artery Screen Negative Auditory Tests Rondon Test Within normal limits Rinne Test Negative Air Conduction Results Equal Visual Testing Smooth Pursuits Horizontal WNL Smooth Pursuits Vertical WNL Saccades Horizontal WNL Positional Testing [place]-Hallpike Negative Left,Negative Right Rolling Test Negative Left,Negative Right PT-OP-T Assessment and Plan Start: 05/25/20 17:34 Freq: Status: Active Protocol: Document 09/01/20 09:27 [facility] (Rec: 09/01/20 09:29 [facility] [id number]) Physical Therapy Assessment Assessment Summary Assessment Pt did attend any return visits, has not been seen in more than three months. Pt will be discharged at this time. Physical Therapy Plan Discharge Physical Therapy Discharge Reasons No Longer Attending PT Next Visit Focus/Plan Next Note Type Discharge Summary
== END 2020-09-01 10:03 | disposition home or self-care (01) ==
LOC: PHYS 13:37
PROVIDERS: PCP Family Medicine; Referring Provider Family Medicine; Visit Provider Family Medicine
DX: H81.10 Benign paroxysmal vertigo, unspecified ear (principal)
CPT/HCPCS: 97161

== ENCOUNTER → 2020-10-19 08:10 | Outpatient (CLI) | payer MEDICARE, OTHER, SELFPAY ==
[2020-10-19 09:01] LABS: Add Manual Diff / Slide Review NO; Basophils Absolute Auto 0 /uL (0-100); Basophils Percent Auto 0.7 % (0-2); Eosinophils Absolute Auto 200 /uL (0-450); Eosinophils Percent Auto 3.2 % (2-4); Hemoglobin 13.2 g/dL (12.0-16.0); Lymphocytes Absolute Auto 1900 /uL (1100-4500); Lymphocytes Percent Auto 35.1 % (25-40); Mean Corpuscular HGB Conc 33.9 % (30-36); Mean Corpuscular Hemoglobin 29.9 PG (26-34); Mean Corpuscular Volume 88.1 fL (80-100); Monocytes Absolute Auto 400 /uL (0-900); Monocytes Percent Auto 7.1 % (3-14); Neutrophils Absolute Auto 2900 /uL (1500-7000); Neutrophils Percent Auto 53.9 % (50-75); Platelet Count 233 X10^3/uL (150-400); Red Blood Cell Count 4.42 X10^6/uL (4.0-5.2); Red Cell Distribution Width 13.3 % (11.6-14.8); White Blood Cell Count 5.4 X10^3/uL (4.5-11.0)
[2020-10-19 09:16] LABS: Alanine Aminotransferase 17 IU/L (<35); Albumin 4.3 g/dL (3.5-5.0); Albumin Globulin Ratio 1.4 (1.0-2.8); Alkaline Phosphatase 76 U/L (38-126); Aspartate Aminotransferase 25 IU/L (14-36); BUN Creatinine Ratio 22.4 (6-22); Bilirubin Total 0.4 mg/dL (0.2-1.3); Blood Urea Nitrogen 11 mg/dL (7-17); Calcium 9.1 mg/dL (8.4-10.2); Carbon Dioxide 27 mmol/L (22-32); Chloride 102 mmol/L (98-107); Cholesterol 282 mg/dL (140-199); Estimated Glomerular Filt Rate > 60.0 mL/min (>60); Globulin 3.1 g/dL (1.7-4.1); Glucose 103 mg/dL (80-110); HDL Cholesterol 73 mg/dL (40-60); HEMOLYSIS < 15 (0-50); LDL Cholesterol Calculated 191 mg/dL (<100); Magnesium 2.2 mg/dL (1.6-2.3); Potassium 3.9 mmol/L (3.4-5.1); Sodium 135 mmol/L (137-145); Total Protein 7.4 g/dL (6.3-8.2); Triglycerides 89 mg/dL (35-150)
[2020-10-19 10:02] LABS: Vitamin B12 548 pg/mL (239-931)
[2020-10-19 10:08] LABS: TSH w/ Reflex to FT4 < 0.02 uIU/mL (0.47-4.68)
[2020-10-19 11:08] LABS: Free T4, Direct Thyroxine 0.96 ng/dL (0.78-2.19)
== END ==
PROVIDERS: PCP Family Medicine; Referring Provider Family Medicine; Visit Provider Family Medicine
DX: D51.9 Vitamin B12 deficiency anemia, unspecified (principal); E03.9 Hypothyroidism, unspecified; E78.5 Hyperlipidemia, unspecified
CPT/HCPCS: 36415; 80053; 80061; 82607; 83735; 84439; 84443; 85025

== ENCOUNTER → 2021-03-09 08:31 | Outpatient (CLI) | payer MEDICARE, OTHER, SELFPAY ==
[2021-03-09 10:49] LABS: Hemoglobin A1C% w Est Avg Glu 5.9 % (4.0-6.0)
[2021-03-09 11:13] LABS: HDL Cholesterol 91 mg/dL (40-60); Triglycerides 98 mg/dL (35-150)
[2021-03-09 11:34] LABS: Cholesterol 364 mg/dL (140-199); LDL Cholesterol Calculated 253 mg/dL (<100)
[2021-03-09 11:46] LABS: TSH w/ Reflex to FT4 0.04 uIU/mL (0.47-4.68)
[2021-03-09 20:50] LABS: Glucose 102 mg/dL (80-110)
[2021-05-03 09:08] LABS: Fecal Immunochemical Test Negative (Negative)
== END ==
PROVIDERS: Physician Assistant; PCP Family Medicine; Referring Provider Family Medicine; Visit Provider Family Medicine
DX: E78.5 Hyperlipidemia, unspecified (principal); E03.9 Hypothyroidism, unspecified; E78.2 Mixed hyperlipidemia; D51.9 Vitamin B12 deficiency anemia, unspecified; E55.9 Vitamin D deficiency, unspecified
CPT/HCPCS: 36415; 80061; 82274; 82947; 83036; 84439; 84443; 86617

== ENCOUNTER 2021-04-14 12:00 | Outpatient (RCR) | payer MEDICARE, OTHER, SELFPAY ==
--- NOTE | 2020-09-02 13:22 | PT.OIE ---
Current Diagnoses Scoliosis, unspecified (09/02/20) Dorsalgia, unspecified (09/02/20) Past Medical History (Last Reviewed 09/27/17 @ 11:46 by Sonal Sanchez LPN) Abnormal Pap smear of cervix (1988) Acquired hypothyroidism (2011) Anemia (1986) Chicken pox (1953) Chronic back pain (1986) Colitis (1971) CTS (carpal tunnel syndrome) (1989) Diverticular disease (2005) Gastroesophageal reflux disease (11/26/10) History of left oophorectomy (1988) HPV (human papilloma virus) infection (2007) Hyperlipidemia Lumbar spine pain Measles (1953) Osteopenia (2011) Scoliosis (1986) Past Surgical History (Last Reviewed 09/27/17 @ 11:46 by Sonal Sanchez LPN) Anesthesia History of bilateral salpingo-oophorectomy (BSO) History of left oophorectomy (1988) Status post bunionectomy (2007) Status post bunionectomy (2013) Status post tonsillectomy and adenoidectomy (1953) Visit Care Team Role Provider Type Lan Gomes MD Attending Provider Physician Primary Care Provider Referring Provider Specialty: [facility] Address: [address] [place] [address] Email: [email or web address] Physical Therapy Initial Evaluation PT-OP-A Visit Information Start: 09/02/20 10:31 Freq: Status: Active Protocol: Document 09/02/20 10:30 [facility] (Rec: 09/02/20 12:47 [facility] [id number]) Out-Patient Physical Therapy Visit Information Visit Information Visit Type Initial Evaluation Visit Start Time 10:30 Visit Stop Time 11:15 Total Visit Minutes 45 Visit Number 1 PT-OP-B Current Condition Start: 09/02/20 10:31 Freq: Status: Active Protocol: Document 09/02/20 10:30 [facility] (Rec: 09/02/20 11:20 [facility] [id number]) Current Condition History of Current Condition Onset Date pt experienced a recentl flare up of symptoms Current Complaints thoracic and low back pain, left foot pain with walking History of Current Condition pt would like to strengthen for osteopenia an has questions regarding the exercises at the pool. She has questions on the leg press and hip abduction machines. She describes left sided rib cage tightness and wraps around to the front of her pelvis. She feels a pull on the lateral side of her foot. Current Functional Impairments (Reported) Functional Limitations- ADL's pain prevents Yaritza Neff from lifting anything heavy, pt can stand as long as she wants but it increaases her pain PT-OP-C Subjective Start: 09/02/20 10:31 Freq: Status: Active Protocol: Document 09/02/20 10:30 [facility] (Rec: 09/02/20 13:13 [facility] [id number]) Patient Questionnaires Oswestry Low Back Index Oswestry Score 4 Oswestry Impairment 1 to 19% Impaired (Score 1-19) OP-PT Pain Assessment Pain Assessment Grid Paper Pain Assessment Grid Completed Yes Location left knee and foot pain Intensity 3 Scale Used Numeric (0 - 10) left thoracic and low back Intensity 3 Scale Used Numeric (0 - 10) PT-OP-F Manual Assessment Start: 09/02/20 10:31 Freq: Status: Active Protocol: Document 09/02/20 10:30 [facility] (Rec: 09/02/20 13:22 [facility] [id number]) Manual Assessments Soft Tissue Assessment Soft Tissue Mobility Assessment tightness in the piriformis muscle left greater than right , tightness Left ITB tightness of the lumbar and thoracic paraspinals left greater than right Joint Mobility Assessment Joint Mobility Assessment hypomobility of the thoracic spine with PA glides PT-OP-J Posture/Palpation/Skin Start: 09/02/20 10:31 Freq: Status: Active Protocol: Document 09/02/20 10:30 [facility] (Rec: 09/02/20 13:22 [facility] [id number]) Posture Evaluation Comments Posture Comments scoliosis with convexity to the left, pt is shifted and sidebent left Palpation Assessment Location left foot 4th and 5th extensor tendon Palpation Details tightness of the extensor tendon on the left foot especially the 4th and 5th toes. Pt does have a history of a fusion for her great toe but it is in a valgus position again. piriformis Palpation Location left piriformis Palpation Details tightness and guarding quadratus lumborum Palpation Location left quadratus lumborum Palpation Details tightness and guarding left thoracic and lumbar paraspinals Palpation Location left thoracic and lumbar paraspinals Palpation Details tightness and guarding of the left thoracic and lumbar paraspinals PT-OP-K Range of Motion Start: 09/02/20 10:31 Freq: Status: Active Protocol: Document 09/02/20 10:30 [facility] (Rec: 09/02/20 13:22 [facility] [id number]) Lumbar Spine Range of Motion Lumbar Spine Active Flexion 60 Lateral Flexion Left 10 Lateral Flexion Right 5 Comments decreased sidebending to the right, decreased lumbar flexion ROM PT-OP-Q Treatments Start: 09/02/20 10:31 Freq: Status: Active Protocol: Document 09/02/20 10:30 [facility] (Rec: 09/02/20 12:49 [facility] [id number]) Gym Equipment Shuttle Recovery Bilateral Squats Details bilateral squats Resistance 50# Reps/Time x 15 reps Manual Therapy Treatment Soft Tissue Mobilization left quadratus lumborum release Mobilization Type Myofascial Release Body Position Prone Comments prone on body pillow left thoracic and lumbar paraspinals Mobilization Type Myofascial Release Intensity/Depth Moderate Body Position Prone Comments prone over body pillow, scoliosis with convexity to the left PT-OP-T Assessment and Plan Start: 09/02/20 10:31 Freq: Status: Active Protocol: Document 09/02/20 10:30 [facility] (Rec: 09/02/20 12:56 [facility] [id number]) Physical Therapy Assessment Rehab Potential Rehabilitation Potential Good Evaluation Complexity Number of Personal Factors/Comorbidities 0 Number of Body Systems Impaired 1-2 Clinical Presentation at Evaluation Stable Impairments Impairments Activity Tolerance,Functional Activities,Pain,Posture,ROM, Soft Tissue Mobility,Strength Goals osteopenia and pt lacks a weight training program Pmo Lead Goal (LTG) Yaritza Neff is independent with a HEP for weight bearing exercises and gym exercises to help with improved muscle strength and bone mass. LTG Duration 8 weeks pain increases with standing Pmo Lead Goal (LTG) pts standing tolerance has increased to 2 hours LTG Duration 8 weeks Muscle guarding and spasm of the left thoracic and lumbar paraspinals Short Term Goal (STG) Reduce muscle guarding and spasm of the thoracic and lumbar paraspinals STG Duration 6 weeks thoracic and low back pain Retirement Goal (LTG) Yaritza Neff reports a reduction in pain of the left thoracic and low back region, pain levels drop to 1/10 LTG Duration 8 weeks Assessment Summary Assessment Yaritza Neff is a active 75 year old female returning to PT with left sided thoracic and lumbar pain. Her scoliosis with convexity ot the left contributes to her pain and at times even with her stretches and pool exercises she becomes tight. She also wishes to review weight training exercises she can do at the pool gym for her ostepenia. Yaritza Neff also complains of left sided lateral foot pain. With evaluation today Yaritza Neff is guarded and tight on the left side of the lumbar and thoracic paraspinals, left piriformis and left quadratus lumborum. She is slightly side bent to the left. Her extensor tendons on the 4th and 5th left toes are tight and guarded and she can fee a stretch on the top of her foot with plantar flexion. I did start Soft tissue release today for Yaritza Neff's thoracic and lumbar spine as well as we reviewed the leg press weight machine for her for gym at the pool. Yaritza Neff is a good candidate for PT Physical Therapy Plan Frequency and Duration Frequency of Treatment 1x/Week Duration of Treatment 8 Plan of Care Start Date 09/02/20 Plan of Care End Date 11/03/20 Therapeutic Interventions Therapeutic Interventions Home Exercise Program, Lymphedema Management, Neuromuscular Re-education, Self-Care/Home Management,Soft Tissue Mobilization, Therapeutic Exercises Next Visit Focus/Plan Next Note Type Treatment Note Next Visit Plan continue working on weight training exercises for osteopenia, STM as needed for tightness for the low back and left foot, stretches for her foot and low back
--- NOTE | 2020-09-02 13:22 | PT.OPPOC ---
Physical, Occupational & Speech Therapy At [facility] Current Diagnoses Scoliosis, unspecified (09/02/20) Dorsalgia, unspecified (09/02/20) Visit Care Team Role Provider Type Lan Gomes MD Attending Provider Physician Primary Care Provider Referring Provider Specialty: Family Practice Address: [address] [place] [address], [id number] Email: [email or web address] Plan Of Care PT-OP-T Assessment and Plan Start: 09/02/20 10:31 Freq: Status: Active Protocol: Document 09/02/20 10:30 [facility] (Rec: 09/02/20 12:56 [facility] [id number]) Physical Therapy Assessment Rehab Potential Rehabilitation Potential Good Evaluation Complexity Number of Personal Factors/Comorbidities 0 Number of Body Systems Impaired 1-2 Clinical Presentation at Evaluation Stable Impairments Impairments Activity Tolerance,Functional Activities,Pain,Posture,ROM, Soft Tissue Mobility,Strength Goals osteopenia and pt lacks a weight training program Jail Goal (LTG) Yaritza Neff is independent with a HEP for weight bearing exercises and gym exercises to help with improved muscle strength and bone mass. LTG Duration 8 weeks pain increases with standing Jail Goal (LTG) pts standing tolerance has increased to 2 hours LTG Duration 8 weeks Muscle guarding and spasm of the left thoracic and lumbar paraspinals Short Term Goal (STG) Reduce muscle guarding and spasm of the thoracic and lumbar paraspinals STG Duration 6 weeks thoracic and low back pain Jail Goal (LTG) Yaritza Neff reports a reduction in pain of the left thoracic and low back region, pain levels drop to 1/10 LTG Duration 8 weeks Assessment Summary Assessment Yaritza Neff is a active 75 year old female returning to PT with left sided thoracic and lumbar pain. Her scoliosis with convexity ot the left contributes to her pain and at times even with her stretches and pool exercises she becomes tight. She also wishes to review weight training exercises she can do at the pool gym for her osteopenia. Yaritza Neff also complains of left sided lateral foot pain. With evaluation today Yaritza Neff is guarded and tight on the left side of the lumbar and thoracic paraspinals, left piriformis and left quadratus lumborum. She is slightly side bent to the left. Her extensor tendons on the 4th and 5th left toes are tight and guarded and she can fee a stretch on the top of her foot with plantar flexion. I did start Soft tissue release today for Yaritza Neff's thoracic and lumbar spine as well as we reviewed the leg press weight machine for her for gym at the pool. Yaritza Neff is a good candidate for PT Physical Therapy Plan Frequency and Duration Frequency of Treatment 1x/Week Duration of Treatment 8 Plan of Care Start Date 09/02/20 Plan of Care End Date 11/03/20 Therapeutic Interventions Therapeutic Interventions Home Exercise Program, Lymphedema Management, Neuromuscular Re-education, Self-Care/Home Management,Soft Tissue Mobilization, Therapeutic Exercises Next Visit Focus/Plan Next Note Type Treatment Note Next Visit Plan continue working on weight training exercises for osteopenia, STM as needed for tightness for the low back and left foot, stretches for her foot and low back Plan of Care Dates Plan of Care Start Date 09/02/20 Plan of Care End Date 11/03/20 Electronically Signed by: Danya Blanco, PT 09/02/20 [id number] Please Sign and Return: I have reviewed this Plan of Care and certify that the skilled therapy services above are required to meet the patient?s needs. Physician Signature Date Printed Name and Credentials Clinical Instructor Signature Printed Name and Credentials
--- NOTE | 2020-09-23 14:24 | PT.OTN ---
Current Diagnoses Scoliosis, unspecified (09/22/20) Dorsalgia, unspecified (09/22/20) Physical Therapy Treatment Note PT-OP-A Visit Information Start: 09/02/20 10:31 Freq: Status: Active Protocol: Document 09/22/20 14:29 [facility] (Rec: 09/22/20 14:39 [facility] [id number]) Out-Patient Physical Therapy Visit Information Visit Information Visit Type Treatment Note Visit Start Time 14:30 Visit Stop Time 15:15 Total Visit Minutes 45 Visit Number 2 PT-OP-B Current Condition Start: 09/02/20 10:31 Freq: Status: Active Protocol: Document 09/02/20 10:30 [facility] (Rec: 09/02/20 11:20 [facility] [id number]) Current Condition History of Current Condition Onset Date pt experienced a recentl flare up of symptoms Current Complaints thoracic and low back pain, left foot pain with walking History of Current Condition pt would like to strengthen for osteopenia an has questions regarding the exercises at the pool. She has questions on the leg press and hip abduction machines. She describes left sided rib cage tightness and wraps around to the front of her pelvis. She feels a pull on the lateral side of her foot. Current Functional Impairments (Reported) Functional Limitations- ADL's pain prevents Yaritza Neff from lifting anything heavy, pt can stand as long as she wants but it increaases her pain PT-OP-C Subjective Start: 09/02/20 10:31 Freq: Status: Active Protocol: Document 09/22/20 14:29 [facility] (Rec: 09/22/20 14:39 [facility] [id number]) OP-PT Subjective Patient Comments Patient Comments pt has not been able to go to the pool due to bug bites and swollen legs. SHe is taking doxycycline for the right leg. She tool a fall and it pulled the right side of her body. PT-OP-F Manual Assessment Start: 09/02/20 10:31 Freq: Status: Active Protocol: Document 09/02/20 10:30 [facility] (Rec: 09/02/20 13:22 [facility] [id number]) Manual Assessments Soft Tissue Assessment Soft Tissue Mobility Assessment tightness in the piriformis muscle left greater than right , tightness Left ITB tightness of the lumbar and thoracic paraspinals left greater than right Joint Mobility Assessment Joint Mobility Assessment hypomobility of the thoracic spine with PA glides PT-OP-J Posture/Palpation/Skin Start: 09/02/20 10:31 Freq: Status: Active Protocol: Document 09/02/20 10:30 [facility] (Rec: 09/02/20 13:22 [facility] [id number]) Posture Evaluation Comments Posture Comments scoliosis with convexity to the left, pt is shifted and sidebent left Palpation Assessment Location left foot 4th and 5th extensor tendon Palpation Details tightness of the extensor tendon on the left foot especially the 4th and 5th toes. Pt does have a history of a fusion for her great toe but it is in a valgus position again. piriformis Palpation Location left piriformis Palpation Details tightness and guarding quadratus lumborum Palpation Location left quadratus lumborum Palpation Details tightness and guarding left thoracic and lumbar paraspinals Palpation Location left thoracic and lumbar paraspinals Palpation Details tightness and guarding of the left thoracic and lumbar paraspinals PT-OP-K Range of Motion Start: 09/02/20 10:31 Freq: Status: Active Protocol: Document 09/02/20 10:30 [facility] (Rec: 09/02/20 13:22 [facility] [id number]) Lumbar Spine Range of Motion Lumbar Spine Active Flexion 60 Lateral Flexion Left 10 Lateral Flexion Right 5 Comments decreased sidebending to the right, decreased lumbar flexion ROM PT-OP-Q Treatments Start: 09/02/20 10:31 Freq: Status: Active Protocol: Document 09/22/20 14:30 [facility] (Rec: 09/23/20 14:24 [facility] [id number]) Manual Therapy Treatment Soft Tissue Mobilization piriformis release Body Location bilateral piriformis Body Position Prone left quadratus lumborum release Mobilization Type Myofascial Release Body Position Prone Comments prone on body pillow left thoracic and lumbar paraspinals Mobilization Type Myofascial Release Intensity/Depth Moderate Body Position Prone Comments prone over body pillow, scoliosis with convexity to the left PT-OP-T Assessment and Plan Start: 09/02/20 10:31 Freq: Status: Active Protocol: Document 09/22/20 14:30 [facility] (Rec: 09/23/20 14:24 [facility] [id number]) Physical Therapy Assessment Assessment Summary Assessment we held off on exercise today due to inflammed bug bites. Yaritza Neff also slipped and caught her self on her right forarm. She was tighter in her right side today as she may have strained her thoracic spine when she fell. She tolerated treatment well and felt better afterwards Physical Therapy Plan Frequency and Duration Frequency of Treatment 1x/Week Duration of Treatment 8 Plan of Care Start Date 09/02/20 Plan of Care End Date 11/03/20 Therapeutic Interventions Therapeutic Interventions Home Exercise Program, Lymphedema Management, Neuromuscular Re-education, Self-Care/Home Management,Soft Tissue Mobilization, Therapeutic Exercises Next Visit Focus/Plan Next Note Type Treatment Note Next Visit Plan continue working on weight training exercises for osteopenia, STM as needed for tightness for the low back and left foot, stretches for her foot and low back
--- NOTE | 2020-09-30 13:08 | PT.OTN ---
Current Diagnoses Scoliosis, unspecified (09/30/20) Dorsalgia, unspecified (09/30/20) Physical Therapy Treatment Note PT-OP-A Visit Information Start: 09/02/20 10:31 Freq: Status: Active Protocol: Document 09/30/20 13:00 [facility] (Rec: 09/30/20 13:08 [facility] [id number]) Out-Patient Physical Therapy Visit Information Visit Information Visit Type Treatment Note Visit Start Time 12:00 Visit Stop Time 12:45 Total Visit Minutes 45 Visit Number 3 PT-OP-B Current Condition Start: 09/02/20 10:31 Freq: Status: Active Protocol: Document 09/02/20 10:30 [facility] (Rec: 09/02/20 11:20 [facility] [id number]) Current Condition History of Current Condition Onset Date pt experienced a recentl flare up of symptoms Current Complaints thoracic and low back pain, left foot pain with walking History of Current Condition pt would like to strengthen for osteopenia an has questions regarding the exercises at the pool. She has questions on the leg press and hip abduction machines. She describes left sided rib cage tightness and wraps around to the front of her pelvis. She feels a pull on the lateral side of her foot. Current Functional Impairments (Reported) Functional Limitations- ADL's pain prevents Yaritza Neff from lifting anything heavy, pt can stand as long as she wants but it increaases her pain PT-OP-C Subjective Start: 09/02/20 10:31 Freq: Status: Active Protocol: Document 09/30/20 13:00 [facility] (Rec: 09/30/20 13:08 [facility] [id number]) OP-PT Subjective Patient Comments Patient Comments Yaritza Neff has not been back to the pool yet, her legs are healing and doing better. She reports feeling tight in her hamstrings and ITB today PT-OP-F Manual Assessment Start: 09/02/20 10:31 Freq: Status: Active Protocol: Document 09/02/20 10:30 [facility] (Rec: 09/02/20 13:22 [facility] [id number]) Manual Assessments Soft Tissue Assessment Soft Tissue Mobility Assessment tightness in the piriformis muscle left greater than right , tightness Left ITB tightness of the lumbar and thoracic paraspinals left greater than right Joint Mobility Assessment Joint Mobility Assessment hypomobility of the thoracic spine with PA glides PT-OP-J Posture/Palpation/Skin Start: 09/02/20 10:31 Freq: Status: Active Protocol: Document 09/02/20 10:30 [facility] (Rec: 09/02/20 13:22 [facility] [id number]) Posture Evaluation Comments Posture Comments scoliosis with convexity to the left, pt is shifted and sidebent left Palpation Assessment Location left foot 4th and 5th extensor tendon Palpation Details tightness of the extensor tendon on the left foot especially the 4th and 5th toes. Pt does have a history of a fusion for her great toe but it is in a valgus position again. piriformis Palpation Location left piriformis Palpation Details tightness and guarding quadratus lumborum Palpation Location left quadratus lumborum Palpation Details tightness and guarding left thoracic and lumbar paraspinals Palpation Location left thoracic and lumbar paraspinals Palpation Details tightness and guarding of the left thoracic and lumbar paraspinals PT-OP-K Range of Motion Start: 09/02/20 10:31 Freq: Status: Active Protocol: Document 09/02/20 10:30 [facility] (Rec: 09/02/20 13:22 [facility] [id number]) Lumbar Spine Range of Motion Lumbar Spine Active Flexion 60 Lateral Flexion Left 10 Lateral Flexion Right 5 Comments decreased sidebending to the right, decreased lumbar flexion ROM PT-OP-Q Treatments Start: 09/02/20 10:31 Freq: Status: Active Protocol: Document 09/30/20 13:00 [facility] (Rec: 09/30/20 13:08 [facility] [id number]) Therapeutic Exercises Supine Exercises hamstring stretch with strap Reps/Minutes hold 1-2 min ITB stretch with strap Reps/Minutes hold 1-2 min Prone Exercises prone quad stretch Reps/Minutes hold 1-2 min Other Exercises prone quad stretch Reps/Minutes hold 1-2 minutes Manual Therapy Treatment Soft Tissue Mobilization left thoracic and lumbar paraspinals Mobilization Type Myofascial Release Intensity/Depth Moderate Body Position Prone Comments prone over body pillow, scoliosis with convexity to the left Joint Mobilizations 2 Joint PA mobilization thoracic spine T5-10 Direction PA Grade II Body Position Prone PT-OP-T Assessment and Plan Start: 09/02/20 10:31 Freq: Status: Active Protocol: Document 09/30/20 13:00 [facility] (Rec: 09/30/20 13:08 [facility] [id number]) Physical Therapy Assessment Assessment Summary Assessment Yaritza neff was able to return to stretches and leg press today with good tolerance. Tightness in the left side of her T spine, she will return to foam roll stretches Physical Therapy Plan Frequency and Duration Frequency of Treatment 1x/Week Duration of Treatment 8 Plan of Care Start Date 09/02/20 Plan of Care End Date 11/03/20 Next Visit Focus/Plan Next Note Type Treatment Note Next Visit Plan continue working on weight training exercises for osteopenia, STM as needed for tightness for the low back and left foot, stretches for her foot and low back
--- NOTE | 2020-10-13 16:29 | PT.OTN ---
Current Diagnoses Scoliosis, unspecified (10/13/20) Dorsalgia, unspecified (10/13/20) Physical Therapy Treatment Note PT-OP-A Visit Information Start: 09/02/20 10:31 Freq: Status: Active Protocol: Document 10/13/20 13:01 [facility] (Rec: 10/13/20 13:07 [facility] [id number]) Out-Patient Physical Therapy Visit Information Visit Information Visit Type Treatment Note Visit Start Time 13:00 Visit Stop Time 13:45 Total Visit Minutes 45 Visit Number 4 PT-OP-B Current Condition Start: 09/02/20 10:31 Freq: Status: Active Protocol: Document 09/02/20 10:30 [facility] (Rec: 09/02/20 11:20 [facility] [id number]) Current Condition History of Current Condition Onset Date pt experienced a recentl flare up of symptoms Current Complaints thoracic and low back pain, left foot pain with walking History of Current Condition pt would like to strengthen for osteopenia an has questions regarding the exercises at the pool. She has questions on the leg press and hip abduction machines. She describes left sided rib cage tightness and wraps around to the front of her pelvis. She feels a pull on the lateral side of her foot. Current Functional Impairments (Reported) Functional Limitations- ADL's pain prevents Yaritza Neff from lifting anything heavy, pt can stand as long as she wants but it increaases her pain PT-OP-C Subjective Start: 09/02/20 10:31 Freq: Status: Active Protocol: Document 10/13/20 13:01 [facility] (Rec: 10/13/20 13:07 [facility] [id number]) OP-PT Subjective Patient Comments Patient Comments pt is feeling some complaints of right sided pain down the right ARM, SHE HAS ALSO FELT NECK PAIN WHEN waking up PT-OP-F Manual Assessment Start: 09/02/20 10:31 Freq: Status: Active Protocol: Document 09/02/20 10:30 [facility] (Rec: 09/02/20 13:22 [facility] [id number]) Manual Assessments Soft Tissue Assessment Soft Tissue Mobility Assessment tightness in the piriformis muscle left greater than right , tightness Left ITB tightness of the lumbar and thoracic paraspinals left greater than right Joint Mobility Assessment Joint Mobility Assessment hypomobility of the thoracic spine with PA glides PT-OP-J Posture/Palpation/Skin Start: 09/02/20 10:31 Freq: Status: Active Protocol: Document 09/02/20 10:30 [facility] (Rec: 09/02/20 13:22 [facility] [id number]) Posture Evaluation Comments Posture Comments scoliosis with convexity to the left, pt is shifted and sidebent left Palpation Assessment Location left foot 4th and 5th extensor tendon Palpation Details tightness of the extensor tendon on the left foot especially the 4th and 5th toes. Pt does have a history of a fusion for her great toe but it is in a valgus position again. piriformis Palpation Location left piriformis Palpation Details tightness and guarding quadratus lumborum Palpation Location left quadratus lumborum Palpation Details tightness and guarding left thoracic and lumbar paraspinals Palpation Location left thoracic and lumbar paraspinals Palpation Details tightness and guarding of the left thoracic and lumbar paraspinals PT-OP-K Range of Motion Start: 09/02/20 10:31 Freq: Status: Active Protocol: Document 09/02/20 10:30 [facility] (Rec: 09/02/20 13:22 [facility] [id number]) Lumbar Spine Range of Motion Lumbar Spine Active Flexion 60 Lateral Flexion Left 10 Lateral Flexion Right 5 Comments decreased sidebending to the right, decreased lumbar flexion ROM PT-OP-Q Treatments Start: 09/02/20 10:31 Freq: Status: Active Protocol: Document 10/13/20 13:01 [facility] (Rec: 10/13/20 16:29 [facility] [id number]) Manual Therapy Treatment Soft Tissue Mobilization manual cervical traction Mobilization Type Other Comments good tolerance for manual cervical traction suboccipital release Mobilization Type Myofascial Release,Sustained Pressure Body Position Supine upper trapezius release Body Location upper trapezius release Mobilization Type Myofascial Release Body Position Supine SCM release Body Location Right SCM release Mobilization Type Myofascial Release PT-OP-T Assessment and Plan Start: 09/02/20 10:31 Freq: Status: Active Protocol: Document 10/13/20 13:01 [facility] (Rec: 10/13/20 16:29 [facility] [id number]) Physical Therapy Assessment Assessment Summary Assessment Yaritza Neff was shown how to use her foam roll or yoga mat for self suboccipital release, she was really guarded in her subocciptials today and lacked upper cervical flexion. Reassess this next visit Physical Therapy Plan Frequency and Duration Frequency of Treatment 1x/Week Duration of Treatment 8 Plan of Care Start Date 09/02/20 Plan of Care End Date 11/03/20 Therapeutic Interventions Therapeutic Interventions Home Exercise Program, Lymphedema Management, Neuromuscular Re-education, Self-Care/Home Management,Soft Tissue Mobilization, Therapeutic Exercises Next Visit Focus/Plan Next Note Type Treatment Note Next Visit Plan reassess how Yaritza Neff's neck is feeling next visit
--- NOTE | 2020-10-15 17:04 | PT.OTN ---
Current Diagnoses Scoliosis, unspecified (10/15/20) Dorsalgia, unspecified (10/15/20) Physical Therapy Treatment Note PT-OP-A Visit Information Start: 09/02/20 10:31 Freq: Status: Active Protocol: Document 10/15/20 12:59 [facility] (Rec: 10/15/20 13:06 [facility] [id number]) Out-Patient Physical Therapy Visit Information Visit Information Visit Type Treatment Note Visit Start Time 13:00 Visit Stop Time 13:45 Total Visit Minutes 45 Visit Number 5 PT-OP-B Current Condition Start: 09/02/20 10:31 Freq: Status: Active Protocol: Document 09/02/20 10:30 [facility] (Rec: 09/02/20 11:20 [facility] [id number]) Current Condition History of Current Condition Onset Date pt experienced a recentl flare up of symptoms Current Complaints thoracic and low back pain, left foot pain with walking History of Current Condition pt would like to strengthen for osteopenia an has questions regarding the exercises at the pool. She has questions on the leg press and hip abduction machines. She describes left sided rib cage tightness and wraps around to the front of her pelvis. She feels a pull on the lateral side of her foot. Current Functional Impairments (Reported) Functional Limitations- ADL's pain prevents Yaritza Neff from lifting anything heavy, pt can stand as long as she wants but it increaases her pain PT-OP-C Subjective Start: 09/02/20 10:31 Freq: Status: Active Protocol: Document 10/15/20 12:59 [facility] (Rec: 10/15/20 13:06 [facility] [id number]) OP-PT Subjective Patient Comments Patient Comments pt feels like it helped some last visit, her neck is improving but she feels pain on the right upper trap and shoulder blade. PT-OP-F Manual Assessment Start: 09/02/20 10:31 Freq: Status: Active Protocol: Document 09/02/20 10:30 [facility] (Rec: 09/02/20 13:22 [facility] [id number]) Manual Assessments Soft Tissue Assessment Soft Tissue Mobility Assessment tightness in the piriformis muscle left greater than right , tightness Left ITB tightness of the lumbar and thoracic paraspinals left greater than right Joint Mobility Assessment Joint Mobility Assessment hypomobility of the thoracic spine with PA glides PT-OP-J Posture/Palpation/Skin Start: 09/02/20 10:31 Freq: Status: Active Protocol: Document 09/02/20 10:30 [facility] (Rec: 09/02/20 13:22 [facility] [id number]) Posture Evaluation Comments Posture Comments scoliosis with convexity to the left, pt is shifted and sidebent left Palpation Assessment Location left foot 4th and 5th extensor tendon Palpation Details tightness of the extensor tendon on the left foot especially the 4th and 5th toes. Pt does have a history of a fusion for her great toe but it is in a valgus position again. piriformis Palpation Location left piriformis Palpation Details tightness and guarding quadratus lumborum Palpation Location left quadratus lumborum Palpation Details tightness and guarding left thoracic and lumbar paraspinals Palpation Location left thoracic and lumbar paraspinals Palpation Details tightness and guarding of the left thoracic and lumbar paraspinals PT-OP-K Range of Motion Start: 09/02/20 10:31 Freq: Status: Active Protocol: Document 09/02/20 10:30 [facility] (Rec: 09/02/20 13:22 [facility] [id number]) Lumbar Spine Range of Motion Lumbar Spine Active Flexion 60 Lateral Flexion Left 10 Lateral Flexion Right 5 Comments decreased sidebending to the right, decreased lumbar flexion ROM PT-OP-Q Treatments Start: 09/02/20 10:31 Freq: Status: Active Protocol: Document 10/15/20 13:00 [facility] (Rec: 10/15/20 17:04 [facility] [id number]) Manual Therapy Treatment Soft Tissue Mobilization sidelying scapular mobilizations Body Position Sidelying Comments with manual pec minor stretch manual cervical traction Mobilization Type Other Comments good tolerance for manual cervical traction suboccipital release Mobilization Type Myofascial Release,Sustained Pressure Body Position Supine upper trapezius release Body Location upper trapezius release Mobilization Type Myofascial Release Body Position Supine Manual Techniques cervical scalene stretches B Type cervical scalene stretches B Reps/Duration 30 sec hold for anterior, middle, postierior PT-OP-R Modalities Start: 10/15/20 17:00 Freq: Status: Active Protocol: Document 10/15/20 13:00 [facility] (Rec: 10/15/20 17:04 [facility] [id number]) Ultrasound Therapy Treatment right upper trapexius Patient Position Sidelying Coupling Medium Ultrasound Gel Applicator Size (cm2) 5 Mode Setting Continuous Duty Cycle 100% Intensity Setting (w/cm2) 1.5 PT-OP-T Assessment and Plan Start: 09/02/20 10:31 Freq: Status: Active Protocol: Document 10/15/20 12:59 [facility] (Rec: 10/15/20 13:06 [facility] [id number]) Physical Therapy Plan Frequency and Duration Frequency of Treatment 1x/Week Duration of Treatment 8 Plan of Care Start Date 09/02/20 Plan of Care End Date 11/03/20 Therapeutic Interventions Therapeutic Interventions Home Exercise Program, Lymphedema Management, Neuromuscular Re-education, Self-Care/Home Management,Soft Tissue Mobilization, Therapeutic Exercises Next Visit Focus/Plan Next Note Type Treatment Note Next Visit Plan continue working on stabilization, stretching, and manual work for the spine
--- NOTE | 2020-10-20 17:41 | PT.OTN ---
Current Diagnoses Scoliosis, unspecified (10/20/20) Dorsalgia, unspecified (10/20/20) Physical Therapy Treatment Note PT-OP-A Visit Information Start: 09/02/20 10:31 Freq: Status: Active Protocol: Document 10/20/20 17:39 [facility] (Rec: 10/20/20 17:41 [facility] [id number]) Out-Patient Physical Therapy Visit Information Visit Information Visit Type Treatment Note Visit Start Time 13:00 Visit Stop Time 13:45 Total Visit Minutes 45 Visit Number 6 PT-OP-B Current Condition Start: 09/02/20 10:31 Freq: Status: Active Protocol: Document 09/02/20 10:30 [facility] (Rec: 09/02/20 11:20 [facility] [id number]) Current Condition History of Current Condition Onset Date pt experienced a recentl flare up of symptoms Current Complaints thoracic and low back pain, left foot pain with walking History of Current Condition pt would like to strengthen for osteopenia an has questions regarding the exercises at the pool. She has questions on the leg press and hip abduction machines. She describes left sided rib cage tightness and wraps around to the front of her pelvis. She feels a pull on the lateral side of her foot. Current Functional Impairments (Reported) Functional Limitations- ADL's pain prevents Yaritza Neff from lifting anything heavy, pt can stand as long as she wants but it increaases her pain PT-OP-C Subjective Start: 09/02/20 10:31 Freq: Status: Active Protocol: Document 10/20/20 17:39 [facility] (Rec: 10/20/20 17:41 [facility] [id number]) OP-PT Subjective Patient Comments Patient Comments pt reports she is still experiencing neck pain and shoulder pain on the right as well as jaw tightness PT-OP-F Manual Assessment Start: 09/02/20 10:31 Freq: Status: Active Protocol: Document 09/02/20 10:30 [facility] (Rec: 09/02/20 13:22 [facility] [id number]) Manual Assessments Soft Tissue Assessment Soft Tissue Mobility Assessment tightness in the piriformis muscle left greater than right , tightness Left ITB tightness of the lumbar and thoracic paraspinals left greater than right Joint Mobility Assessment Joint Mobility Assessment hypomobility of the thoracic spine with PA glides PT-OP-J Posture/Palpation/Skin Start: 09/02/20 10:31 Freq: Status: Active Protocol: Document 09/02/20 10:30 [facility] (Rec: 09/02/20 13:22 [facility] [id number]) Posture Evaluation Comments Posture Comments scoliosis with convexity to the left, pt is shifted and sidebent left Palpation Assessment Location left foot 4th and 5th extensor tendon Palpation Details tightness of the extensor tendon on the left foot especially the 4th and 5th toes. Pt does have a history of a fusion for her great toe but it is in a valgus position again. piriformis Palpation Location left piriformis Palpation Details tightness and guarding quadratus lumborum Palpation Location left quadratus lumborum Palpation Details tightness and guarding left thoracic and lumbar paraspinals Palpation Location left thoracic and lumbar paraspinals Palpation Details tightness and guarding of the left thoracic and lumbar paraspinals PT-OP-K Range of Motion Start: 09/02/20 10:31 Freq: Status: Active Protocol: Document 09/02/20 10:30 [facility] (Rec: 09/02/20 13:22 [facility] [id number]) Lumbar Spine Range of Motion Lumbar Spine Active Flexion 60 Lateral Flexion Left 10 Lateral Flexion Right 5 Comments decreased sidebending to the right, decreased lumbar flexion ROM PT-OP-Q Treatments Start: 09/02/20 10:31 Freq: Status: Active Protocol: Document 10/20/20 17:39 [facility] (Rec: 10/20/20 17:41 [facility] [id number]) Manual Therapy Treatment Soft Tissue Mobilization sidelying scapular mobilizations Body Position Sidelying Comments with manual pec minor stretch manual cervical traction Mobilization Type Other Comments good tolerance for manual cervical traction suboccipital release Mobilization Type Myofascial Release,Sustained Pressure Body Position Supine upper trapezius release Body Location upper trapezius release Mobilization Type Myofascial Release Body Position Supine Self-Care/Home Management Treatment Education Patient Education Home Exercise Program Other Education review of exercises to do at home PT-OP-R Modalities Start: 10/15/20 17:00 Freq: Status: Active Protocol: Document 10/15/20 13:00 [facility] (Rec: 10/15/20 17:04 [facility] [id number]) Ultrasound Therapy Treatment right upper trapexius Patient Position Sidelying Coupling Medium Ultrasound Gel Applicator Size (cm2) 5 Mode Setting Continuous Duty Cycle 100% Intensity Setting (w/cm2) 1.5 PT-OP-T Assessment and Plan Start: 09/02/20 10:31 Freq: Status: Active Protocol: Document 10/20/20 17:39 [facility] (Rec: 10/20/20 17:41 [facility] [id number]) Physical Therapy Assessment Assessment Summary Assessment I talked with Yaritza Neff today about trying to place her tounge on the roof of her mouth. We reviewed her HEP for rows, shoulder Extension, ER Physical Therapy Plan Frequency and Duration Frequency of Treatment 1x/Week Duration of Treatment 8 Plan of Care Start Date 09/02/20 Plan of Care End Date 11/03/20
--- NOTE | 2020-10-28 13:59 | PT.OTN ---
Current Diagnoses Scoliosis, unspecified (10/28/20) Dorsalgia, unspecified (10/28/20) Physical Therapy Treatment Note PT-OP-A Visit Information Start: 09/02/20 10:31 Freq: Status: Active Protocol: Document 10/28/20 12:45 [facility] (Rec: 10/28/20 13:56 [facility] [id number]) Out-Patient Physical Therapy Visit Information Visit Information Visit Type Progress Note Visit Start Time 12:45 Visit Stop Time 13:30 Total Visit Minutes 45 Visit Number 7 PT-OP-B Current Condition Start: 09/02/20 10:31 Freq: Status: Active Protocol: Document 09/02/20 10:30 [facility] (Rec: 09/02/20 11:20 [facility] [id number]) Current Condition History of Current Condition Onset Date pt experienced a recentl flare up of symptoms Current Complaints thoracic and low back pain, left foot pain with walking History of Current Condition pt would like to strengthen for osteopenia an has questions regarding the exercises at the pool. She has questions on the leg press and hip abduction machines. She describes left sided rib cage tightness and wraps around to the front of her pelvis. She feels a pull on the lateral side of her foot. Current Functional Impairments (Reported) Functional Limitations- ADL's pain prevents Yaritza Neff from lifting anything heavy, pt can stand as long as she wants but it increaases her pain PT-OP-C Subjective Start: 09/02/20 10:31 Freq: Status: Active Protocol: Document 10/28/20 12:45 [facility] (Rec: 10/28/20 12:59 [facility] [id number]) OP-PT Subjective Patient Comments Patient Comments carried her purse over her right shoulder tis past week and she felt tenderness in her right upper trapezius, heat can help this. Every now and then she feels a hitch in her right shoulder Patient Reported Progress Improving PT-OP-F Manual Assessment Start: 09/02/20 10:31 Freq: Status: Active Protocol: Document 09/02/20 10:30 [facility] (Rec: 09/02/20 13:22 [facility] [id number]) Manual Assessments Soft Tissue Assessment Soft Tissue Mobility Assessment tightness in the piriformis muscle left greater than right , tightness Left ITB tightness of the lumbar and thoracic paraspinals left greater than right Joint Mobility Assessment Joint Mobility Assessment hypomobility of the thoracic spine with PA glides PT-OP-J Posture/Palpation/Skin Start: 09/02/20 10:31 Freq: Status: Active Protocol: Document 09/02/20 10:30 [facility] (Rec: 09/02/20 13:22 [facility] [id number]) Posture Evaluation Comments Posture Comments scoliosis with convexity to the left, pt is shifted and sidebent left Palpation Assessment Location left foot 4th and 5th extensor tendon Palpation Details tightness of the extensor tendon on the left foot especially the 4th and 5th toes. Pt does have a history of a fusion for her great toe but it is in a valgus position again. piriformis Palpation Location left piriformis Palpation Details tightness and guarding quadratus lumborum Palpation Location left quadratus lumborum Palpation Details tightness and guarding left thoracic and lumbar paraspinals Palpation Location left thoracic and lumbar paraspinals Palpation Details tightness and guarding of the left thoracic and lumbar paraspinals PT-OP-K Range of Motion Start: 09/02/20 10:31 Freq: Status: Active Protocol: Document 09/02/20 10:30 [facility] (Rec: 09/02/20 13:22 [facility] [id number]) Lumbar Spine Range of Motion Lumbar Spine Active Flexion 60 Lateral Flexion Left 10 Lateral Flexion Right 5 Comments decreased sidebending to the right, decreased lumbar flexion ROM PT-OP-Q Treatments Start: 09/02/20 10:31 Freq: Status: Active Protocol: Document 10/28/20 12:45 [facility] (Rec: 10/28/20 13:56 [facility] [email or web address]) Manual Therapy Treatment Soft Tissue Mobilization piriformis release Body Location bilateral piriformis Body Position Prone left quadratus lumborum release Mobilization Type Myofascial Release Body Position Prone Comments prone on body pillow upper trapezius release Body Location upper trapezius release Mobilization Type Myofascial Release Body Position Supine Joint Mobilizations 3 Joint thoracic spine mobilzations in prone Comments grade II for improved thoracic extension Self-Care/Home Management Treatment Education Patient Education Home Exercise Program Other Education review of HEP and swimming strokes PT-OP-R Modalities Start: 10/15/20 17:00 Freq: Status: Active Protocol: Document 10/15/20 13:00 [facility] (Rec: 10/15/20 17:04 [facility] [id number]) Ultrasound Therapy Treatment right upper trapexius Patient Position Sidelying Coupling Medium Ultrasound Gel Applicator Size (cm2) 5 Mode Setting Continuous Duty Cycle 100% Intensity Setting (w/cm2) 1.5 PT-OP-T Assessment and Plan Start: 09/02/20 10:31 Freq: Status: Active Protocol: Document 10/28/20 12:45 [facility] (Rec: 10/28/20 13:56 [facility] [id number]) Physical Therapy Assessment Goals osteopenia and pt lacks a weight training program Prison Goal (LTG) Yaritza Neff is independent with a HEP for weight bearing exercises and gym exercises to help with improved muscle strength and bone mass. PT has been working with her weights and resistant bands at home. She has not yet started at the pool gym with the weights yet. LTG Duration 8 weeks pain increases with standing Prison Goal (LTG) pts standing tolerance has increased to 2 hours Good progress LTG Duration 8 weeks Muscle guarding and spasm of the left thoracic and lumbar paraspinals Short Term Goal (STG) Reduce muscle guarding and spasm of the thoracic and lumbar paraspinals Some progress STG Duration 6 weeks thoracic and low back pain Prison Goal (LTG) Yaritza Neff reports a reduction in pain of the left thoracic and low back region, pain levels drop to 1/10 Some progress LTG Duration 8 weeks Progress Towards Goals Progress Towards Goals Progressing Toward Goals Assessment Summary Assessment Yaritza Neff is doing better overall. She did have a set back with increase in neck and right shoulder pain after cathing herself from falling with her right hand. She is still experiencing some pain in the upper traps and right C5 dermatome region. This has also affected her rotator cuff. She is working on exercises for her shoulder, cervical and thoracic spine at home. She would benefit from continued PT. Physical Therapy Plan Frequency and Duration Frequency of Treatment 1x/Week Duration of Treatment 8 Plan of Care Start Date 10/28/20 Plan of Care End Date 12/23/20 Therapeutic Interventions Therapeutic Interventions Home Exercise Program, Lymphedema Management, Neuromuscular Re-education, Self-Care/Home Management,Soft Tissue Mobilization, Therapeutic Exercises Next Visit Focus/Plan Next Note Type Treatment Note Next Visit Plan continue working on stabilization, stretching, and manual work for the spine
--- NOTE | 2020-10-28 13:59 | PT.OTN ---
Current Diagnoses Scoliosis, unspecified (10/28/20) Dorsalgia, unspecified (10/28/20) Physical Therapy Treatment Note PT-OP-A Visit Information Start: 09/02/20 10:31 Freq: Status: Active Protocol: Document 10/28/20 12:45 [facility] (Rec: 10/28/20 13:56 [facility] [id number]) Out-Patient Physical Therapy Visit Information Visit Information Visit Type Progress Note Visit Start Time 12:45 Visit Stop Time 13:30 Total Visit Minutes 45 Visit Number 7 PT-OP-B Current Condition Start: 09/02/20 10:31 Freq: Status: Active Protocol: Document 09/02/20 10:30 [facility] (Rec: 09/02/20 11:20 [facility] [id number]) Current Condition History of Current Condition Onset Date pt experienced a recentl flare up of symptoms Current Complaints thoracic and low back pain, left foot pain with walking History of Current Condition pt would like to strengthen for osteopenia an has questions regarding the exercises at the pool. She has questions on the leg press and hip abduction machines. She describes left sided rib cage tightness and wraps around to the front of her pelvis. She feels a pull on the lateral side of her foot. Current Functional Impairments (Reported) Functional Limitations- ADL's pain prevents Yaritza Neff from lifting anything heavy, pt can stand as long as she wants but it increaases her pain PT-OP-C Subjective Start: 09/02/20 10:31 Freq: Status: Active Protocol: Document 10/28/20 12:45 [facility] (Rec: 10/28/20 12:59 [facility] [id number]) OP-PT Subjective Patient Comments Patient Comments carried her purse over her right shoulder tis past week and she felt tenderness in her right upper trapezius, heat can help this. Every now and then she feels a hitch in her right shoulder Patient Reported Progress Improving PT-OP-F Manual Assessment Start: 09/02/20 10:31 Freq: Status: Active Protocol: Document 09/02/20 10:30 [facility] (Rec: 09/02/20 13:22 [facility] [id number]) Manual Assessments Soft Tissue Assessment Soft Tissue Mobility Assessment tightness in the piriformis muscle left greater than right , tightness Left ITB tightness of the lumbar and thoracic paraspinals left greater than right Joint Mobility Assessment Joint Mobility Assessment hypomobility of the thoracic spine with PA glides PT-OP-J Posture/Palpation/Skin Start: 09/02/20 10:31 Freq: Status: Active Protocol: Document 09/02/20 10:30 [facility] (Rec: 09/02/20 13:22 [facility] [id number]) Posture Evaluation Comments Posture Comments scoliosis with convexity to the left, pt is shifted and sidebent left Palpation Assessment Location left foot 4th and 5th extensor tendon Palpation Details tightness of the extensor tendon on the left foot especially the 4th and 5th toes. Pt does have a history of a fusion for her great toe but it is in a valgus position again. piriformis Palpation Location left piriformis Palpation Details tightness and guarding quadratus lumborum Palpation Location left quadratus lumborum Palpation Details tightness and guarding left thoracic and lumbar paraspinals Palpation Location left thoracic and lumbar paraspinals Palpation Details tightness and guarding of the left thoracic and lumbar paraspinals PT-OP-K Range of Motion Start: 09/02/20 10:31 Freq: Status: Active Protocol: Document 09/02/20 10:30 [facility] (Rec: 09/02/20 13:22 [facility] [id number]) Lumbar Spine Range of Motion Lumbar Spine Active Flexion 60 Lateral Flexion Left 10 Lateral Flexion Right 5 Comments decreased sidebending to the right, decreased lumbar flexion ROM PT-OP-Q Treatments Start: 09/02/20 10:31 Freq: Status: Active Protocol: Document 10/28/20 12:45 [facility] (Rec: 10/28/20 13:56 [facility] [email or web address]) Manual Therapy Treatment Soft Tissue Mobilization piriformis release Body Location bilateral piriformis Body Position Prone left quadratus lumborum release Mobilization Type Myofascial Release Body Position Prone Comments prone on body pillow upper trapezius release Body Location upper trapezius release Mobilization Type Myofascial Release Body Position Supine Joint Mobilizations 3 Joint thoracic spine mobilzations in prone Comments grade II for improved thoracic extension Self-Care/Home Management Treatment Education Patient Education Home Exercise Program Other Education review of HEP and swimming strokes PT-OP-R Modalities Start: 10/15/20 17:00 Freq: Status: Active Protocol: Document 10/15/20 13:00 [facility] (Rec: 10/15/20 17:04 [facility] [email or web address]) Ultrasound Therapy Treatment right upper trapexius Patient Position Sidelying Coupling Medium Ultrasound Gel Applicator Size (cm2) 5 Mode Setting Continuous Duty Cycle 100% Intensity Setting (w/cm2) 1.5 PT-OP-T Assessment and Plan Start: 09/02/20 10:31 Freq: Status: Active Protocol: Document 10/28/20 12:45 [facility] (Rec: 10/28/20 13:56 [facility] [email or web address]) Physical Therapy Assessment Goals osteopenia and pt lacks a weight training program Senior Living Goal (LTG) Yaritza Neff is independent with a HEP for weight bearing exercises and gym exercises to help with improved muscle strength and bone mass. PT has been working with her weights and resistant bands at home. She has not yet started at the pool gym with the weights yet. LTG Duration 8 weeks pain increases with standing Senior Living Goal (LTG) pts standing tolerance has increased to 2 hours Good progress LTG Duration 8 weeks Muscle guarding and spasm of the left thoracic and lumbar paraspinals Short Term Goal (STG) Reduce muscle guarding and spasm of the thoracic and lumbar paraspinals Some progress STG Duration 6 weeks thoracic and low back pain Senior Living Goal (LTG) Yaritza Neff reports a reduction in pain of the left thoracic and low back region, pain levels drop to 1/10 Some progress LTG Duration 8 weeks Progress Towards Goals Progress Towards Goals Progressing Toward Goals Assessment Summary Assessment Yaritza Neff is doing better overall. She did have a set back with increase in neck and right shoulder pain after catching herself from falling with her right hand. She is still experiencing some pain in the upper traps and right C5 dermatome region. This has also affected her rotator cuff. She is working on exercises for her shoulder, cervical and thoracic spine at home. She would benefit from continued PT. Physical Therapy Plan Frequency and Duration Frequency of Treatment 1x/Week Duration of Treatment 8 Plan of Care Start Date 10/28/20 Plan of Care End Date 12/23/20 Therapeutic Interventions Therapeutic Interventions Home Exercise Program, Lymphedema Management, Neuromuscular Re-education, Self-Care/Home Management,Soft Tissue Mobilization, Therapeutic Exercises Next Visit Focus/Plan Next Note Type Treatment Note Next Visit Plan continue working on stabilization, stretching, and manual work for the spine
--- NOTE | 2020-10-28 13:59 | PT.OPPOC ---
Physical, Occupational & Speech Therapy At [facility] Current Diagnoses Scoliosis, unspecified (10/28/20) Dorsalgia, unspecified (10/28/20) Visit Care Team Role Provider Type Lan Gomes MD Attending Provider Physician Primary Care Provider Referring Provider Specialty: Family Practice Address: [address] [place] [address], [id number] Email: [email or web address] Plan Of Care PT-OP-T Assessment and Plan Start: 09/02/20 10:31 Freq: Status: Active Protocol: Document 10/28/20 12:45 [facility] (Rec: 10/28/20 13:56 [facility] [email or web address]) Physical Therapy Assessment Goals osteopenia and pt lacks a weight training program Group Home Goal (LTG) Yaritza Neff is independent with a HEP for weight bearing exercises and gym exercises to help with improved muscle strength and bone mass. PT has been working with her weights and resistant bands at home. She has not yet started at the pool gym with the weights yet. LTG Duration 8 weeks pain increases with standing Forestry Consultant Goal (LTG) pts standing tolerance has increased to 2 hours Good progress LTG Duration 8 weeks Muscle guarding and spasm of the left thoracic and lumbar paraspinals Short Term Goal (STG) Reduce muscle guarding and spasm of the thoracic and lumbar paraspinals Some progress STG Duration 6 weeks thoracic and low back pain Forestry Consultant Goal (LTG) Yaritza Neff reports a reduction in pain of the left thoracic and low back region, pain levels drop to 1/10 Some progress LTG Duration 8 weeks Progress Towards Goals Progress Towards Goals Progressing Toward Goals Assessment Summary Assessment Yaritza Neff is doing better overall. She did have a set back with increase in neck and right shoulder pain after catching herself from falling with her right hand. She is still experiencing some pain in the upper traps and right C5 dermatome region. This has also affected her rotator cuff. She is working on exercises for her shoulder, cervical and thoracic spine at home. She would benefit from continued PT. Physical Therapy Plan Frequency and Duration Frequency of Treatment 1x/Week Duration of Treatment 8 Plan of Care Start Date 10/28/20 Plan of Care End Date 12/23/20 Therapeutic Interventions Therapeutic Interventions Home Exercise Program, Lymphedema Management, Neuromuscular Re-education, Self-Care/Home Management,Soft Tissue Mobilization, Therapeutic Exercises Next Visit Focus/Plan Next Note Type Treatment Note Next Visit Plan continue working on stabilization, stretching, and manual work for the spine Plan of Care Dates Plan of Care Start Date 10/28/20 Plan of Care End Date 12/23/20 Electronically Signed by: Danya Blanco, PT 10/28/20 1304 Please Sign and Return: I have reviewed this Plan of Care and certify that the skilled therapy services above are required to meet the patient?s needs. Physician Signature Date Printed Name and Credentials Clinical Instructor Signature Printed Name and Credentials
--- NOTE | 2020-10-28 14:07 | PT.OPPN ---
Current Diagnoses Scoliosis, unspecified (10/28/20) Dorsalgia, unspecified (10/28/20) Physical Therapy Progress Note PT-OP-A Visit Information Start: 09/02/20 10:31 Freq: Status: Active Protocol: Document 10/28/20 12:45 [facility] (Rec: 10/28/20 13:56 [facility] [email or web address]) Out-Patient Physical Therapy Visit Information Visit Information Visit Type Progress Note Visit Start Time 12:45 Visit Stop Time 13:30 Total Visit Minutes 45 Visit Number 7 PT-OP-B Current Condition Start: 09/02/20 10:31 Freq: Status: Active Protocol: Document 09/02/20 10:30 [facility] (Rec: 09/02/20 11:20 [facility] [id number]) Current Condition History of Current Condition Onset Date pt experienced a recentl flare up of symptoms Current Complaints thoracic and low back pain, left foot pain with walking History of Current Condition pt would like to strengthen for osteopenia an has questions regarding the exercises at the pool. She has questions on the leg press and hip abduction machines. She describes left sided rib cage tightness and wraps around to the front of her pelvis. She feels a pull on the lateral side of her foot. Current Functional Impairments (Reported) Functional Limitations- ADL's pain prevents Yaritza Neff from lifting anything heavy, pt can stand as long as she wants but it increaases her pain PT-OP-C Subjective Start: 09/02/20 10:31 Freq: Status: Active Protocol: Document 10/28/20 12:45 [facility] (Rec: 10/28/20 12:59 [facility] [id number]) OP-PT Subjective Patient Comments Patient Comments carried her purse over her right shoulder tis past week and she felt tenderness in her right upper trapezius, heat can help this. Every now and then she feels a hitch in her right shoulder Patient Reported Progress Improving PT-OP-F Manual Assessment Start: 09/02/20 10:31 Freq: Status: Active Protocol: Document 09/02/20 10:30 [facility] (Rec: 09/02/20 13:22 [facility] [id number]) Manual Assessments Soft Tissue Assessment Soft Tissue Mobility Assessment tightness in the piriformis muscle left greater than right , tightness Left ITB tightness of the lumbar and thoracic paraspinals left greater than right Joint Mobility Assessment Joint Mobility Assessment hypomobility of the thoracic spine with PA glides PT-OP-J Posture/Palpation/Skin Start: 09/02/20 10:31 Freq: Status: Active Protocol: Document 09/02/20 10:30 [facility] (Rec: 09/02/20 13:22 [facility] [id number]) Posture Evaluation Comments Posture Comments scoliosis with convexity to the left, pt is shifted and sidebent left Palpation Assessment Location left foot 4th and 5th extensor tendon Palpation Details tightness of the extensor tendon on the left foot especially the 4th and 5th toes. Pt does have a history of a fusion for her great toe but it is in a valgus position again. piriformis Palpation Location left piriformis Palpation Details tightness and guarding quadratus lumborum Palpation Location left quadratus lumborum Palpation Details tightness and guarding left thoracic and lumbar paraspinals Palpation Location left thoracic and lumbar paraspinals Palpation Details tightness and guarding of the left thoracic and lumbar paraspinals PT-OP-K Range of Motion Start: 09/02/20 10:31 Freq: Status: Active Protocol: Document 09/02/20 10:30 [facility] (Rec: 09/02/20 13:22 [facility] [id number]) Lumbar Spine Range of Motion Lumbar Spine Active Flexion 60 Lateral Flexion Left 10 Lateral Flexion Right 5 Comments decreased sidebending to the right, decreased lumbar flexion ROM PT-OP-T Assessment and Plan Start: 09/02/20 10:31 Freq: Status: Active Protocol: Document 10/28/20 12:45 [facility] (Rec: 10/28/20 13:56 [facility] [id number]) Physical Therapy Assessment Goals osteopenia and pt lacks a weight training program Mcfp Goal (LTG) Yaritza Neff is independent with a HEP for weight bearing exercises and gym exercises to help with improved muscle strength and bone mass. PT has been working with her weights and resistant bands at home. She has not yet started at the pool gym with the weights yet. LTG Duration 8 weeks pain increases with standing Mcfp Goal (LTG) pts standing tolerance has increased to 2 hours Good progress LTG Duration 8 weeks Muscle guarding and spasm of the left thoracic and lumbar paraspinals Short Term Goal (STG) Reduce muscle guarding and spasm of the thoracic and lumbar paraspinals Some progress STG Duration 6 weeks thoracic and low back pain Laboratory Aide Goal (LTG) Yaritza Neff reports a reduction in pain of the left thoracic and low back region, pain levels drop to 1/10 Some progress LTG Duration 8 weeks Progress Towards Goals Progress Towards Goals Progressing Toward Goals Assessment Summary Assessment Yaritza Neff is doing better overall. She did have a set back with increase in neck and right shoulder pain after catching herself from falling with her right hand. She is still experiencing some pain in the upper traps and right C5 dermatome region. This has also affected her rotator cuff. She is working on exercises for her shoulder, cervical and thoracic spine at home. She would benefit from continued PT. Physical Therapy Plan Frequency and Duration Frequency of Treatment 1x/Week Duration of Treatment 8 Plan of Care Start Date 10/28/20 Plan of Care End Date 12/23/20 Therapeutic Interventions Therapeutic Interventions Home Exercise Program, Lymphedema Management, Neuromuscular Re-education, Self-Care/Home Management,Soft Tissue Mobilization, Therapeutic Exercises Next Visit Focus/Plan Next Note Type Treatment Note Next Visit Plan continue working on stabilization, stretching, and manual work for the spine
--- NOTE | 2020-11-04 13:55 | PT.OTN ---
Current Diagnoses Scoliosis, unspecified (11/11/20) Dorsalgia, unspecified (11/11/20) Physical Therapy Treatment Note PT-OP-A Visit Information Start: 09/02/20 10:31 Freq: Status: Active Protocol: Document 11/04/20 12:52 [facility] (Rec: 11/04/20 13:13 [facility] [id number]) Out-Patient Physical Therapy Visit Information Visit Information Visit Type Treatment Note Visit Start Time 12:50 Visit Stop Time 13:35 Total Visit Minutes 45 Visit Number 8 PT-OP-B Current Condition Start: 09/02/20 10:31 Freq: Status: Active Protocol: Document 09/02/20 10:30 [facility] (Rec: 09/02/20 11:20 [facility] [id number]) Current Condition History of Current Condition Onset Date pt experienced a recentl flare up of symptoms Current Complaints thoracic and low back pain, left foot pain with walking History of Current Condition pt would like to strengthen for osteopenia an has questions regarding the exercises at the pool. She has questions on the leg press and hip abduction machines. She describes left sided rib cage tightness and wraps around to the front of her pelvis. She feels a pull on the lateral side of her foot. Current Functional Impairments (Reported) Functional Limitations- ADL's pain prevents Nasra Neff from lifting anything heavy, pt can stand as long as she wants but it increaases her pain PT-OP-C Subjective Start: 09/02/20 10:31 Freq: Status: Active Protocol: Document 10/28/20 12:45 [facility] (Rec: 10/28/20 12:59 [facility] [id number]) OP-PT Subjective Patient Comments Patient Comments carried her purse over her right shoulder tis past week and she felt tenderness in her right upper trapezius, heat can help this. Every now and then she feels a hitch in her right shoulder Patient Reported Progress Improving PT-OP-F Manual Assessment Start: 09/02/20 10:31 Freq: Status: Active Protocol: Document 09/02/20 10:30 [facility] (Rec: 09/02/20 13:22 [facility] [id number]) Manual Assessments Soft Tissue Assessment Soft Tissue Mobility Assessment tightness in the piriformis muscle left greater than right , tightness Left ITB tightness of the lumbar and thoracic paraspinals left greater than right Joint Mobility Assessment Joint Mobility Assessment hypomobility of the thoracic spine with PA glides PT-OP-J Posture/Palpation/Skin Start: 09/02/20 10:31 Freq: Status: Active Protocol: Document 09/02/20 10:30 [facility] (Rec: 09/02/20 13:22 [facility] [id number]) Posture Evaluation Comments Posture Comments scoliosis with convexity to the left, pt is shifted and sidebent left Palpation Assessment Location left foot 4th and 5th extensor tendon Palpation Details tightness of the extensor tendon on the left foot especially the 4th and 5th toes. Pt does have a history of a fusion for her great toe but it is in a valgus position again. piriformis Palpation Location left piriformis Palpation Details tightness and guarding quadratus lumborum Palpation Location left quadratus lumborum Palpation Details tightness and guarding left thoracic and lumbar paraspinals Palpation Location left thoracic and lumbar paraspinals Palpation Details tightness and guarding of the left thoracic and lumbar paraspinals PT-OP-K Range of Motion Start: 09/02/20 10:31 Freq: Status: Active Protocol: Document 09/02/20 10:30 [facility] (Rec: 09/02/20 13:22 [facility] [id number]) Lumbar Spine Range of Motion Lumbar Spine Active Flexion 60 Lateral Flexion Left 10 Lateral Flexion Right 5 Comments decreased sidebending to the right, decreased lumbar flexion ROM PT-OP-Q Treatments Start: 09/02/20 10:31 Freq: Status: Active Protocol: Document 11/04/20 12:45 [facility] (Rec: 11/11/20 13:52 [facility] [email or web address]) Therapeutic Exercises Standing Exercises standing shoulder extension Reps/Minutes 3 x 10 reps standing rows Reps/Minutes 3 x 10 reps with level 2 standing shoulder ER Reps/Minutes 3 x 10 reps with level 2 Manual Therapy Treatment Soft Tissue Mobilization left thoracic and lumbar paraspinals Mobilization Type Myofascial Release Intensity/Depth Moderate Body Position Prone Comments prone over body pillow, scoliosis with convexity to the left upper trapezius release Body Location upper trapezius release Mobilization Type Myofascial Release Body Position Supine Self-Care/Home Management Treatment Education Patient Education Home Exercise Program Other Education review of HEP and rotator cuff strengthening PT-OP-R Modalities Start: 10/15/20 17:00 Freq: Status: Active Protocol: Document 10/15/20 13:00 [facility] (Rec: 10/15/20 17:04 [facility] [id number]) Ultrasound Therapy Treatment right upper trapexius Patient Position Sidelying Coupling Medium Ultrasound Gel Applicator Size (cm2) 5 Mode Setting Continuous Duty Cycle 100% Intensity Setting (w/cm2) 1.5 PT-OP-T Assessment and Plan Start: 09/02/20 10:31 Freq: Status: Active Protocol: Document 11/04/20 12:52 [facility] (Rec: 11/04/20 13:13 [facility] [id number]) Physical Therapy Assessment Assessment Summary Assessment nasra neff continues to note improvement of symptoms in her neck and has returned to the pool. We reviewed her shoulder ER exercises today as she was flexing her bicep quite a bit and I helped her keep her elbow at 90degrees to decrease biceps tension Physical Therapy Plan Frequency and Duration Frequency of Treatment 1x/Week Duration of Treatment 8 Plan of Care Start Date 10/28/20 Plan of Care End Date 12/23/20 Next Visit Focus/Plan Next Note Type Treatment Note Next Visit Plan continue working on stabilization, stretching, and manual work for the spine
--- NOTE | 2020-11-11 13:59 | PT.OTN ---
Current Diagnoses Scoliosis, unspecified (11/11/20) Dorsalgia, unspecified (11/11/20) Physical Therapy Treatment Note PT-OP-A Visit Information Start: 09/02/20 10:31 Freq: Status: Active Protocol: Document 11/11/20 13:55 [facility] (Rec: 11/11/20 13:58 REPLACED BY [facility] [email or web address]) Out-Patient Physical Therapy Visit Information Visit Information Visit Type Treatment Note Visit Start Time 12:50 Visit Stop Time 13:35 Total Visit Minutes 45 Visit Number 9 PT-OP-B Current Condition Start: 09/02/20 10:31 Freq: Status: Active Protocol: Document 09/02/20 10:30 [facility] (Rec: 09/02/20 11:20 [facility] [id number]) Current Condition History of Current Condition Onset Date pt experienced a recentl flare up of symptoms Current Complaints thoracic and low back pain, left foot pain with walking History of Current Condition pt would like to strengthen for osteopenia an has questions regarding the exercises at the pool. She has questions on the leg press and hip abduction machines. She describes left sided rib cage tightness and wraps around to the front of her pelvis. She feels a pull on the lateral side of her foot. Current Functional Impairments (Reported) Functional Limitations- ADL's pain prevents Yaritza Neff from lifting anything heavy, pt can stand as long as she wants but it increaases her pain PT-OP-C Subjective Start: 09/02/20 10:31 Freq: Status: Active Protocol: Document 11/11/20 13:55 [facility] (Rec: 11/11/20 13:58 REPLACED BY [facility] [email or web address]) OP-PT Subjective Patient Comments Patient Comments pt reports she did feel abdominal discomfort this past week due to her pelvis being out of alignement. She feels better today in her pelvis but wants us to check her alignment PT-OP-F Manual Assessment Start: 09/02/20 10:31 Freq: Status: Active Protocol: Document 09/02/20 10:30 [facility] (Rec: 09/02/20 13:22 REPLACED BY [facility] [id number]) Manual Assessments Soft Tissue Assessment Soft Tissue Mobility Assessment tightness in the piriformis muscle left greater than right , tightness Left ITB tightness of the lumbar and thoracic paraspinals left greater than right Joint Mobility Assessment Joint Mobility Assessment hypomobility of the thoracic spine with PA glides PT-OP-J Posture/Palpation/Skin Start: 09/02/20 10:31 Freq: Status: Active Protocol: Document 09/02/20 10:30 [facility] (Rec: 09/02/20 13:22 REPLACED BY [facility] [id number]) Posture Evaluation Comments Posture Comments scoliosis with convexity to the left, pt is shifted and sidebent left Palpation Assessment Location left foot 4th and 5th extensor tendon Palpation Details tightness of the extensor tendon on the left foot especially the 4th and 5th toes. Pt does have a history of a fusion for her great toe but it is in a valgus position again. piriformis Palpation Location left piriformis Palpation Details tightness and guarding quadratus lumborum Palpation Location left quadratus lumborum Palpation Details tightness and guarding left thoracic and lumbar paraspinals Palpation Location left thoracic and lumbar paraspinals Palpation Details tightness and guarding of the left thoracic and lumbar paraspinals PT-OP-K Range of Motion Start: 09/02/20 10:31 Freq: Status: Active Protocol: Document 09/02/20 10:30 REPLACED BY [facility] (Rec: 09/02/20 13:22 REPLACED BY [facility] [id number]) Lumbar Spine Range of Motion Lumbar Spine Active Flexion 60 Lateral Flexion Left 10 Lateral Flexion Right 5 Comments decreased sidebending to the right, decreased lumbar flexion ROM PT-OP-Q Treatments Start: 09/02/20 10:31 Freq: Status: Active Protocol: Document 11/11/20 13:55 REPLACED BY [facility] (Rec: 11/11/20 13:58 REPLACED BY [facility] [email or web address]) Manual Therapy Treatment Soft Tissue Mobilization left quadratus lumborum release Mobilization Type Myofascial Release Body Position Prone Comments prone on body pillow left thoracic and lumbar paraspinals Mobilization Type Myofascial Release Intensity/Depth Moderate Body Position Prone Comments prone over body pillow, scoliosis with convexity to the left 5 Body Location left ITB and TFL release Comments in supine 4 Mobilization Type Myofascial Release 3 Body Location Bilateral piriformis release Comments right sided piriformis tightness today Manual Techniques cervical scalene stretches B Type cervical scalene stretches B Reps/Duration 30 sec hold for anterior, middle, postierior PT-OP-R Modalities Start: 10/15/20 17:00 Freq: Status: Active Protocol: Document 10/15/20 13:00 [facility] (Rec: 10/15/20 17:04 [facility] [email or web address]) Ultrasound Therapy Treatment right upper trapexius Patient Position Sidelying Coupling Medium Ultrasound Gel Applicator Size (cm2) 5 Mode Setting Continuous Duty Cycle 100% Intensity Setting (w/cm2) 1.5 PT-OP-T Assessment and Plan Start: 09/02/20 10:31 Freq: Status: Active Protocol: Document 11/11/20 13:55 REPLACED BY [facility] (Rec: 11/11/20 13:58 REPLACED BY [facility] [email or web address]) Physical Therapy Assessment Assessment Summary Assessment I did recheck alignement today and Yaritza Neff was equal in her leg length, no additional abdominal discomfort with palpation. Her thoracic mobility spine is feeling improved with the swimming she is doing. Physical Therapy Plan Frequency and Duration Frequency of Treatment 1x/Week Duration of Treatment 8 Plan of Care Start Date 10/28/20 Plan of Care End Date 12/23/20 Therapeutic Interventions Therapeutic Interventions Home Exercise Program, Lymphedema Management, Neuromuscular Re-education, Self-Care/Home Management,Soft Tissue Mobilization, Therapeutic Exercises Next Visit Focus/Plan Next Note Type Treatment Note Next Visit Plan continue working on stabilization, stretching, and manual work for the spine
--- NOTE | 2020-11-18 17:49 | PT.OTN ---
Current Diagnoses Scoliosis, unspecified (11/18/20) Dorsalgia, unspecified (11/18/20) Physical Therapy Treatment Note PT-OP-A Visit Information Start: 09/02/20 10:31 Freq: Status: Active Protocol: Document 11/18/20 12:50 [facility] (Rec: 11/18/20 13:51 [facility] [id number]) Out-Patient Physical Therapy Visit Information Visit Information Visit Type Treatment Note Visit Start Time 12:50 Visit Stop Time 13:35 Total Visit Minutes 45 Visit Number 10 PT-OP-B Current Condition Start: 09/02/20 10:31 Freq: Status: Active Protocol: Document 09/02/20 10:30 [facility] (Rec: 09/02/20 11:20 [facility] [id number]) Current Condition History of Current Condition Onset Date pt experienced a recentl flare up of symptoms Current Complaints thoracic and low back pain, left foot pain with walking History of Current Condition pt would like to strengthen for osteopenia an has questions regarding the exercises at the pool. She has questions on the leg press and hip abduction machines. She describes left sided rib cage tightness and wraps around to the front of her pelvis. She feels a pull on the lateral side of her foot. Current Functional Impairments (Reported) Functional Limitations- ADL's pain prevents Yaritza Neff from lifting anything heavy, pt can stand as long as she wants but it increaases her pain PT-OP-C Subjective Start: 09/02/20 10:31 Freq: Status: Active Protocol: Document 11/18/20 12:50 [facility] (Rec: 11/18/20 13:51 [facility] [id number]) OP-PT Subjective Patient Comments Patient Comments pt reports she did feel her right SI and anterior pelvis this and she was in a hurry after getting out the pool and she wonders if this aggravated her pelvis. It is better today. right shoulder still feels tight Patient Reported Progress Improving PT-OP-F Manual Assessment Start: 09/02/20 10:31 Freq: Status: Active Protocol: Document 09/02/20 10:30 [facility] (Rec: 09/02/20 13:22 [facility] [id number]) Manual Assessments Soft Tissue Assessment Soft Tissue Mobility Assessment tightness in the piriformis muscle left greater than right , tightness Left ITB tightness of the lumbar and thoracic paraspinals left greater than right Joint Mobility Assessment Joint Mobility Assessment hypomobility of the thoracic spine with PA glides PT-OP-J Posture/Palpation/Skin Start: 09/02/20 10:31 Freq: Status: Active Protocol: Document 09/02/20 10:30 [facility] (Rec: 09/02/20 13:22 [facility] [id number]) Posture Evaluation Comments Posture Comments scoliosis with convexity to the left, pt is shifted and sidebent left Palpation Assessment Location left foot 4th and 5th extensor tendon Palpation Details tightness of the extensor tendon on the left foot especially the 4th and 5th toes. Pt does have a history of a fusion for her great toe but it is in a valgus position again. piriformis Palpation Location left piriformis Palpation Details tightness and guarding quadratus lumborum Palpation Location left quadratus lumborum Palpation Details tightness and guarding left thoracic and lumbar paraspinals Palpation Location left thoracic and lumbar paraspinals Palpation Details tightness and guarding of the left thoracic and lumbar paraspinals PT-OP-K Range of Motion Start: 09/02/20 10:31 Freq: Status: Active Protocol: Document 09/02/20 10:30 [facility] (Rec: 09/02/20 13:22 [facility] [id number]) Lumbar Spine Range of Motion Lumbar Spine Active Flexion 60 Lateral Flexion Left 10 Lateral Flexion Right 5 Comments decreased sidebending to the right, decreased lumbar flexion ROM PT-OP-Q Treatments Start: 09/02/20 10:31 Freq: Status: Active Protocol: Document 11/18/20 12:50 [facility] (Rec: 11/19/20 17:49 [facility] [email or web address]) Manual Therapy Treatment Soft Tissue Mobilization pecminor manual release Body Location right pec minor manual release Comments good tolerance piriformis release Body Location bilateral piriformis Body Position Prone left quadratus lumborum release Mobilization Type Myofascial Release Body Position Prone Comments prone on body pillow left thoracic and lumbar paraspinals Mobilization Type Myofascial Release Intensity/Depth Moderate Body Position Prone Comments prone over body pillow, scoliosis with convexity to the left PT-OP-R Modalities Start: 10/15/20 17:00 Freq: Status: Active Protocol: Document 10/15/20 13:00 [facility] (Rec: 10/15/20 17:04 [facility] [email or web address]) Ultrasound Therapy Treatment right upper trapexius Patient Position Sidelying Coupling Medium Ultrasound Gel Applicator Size (cm2) 5 Mode Setting Continuous Duty Cycle 100% Intensity Setting (w/cm2) 1.5 PT-OP-T Assessment and Plan Start: 09/02/20 10:31 Freq: Status: Active Protocol: Document 11/18/20 12:50 [facility] (Rec: 11/18/20 13:51 [facility] [id number]) Physical Therapy Assessment Assessment Summary Assessment worked on right shoulder pec minor stretch today and opening up the right shoulder. Her pain is reducing in this area especially as Yaritza Neff has returned to the pool and swimming Physical Therapy Plan Frequency and Duration Frequency of Treatment 1x/Week Duration of Treatment 8 Plan of Care Start Date 10/28/20 Plan of Care End Date 12/23/20 Therapeutic Interventions Therapeutic Interventions Home Exercise Program, Lymphedema Management, Neuromuscular Re-education, Self-Care/Home Management,Soft Tissue Mobilization, Therapeutic Exercises Next Visit Focus/Plan Next Note Type Treatment Note Next Visit Plan continue working on stabilization, stretching, and manual work for the spine
--- NOTE | 2020-11-25 13:46 | PT.OTN ---
Current Diagnoses Scoliosis, unspecified (11/25/20) Dorsalgia, unspecified (11/25/20) Physical Therapy Treatment Note PT-OP-A Visit Information Start: 09/02/20 10:31 Freq: Status: Active Protocol: Document 11/25/20 12:45 [facility] (Rec: 11/25/20 12:56 [facility] [id number]) Out-Patient Physical Therapy Visit Information Visit Information Visit Type Treatment Note Visit Start Time 12:45 Visit Stop Time 13:30 Total Visit Minutes 45 Visit Number 11 PT-OP-B Current Condition Start: 09/02/20 10:31 Freq: Status: Active Protocol: Document 09/02/20 10:30 [facility] (Rec: 09/02/20 11:20 [facility] [id number]) Current Condition History of Current Condition Onset Date pt experienced a recentl flare up of symptoms Current Complaints thoracic and low back pain, left foot pain with walking History of Current Condition pt would like to strengthen for osteopenia an has questions regarding the exercises at the pool. She has questions on the leg press and hip abduction machines. She describes left sided rib cage tightness and wraps around to the front of her pelvis. She feels a pull on the lateral side of her foot. Current Functional Impairments (Reported) Functional Limitations- ADL's pain prevents Yaritza Neff from lifting anything heavy, pt can stand as long as she wants but it increaases her pain PT-OP-C Subjective Start: 09/02/20 10:31 Freq: Status: Active Protocol: Document 11/25/20 12:45 [facility] (Rec: 11/25/20 12:56 [facility] [id number]) OP-PT Subjective Patient Comments Patient Comments still feeling some tightness in the right pectoralis PT-OP-F Manual Assessment Start: 09/02/20 10:31 Freq: Status: Active Protocol: Document 09/02/20 10:30 [facility] (Rec: 09/02/20 13:22 [facility] [id number]) Manual Assessments Soft Tissue Assessment Soft Tissue Mobility Assessment tightness in the piriformis muscle left greater than right , tightness Left ITB tightness of the lumbar and thoracic paraspinals left greater than right Joint Mobility Assessment Joint Mobility Assessment hypomobility of the thoracic spine with PA glides PT-OP-J Posture/Palpation/Skin Start: 09/02/20 10:31 Freq: Status: Active Protocol: Document 09/02/20 10:30 [facility] (Rec: 09/02/20 13:22 [facility] [id number]) Posture Evaluation Comments Posture Comments scoliosis with convexity to the left, pt is shifted and sidebent left Palpation Assessment Location left foot 4th and 5th extensor tendon Palpation Details tightness of the extensor tendon on the left foot especially the 4th and 5th toes. Pt does have a history of a fusion for her great toe but it is in a valgus position again. piriformis Palpation Location left piriformis Palpation Details tightness and guarding quadratus lumborum Palpation Location left quadratus lumborum Palpation Details tightness and guarding left thoracic and lumbar paraspinals Palpation Location left thoracic and lumbar paraspinals Palpation Details tightness and guarding of the left thoracic and lumbar paraspinals PT-OP-K Range of Motion Start: 09/02/20 10:31 Freq: Status: Active Protocol: Document 09/02/20 10:30 [facility] (Rec: 09/02/20 13:22 [facility] [id number]) Lumbar Spine Range of Motion Lumbar Spine Active Flexion 60 Lateral Flexion Left 10 Lateral Flexion Right 5 Comments decreased sidebending to the right, decreased lumbar flexion ROM PT-OP-Q Treatments Start: 09/02/20 10:31 Freq: Status: Active Protocol: Document 11/25/20 13:44 [facility] (Rec: 11/25/20 13:46 [facility] [email or web address]) Manual Therapy Treatment Soft Tissue Mobilization pecminor manual release Body Location right pec minor manual release Comments good tolerance left quadratus lumborum release Mobilization Type Myofascial Release Body Position Prone Comments prone on body pillow left thoracic and lumbar paraspinals Mobilization Type Myofascial Release Intensity/Depth Moderate Body Position Prone Comments prone over body pillow, scoliosis with convexity to the left PT-OP-R Modalities Start: 10/15/20 17:00 Freq: Status: Active Protocol: Document 10/15/20 13:00 [facility] (Rec: 10/15/20 17:04 [facility] [id number]) Ultrasound Therapy Treatment right upper trapexius Patient Position Sidelying Coupling Medium Ultrasound Gel Applicator Size (cm2) 5 Mode Setting Continuous Duty Cycle 100% Intensity Setting (w/cm2) 1.5 PT-OP-T Assessment and Plan Start: 09/02/20 10:31 Freq: Status: Active Protocol: Document 11/25/20 13:44 [facility] (Rec: 11/25/20 13:46 [facility] [id number]) Physical Therapy Assessment Assessment Summary Assessment right pectoralis tightness, worked on stretching out the right shoulder and reviewed RC stabilizing exercises for Yaritza Neff Physical Therapy Plan Frequency and Duration Frequency of Treatment 1x/Week Duration of Treatment 8 Plan of Care Start Date 10/28/20 Plan of Care End Date 12/23/20 Therapeutic Interventions Therapeutic Interventions Home Exercise Program, Lymphedema Management, Neuromuscular Re-education, Self-Care/Home Management,Soft Tissue Mobilization, Therapeutic Exercises Next Visit Focus/Plan Next Note Type Treatment Note Next Visit Plan continue working on stabilization, stretching, and manual work for the spine
--- NOTE | 2020-12-02 13:46 | PT.OTN ---
Current Diagnoses Scoliosis, unspecified (12/02/20) Dorsalgia, unspecified (12/02/20) Physical Therapy Treatment Note PT-OP-A Visit Information Start: 09/02/20 10:31 Freq: Status: Active Protocol: Document 12/02/20 12:45 [facility] (Rec: 12/02/20 13:44 [facility] [email or web address]) Out-Patient Physical Therapy Visit Information Visit Information Visit Type Treatment Note Visit Start Time 12:45 Visit Stop Time 13:30 Total Visit Minutes 45 Visit Number 12 PT-OP-B Current Condition Start: 09/02/20 10:31 Freq: Status: Active Protocol: Document 09/02/20 10:30 [facility] (Rec: 09/02/20 11:20 [facility] [id number]) Current Condition History of Current Condition Onset Date pt experienced a recentl flare up of symptoms Current Complaints thoracic and low back pain, left foot pain with walking History of Current Condition pt would like to strengthen for osteopenia an has questions regarding the exercises at the pool. She has questions on the leg press and hip abduction machines. She describes left sided rib cage tightness and wraps around to the front of her pelvis. She feels a pull on the lateral side of her foot. Current Functional Impairments (Reported) Functional Limitations- ADL's pain prevents Yaritza Neff from lifting anything heavy, pt can stand as long as she wants but it increaases her pain PT-OP-C Subjective Start: 09/02/20 10:31 Freq: Status: Active Protocol: Document 12/02/20 12:45 [facility] (Rec: 12/02/20 13:44 [facility] [id number]) OP-PT Subjective Patient Comments Patient Comments pt reports her shoulder is feeling better, still tightness right sacral region and left anterior pelvis PT-OP-F Manual Assessment Start: 09/02/20 10:31 Freq: Status: Active Protocol: Document 09/02/20 10:30 [facility] (Rec: 09/02/20 13:22 [facility] [id number]) Manual Assessments Soft Tissue Assessment Soft Tissue Mobility Assessment tightness in the piriformis muscle left greater than right , tightness Left ITB tightness of the lumbar and thoracic paraspinals left greater than right Joint Mobility Assessment Joint Mobility Assessment hypomobility of the thoracic spine with PA glides PT-OP-J Posture/Palpation/Skin Start: 07/14/21 10:31 Freq: Status: Active Protocol: Document 09/02/20 10:30 [facility] (Rec: 09/02/20 13:22 [facility] [id number]) Posture Evaluation Comments Posture Comments scoliosis with convexity to the left, pt is shifted and sidebent left Palpation Assessment Location left foot 4th and 5th extensor tendon Palpation Details tightness of the extensor tendon on the left foot especially the 4th and 5th toes. Pt does have a history of a fusion for her great toe but it is in a valgus position again. piriformis Palpation Location left piriformis Palpation Details tightness and guarding quadratus lumborum Palpation Location left quadratus lumborum Palpation Details tightness and guarding left thoracic and lumbar paraspinals Palpation Location left thoracic and lumbar paraspinals Palpation Details tightness and guarding of the left thoracic and lumbar paraspinals PT-OP-K Range of Motion Start: 09/02/20 10:31 Freq: Status: Active Protocol: Document 09/02/20 10:30 [facility] (Rec: 09/02/20 13:22 [facility] [id number]) Lumbar Spine Range of Motion Lumbar Spine Active Flexion 60 Lateral Flexion Left 10 Lateral Flexion Right 5 Comments decreased sidebending to the right, decreased lumbar flexion ROM PT-OP-Q Treatments Start: 09/02/20 10:31 Freq: Status: Active Protocol: Document 12/02/20 12:45 [facility] (Rec: 12/02/20 13:44 [facility] [id number]) Manual Therapy Treatment Soft Tissue Mobilization piriformis release Body Location bilateral piriformis Body Position Prone left quadratus lumborum release Mobilization Type Myofascial Release Body Position Prone Comments prone on body pillow left thoracic and lumbar paraspinals Mobilization Type Myofascial Release Intensity/Depth Moderate Body Position Prone Comments prone over body pillow, scoliosis with convexity to the left Manual Techniques sidelying quad stretch left Reps/Duration 2 min hold PT-OP-R Modalities Start: 10/15/20 17:00 Freq: Status: Active Protocol: Document 10/15/20 13:00 [facility] (Rec: 10/15/20 17:04 [facility] [id number]) Ultrasound Therapy Treatment right upper trapexius Patient Position Sidelying Coupling Medium Ultrasound Gel Applicator Size (cm2) 5 Mode Setting Continuous Duty Cycle 100% Intensity Setting (w/cm2) 1.5 PT-OP-T Assessment and Plan Start: 09/02/20 10:31 Freq: Status: Active Protocol: Document 12/02/20 12:45 [facility] (Rec: 12/02/20 13:44 [facility] [email or web address]) Physical Therapy Assessment Assessment Summary Assessment pt to work on standing quad stretches in the pool. She is doing better with improved ROM right anterior shoulder. She will be traveling and resume PT the first december Physical Therapy Plan Frequency and Duration Frequency of Treatment 1x/Week Duration of Treatment 8 Plan of Care Start Date 10/28/20 Plan of Care End Date 12/23/20 Therapeutic Interventions Therapeutic Interventions Home Exercise Program, Lymphedema Management, Neuromuscular Re-education, Self-Care/Home Management,Soft Tissue Mobilization, Therapeutic Exercises Next Visit Focus/Plan Next Note Type Progress Note Next Visit Plan continue working on stabilization, stretching, and manual work for the spine
--- NOTE | 2020-12-23 14:25 | PT.OTN ---
Current Diagnoses Scoliosis, unspecified (12/23/20) Dorsalgia, unspecified (12/23/20) Physical Therapy Treatment Note PT-OP-A Visit Information Start: 09/02/20 10:31 Freq: Status: Active Protocol: Document 12/23/20 14:18 [facility] (Rec: 12/23/20 14:25 [facility] [id number]) Out-Patient Physical Therapy Visit Information Visit Information Visit Type Treatment Note Visit Start Time 12:00 Visit Stop Time 12:45 Total Visit Minutes 45 Visit Number 13 PT-OP-B Current Condition Start: 09/02/20 10:31 Freq: Status: Active Protocol: Document 09/02/20 10:30 [facility] (Rec: 09/02/20 11:20 [facility] [id number]) Current Condition History of Current Condition Onset Date pt experienced a recentl flare up of symptoms Current Complaints thoracic and low back pain, left foot pain with walking History of Current Condition pt would like to strengthen for osteopenia an has questions regarding the exercises at the pool. She has questions on the leg press and hip abduction machines. She describes left sided rib cage tightness and wraps around to the front of her pelvis. She feels a pull on the lateral side of her foot. Current Functional Impairments (Reported) Functional Limitations- ADL's pain prevents Yaritza Neff from lifting anything heavy, pt can stand as long as she wants but it increaases her pain PT-OP-C Subjective Start: 09/02/20 10:31 Freq: Status: Active Protocol: Document 12/23/20 14:18 [facility] (Rec: 12/23/20 14:25 [facility] [email or web address]) OP-PT Subjective Patient Comments Patient Comments Yaritza Neff just returned from visiting her daughter in [place]. She notes on the flight home her back was very uncomfortable. She slept on her son's air mattress once home and feels this aggravated her symptoms. She reports feeling shifted now in her spine PT-OP-F Manual Assessment Start: 09/02/20 10:31 Freq: Status: Active Protocol: Document 09/02/20 10:30 [facility] (Rec: 09/02/20 13:22 [facility] [id number]) Manual Assessments Soft Tissue Assessment Soft Tissue Mobility Assessment tightness in the piriformis muscle left greater than right , tightness Left ITB tightness of the lumbar and thoracic paraspinals left greater than right Joint Mobility Assessment Joint Mobility Assessment hypomobility of the thoracic spine with PA glides PT-OP-J Posture/Palpation/Skin Start: 09/02/20 10:31 Freq: Status: Active Protocol: Document 09/02/20 10:30 [facility] (Rec: 09/02/20 13:22 [facility] [id number]) Posture Evaluation Comments Posture Comments scoliosis with convexity to the left, pt is shifted and sidebent left Palpation Assessment Location left foot 4th and 5th extensor tendon Palpation Details tightness of the extensor tendon on the left foot especially the 4th and 5th toes. Pt does have a history of a fusion for her great toe but it is in a valgus position again. piriformis Palpation Location left piriformis Palpation Details tightness and guarding quadratus lumborum Palpation Location left quadratus lumborum Palpation Details tightness and guarding left thoracic and lumbar paraspinals Palpation Location left thoracic and lumbar paraspinals Palpation Details tightness and guarding of the left thoracic and lumbar paraspinals PT-OP-K Range of Motion Start: 09/02/20 10:31 Freq: Status: Active Protocol: Document 09/02/20 10:30 [facility] (Rec: 09/02/20 13:22 [facility] [id number]) Lumbar Spine Range of Motion Lumbar Spine Active Flexion 60 Lateral Flexion Left 10 Lateral Flexion Right 5 Comments decreased sidebending to the right, decreased lumbar flexion ROM PT-OP-Q Treatments Start: 09/02/20 10:31 Freq: Status: Active Protocol: Document 12/23/20 14:18 [facility] (Rec: 12/23/20 14:25 [facility] [id number]) Manual Therapy Treatment Soft Tissue Mobilization piriformis release Body Location bilateral piriformis Body Position Prone left quadratus lumborum release Mobilization Type Myofascial Release Body Position Prone Comments prone on body pillow left thoracic and lumbar paraspinals Mobilization Type Myofascial Release Intensity/Depth Moderate Body Position Prone Comments prone over body pillow, scoliosis with convexity to the left Manual Techniques manual down glide of the left ilium Body Position Sidelying Comments pt right sidelying, down glide applied to the iliac crest PT-OP-R Modalities Start: 10/15/20 17:00 Freq: Status: Active Protocol: Document 10/15/20 13:00 [facility] (Rec: 10/15/20 17:04 [facility] [id number]) Ultrasound Therapy Treatment right upper trapexius Patient Position Sidelying Coupling Medium Ultrasound Gel Applicator Size (cm2) 5 Mode Setting Continuous Duty Cycle 100% Intensity Setting (w/cm2) 1.5 PT-OP-T Assessment and Plan Start: 09/02/20 10:31 Freq: Status: Active Protocol: Document 12/23/20 14:18 [facility] (Rec: 12/23/20 14:25 [facility] [email or web address]) Physical Therapy Assessment Goals osteopenia and pt lacks a weight training program Head Of Digital Goal (LTG) Yaritza Neff is independent with a HEP for weight bearing exercises and gym exercises to help with improved muscle strength and bone mass. PT has been working with her weights and resistant bands at home. She has not yet started at the pool gym with the weights yet. GOAL MET LTG Duration 8 weeks pain increases with standing Senior Care Goal (LTG) pts standing tolerance has increased to 2 hours Good progress LTG Duration 8 weeks Muscle guarding and spasm of the left thoracic and lumbar paraspinals Short Term Goal (STG) Reduce muscle guarding and spasm of the thoracic and lumbar paraspinals Some progress STG Duration 6 weeks thoracic and low back pain Senior Care Goal (LTG) Yaritza Neff reports a reduction in pain of the left thoracic and low back region, pain levels drop to 1/10 Some progress LTG Duration 8 weeks Assessment Summary Assessment Yaritza Neff has had a flare up of symptoms following her travel to [place]. She was quite shifted to the left today. I worked with manual therapy techniques to help align her spine and she has a postural program she is working on as well. She would benefit from continued PT Physical Therapy Plan Frequency and Duration Frequency of Treatment 1x/Week Duration of Treatment 8 Plan of Care Start Date 12/23/20 Plan of Care End Date 02/22/21 Therapeutic Interventions Therapeutic Interventions Home Exercise Program, Lymphedema Management, Neuromuscular Re-education, Self-Care/Home Management,Soft Tissue Mobilization, Therapeutic Exercises Next Visit Focus/Plan Next Note Type Treatment Note Next Visit Plan postural program, manual therapy work for the QL and pelvis, core stabilization
--- NOTE | 2020-12-23 14:26 | PT.OPPOC ---
Physical, Occupational & Speech Therapy At [facility] Current Diagnoses Scoliosis, unspecified (12/23/20) Dorsalgia, unspecified (12/23/20) Visit Care Team Role Provider Type Lan Gomes MD Attending Provider Physician Primary Care Provider Referring Provider Specialty: Family Practice Address: [address] [place] [address], [id number] Email: [email or web address] Plan Of Care PT-OP-T Assessment and Plan Start: 09/02/20 10:31 Freq: Status: Active Protocol: Document 12/23/20 14:18 [facility] (Rec: 12/23/20 14:25 [facility] [email or web address]) Physical Therapy Assessment Goals osteopenia and pt lacks a weight training program Shelter Goal (LTG) Yaritza Neff is independent with a HEP for weight bearing exercises and gym exercises to help with improved muscle strength and bone mass. PT has been working with her weights and resistant bands at home. She has not yet started at the pool gym with the weights yet. GOAL MET LTG Duration 8 weeks pain increases with standing Shelter Goal (LTG) pts standing tolerance has increased to 2 hours Good progress LTG Duration 8 weeks Muscle guarding and spasm of the left thoracic and lumbar paraspinals Short Term Goal (STG) Reduce muscle guarding and spasm of the thoracic and lumbar paraspinals Some progress STG Duration 6 weeks thoracic and low back pain Copy Operator Goal (LTG) Yaritza Neff reports a reduction in pain of the left thoracic and low back region, pain levels drop to 1/10 Some progress LTG Duration 8 weeks Assessment Summary Assessment Yaritza Neff has had a flare up of symptoms following her travel to [place]. She was quite shifted to the left today. I worked with manual therapy techniques to help align her spine and she has a postural program she is working on as well. She would benefit from continued PT Physical Therapy Plan Frequency and Duration Frequency of Treatment 1x/Week Duration of Treatment 8 Plan of Care Start Date 12/23/20 Plan of Care End Date 02/22/21 Therapeutic Interventions Therapeutic Interventions Home Exercise Program, Lymphedema Management, Neuromuscular Re-education, Self-Care/Home Management,Soft Tissue Mobilization, Therapeutic Exercises Next Visit Focus/Plan Next Note Type Treatment Note Next Visit Plan postural program, manual therapy work for the QL and pelvis, core stabilization Plan of Care Dates Plan of Care Start Date 12/23/20 Plan of Care End Date 02/22/21 Electronically Signed by: Danya Blanco, PT 12/23/20 [id number] Please Sign and Return: I have reviewed this Plan of Care and certify that the skilled therapy services above are required to meet the patient?s needs. Physician Signature Date Printed Name and Credentials Clinical Instructor Signature Printed Name and Credentials
--- NOTE | 2021-01-06 13:14 | PT.OTN ---
Current Diagnoses Scoliosis, unspecified (01/06/21) Dorsalgia, unspecified (01/06/21) Physical Therapy Treatment Note PT-OP-A Visit Information Start: 09/02/20 10:31 Freq: Status: Active Protocol: Document 01/06/21 12:10 [facility] (Rec: 01/06/21 13:10 [facility] [id number]) Out-Patient Physical Therapy Visit Information Visit Information Visit Type Treatment Note Visit Start Time 12:10 Visit Stop Time 12:55 Total Visit Minutes 45 Visit Number 14 PT-OP-B Current Condition Start: 09/02/20 10:31 Freq: Status: Active Protocol: Document 09/02/20 10:30 [facility] (Rec: 09/02/20 11:20 [facility] [id number]) Current Condition History of Current Condition Onset Date pt experienced a recentl flare up of symptoms Current Complaints thoracic and low back pain, left foot pain with walking History of Current Condition pt would like to strengthen for osteopenia an has questions regarding the exercises at the pool. She has questions on the leg press and hip abduction machines. She describes left sided rib cage tightness and wraps around to the front of her pelvis. She feels a pull on the lateral side of her foot. Current Functional Impairments (Reported) Functional Limitations- ADL's pain prevents Yaritza Neff from lifting anything heavy, pt can stand as long as she wants but it increaases her pain PT-OP-C Subjective Start: 09/02/20 10:31 Freq: Status: Active Protocol: Document 01/06/21 12:10 [facility] (Rec: 01/06/21 13:04 [facility] [id number]) OP-PT Subjective Patient Comments Patient Comments pt feels her right arm is feeling better this week and she is not feeling like she is as twised. She is noting left knee swelling from after her flight and a vericosity on the medial aspect of her knee Patient Reported Progress Improving PT-OP-F Manual Assessment Start: 09/02/20 10:31 Freq: Status: Active Protocol: Document 09/02/20 10:30 [facility] (Rec: 09/02/20 13:22 [facility] [id number]) Manual Assessments Soft Tissue Assessment Soft Tissue Mobility Assessment tightness in the piriformis muscle left greater than right , tightness Left ITB tightness of the lumbar and thoracic paraspinals left greater than right Joint Mobility Assessment Joint Mobility Assessment hypomobility of the thoracic spine with PA glides PT-OP-J Posture/Palpation/Skin Start: 09/02/20 10:31 Freq: Status: Active Protocol: Document 09/02/20 10:30 [facility] (Rec: 09/02/20 13:22 [facility] [id number]) Posture Evaluation Comments Posture Comments scoliosis with convexity to the left, pt is shifted and sidebent left Palpation Assessment Location left foot 4th and 5th extensor tendon Palpation Details tightness of the extensor tendon on the left foot especially the 4th and 5th toes. Pt does have a history of a fusion for her great toe but it is in a valgus position again. piriformis Palpation Location left piriformis Palpation Details tightness and guarding quadratus lumborum Palpation Location left quadratus lumborum Palpation Details tightness and guarding left thoracic and lumbar paraspinals Palpation Location left thoracic and lumbar paraspinals Palpation Details tightness and guarding of the left thoracic and lumbar paraspinals PT-OP-K Range of Motion Start: 09/02/20 10:31 Freq: Status: Active Protocol: Document 09/02/20 10:30 [facility] (Rec: 09/02/20 13:22 [facility] [id number]) Lumbar Spine Range of Motion Lumbar Spine Active Flexion 60 Lateral Flexion Left 10 Lateral Flexion Right 5 Comments decreased sidebending to the right, decreased lumbar flexion ROM PT-OP-Q Treatments Start: 09/02/20 10:31 Freq: Status: Active Protocol: Document 01/06/21 12:10 [facility] (Rec: 01/06/21 13:10 [facility] [id number]) Manual Therapy Treatment Soft Tissue Mobilization left quadratus lumborum release Mobilization Type Myofascial Release Body Position Prone Comments prone on body pillow left thoracic and lumbar paraspinals Mobilization Type Myofascial Release Intensity/Depth Moderate Body Position Prone Comments prone over body pillow, scoliosis with convexity to the left Self-Care/Home Management Treatment Education Patient Education Home Exercise Program Other Education pt educated in wearing compression stockings when flying, legs up the wall decompression exercise and dry brushing PT-OP-R Modalities Start: 10/15/20 17:00 Freq: Status: Active Protocol: Document 10/15/20 13:00 [facility] (Rec: 10/15/20 17:04 [facility] [id number]) Ultrasound Therapy Treatment right upper trapexius Patient Position Sidelying Coupling Medium Ultrasound Gel Applicator Size (cm2) 5 Mode Setting Continuous Duty Cycle 100% Intensity Setting (w/cm2) 1.5 PT-OP-T Assessment and Plan Start: 09/02/20 10:31 Freq: Status: Active Protocol: Document 01/06/21 12:15 [facility] (Rec: 01/06/21 13:04 [facility] [id number]) Physical Therapy Assessment Assessment Summary Assessment added in legs up the wall, dry brushing, compression stockings for flying. Yaritza Neff was not shifted today and has been doing her exercises, stretches and pool therapy Physical Therapy Plan Frequency and Duration Frequency of Treatment 1x/Week Duration of Treatment 8 Plan of Care Start Date 12/23/20 Plan of Care End Date 02/22/21
--- NOTE | 2021-01-12 12:14 | PT.OTN ---
Current Diagnoses Scoliosis, unspecified (01/12/21) Dorsalgia, unspecified (01/12/21) Physical Therapy Treatment Note PT-OP-A Visit Information Start: 09/02/20 10:31 Freq: Status: Active Protocol: Document 01/12/21 09:45 [facility] (Rec: 01/12/21 12:14 [facility] [id number]) Out-Patient Physical Therapy Visit Information Visit Information Visit Type Treatment Note Visit Start Time 09:45 Visit Stop Time 10:30 Total Visit Minutes 45 Visit Number 15 PT-OP-B Current Condition Start: 09/02/20 10:31 Freq: Status: Active Protocol: Document 09/02/20 10:30 [facility] (Rec: 09/02/20 11:20 [facility] [id number]) Current Condition History of Current Condition Onset Date pt experienced a recentl flare up of symptoms Current Complaints thoracic and low back pain, left foot pain with walking History of Current Condition pt would like to strengthen for osteopenia an has questions regarding the exercises at the pool. She has questions on the leg press and hip abduction machines. She describes left sided rib cage tightness and wraps around to the front of her pelvis. She feels a pull on the lateral side of her foot. Current Functional Impairments (Reported) Functional Limitations- ADL's pain prevents Yaritza Neff from lifting anything heavy, pt can stand as long as she wants but it increaases her pain PT-OP-C Subjective Start: 09/02/20 10:31 Freq: Status: Active Protocol: Document 01/12/21 09:45 [facility] (Rec: 01/12/21 12:14 [facility] [id number]) OP-PT Subjective Patient Comments Patient Comments pt reports she is doing better overall with her shoulder and low back and has been working on her stretches. Her chief complaint is bilateral sacral tightness PT-OP-F Manual Assessment Start: 09/02/20 10:31 Freq: Status: Active Protocol: Document 09/02/20 10:30 [facility] (Rec: 09/02/20 13:22 [facility] [id number]) Manual Assessments Soft Tissue Assessment Soft Tissue Mobility Assessment tightness in the piriformis muscle left greater than right , tightness Left ITB tightness of the lumbar and thoracic paraspinals left greater than right Joint Mobility Assessment Joint Mobility Assessment hypomobility of the thoracic spine with PA glides PT-OP-J Posture/Palpation/Skin Start: 09/02/20 10:31 Freq: Status: Active Protocol: Document 09/02/20 10:30 [facility] (Rec: 09/02/20 13:22 [facility] [id number]) Posture Evaluation Comments Posture Comments scoliosis with convexity to the left, pt is shifted and sidebent left Palpation Assessment Location left foot 4th and 5th extensor tendon Palpation Details tightness of the extensor tendon on the left foot especially the 4th and 5th toes. Pt does have a history of a fusion for her great toe but it is in a valgus position again. piriformis Palpation Location left piriformis Palpation Details tightness and guarding quadratus lumborum Palpation Location left quadratus lumborum Palpation Details tightness and guarding left thoracic and lumbar paraspinals Palpation Location left thoracic and lumbar paraspinals Palpation Details tightness and guarding of the left thoracic and lumbar paraspinals PT-OP-K Range of Motion Start: 09/02/20 10:31 Freq: Status: Active Protocol: Document 09/02/20 10:30 [facility] (Rec: 09/02/20 13:22 [facility] [id number]) Lumbar Spine Range of Motion Lumbar Spine Active Flexion 60 Lateral Flexion Left 10 Lateral Flexion Right 5 Comments decreased sidebending to the right, decreased lumbar flexion ROM PT-OP-Q Treatments Start: 09/02/20 10:31 Freq: Status: Active Protocol: Document 01/12/21 09:45 [facility] (Rec: 01/12/21 12:14 [facility] [id number]) Manual Therapy Treatment Soft Tissue Mobilization pecminor manual release Body Location right pec minor manual release Comments good tolerance piriformis release Body Location bilateral piriformis Body Position Prone left quadratus lumborum release Mobilization Type Myofascial Release Body Position Prone Comments prone on body pillow left thoracic and lumbar paraspinals Mobilization Type Myofascial Release Intensity/Depth Moderate Body Position Prone Comments prone over body pillow, scoliosis with convexity to the left PT-OP-R Modalities Start: 10/15/20 17:00 Freq: Status: Active Protocol: Document 10/15/20 13:00 [facility] (Rec: 10/15/20 17:04 [facility] [id number]) Ultrasound Therapy Treatment right upper trapexius Patient Position Sidelying Coupling Medium Ultrasound Gel Applicator Size (cm2) 5 Mode Setting Continuous Duty Cycle 100% Intensity Setting (w/cm2) 1.5 PT-OP-T Assessment and Plan Start: 09/02/20 10:31 Freq: Status: Active Protocol: Document 01/12/21 09:45 [facility] (Rec: 01/12/21 12:14 [facility] [email or web address]) Physical Therapy Assessment Assessment Summary Assessment pt working on all the things we added in last visit and feeling like things are improving. Yaritza neff was not shifted today Physical Therapy Plan Frequency and Duration Frequency of Treatment 1x/Week Duration of Treatment 8 Plan of Care Start Date 12/23/20 Plan of Care End Date 02/22/21 Therapeutic Interventions Therapeutic Interventions Home Exercise Program, Lymphedema Management, Neuromuscular Re-education, Self-Care/Home Management,Soft Tissue Mobilization, Therapeutic Exercises Next Visit Focus/Plan Next Note Type Treatment Note Next Visit Plan postural program, manual therapy work for the QL and pelvis, core stabilization
--- NOTE | 2021-01-21 17:14 | PT.OTN ---
Current Diagnoses Scoliosis, unspecified (01/21/21) Dorsalgia, unspecified (01/21/21) Physical Therapy Treatment Note PT-OP-A Visit Information Start: 09/02/20 10:31 Freq: Status: Active Protocol: Document 01/21/21 09:00 [facility] (Rec: 01/21/21 17:12 [facility] [id number]) Out-Patient Physical Therapy Visit Information Visit Information Visit Type Treatment Note Visit Start Time 09:00 Visit Stop Time 09:45 Total Visit Minutes 45 Visit Number 16 PT-OP-B Current Condition Start: 09/02/20 10:31 Freq: Status: Active Protocol: Document 09/02/20 10:30 [facility] (Rec: 09/02/20 11:20 [facility] [id number]) Current Condition History of Current Condition Onset Date pt experienced a recentl flare up of symptoms Current Complaints thoracic and low back pain, left foot pain with walking History of Current Condition pt would like to strengthen for osteopenia an has questions regarding the exercises at the pool. She has questions on the leg press and hip abduction machines. She describes left sided rib cage tightness and wraps around to the front of her pelvis. She feels a pull on the lateral side of her foot. Current Functional Impairments (Reported) Functional Limitations- ADL's pain prevents Yaritza Neff from lifting anything heavy, pt can stand as long as she wants but it increaases her pain PT-OP-C Subjective Start: 09/02/20 10:31 Freq: Status: Active Protocol: Document 01/21/21 09:00 [facility] (Rec: 01/21/21 17:12 [facility] [id number]) OP-PT Subjective Patient Comments Patient Comments pt reports her shoulder is doing much better, she has been working on her exercises and exercising in the pool. Her pelvis is tight PT-OP-F Manual Assessment Start: 09/02/20 10:31 Freq: Status: Active Protocol: Document 09/02/20 10:30 [facility] (Rec: 09/02/20 13:22 [facility] [id number]) Manual Assessments Soft Tissue Assessment Soft Tissue Mobility Assessment tightness in the piriformis muscle left greater than right , tightness Left ITB tightness of the lumbar and thoracic paraspinals left greater than right Joint Mobility Assessment Joint Mobility Assessment hypomobility of the thoracic spine with PA glides PT-OP-J Posture/Palpation/Skin Start: 09/02/20 10:31 Freq: Status: Active Protocol: Document 09/02/20 10:30 [facility] (Rec: 09/02/20 13:22 [facility] [id number]) Posture Evaluation Comments Posture Comments scoliosis with convexity to the left, pt is shifted and sidebent left Palpation Assessment Location left foot 4th and 5th extensor tendon Palpation Details tightness of the extensor tendon on the left foot especially the 4th and 5th toes. Pt does have a history of a fusion for her great toe but it is in a valgus position again. piriformis Palpation Location left piriformis Palpation Details tightness and guarding quadratus lumborum Palpation Location left quadratus lumborum Palpation Details tightness and guarding left thoracic and lumbar paraspinals Palpation Location left thoracic and lumbar paraspinals Palpation Details tightness and guarding of the left thoracic and lumbar paraspinals PT-OP-K Range of Motion Start: 09/02/20 10:31 Freq: Status: Active Protocol: Document 09/02/20 10:30 [facility] (Rec: 09/02/20 13:22 [facility] [id number]) Lumbar Spine Range of Motion Lumbar Spine Active Flexion 60 Lateral Flexion Left 10 Lateral Flexion Right 5 Comments decreased sidebending to the right, decreased lumbar flexion ROM PT-OP-Q Treatments Start: 09/02/20 10:31 Freq: Status: Active Protocol: Document 01/21/21 09:00 [facility] (Rec: 01/21/21 17:12 [facility] [id number]) Therapeutic Exercises Supine Exercises ITB stretch with strap Reps/Minutes hold 1-2 min Prone Exercises prone quad stretch Reps/Minutes hold 1-2 min Other Exercises iliopsoas stretch Reps/Minutes hold 30-60 seconds Manual Therapy Treatment Soft Tissue Mobilization piriformis release Body Location bilateral piriformis Body Position Prone left quadratus lumborum release Mobilization Type Myofascial Release Body Position Prone Comments prone on body pillow left thoracic and lumbar paraspinals Mobilization Type Myofascial Release Intensity/Depth Moderate Body Position Prone Comments prone over body pillow, scoliosis with convexity to the left PT-OP-R Modalities Start: 10/15/20 17:00 Freq: Status: Active Protocol: Document 10/15/20 13:00 [facility] (Rec: 10/15/20 17:04 [facility] [id number]) Ultrasound Therapy Treatment right upper trapexius Patient Position Sidelying Coupling Medium Ultrasound Gel Applicator Size (cm2) 5 Mode Setting Continuous Duty Cycle 100% Intensity Setting (w/cm2) 1.5 PT-OP-T Assessment and Plan Start: 09/02/20 10:31 Freq: Status: Active Protocol: Document 01/21/21 09:00 [facility] (Rec: 01/21/21 17:14 [facility] [id number]) Physical Therapy Assessment Assessment Summary Assessment Yaritza Neff continues to make progress and is feeling better overall with her upper back and shoulder symptoms. hip flexor stretches were reviewed today as Yaritza Neff was feeling tight in this area Physical Therapy Plan Frequency and Duration Frequency of Treatment 1x/Week Duration of Treatment 8 Plan of Care Start Date 12/23/20 Plan of Care End Date 02/22/21 Therapeutic Interventions Therapeutic Interventions Home Exercise Program, Lymphedema Management, Neuromuscular Re-education, Self-Care/Home Management,Soft Tissue Mobilization, Therapeutic Exercises Next Visit Focus/Plan Next Note Type Treatment Note Next Visit Plan postural program, manual therapy work for the QL and pelvis, core stabilization
--- NOTE | 2021-01-26 09:58 | PT.OTN ---
Current Diagnoses Scoliosis, unspecified (01/26/21) Dorsalgia, unspecified (01/26/21) Physical Therapy Treatment Note PT-OP-A Visit Information Start: 09/02/20 10:31 Freq: Status: Active Protocol: Document 01/26/21 09:03 [facility] (Rec: 01/26/21 09:04 [facility] [id number]) Out-Patient Physical Therapy Visit Information Visit Information Visit Type Treatment Note Visit Start Time 09:03 Visit Stop Time 09:45 Total Visit Minutes 42 Visit Number 17 PT-OP-B Current Condition Start: 09/02/20 10:31 Freq: Status: Active Protocol: Document 09/02/20 10:30 [facility] (Rec: 09/02/20 11:20 [facility] [id number]) Current Condition History of Current Condition Onset Date pt experienced a recentl flare up of symptoms Current Complaints thoracic and low back pain, left foot pain with walking History of Current Condition pt would like to strengthen for osteopenia an has questions regarding the exercises at the pool. She has questions on the leg press and hip abduction machines. She describes left sided rib cage tightness and wraps around to the front of her pelvis. She feels a pull on the lateral side of her foot. Current Functional Impairments (Reported) Functional Limitations- ADL's pain prevents Yaritza Neff from lifting anything heavy, pt can stand as long as she wants but it increaases her pain PT-OP-C Subjective Start: 09/02/20 10:31 Freq: Status: Active Protocol: Document 01/26/21 09:03 [facility] (Rec: 01/26/21 09:57 [facility] [id number]) OP-PT Subjective Patient Comments Patient Comments Yaritza Neff has been feeling the lateral aspect of her knee more and reports tightness up the lateral knee PT-OP-F Manual Assessment Start: 09/02/20 10:31 Freq: Status: Active Protocol: Document 09/02/20 10:30 [facility] (Rec: 09/02/20 13:22 [facility] [id number]) Manual Assessments Soft Tissue Assessment Soft Tissue Mobility Assessment tightness in the piriformis muscle left greater than right , tightness Left ITB tightness of the lumbar and thoracic paraspinals left greater than right Joint Mobility Assessment Joint Mobility Assessment hypomobility of the thoracic spine with PA ken PT-OP-J Posture/Palpation/Skin Start: 09/02/20 10:31 Freq: Status: Active Protocol: Document 09/02/20 10:30 [facility] (Rec: 09/02/20 13:22 [facility] [id number]) Posture Evaluation Comments Posture Comments scoliosis with convexity to the left, pt is shifted and sidebent left Palpation Assessment Location left foot 4th and 5th extensor tendon Palpation Details tightness of the extensor tendon on the left foot especially the 4th and 5th toes. Pt does have a history of a fusion for her great toe but it is in a valgus position again. piriformis Palpation Location left piriformis Palpation Details tightness and guarding quadratus lumborum Palpation Location left quadratus lumborum Palpation Details tightness and guarding left thoracic and lumbar paraspinals Palpation Location left thoracic and lumbar paraspinals Palpation Details tightness and guarding of the left thoracic and lumbar paraspinals PT-OP-K Range of Motion Start: 09/02/20 10:31 Freq: Status: Active Protocol: Document 09/02/20 10:30 [facility] (Rec: 09/02/20 13:22 [facility] [id number]) Lumbar Spine Range of Motion Lumbar Spine Active Flexion 60 Lateral Flexion Left 10 Lateral Flexion Right 5 Comments decreased sidebending to the right, decreased lumbar flexion ROM PT-OP-Q Treatments Start: 09/02/20 10:31 Freq: Status: Active Protocol: Document 01/26/21 09:03 [facility] (Rec: 01/26/21 09:57 [facility] [id number]) Manual Therapy Treatment Soft Tissue Mobilization ITB release and quad release Body Location ITB and quad release Mobilization Type Manual Lymphatic Drainage Comments tightness left lateral quad and ITB Manual Techniques 1 Type manual ITB stretch Reps/Duration x 2 min PT-OP-R Modalities Start: 10/15/20 17:00 Freq: Status: Active Protocol: Document 10/15/20 13:00 [facility] (Rec: 10/15/20 17:04 [facility] [id number]) Ultrasound Therapy Treatment right upper trapexius Patient Position Sidelying Coupling Medium Ultrasound Gel Applicator Size (cm2) 5 Mode Setting Continuous Duty Cycle 100% Intensity Setting (w/cm2) 1.5 PT-OP-T Assessment and Plan Start: 09/02/20 10:31 Freq: Status: Active Protocol: Document 01/26/21 09:03 [facility] (Rec: 01/26/21 09:57 [facility] [id number]) Physical Therapy Assessment Assessment Summary Assessment Tony Neff was advised to continue with her lateral walking and to add back in the stationary bike to help build up her VMO to help decrease ITB dominance on the left Physical Therapy Plan Frequency and Duration Frequency of Treatment 1x/Week Duration of Treatment 8 Plan of Care Start Date 12/23/20 Plan of Care End Date 02/22/21 Therapeutic Interventions Therapeutic Interventions Home Exercise Program, Lymphedema Management, Neuromuscular Re-education, Self-Care/Home Management,Soft Tissue Mobilization, Therapeutic Exercises Next Visit Focus/Plan Next Note Type Treatment Note Next Visit Plan reassess the left pelvis and ITB next visit
--- NOTE | 2021-02-02 17:35 | PT.OTN ---
Current Diagnoses Scoliosis, unspecified (02/02/21) Dorsalgia, unspecified (02/02/21) Physical Therapy Treatment Note PT-OP-A Visit Information Start: 09/02/20 10:31 Freq: Status: Active Protocol: Document 02/02/21 13:45 [facility] (Rec: 02/02/21 17:34 [facility] [id number]) Out-Patient Physical Therapy Visit Information Visit Information Visit Type Treatment Note Visit Start Time 13:45 Visit Stop Time 14:30 Total Visit Minutes 45 Visit Number 18 PT-OP-B Current Condition Start: 09/02/20 10:31 Freq: Status: Active Protocol: Document 09/02/20 10:30 [facility] (Rec: 09/02/20 11:20 [facility] [id number]) Current Condition History of Current Condition Onset Date pt experienced a recentl flare up of symptoms Current Complaints thoracic and low back pain, left foot pain with walking History of Current Condition pt would like to strengthen for osteopenia an has questions regarding the exercises at the pool. She has questions on the leg press and hip abduction machines. She describes left sided rib cage tightness and wraps around to the front of her pelvis. She feels a pull on the lateral side of her foot. Current Functional Impairments (Reported) Functional Limitations- ADL's pain prevents Yaritza Neff from lifting anything heavy, pt can stand as long as she wants but it increaases her pain PT-OP-C Subjective Start: 09/02/20 10:31 Freq: Status: Active Protocol: Document 02/02/21 13:45 [facility] (Rec: 02/02/21 17:34 [facility] [id number]) OP-PT Subjective Patient Comments Patient Comments Yaritza Neff has been doing the ITB stretch and feels it is helping, she does feel the rigth sided pec minor tightness today and tightness in her sacrum PT-OP-F Manual Assessment Start: 09/02/20 10:31 Freq: Status: Active Protocol: Document 09/02/20 10:30 [facility] (Rec: 09/02/20 13:22 [facility] [id number]) Manual Assessments Soft Tissue Assessment Soft Tissue Mobility Assessment tightness in the piriformis muscle left greater than right , tightness Left ITB tightness of the lumbar and thoracic paraspinals left greater than right Joint Mobility Assessment Joint Mobility Assessment hypomobility of the thoracic spine with PA glides PT-OP-J Posture/Palpation/Skin Start: 09/02/20 10:31 Freq: Status: Active Protocol: Document 09/02/20 10:30 [facility] (Rec: 09/02/20 13:22 [facility] [id number]) Posture Evaluation Comments Posture Comments scoliosis with convexity to the left, pt is shifted and sidebent left Palpation Assessment Location left foot 4th and 5th extensor tendon Palpation Details tightness of the extensor tendon on the left foot especially the 4th and 5th toes. Pt does have a history of a fusion for her great toe but it is in a valgus position again. piriformis Palpation Location left piriformis Palpation Details tightness and guarding quadratus lumborum Palpation Location left quadratus lumborum Palpation Details tightness and guarding left thoracic and lumbar paraspinals Palpation Location left thoracic and lumbar paraspinals Palpation Details tightness and guarding of the left thoracic and lumbar paraspinals PT-OP-K Range of Motion Start: 09/02/20 10:31 Freq: Status: Active Protocol: Document 09/02/20 10:30 [facility] (Rec: 09/02/20 13:22 [facility] [id number]) Lumbar Spine Range of Motion Lumbar Spine Active Flexion 60 Lateral Flexion Left 10 Lateral Flexion Right 5 Comments decreased sidebending to the right, decreased lumbar flexion ROM PT-OP-Q Treatments Start: 09/02/20 10:31 Freq: Status: Active Protocol: Document 02/02/21 13:45 [facility] (Rec: 02/02/21 17:34 [facility] [id number]) Manual Therapy Treatment Soft Tissue Mobilization pecminor manual release Body Location right pec minor manual release Comments good tolerance piriformis release Body Location bilateral piriformis Body Position Prone left quadratus lumborum release Mobilization Type Myofascial Release Body Position Prone Comments prone on body pillow left thoracic and lumbar paraspinals Mobilization Type Myofascial Release Intensity/Depth Moderate Body Position Prone Comments prone over body pillow, scoliosis with convexity to the left PT-OP-R Modalities Start: 10/15/20 17:00 Freq: Status: Active Protocol: Document 10/15/20 13:00 [facility] (Rec: 10/15/20 17:04 [facility] [id number]) Ultrasound Therapy Treatment right upper trapexius Patient Position Sidelying Coupling Medium Ultrasound Gel Applicator Size (cm2) 5 Mode Setting Continuous Duty Cycle 100% Intensity Setting (w/cm2) 1.5 PT-OP-T Assessment and Plan Start: 09/02/20 10:31 Freq: Status: Active Protocol: Document 02/02/21 13:45 [facility] (Rec: 02/02/21 17:34 [facility] [id number]) Physical Therapy Assessment Assessment Summary Assessment Yaritza Neff has been doing really well with her home program, she has one visit left prior to her next travel date Physical Therapy Plan Frequency and Duration Frequency of Treatment 1x/Week Duration of Treatment 8 Plan of Care Start Date 12/23/20 Plan of Care End Date 02/22/21 Therapeutic Interventions Therapeutic Interventions Home Exercise Program, Lymphedema Management, Neuromuscular Re-education, Self-Care/Home Management,Soft Tissue Mobilization, Therapeutic Exercises
--- NOTE | 2021-02-04 14:13 | PT.OTN ---
Current Diagnoses Scoliosis, unspecified (02/04/21) Dorsalgia, unspecified (02/04/21) Physical Therapy Treatment Note PT-OP-A Visit Information Start: 09/02/20 10:31 Freq: Status: Active Protocol: Document 02/04/21 13:47 [facility] (Rec: 02/04/21 13:49 [facility] [id number]) Out-Patient Physical Therapy Visit Information Visit Information Visit Type Treatment Note Visit Start Time 13:45 Visit Stop Time 14:30 Total Visit Minutes 45 Visit Number 19 PT-OP-B Current Condition Start: 09/02/20 10:31 Freq: Status: Active Protocol: Document 09/02/20 10:30 [facility] (Rec: 09/02/20 11:20 [facility] [id number]) Current Condition History of Current Condition Onset Date pt experienced a recentl flare up of symptoms Current Complaints thoracic and low back pain, left foot pain with walking History of Current Condition pt would like to strengthen for osteopenia an has questions regarding the exercises at the pool. She has questions on the leg press and hip abduction machines. She describes left sided rib cage tightness and wraps around to the front of her pelvis. She feels a pull on the lateral side of her foot. Current Functional Impairments (Reported) Functional Limitations- ADL's pain prevents Yaritza Neff from lifting anything heavy, pt can stand as long as she wants but it increaases her pain PT-OP-C Subjective Start: 09/02/20 10:31 Freq: Status: Active Protocol: Document 02/04/21 13:53 [facility] (Rec: 02/04/21 13:55 [facility] [id number]) OP-PT Subjective Patient Comments Patient Comments pt reports her foot feels better, she is wearing her compression stockings. Her shoulder is feeling better. Patient Reported Progress Improving PT-OP-F Manual Assessment Start: 09/02/20 10:31 Freq: Status: Active Protocol: Document 09/02/20 10:30 [facility] (Rec: 09/02/20 13:22 [facility] [id number]) Manual Assessments Soft Tissue Assessment Soft Tissue Mobility Assessment tightness in the piriformis muscle left greater than right , tightness Left ITB tightness of the lumbar and thoracic paraspinals left greater than right Joint Mobility Assessment Joint Mobility Assessment hypomobility of the thoracic spine with PA glides PT-OP-J Posture/Palpation/Skin Start: 09/02/20 10:31 Freq: Status: Active Protocol: Document 09/02/20 10:30 [facility] (Rec: 09/02/20 13:22 [facility] [id number]) Posture Evaluation Comments Posture Comments scoliosis with convexity to the left, pt is shifted and sidebent left Palpation Assessment Location left foot 4th and 5th extensor tendon Palpation Details tightness of the extensor tendon on the left foot especially the 4th and 5th toes. Pt does have a history of a fusion for her great toe but it is in a valgus position again. piriformis Palpation Location left piriformis Palpation Details tightness and guarding quadratus lumborum Palpation Location left quadratus lumborum Palpation Details tightness and guarding left thoracic and lumbar paraspinals Palpation Location left thoracic and lumbar paraspinals Palpation Details tightness and guarding of the left thoracic and lumbar paraspinals PT-OP-K Range of Motion Start: 09/02/20 10:31 Freq: Status: Active Protocol: Document 09/02/20 10:30 [facility] (Rec: 09/02/20 13:22 [facility] [id number]) Lumbar Spine Range of Motion Lumbar Spine Active Flexion 60 Lateral Flexion Left 10 Lateral Flexion Right 5 Comments decreased sidebending to the right, decreased lumbar flexion ROM PT-OP-Q Treatments Start: 09/02/20 10:31 Freq: Status: Active Protocol: Document 02/04/21 13:45 [facility] (Rec: 02/07/21 14:12 [facility] [id number]) Therapeutic Exercises Supine Exercises hamstring stretch with strap Reps/Minutes hold 1-2 min ITB stretch with strap Reps/Minutes hold 1-2 min Manual Therapy Treatment Soft Tissue Mobilization ITB release and quad release Body Location ITB and quad release Mobilization Type Manual Lymphatic Drainage Comments tightness left lateral quad and ITB pecminor manual release Body Location right pec minor manual release Comments good tolerance sidelying scapular mobilizations Body Position Sidelying Comments with manual pec minor stretch manual cervical traction Mobilization Type Other Comments good tolerance for manual cervical traction suboccipital release Mobilization Type Myofascial Release,Sustained Pressure Body Position Supine piriformis release Body Location bilateral piriformis Body Position Prone left quadratus lumborum release Mobilization Type Myofascial Release Body Position Prone Comments prone on body pillow left thoracic and lumbar paraspinals Mobilization Type Myofascial Release Intensity/Depth Moderate Body Position Prone Comments prone over body pillow, scoliosis with convexity to the left upper trapezius release Body Location upper trapezius release Mobilization Type Myofascial Release Body Position Supine SCM release Body Location Right SCM release Mobilization Type Myofascial Release 2 Body Location lumbar spine paraspinal release Body Position Prone Comments worked on releasing the left side of the lumbar paraspinals and Quadratus lumborum 1 Body Location thoracic paraspinal MFR Body Position Supine Comments scalene and upper trapezius stretching Manual Traction Cervical Details manual cervical traction Comments supine Manual Techniques manual down glide of the left ilium Body Position Sidelying Comments pt right sidelying, down glide applied to the iliac crest sidelying quad stretch left Reps/Duration 2 min hold cervical scalene stretches B Type cervical scalene stretches B Reps/Duration 30 sec hold for anterior, middle, postierior 2 Type supine cervical spine manual stretches 1 Type manual ITB stretch Reps/Duration x 2 min PT-OP-R Modalities Start: 10/15/20 17:00 Freq: Status: Active Protocol: Document 10/15/20 13:00 [facility] (Rec: 10/15/20 17:04 [facility] [id number]) Ultrasound Therapy Treatment right upper trapexius Patient Position Sidelying Coupling Medium Ultrasound Gel Applicator Size (cm2) 5 Mode Setting Continuous Duty Cycle 100% Intensity Setting (w/cm2) 1.5 PT-OP-T Assessment and Plan Start: 09/02/20 10:31 Freq: Status: Active Protocol: Document 02/04/21 13:45 [facility] (Rec: 02/07/21 14:12 [facility] [id number]) Physical Therapy Assessment Assessment Summary Assessment continued to work on pec minor stretch and thoracic mobility for Yaritza Neff. She will be hiking over [place] and will bring [employer] Physical Therapy Plan Frequency and Duration Frequency of Treatment 1x/Week Duration of Treatment 8 Plan of Care Start Date 12/23/20 Plan of Care End Date 02/22/21 Therapeutic Interventions Therapeutic Interventions Home Exercise Program, Lymphedema Management, Neuromuscular Re-education, Self-Care/Home Management,Soft Tissue Mobilization, Therapeutic Exercises Next Visit Focus/Plan Next Note Type Treatment Note Next Visit Plan reassess the left pelvis and ITB next visit
--- NOTE | 2021-02-24 13:40 | PT.OTN ---
Current Diagnoses Scoliosis, unspecified (02/24/21) Dorsalgia, unspecified (02/24/21) Physical Therapy Treatment Note PT-OP-A Visit Information Start: 09/02/20 10:31 Freq: Status: Active Protocol: Document 02/24/21 10:30 [facility] (Rec: 02/24/21 13:38 [facility] [id number]) Out-Patient Physical Therapy Visit Information Visit Information Visit Type Treatment Note Visit Start Time 13:45 Visit Stop Time 14:30 Total Visit Minutes 45 Visit Number 20 PT-OP-B Current Condition Start: 09/02/20 10:31 Freq: Status: Active Protocol: Document 09/02/20 10:30 [facility] (Rec: 09/02/20 11:20 [facility] [id number]) Current Condition History of Current Condition Onset Date pt experienced a recentl flare up of symptoms Current Complaints thoracic and low back pain, left foot pain with walking History of Current Condition pt would like to strengthen for osteopenia an has questions regarding the exercises at the pool. She has questions on the leg press and hip abduction machines. She describes left sided rib cage tightness and wraps around to the front of her pelvis. She feels a pull on the lateral side of her foot. Current Functional Impairments (Reported) Functional Limitations- ADL's pain prevents Yaritza Neff from lifting anything heavy, pt can stand as long as she wants but it increaases her pain PT-OP-C Subjective Start: 09/02/20 10:31 Freq: Status: Active Protocol: Document 02/24/21 10:35 [facility] (Rec: 02/24/21 11:22 [facility] [id number]) OP-PT Subjective Patient Comments Patient Comments stepped up steep steps with her right foot she felt like she hurther right great toe and top of her right foot. It is still swollen now PT-OP-F Manual Assessment Start: 09/02/20 10:31 Freq: Status: Active Protocol: Document 09/02/20 10:30 [facility] (Rec: 09/02/20 13:22 [facility] [id number]) Manual Assessments Soft Tissue Assessment Soft Tissue Mobility Assessment tightness in the piriformis muscle left greater than right , tightness Left ITB tightness of the lumbar and thoracic paraspinals left greater than right Joint Mobility Assessment Joint Mobility Assessment hypomobility of the thoracic spine with PA glides PT-OP-J Posture/Palpation/Skin Start: 09/02/20 10:31 Freq: Status: Active Protocol: Document 09/02/20 10:30 [facility] (Rec: 09/02/20 13:22 [facility] [id number]) Posture Evaluation Comments Posture Comments scoliosis with convexity to the left, pt is shifted and sidebent left Palpation Assessment Location left foot 4th and 5th extensor tendon Palpation Details tightness of the extensor tendon on the left foot especially the 4th and 5th toes. Pt does have a history of a fusion for her great toe but it is in a valgus position again. piriformis Palpation Location left piriformis Palpation Details tightness and guarding quadratus lumborum Palpation Location left quadratus lumborum Palpation Details tightness and guarding left thoracic and lumbar paraspinals Palpation Location left thoracic and lumbar paraspinals Palpation Details tightness and guarding of the left thoracic and lumbar paraspinals PT-OP-K Range of Motion Start: 09/02/20 10:31 Freq: Status: Active Protocol: Document 09/02/20 10:30 [facility] (Rec: 09/02/20 13:22 [facility] [id number]) Lumbar Spine Range of Motion Lumbar Spine Active Flexion 60 Lateral Flexion Left 10 Lateral Flexion Right 5 Comments decreased sidebending to the right, decreased lumbar flexion ROM PT-OP-Q Treatments Start: 09/02/20 10:31 Freq: Status: Active Protocol: Document 02/24/21 10:30 [facility] (Rec: 02/24/21 13:39 [facility] [id number]) Therapeutic Exercises Supine Exercises hamstring stretch with strap Reps/Minutes hold 1-2 min Other Exercises iliopsoas stretch Reps/Minutes hold 30-60 seconds Manual Therapy Treatment Soft Tissue Mobilization pecminor manual release Body Location right pec minor manual release Comments good tolerance piriformis release Body Location bilateral piriformis Body Position Prone left thoracic and lumbar paraspinals Mobilization Type Myofascial Release Intensity/Depth Moderate Body Position Prone Comments prone over body pillow, scoliosis with convexity to the left PT-OP-R Modalities Start: 10/15/20 17:00 Freq: Status: Active Protocol: Document 10/15/20 13:00 [facility] (Rec: 10/15/20 17:04 [facility] [id number]) Ultrasound Therapy Treatment right upper trapexius Patient Position Sidelying Coupling Medium Ultrasound Gel Applicator Size (cm2) 5 Mode Setting Continuous Duty Cycle 100% Intensity Setting (w/cm2) 1.5 PT-OP-T Assessment and Plan Start: 09/02/20 10:31 Freq: Status: Active Protocol: Document 02/24/21 10:30 [facility] (Rec: 02/24/21 13:38 [facility] [id number]) Physical Therapy Assessment Goals osteopenia and pt lacks a weight training program Air Pollution Inspector Goal (LTG) Yaritza Neff is independent with a HEP for weight bearing exercises and gym exercises to help with improved muscle strength and bone mass. PT has been working with her weights and resistant bands at home. She has not yet started at the pool gym with the weights yet. GOAL MET LTG Duration 8 weeks pain increases with standing Air Pollution Inspector Goal (LTG) pts standing tolerance has increased to 2 hours Good progress LTG Duration 8 weeks Muscle guarding and spasm of the left thoracic and lumbar paraspinals Short Term Goal (STG) Reduce muscle guarding and spasm of the thoracic and lumbar paraspinals good progress STG Duration 6 weeks thoracic and low back pain Care Home Goal (LTG) Yaritza Neff reports a reduction in pain of the left thoracic and low back region, pain levels drop to 1/10 good progress LTG Duration 8 weeks Progress Towards Goals Progress Towards Goals Progressing Toward Goals Assessment Summary Assessment Yaritza neff had injured her right foot stepping up the steep steps at her daughters house. This may have placed extra strain on her sacrum and pelvis as she was tight and sore here today. She plans on returning to the pool for mobility. Pt did have relief today following treatment Physical Therapy Plan Frequency and Duration Frequency of Treatment 1x/Week Duration of Treatment 8 Plan of Care Start Date 02/24/21 Plan of Care End Date 04/23/21 Therapeutic Interventions Therapeutic Interventions Home Exercise Program, Lymphedema Management, Neuromuscular Re-education, Self-Care/Home Management,Soft Tissue Mobilization, Therapeutic Exercises Next Visit Focus/Plan Next Note Type Treatment Note Next Visit Plan reassess gait next visit, review stabilization exercises
--- NOTE | 2021-02-24 13:41 | PT.OPPOC ---
Physical, Occupational & Speech Therapy At [facility] Current Diagnoses Scoliosis, unspecified (02/24/21) Dorsalgia, unspecified (02/24/21) Visit Care Team Role Provider Type Lan Gomes MD Attending Provider Physician Primary Care Provider Referring Provider Specialty: Family Practice Address: [address] [place] [address], [id number] Email: [email or web address] Plan Of Care PT-OP-T Assessment and Plan Start: 09/02/20 10:31 Freq: Status: Active Protocol: Document 02/24/21 10:30 [facility] (Rec: 02/24/21 13:38 [facility] [id number]) Physical Therapy Assessment Goals osteopenia and pt lacks a weight training program Acid Bleacher Goal (LTG) Yaritza Neff is independent with a HEP for weight bearing exercises and gym exercises to help with improved muscle strength and bone mass. PT has been working with her weights and resistant bands at home. She has not yet started at the pool gym with the weights yet. GOAL MET LTG Duration 8 weeks pain increases with standing Acid Bleacher Goal (LTG) pts standing tolerance has increased to 2 hours Good progress LTG Duration 8 weeks Muscle guarding and spasm of the left thoracic and lumbar paraspinals Short Term Goal (STG) Reduce muscle guarding and spasm of the thoracic and lumbar paraspinals good progress STG Duration 6 weeks thoracic and low back pain Fpc Goal (LTG) Yaritza Neff reports a reduction in pain of the left thoracic and low back region, pain levels drop to 1/10 good progress LTG Duration 8 weeks Progress Towards Goals Progress Towards Goals Progressing Toward Goals Assessment Summary Assessment Yaritza neff had injured her right foot stepping up the steep steps at her daughters house. This may have placed extra strain on her sacrum and pelvis as she was tight and sore here today. She plans on returning to the pool for mobility. Pt did have relief today following treatment Physical Therapy Plan Frequency and Duration Frequency of Treatment 1x/Week Duration of Treatment 8 Plan of Care Start Date 02/24/21 Plan of Care End Date 04/23/21 Therapeutic Interventions Therapeutic Interventions Home Exercise Program, Lymphedema Management, Neuromuscular Re-education, Self-Care/Home Management,Soft Tissue Mobilization, Therapeutic Exercises Next Visit Focus/Plan Next Note Type Treatment Note Next Visit Plan reassess gait next visit, review stabilization exercises Plan of Care Dates Plan of Care Start Date 02/24/21 Plan of Care End Date 04/23/21 Electronically Signed by: Danya Blanco, PT 02/24/21 0410 Please Sign and Return: I have reviewed this Plan of Care and certify that the skilled therapy services above are required to meet the patient?s needs. Physician Signature Date Printed Name and Credentials Clinical Instructor Signature Printed Name and Credentials
--- NOTE | 2021-03-10 13:58 | PT.OTN ---
Current Diagnoses Scoliosis, unspecified (03/10/21) Dorsalgia, unspecified (03/10/21) Physical Therapy Treatment Note PT-OP-A Visit Information Start: 09/02/20 10:31 Freq: Status: Active Protocol: Document 03/10/21 11:15 [facility] (Rec: 03/10/21 11:30 [facility] [id number]) Out-Patient Physical Therapy Visit Information Visit Information Visit Type Treatment Note Visit Start Time 11:15 Visit Stop Time 12:00 Total Visit Minutes 45 Visit Number 21 PT-OP-B Current Condition Start: 09/02/20 10:31 Freq: Status: Active Protocol: Document 09/02/20 10:30 [facility] (Rec: 09/02/20 11:20 [facility] [id number]) Current Condition History of Current Condition Onset Date pt experienced a recentl flare up of symptoms Current Complaints thoracic and low back pain, left foot pain with walking History of Current Condition pt would like to strengthen for osteopenia an has questions regarding the exercises at the pool. She has questions on the leg press and hip abduction machines. She describes left sided rib cage tightness and wraps around to the front of her pelvis. She feels a pull on the lateral side of her foot. Current Functional Impairments (Reported) Functional Limitations- ADL's pain prevents Yaritza Neff from lifting anything heavy, pt can stand as long as she wants but it increaases her pain PT-OP-C Subjective Start: 09/02/20 10:31 Freq: Status: Active Protocol: Document 03/10/21 11:15 [facility] (Rec: 03/10/21 11:30 [facility] [id number]) OP-PT Subjective Patient Comments Patient Comments pt has new shoes, she has been trying to work on foot circles, right shoulder still a little tight. PT-OP-F Manual Assessment Start: 09/02/20 10:31 Freq: Status: Active Protocol: Document 09/02/20 10:30 [facility] (Rec: 09/02/20 13:22 [facility] [id number]) Manual Assessments Soft Tissue Assessment Soft Tissue Mobility Assessment tightness in the piriformis muscle left greater than right , tightness Left ITB tightness of the lumbar and thoracic paraspinals left greater than right Joint Mobility Assessment Joint Mobility Assessment hypomobility of the thoracic spine with PA ken PT-OP-J Posture/Palpation/Skin Start: 09/02/20 10:31 Freq: Status: Active Protocol: Document 09/02/20 10:30 [facility] (Rec: 09/02/20 13:22 [facility] [id number]) Posture Evaluation Comments Posture Comments scoliosis with convexity to the left, pt is shifted and sidebent left Palpation Assessment Location left foot 4th and 5th extensor tendon Palpation Details tightness of the extensor tendon on the left foot especially the 4th and 5th toes. Pt does have a history of a fusion for her great toe but it is in a valgus position again. piriformis Palpation Location left piriformis Palpation Details tightness and guarding quadratus lumborum Palpation Location left quadratus lumborum Palpation Details tightness and guarding left thoracic and lumbar paraspinals Palpation Location left thoracic and lumbar paraspinals Palpation Details tightness and guarding of the left thoracic and lumbar paraspinals PT-OP-K Range of Motion Start: 09/02/20 10:31 Freq: Status: Active Protocol: Document 09/02/20 10:30 [facility] (Rec: 09/02/20 13:22 [facility] [id number]) Lumbar Spine Range of Motion Lumbar Spine Active Flexion 60 Lateral Flexion Left 10 Lateral Flexion Right 5 Comments decreased sidebending to the right, decreased lumbar flexion ROM PT-OP-Q Treatments Start: 09/02/20 10:31 Freq: Status: Active Protocol: Document 03/10/21 11:15 [facility] (Rec: 03/11/21 13:57 [facility] [id number]) Manual Therapy Treatment Soft Tissue Mobilization pecminor manual release Body Location right pec minor manual release Comments good tolerance left quadratus lumborum release Mobilization Type Myofascial Release Body Position Prone Comments prone on body pillow left thoracic and lumbar paraspinals Mobilization Type Myofascial Release Intensity/Depth Moderate Body Position Prone Comments prone over body pillow, scoliosis with convexity to the left PT-OP-R Modalities Start: 10/15/20 17:00 Freq: Status: Active Protocol: Document 10/15/20 13:00 [facility] (Rec: 10/15/20 17:04 [facility] [id number]) Ultrasound Therapy Treatment right upper trapexius Patient Position Sidelying Coupling Medium Ultrasound Gel Applicator Size (cm2) 5 Mode Setting Continuous Duty Cycle 100% Intensity Setting (w/cm2) 1.5 PT-OP-T Assessment and Plan Start: 09/02/20 10:31 Freq: Status: Active Protocol: Document 03/10/21 11:15 [facility] (Rec: 03/11/21 13:57 [facility] [id number]) Physical Therapy Assessment Assessment Summary Assessment Yaritza neff is doing better overall with her foot and no longer feels like she is limping. She has been able to return to the pool for her postural exercises Physical Therapy Plan Frequency and Duration Frequency of Treatment 1x/Week Duration of Treatment 8 Plan of Care Start Date 02/24/21 Plan of Care End Date 04/23/21 Therapeutic Interventions Therapeutic Interventions Home Exercise Program, Lymphedema Management, Neuromuscular Re-education, Self-Care/Home Management,Soft Tissue Mobilization, Therapeutic Exercises Next Visit Focus/Plan Next Note Type Treatment Note Next Visit Plan continue progressing postural stabilization exercises, MFR for the thoracic and lumbar paraspinals
--- NOTE | 2021-03-17 13:53 | PT.OTN ---
Current Diagnoses Scoliosis, unspecified (03/17/21) Dorsalgia, unspecified (03/17/21) Physical Therapy Treatment Note PT-OP-A Visit Information Start: 09/02/20 10:31 Freq: Status: Active Protocol: Document 03/17/21 12:55 [facility] (Rec: 03/17/21 13:53 [facility] [id number]) Out-Patient Physical Therapy Visit Information Visit Information Visit Type Treatment Note Visit Start Time 12:45 Visit Stop Time 13:30 Total Visit Minutes 45 Visit Number 22 PT-OP-B Current Condition Start: 09/02/20 10:31 Freq: Status: Active Protocol: Document 09/02/20 10:30 [facility] (Rec: 09/02/20 11:20 [facility] [id number]) Current Condition History of Current Condition Onset Date pt experienced a recentl flare up of symptoms Current Complaints thoracic and low back pain, left foot pain with walking History of Current Condition pt would like to strengthen for osteopenia an has questions regarding the exercises at the pool. She has questions on the leg press and hip abduction machines. She describes left sided rib cage tightness and wraps around to the front of her pelvis. She feels a pull on the lateral side of her foot. Current Functional Impairments (Reported) Functional Limitations- ADL's pain prevents Yaritza Neff from lifting anything heavy, pt can stand as long as she wants but it increaases her pain PT-OP-C Subjective Start: 09/02/20 10:31 Freq: Status: Active Protocol: Document 03/17/21 12:55 [facility] (Rec: 03/17/21 13:53 [facility] [id number]) OP-PT Subjective Patient Comments Patient Comments pt notes with her tennis shoes she will feel lateral foot pulling type pain. She is not tiffanie if it is from her shoes or just tightness PT-OP-F Manual Assessment Start: 09/02/20 10:31 Freq: Status: Active Protocol: Document 09/02/20 10:30 [facility] (Rec: 09/02/20 13:22 [facility] [id number]) Manual Assessments Soft Tissue Assessment Soft Tissue Mobility Assessment tightness in the piriformis muscle left greater than right , tightness Left ITB tightness of the lumbar and thoracic paraspinals left greater than right Joint Mobility Assessment Joint Mobility Assessment hypomobility of the thoracic spine with PA glides PT-OP-J Posture/Palpation/Skin Start: 09/02/20 10:31 Freq: Status: Active Protocol: Document 09/02/20 10:30 [facility] (Rec: 09/02/20 13:22 [facility] [id number]) Posture Evaluation Comments Posture Comments scoliosis with convexity to the left, pt is shifted and sidebent left Palpation Assessment Location left foot 4th and 5th extensor tendon Palpation Details tightness of the extensor tendon on the left foot especially the 4th and 5th toes. Pt does have a history of a fusion for her great toe but it is in a valgus position again. piriformis Palpation Location left piriformis Palpation Details tightness and guarding quadratus lumborum Palpation Location left quadratus lumborum Palpation Details tightness and guarding left thoracic and lumbar paraspinals Palpation Location left thoracic and lumbar paraspinals Palpation Details tightness and guarding of the left thoracic and lumbar paraspinals PT-OP-K Range of Motion Start: 09/02/20 10:31 Freq: Status: Active Protocol: Document 09/02/20 10:30 [facility] (Rec: 09/02/20 13:22 [facility] [id number]) Lumbar Spine Range of Motion Lumbar Spine Active Flexion 60 Lateral Flexion Left 10 Lateral Flexion Right 5 Comments decreased sidebending to the right, decreased lumbar flexion ROM PT-OP-Q Treatments Start: 09/02/20 10:31 Freq: Status: Active Protocol: Document 03/17/21 12:55 [facility] (Rec: 03/17/21 13:53 [facility] [id number]) Therapeutic Exercises Supine Exercises hip Roll outs with band Reps/Minutes x [address] ankle exercise Reps/Minutes x 20 reps hamstring stretch with strap Reps/Minutes hold 1-2 min ITB stretch with strap Reps/Minutes hold 1-2 min Comments added ankle pumps to help stretch out her ankle Manual Therapy Treatment Soft Tissue Mobilization piriformis release Body Location bilateral piriformis Body Position Prone left quadratus lumborum release Mobilization Type Myofascial Release Body Position Prone Comments prone on body pillow left thoracic and lumbar paraspinals Mobilization Type Myofascial Release Intensity/Depth Moderate Body Position Prone Comments prone over body pillow, scoliosis with convexity to the left PT-OP-R Modalities Start: 10/15/20 17:00 Freq: Status: Active Protocol: Document 10/15/20 13:00 [facility] (Rec: 10/15/20 17:04 [facility] [id number]) Ultrasound Therapy Treatment right upper trapexius Patient Position Sidelying Coupling Medium Ultrasound Gel Applicator Size (cm2) 5 Mode Setting Continuous Duty Cycle 100% Intensity Setting (w/cm2) 1.5 PT-OP-T Assessment and Plan Start: 09/02/20 10:31 Freq: Status: Active Protocol: Document 03/17/21 12:55 [facility] (Rec: 03/17/21 13:53 [facility] [id number]) Physical Therapy Assessment Assessment Summary Assessment Yaritza neff had tightness in her peroneal muscles on the left lower leg today. She was shown how to stretch these out and to add the stretch to her ITB stretch. Physical Therapy Plan Frequency and Duration Frequency of Treatment 1x/Week Duration of Treatment 8 Plan of Care Start Date 02/24/21 Plan of Care End Date 04/23/21 Therapeutic Interventions Therapeutic Interventions Home Exercise Program, Lymphedema Management, Neuromuscular Re-education, Self-Care/Home Management,Soft Tissue Mobilization, Therapeutic Exercises Next Visit Focus/Plan Next Note Type Treatment Note Next Visit Plan continue progressing postural stabilization exercises, MFR for the thoracic and lumbar paraspinals
--- NOTE | 2021-03-24 14:27 | PT.OTN ---
Current Diagnoses Scoliosis, unspecified (03/31/21) Dorsalgia, unspecified (03/31/21) Physical Therapy Treatment Note PT-OP-A Visit Information Start: 09/02/20 10:31 Freq: Status: Active Protocol: Document 03/24/21 12:56 [facility] (Rec: 03/24/21 13:49 [facility] [id number]) Out-Patient Physical Therapy Visit Information Visit Information Visit Type Treatment Note Visit Start Time 12:45 Visit Stop Time 13:30 Total Visit Minutes 45 Visit Number 23 PT-OP-B Current Condition Start: 09/02/20 10:31 Freq: Status: Active Protocol: Document 09/02/20 10:30 [facility] (Rec: 09/02/20 11:20 [facility] [id number]) Current Condition History of Current Condition Onset Date pt experienced a recentl flare up of symptoms Current Complaints thoracic and low back pain, left foot pain with walking History of Current Condition pt would like to strengthen for osteopenia an has questions regarding the exercises at the pool. She has questions on the leg press and hip abduction machines. She describes left sided rib cage tightness and wraps around to the front of her pelvis. She feels a pull on the lateral side of her foot. Current Functional Impairments (Reported) Functional Limitations- ADL's pain prevents Yaritza Neff from lifting anything heavy, pt can stand as long as she wants but it increaases her pain PT-OP-C Subjective Start: 09/02/20 10:31 Freq: Status: Active Protocol: Document 03/24/21 12:56 [facility] (Rec: 03/24/21 13:49 [facility] [id number]) OP-PT Subjective Patient Comments Patient Comments pt reports her right Sacrum tends to get sore with the bilateral hip roll outs with theraband PT-OP-F Manual Assessment Start: 09/02/20 10:31 Freq: Status: Active Protocol: Document 09/02/20 10:30 [facility] (Rec: 09/02/20 13:22 [facility] [id number]) Manual Assessments Soft Tissue Assessment Soft Tissue Mobility Assessment tightness in the piriformis muscle left greater than right , tightness Left ITB tightness of the lumbar and thoracic paraspinals left greater than right Joint Mobility Assessment Joint Mobility Assessment hypomobility of the thoracic spine with PA ken PT-OP-J Posture/Palpation/Skin Start: 09/02/20 10:31 Freq: Status: Active Protocol: Document 09/02/20 10:30 [facility] (Rec: 09/02/20 13:22 [facility] [id number]) Posture Evaluation Comments Posture Comments scoliosis with convexity to the left, pt is shifted and sidebent left Palpation Assessment Location left foot 4th and 5th extensor tendon Palpation Details tightness of the extensor tendon on the left foot especially the 4th and 5th toes. Pt does have a history of a fusion for her great toe but it is in a valgus position again. piriformis Palpation Location left piriformis Palpation Details tightness and guarding quadratus lumborum Palpation Location left quadratus lumborum Palpation Details tightness and guarding left thoracic and lumbar paraspinals Palpation Location left thoracic and lumbar paraspinals Palpation Details tightness and guarding of the left thoracic and lumbar paraspinals PT-OP-K Range of Motion Start: 09/02/20 10:31 Freq: Status: Active Protocol: Document 09/02/20 10:30 [facility] (Rec: 09/02/20 13:22 [facility] [id number]) Lumbar Spine Range of Motion Lumbar Spine Active Flexion 60 Lateral Flexion Left 10 Lateral Flexion Right 5 Comments decreased sidebending to the right, decreased lumbar flexion ROM PT-OP-Q Treatments Start: 09/02/20 10:31 Freq: Status: Active Protocol: Document 03/24/21 12:45 [facility] (Rec: 03/31/21 12:13 [facility] [id number]) Gym Equipment Shuttle Recovery Bilateral Squats Details bilateral squats Resistance 50# Reps/Time x 15 reps Therapeutic Exercises Supine Exercises hip Roll outs with band Reps/Minutes x [address] ankle exercise Reps/Minutes x 20 reps hamstring stretch with strap Reps/Minutes hold 1-2 min ITB stretch with strap Reps/Minutes hold 1-2 min Comments added ankle pumps to help stretch out her ankle Prone Exercises prone quad stretch Reps/Minutes hold 1-2 min Standing Exercises standing shoulder extension Reps/Minutes 3 x 10 reps standing rows Reps/Minutes 3 x 10 reps with level 2 standing shoulder ER Reps/Minutes 3 x 10 reps with level 2 Other Exercises iliopsoas stretch Reps/Minutes hold 30-60 seconds prone quad stretch Reps/Minutes hold 1-2 minutes Manual Therapy Treatment Soft Tissue Mobilization ITB release and quad release Body Location ITB and quad release Mobilization Type Manual Lymphatic Drainage Comments tightness left lateral quad and ITB pecminor manual release Body Location right pec minor manual release Comments good tolerance sidelying scapular mobilizations Body Position Sidelying Comments with manual pec minor stretch manual cervical traction Mobilization Type Other Comments good tolerance for manual cervical traction suboccipital release Mobilization Type Myofascial Release,Sustained Pressure Body Position Supine piriformis release Body Location bilateral piriformis Body Position Prone left quadratus lumborum release Mobilization Type Myofascial Release Body Position Prone Comments prone on body pillow left thoracic and lumbar paraspinals Mobilization Type Myofascial Release Intensity/Depth Moderate Body Position Prone Comments prone over body pillow, scoliosis with convexity to the left upper trapezius release Body Location upper trapezius release Mobilization Type Myofascial Release Body Position Supine SCM release Body Location Right SCM release Mobilization Type Myofascial Release 5 Body Location left ITB and TFL release Comments in supine 4 Mobilization Type Myofascial Release 3 Body Location Bilateral piriformis release Comments right sided piriformis tightness today 2 Body Location lumbar spine paraspinal release Body Position Prone Comments worked on releasing the left side of the lumbar paraspinals and Quadratus lumborum 1 Body Location thoracic paraspinal MFR Body Position Supine Comments scalene and upper trapezius stretching Joint Mobilizations 3 Joint thoracic spine mobilzations in prone Comments grade II for improved thoracic extension 2 Joint PA mobilization thoracic spine T5-10 Direction PA Grade II Body Position Prone 1 Joint MET for C 1 Comments mulligan atlas wiggle and pt taught MET for home with gentle resistance through cervical sidebends Manual Traction Cervical Details manual cervical traction Comments supine Manual Techniques manual down glide of the left ilium Body Position Sidelying Comments pt right sidelying, down glide applied to the iliac crest sidelying quad stretch left Reps/Duration 2 min hold cervical scalene stretches B Type cervical scalene stretches B Reps/Duration 30 sec hold for anterior, middle, postierior 2 Type supine cervical spine manual stretches 1 Type manual ITB stretch Reps/Duration x 2 min Self-Care/Home Management Treatment Education Patient Education Home Exercise Program Other Education pt educated in wearing compression stockings when flying, legs up the wall decompression exercise and dry brushing PT-OP-R Modalities Start: 10/15/20 17:00 Freq: Status: Active Protocol: Document 10/15/20 13:00 [facility] (Rec: 10/15/20 17:04 [facility] [id number]) Ultrasound Therapy Treatment right upper trapexius Patient Position Sidelying Coupling Medium Ultrasound Gel Applicator Size (cm2) 5 Mode Setting Continuous Duty Cycle 100% Intensity Setting (w/cm2) 1.5 PT-OP-T Assessment and Plan Start: 09/02/20 10:31 Freq: Status: Active Protocol: Document 03/24/21 12:45 [facility] (Rec: 03/31/21 12:13 [facility] [id number]) Physical Therapy Assessment Rehab Potential Rehabilitation Potential Good Evaluation Complexity Number of Personal Factors/Comorbidities 0 Number of Body Systems Impaired 1-2 Clinical Presentation at Evaluation Stable Impairments Impairments Activity Tolerance,Functional Activities,Pain,Posture,ROM, Soft Tissue Mobility,Strength Goals osteopenia and pt lacks a weight training program 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 PT has been working with her weights and resistant bands at home. She has not yet started at the pool gym with the weights yet. 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) pts standing tolerance has increased to 2 hours Good progress LTG Duration 8 weeks Muscle guarding and spasm of the left thoracic and lumbar paraspinals Short Term Goal (STG) Reduce muscle guarding and spasm of the thoracic and lumbar paraspinals good progress STG Duration 6 weeks thoracic and low back pain Prison Goal (LTG) Yaritza Neff reports a reduction in pain of the left thoracic and low back region, pain levels drop to 1/10 good progress LTG Duration 8 weeks Progress Towards Goals Progress Towards Goals Progressing Toward Goals Assessment Summary Assessment Yaritza neff had tightness in her peroneal muscles on the left lower leg today. She was shown how to stretch these out and to add the stretch to her ITB stretch. Physical Therapy Plan Frequency and Duration Frequency of Treatment 1x/Week Duration of Treatment 8 Plan of Care Start Date 02/24/21 Plan of Care End Date 04/23/21 Therapeutic Interventions Therapeutic Interventions Home Exercise Program, Lymphedema Management, Neuromuscular Re-education, Self-Care/Home Management,Soft Tissue Mobilization, Therapeutic Exercises Next Visit Focus/Plan Next Note Type Treatment Note Next Visit Plan continue progressing postural stabilization exercises, MFR for the thoracic and lumbar paraspinals
--- NOTE | 2021-03-31 14:33 | PT.OTN ---
Current Diagnoses Scoliosis, unspecified (03/31/21) Dorsalgia, unspecified (03/31/21) Physical Therapy Treatment Note PT-OP-A Visit Information Start: 09/02/20 10:31 Freq: Status: Active Protocol: Document 03/31/21 12:00 [facility] (Rec: 03/31/21 14:33 [facility] [id number]) Out-Patient Physical Therapy Visit Information Visit Information Visit Type Treatment Note Visit Start Time 12:00 Visit Stop Time 12:45 Total Visit Minutes 45 Visit Number 24 PT-OP-B Current Condition Start: 09/02/20 10:31 Freq: Status: Active Protocol: Document 09/02/20 10:30 [facility] (Rec: 09/02/20 11:20 [facility] [id number]) Current Condition History of Current Condition Onset Date pt experienced a recentl flare up of symptoms Current Complaints thoracic and low back pain, left foot pain with walking History of Current Condition pt would like to strengthen for osteopenia an has questions regarding the exercises at the pool. She has questions on the leg press and hip abduction machines. She describes left sided rib cage tightness and wraps around to the front of her pelvis. She feels a pull on the lateral side of her foot. Current Functional Impairments (Reported) Functional Limitations- ADL's pain prevents Yaritza Neff from lifting anything heavy, pt can stand as long as she wants but it increaases her pain PT-OP-C Subjective Start: 09/02/20 10:31 Freq: Status: Active Protocol: Document 03/31/21 12:00 [facility] (Rec: 03/31/21 14:33 [facility] [id number]) OP-PT Subjective Patient Comments Patient Comments pt reports she is feeling better with her hip roll out exercises, still tight in her right sacrum. She has questions regarding weight lifting exercises for her hips to help with the osteopenia PT-OP-F Manual Assessment Start: 09/02/20 10:31 Freq: Status: Active Protocol: Document 09/02/20 10:30 [facility] (Rec: 09/02/20 13:22 [facility] [id number]) Manual Assessments Soft Tissue Assessment Soft Tissue Mobility Assessment tightness in the piriformis muscle left greater than right , tightness Left ITB tightness of the lumbar and thoracic paraspinals left greater than right Joint Mobility Assessment Joint Mobility Assessment hypomobility of the thoracic spine with PA glides PT-OP-J Posture/Palpation/Skin Start: 09/02/20 10:31 Freq: Status: Active Protocol: Document 09/02/20 10:30 [facility] (Rec: 09/02/20 13:22 [facility] [id number]) Posture Evaluation Comments Posture Comments scoliosis with convexity to the left, pt is shifted and sidebent left Palpation Assessment Location left foot 4th and 5th extensor tendon Palpation Details tightness of the extensor tendon on the left foot especially the 4th and 5th toes. Pt does have a history of a fusion for her great toe but it is in a valgus position again. piriformis Palpation Location left piriformis Palpation Details tightness and guarding quadratus lumborum Palpation Location left quadratus lumborum Palpation Details tightness and guarding left thoracic and lumbar paraspinals Palpation Location left thoracic and lumbar paraspinals Palpation Details tightness and guarding of the left thoracic and lumbar paraspinals PT-OP-K Range of Motion Start: 09/02/20 10:31 Freq: Status: Active Protocol: Document 09/02/20 10:30 [facility] (Rec: 09/02/20 13:22 [facility] [id number]) Lumbar Spine Range of Motion Lumbar Spine Active Flexion 60 Lateral Flexion Left 10 Lateral Flexion Right 5 Comments decreased sidebending to the right, decreased lumbar flexion ROM PT-OP-Q Treatments Start: 09/02/20 10:31 Freq: Status: Active Protocol: Document 03/31/21 12:00 [facility] (Rec: 03/31/21 14:33 [facility] [id number]) Therapeutic Exercises Standing Exercises standing squats Reps/Minutes X 10 for HEP standing rows Reps/Minutes REVIEWED FOR HEP standing shoulder ER Reps/Minutes REVIEWED FOR HEP PT-OP-R Modalities Start: 10/15/20 17:00 Freq: Status: Active Protocol: Document 10/15/20 13:00 [facility] (Rec: 10/15/20 17:04 [facility] [id number]) Ultrasound Therapy Treatment right upper trapexius Patient Position Sidelying Coupling Medium Ultrasound Gel Applicator Size (cm2) 5 Mode Setting Continuous Duty Cycle 100% Intensity Setting (w/cm2) 1.5 PT-OP-T Assessment and Plan Start: 09/02/20 10:31 Freq: Status: Active Protocol: Document 03/31/21 12:00 [facility] (Rec: 03/31/21 14:33 [facility] [id number]) Physical Therapy Assessment Assessment Summary Assessment Reviewed strengthening exercises for Yaritza Neff, she is feeling the pool gym is too expensive for her now so hasn' t been doing the weight training there. Physical Therapy Plan Frequency and Duration Frequency of Treatment 1x/Week Duration of Treatment 8 Plan of Care Start Date 02/24/21 Plan of Care End Date 04/23/21 Therapeutic Interventions Therapeutic Interventions Home Exercise Program, Lymphedema Management, Neuromuscular Re-education, Self-Care/Home Management,Soft Tissue Mobilization, Therapeutic Exercises Next Visit Focus/Plan Next Note Type Treatment Note Next Visit Plan continue progressing postural stabilization exercises, MFR for the thoracic and lumbar paraspinals
--- NOTE | 2021-04-07 13:31 | PT.OTN ---
Current Diagnoses Scoliosis, unspecified (04/07/21) Dorsalgia, unspecified (04/07/21) Physical Therapy Treatment Note PT-OP-A Visit Information Start: 09/02/20 10:31 Freq: Status: Active Protocol: Document 04/07/21 09:40 [facility] (Rec: 04/07/21 09:47 [facility] [id number]) Out-Patient Physical Therapy Visit Information Visit Information Visit Type Treatment Note Visit Start Time 09:45 Visit Stop Time 10:30 Total Visit Minutes 45 Visit Number 25 PT-OP-B Current Condition Start: 09/02/20 10:31 Freq: Status: Active Protocol: Document 09/02/20 10:30 [facility] (Rec: 09/02/20 11:20 [facility] [id number]) Current Condition History of Current Condition Onset Date pt experienced a recentl flare up of symptoms Current Complaints thoracic and low back pain, left foot pain with walking History of Current Condition pt would like to strengthen for osteopenia an has questions regarding the exercises at the pool. She has questions on the leg press and hip abduction machines. She describes left sided rib cage tightness and wraps around to the front of her pelvis. She feels a pull on the lateral side of her foot. Current Functional Impairments (Reported) Functional Limitations- ADL's pain prevents Yaritza Neff from lifting anything heavy, pt can stand as long as she wants but it increaases her pain PT-OP-C Subjective Start: 09/02/20 10:31 Freq: Status: Active Protocol: Document 04/07/21 09:40 [facility] (Rec: 04/07/21 10:33 [facility] [id number]) OP-PT Subjective Patient Comments Patient Comments pt reports she is feeling the right sided sacral discomfort and tightenss down the right leg PT-OP-F Manual Assessment Start: 09/02/20 10:31 Freq: Status: Active Protocol: Document 09/02/20 10:30 [facility] (Rec: 09/02/20 13:22 [facility] [id number]) Manual Assessments Soft Tissue Assessment Soft Tissue Mobility Assessment tightness in the piriformis muscle left greater than right , tightness Left ITB tightness of the lumbar and thoracic paraspinals left greater than right Joint Mobility Assessment Joint Mobility Assessment hypomobility of the thoracic spine with PA glides PT-OP-J Posture/Palpation/Skin Start: 07/14/21 10:31 Freq: Status: Active Protocol: Document 09/02/20 10:30 [facility] (Rec: 09/02/20 13:22 [facility] [id number]) Posture Evaluation Comments Posture Comments scoliosis with convexity to the left, pt is shifted and sidebent left Palpation Assessment Location left foot 4th and 5th extensor tendon Palpation Details tightness of the extensor tendon on the left foot especially the 4th and 5th toes. Pt does have a history of a fusion for her great toe but it is in a valgus position again. piriformis Palpation Location left piriformis Palpation Details tightness and guarding quadratus lumborum Palpation Location left quadratus lumborum Palpation Details tightness and guarding left thoracic and lumbar paraspinals Palpation Location left thoracic and lumbar paraspinals Palpation Details tightness and guarding of the left thoracic and lumbar paraspinals PT-OP-K Range of Motion Start: 09/02/20 10:31 Freq: Status: Active Protocol: Document 09/02/20 10:30 [facility] (Rec: 09/02/20 13:22 [facility] [id number]) Lumbar Spine Range of Motion Lumbar Spine Active Flexion 60 Lateral Flexion Left 10 Lateral Flexion Right 5 Comments decreased sidebending to the right, decreased lumbar flexion ROM PT-OP-Q Treatments Start: 09/02/20 10:31 Freq: Status: Active Protocol: Document 04/07/21 09:40 [facility] (Rec: 04/07/21 13:31 [facility] [id number]) Therapeutic Exercises Supine Exercises ITB stretch with strap Reps/Minutes hold 1-2 min Comments added ankle pumps to help stretch out her ankle Standing Exercises standing calf stretch Reps/Minutes 1-2 min hold B Manual Therapy Treatment Soft Tissue Mobilization piriformis release Body Location bilateral piriformis Body Position Prone left thoracic and lumbar paraspinals Mobilization Type Myofascial Release Intensity/Depth Moderate Body Position Prone Comments prone over body pillow, scoliosis with convexity to the left 3 Body Location Bilateral piriformis release 2 Body Location lumbar spine paraspinal release Body Position Prone Comments worked on releasing the left side of the lumbar paraspinals and Quadratus lumborum PT-OP-R Modalities Start: 10/15/20 17:00 Freq: Status: Active Protocol: Document 10/15/20 13:00 [facility] (Rec: 10/15/20 17:04 [facility] [id number]) Ultrasound Therapy Treatment right upper trapexius Patient Position Sidelying Coupling Medium Ultrasound Gel Applicator Size (cm2) 5 Mode Setting Continuous Duty Cycle 100% Intensity Setting (w/cm2) 1.5 PT-OP-T Assessment and Plan Start: 09/02/20 10:31 Freq: Status: Active Protocol: Document 04/07/21 09:40 [facility] (Rec: 04/07/21 09:47 [facility] [id number]) Physical Therapy Assessment Assessment Summary Assessment worked on adding back in calf stretches for Yaritza Neff to release tension in her lateral calf. Pt is working with a kick board in the pool now which helps her for core stability. Physical Therapy Plan Frequency and Duration Frequency of Treatment 1x/Week Duration of Treatment 8 Plan of Care Start Date 02/24/21 Plan of Care End Date 04/23/21 Therapeutic Interventions Therapeutic Interventions Home Exercise Program, Lymphedema Management, Neuromuscular Re-education, Self-Care/Home Management,Soft Tissue Mobilization, Therapeutic Exercises Next Visit Focus/Plan Next Note Type Treatment Note Next Visit Plan continue progressing postural stabilization exercises, MFR for the thoracic and lumbar paraspinals, review calf stretch
--- NOTE | 2021-04-14 14:02 | PT.OTN ---
Current Diagnoses Scoliosis, unspecified (04/14/21) Dorsalgia, unspecified (04/14/21) Physical Therapy Treatment Note PT-OP-A Visit Information Start: 09/02/20 10:31 Freq: Status: Active Protocol: Document 04/14/21 12:06 REPLACED BY [facility] (Rec: 04/14/21 12:53 REPLACED BY [facility] [id number]) Out-Patient Physical Therapy Visit Information Visit Information Visit Type Treatment Note Visit Start Time 12:00 Visit Stop Time 12:45 Total Visit Minutes 45 Visit Number 26 PT-OP-B Current Condition Start: 09/02/20 10:31 Freq: Status: Active Protocol: Document 09/02/20 10:30 REPLACED BY [facility] (Rec: 09/02/20 11:20 REPLACED BY [facility] [id number]) Current Condition History of Current Condition Onset Date pt experienced a recentl flare up of symptoms Current Complaints thoracic and low back pain, left foot pain with walking History of Current Condition pt would like to strengthen for osteopenia an has questions regarding the exercises at the pool. She has questions on the leg press and hip abduction machines. She describes left sided rib cage tightness and wraps around to the front of her pelvis. She feels a pull on the lateral side of her foot. Current Functional Impairments (Reported) Functional Limitations- ADL's pain prevents Yaritza Neff from lifting anything heavy, pt can stand as long as she wants but it increaases her pain PT-OP-C Subjective Start: 09/02/20 10:31 Freq: Status: Active Protocol: Document 04/14/21 12:06 REPLACED BY [facility] (Rec: 04/14/21 12:53 REPLACED BY [facility] [id number]) OP-PT Subjective Patient Comments Patient Comments pt is feeling good with her home exercise program and is ready to discontinue PT Patient Reported Progress Improving PT-OP-F Manual Assessment Start: 09/02/20 10:31 Freq: Status: Active Protocol: Document 09/02/20 10:30 REPLACED BY [facility] (Rec: 09/02/20 13:22 REPLACED BY [facility] [id number]) Manual Assessments Soft Tissue Assessment Soft Tissue Mobility Assessment tightness in the piriformis muscle left greater than right , tightness Left ITB tightness of the lumbar and thoracic paraspinals left greater than right Joint Mobility Assessment Joint Mobility Assessment hypomobility of the thoracic spine with PA ken PT-OP-J Posture/Palpation/Skin Start: 09/02/20 10:31 Freq: Status: Active Protocol: Document 09/02/20 10:30 REPLACED BY [facility] (Rec: 09/02/20 13:22 REPLACED BY [facility] [id number]) Posture Evaluation Comments Posture Comments scoliosis with convexity to the left, pt is shifted and sidebent left Palpation Assessment Location left foot 4th and 5th extensor tendon Palpation Details tightness of the extensor tendon on the left foot especially the 4th and 5th toes. Pt does have a history of a fusion for her great toe but it is in a valgus position again. piriformis Palpation Location left piriformis Palpation Details tightness and guarding quadratus lumborum Palpation Location left quadratus lumborum Palpation Details tightness and guarding left thoracic and lumbar paraspinals Palpation Location left thoracic and lumbar paraspinals Palpation Details tightness and guarding of the left thoracic and lumbar paraspinals PT-OP-K Range of Motion Start: 09/02/20 10:31 Freq: Status: Active Protocol: Document 09/02/20 10:30 REPLACED BY [facility] (Rec: 09/02/20 13:22 REPLACED BY [facility] [id number]) Lumbar Spine Range of Motion Lumbar Spine Active Flexion 60 Lateral Flexion Left 10 Lateral Flexion Right 5 Comments decreased sidebending to the right, decreased lumbar flexion ROM PT-OP-Q Treatments Start: 09/02/20 10:31 Freq: Status: Active Protocol: Document 04/14/21 12:03 REPLACED BY [facility] (Rec: 04/15/21 14:02 REPLACED BY [facility] [id number]) Manual Therapy Treatment Soft Tissue Mobilization piriformis release Body Location bilateral piriformis Body Position Prone left thoracic and lumbar paraspinals Mobilization Type Myofascial Release Intensity/Depth Moderate Body Position Prone Comments prone over body pillow, scoliosis with convexity to the left 2 Body Location lumbar spine paraspinal release Body Position Prone Comments worked on releasing the left side of the lumbar paraspinals and Quadratus lumborum PT-OP-R Modalities Start: 10/15/20 17:00 Freq: Status: Active Protocol: Document 10/15/20 13:00 REPLACED BY [facility] (Rec: 10/15/20 17:04 REPLACED BY [facility] [id number]) Ultrasound Therapy Treatment right upper trapexius Patient Position Sidelying Coupling Medium Ultrasound Gel Applicator Size (cm2) 5 Mode Setting Continuous Duty Cycle 100% Intensity Setting (w/cm2) 1.5 PT-OP-T Assessment and Plan Start: 09/02/20 10:31 Freq: Status: Active Protocol: Document 04/14/21 12:03 REPLACED BY [facility] (Rec: 04/15/21 14:02 REPLACED BY [facility] [id number]) Physical Therapy Assessment Goals osteopenia and pt lacks a weight training program Health Center Associate Goal (LTG) Yaritza Neff is independent with a HEP for weight bearing exercises and gym exercises to help with improved muscle strength and bone mass. PT has been working with her weights and resistant bands at home. She has not yet started at the pool gym with the weights yet. GOAL MET LTG Duration 8 weeks pain increases with standing [facility] Associate Goal (LTG) pts standing tolerance has increased to 2 hours Good progress LTG Duration 8 weeks Muscle guarding and spasm of the left thoracic and lumbar paraspinals Short Term Goal (STG) Reduce muscle guarding and spasm of the thoracic and lumbar paraspinals good progress STG Duration 6 weeks thoracic and low back pain [facility] Associate Goal (LTG) Yaritza Neff reports a reduction in pain of the left thoracic and low back region, pain levels drop to 1/10 good progress LTG Duration 8 weeks Assessment Summary Assessment Yaritza Neff is feeling independent with her HEP at this time, her pain levels are under control and she is able to continue with the exercise at the pool. She will discontinue PT at this time. Physical Therapy Plan Discharge Physical Therapy Discharge Reasons Patient Request
== END 2021-04-15 15:51 | disposition home or self-care (01) ==
LOC: PHYS 12:00
PROVIDERS: PCP Family Medicine; Referring Provider Family Medicine; Visit Provider Family Medicine
DX: M41.9 Scoliosis, unspecified (principal); M54.9 Dorsalgia, unspecified
CPT/HCPCS: 97035; 97110; 97140; 97161; 97535

== ENCOUNTER → 2021-04-29 16:41 | Outpatient (CLI) | payer MEDICARE, OTHER, SELFPAY ==
[2021-04-29 18:24] LABS: BUN Creatinine Ratio 23.1 (6-22); Blood Urea Nitrogen 21 mg/dL (7-17); Calcium 9.3 mg/dL (8.4-10.2); Carbon Dioxide 30 mmol/L (22-32); Chloride 100 mmol/L (98-107); Estimated Glomerular Filt Rate > 60.0 mL/min (>60); Glucose 107 mg/dL (80-110); HEMOLYSIS < 15 (0-50); Magnesium 2.2 mg/dL (1.6-2.3); Potassium 4.2 mmol/L (3.4-5.1); Sodium 135 mmol/L (137-145)
[2021-04-29 18:59] LABS: Ferritin 18 ng/mL (11-264)
[2021-04-29 19:31] LABS: Folate 6.9 ng/mL (2.76-20.0); Vitamin B12 490 pg/mL (239-931)
== END ==
PROVIDERS: PCP Family Medicine; Referring Provider Family Medicine; Visit Provider Family Medicine
DX: M85.80 Other specified disorders of bone density and structure, unspecified site (principal); D51.9 Vitamin B12 deficiency anemia, unspecified; E55.9 Vitamin D deficiency, unspecified; E03.9 Hypothyroidism, unspecified
CPT/HCPCS: 36415; 80048; 82607; 82728; 82746; 83735

== ENCOUNTER → 2021-06-08 11:54 | Outpatient (CLI) | payer MEDICARE, OTHER, SELFPAY ==
--- NOTE | 2021-06-08 | DI.MG.S_ITS ---
BILATERAL DIGITAL SCREENING MAMMOGRAM 3D/2D WITH CAD: 06/08/2021 CLINICAL: Routine screening. Comparison is made to exams dated: 03/06/2020 mammogram, 02/02/2016 mammogram, and 09/01/2007 mammogram - [facility]. There are scattered fibroglandular elements in both breasts. Current study was also evaluated with a Computer Aided Detection (CAD) system. No significant masses, calcifications, or other findings are seen in either breast. There has been no significant interval change. IMPRESSION: NEGATIVE There is no mammographic evidence of malignancy. A 1 year screening mammogram is recommended. This exam was interpreted at Station ID: [id number]. NOTE: For mammograms, a report in lay terms will be sent to the patient. Approximately 15% of breast malignancies will not be visualized mammographically. In the management of a palpable breast mass, a negative mammogram must not discourage biopsy of a clinically suspicious lesion. Electronically Signed By: Nando jones/eric:06/08/2021 13:30:29 letter sent: Normal Exam ACR BI-RADS Category 1: Negative [id number]
== END ==
PROVIDERS: PCP Family Medicine; Referring Provider Family Medicine; Visit Provider Family Medicine
DX: Z12.31 Encounter for screening mammogram for malignant neoplasm of breast (principal)
CPT/HCPCS: 77063; 77067

== ENCOUNTER → 2021-09-11 09:48 | Outpatient (CLI) | payer MEDICARE, OTHER, SELFPAY ==
[2021-09-11 10:26] LABS: HDL Cholesterol 91 mg/dL (40-60); Triglycerides 77 mg/dL (35-150)
[2021-09-11 10:37] LABS: Cholesterol 376 mg/dL (140-199); LDL Cholesterol Calculated 270 mg/dL (<100)
[2021-09-11 10:58] LABS: TSH w/ Reflex to FT4 0.34 uIU/mL (0.47-4.68)
[2021-09-11 11:19] LABS: Vitamin B12 843 pg/mL (239-931)
[2021-09-13 12:31] LABS: Ferritin 22 ng/mL (11-264)
== END ==
PROVIDERS: Family Provider Family Medicine; PCP Family Medicine; Referring Provider Family Medicine; Visit Provider Family Medicine
DX: E03.9 Hypothyroidism, unspecified (principal); E78.5 Hyperlipidemia, unspecified; D51.9 Vitamin B12 deficiency anemia, unspecified; Z13.1 Encounter for screening for diabetes mellitus; D64.9 Anemia, unspecified
CPT/HCPCS: 36415; 80061; 82607; 82728; 83036; 84439; 84443

== ENCOUNTER 2021-09-29 12:45 | Outpatient (RCR) | payer MEDICARE, OTHER, SELFPAY ==
--- NOTE | 2021-07-28 14:07 | PT.OIE ---
Current Diagnoses Dorsalgia, unspecified (08/04/21) Past Medical History (Last Reviewed 09/27/17 @ 11:46 by Sonal Sanchez LPN) Abnormal Pap smear of cervix (1988) Acquired hypothyroidism (2011) Anemia (1986) Chicken pox (1953) Chronic back pain (1986) Colitis (1971) CTS (carpal tunnel syndrome) (1989) Diverticular disease (2005) Gastroesophageal reflux disease (11/26/10) HPV (human papilloma virus) infection (2007) Hyperlipidemia Lumbar spine pain Measles (1953) Osteopenia (2011) Scoliosis (1986) Past Surgical History (Last Reviewed 09/27/17 @ 11:46 by Sonal Sanchez LPN) Anesthesia History of bilateral salpingo-oophorectomy (BSO) History of left oophorectomy (1988) Status post bunionectomy (2007) Status post bunionectomy (2013) Status post tonsillectomy and adenoidectomy (1953) Visit Care Team Role Provider Type Lan Gomes MD Attending Provider Physician Family Provider Primary Care Provider Referring Provider Specialty: [facility] Address: [address] [place] [address] Email: [email or web address] Physical Therapy Initial Evaluation PT-OP-A Visit Information Start: 07/28/21 12:56 Freq: Status: Active Protocol: Document 07/28/21 12:45 [facility] (Rec: 07/28/21 14:43 [facility] [id number]) Out-Patient Physical Therapy Visit Information Visit Information Visit Type Initial Evaluation Visit Start Time 12:45 Visit Stop Time 13:30 Total Visit Minutes 45 Visit Number 1 PT-OP-B Current Condition Start: 07/28/21 12:56 Freq: Status: Active Protocol: Document 07/28/21 12:45 [facility] (Rec: 08/04/21 14:05 [facility] [id number]) Current Condition History of Current Condition Onset Date x 4 weeks Current Complaints left sided neck pain that radiates to the left shoulder blade, decreased RO History of Current Condition Yaritza Neff reports she went to a concert and after the concert started noticing left sided neck pain that makes it difficulty to turn her head. She has pain with rotation and sidebending. She describes her symptoms primarily as tightness. Yaritza Neff has a history of scoliosis and has been seen on our clinic for spinal pain and for postural exercises previously Treatment Goals Patient/Caregiver Goals goals are to relieve neck pain and improve pain free ROM PT-OP-C Subjective Start: 07/28/21 12:56 Freq: Status: Active Protocol: Document 07/28/21 12:45 [facility] (Rec: 08/04/21 14:05 [facility] [id number]) Patient Questionnaires Oswestry Low Back Index Oswestry Score 6 Oswestry Impairment 1 to 19% Impaired (Score 1-19) PT-OP-F Manual Assessment Start: 07/28/21 12:56 Freq: Status: Active Protocol: Document 07/28/21 12:45 [facility] (Rec: 08/04/21 14:05 [facility] [id number]) Manual Assessments Soft Tissue Assessment Soft Tissue Mobility Assessment tightness in the left greater than right levator scapula, upper trap and scalenes pec minor tightness L>R Joint Mobility Assessment Joint Mobility Assessment hypomobility of the left side of the thoracic spine and with central PA glides T2-T8 Decreased scapular mobility with scapula upward rotation Decreased upper cervical flexion mobility PT-OP-K Range of Motion Start: 08/04/21 14:06 Freq: Status: Active Protocol: Document 07/28/21 12:45 [facility] (Rec: 08/04/21 14:06 [facility] [id number]) Cervical Spine Range of Motion Cervical Spine Active Testing Position Sitting Flexion 60 Extension 20 Rotation Left 20 Rotation Right 20 Lateral Flexion Left 10 Lateral Flexion Right 10 ROM Limitations Soft Tissue Tightness Comments pain on the left side of the levator scapula with cervical sidebending and rotation to the right PT-OP-T Assessment and Plan Start: 07/28/21 12:56 Freq: Status: Active Protocol: Document 07/28/21 12:45 [facility] (Rec: 08/04/21 14:05 [facility] [id number]) Physical Therapy Assessment Rehab Potential Rehabilitation Potential Excellent Evaluation Complexity Number of Personal Factors/Comorbidities 0 Number of Body Systems Impaired 1-2 Clinical Presentation at Evaluation Stable Impairments Other Impairments decreased ROM, pain, stiffness Goals 3 Impairment Decreased scapula thoracic mobility and decreased scapula upward rotation Short Term Goal (STG) Yaritza neff is educated in exercises to promote scapular mobility and help with scapula upward rotation STG Duration 4 weeks 2 Impairment Pec minor tightness L>R with anterior shoulder on the right Retirement Goal (LTG) Yaritza neff has improved mobility of the pec minor on the left and shoulder height is equal bilaterally when laying supine LTG Duration 12 weeks 1 Impairment pain in the left levator scapula with cervical rotation B Online Marketing Strategist Goal (LTG) Yaritza Neff has pain free cervical rotation WFL LTG Duration 12 weeks Assessment Summary Assessment Yaritza Neff presents to Physical therapy today with newer onset of left sided neck pain. She is tender and tight in the levator scapula region along with tightness in her upper trapezius and scalenes. With her scoliosis she tends to be guarded in the left thoracic paraspinals and today she is hypomobile in her T spine as well. Scapular mobility into upward rotation is limited and her pec minor on the left is pulling her left shoulder into a anterior positions. I started her today with manual stretching for the pec minor, levator scapula, and scapular mobilizations which she tolerated well. She is a good candidate for PT Physical Therapy Plan Frequency and Duration Frequency of Treatment 2x/Week Duration of Treatment 12 Plan of Care Start Date 07/28/21 Plan of Care End Date 10/27/21 Therapeutic Interventions Therapeutic Interventions Home Exercise Program,Joint Mobilizations,Lymphedema Management,Neuromuscular Re- education,Patient/Caregiver Education,Soft Tissue Mobilization,Therapeutic Exercises Next Visit Focus/Plan Next Note Type Treatment Note Next Visit Plan work on scapular mobility, levator scapula stretching, upper cervical flexion and suboccipital release, pec minor stretching
--- NOTE | 2021-07-28 14:08 | PT.OPPOC ---
Physical, Occupational & Speech Therapy At [facility] Current Diagnoses Dorsalgia, unspecified (08/04/21) Visit Care Team Role Provider Type Lan Gomes MD Attending Provider Physician Family Provider Primary Care Provider Referring Provider Specialty: Family Practice Address: [address] [place] [address], [id number] Email: [email or web address] Plan Of Care PT-OP-T Assessment and Plan Start: 07/28/21 12:56 Freq: Status: Active Protocol: Document 07/28/21 12:45 [facility] (Rec: 08/04/21 14:05 [facility] [id number]) Physical Therapy Assessment Rehab Potential Rehabilitation Potential Excellent Evaluation Complexity Number of Personal Factors/Comorbidities 0 Number of Body Systems Impaired 1-2 Clinical Presentation at Evaluation Stable Impairments Other Impairments decreased ROM, pain, stiffness Goals 3 Impairment Decreased scapula thoracic mobility and decreased scapula upward rotation Short Term Goal (STG) Yaritza neff is educated in exercises to promote scapular mobility and help with scapula upward rotation STG Duration 4 weeks 2 Impairment Pec minor tightness L>R with anterior shoulder on the right Baseboard Heating Installer Goal (LTG) Yaritza neff has improved mobility of the pec minor on the left and shoulder height is equal bilaterally when laying supine LTG Duration 12 weeks 1 Impairment pain in the left levator scapula with cervical rotation B Senior Living Goal (LTG) Yaritza Neff has pain free cervical rotation WFL LTG Duration 12 weeks Assessment Summary Assessment Yaritza Neff presents to Physical therapy today with newer onset of left sided neck pain. She is tender and tight in the levator scapula region along with tightness in her upper trapezius and scalenes. With her scoliosis she tends to be guarded in the left thoracic paraspinals and today she is hypomobile in her T spine as well. Scapular mobility into upward rotation is limited and her pec minor on the left is pulling her left shoulder into a anterior positions. I started her today with manual stretching for the pec minor, levator scapula, and scapular mobilizations which she tolerated well. She is a good candidate for PT Physical Therapy Plan Frequency and Duration Frequency of Treatment 2x/Week Duration of Treatment 12 Plan of Care Start Date 07/28/21 Plan of Care End Date 10/27/21 Therapeutic Interventions Therapeutic Interventions Home Exercise Program,Joint Mobilizations Neuromuscular Re- education,Patient/Caregiver Education,Soft Tissue Mobilization,Therapeutic Exercises Next Visit Focus/Plan Next Note Type Treatment Note Next Visit Plan work on scapular mobility, levator scapula stretching, upper cervical flexion and suboccipital release, pec minor stretching Plan of Care Dates Plan of Care Start Date 07/28/21 Plan of Care End Date 10/27/21 Electronically Signed by: Danya Blanco, PT 08/04/21 [id number] If you are in agreement with this Plan of Care, please return a signed and dated copy. I have reviewed this Plan of Care and certify that the skilled therapy services above are required to meet the patient?s needs. Physician Signature Date Printed Name and Credentials Clinical Instructor Signature Printed Name and Credentials
--- NOTE | 2021-08-04 14:15 | PT.OTN ---
Current Diagnoses Dorsalgia, unspecified (08/04/21) Physical Therapy Treatment Note PT-OP-A Visit Information Start: 07/28/21 12:56 Freq: Status: Active Protocol: Document 08/04/21 13:55 [facility] (Rec: 08/04/21 14:12 [facility] [id number]) Out-Patient Physical Therapy Visit Information Visit Information Visit Type Treatment Note Visit Start Time 12:55 Visit Stop Time 13:40 Total Visit Minutes 45 Visit Number 2 PT-OP-B Current Condition Start: 07/28/21 12:56 Freq: Status: Active Protocol: Document 07/28/21 12:45 [facility] (Rec: 08/04/21 14:05 [facility] [id number]) Current Condition History of Current Condition Onset Date x 4 weeks Current Complaints left sided neck pain that radiates to the left shoulder blade, decreased RO History of Current Condition Yaritza Neff reports she went to a concert and after the concert started noticing left sided neck pain that makes it difficulty to turn her head. She has pain with rotation and sidebending. She describes her symptoms primarily as tightness. Yaritza Neff has a history of scoliosis and has been seen on our clinic for spinal pain and for postural exercises previously Treatment Goals Patient/Caregiver Goals goals are to relieve neck pain and improve pain free ROM PT-OP-C Subjective Start: 07/28/21 12:56 Freq: Status: Active Protocol: Document 08/04/21 13:55 [facility] (Rec: 08/04/21 14:12 [facility] [id number]) OP-PT Subjective Patient Comments Patient Comments Yaritza Neff reports she feels sore today at the top of her left shoulder blade. PT-OP-F Manual Assessment Start: 07/28/21 12:56 Freq: Status: Active Protocol: Document 07/28/21 12:45 [facility] (Rec: 08/04/21 14:05 [facility] [id number]) Manual Assessments Soft Tissue Assessment Soft Tissue Mobility Assessment tightness in the left greater than right levator scapula, upper trap and scalenes pec minor tightness L>R Joint Mobility Assessment Joint Mobility Assessment hypomobility of the left side of the thoracic spine and with central PA glides T2-T8 Decreased scapular mobility with scapula upward rotation Decreased upper cervical flexion mobility PT-OP-K Range of Motion Start: 08/04/21 14:06 Freq: Status: Active Protocol: Document 07/28/21 12:45 [facility] (Rec: 08/04/21 14:06 [facility] [id number]) Cervical Spine Range of Motion Cervical Spine Active Testing Position Sitting Flexion 60 Extension 20 Rotation Left 20 Rotation Right 20 Lateral Flexion Left 10 Lateral Flexion Right 10 ROM Limitations Soft Tissue Tightness Comments pain on the left side of the levator scapula with cervical sidebending and rotation to the right PT-OP-Q Treatments Start: 08/04/21 14:12 Freq: Status: Active Protocol: Document 08/04/21 13:55 [facility] (Rec: 08/04/21 14:15 [facility] [id number]) Manual Therapy Treatment Soft Tissue Mobilization levator scapula release Mobilization Type Myofascial Release Intensity/Depth Moderate Body Position Hooklying upper trapezius release Mobilization Type Myofascial Release Intensity/Depth Moderate Body Position Hooklying Joint Mobilizations PA glides thoracic spine Joint T2-T8 Grade II Body Position Prone Comments good tolerance, left side thoracic spine hypomobile Manual Techniques sidelying scapular mobilizations Body Location left scapula Body Position right sidelying PT-OP-T Assessment and Plan Start: 07/28/21 12:56 Freq: Status: Active Protocol: Document 08/04/21 13:55 [facility] (Rec: 08/04/21 14:12 [facility] [id number]) Physical Therapy Assessment Assessment Summary Assessment worked on scapular mobilizations in sidelying today and Yaritza Neff tolerated this well, I added in levator scapular stretching for her as well as her upper trap and scalene stretches Physical Therapy Plan Frequency and Duration Frequency of Treatment 2x/Week Duration of Treatment 12 Plan of Care Start Date 07/28/21 Plan of Care End Date 10/27/21 Therapeutic Interventions Therapeutic Interventions Home Exercise Program,Joint Mobilizations,Lymphedema Management,Neuromuscular Re- education,Patient/Caregiver Education,Soft Tissue Mobilization,Therapeutic Exercises Next Visit Focus/Plan Next Note Type Treatment Note Next Visit Plan continue working on releasing the levator scapula, scapular mobilizations, thoracic mobilizations, pec minor stretching
--- NOTE | 2021-08-18 15:01 | PT.OTN ---
Current Diagnoses Dorsalgia, unspecified (08/18/21) Physical Therapy Treatment Note PT-OP-A Visit Information Start: 07/28/21 12:56 Freq: Status: Active Protocol: Document 08/18/21 11:25 [facility] (Rec: 08/18/21 11:30 [facility] [id number]) Out-Patient Physical Therapy Visit Information Visit Information Visit Type Treatment Note Visit Start Time 11:25 Visit Stop Time 12:20 Total Visit Minutes 45 Visit Number 3 PT-OP-B Current Condition Start: 07/28/21 12:56 Freq: Status: Active Protocol: Document 07/28/21 12:45 [facility] (Rec: 08/04/21 14:05 [facility] [id number]) Current Condition History of Current Condition Onset Date x 4 weeks Current Complaints left sided neck pain that radiates to the left shoulder blade, decreased RO History of Current Condition Yaritza Neff reports she went to a concert and after the concert started noticing left sided neck pain that makes it difficulty to turn her head. She has pain with rotation and sidebending. She describes her symptoms primarily as tightness. Yaritza Neff has a history of scoliosis and has been seen on our clinic for spinal pain and for postural exercises previously Treatment Goals Patient/Caregiver Goals goals are to relieve neck pain and improve pain free ROM PT-OP-C Subjective Start: 07/28/21 12:56 Freq: Status: Active Protocol: Document 08/18/21 11:25 [facility] (Rec: 08/18/21 11:30 [facility] [id number]) OP-PT Subjective Patient Comments Patient Comments Yaritza Neff states she was going through lots of paper work and during the hot weather she got really tight. The neck pain is still there on the left Patient Reported Progress Same PT-OP-F Manual Assessment Start: 07/28/21 12:56 Freq: Status: Active Protocol: Document 07/28/21 12:45 [facility] (Rec: 08/04/21 14:05 [facility] [id number]) Manual Assessments Soft Tissue Assessment Soft Tissue Mobility Assessment tightness in the left greater than right levator scapula, upper trap and scalenes pec minor tightness L>R Joint Mobility Assessment Joint Mobility Assessment hypomobility of the left side of the thoracic spine and with central PA glides T2-T8 Decreased scapular mobility with scapula upward rotation Decreased upper cervical flexion mobility PT-OP-K Range of Motion Start: 08/04/21 14:06 Freq: Status: Active Protocol: Document 07/28/21 12:45 [facility] (Rec: 08/04/21 14:06 [facility] [id number]) Cervical Spine Range of Motion Cervical Spine Active Testing Position Sitting Flexion 60 Extension 20 Rotation Left 20 Rotation Right 20 Lateral Flexion Left 10 Lateral Flexion Right 10 ROM Limitations Soft Tissue Tightness Comments pain on the left side of the levator scapula with cervical sidebending and rotation to the right PT-OP-Q Treatments Start: 08/04/21 14:12 Freq: Status: Active Protocol: Document 08/18/21 11:25 [facility] (Rec: 08/18/21 14:59 [facility] [id number]) Manual Therapy Treatment Soft Tissue Mobilization thoracic paraspinals Mobilization Type Myofascial Release Body Position Prone Comments left greater than right sided tightness levator scapula release Mobilization Type Myofascial Release Intensity/Depth Moderate Body Position Prone upper trapezius release Mobilization Type Myofascial Release Intensity/Depth Moderate Body Position Prone Joint Mobilizations PA glides thoracic spine Joint T2-T8 Grade II Body Position Prone Comments good tolerance, left side thoracic spine hypomobile PT-OP-T Assessment and Plan Start: 07/28/21 12:56 Freq: Status: Active Protocol: Document 08/18/21 11:25 [facility] (Rec: 08/18/21 14:59 [facility] [id number]) Physical Therapy Assessment Assessment Summary Assessment worked on Yaritza Neff in prone today to release the thoracic paraspinals and upper traps and this position was better for her. I encouraged continued use of her foam roll to release the thoracic spine and encourage thoracic extension as she is hypomobile in T spine Physical Therapy Plan Frequency and Duration Frequency of Treatment 2x/Week Duration of Treatment 12 Plan of Care Start Date 07/28/21 Plan of Care End Date 10/27/21 Therapeutic Interventions Therapeutic Interventions Home Exercise Program,Joint Mobilizations,Lymphedema Management,Neuromuscular Re- education,Patient/Caregiver Education,Soft Tissue Mobilization,Therapeutic Exercises Next Visit Focus/Plan Next Note Type Treatment Note Next Visit Plan continue working on releasing the levator scapula, scapular mobilizations, thoracic mobilizations, pec minor stretching
--- NOTE | 2021-08-25 12:55 | PT.OTN ---
Current Diagnoses Dorsalgia, unspecified (08/25/21) Physical Therapy Treatment Note PT-OP-A Visit Information Start: 07/28/21 12:56 Freq: Status: Active Protocol: Document 08/25/21 12:01 [facility] (Rec: 08/25/21 12:55 [facility] [id number]) Out-Patient Physical Therapy Visit Information Visit Information Visit Type Treatment Note Visit Start Time 12:00 Visit Stop Time 12:45 Total Visit Minutes 45 Visit Number 4 PT-OP-B Current Condition Start: 07/28/21 12:56 Freq: Status: Active Protocol: Document 07/28/21 12:45 [facility] (Rec: 08/04/21 14:05 [facility] [id number]) Current Condition History of Current Condition Onset Date x 4 weeks Current Complaints left sided neck pain that radiates to the left shoulder blade, decreased RO History of Current Condition Yaritza Neff reports she went to a concert and after the concert started noticing left sided neck pain that makes it difficulty to turn her head. She has pain with rotation and sidebending. She describes her symptoms primarily as tightness. Yaritza Neff has a history of scoliosis and has been seen on our clinic for spinal pain and for postural exercises previously Treatment Goals Patient/Caregiver Goals goals are to relieve neck pain and improve pain free ROM PT-OP-C Subjective Start: 07/28/21 12:56 Freq: Status: Active Protocol: Document 08/25/21 12:01 [facility] (Rec: 08/25/21 12:55 [facility] [id number]) OP-PT Subjective Patient Comments Patient Comments the left side of her upper trap has improved but she would still like to work on the left side of her neck. She notes she was very good about her exercises PT-OP-F Manual Assessment Start: 07/28/21 12:56 Freq: Status: Active Protocol: Document 07/28/21 12:45 [facility] (Rec: 08/04/21 14:05 [facility] [id number]) Manual Assessments Soft Tissue Assessment Soft Tissue Mobility Assessment tightness in the left greater than right levator scapula, upper trap and scalenes pec minor tightness L>R Joint Mobility Assessment Joint Mobility Assessment hypomobility of the left side of the thoracic spine and with central PA glides T2-T8 Decreased scapular mobility with scapula upward rotation Decreased upper cervical flexion mobility PT-OP-K Range of Motion Start: 08/04/21 14:06 Freq: Status: Active Protocol: Document 07/28/21 12:45 [facility] (Rec: 08/04/21 14:06 [facility] [id number]) Cervical Spine Range of Motion Cervical Spine Active Testing Position Sitting Flexion 60 Extension 20 Rotation Left 20 Rotation Right 20 Lateral Flexion Left 10 Lateral Flexion Right 10 ROM Limitations Soft Tissue Tightness Comments pain on the left side of the levator scapula with cervical sidebending and rotation to the right PT-OP-Q Treatments Start: 08/04/21 14:12 Freq: Status: Active Protocol: Document 08/25/21 12:01 [facility] (Rec: 08/25/21 12:55 [facility] [id number]) Manual Therapy Treatment Soft Tissue Mobilization thoracic paraspinals Mobilization Type Myofascial Release Body Position Prone Comments left greater than right sided tightness levator scapula release Mobilization Type Myofascial Release Intensity/Depth Moderate Body Position Prone upper trapezius release Mobilization Type Myofascial Release Intensity/Depth Moderate Body Position Prone PT-OP-T Assessment and Plan Start: 07/28/21 12:56 Freq: Status: Active Protocol: Document 08/25/21 12:01 [facility] (Rec: 08/25/21 12:55 [facility] [id number]) Physical Therapy Assessment Assessment Summary Assessment Pt is making good improvements with decreasing pain in the left upper trapezius and mid scapular region now and myofascial restrictions are decreasing. With her scoliosis she is hypomobile the left side of her thoracic spine. She is working on her foam roll, stretches, and going to the pool to continue her mobility Physical Therapy Plan Frequency and Duration Frequency of Treatment 2x/Week Duration of Treatment 12 Plan of Care Start Date 07/28/21 Plan of Care End Date 10/27/21 Therapeutic Interventions Therapeutic Interventions Home Exercise Program,Joint Mobilizations,Lymphedema Management,Neuromuscular Re- education,Patient/Caregiver Education,Soft Tissue Mobilization,Therapeutic Exercises Next Visit Focus/Plan Next Note Type Treatment Note Next Visit Plan continue working on releasing the levator scapula, scapular mobilizations, thoracic mobilizations, pec minor stretching
--- NOTE | 2021-09-01 13:43 | PT.OTN ---
Current Diagnoses Dorsalgia, unspecified (09/01/21) Physical Therapy Treatment Note PT-OP-A Visit Information Start: 07/28/21 12:56 Freq: Status: Active Protocol: Document 09/01/21 12:50 [facility] (Rec: 09/01/21 13:40 [facility] [id number]) Out-Patient Physical Therapy Visit Information Visit Information Visit Type Treatment Note Visit Start Time 12:50 Visit Stop Time 13:35 Total Visit Minutes 45 Visit Number 5 PT-OP-B Current Condition Start: 07/28/21 12:56 Freq: Status: Active Protocol: Document 07/28/21 12:45 [facility] (Rec: 08/04/21 14:05 [facility] [id number]) Current Condition History of Current Condition Onset Date x 4 weeks Current Complaints left sided neck pain that radiates to the left shoulder blade, decreased RO History of Current Condition Yaritza Neff reports she went to a concert and after the concert started noticing left sided neck pain that makes it difficulty to turn her head. She has pain with rotation and sidebending. She describes her symptoms primarily as tightness. Yaritza Neff has a history of scoliosis and has been seen on our clinic for spinal pain and for postural exercises previously Treatment Goals Patient/Caregiver Goals goals are to relieve neck pain and improve pain free ROM PT-OP-C Subjective Start: 07/28/21 12:56 Freq: Status: Active Protocol: Document 09/01/21 12:50 [facility] (Rec: 09/01/21 13:40 [facility] [id number]) OP-PT Subjective Patient Comments Patient Comments Yaritza Neff reports her neck is continuing to improve and slowly not feeling as tight. She has been at the pool and working on her stretches PT-OP-F Manual Assessment Start: 07/28/21 12:56 Freq: Status: Active Protocol: Document 07/28/21 12:45 [facility] (Rec: 08/04/21 14:05 [facility] [id number]) Manual Assessments Soft Tissue Assessment Soft Tissue Mobility Assessment tightness in the left greater than right levator scapula, upper trap and scalenes pec minor tightness L>R Joint Mobility Assessment Joint Mobility Assessment hypomobility of the left side of the thoracic spine and with central PA glides T2-T8 Decreased scapular mobility with scapula upward rotation Decreased upper cervical flexion mobility PT-OP-K Range of Motion Start: 08/04/21 14:06 Freq: Status: Active Protocol: Document 07/28/21 12:45 [facility] (Rec: 08/04/21 14:06 [facility] [id number]) Cervical Spine Range of Motion Cervical Spine Active Testing Position Sitting Flexion 60 Extension 20 Rotation Left 20 Rotation Right 20 Lateral Flexion Left 10 Lateral Flexion Right 10 ROM Limitations Soft Tissue Tightness Comments pain on the left side of the levator scapula with cervical sidebending and rotation to the right PT-OP-Q Treatments Start: 08/04/21 14:12 Freq: Status: Active Protocol: Document 09/01/21 12:50 [facility] (Rec: 09/01/21 13:42 [facility] [id number]) Manual Therapy Treatment Soft Tissue Mobilization thoracic paraspinals Mobilization Type Myofascial Release Body Position Prone Comments left greater than right sided tightness levator scapula release Mobilization Type Myofascial Release Intensity/Depth Moderate Body Position Prone upper trapezius release Mobilization Type Myofascial Release Intensity/Depth Moderate Body Position Prone Joint Mobilizations PA glides thoracic spine Joint T2-T8 Grade II Body Position Prone Comments good tolerance, left side thoracic spine hypomobile PT-OP-T Assessment and Plan Start: 07/28/21 12:56 Freq: Status: Active Protocol: Document 09/01/21 12:50 [facility] (Rec: 09/01/21 13:42 [facility] [id number]) Physical Therapy Assessment Assessment Summary Assessment pt continues to make progress with decreased tension in the levator scapula. Continue to work on scapular mobilizations and opening up the pec minor region with stretches Physical Therapy Plan Frequency and Duration Frequency of Treatment 2x/Week Duration of Treatment 12 Plan of Care Start Date 07/28/21 Plan of Care End Date 10/27/21 Therapeutic Interventions Therapeutic Interventions Home Exercise Program,Joint Mobilizations,Lymphedema Management,Neuromuscular Re- education,Patient/Caregiver Education,Soft Tissue Mobilization,Therapeutic Exercises Next Visit Focus/Plan Next Note Type Treatment Note Next Visit Plan continue working on releasing the levator scapula, scapular mobilizations, thoracic mobilizations, pec minor stretching
--- NOTE | 2021-09-08 14:01 | PT.OTN ---
Current Diagnoses Dorsalgia, unspecified (09/08/21) Physical Therapy Treatment Note PT-OP-A Visit Information Start: 07/28/21 12:56 Freq: Status: Active Protocol: Document 09/08/21 12:50 [facility] (Rec: 09/08/21 13:58 [facility] [id number]) Out-Patient Physical Therapy Visit Information Visit Information Visit Type Treatment Note Visit Start Time 12:50 Visit Stop Time 13:35 Total Visit Minutes 45 Visit Number 6 PT-OP-B Current Condition Start: 07/28/21 12:56 Freq: Status: Active Protocol: Document 07/28/21 12:45 [facility] (Rec: 08/04/21 14:05 [facility] [id number]) Current Condition History of Current Condition Onset Date x 4 weeks Current Complaints left sided neck pain that radiates to the left shoulder blade, decreased RO History of Current Condition Yaritza Neff reports she went to a concert and after the concert started noticing left sided neck pain that makes it difficulty to turn her head. She has pain with rotation and sidebending. She describes her symptoms primarily as tightness. Yaritza Neff has a history of scoliosis and has been seen on our clinic for spinal pain and for postural exercises previously Treatment Goals Patient/Caregiver Goals goals are to relieve neck pain and improve pain free ROM PT-OP-C Subjective Start: 07/28/21 12:56 Freq: Status: Active Protocol: Document 09/08/21 12:50 [facility] (Rec: 09/08/21 13:58 [facility] [id number]) OP-PT Subjective Patient Comments Patient Comments pt notes she is still feeling stiffness in the left levator scapular region PT-OP-F Manual Assessment Start: 07/28/21 12:56 Freq: Status: Active Protocol: Document 07/28/21 12:45 [facility] (Rec: 08/04/21 14:05 [facility] [id number]) Manual Assessments Soft Tissue Assessment Soft Tissue Mobility Assessment tightness in the left greater than right levator scapula, upper trap and scalenes pec minor tightness L>R Joint Mobility Assessment Joint Mobility Assessment hypomobility of the left side of the thoracic spine and with central PA glides T2-T8 Decreased scapular mobility with scapula upward rotation Decreased upper cervical flexion mobility PT-OP-K Range of Motion Start: 08/04/21 14:06 Freq: Status: Active Protocol: Document 07/28/21 12:45 [facility] (Rec: 08/04/21 14:06 [facility] [id number]) Cervical Spine Range of Motion Cervical Spine Active Testing Position Sitting Flexion 60 Extension 20 Rotation Left 20 Rotation Right 20 Lateral Flexion Left 10 Lateral Flexion Right 10 ROM Limitations Soft Tissue Tightness Comments pain on the left side of the levator scapula with cervical sidebending and rotation to the right PT-OP-Q Treatments Start: 08/04/21 14:12 Freq: Status: Active Protocol: Document 09/08/21 12:50 [facility] (Rec: 09/08/21 13:58 [facility] [id number]) Therapeutic Exercises Sitting Exercises seated scalene stretch Reps/Minutes 2 xms hold 30 sec each side seated levator scapular stretch Reps/Minutes 2 xms hold 30 sec each side Manual Therapy Treatment Soft Tissue Mobilization thoracic paraspinals Mobilization Type Myofascial Release Body Position Prone Comments left greater than right sided tightness levator scapula release Mobilization Type Myofascial Release Intensity/Depth Moderate Body Position Prone upper trapezius release Mobilization Type Myofascial Release Intensity/Depth Moderate Body Position Prone Manual Techniques manual levator scapula stretch Body Position Supine PT-OP-R Modalities Start: 09/08/21 13:58 Freq: Status: Active Protocol: Document 09/08/21 12:50 [facility] (Rec: 09/08/21 14:00 [facility] [id number]) Ultrasound Therapy Treatment Left Upper Back Patient Position Prone Coupling Medium Ultrasound Gel Applicator Size (cm2) 5 Mode Setting Continuous Duty Cycle 100% Intensity Setting (w/cm2) 1.5 Comments over the levator scapula attachments PT-OP-T Assessment and Plan Start: 07/28/21 12:56 Freq: Status: Active Protocol: Document 09/08/21 12:50 [facility] (Rec: 09/08/21 13:58 [facility] [id number]) Physical Therapy Assessment Assessment Summary Assessment trial of US today over the levator scapula attachments. Pt could feel it releasing a little better with self stretch after treatment today Physical Therapy Plan Frequency and Duration Frequency of Treatment 2x/Week Duration of Treatment 12 Plan of Care Start Date 07/28/21 Plan of Care End Date 10/27/21 Therapeutic Interventions Therapeutic Interventions Home Exercise Program,Joint Mobilizations,Lymphedema Management,Neuromuscular Re- education,Patient/Caregiver Education,Soft Tissue Mobilization,Therapeutic Exercises Next Visit Focus/Plan Next Note Type Treatment Note Next Visit Plan continue working on releasing the levator scapula, scapular mobilizations, thoracic mobilizations, pec minor stretching
--- NOTE | 2021-09-29 13:51 | PT.OTN ---
Current Diagnoses Dorsalgia, unspecified (09/29/21) Physical Therapy Treatment Note PT-OP-A Visit Information Start: 07/28/21 12:56 Freq: Status: Active Protocol: Document 09/29/21 12:45 [facility] (Rec: 09/29/21 13:48 [facility] [id number]) Out-Patient Physical Therapy Visit Information Visit Information Visit Type Treatment Note Visit Start Time 12:50 Visit Stop Time 13:30 Total Visit Minutes 45 Visit Number 7 PT-OP-B Current Condition Start: 07/28/21 12:56 Freq: Status: Active Protocol: Document 07/28/21 12:45 [facility] (Rec: 08/04/21 14:05 [facility] [id number]) Current Condition History of Current Condition Onset Date x 4 weeks Current Complaints left sided neck pain that radiates to the left shoulder blade, decreased RO History of Current Condition Yaritza Neff reports she went to a concert and after the concert started noticing left sided neck pain that makes it difficulty to turn her head. She has pain with rotation and sidebending. She describes her symptoms primarily as tightness. Yaritza Neff has a history of scoliosis and has been seen on our clinic for spinal pain and for postural exercises previously Treatment Goals Patient/Caregiver Goals goals are to relieve neck pain and improve pain free ROM PT-OP-C Subjective Start: 07/28/21 12:56 Freq: Status: Active Protocol: Document 09/29/21 12:45 [facility] (Rec: 09/29/21 13:50 [facility] [id number]) OP-PT Subjective Patient Comments Patient Comments pt notes she continues to have the tightness in her neck on the left side but she has been working on all her stretches and the pool program, she is also experiencing pelvic pressure from pelvic organ prolapse Patient Reported Progress Improving PT-OP-F Manual Assessment Start: 07/28/21 12:56 Freq: Status: Active Protocol: Document 07/28/21 12:45 [facility] (Rec: 08/04/21 14:05 [facility] [id number]) Manual Assessments Soft Tissue Assessment Soft Tissue Mobility Assessment tightness in the left greater than right levator scapula, upper trap and scalenes pec minor tightness L>R Joint Mobility Assessment Joint Mobility Assessment hypomobility of the left side of the thoracic spine and with central PA glides T2-T8 Decreased scapular mobility with scapula upward rotation Decreased upper cervical flexion mobility PT-OP-K Range of Motion Start: 06/15/22 14:06 Freq: Status: Active Protocol: Document 07/28/21 12:45 [facility] (Rec: 08/04/21 14:06 [facility] [id number]) Cervical Spine Range of Motion Cervical Spine Active Testing Position Sitting Flexion 60 Extension 20 Rotation Left 20 Rotation Right 20 Lateral Flexion Left 10 Lateral Flexion Right 10 ROM Limitations Soft Tissue Tightness Comments pain on the left side of the levator scapula with cervical sidebending and rotation to the right PT-OP-Q Treatments Start: 08/04/21 14:12 Freq: Status: Active Protocol: Document 09/29/21 12:45 [facility] (Rec: 09/29/21 13:48 [facility] [id number]) Therapeutic Exercises Other Exercises hip ER with band Reps/Minutes 2x10 reps hip roll ins Reps/Minutes 2 x 10 Manual Therapy Treatment Soft Tissue Mobilization thoracic paraspinals Mobilization Type Myofascial Release Body Position Prone Comments left greater than right sided tightness levator scapula release Mobilization Type Myofascial Release Intensity/Depth Moderate Body Position Prone PT-OP-R Modalities Start: 09/08/21 13:58 Freq: Status: Active Protocol: Document 09/08/21 12:50 [facility] (Rec: 09/08/21 14:00 [facility] [id number]) Ultrasound Therapy Treatment Left Upper Back Patient Position Prone Coupling Medium Ultrasound Gel Applicator Size (cm2) 5 Mode Setting Continuous Duty Cycle 100% Intensity Setting (w/cm2) 1.5 Comments over the levator scapula attachments PT-OP-T Assessment and Plan Start: 07/28/21 12:56 Freq: Status: Active Protocol: Document 09/29/21 12:45 [facility] (Rec: 09/29/21 13:48 [facility] [id number]) Physical Therapy Assessment Assessment Summary Assessment pt is still tight at the levator ani, we also worked on elevating her pelvis today due to symptoms of pelvic organ prolapse, she would like to get a new referral to begin working on pelvic floor strengthening Physical Therapy Plan Frequency and Duration Frequency of Treatment 2x/Week Duration of Treatment 12 Plan of Care Start Date 07/28/21 Plan of Care End Date 10/27/21 Therapeutic Interventions Therapeutic Interventions Home Exercise Program,Joint Mobilizations,Lymphedema Management,Neuromuscular Re- education,Patient/Caregiver Education,Soft Tissue Mobilization,Therapeutic Exercises Next Visit Focus/Plan Next Note Type Treatment Note Next Visit Plan pt may bring in new referral for pelvic floor strengthening before next visit. If she can get her referral before next visit we will DC PT for her neck and begin work on the pelvic floor
--- NOTE | 2021-10-27 09:14 | PT.OPDS ---
Current Diagnoses Dorsalgia, unspecified (09/29/21) Visit Care Team Role Provider Type Lan Gomes MD Attending Provider Physician Family Provider Primary Care Provider Referring Provider Specialty: Family Practice Address: [address] [place] [address], [facility] Email: [email or web address] Visit Number Visit Number 7 Discharge Summary PT-OP-B Current Condition Start: 07/28/21 12:56 Freq: Status: Active Protocol: Document 07/28/21 12:45 [facility] (Rec: 08/04/21 14:05 [facility] [id number]) Current Condition History of Current Condition Onset Date x 4 weeks Current Complaints left sided neck pain that radiates to the left shoulder blade, decreased RO History of Current Condition Yaritza Neff reports she went to a concert and after the concert started noticing left sided neck pain that makes it difficulty to turn her head. She has pain with rotation and sidebending. She describes her symptoms primarily as tightness. Yaritza Neff has a history of scoliosis and has been seen on our clinic for spinal pain and for postural exercises previously Treatment Goals Patient/Caregiver Goals goals are to relieve neck pain and improve pain free ROM PT-OP-C Subjective Start: 07/28/21 12:56 Freq: Status: Active Protocol: Document 09/29/21 12:45 [facility] (Rec: 09/29/21 13:50 [facility] [id number]) OP-PT Subjective Patient Comments Patient Comments pt notes she continues to have the tightness in her neck on the left side but she has been working on all her stretches and the pool program, she is also experiencing pelvic pressure from pelvic organ prolapse Patient Reported Progress Improving PT-OP-F Manual Assessment Start: 07/28/21 12:56 Freq: Status: Active Protocol: Document 07/28/21 12:45 [facility] (Rec: 08/04/21 14:05 [facility] [id number]) Manual Assessments Soft Tissue Assessment Soft Tissue Mobility Assessment tightness in the left greater than right levator scapula, upper trap and scalenes pec minor tightness L>R Joint Mobility Assessment Joint Mobility Assessment hypomobility of the left side of the thoracic spine and with central PA glides T2-T8 Decreased scapular mobility with scapula upward rotation Decreased upper cervical flexion mobility PT-OP-K Range of Motion Start: 08/04/21 14:06 Freq: Status: Active Protocol: Document 07/28/21 12:45 [facility] (Rec: 08/04/21 14:06 [facility] [id number]) Cervical Spine Range of Motion Cervical Spine Active Testing Position Sitting Flexion 60 Extension 20 Rotation Left 20 Rotation Right 20 Lateral Flexion Left 10 Lateral Flexion Right 10 ROM Limitations Soft Tissue Tightness Comments pain on the left side of the levator scapula with cervical sidebending and rotation to the right PT-OP-T Assessment and Plan Start: 07/28/21 12:56 Freq: Status: Active Protocol: Document 10/27/21 09:13 [facility] (Rec: 10/27/21 09:14 [facility] [id number]) Physical Therapy Assessment Assessment Summary Assessment pt is ready to DC PT for her back and will resume PT for her pelvic floor Physical Therapy Plan Discharge Physical Therapy Discharge Reasons Patient Request
== END 2021-11-03 11:01 ==
LOC: PHYS 12:45
PROVIDERS: Family Provider Family Medicine; PCP Family Medicine; Referring Provider Family Medicine; Visit Provider Family Medicine
DX: M54.9 Dorsalgia, unspecified (principal)
CPT/HCPCS: 97035; 97110; 97140; 97161

== ENCOUNTER → 2021-10-23 10:23 | Outpatient (CLI) | payer MEDICARE, OTHER, SELFPAY ==
[2021-10-23 11:28] LABS: Glucose 99 mg/dL (80-110)
== END ==
PROVIDERS: Family Provider Family Medicine; PCP Family Medicine; Referring Provider Family Medicine; Visit Provider Family Medicine
DX: R73.01 Impaired fasting glucose (principal)
CPT/HCPCS: 36415; 82947

== ENCOUNTER 2021-12-29 12:45 | Outpatient (RCR) | payer MEDICARE, OTHER, SELFPAY ==
--- NOTE | 2021-10-27 18:25 | PT.OPPOC ---
Physical, Occupational & Speech Therapy At [facility] Current Diagnoses Other specified disorders of muscle (10/27/21) Visit Care Team Role Provider Type Lan Gomes MD Attending Provider Physician Family Provider Primary Care Provider Referring Provider Specialty: Family Practice Address: [address] [place] [address], [id number] Email: [email or web address] Plan Of Care PT-OP-T Assessment and Plan Start: 10/27/21 12:43 Freq: Status: Active Protocol: Document 10/27/21 12:45 [facility] (Rec: 11/02/21 18:24 [facility] [id number]) Physical Therapy Assessment Goals myofascial tightness over the diaphragm and ribs Impairment myofascial tightness over the diaphragm and ribs Director Food Safety Goal (LTG) improved fascial mobility of the diaphragm and rib cage LTG Duration 12 weeks Decreased strength of the anterior pelvic floor Impairment Decreased strength of the anterior pelvic floor Senior Living Goal (LTG) Yaritza Neff is able to increase anterior pelvic floor strength with MMT LTG Duration 12 weeks pelvic pressure and heaviness Impairment pt reports pelvic pressure and heaviness worse after her walks and at the end of the day Short Term Goal (STG) Yaritza Neff is educated on pelvic organ prolapse and positioning to help relieve symptoms STG Duration 3 weeks Director Food Safety Goal (LTG) Yaritza Neff reports a overall reduction in her pelvic organ prolapse symptoms. She is no longer c/o pelvic pain and heaviness following her walks LTG Duration 12 weeks Assessment Summary Assessment Yaritza Neff is a 76 year old female referred to physical therapy for pelvic floor rehab . She began c/o pelvic pressure and bladder irritation approx 2 months ago . With evaluation today she presents with a grade 2 uterine prolapse and grade 1-2 cyctecele. She is able to contract all parts of the levator ani but is a little weaker in the anterior wall. She has difficulty relaxing her pelvic floor following a contraction and her resting tone is elevated at 8.9 uv. Yaritza Neff has a history of scoliosis and she does often get tight under her rib cage. With assesment today she has limited rib cage mobility and is restricted in the fascia of the diaphragm. Tightness here may also be creating downward pressure on the pelvic floor. Yaritza Neff is a good candidate for PT for both pelvic floor strengthening as well as working on opening up her rib cage to reduce downward pressure on her pelvic floor. Physical Therapy Plan Frequency and Duration Frequency of Treatment 1x/Week Duration of Treatment 12 Plan of Care Start Date 10/27/21 Plan of Care End Date 01/26/22 Therapeutic Interventions Therapeutic Interventions Home Exercise Program,Manual Therapy,Neuromuscular Re- education,Patient/Caregiver Education,Self-Care/Home Management,Therapeutic Exercises Next Visit Focus/Plan Next Note Type Treatment Note Next Visit Plan Begin EMG biofeedback for pelvic floor strengthening, diaphragmatic breathing and MFR to open up the fascia around the rib cage and diaphragm. Plan of Care Dates Plan of Care Start Date 10/27/21 Plan of Care End Date 01/26/22 Electronically Signed by: Danya Blanco, PT 11/02/21 4421 If you are in agreement with this Plan of Care, please return a signed and dated copy. I have reviewed this Plan of Care and certify that the skilled therapy services above are required to meet the patient?s needs. Physician Signature Date Printed Name and Credentials Clinical Instructor Signature Printed Name and Credentials
--- NOTE | 2021-10-27 18:25 | PT.OIE ---
Current Diagnoses Other specified disorders of muscle (10/27/21) Past Medical History (Last Reviewed 09/27/17 @ 11:46 by Sonal Sanchez LPN) Abnormal Pap smear of cervix (1988) Acquired hypothyroidism (2011) Anemia (1986) Chicken pox (1953) Chronic back pain (1986) Colitis (1971) CTS (carpal tunnel syndrome) (1989) Diverticular disease (2005) Gastroesophageal reflux disease (11/26/10) HPV (human papilloma virus) infection (2007) Hyperlipidemia Lumbar spine pain Measles (1953) Osteopenia (2011) Scoliosis (1986) Past Surgical History (Last Reviewed 09/27/17 @ 11:46 by Sonal Sanchez LPN) Anesthesia History of bilateral salpingo-oophorectomy (BSO) History of left oophorectomy (1988) Status post bunionectomy (2007) Status post bunionectomy (2013) Status post tonsillectomy and adenoidectomy (1953) Visit Care Team Role Provider Type Lan Gomes MD Attending Provider Physician Family Provider Primary Care Provider Referring Provider Specialty: [facility] Address: [address] [place] [address] Email: [email or web address] Physical Therapy Initial Evaluation PT-OP-A Visit Information Start: 10/27/21 12:43 Freq: Status: Active Protocol: Document 10/27/21 12:44 [facility] (Rec: 10/27/21 13:44 [facility] [id number]) Out-Patient Physical Therapy Visit Information Visit Information Visit Type Initial Evaluation Visit Start Time 12:45 Visit Stop Time 13:30 Total Visit Minutes 45 Visit Number 1 PT-OP-B Current Condition Start: 10/27/21 12:43 Freq: Status: Active Protocol: Document 10/27/21 12:44 [facility] (Rec: 10/27/21 13:44 [facility] [id number]) Current Condition History of Current Condition Onset Date 2 months Current Complaints pelvic pressure History of Current Condition pt has newer onset of pelvic organ prolapse symptoms, more of her symptoms occur at night She has a uterine prolapse grade 2. Yaritza neff reports that after walking if her bladder is full she will experience urgency which can cause some leakage prior to sitting down on the toilet She wakes up 2 times at night to void Treatment Goals Patient/Caregiver Goals pt would like to decrease her pelvic pressure and would like to be able to do her walks without pelvic pressure Prior Functional Status Baseline Function- ADL's Independent Baseline Function- Mobility Independent PT-OP-F Manual Assessment Start: 11/02/21 18:24 Freq: Status: Active Protocol: Document 10/27/21 12:45 [facility] (Rec: 11/02/21 18:25 [facility] [id number]) Manual Assessments Soft Tissue Assessment Soft Tissue Mobility Assessment myofascial tightness of the diaphragm and rib cage mobility is decreased. Pt tends to contract her obliques when attempting a pelvic floor contractions PT-OP-I Pelvic Floor Start: 10/27/21 12:43 Freq: Status: Active Protocol: Document 10/27/21 12:45 [facility] (Rec: 11/02/21 18:24 [facility] [id number]) Pelvic Floor Assessment Urine Pelvic Floor Surgery No Urinary Symptoms Urge Sensation,Prolapse, Falling Out Feeling/Heavy,Pain Leakage Size Small Leakage Cause Cough Nocturia 2 xms Pelvic Clock Pelvic Clock 3-6 Tightness Pelvic Clock 6-9 Tightness Pelvic Clock Other uterine prolapse grade 2 cyctecele grade 1-2 SEMG (uV) Baseline 8.9 10 Second Contraction 17.6 Recruitment Pattern Good Relaxation Fair Holding Good Stability of Hold Good SEMG Stability of Rest Fair Contraction Ability Voluntary Contraction Weak Voluntary Relaxation Weak Manual Muscle Testing Left 4 Manual Muscle Testing Right 4 Manual Muscle Testing Anterior 3 Manual Muscle Testing Posterior 4 Comments Pelvic Floor Comments on EMG biofeedback average is 17.6 uv with max of 34 uv 2nd degree uterine prolapse 1-2 degree bladder propapse PT-OP-J Posture/Palpation/Skin Start: 10/27/21 12:43 Freq: Status: Active Protocol: Document 10/27/21 12:45 [facility] (Rec: 11/02/21 18:24 [facility] [id number]) Palpation Assessment Location abdominal obliques Palpation Findings Soft Tissue Tightness,Muscle Guarding Palpation Details pt tends to guard in her obliques with her scoliosis, this may be causing a downward pressure on her pelvic floor PT-OP-Q Treatments Start: 10/27/21 12:43 Freq: Status: Active Protocol: Document 10/27/21 12:45 [facility] (Rec: 11/02/21 18:24 [facility] [id number]) Therapeutic Exercises Supine Exercises diaphragmatic breathing Reps/Minutes inhale x 4, exhale x 6 x 5 reps Comments emphasis to relax the upper abdominal wall pelvic floor long holds Side bilateral Reps/Minutes 10 reps holding 10 seconds and relaxing 10 seconds PT-OP-T Assessment and Plan Start: 10/27/21 12:43 Freq: Status: Active Protocol: Document 10/27/21 12:45 [facility] (Rec: 11/02/21 18:24 [facility] [id number]) Physical Therapy Assessment Goals myofascial tightness over the diaphragm and ribs Impairment myofascial tightness over the diaphragm and ribs Long-Term Goal (LTG) improved fascial mobility of the diaphragm and rib cage LTG Duration 12 weeks Decreased strength of the anterior pelvic floor Impairment Decreased strength of the anterior pelvic floor Long-Term Goal (LTG) Yaritza Neff is able to increase anterior pelvic floor strength with MMT LTG Duration 12 weeks pelvic pressure and heaviness Impairment pt reports pelvic pressure and heaviness worse after her walks and at the end of the day Short Term Goal (STG) Yaritza Neff is educated on pelvic organ prolapse and positioning to help relieve symptoms STG Duration 3 weeks Long-Term Goal (LTG) Yaritza Neff reports a overall reduction in her pelvic organ prolapse symptoms. She is no longer c/o pelvic pain and heaviness following her walks LTG Duration 12 weeks Assessment Summary Assessment Yaritza Neff is a 76 year old female referred to physical therapy for pelvic floor rehab . She began c/o pelvic pressure and bladder irritation approx 2 months ago . With evaluation today she presents with a grade 2 uterine prolapse and grade 1-2 cyctecele. She is able to contract all parts of the levator ani but is a little weaker in the anterior wall. She has difficulty relaxing her pelvic floor following a contraction and her resting tone is elevated at 8.9 uv. Yaritza Neff has a history of scoliosis and she does often get tight under her rib cage. With assesment today she has limited rib cage mobility and is restricted in the fascia of the diaphragm. Tightness here may also be creating downward pressure on the pelvic floor. Yaritza Neff is a good candidate for PT for both pelvic floor strengthening as well as working on opening up her rib cage to reduce downward pressure on her pelvic floor. Physical Therapy Plan Frequency and Duration Frequency of Treatment 1x/Week Duration of Treatment 12 Plan of Care Start Date 10/27/21 Plan of Care End Date 01/26/22 Therapeutic Interventions Therapeutic Interventions Home Exercise Program,Manual Therapy,Neuromuscular Re- education,Patient/Caregiver Education,Self-Care/Home Management,Therapeutic Exercises Next Visit Focus/Plan Next Note Type Treatment Note Next Visit Plan Begin EMG biofeedback for pelvic floor strengthening, diaphragmatic breathing and MFR to open up the fascia around the rib cage and diaphragm.
--- NOTE | 2021-11-18 16:55 | PT.OTN ---
Current Diagnoses Other specified disorders of muscle (11/18/21) Physical Therapy Treatment Note PT-OP-A Visit Information Start: 10/27/21 12:43 Freq: Status: Active Protocol: Document 11/18/21 16:03 [facility] (Rec: 11/18/21 16:55 [facility] [id number]) Out-Patient Physical Therapy Visit Information Visit Information Visit Type Treatment Note Visit Start Time 16:00 Visit Stop Time 16:45 Total Visit Minutes 45 Visit Number 2 PT-OP-B Current Condition Start: 10/27/21 12:43 Freq: Status: Active Protocol: Document 10/27/21 12:44 [facility] (Rec: 10/27/21 13:44 [facility] [id number]) Current Condition History of Current Condition Onset Date 2 months Current Complaints pelvic pressure History of Current Condition pt has newer onset of pelvic organ prolapse symptoms, more of her symptoms occur at night She has a uterine prolapse grade 2. Yaritza pham reports that after walking if her bladder is full she will experience urgency which can cause some leakage prior to sitting down on the toilet She wakes up 2 times at night to void Treatment Goals Patient/Caregiver Goals pt would like to decrease her pelvic pressure and would like to be able to do her walks without pelvic pressure Prior Functional Status Baseline Function- ADL's Independent Baseline Function- Mobility Independent PT-OP-C Subjective Start: 10/27/21 12:43 Freq: Status: Active Protocol: Document 11/18/21 16:03 [facility] (Rec: 11/18/21 16:55 [facility] [id number]) OP-PT Subjective Patient Comments Patient Comments this afternoon she is more fatigued and she feels like things are falling out PT-OP-F Manual Assessment Start: 11/02/21 18:24 Freq: Status: Active Protocol: Document 10/27/21 12:45 [facility] (Rec: 11/02/21 18:25 [facility] [id number]) Manual Assessments Soft Tissue Assessment Soft Tissue Mobility Assessment myofascial tightness of the diaphragm and rib cage mobility is decreased. Pt tends to contract her obliques when attempting a pelvic floor contractions PT-OP-I Pelvic Floor Start: 10/27/21 12:43 Freq: Status: Active Protocol: Document 10/27/21 12:45 [facility] (Rec: 11/02/21 18:24 [facility] [id number]) Pelvic Floor Assessment Urine Pelvic Floor Surgery No Urinary Symptoms Urge Sensation,Prolapse, Falling Out Feeling/Heavy,Pain Leakage Size Small Leakage Cause Cough Nocturia 2 xms Pelvic Clock Pelvic Clock 3-6 Tightness Pelvic Clock 6-9 Tightness Pelvic Clock Other uterine prolapse grade 2 cyctecele grade 1-2 SEMG (uV) Baseline 8.9 10 Second Contraction 17.6 Recruitment Pattern Good Relaxation Fair Holding Good Stability of Hold Good SEMG Stability of Rest Fair Contraction Ability Voluntary Contraction Weak Voluntary Relaxation Weak Manual Muscle Testing Left 4 Manual Muscle Testing Right 4 Manual Muscle Testing Anterior 3 Manual Muscle Testing Posterior 4 Comments Pelvic Floor Comments on EMG biofeedback average is 17.6 uv with max of 34 uv 2nd degree uterine prolapse 1-2 degree bladder propapse PT-OP-J Posture/Palpation/Skin Start: 10/27/21 12:43 Freq: Status: Active Protocol: Document 10/27/21 12:45 [facility] (Rec: 11/02/21 18:24 [facility] [id number]) Palpation Assessment Location abdominal obliques Palpation Findings Soft Tissue Tightness,Muscle Guarding Palpation Details pt tends to guard in her obliques with her scoliosis, this may be causing a downward pressure on her pelvic floor PT-OP-Q Treatments Start: 10/27/21 12:43 Freq: Status: Active Protocol: Document 11/18/21 16:03 [facility] (Rec: 11/18/21 16:55 [facility] [id number]) Therapeutic Exercises Supine Exercises ball squeeze with pelvic floor contraction Reps/Minutes x 10 pelvic floor long holds Reps/Minutes 10 reps holding 10 seconds and relaxing 10 seconds Comments average 10.5 max 24.6 Prone Exercises prone on elbows stretch Reps/Minutes hold 1-2 min Manual Therapy Treatment Soft Tissue Mobilization MFR over the descending colon, rib cage and bladder Body Position Hooklying PT-OP-T Assessment and Plan Start: 10/27/21 12:43 Freq: Status: Active Protocol: Document 11/18/21 16:03 [facility] (Rec: 11/18/21 16:55 [facility] [id number]) Physical Therapy Assessment Assessment Summary Assessment pt has good contraction intensity but endurance is difficult to hold pelvic floor contractions. Gave ball squeeze with pelvic floor contraction to help endurance Physical Therapy Plan Frequency and Duration Frequency of Treatment 1x/Week Plan of Care Start Date 10/27/21 Plan of Care End Date 01/26/22 Therapeutic Interventions Therapeutic Interventions Home Exercise Program,Manual Therapy,Neuromuscular Re- education,Patient/Caregiver Education,Self-Care/Home Management,Therapeutic Exercises Next Visit Focus/Plan Next Note Type Treatment Note Next Visit Plan continue EMG biofeedback for pelvic floor strengthening, diaphragmatic breathing and MFR to open up the fascia around the rib cage and diaphragm.
--- NOTE | 2021-11-18 16:55 | PT.OTN ---
Current Diagnoses Other specified disorders of muscle (11/18/21) Physical Therapy Treatment Note PT-OP-A Visit Information Start: 10/27/21 12:43 Freq: Status: Active Protocol: Document 11/18/21 16:03 [facility] (Rec: 11/18/21 16:55 [facility] [id number]) Out-Patient Physical Therapy Visit Information Visit Information Visit Type Treatment Note Visit Start Time 16:00 Visit Stop Time 16:45 Total Visit Minutes 45 Visit Number 2 PT-OP-B Current Condition Start: 10/27/21 12:43 Freq: Status: Active Protocol: Document 10/27/21 12:44 [facility] (Rec: 10/27/21 13:44 [facility] [id number]) Current Condition History of Current Condition Onset Date 2 months Current Complaints pelvic pressure History of Current Condition pt has newer onset of pelvic organ prolapse symptoms, more of her symptoms occur at night She has a uterine prolapse grade 2. Yaritza pham reports that after walking if her bladder is full she will experience urgency which can cause some leakage prior to sitting down on the toilet She wakes up 2 times at night to void Treatment Goals Patient/Caregiver Goals pt would like to decrease her pelvic pressure and would like to be able to do her walks without pelvic pressure Prior Functional Status Baseline Function- ADL's Independent Baseline Function- Mobility Independent PT-OP-C Subjective Start: 10/27/21 12:43 Freq: Status: Active Protocol: Document 11/18/21 16:03 [facility] (Rec: 11/18/21 16:55 [facility] [id number]) OP-PT Subjective Patient Comments Patient Comments this afternoon she is more fatigued and she feels like things are falling out PT-OP-F Manual Assessment Start: 11/02/21 18:24 Freq: Status: Active Protocol: Document 10/27/21 12:45 [facility] (Rec: 11/02/21 18:25 [facility] [id number]) Manual Assessments Soft Tissue Assessment Soft Tissue Mobility Assessment myofascial tightness of the diaphragm and rib cage mobility is decreased. Pt tends to contract her obliques when attempting a pelvic floor contractions PT-OP-I Pelvic Floor Start: 10/27/21 12:43 Freq: Status: Active Protocol: Document 10/27/21 12:45 [facility] (Rec: 11/02/21 18:24 [facility] [id number]) Pelvic Floor Assessment Urine Pelvic Floor Surgery No Urinary Symptoms Urge Sensation,Prolapse, Falling Out Feeling/Heavy,Pain Leakage Size Small Leakage Cause Cough Nocturia 2 xms Pelvic Clock Pelvic Clock 3-6 Tightness Pelvic Clock 6-9 Tightness Pelvic Clock Other uterine prolapse grade 2 cyctecele grade 1-2 SEMG (uV) Baseline 8.9 10 Second Contraction 17.6 Recruitment Pattern Good Relaxation Fair Holding Good Stability of Hold Good SEMG Stability of Rest Fair Contraction Ability Voluntary Contraction Weak Voluntary Relaxation Weak Manual Muscle Testing Left 4 Manual Muscle Testing Right 4 Manual Muscle Testing Anterior 3 Manual Muscle Testing Posterior 4 Comments Pelvic Floor Comments on EMG biofeedback average is 17.6 uv with max of 34 uv 2nd degree uterine prolapse 1-2 degree bladder propapse PT-OP-J Posture/Palpation/Skin Start: 10/27/21 12:43 Freq: Status: Active Protocol: Document 10/27/21 12:45 [facility] (Rec: 11/02/21 18:24 [facility] [id number]) Palpation Assessment Location abdominal obliques Palpation Findings Soft Tissue Tightness,Muscle Guarding Palpation Details pt tends to guard in her obliques with her scoliosis, this may be causing a downward pressure on her pelvic floor PT-OP-Q Treatments Start: 10/27/21 12:43 Freq: Status: Active Protocol: Document 11/18/21 16:03 [facility] (Rec: 11/18/21 16:55 [facility] [id number]) Therapeutic Exercises Supine Exercises ball squeeze with pelvic floor contraction Reps/Minutes x 10 pelvic floor long holds Reps/Minutes 10 reps holding 10 seconds and relaxing 10 seconds Comments average 10.5 max 24.6 Prone Exercises prone on elbows stretch Reps/Minutes hold 1-2 min Manual Therapy Treatment Soft Tissue Mobilization MFR over the descending colon, rib cage and bladder Body Position Hooklying PT-OP-T Assessment and Plan Start: 10/27/21 12:43 Freq: Status: Active Protocol: Document 11/18/21 16:03 [facility] (Rec: 11/18/21 16:55 [facility] OF [facility] [id number]) Physical Therapy Assessment Assessment Summary Assessment pt has good contraction intensity but endurance is difficult to hold pelvic floor contractions. Gave ball squeeze with pelvic floor contraction to help endurance Physical Therapy Plan Frequency and Duration Frequency of Treatment 1x/Week Plan of Care Start Date 10/27/21 Plan of Care End Date 01/26/22 Therapeutic Interventions Therapeutic Interventions Home Exercise Program,Manual Therapy,Neuromuscular Re- education,Patient/Caregiver Education,Self-Care/Home Management,Therapeutic Exercises Next Visit Focus/Plan Next Note Type Treatment Note Next Visit Plan continue EMG biofeedback for pelvic floor strengthening, diaphragmatic breathing and MFR to open up the fascia around the rib cage and diaphragm.
--- NOTE | 2021-11-24 13:59 | PT.OTN ---
Current Diagnoses Other specified disorders of muscle (11/24/21) Physical Therapy Treatment Note PT-OP-A Visit Information Start: 10/27/21 12:43 Freq: Status: Active Protocol: Document 11/24/21 12:55 [facility] (Rec: 11/24/21 13:59 [facility] [id number]) Out-Patient Physical Therapy Visit Information Visit Information Visit Type Treatment Note Visit Start Time 13:00 Visit Stop Time 13:45 Total Visit Minutes 45 Visit Number 3 PT-OP-B Current Condition Start: 10/27/21 12:43 Freq: Status: Active Protocol: Document 10/27/21 12:44 [facility] (Rec: 10/27/21 13:44 [facility] [id number]) Current Condition History of Current Condition Onset Date 2 months Current Complaints pelvic pressure History of Current Condition pt has newer onset of pelvic organ prolapse symptoms, more of her symptoms occur at night She has a uterine prolapse grade 2. Yaritza pham reports that after walking if her bladder is full she will experience urgency which can cause some leakage prior to sitting down on the toilet She wakes up 2 times at night to void Treatment Goals Patient/Caregiver Goals pt would like to decrease her pelvic pressure and would like to be able to do her walks without pelvic pressure Prior Functional Status Baseline Function- ADL's Independent Baseline Function- Mobility Independent PT-OP-C Subjective Start: 10/27/21 12:43 Freq: Status: Active Protocol: Document 11/24/21 12:55 [facility] (Rec: 11/24/21 13:59 [facility] [id number]) OP-PT Subjective Patient Comments Patient Comments some flare of left side abdomen after eating tomatoes so she has felt tight on the left side, PT-OP-F Manual Assessment Start: 11/02/21 18:24 Freq: Status: Active Protocol: Document 10/27/21 12:45 [facility] (Rec: 11/02/21 18:25 [facility] [id number]) Manual Assessments Soft Tissue Assessment Soft Tissue Mobility Assessment myofascial tightness of the diaphragm and rib cage mobility is decreased. Pt tends to contract her obliques when attempting a pelvic floor contractions PT-OP-I Pelvic Floor Start: 10/27/21 12:43 Freq: Status: Active Protocol: Document 10/27/21 12:45 [facility] (Rec: 11/02/21 18:24 [facility] [id number]) Pelvic Floor Assessment Urine Pelvic Floor Surgery No Urinary Symptoms Urge Sensation,Prolapse, Falling Out Feeling/Heavy,Pain Leakage Size Small Leakage Cause Cough Nocturia 2 xms Pelvic Clock Pelvic Clock 3-6 Tightness Pelvic Clock 6-9 Tightness Pelvic Clock Other uterine prolapse grade 2 cyctecele grade 1-2 SEMG (uV) Baseline 8.9 10 Second Contraction 17.6 Recruitment Pattern Good Relaxation Fair Holding Good Stability of Hold Good SEMG Stability of Rest Fair Contraction Ability Voluntary Contraction Weak Voluntary Relaxation Weak Manual Muscle Testing Left 4 Manual Muscle Testing Right 4 Manual Muscle Testing Anterior 3 Manual Muscle Testing Posterior 4 Comments Pelvic Floor Comments on EMG biofeedback average is 17.6 uv with max of 34 uv 2nd degree uterine prolapse 1-2 degree bladder propapse PT-OP-J Posture/Palpation/Skin Start: 10/27/21 12:43 Freq: Status: Active Protocol: Document 10/27/21 12:45 [facility] (Rec: 11/02/21 18:24 [facility] [id number]) Palpation Assessment Location abdominal obliques Palpation Findings Soft Tissue Tightness,Muscle Guarding Palpation Details pt tends to guard in her obliques with her scoliosis, this may be causing a downward pressure on her pelvic floor PT-OP-Q Treatments Start: 10/27/21 12:43 Freq: Status: Active Protocol: Document 11/24/21 12:55 [facility] (Rec: 11/24/21 13:59 [facility] [id number]) Therapeutic Exercises Supine Exercises diaphragmatic breathing Reps/Minutes inhale x 4, exhale x 6 x 5 reps Comments emphasis to relax the upper abdominal wall pelvic floor long holds Comments HEP Prone Exercises prone over the ball Reps/Minutes hold 1-2 min to stretch over the ball to decrease pelvic pressure Manual Therapy Treatment Soft Tissue Mobilization MFR over the descending colon, rib cage and bladder Body Position Hooklying Comments MFR over the descending colon, bladder mobilizations Self-Care/Home Management Treatment Activities Self-Care/Home Management Activities pt educated in prone over the ball to help with pelvic decompression as well as splinting at the perineum to help with bowel movements PT-OP-T Assessment and Plan Start: 10/27/21 12:43 Freq: Status: Active Protocol: Document 11/24/21 12:55 [facility] (Rec: 11/24/21 13:59 [facility] [id number]) Physical Therapy Assessment Assessment Summary Assessment pt is doing better overall with decreased pressure, she does have a harder time with bowel movements at time and has to bear down so she was educated on splinting from the perineum today to help decrease this pressure Physical Therapy Plan Frequency and Duration Frequency of Treatment 1x/Week Duration of treatment (weeks) 12 Plan of Care Start Date 10/27/21 Plan of Care End Date 01/26/22 Therapeutic Interventions Therapeutic Interventions Home Exercise Program,Manual Therapy,Neuromuscular Re- education,Patient/Caregiver Education,Self-Care/Home Management,Therapeutic Exercises Next Visit Focus/Plan Next Note Type Treatment Note Next Visit Plan continue EMG biofeedback for pelvic floor strengthening, diaphragmatic breathing and MFR to open up the fascia around the rib cage and diaphragm.
--- NOTE | 2021-12-01 13:50 | PT.OTN ---
Current Diagnoses Other specified disorders of muscle (12/01/21) Physical Therapy Treatment Note PT-OP-A Visit Information Start: 10/27/21 12:43 Freq: Status: Active Protocol: Document 12/01/21 12:59 [facility] (Rec: 12/01/21 13:50 [facility] [id number]) Out-Patient Physical Therapy Visit Information Visit Information Visit Type Treatment Note Visit Start Time 13:00 Visit Stop Time 13:45 Total Visit Minutes 45 Visit Number 4 PT-OP-B Current Condition Start: 10/27/21 12:43 Freq: Status: Active Protocol: Document 10/27/21 12:44 [facility] (Rec: 10/27/21 13:44 [facility] [id number]) Current Condition History of Current Condition Onset Date 2 months Current Complaints pelvic pressure History of Current Condition pt has newer onset of pelvic organ prolapse symptoms, more of her symptoms occur at night She has a uterine prolapse grade 2. Yaritza neff reports that after walking if her bladder is full she will experience urgency which can cause some leakage prior to sitting down on the toilet She wakes up 2 times at night to void Treatment Goals Patient/Caregiver Goals pt would like to decrease her pelvic pressure and would like to be able to do her walks without pelvic pressure Prior Functional Status Baseline Function- ADL's Independent Baseline Function- Mobility Independent PT-OP-C Subjective Start: 10/27/21 12:43 Freq: Status: Active Protocol: Document 12/01/21 12:59 [facility] (Rec: 12/01/21 13:50 [facility] [id number]) OP-PT Subjective Patient Comments Patient Comments pt reports if she walks after she eats she feels a lot more pressure, at 4 hours after she has gotten up she will start to feel the pressure. SHe is hoping to get the poise impressa bladder supports. PT-OP-F Manual Assessment Start: 11/02/21 18:24 Freq: Status: Active Protocol: Document 10/27/21 12:45 [facility] (Rec: 11/02/21 18:25 [facility] [id number]) Manual Assessments Soft Tissue Assessment Soft Tissue Mobility Assessment myofascial tightness of the diaphragm and rib cage mobility is decreased. Pt tends to contract her obliques when attempting a pelvic floor contractions PT-OP-I Pelvic Floor Start: 10/27/21 12:43 Freq: Status: Active Protocol: Document 10/27/21 12:45 [facility] (Rec: 11/02/21 18:24 [facility] [id number]) Pelvic Floor Assessment Urine Pelvic Floor Surgery No Urinary Symptoms Urge Sensation,Prolapse, Falling Out Feeling/Heavy,Pain Leakage Size Small Leakage Cause Cough Nocturia 2 xms Pelvic Clock Pelvic Clock 3-6 Tightness Pelvic Clock 6-9 Tightness Pelvic Clock Other uterine prolapse grade 2 cyctecele grade 1-2 SEMG (uV) Baseline 8.9 10 Second Contraction 17.6 Recruitment Pattern Good Relaxation Fair Holding Good Stability of Hold Good SEMG Stability of Rest Fair Contraction Ability Voluntary Contraction Weak Voluntary Relaxation Weak Manual Muscle Testing Left 4 Manual Muscle Testing Right 4 Manual Muscle Testing Anterior 3 Manual Muscle Testing Posterior 4 Comments Pelvic Floor Comments on EMG biofeedback average is 17.6 uv with max of 34 uv 2nd degree uterine prolapse 1-2 degree bladder propapse PT-OP-J Posture/Palpation/Skin Start: 10/27/21 12:43 Freq: Status: Active Protocol: Document 10/27/21 12:45 [facility] (Rec: 11/02/21 18:24 [facility] [id number]) Palpation Assessment Location abdominal obliques Palpation Findings Soft Tissue Tightness,Muscle Guarding Palpation Details pt tends to guard in her obliques with her scoliosis, this may be causing a downward pressure on her pelvic floor PT-OP-Q Treatments Start: 10/27/21 12:43 Freq: Status: Active Protocol: Document 12/01/21 12:59 [facility] (Rec: 12/01/21 13:50 [facility] [id number]) Therapeutic Exercises Supine Exercises quick contractions Equipment Used 10 2 sec on 2 sec off ball squeeze with pelvic floor contraction Reps/Minutes x 10 pelvic floor long holds Comments average 18.3 max 42 Self-Care/Home Management Treatment Education Patient Education Home Exercise Program,Pain Management Other Education pt educated in urge deference technique, bladder retraining, eductated on pessaries and poise impressa bladder supports PT-OP-T Assessment and Plan Start: 10/27/21 12:43 Freq: Status: Active Protocol: Document 12/01/21 12:59 [facility] (Rec: 12/01/21 13:50 [facility] [id number]) Physical Therapy Assessment Assessment Summary Assessment Yaritza Neff may benefit from trying out the poise impressas for bladder supports or trying a pessary. She is doing better with her pelvic floor strength as her average contraction has improved from 10 uv to 18 uv and her max has doubled. Physical Therapy Plan Frequency and Duration Frequency of Treatment 1x/Week Duration of treatment (weeks) 12 Plan of Care Start Date 10/27/21 Plan of Care End Date 01/26/22 Therapeutic Interventions Therapeutic Interventions Home Exercise Program,Manual Therapy,Neuromuscular Re- education,Patient/Caregiver Education,Self-Care/Home Management,Therapeutic Exercises Next Visit Focus/Plan Next Note Type Treatment Note Next Visit Plan continue EMG biofeedback for pelvic floor strengthening, diaphragmatic breathing and MFR to open up the fascia around the rib cage and diaphragm.
--- NOTE | 2021-12-08 09:17 | PT.OTN ---
Current Diagnoses Other specified disorders of muscle (12/07/21) Physical Therapy Treatment Note PT-OP-A Visit Information Start: 10/27/21 12:43 Freq: Status: Active Protocol: Document 12/07/21 11:15 [facility] (Rec: 12/08/21 09:10 [facility] [id number]) Out-Patient Physical Therapy Visit Information Visit Information Visit Type Treatment Note Visit Start Time 11:15 Visit Stop Time 12:00 Total Visit Minutes 45 Visit Number 5 PT-OP-B Current Condition Start: 10/27/21 12:43 Freq: Status: Active Protocol: Document 10/27/21 12:44 [facility] (Rec: 10/27/21 13:44 [facility] [id number]) Current Condition History of Current Condition Onset Date 2 months Current Complaints pelvic pressure History of Current Condition pt has newer onset of pelvic organ prolapse symptoms, more of her symptoms occur at night She has a uterine prolapse grade 2. Yaritza pham reports that after walking if her bladder is full she will experience urgency which can cause some leakage prior to sitting down on the toilet She wakes up 2 times at night to void Treatment Goals Patient/Caregiver Goals pt would like to decrease her pelvic pressure and would like to be able to do her walks without pelvic pressure Prior Functional Status Baseline Function- ADL's Independent Baseline Function- Mobility Independent PT-OP-C Subjective Start: 10/27/21 12:43 Freq: Status: Active Protocol: Document 12/07/21 11:15 [facility] (Rec: 12/07/21 11:57 [facility] [id number]) OP-PT Subjective Patient Comments Patient Comments pt notes she is doing good but then she has days when it feels really dropped, she cant find the impressa supports Patient Reported Progress Improving PT-OP-F Manual Assessment Start: 11/02/21 18:24 Freq: Status: Active Protocol: Document 10/27/21 12:45 [facility] (Rec: 11/02/21 18:25 [facility] [id number]) Manual Assessments Soft Tissue Assessment Soft Tissue Mobility Assessment myofascial tightness of the diaphragm and rib cage mobility is decreased. Pt tends to contract her obliques when attempting a pelvic floor contractions PT-OP-I Pelvic Floor Start: 10/27/21 12:43 Freq: Status: Active Protocol: Document 10/27/21 12:45 [facility] (Rec: 11/02/21 18:24 [facility] [id number]) Pelvic Floor Assessment Urine Pelvic Floor Surgery No Urinary Symptoms Urge Sensation,Prolapse, Falling Out Feeling/Heavy,Pain Leakage Size Small Leakage Cause Cough Nocturia 2 xms Pelvic Clock Pelvic Clock 3-6 Tightness Pelvic Clock 6-9 Tightness Pelvic Clock Other uterine prolapse grade 2 cyctecele grade 1-2 SEMG (uV) Baseline 8.9 10 Second Contraction 17.6 Recruitment Pattern Good Relaxation Fair Holding Good Stability of Hold Good SEMG Stability of Rest Fair Contraction Ability Voluntary Contraction Weak Voluntary Relaxation Weak Manual Muscle Testing Left 4 Manual Muscle Testing Right 4 Manual Muscle Testing Anterior 3 Manual Muscle Testing Posterior 4 Comments Pelvic Floor Comments on EMG biofeedback average is 17.6 uv with max of 34 uv 2nd degree uterine prolapse 1-2 degree bladder propapse PT-OP-J Posture/Palpation/Skin Start: 10/27/21 12:43 Freq: Status: Active Protocol: Document 10/27/21 12:45 [facility] (Rec: 11/02/21 18:24 [facility] [id number]) Palpation Assessment Location abdominal obliques Palpation Findings Soft Tissue Tightness,Muscle Guarding Palpation Details pt tends to guard in her obliques with her scoliosis, this may be causing a downward pressure on her pelvic floor PT-OP-Q Treatments Start: 10/27/21 12:43 Freq: Status: Active Protocol: Document 12/07/21 11:15 [facility] (Rec: 12/07/21 11:57 [facility] [id number]) Therapeutic Exercises Supine Exercises quick contractions Equipment Used 10 2 sec on 2 sec off pelvic floor long holds Reps/Minutes 10 reps holding 10 seconds and relaxing 10 seconds Comments average 25 max 46 Manual Therapy Treatment Soft Tissue Mobilization MFR over the descending colon, rib cage and bladder Body Position Hooklying Comments MFR over the descending colon, bladder mobilizations PT-OP-T Assessment and Plan Start: 10/27/21 12:43 Freq: Status: Active Protocol: Document 12/07/21 11:15 [facility] (Rec: 12/07/21 11:57 [facility] [id number]) Physical Therapy Assessment Assessment Summary Assessment pts strength is showing improvement, she is still waking 2 times per night to void, she will have days where she doesn't feel any pressure and then will experience a day where she feels more of the pelvic pressure and can visualize her bladder. Pt may be a good candidate for pessary or impressa bladder supports if they can be found to purchase Physical Therapy Plan Frequency and Duration Frequency of Treatment 1x/Week Duration of treatment (weeks) 12 Plan of Care Start Date 10/27/21 Plan of Care End Date 01/26/22 Therapeutic Interventions Therapeutic Interventions Home Exercise Program,Manual Therapy,Neuromuscular Re- education,Patient/Caregiver Education,Self-Care/Home Management,Therapeutic Exercises Next Visit Focus/Plan Next Note Type Treatment Note Next Visit Plan continue EMG biofeedback for pelvic floor strengthening, diaphragmatic breathing and MFR to open up the fascia around the rib cage and diaphragm.
--- NOTE | 2021-12-14 12:20 | PT.OTN ---
Current Diagnoses Other specified disorders of muscle (12/14/21) Physical Therapy Treatment Note PT-OP-A Visit Information Start: 10/27/21 12:43 Freq: Status: Active Protocol: Document 12/14/21 12:16 [facility] (Rec: 12/14/21 12:20 [facility] [id number]) Out-Patient Physical Therapy Visit Information Visit Information Visit Type Treatment Note Visit Start Time 11:20 Visit Stop Time 12:05 Total Visit Minutes 45 Visit Number 6 PT-OP-B Current Condition Start: 10/27/21 12:43 Freq: Status: Active Protocol: Document 10/27/21 12:44 [facility] (Rec: 10/27/21 13:44 [facility] [id number]) Current Condition History of Current Condition Onset Date 2 months Current Complaints pelvic pressure History of Current Condition pt has newer onset of pelvic organ prolapse symptoms, more of her symptoms occur at night She has a uterine prolapse grade 2. Yaritza pham reports that after walking if her bladder is full she will experience urgency which can cause some leakage prior to sitting down on the toilet She wakes up 2 times at night to void Treatment Goals Patient/Caregiver Goals pt would like to decrease her pelvic pressure and would like to be able to do her walks without pelvic pressure Prior Functional Status Baseline Function- ADL's Independent Baseline Function- Mobility Independent PT-OP-C Subjective Start: 10/27/21 12:43 Freq: Status: Active Protocol: Document 12/14/21 12:16 [facility] (Rec: 12/14/21 12:20 [facility] [id number]) OP-PT Subjective Patient Comments Patient Comments pt notes she is getting ready to travel, she has been doing better overall with her pelvic floor, still has days when she feels more pressure than others. Her back is bothering her today PT-OP-F Manual Assessment Start: 11/02/21 18:24 Freq: Status: Active Protocol: Document 10/27/21 12:45 [facility] (Rec: 11/02/21 18:25 [facility] [id number]) Manual Assessments Soft Tissue Assessment Soft Tissue Mobility Assessment myofascial tightness of the diaphragm and rib cage mobility is decreased. Pt tends to contract her obliques when attempting a pelvic floor contractions PT-OP-I Pelvic Floor Start: 10/27/21 12:43 Freq: Status: Active Protocol: Document 10/27/21 12:45 [facility] (Rec: 11/02/21 18:24 [facility] [id number]) Pelvic Floor Assessment Urine Pelvic Floor Surgery No Urinary Symptoms Urge Sensation,Prolapse, Falling Out Feeling/Heavy,Pain Leakage Size Small Leakage Cause Cough Nocturia 2 xms Pelvic Clock Pelvic Clock 3-6 Tightness Pelvic Clock 6-9 Tightness Pelvic Clock Other uterine prolapse grade 2 cyctecele grade 1-2 SEMG (uV) Baseline 8.9 10 Second Contraction 17.6 Recruitment Pattern Good Relaxation Fair Holding Good Stability of Hold Good SEMG Stability of Rest Fair Contraction Ability Voluntary Contraction Weak Voluntary Relaxation Weak Manual Muscle Testing Left 4 Manual Muscle Testing Right 4 Manual Muscle Testing Anterior 3 Manual Muscle Testing Posterior 4 Comments Pelvic Floor Comments on EMG biofeedback average is 17.6 uv with max of 34 uv 2nd degree uterine prolapse 1-2 degree bladder propapse PT-OP-J Posture/Palpation/Skin Start: 10/27/21 12:43 Freq: Status: Active Protocol: Document 10/27/21 12:45 [facility] (Rec: 11/02/21 18:24 [facility] [id number]) Palpation Assessment Location abdominal obliques Palpation Findings Soft Tissue Tightness,Muscle Guarding Palpation Details pt tends to guard in her obliques with her scoliosis, this may be causing a downward pressure on her pelvic floor PT-OP-Q Treatments Start: 10/27/21 12:43 Freq: Status: Active Protocol: Document 12/14/21 12:16 [facility] (Rec: 12/14/21 12:20 [facility] [id number]) Manual Therapy Treatment Soft Tissue Mobilization Mobilization over the lumbar paraspinals and right piriformis Body Position prone with body pillow Comments working on decreasing compression for improved ability of pelvic floor contraction MFR over the descending colon, rib cage and bladder Body Position Hooklying Comments MFR right rib cage to encourage full colon mobility PT-OP-T Assessment and Plan Start: 10/27/21 12:43 Freq: Status: Active Protocol: Document 12/14/21 12:16 [facility] (Rec: 12/14/21 12:20 [facility] [id number]) Physical Therapy Assessment Assessment Summary Assessment pt has the poise impressas now and will try them out, she leaves for vacation tomorrow and plans on doing some longer walks when she is gone Physical Therapy Plan Frequency and Duration Frequency of Treatment 1x/Week Duration of treatment (weeks) 12 Plan of Care Start Date 10/27/21 Plan of Care End Date 01/19/22
--- NOTE | 2021-12-22 13:52 | PT.OTN ---
Current Diagnoses Other specified disorders of muscle (12/22/21) Physical Therapy Treatment Note PT-OP-A Visit Information Start: 10/27/21 12:43 Freq: Status: Active Protocol: Document 12/22/21 12:54 [facility] (Rec: 12/22/21 13:39 [facility] [id number]) Out-Patient Physical Therapy Visit Information Visit Information Visit Type Treatment Note Visit Start Time 12:54 Visit Stop Time 12:05 Total Visit Minutes 41 Visit Number 7 PT-OP-B Current Condition Start: 10/27/21 12:43 Freq: Status: Active Protocol: Document 10/27/21 12:44 [facility] (Rec: 10/27/21 13:44 [facility] [id number]) Current Condition History of Current Condition Onset Date 2 months Current Complaints pelvic pressure History of Current Condition pt has newer onset of pelvic organ prolapse symptoms, more of her symptoms occur at night She has a uterine prolapse grade 2. Yaritza pham reports that after walking if her bladder is full she will experience urgency which can cause some leakage prior to sitting down on the toilet She wakes up 2 times at night to void Treatment Goals Patient/Caregiver Goals pt would like to decrease her pelvic pressure and would like to be able to do her walks without pelvic pressure Prior Functional Status Baseline Function- ADL's Independent Baseline Function- Mobility Independent PT-OP-C Subjective Start: 10/27/21 12:43 Freq: Status: Active Protocol: Document 12/22/21 12:54 [facility] (Rec: 12/22/21 13:39 [facility] [id number]) OP-PT Subjective Patient Comments Patient Comments pt notes she did try the impressas bladder supports and feel they helped. She had a small amount of blood on the end of it after leaving it in for 7 hours. She does feel like it gives her more support so she will keep trying it. Patient Reported Progress Improving PT-OP-F Manual Assessment Start: 11/02/21 18:24 Freq: Status: Active Protocol: Document 10/27/21 12:45 [facility] (Rec: 11/02/21 18:25 [facility] [id number]) Manual Assessments Soft Tissue Assessment Soft Tissue Mobility Assessment myofascial tightness of the diaphragm and rib cage mobility is decreased. Pt tends to contract her obliques when attempting a pelvic floor contractions PT-OP-I Pelvic Floor Start: 10/27/21 12:43 Freq: Status: Active Protocol: Document 10/27/21 12:45 [facility] (Rec: 11/02/21 18:24 [facility] [id number]) Pelvic Floor Assessment Urine Pelvic Floor Surgery No Urinary Symptoms Urge Sensation,Prolapse, Falling Out Feeling/Heavy,Pain Leakage Size Small Leakage Cause Cough Nocturia 2 xms Pelvic Clock Pelvic Clock 3-6 Tightness Pelvic Clock 6-9 Tightness Pelvic Clock Other uterine prolapse grade 2 cyctecele grade 1-2 SEMG (uV) Baseline 8.9 10 Second Contraction 17.6 Recruitment Pattern Good Relaxation Fair Holding Good Stability of Hold Good SEMG Stability of Rest Fair Contraction Ability Voluntary Contraction Weak Voluntary Relaxation Weak Manual Muscle Testing Left 4 Manual Muscle Testing Right 4 Manual Muscle Testing Anterior 3 Manual Muscle Testing Posterior 4 Comments Pelvic Floor Comments on EMG biofeedback average is 17.6 uv with max of 34 uv 2nd degree uterine prolapse 1-2 degree bladder propapse PT-OP-J Posture/Palpation/Skin Start: 10/27/21 12:43 Freq: Status: Active Protocol: Document 10/27/21 12:45 [facility] (Rec: 11/02/21 18:24 [facility] [id number]) Palpation Assessment Location abdominal obliques Palpation Findings Soft Tissue Tightness,Muscle Guarding Palpation Details pt tends to guard in her obliques with her scoliosis, this may be causing a downward pressure on her pelvic floor PT-OP-Q Treatments Start: 10/27/21 12:43 Freq: Status: Active Protocol: Document 12/22/21 12:54 [facility] (Rec: 12/22/21 13:39 [facility] [id number]) Therapeutic Exercises Supine Exercises templates for eccentric control Reps/Minutes x 4 quick contractions Reps/Minutes x 10 reps pelvic floor long holds Reps/Minutes 10 sec on 10 sec off Comments average 13.8 and max 32.5 Manual Therapy Treatment Soft Tissue Mobilization Mobilization over the lumbar paraspinals and right piriformis Body Position prone with body pillow Comments working on decreasing compression for improved ability of pelvic floor contraction Self-Care/Home Management Treatment Education Patient Education Home Exercise Program,Pain Management Other Education educated on use of poise impressas as well as education on pessary as a future option . PT-OP-T Assessment and Plan Start: 10/27/21 12:43 Freq: Status: Active Protocol: Document 12/22/21 12:54 [facility] (Rec: 12/22/21 13:52 [facility] [id number]) Physical Therapy Assessment Assessment Summary Assessment Yaritza pham had just gotten home from traveling and only got 4 hours of sleep last night so was more fatigued in her pelvic floor today. Overall she is doing better with her endurance. Bladder supports do help with managing prolapse symptoms and she may be a good candidate for a pessary Physical Therapy Plan Frequency and Duration Frequency of Treatment 1x/Week Duration of treatment (weeks) 12 Plan of Care Start Date 10/27/21 Plan of Care End Date 01/19/22 Therapeutic Interventions Therapeutic Interventions Home Exercise Program,Manual Therapy,Neuromuscular Re- education,Patient/Caregiver Education,Self-Care/Home Management,Therapeutic Exercises Next Visit Focus/Plan Next Note Type Treatment Note Next Visit Plan continue EMG biofeedback for pelvic floor strengthening, diaphragmatic breathing and MFR to open up the fascia around the rib cage and diaphragm.
--- NOTE | 2021-12-29 13:56 | PT.OTN ---
Current Diagnoses Other specified disorders of muscle (12/29/21) Physical Therapy Treatment Note PT-OP-A Visit Information Start: 10/27/21 12:43 Freq: Status: Active Protocol: Document 12/29/21 12:59 [facility] (Rec: 12/29/21 13:55 [facility] [id number]) Out-Patient Physical Therapy Visit Information Visit Information Visit Type Treatment Note Visit Start Time 13:00 Visit Stop Time 13:45 Total Visit Minutes 45 Visit Number 8 PT-OP-B Current Condition Start: 10/27/21 12:43 Freq: Status: Active Protocol: Document 10/27/21 12:44 [facility] (Rec: 10/27/21 13:44 [facility] [id number]) Current Condition History of Current Condition Onset Date 2 months Current Complaints pelvic pressure History of Current Condition pt has newer onset of pelvic organ prolapse symptoms, more of her symptoms occur at night She has a uterine prolapse grade 2. Yaritza neff reports that after walking if her bladder is full she will experience urgency which can cause some leakage prior to sitting down on the toilet She wakes up 2 times at night to void Treatment Goals Patient/Caregiver Goals pt would like to decrease her pelvic pressure and would like to be able to do her walks without pelvic pressure Prior Functional Status Baseline Function- ADL's Independent Baseline Function- Mobility Independent PT-OP-C Subjective Start: 10/27/21 12:43 Freq: Status: Active Protocol: Document 12/29/21 12:59 [facility] (Rec: 12/29/21 13:55 [facility] [id number]) OP-PT Subjective Patient Comments Patient Comments pt feels the poise impressas are helping her, she is feeling better with her HEP and is ready to work at home. PT-OP-F Manual Assessment Start: 11/02/21 18:24 Freq: Status: Active Protocol: Document 10/27/21 12:45 [facility] (Rec: 11/02/21 18:25 [facility] [id number]) Manual Assessments Soft Tissue Assessment Soft Tissue Mobility Assessment myofascial tightness of the diaphragm and rib cage mobility is decreased. Pt tends to contract her obliques when attempting a pelvic floor contractions PT-OP-I Pelvic Floor Start: 10/27/21 12:43 Freq: Status: Active Protocol: Document 10/27/21 12:45 [facility] (Rec: 11/02/21 18:24 [facility] [id number]) Pelvic Floor Assessment Urine Pelvic Floor Surgery No Urinary Symptoms Urge Sensation,Prolapse, Falling Out Feeling/Heavy,Pain Leakage Size Small Leakage Cause Cough Nocturia 2 xms Pelvic Clock Pelvic Clock 3-6 Tightness Pelvic Clock 6-9 Tightness Pelvic Clock Other uterine prolapse grade 2 cyctecele grade 1-2 SEMG (uV) Baseline 8.9 10 Second Contraction 17.6 Recruitment Pattern Good Relaxation Fair Holding Good Stability of Hold Good SEMG Stability of Rest Fair Contraction Ability Voluntary Contraction Weak Voluntary Relaxation Weak Manual Muscle Testing Left 4 Manual Muscle Testing Right 4 Manual Muscle Testing Anterior 3 Manual Muscle Testing Posterior 4 Comments Pelvic Floor Comments on EMG biofeedback average is 17.6 uv with max of 34 uv 2nd degree uterine prolapse 1-2 degree bladder propapse PT-OP-J Posture/Palpation/Skin Start: 10/27/21 12:43 Freq: Status: Active Protocol: Document 10/27/21 12:45 [facility] (Rec: 11/02/21 18:24 [facility] [id number]) Palpation Assessment Location abdominal obliques Palpation Findings Soft Tissue Tightness,Muscle Guarding Palpation Details pt tends to guard in her obliques with her scoliosis, this may be causing a downward pressure on her pelvic floor PT-OP-Q Treatments Start: 10/27/21 12:43 Freq: Status: Active Protocol: Document 12/29/21 12:59 [facility] (Rec: 12/29/21 13:55 [facility] [id number]) Therapeutic Exercises Supine Exercises supine ITB stretch Comments manual ITB stretch Standing Exercises standing side steps Comments pt to do lateral steps in the pool Manual Therapy Treatment Soft Tissue Mobilization ITB MFR in right sidelying Body Position right sidelying PT-OP-T Assessment and Plan Start: 10/27/21 12:43 Freq: Status: Active Protocol: Document 12/29/21 12:59 [facility] (Rec: 12/29/21 13:55 [facility] [id number]) Physical Therapy Assessment Goals myofascial tightness over the diaphragm and ribs Impairment myofascial tightness over the diaphragm and ribs Microbiology Instructor Goal (LTG) improved fascial mobility of the diaphragm and rib cage 12/29/21 good progress and pt working on home stretching routine LTG Duration 12 weeks Decreased strength of the anterior pelvic floor Impairment Decreased strength of the anterior pelvic floor Microbiology Instructor Goal (LTG) Yaritza Neff is able to increase anterior pelvic floor strength with MMT 12/29/21 Good progress LTG Duration 12 weeks pelvic pressure and heaviness Impairment pt reports pelvic pressure and heaviness worse after her walks and at the end of the day Short Term Goal (STG) Yaritza Neff is educated on pelvic organ prolapse and positioning to help relieve symptoms GOAL MET STG Duration 3 weeks Microbiology Instructor Goal (LTG) Yaritza Neff reports a overall reduction in her pelvic organ prolapse symptoms. She is no longer c/o pelvic pain and heaviness following her walks 12/29/21 good progress as symptoms are now intermittent and Yaritza Neff has improved strength as well as is using poise impressa bladder supports which help decrease c /o pelvic heaviness LTG Duration 12 weeks Assessment Summary Assessment Worked on left sided ITB restrictions and encouraged hip exercises in the pool both for the pelvic floor but also for her pelvic alignment as she notes she has been catching her left foot with gait. Her left ITB was restricted and tight today. Exercises were reviewed and Yaritza Neff is Ind with her HEP for her pelvic floor. She will be discharged today Physical Therapy Plan Discharge Physical Therapy Discharge Reasons Patient Request Discharge Comments Yaritza Neff feels that she is able to use the poise impressas and that they help to give some support to her bladder. She is feeling independent with her HEP and is ready to DC
== END 2022-04-12 12:31 | disposition home or self-care (01) ==
LOC: PHYS 12:45
PROVIDERS: Family Provider Family Medicine; PCP Family Medicine; Referring Provider Family Medicine; Visit Provider Family Medicine
DX: M62.89 Other specified disorders of muscle (principal)
CPT/HCPCS: 97110; 97140; 97161; 97535

== ENCOUNTER → 2021-12-29 14:32 | Outpatient (CLI) | payer MEDICARE, OTHER, SELFPAY | PROVIDERS: Family Provider Family Medicine; PCP Family Medicine; Visit Provider Physician Assistant | DX: L52 Erythema nodosum (principal); R21 Rash and other nonspecific skin eruption | CPT/HCPCS: 87070 ==

== ENCOUNTER → 2022-01-01 11:49 | Outpatient (CLI) | payer MEDICARE, OTHER, SELFPAY ==
--- NOTE | 2022-01-01 11:57 | DI.RAD.S_ITS ---
PROCEDURE: XR CHEST 2V INDICATIONS: Erythema nodosum Rash TECHNIQUE: 2 views of the chest were acquired. COMPARISON: None. FINDINGS: Surgical changes and devices: None. Lungs and pleura: Lungs are clear. No pleural effusions or pneumothorax. Mediastinum: Mediastinal contours are normal. Heart size is normal. Bones and chest wall: No suspicious bony abnormalities. Age-appropriate bony degenerative changes are seen. Mild levoconvex thoracolumbar scoliotic curvature is noted. Accentuated thoracic kyphosis is seen. Soft tissues appear unremarkable. IMPRESSION: Clear lungs. Bony degenerative changes with accentuated thoracic kyphosis and levoconvex thoracolumbar scoliosis. Dictated by: Galileo Paulino M.D. on 01/01/2022 at 15:27 Approved by: Galileo Paulino M.D. on 01/01/2022 at 15:28
== END ==
PROVIDERS: Family Provider Family Medicine; PCP Family Medicine; Referring Provider Physician Assistant; Visit Provider Physician Assistant
DX: M40.204 Unspecified kyphosis, thoracic region (principal); L52 Erythema nodosum; R21 Rash and other nonspecific skin eruption; M41.9 Scoliosis, unspecified
CPT/HCPCS: 71046

== ENCOUNTER → 2022-01-03 15:18 | Outpatient (CLI) | payer MEDICARE, OTHER, SELFPAY ==
[2022-01-03 16:15] LABS: Add Manual Diff / Slide Review NO; Basophils Absolute Auto 100 /uL (0-100); Basophils Percent Auto 0.8 % (0-2); Eosinophils Absolute Auto 200 /uL (0-450); Eosinophils Percent Auto 2.7 % (2-4); Hematocrit 36.7 % (36-46); Hemoglobin 12.5 g/dL (12.0-16.0); Lymphocytes Absolute Auto 2300 /uL (1100-4500); Lymphocytes Percent Auto 32.3 % (25-40); Mean Corpuscular HGB Conc 34.1 % (30-36); Mean Corpuscular Hemoglobin 30.5 PG (26-34); Mean Corpuscular Volume 89.4 fL (80-100); Monocytes Absolute Auto 500 /uL (0-900); Monocytes Percent Auto 7.4 % (3-14); Neutrophils Absolute Auto 4000 /uL (1500-7000); Neutrophils Percent Auto 56.8 % (50-75); Platelet Count 247 X10^3/uL (150-400); Red Blood Cell Count 4.11 X10^6/uL (4.0-5.2); Red Cell Distribution Width 13.1 % (11.6-14.8)
[2022-01-03 16:31] LABS: Alanine Aminotransferase 19 IU/L (<35); Albumin 4.3 g/dL (3.5-5.0); Albumin Globulin Ratio 1.3 (1.0-2.8); Alkaline Phosphatase 85 U/L (38-126); Aspartate Aminotransferase 25 IU/L (14-36); BUN Creatinine Ratio 29.9 (6-22); Bilirubin Total 0.1 mg/dL (0.2-1.3); Blood Urea Nitrogen 20 mg/dL (7-17); C-Reactive Protein Quant < 0.5 mg/dL (<1.0); Calcium 8.8 mg/dL (8.4-10.2); Carbon Dioxide 28 mmol/L (22-32); Chloride 97 mmol/L (98-107); Estimated Glomerular Filt Rate > 60 mL/min (>60); Globulin 3.4 g/dL (1.7-4.1); Glucose 108 mg/dL (80-110); HEMOLYSIS < 15 (0-50); Potassium 3.9 mmol/L (3.4-5.1); Sodium 135 mmol/L (137-145); Total Protein 7.7 g/dL (6.3-8.2)
[2022-01-03 16:47] LABS: Erythrocyte Sedimentation Rate 12 MM/HR (0-20)
[2022-01-03 18:09] LABS: Appearance Urine UA CLEAR; Bilirubin Urine UA NEGATIVE (NEGATIVE); Color Urine UA YELLOW; Glucose Urine UA NEGATIVE (Negative); Ketones Urine UA NEGATIVE (NEGATIVE); Leukocyte Esterase Urine UA NEGATIVE (NEGATIVE); Nitrite Urine UA NEGATIVE (Negative); Occult Blood Urine UA NEGATIVE (Negative); Protein Urine UA NEGATIVE (Negative); Specific Gravity Urine UA 1.015 (1.000-1.035); Urobilinogen Urine UA 0.2 E.U./dL (0.2)
[2022-01-03 18:29] LABS: Bacteria Urine None Seen; Culture Indicated Urine Cult Not Indicated; RBC Urine None Seen (0-5/HPF); WBC Urine None Seen (0-5/HPF)
== END ==
PROVIDERS: Family Provider Family Medicine; PCP Family Medicine; Referring Provider Physician Assistant; Visit Provider Physician Assistant
DX: L81.8 Other specified disorders of pigmentation (principal)
CPT/HCPCS: 80053; 81001; 85025; 85651; 86140

== ENCOUNTER → 2022-02-05 08:06 | Outpatient (CLI) | payer MEDICARE, OTHER, SELFPAY ==
[2022-02-05 10:46] LABS: BUN Creatinine Ratio 24.1 (6-22); Blood Urea Nitrogen 13 mg/dL (7-17); Calcium 8.7 mg/dL (8.4-10.2); Carbon Dioxide 27 mmol/L (22-32); Chloride 95 mmol/L (98-107); Cholesterol 305 mg/dL (140-199); Estimated Glomerular Filt Rate > 60 mL/min (>60); Glucose 96 mg/dL (80-110); HDL Cholesterol 80 mg/dL (40-60); HEMOLYSIS < 15 (0-50); LDL Cholesterol Calculated 207 mg/dL (<100); Potassium 4.1 mmol/L (3.4-5.1); Sodium 129 mmol/L (137-145); Triglycerides 92 mg/dL (35-150)
[2022-02-05 11:05] LABS: HEMOLYSIS < 15 (0-50); Iron 137 ug/dL (37-170)
[2022-02-05 11:16] LABS: Percent Iron Saturation 36 % (15-50); Total Iron Binding Capacity 377 ug/dL (265-497)
[2022-02-05 11:20] LABS: Transferrin 316 mg/dL (206-381)
[2022-02-05 11:39] LABS: TSH w/ Reflex to FT4 1.16 uIU/mL (0.47-4.68)
[2022-02-07 08:08] LABS: Interpretation Negative (Negative)
== END ==
PROVIDERS: Family Provider Family Medicine; PCP Family Medicine; Referring Provider Physician Assistant; Visit Provider Physician Assistant
DX: L52 Erythema nodosum (principal); R79.89 Other specified abnormal findings of blood chemistry; E78.2 Mixed hyperlipidemia; E03.9 Hypothyroidism, unspecified; I10 Essential (primary) hypertension; D64.9 Anemia, unspecified; R03.0 Elevated blood-pressure reading, without diagnosis of hypertension
CPT/HCPCS: 36415; 80048; 80061; 83013; 83036; 83540; 83550; 84443

== ENCOUNTER → 2022-06-13 15:40 | Outpatient (CLI) | payer MEDICARE, OTHER, SELFPAY ==
--- NOTE | 2022-06-13 | DI.MG.S_ITS ---
BILATERAL DIGITAL SCREENING MAMMOGRAM 3D/2D WITH CAD: 06/13/2022 CLINICAL: Routine screening. Comparison is made to exams dated: 06/08/2021 mammogram, 03/06/2020 mammogram, and 02/02/2016 mammogram - [facility]. There are scattered areas of fibroglandular density in both breasts (category b / 25%-50% glandular tissue). Current study was also evaluated with a Computer Aided Detection (CAD) system. There is a possible developing asymmetry in the left breast middle depth superior region seen on the mediolateral oblique view only. This is more prominent and increased in size. No other significant masses, calcifications, or other findings are seen in either breast. IMPRESSION: INCOMPLETE: NEEDS ADDITIONAL IMAGING EVALUATION The possible developing asymmetry in the left breast is indeterminate. Additional views with possible ultrasound are recommended. Based on the Tyrer Cuzick model (a risk assessment model) the patient's lifetime risk is 3.9% and her 10 year risk is 3.9%. According to the ACR, ACS, and NCCN guidelines, an annual breast MRI exam along with mammogram is recommended if the patient's lifetime risk is 20% or greater. This exam was interpreted at Station ID: [id number]. NOTE: For mammograms, a report in lay terms will be sent to the patient. Approximately 15% of breast malignancies will not be visualized mammographically. In the management of a palpable breast mass, a negative mammogram must not discourage biopsy of a clinically suspicious lesion. Electronically Signed By: Margarito taylor/eric:06/14/2022 09:38:00 letter sent: Additional Imaging Needed ACR BI-RADS Category 0: Incomplete 3340F
== END ==
PROVIDERS: Family Provider Family Medicine; PCP Family Medicine; Referring Provider Family Medicine; Visit Provider Family Medicine
DX: Z12.31 Encounter for screening mammogram for malignant neoplasm of breast (principal)
CPT/HCPCS: 77063; 77067

== ENCOUNTER → 2022-06-25 07:35 | Outpatient (CLI) | payer MEDICARE, OTHER, SELFPAY ==
[2022-06-25 08:36] LABS: Hematocrit 38.4 % (36-46); Hemoglobin 13.1 g/dL (12.0-16.0); Mean Corpuscular HGB Conc 34.1 % (30-36); Mean Corpuscular Hemoglobin 30.6 PG (26-34); Mean Corpuscular Volume 89.6 fL (80-100); Platelet Count 229 X10^3/uL (150-400); Red Blood Cell Count 4.29 X10^6/uL (4.0-5.2); Red Cell Distribution Width 13.4 % (11.6-14.8); White Blood Cell Count 5.7 X10^3/uL (4.5-11.0)
[2022-06-25 09:10] LABS: BUN Creatinine Ratio 32.7 (6-22); Blood Urea Nitrogen 18 mg/dL (7-17); Calcium 8.6 mg/dL (8.4-10.2); Carbon Dioxide 29 mmol/L (22-32); Chloride 96 mmol/L (98-107); Cholesterol 309 mg/dL (140-199); Estimated Glomerular Filt Rate > 60 mL/min (>60); Glucose 98 mg/dL (80-110); HDL Cholesterol 89 mg/dL (40-60); HEMOLYSIS < 15 (0-50); LDL Cholesterol Calculated 205 mg/dL (<100); Potassium 4.3 mmol/L (3.4-5.1); Sodium 133 mmol/L (137-145); Triglycerides 74 mg/dL (35-150)
[2022-06-25 09:34] LABS: TSH w/ Reflex to FT4 1.15 uIU/mL (0.47-4.68)
[2022-06-26 10:38] LABS: Varicella IgG Antibody >4000 index (Immune >165)
== END ==
PROVIDERS: Family Provider Family Medicine; PCP Family Medicine; Referring Provider Physician Assistant; Visit Provider Physician Assistant
DX: D64.9 Anemia, unspecified (principal); E03.9 Hypothyroidism, unspecified; E78.5 Hyperlipidemia, unspecified; Z20.820 Contact with and (suspected) exposure to varicella; E87.1 Hypo-osmolality and hyponatremia
CPT/HCPCS: 36415; 80048; 80061; 84443; 85027; 86787

== ENCOUNTER → 2022-07-01 13:28 | Outpatient (CLI) | payer MEDICARE, OTHER, SELFPAY ==
--- NOTE | 2022-07-01 | DI.US.S_ITS ---
ULTRASOUND OF LEFT BREAST: 07/01/2022 CLINICAL: Patient returns today to evaluate a focal asymmetry in the left breast. Comparison is made to exams dated: 07/01/2022 mammogram, 06/13/2022 mammogram, 02/02/2016 mammogram, 06/08/2021 mammogram, 03/06/2020 mammogram, and 09/01/2007 mammogram - [facility]. Ultrasound of the left breast was performed. Majano scale images of the real-time examination were reviewed. No significant abnormalities were seen sonographically in the left breast. Specifically, no finding to correspond to the patient's resolved screening mammographic abnormality. IMPRESSION: NEGATIVE There is no sonographic correlate to the patient's resolved screening mammogram abnormality and no evidence of malignancy. Return to annual mammogram screening schedule is recommended. Findings and recommendations were conveyed to the patient at time of exam. This exam was interpreted at Station ID: [id number]. Electronically Signed By: Agnieszka clay/:07/01/2022 14:51:50 letter sent: Normal Exam Ultrasound BI-RADS: 1 Negative
--- NOTE | 2022-07-01 | DI.MG.S_ITS ---
UNILATERAL LEFT DIGITAL DIAGNOSTIC MAMMOGRAM 3D/2D WITH ADDITIONAL VIEWS: 07/01/2022 CLINICAL: Additional evaluation requested from prior study. Comparison is made to exams dated: 06/13/2022 mammogram, 06/08/2021 mammogram, and 03/06/2020 mammogram - [facility]. There are scattered areas of fibroglandular density in the left breast (category b / 25%-50% glandular tissue). The possible developing asymmetry in the left breast middle depth superior region seen on the mediolateral oblique view only is no longer seen and is consistent with fibroglandular tissue. This is not seen in additional views. No other significant masses or calcifications are seen in the breast. IMPRESSION: INCOMPLETE: NEEDS ADDITIONAL IMAGING EVALUATION Resolution of screening mammography abnormality with additional views. Ultrasound evaluation to confirm resolution is recommended and was performed immediately following this exam. Based on the Tyrer Cuzick model (a risk assessment model) the patient's lifetime risk is 3.9% and her 10 year risk is 3.9%. According to the ACR, ACS, and NCCN guidelines, an annual breast MRI exam along with mammogram is recommended if the patient's lifetime risk is 20% or greater. This exam was interpreted at Station ID: [id number]. NOTE: For mammograms, a report in lay terms will be sent to the patient. Approximately 15% of breast malignancies will not be visualized mammographically. In the management of a palpable breast mass, a negative mammogram must not discourage biopsy of a clinically suspicious lesion. Electronically Signed By: Agnieszka clay/:07/01/2022 14:49:47 ACR BI-RADS Category 0: Incomplete 3340F
== END ==
PROVIDERS: Family Provider Family Medicine; PCP Family Medicine; Referring Provider Family Medicine; Visit Provider Family Medicine
DX: R92.8 Other abnormal and inconclusive findings on diagnostic imaging of breast (principal)
CPT/HCPCS: 76642; 77065; G0279

== ENCOUNTER → 2022-10-20 15:39 | Outpatient (CLI) | payer MEDICARE, OTHER, SELFPAY ==
--- NOTE | 2022-10-20 15:40 | DI.CT.S_ITS ---
PROCEDURE: CT CHEST WO CON INDICATIONS: Airspace opacity inferior RUL seen on CT TECHNIQUE: Noncontrast 5 mm thick sections acquired from the pulmonary apices to the posterior costophrenic angles. 1 mm lung window, 5 mm thick coronal and sagittal and 7 mm axial MIP reformats were then acquired. For radiation dose reduction, the following was used: automated exposure control, adjustment of mA and/or kV according to patient size. COMPARISON: [facility], RG, CT CALCIUM SCORING, 06/29/2022, 10:41. FINDINGS: Image quality: Excellent. Lungs and pleura: Focal airspace opacities are present within the anterior inferior aspect of the right upper lobe. These have decreased in extent when compared with the prior CT dated June 29, 2022; however have not entirely resolved. There is a 5 mm pulmonary nodule within the posterior right lower lobe that is unchanged from the prior study (series 3/image 169). No new airspace opacities. Apical scarring is present bilaterally. No pleural effusion or pneumothorax. Mediastinum: Heart size is normal. No pericardial effusion. No mediastinal adenopathy by size criteria. Thoracic aorta and central pulmonary arteries are normal in size. Esophagus is normal in caliber. No hiatal hernia. Bones and chest wall: No suspicious bony lesions. No vertebral body compression fractures. No axillary or supraclavicular adenopathy by size criteria. Thyroid gland is unremarkable . Abdomen: Visualized upper abdominal solid organs and bowel loops appear normal in the absence of contrast. IMPRESSION: 1. Decreased right upper lobe airspace opacities as above. Continued follow-up to resolution recommended. Consider 3-6 month follow-up. Dictated by: Lina Galvez M.D. on 11/01/2022 at 13:45 Approved by: Lina Galvez M.D. on 11/01/2022 at 13:52
== END ==
PROVIDERS: Family Provider Family Medicine; PCP Family Medicine; Referring Provider Physician Assistant; Visit Provider Physician Assistant
DX: R91.8 Other nonspecific abnormal finding of lung field (principal)
CPT/HCPCS: 71250

== ENCOUNTER 2022-11-16 08:00 | Outpatient (RCR) | payer MEDICARE, OTHER, SELFPAY ==
--- NOTE | 2022-07-20 13:30 | PT.OPPOC ---
Physical, Occupational & Speech Therapy At [facility] Current Diagnoses Scoliosis, unspecified (07/20/22) Low back pain, unspecified (07/20/22) Visit Care Team Role Provider Type Lan Gomes MD Attending Provider Physician Family Provider Primary Care Provider Referring Provider Specialty: Family Practice Address: [address] [place] [address], [facility] Email: [email or web address] Plan Of Care PT-OP-T Assessment and Plan Start: 07/20/22 12:25 Freq: Status: Active Protocol: Document 07/20/22 12:15 [facility] (Rec: 07/26/22 09:44 [facility] [id number]) Physical Therapy Assessment Rehab Potential Rehabilitation Potential Excellent Evaluation Complexity Number of Personal Factors/Comorbidities 0 Number of Body Systems Impaired 1-2 Clinical Presentation at Evaluation Stable Impairments Impairments Activity Tolerance,Functional Mobility,Gait,Pain,ROM,Soft Tissue Mobility,Strength Goals Three Impairment Myofascial tightness and guarding in the lumbar paraspinals L>R and thoracic paraspinals R>L with scoliosis creating increased back pain Thread Dresser Goal (LTG) Pt is educated on a home stretching program for her low back and combined with manual therapy treatment she presents with decreased muscle guarding and spasm overall LTG Duration 12 weeks Two Impairment Weakness of the core and lateral hip stabilizers Short Term Goal (STG) Yaritza Neff is educated on a HEP for lateral hip stabilization and core stabilization STG Duration 4 weeks Thread Dresser Goal (LTG) Improve strength of the core and lateral hip stabilizers by 1 muscle grade LTG Duration 12 weeks One Impairment Yaritza Neff reports quite a bit of difficulty with her usual activities and is unable to walk a mile for her exercise at this time due to pain. Her LEFS is 46 % Thread Dresser Goal (LTG) Yaritza neff reports improved ability to walk and is able to return to walking a mile and perform functional activites and her LEFS is improved by 10 points. LTG Duration 12 weeks Assessment Summary Assessment Yaritza Neff is a 77 year old female with scoliosis and chronic intermittent back pain . She works very hard on her stretching program and swimming 3-4 times weekly. Despite her efforts she can easily reaggravate her back. At this point she describes left lateral back pain and left sided ITB pain. She c/o pain into the left knee especially with stairs and walking. She presents with weakness of the lateral hips contributing to ITB tightness. She is guarded and tight in the lumbar paraspinals and right thoracic paraspinals, left piriformis. Yaritza Neff is a good candidate for PT Physical Therapy Plan Frequency and Duration Frequency of Treatment 2x/Week Duration of treatment (weeks) 12 Plan of Care Start Date 07/20/22 Plan of Care End Date 10/12/22 Therapeutic Interventions Therapeutic Interventions Home Exercise Program,Joint Mobilizations,Manual Therapy, Patient/Caregiver Education, Self-Care/Home Management,Soft Tissue Mobilization, Therapeutic Exercises Next Visit Focus/Plan Next Note Type Treatment Note Next Visit Plan work on ITB stretching, stabilization exercises for the core and lateral hips Plan of Care Dates Plan of Care Start Date 07/20/22 Plan of Care End Date 10/12/22 Electronically Signed by: Danya Blanco, PT 07/26/22 [id number] If you are in agreement with this Plan of Care, please return a signed and dated copy. I have reviewed this Plan of Care and certify that the skilled therapy services above are required to meet the patient?s needs. Physician Signature Date Printed Name and Credentials Clinical Instructor Signature Printed Name and Credentials
--- NOTE | 2022-07-20 13:30 | PT.OIE ---
Current Diagnoses Scoliosis, unspecified (07/20/22) Low back pain, unspecified (07/20/22) Past Medical History (Last Updated 12/29/21 @ 13:53 by Nida Mcbride MA) Abnormal Pap smear of cervix (1988) Acquired hypothyroidism (2011) Anemia (1986) Chicken pox (1953) Chronic back pain (1986) Colitis (1971) CTS (carpal tunnel syndrome) (1989) Diverticular disease (2005) Erythema nodosum (~05/27/21) Gastroesophageal reflux disease (11/26/10) HPV (human papilloma virus) infection (2007) Hyperlipidemia Lumbar spine pain Measles (1953) Osteopenia (2011) Scoliosis (1986) Past Surgical History (Last Reviewed 09/27/17 @ 11:46 by Sonal Sanchez LPN) Anesthesia History of bilateral salpingo-oophorectomy (BSO) History of left oophorectomy (1988) Status post bunionectomy (2007) Status post bunionectomy (2013) Status post tonsillectomy and adenoidectomy (1953) Visit Care Team Role Provider Type Lan Gomes MD Attending Provider Physician Family Provider Primary Care Provider Referring Provider Specialty: [facility] Practice Address: [address] [place] [address] Email: [email or web address] Physical Therapy Initial Evaluation PT-OP-A Visit Information Start: 07/20/22 12:25 Freq: Status: Active Protocol: Document 07/20/22 12:15 [facility] (Rec: 07/20/22 14:10 [facility] [id number]) Out-Patient Physical Therapy Visit Information Visit Information Visit Type Initial Evaluation Visit Start Time 12:15 Visit Stop Time 13:00 Total Visit Minutes 45 Visit Number 1 Evaluation Information Evaluation Date 07/20/22 PT-OP-B Current Condition Start: 07/20/22 12:25 Freq: Status: Active Protocol: Document 07/20/22 12:15 [facility] (Rec: 07/20/22 14:10 [facility] [id number]) Current Condition History of Current Condition Onset Date May 2022 Current Complaints new onset of knee pain History of Current Condition history of back pain that comes and goes and right sided thoracic pain and medial scapula pain May 30 the left knee started bugging her she has kept swimming and her left leg is getting tight in the joint, the pain moves from the medial knee to the lateral knee she also c/o right sided medial knee pain PT-OP-C Subjective Start: 07/20/22 12:25 Freq: Status: Active Protocol: Document 07/20/22 12:15 [facility] (Rec: 07/26/22 11:50 [facility] [id number]) Patient Questionnaires Lower Extremity Functional Scale LEFS Score 46 LEFS Impairment 40 to 59% Impaired (Score 32- 47) OP-PT Pain Assessment Location left lateral knee Intensity 4 Scale Used Numeric (0 - 10) lateral low back Intensity 3 Scale Used Numeric (0 - 10) Description Aching PT-OP-F Manual Assessment Start: 07/20/22 12:25 Freq: Status: Active Protocol: Document 07/20/22 12:15 [facility] (Rec: 07/26/22 09:36 [facility] [id number]) Manual Assessments Soft Tissue Assessment Soft Tissue Mobility Assessment tightness of the left ITB with tightness at the distal attachments B piriformis tightness low back paraspinal tightness L>R and thoracic paraspinal tightness R Joint Mobility Assessment Joint Mobility Assessment hypomobility in the thoracic spine T4-T10 with scoliosis curve Other Manual Assessments Other Manual Assessments pt with scoliosis with curve to the right PT-OP-J Posture/Palpation/Skin Start: 07/20/22 12:25 Freq: Status: Active Protocol: Document 07/20/22 12:15 [facility] (Rec: 07/26/22 09:36 [facility] [id number]) Palpation Assessment Location left ITB distal attachment Palpation Findings Soft Tissue Tightness,Muscle Guarding PT-OP-K Range of Motion Start: 07/20/22 12:25 Freq: Status: Active Protocol: Document 07/20/22 12:15 [facility] (Rec: 07/26/22 09:36 [facility] [id number]) Lumbar Spine Range of Motion Lumbar Spine Active Testing Position Standing Lateral Flexion Left 10 Lateral Flexion Right 8 ROM Limitations Soft Tissue Tightness,Pain PT-OP-M Strength Start: 07/20/22 12:25 Freq: Status: Active Protocol: Document 07/20/22 12:15 [facility] (Rec: 07/26/22 09:37 [facility] [id number]) Trunk Strength Trunk Manual Muscle Testing Testing Position Supine Flexion 3 Fair Hip Strength Hip Manual Muscle Testing Right Abduction 3+ Fair+ External Rotation 3+ Fair+ Left Abduction 3+ Fair+ External Rotation 3+ Fair+ PT-OP-Q Treatments Start: 07/20/22 12:25 Freq: Status: Active Protocol: Document 07/20/22 12:15 [facility] (Rec: 07/20/22 14:12 [facility] [id number]) Manual Therapy Treatment Manual Techniques sidelying left quad stretch Body Location left quad stretch Body Position Sidelying Reps/Duration hold 1 min manual ITB stretch Body Location left ITB Body Position Hooklying Reps/Duration hold 1-2 min Comments supine with hip flexed with straight knee then crossing the body PT-OP-T Assessment and Plan Start: 07/20/22 12:25 Freq: Status: Active Protocol: Document 07/20/22 12:15 [facility] (Rec: 07/26/22 09:44 [facility] [id number]) Physical Therapy Assessment Rehab Potential Rehabilitation Potential Excellent Evaluation Complexity Number of Personal Factors/Comorbidities 0 Number of Body Systems Impaired 1-2 Clinical Presentation at Evaluation Stable Impairments Impairments Activity Tolerance,Functional Mobility,Gait,Pain,ROM,Soft Tissue Mobility,Strength Goals Three Impairment Myofascial tightness and guarding in the lumbar paraspinals L>R and thoracic paraspinals R>L with scoliosis creating increased back pain [employer] Goal (LTG) Pt is educated on a home stretching program for her low back and combined with manual therapy treatment she presents with decreased muscle guarding and spasm overall LTG Duration 12 weeks Two Impairment Weakness of the core and lateral hip stabilizers Short Term Goal (STG) Yaritza Pham is educated on a HEP for lateral hip stabilization and core stabilization STG Duration 4 weeks Retirement Goal (LTG) Improve strength of the core and lateral hip stabilizers by 1 muscle grade LTG Duration 12 weeks One Impairment Yaritza Pham reports quite a bit of difficulty with her usual activities and is unable to walk a mile for her exercise at this time due to pain. Her LEFS is 46 % [employer] Goal (LTG) Yaritza pham reports improved ability to walk and is able to return to walking a mile and perform functional activites and her LEFS is improved by 10 points. LTG Duration 12 weeks Assessment Summary Assessment Yaritza Pham is a 77 year old female with scoliosis and chronic intermittent back pain . She works very hard on her stretching program and swimming 3-4 times weekly. Despite her efforts she can easily reaggravate her back. At this point she describes left lateral back pain and left sided ITB pain. She c/o pain into the left knee especially with stairs and walking. She presents with weakness of the lateral hips contributing to ITB tightness. She is guarded and tight in the lumbar paraspinals and right thoracic paraspinals, left piriformis. Yaritza Pham is a good candidate for PT Physical Therapy Plan Frequency and Duration Frequency of Treatment 2x/Week Duration of treatment (weeks) 12 Plan of Care Start Date 07/20/22 Plan of Care End Date 10/12/22 Therapeutic Interventions Therapeutic Interventions Home Exercise Program,Joint Mobilizations,Manual Therapy, Patient/Caregiver Education, Self-Care/Home Management,Soft Tissue Mobilization, Therapeutic Exercises Next Visit Focus/Plan Next Note Type Treatment Note Next Visit Plan work on ITB stretching, stabilization exercises for the core and lateral hips
--- NOTE | 2022-08-04 16:45 | PT.OTN ---
Current Diagnoses Scoliosis, unspecified (08/04/22) Low back pain, unspecified (08/04/22) Physical Therapy Treatment Note PT-OP-A Visit Information Start: 07/20/22 12:25 Freq: Status: Active Protocol: Document 08/04/22 13:33 [facility] (Rec: 08/04/22 14:18 [facility] [id number]) Out-Patient Physical Therapy Visit Information Visit Information Visit Type Treatment Note Visit Start Time 13:30 Visit Stop Time 14:15 Total Visit Minutes 45 Visit Number 2 PT-OP-B Current Condition Start: 07/20/22 12:25 Freq: Status: Active Protocol: Document 07/20/22 12:15 [facility] (Rec: 07/20/22 14:10 [facility] [id number]) Current Condition History of Current Condition Onset Date May 2022 Current Complaints new onset of knee pain History of Current Condition history of back pain that comes and goes and right sided thoracic pain and medial scapula pain May 30 the left knee started bugging her she has kept swimming and her left leg is getting tight in the joint, the pain moves from the medial knee to the lateral knee she also c/o right sided medial knee pain PT-OP-C Subjective Start: 07/20/22 12:25 Freq: Status: Active Protocol: Document 08/04/22 13:33 [facility] (Rec: 08/04/22 14:18 [facility] [id number]) OP-PT Subjective Patient Comments Patient Comments Nasra Neff notes her knee is improving. She wants to buy a used bike. She has been using the theraband for hip abduction. She is walking 40 min every day she will start to feel pressure on either side of the joint line. The pain moves PT-OP-F Manual Assessment Start: 07/20/22 12:25 Freq: Status: Active Protocol: Document 07/20/22 12:15 [facility] (Rec: 07/26/22 09:36 [facility] [id number]) Manual Assessments Soft Tissue Assessment Soft Tissue Mobility Assessment tightness of the left ITB with tightness at the distal attachments B piriformis tightness low back paraspinal tightness L>R and thoracic paraspinal tightness R Joint Mobility Assessment Joint Mobility Assessment hypomobility in the thoracic spine T4-T10 with scoliosis curve Other Manual Assessments Other Manual Assessments pt with scoliosis with curve to the right PT-OP-J Posture/Palpation/Skin Start: 07/20/22 12:25 Freq: Status: Active Protocol: Document 07/20/22 12:15 [facility] (Rec: 07/26/22 09:36 [facility] [id number]) Palpation Assessment Location left ITB distal attachment Palpation Findings Soft Tissue Tightness,Muscle Guarding PT-OP-K Range of Motion Start: 07/20/22 12:25 Freq: Status: Active Protocol: Document 07/20/22 12:15 [facility] (Rec: 07/26/22 09:36 [facility] [id number]) Lumbar Spine Range of Motion Lumbar Spine Active Testing Position Standing Lateral Flexion Left 10 Lateral Flexion Right 8 ROM Limitations Soft Tissue Tightness,Pain PT-OP-M Strength Start: 07/20/22 12:25 Freq: Status: Active Protocol: Document 07/20/22 12:15 [facility] (Rec: 07/26/22 09:37 [facility] [id number]) Trunk Strength Trunk Manual Muscle Testing Testing Position Supine Flexion 3 Fair Hip Strength Hip Manual Muscle Testing Right Abduction 3+ Fair+ External Rotation 3+ Fair+ Left Abduction 3+ Fair+ External Rotation 3+ Fair+ PT-OP-Q Treatments Start: 07/20/22 12:25 Freq: Status: Active Protocol: Document 08/04/22 13:33 [facility] (Rec: 08/04/22 14:18 [facility] [id number]) Cardio Equipment Bicycle (Upright) Duration (Minutes) 5 Resistance 3 Seat Position 3 Therapeutic Exercises Supine Exercises single knee to chest Reps/Minutes 2 x 30 sec ITB stretch Reps/Minutes hold 1-2 min Sitting Exercises seated hip rollouts with theraband Sitting Exercise Name HEP Manual Therapy Treatment Soft Tissue Mobilization ITB MFR on the left leg Mobilization Type Myofascial Release Body Position Supine Comments distal attachment tightness of the ITB PT-OP-T Assessment and Plan Start: 07/20/22 12:25 Freq: Status: Active Protocol: Document 08/04/22 13:30 [facility] (Rec: 08/09/22 13:32 [facility] [id number]) Physical Therapy Assessment Assessment Summary Assessment nasra Neff tolerated the upright bike well today. I began working on MFR over the ITB. She has been working on her stretching and side steps in the pool and feels it is a little better. Physical Therapy Plan Frequency and Duration Frequency of Treatment 2x/Week Duration of treatment (weeks) 12 Plan of Care Start Date 07/20/22 Plan of Care End Date 10/12/22 Therapeutic Interventions Therapeutic Interventions Home Exercise Program,Joint Mobilizations,Manual Therapy, Patient/Caregiver Education, Self-Care/Home Management,Soft Tissue Mobilization, Therapeutic Exercises Next Visit Focus/Plan Next Note Type Treatment Note Next Visit Plan warm up on the bike, work on ITB stretching, stabilization exercises for the core and lateral hips, manual therapy techniques for the ITB
--- NOTE | 2022-09-13 16:23 | PT.OTN ---
Current Diagnoses Scoliosis, unspecified (09/13/22) Low back pain, unspecified (09/13/22) Physical Therapy Treatment Note PT-OP-A Visit Information Start: 07/20/22 12:25 Freq: Status: Active Protocol: Document 09/13/22 10:50 [facility] (Rec: 09/13/22 11:32 [facility] [id number]) Out-Patient Physical Therapy Visit Information Visit Information Visit Type Progress Note Visit Start Time 10:50 Visit Stop Time 11:30 Total Visit Minutes 40 Visit Number 3 PT-OP-B Current Condition Start: 07/20/22 12:25 Freq: Status: Active Protocol: Document 07/20/22 12:15 [facility] (Rec: 07/20/22 14:10 [facility] [id number]) Current Condition History of Current Condition Onset Date May 2022 Current Complaints new onset of knee pain History of Current Condition history of back pain that comes and goes and right sided thoracic pain and medial scapula pain May 30 the left knee started bugging her she has kept swimming and her left leg is getting tight in the joint, the pain moves from the medial knee to the lateral knee she also c/o right sided medial knee pain PT-OP-C Subjective Start: 07/20/22 12:25 Freq: Status: Active Protocol: Document 09/13/22 10:50 [facility] (Rec: 09/13/22 11:32 [facility] [id number]) OP-PT Subjective Patient Comments Patient Comments pt notes she has been wearing her knee braces in the mornings and wearing them with walking. She is tightneing her core while she does her side steps in the pool. She has been happy with the pessary from dr gabriela adams MD at [facility]. Her knee pain comes and goes and it will move from the quad to the lateral knee. She is walking 40 min every day. Patient Reported Progress Improving PT-OP-F Manual Assessment Start: 07/20/22 12:25 Freq: Status: Active Protocol: Document 07/20/22 12:15 [facility] (Rec: 07/26/22 09:36 [facility] [id number]) Manual Assessments Soft Tissue Assessment Soft Tissue Mobility Assessment tightness of the left ITB with tightness at the distal attachments B piriformis tightness low back paraspinal tightness L>R and thoracic paraspinal tightness R Joint Mobility Assessment Joint Mobility Assessment hypomobility in the thoracic spine T4-T10 with scoliosis curve Other Manual Assessments Other Manual Assessments pt with scoliosis with curve to the right PT-OP-J Posture/Palpation/Skin Start: 07/20/22 12:25 Freq: Status: Active Protocol: Document 07/20/22 12:15 [facility] (Rec: 07/26/22 09:36 [facility] [id number]) Palpation Assessment Location left ITB distal attachment Palpation Findings Soft Tissue Tightness,Muscle Guarding PT-OP-K Range of Motion Start: 07/20/22 12:25 Freq: Status: Active Protocol: Document 07/20/22 12:15 [facility] (Rec: 07/26/22 09:36 [facility] [id number]) Lumbar Spine Range of Motion Lumbar Spine Active Testing Position Standing Lateral Flexion Left 10 Lateral Flexion Right 8 ROM Limitations Soft Tissue Tightness,Pain PT-OP-M Strength Start: 07/20/22 12:25 Freq: Status: Active Protocol: Document 07/20/22 12:15 [facility] (Rec: 07/26/22 09:37 [facility] [id number]) Trunk Strength Trunk Manual Muscle Testing Testing Position Supine Flexion 3 Fair Hip Strength Hip Manual Muscle Testing Right Abduction 3+ Fair+ External Rotation 3+ Fair+ Left Abduction 3+ Fair+ External Rotation 3+ Fair+ PT-OP-Q Treatments Start: 07/20/22 12:25 Freq: Status: Active Protocol: Document 09/13/22 10:50 [facility] (Rec: 09/13/22 16:22 [facility] [id number]) Cardio Equipment Bicycle (Upright) Duration (Minutes) 10 Resistance 2 Seat Position 4 Therapeutic Exercises Supine Exercises single knee to chest Reps/Minutes 2 x 30 sec ITB stretch Reps/Minutes hold 1-2 min Standing Exercises standing knee flexion in the pool Reps/Minutes x 20 reps standing quad stretch Reps/Minutes hold 1 min Manual Therapy Treatment Soft Tissue Mobilization ITB MFR on the left leg Mobilization Type Myofascial Release Body Position Supine Comments distal attachment tightness of the ITB Manual Techniques sidelying left quad stretch Body Location left quad stretch Body Position Sidelying Reps/Duration hold 1 min manual ITB stretch Body Location left ITB Body Position Hooklying Reps/Duration hold 1-2 min Comments supine with hip flexed with straight knee then crossing the body PT-OP-T Assessment and Plan Start: 07/20/22 12:25 Freq: Status: Active Protocol: Document 09/13/22 10:50 [facility] (Rec: 09/13/22 16:22 [facility] [id number]) Physical Therapy Assessment Assessment Summary Assessment Yaritza pham tolerated the bike well today and i encouraged her to try standing quad stretches in the pool as well as standing knee flexion to encourage quad stretching. Her ITB is still tight but is improving with her ther ex Physical Therapy Plan Frequency and Duration Frequency of Treatment 2x/Week Duration of treatment (weeks) 12 Plan of Care Start Date 07/20/22 Plan of Care End Date 10/12/22 Therapeutic Interventions Therapeutic Interventions Home Exercise Program,Joint Mobilizations,Manual Therapy, Patient/Caregiver Education, Self-Care/Home Management,Soft Tissue Mobilization, Therapeutic Exercises Next Visit Focus/Plan Next Note Type Treatment Note Next Visit Plan warm up on the bike, work on ITB stretching, stabilization exercises for the core and lateral hips, manual therapy techniques for the ITB
--- NOTE | 2022-09-21 12:50 | PT.OTN ---
Current Diagnoses Scoliosis, unspecified (09/21/22) Low back pain, unspecified (09/21/22) Physical Therapy Treatment Note PT-OP-A Visit Information Start: 07/20/22 12:25 Freq: Status: Active Protocol: Document 09/21/22 12:03 [facility] (Rec: 09/21/22 12:07 [facility] [id number]) Out-Patient Physical Therapy Visit Information Visit Information Visit Type Treatment Note Visit Start Time 12:00 Visit Stop Time 12:15 Total Visit Minutes 40 Visit Number 4 PT-OP-B Current Condition Start: 07/20/22 12:25 Freq: Status: Active Protocol: Document 07/20/22 12:15 [facility] (Rec: 07/20/22 14:10 [facility] [id number]) Current Condition History of Current Condition Onset Date May 2022 Current Complaints new onset of knee pain History of Current Condition history of back pain that comes and goes and right sided thoracic pain and medial scapula pain May 30 the left knee started bugging her she has kept swimming and her left leg is getting tight in the joint, the pain moves from the medial knee to the lateral knee she also c/o right sided medial knee pain PT-OP-C Subjective Start: 07/20/22 12:25 Freq: Status: Active Protocol: Document 09/21/22 12:03 [facility] (Rec: 09/21/22 12:07 [facility] [id number]) OP-PT Subjective Patient Comments Patient Comments pt has been working on bent knee exercies in the pool She is feeling some left sided sacral pain and left groin pain Patient Reported Progress Improving PT-OP-F Manual Assessment Start: 07/20/22 12:25 Freq: Status: Active Protocol: Document 07/20/22 12:15 [facility] (Rec: 07/26/22 09:36 [facility] [id number]) Manual Assessments Soft Tissue Assessment Soft Tissue Mobility Assessment tightness of the left ITB with tightness at the distal attachments B piriformis tightness low back paraspinal tightness L>R and thoracic paraspinal tightness R Joint Mobility Assessment Joint Mobility Assessment hypomobility in the thoracic spine T4-T10 with scoliosis curve Other Manual Assessments Other Manual Assessments pt with scoliosis with curve to the right PT-OP-J Posture/Palpation/Skin Start: 07/20/22 12:25 Freq: Status: Active Protocol: Document 07/20/22 12:15 [facility] (Rec: 07/26/22 09:36 [facility] [id number]) Palpation Assessment Location left ITB distal attachment Palpation Findings Soft Tissue Tightness,Muscle Guarding PT-OP-K Range of Motion Start: 07/20/22 12:25 Freq: Status: Active Protocol: Document 07/20/22 12:15 [facility] (Rec: 07/26/22 09:36 [facility] [id number]) Lumbar Spine Range of Motion Lumbar Spine Active Testing Position Standing Lateral Flexion Left 10 Lateral Flexion Right 8 ROM Limitations Soft Tissue Tightness,Pain PT-OP-M Strength Start: 07/20/22 12:25 Freq: Status: Active Protocol: Document 07/20/22 12:15 [facility] (Rec: 07/26/22 09:37 [facility] [id number]) Trunk Strength Trunk Manual Muscle Testing Testing Position Supine Flexion 3 Fair Hip Strength Hip Manual Muscle Testing Right Abduction 3+ Fair+ External Rotation 3+ Fair+ Left Abduction 3+ Fair+ External Rotation 3+ Fair+ PT-OP-Q Treatments Start: 07/20/22 12:25 Freq: Status: Active Protocol: Document 09/21/22 12:03 [facility] (Rec: 09/21/22 12:47 [facility] [id number]) Therapeutic Exercises Supine Exercises supine bridge Reps/Minutes 3 x 10 reps single knee to chest Reps/Minutes 2 x 30 sec Standing Exercises standing knee flexion in the pool Reps/Minutes x 20 reps Manual Therapy Treatment Soft Tissue Mobilization ITB MFR on the left leg Mobilization Type Myofascial Release Body Position Supine Comments proximal and distal attachment tightness of the ITB Manual Techniques sidelying left quad stretch Body Location left quad stretch Body Position Sidelying Reps/Duration hold 1 min manual ITB stretch Body Location left ITB Body Position Hooklying Reps/Duration hold 1-2 min Comments supine with hip flexed with straight knee then crossing the body PT-OP-T Assessment and Plan Start: 07/20/22 12:25 Freq: Status: Active Protocol: Document 09/21/22 12:03 [facility] (Rec: 09/21/22 12:47 [facility] [id number]) Physical Therapy Assessment Assessment Summary Assessment I worked on release of the ITB today and bridges were added for gluteal strength. Yaritza Neff plans on adding in a gym memembership at the pool and I think this would be beneficial for her for adding in strength training Physical Therapy Plan Frequency and Duration Frequency of Treatment 2x/Week Duration of treatment (weeks) 12 Plan of Care Start Date 07/20/22 Plan of Care End Date 10/12/22 Therapeutic Interventions Therapeutic Interventions Home Exercise Program,Joint Mobilizations,Manual Therapy, Patient/Caregiver Education, Self-Care/Home Management,Soft Tissue Mobilization, Therapeutic Exercises Next Visit Focus/Plan Next Note Type Treatment Note Next Visit Plan review ther ex and continue working on ITB release
--- NOTE | 2022-09-28 13:03 | PT.OTN ---
Current Diagnoses Scoliosis, unspecified (09/28/22) Low back pain, unspecified (09/28/22) Physical Therapy Treatment Note PT-OP-A Visit Information Start: 07/20/22 12:25 Freq: Status: Active Protocol: Document 09/28/22 12:04 [facility] (Rec: 09/28/22 13:03 [facility] [id number]) Out-Patient Physical Therapy Visit Information Visit Information Visit Type Treatment Note Visit Start Time 12:05 Visit Stop Time 12:50 Total Visit Minutes 45 Visit Number 5 PT-OP-B Current Condition Start: 07/20/22 12:25 Freq: Status: Active Protocol: Document 07/20/22 12:15 [facility] (Rec: 07/20/22 14:10 [facility] [id number]) Current Condition History of Current Condition Onset Date May 2022 Current Complaints new onset of knee pain History of Current Condition history of back pain that comes and goes and right sided thoracic pain and medial scapula pain May 30 the left knee started bugging her she has kept swimming and her left leg is getting tight in the joint, the pain moves from the medial knee to the lateral knee she also c/o right sided medial knee pain PT-OP-C Subjective Start: 07/20/22 12:25 Freq: Status: Active Protocol: Document 09/28/22 12:04 [facility] (Rec: 09/28/22 13:03 [facility] [id number]) OP-PT Subjective Patient Comments Patient Comments pt reports the pool has been closed and it is closed for an additional week, she is feeling tight in her shoulders . Overall her knee is doing better PT-OP-F Manual Assessment Start: 07/20/22 12:25 Freq: Status: Active Protocol: Document 07/20/22 12:15 [facility] (Rec: 07/26/22 09:36 [facility] [id number]) Manual Assessments Soft Tissue Assessment Soft Tissue Mobility Assessment tightness of the left ITB with tightness at the distal attachments B piriformis tightness low back paraspinal tightness L>R and thoracic paraspinal tightness R Joint Mobility Assessment Joint Mobility Assessment hypomobility in the thoracic spine T4-T10 with scoliosis curve Other Manual Assessments Other Manual Assessments pt with scoliosis with curve to the right PT-OP-J Posture/Palpation/Skin Start: 07/20/22 12:25 Freq: Status: Active Protocol: Document 07/20/22 12:15 [facility] (Rec: 07/26/22 09:36 [facility] [id number]) Palpation Assessment Location left ITB distal attachment Palpation Findings Soft Tissue Tightness,Muscle Guarding PT-OP-K Range of Motion Start: 07/20/22 12:25 Freq: Status: Active Protocol: Document 07/20/22 12:15 [facility] (Rec: 07/26/22 09:36 [facility] [id number]) Lumbar Spine Range of Motion Lumbar Spine Active Testing Position Standing Lateral Flexion Left 10 Lateral Flexion Right 8 ROM Limitations Soft Tissue Tightness,Pain PT-OP-M Strength Start: 07/20/22 12:25 Freq: Status: Active Protocol: Document 07/20/22 12:15 [facility] (Rec: 07/26/22 09:37 [facility] [id number]) Trunk Strength Trunk Manual Muscle Testing Testing Position Supine Flexion 3 Fair Hip Strength Hip Manual Muscle Testing Right Abduction 3+ Fair+ External Rotation 3+ Fair+ Left Abduction 3+ Fair+ External Rotation 3+ Fair+ PT-OP-Q Treatments Start: 07/20/22 12:25 Freq: Status: Active Protocol: Document 09/28/22 12:04 [facility] (Rec: 09/28/22 13:03 [facility] [id number]) Cardio Equipment Bicycle (Upright) Duration (Minutes) 10 Resistance 2 Seat Position 4 Therapeutic Exercises Sidelying Exercises sidelying shoulder ER Reps/Minutes 3 x 10 reps gravity only Standing Exercises standing knee flexion in the pool Reps/Minutes x 20 reps Manual Therapy Treatment Soft Tissue Mobilization right medial scapula border and upper trap Mobilization Type Myofascial Release Body Position Prone Joint Mobilizations thoracic spine ELICEO rogers Grade II Body Position Prone PT-OP-T Assessment and Plan Start: 07/20/22 12:25 Freq: Status: Active Protocol: Document 09/28/22 12:04 [facility] (Rec: 09/28/22 13:03 [facility] [id number]) Physical Therapy Assessment Assessment Summary Assessment nasra pham has been working on her HEP and doing better with her knee. She will resume her aquatic program after the pool reopens in one week. She is feeling that the bike has been good for her Physical Therapy Plan Frequency and Duration Frequency of Treatment 2x/Week Duration of treatment (weeks) 12 Plan of Care Start Date 07/20/22 Plan of Care End Date 10/12/22 Next Visit Focus/Plan Next Note Type Treatment Note Next Visit Plan review ther ex and continue working on ITB release
--- NOTE | 2022-10-05 13:13 | PT.OTN ---
Current Diagnoses Scoliosis, unspecified (10/05/22) Low back pain, unspecified (10/05/22) Physical Therapy Treatment Note PT-OP-A Visit Information Start: 07/20/22 12:25 Freq: Status: Active Protocol: Document 10/05/22 12:05 [facility] (Rec: 10/05/22 13:13 [facility] [id number]) Out-Patient Physical Therapy Visit Information Visit Information Visit Type Treatment Note Visit Start Time 12:00 Visit Stop Time 12:45 Total Visit Minutes 45 Visit Number 6 PT-OP-B Current Condition Start: 07/20/22 12:25 Freq: Status: Active Protocol: Document 07/20/22 12:15 [facility] (Rec: 07/20/22 14:10 [facility] [id number]) Current Condition History of Current Condition Onset Date May 2022 Current Complaints new onset of knee pain History of Current Condition history of back pain that comes and goes and right sided thoracic pain and medial scapula pain May 30 the left knee started bugging her she has kept swimming and her left leg is getting tight in the joint, the pain moves from the medial knee to the lateral knee she also c/o right sided medial knee pain PT-OP-C Subjective Start: 07/20/22 12:25 Freq: Status: Active Protocol: Document 10/05/22 12:05 [facility] (Rec: 10/05/22 13:13 [facility] [id number]) OP-PT Subjective Patient Comments Patient Comments pool still not open until monday, she feels really tight in the lateral knee today, going up steps is difficult. She also feels tight in the right SI joint today PT-OP-F Manual Assessment Start: 07/20/22 12:25 Freq: Status: Active Protocol: Document 07/20/22 12:15 [facility] (Rec: 07/26/22 09:36 [facility] [id number]) Manual Assessments Soft Tissue Assessment Soft Tissue Mobility Assessment tightness of the left ITB with tightness at the distal attachments B piriformis tightness low back paraspinal tightness L>R and thoracic paraspinal tightness R Joint Mobility Assessment Joint Mobility Assessment hypomobility in the thoracic spine T4-T10 with scoliosis curve Other Manual Assessments Other Manual Assessments pt with scoliosis with curve to the right PT-OP-J Posture/Palpation/Skin Start: 07/20/22 12:25 Freq: Status: Active Protocol: Document 07/20/22 12:15 [facility] (Rec: 07/26/22 09:36 [facility] [id number]) Palpation Assessment Location left ITB distal attachment Palpation Findings Soft Tissue Tightness,Muscle Guarding PT-OP-K Range of Motion Start: 07/20/22 12:25 Freq: Status: Active Protocol: Document 07/20/22 12:15 [facility] (Rec: 07/26/22 09:36 [facility] [id number]) Lumbar Spine Range of Motion Lumbar Spine Active Testing Position Standing Lateral Flexion Left 10 Lateral Flexion Right 8 ROM Limitations Soft Tissue Tightness,Pain PT-OP-M Strength Start: 07/20/22 12:25 Freq: Status: Active Protocol: Document 07/20/22 12:15 [facility] (Rec: 07/26/22 09:37 [facility] [id number]) Trunk Strength Trunk Manual Muscle Testing Testing Position Supine Flexion 3 Fair Hip Strength Hip Manual Muscle Testing Right Abduction 3+ Fair+ External Rotation 3+ Fair+ Left Abduction 3+ Fair+ External Rotation 3+ Fair+ PT-OP-Q Treatments Start: 07/20/22 12:25 Freq: Status: Active Protocol: Document 10/05/22 12:05 [facility] (Rec: 10/05/22 13:13 [facility] [id number]) Cardio Equipment Bicycle (Upright) Duration (Minutes) 10 Resistance 2 Seat Position 4 Therapeutic Exercises Supine Exercises ITB stretch Reps/Minutes hold 1-2 min Standing Exercises step ups in the pool Reps/Minutes x 10 each leg Manual Therapy Treatment Soft Tissue Mobilization right piriformis release Mobilization Type Myofascial Release Intensity/Depth Moderate Body Position Prone ITB MFR on the left leg Mobilization Type Myofascial Release Body Position Supine Comments proximal and distal attachment tightness of the ITB PT-OP-T Assessment and Plan Start: 07/20/22 12:25 Freq: Status: Active Protocol: Document 10/05/22 12:05 [facility] (Rec: 10/05/22 13:13 [facility] [id number]) Physical Therapy Assessment Assessment Summary Assessment Yaritza pham has not been able to get into the pool the past two weeks due it it being closed. She is feeling tighter because of this. We did discuss step ups in the pool as a exercise to help strengthen her quads. Physical Therapy Plan Frequency and Duration Frequency of Treatment 2x/Week Duration of treatment (weeks) 12 Plan of Care Start Date 07/20/22 Plan of Care End Date 10/12/22 Therapeutic Interventions Therapeutic Interventions Home Exercise Program,Joint Mobilizations,Manual Therapy, Patient/Caregiver Education, Self-Care/Home Management,Soft Tissue Mobilization, Therapeutic Exercises Next Visit Focus/Plan Next Note Type Treatment Note Next Visit Plan review how pt does in the pool with her step ups next visit
--- NOTE | 2022-10-19 12:56 | PT.OTN ---
Current Diagnoses Scoliosis, unspecified (10/19/22) Low back pain, unspecified (10/19/22) Physical Therapy Treatment Note PT-OP-A Visit Information Start: 07/20/22 12:25 Freq: Status: Active Protocol: Document 10/19/22 12:07 [facility] (Rec: 10/19/22 12:56 [facility] [id number]) Out-Patient Physical Therapy Visit Information Visit Information Visit Type Progress Note Visit Start Time 12:05 Visit Stop Time 12:50 Total Visit Minutes 45 Visit Number 7 PT-OP-B Current Condition Start: 07/20/22 12:25 Freq: Status: Active Protocol: Document 07/20/22 12:15 [facility] (Rec: 07/20/22 14:10 [facility] [id number]) Current Condition History of Current Condition Onset Date May 2022 Current Complaints new onset of knee pain History of Current Condition history of back pain that comes and goes and right sided thoracic pain and medial scapula pain May 30 the left knee started bugging her she has kept swimming and her left leg is getting tight in the joint, the pain moves from the medial knee to the lateral knee she also c/o right sided medial knee pain PT-OP-C Subjective Start: 07/20/22 12:25 Freq: Status: Active Protocol: Document 10/19/22 12:07 [facility] (Rec: 10/19/22 12:56 [facility] [id number]) OP-PT Subjective Patient Comments Patient Comments pt had a colonoscopy on monday and still feels a little bloated in her abdomen, Yaritza neff reports she is back in the pool now and has been working on her stretches PT-OP-F Manual Assessment Start: 07/20/22 12:25 Freq: Status: Active Protocol: Document 07/20/22 12:15 [facility] (Rec: 07/26/22 09:36 [facility] [id number]) Manual Assessments Soft Tissue Assessment Soft Tissue Mobility Assessment tightness of the left ITB with tightness at the distal attachments B piriformis tightness low back paraspinal tightness L>R and thoracic paraspinal tightness R Joint Mobility Assessment Joint Mobility Assessment hypomobility in the thoracic spine T4-T10 with scoliosis curve Other Manual Assessments Other Manual Assessments pt with scoliosis with curve to the right PT-OP-J Posture/Palpation/Skin Start: 07/20/22 12:25 Freq: Status: Active Protocol: Document 07/20/22 12:15 [facility] (Rec: 07/26/22 09:36 [facility] [id number]) Palpation Assessment Location left ITB distal attachment Palpation Findings Soft Tissue Tightness,Muscle Guarding PT-OP-K Range of Motion Start: 07/20/22 12:25 Freq: Status: Active Protocol: Document 07/20/22 12:15 [facility] (Rec: 07/26/22 09:36 [facility] [id number]) Lumbar Spine Range of Motion Lumbar Spine Active Testing Position Standing Lateral Flexion Left 10 Lateral Flexion Right 8 ROM Limitations Soft Tissue Tightness,Pain PT-OP-M Strength Start: 07/20/22 12:25 Freq: Status: Active Protocol: Document 07/20/22 12:15 [facility] (Rec: 07/26/22 09:37 [facility] [id number]) Trunk Strength Trunk Manual Muscle Testing Testing Position Supine Flexion 3 Fair Hip Strength Hip Manual Muscle Testing Right Abduction 3+ Fair+ External Rotation 3+ Fair+ Left Abduction 3+ Fair+ External Rotation 3+ Fair+ PT-OP-Q Treatments Start: 07/20/22 12:25 Freq: Status: Active Protocol: Document 10/19/22 12:07 [facility] (Rec: 10/19/22 12:56 [facility] [id number]) Cardio Equipment Bicycle (Upright) Duration (Minutes) 10 Resistance 2 Seat Position 4 Therapeutic Exercises Supine Exercises single knee to chest Reps/Minutes 2 x 30 sec ITB stretch Reps/Minutes hold 1-2 min Manual Therapy Treatment Soft Tissue Mobilization ITB MFR on the left leg Mobilization Type Myofascial Release Body Position Supine Comments proximal and distal attachment tightness of the ITB Manual Techniques manual ITB stretch Body Location left ITB Body Position Hooklying Reps/Duration hold 1-2 min Comments supine with hip flexed with straight knee then crossing the body PT-OP-T Assessment and Plan Start: 07/20/22 12:25 Freq: Status: Active Protocol: Document 10/19/22 12:07 [facility] (Rec: 10/19/22 12:56 [facility] [id number]) Physical Therapy Assessment Goals Three Impairment Myofascial tightness and guarding in the lumbar paraspinals L>R and thoracic paraspinals R>L with scoliosis creating increased back pain Jail Goal (LTG) Pt is educated on a home stretching program for her low back and combined with manual therapy treatment she presents with decreased muscle guarding and spasm overall Excellent progress LTG Duration 12 weeks Two Impairment Weakness of the core and lateral hip stabilizers Short Term Goal (STG) Yaritza Neff is educated on a HEP for lateral hip stabilization and core stabilization GOAL MET STG Duration 4 weeks Jail Goal (LTG) Improve strength of the core and lateral hip stabilizers by 1 muscle grade Good progress LTG Duration 12 weeks One Impairment Yaritza Neff reports quite a bit of difficulty with her usual activities and is unable to walk a mile for her exercise at this time due to pain. 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 Good progress LTG Duration 12 weeks myofascial tightness over the diaphragm and ribs Impairment myofascial tightness over the diaphragm and ribs Decreased strength of the anterior pelvic floor Impairment Decreased strength of the anterior pelvic floor pelvic pressure and heaviness Impairment pt reports pelvic pressure and heaviness worse after her walks and at the end of the day 3 Impairment pain in the upper cervical spine, upper trapezius and scalenes as well as into the thoracic spin 1 Impairment Right sided piriformis tightness and pain at the SI joint limiting Yaritza Neff's ability to stand greater than 1 hour Assessment Summary Assessment Yaritza Neff has made good overall progress. She is working on both anterior hip and ITB flexibility as well as core strengthening and lateral hip strengthening. I ahve had her on the upright bike and this is helping with knee ROM and decreased pain. Yaritza Neff's son is ordering her a bike for home which will be helpful for her. She would benefit from continued PT Physical Therapy Plan Frequency and Duration Frequency of Treatment 2x/Week Duration of treatment (weeks) 8 Plan of Care Start Date 10/12/22 Plan of Care End Date 12/07/22 Next Visit Focus/Plan Next Note Type Treatment Note Next Visit Plan review how pt does in the pool with her step ups next visit
--- NOTE | 2022-10-19 12:57 | PT.OPPOC ---
Physical, Occupational & Speech Therapy At [facility] Current Diagnoses Scoliosis, unspecified (10/19/22) Low back pain, unspecified (10/19/22) Visit Care Team Role Provider Type Lan Gomes MD Attending Provider Physician Family Provider Primary Care Provider Referring Provider Specialty: Family Practice Address: [address] [place] [address] Email: [email or web address] Plan Of Care PT-OP-T Assessment and Plan Start: 07/20/22 12:25 Freq: Status: Active Protocol: Document 10/19/22 12:07 [facility] (Rec: 10/19/22 12:56 [facility] [id number]) Physical Therapy Assessment Goals Three Impairment Myofascial tightness and guarding in the lumbar paraspinals L>R and thoracic paraspinals R>L with scoliosis creating increased back pain Prison Goal (LTG) Pt is educated on a home stretching program for her low back and combined with manual therapy treatment she presents with decreased muscle guarding and spasm overall Excellent progress LTG Duration 12 weeks Two Impairment Weakness of the core and lateral hip stabilizers Short Term Goal (STG) Yaritza Neff is educated on a HEP for lateral hip stabilization and core stabilization GOAL MET STG Duration 4 weeks 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 Her LEFS is 46 % Prison Goal (LTG) Yaritza neff reports improved ability to walk and is able to return to walking a mile and perform functional activites and her LEFS is improved by 10 points. Good progress LTG Duration 12 weeks myofascial tightness over the diaphragm and ribs Impairment myofascial tightness over the diaphragm and ribs Decreased strength of the anterior pelvic floor Impairment Decreased strength of the anterior pelvic floor pelvic pressure and heaviness Impairment pt reports pelvic pressure and heaviness worse after her walks and at the end of the day 3 Impairment pain in the upper cervical spine, upper trapezius and scalenes as well as into the thoracic spin 1 Impairment Right sided piriformis tightness and pain at the SI joint limiting Yaritza Neff's ability to stand greater than 1 hour Assessment Summary Assessment Yaritza Neff has made good overall progress. She is working on both anterior hip and ITB flexibility as well as core strengthening and lateral hip strengthening. I ahve had her on the upright bike and this is helping with knee ROM and decreased pain. Yaritza Neff's son is ordering her a bike for home which will be helpful for her. She would benefit from continued PT Physical Therapy Plan Frequency and Duration Frequency of Treatment 2x/Week Duration of treatment (weeks) 8 Plan of Care Start Date 10/12/22 Plan of Care End Date 12/07/22 Next Visit Focus/Plan Next Note Type Treatment Note Next Visit Plan review how pt does in the pool with her step ups next visit Plan of Care Dates Plan of Care Start Date 10/12/22 Plan of Care End Date 12/07/22 Electronically Signed by: Danya Blanco, PT 10/19/22 1257 If you are in agreement with this Plan of Care, please return a signed and dated copy. I have reviewed this Plan of Care and certify that the skilled therapy services above are required to meet the patient?s needs. Physician Signature Date Printed Name and Credentials Clinical Instructor Signature Printed Name and Credentials
--- NOTE | 2022-10-26 13:20 | PT.OTN ---
Current Diagnoses Scoliosis, unspecified (10/26/22) Low back pain, unspecified (10/26/22) Physical Therapy Treatment Note PT-OP-A Visit Information Start: 07/20/22 12:25 Freq: Status: Active Protocol: Document 10/26/22 13:18 [facility] (Rec: 10/26/22 13:20 [facility] [id number]) Out-Patient Physical Therapy Visit Information Visit Information Visit Type Treatment Note Visit Start Time 12:00 Visit Stop Time 12:45 Total Visit Minutes 45 Visit Number 8 PT-OP-B Current Condition Start: 07/20/22 12:25 Freq: Status: Active Protocol: Document 07/20/22 12:15 [facility] (Rec: 07/20/22 14:10 [facility] [id number]) Current Condition History of Current Condition Onset Date May 2022 Current Complaints new onset of knee pain History of Current Condition history of back pain that comes and goes and right sided thoracic pain and medial scapula pain May 30 the left knee started bugging her she has kept swimming and her left leg is getting tight in the joint, the pain moves from the medial knee to the lateral knee she also c/o right sided medial knee pain PT-OP-C Subjective Start: 07/20/22 12:25 Freq: Status: Active Protocol: Document 10/26/22 13:18 [facility] (Rec: 10/26/22 13:20 [facility] [id number]) OP-PT Subjective Patient Comments Patient Comments Yaritza Neff reports she is back at the pool and trying to work on her exercises in the pool PT-OP-F Manual Assessment Start: 07/20/22 12:25 Freq: Status: Active Protocol: Document 07/20/22 12:15 [facility] (Rec: 07/26/22 09:36 [facility] [id number]) Manual Assessments Soft Tissue Assessment Soft Tissue Mobility Assessment tightness of the left ITB with tightness at the distal attachments B piriformis tightness low back paraspinal tightness L>R and thoracic paraspinal tightness R Joint Mobility Assessment Joint Mobility Assessment hypomobility in the thoracic spine T4-T10 with scoliosis curve Other Manual Assessments Other Manual Assessments pt with scoliosis with curve to the right PT-OP-J Posture/Palpation/Skin Start: 07/20/22 12:25 Freq: Status: Active Protocol: Document 07/20/22 12:15 [facility] (Rec: 07/26/22 09:36 [facility] [id number]) Palpation Assessment Location left ITB distal attachment Palpation Findings Soft Tissue Tightness,Muscle Guarding PT-OP-K Range of Motion Start: 07/20/22 12:25 Freq: Status: Active Protocol: Document 07/20/22 12:15 [facility] (Rec: 07/26/22 09:36 [facility] [id number]) Lumbar Spine Range of Motion Lumbar Spine Active Testing Position Standing Lateral Flexion Left 10 Lateral Flexion Right 8 ROM Limitations Soft Tissue Tightness,Pain PT-OP-M Strength Start: 07/20/22 12:25 Freq: Status: Active Protocol: Document 07/20/22 12:15 [facility] (Rec: 07/26/22 09:37 [facility] [id number]) Trunk Strength Trunk Manual Muscle Testing Testing Position Supine Flexion 3 Fair Hip Strength Hip Manual Muscle Testing Right Abduction 3+ Fair+ External Rotation 3+ Fair+ Left Abduction 3+ Fair+ External Rotation 3+ Fair+ PT-OP-Q Treatments Start: 07/20/22 12:25 Freq: Status: Active Protocol: Document 10/26/22 13:18 [facility] (Rec: 10/26/22 13:20 [facility] [id number]) Cardio Equipment Bicycle (Upright) Duration (Minutes) 10 Resistance 2 Seat Position 4 Therapeutic Exercises Standing Exercises standing knee flexion in the pool Reps/Minutes x 20 reps Comments at countertop today Manual Therapy Treatment Soft Tissue Mobilization ITB MFR on the left leg Mobilization Type Myofascial Release Body Position Supine Comments proximal and distal attachment tightness of the ITB Manual Techniques manual ITB stretch Body Location left ITB Body Position Hooklying Reps/Duration hold 1-2 min Comments supine with hip flexed with straight knee then crossing the body PT-OP-T Assessment and Plan Start: 07/20/22 12:25 Freq: Status: Active Protocol: Document 10/26/22 13:18 [facility] (Rec: 10/26/22 13:20 [facility] [id number]) Physical Therapy Plan Frequency and Duration Frequency of Treatment 2x/Week Duration of treatment (weeks) 8 Plan of Care Start Date 10/12/22 Plan of Care End Date 12/07/22 Therapeutic Interventions Therapeutic Interventions Home Exercise Program,Joint Mobilizations,Manual Therapy, Patient/Caregiver Education, Self-Care/Home Management,Soft Tissue Mobilization, Therapeutic Exercises Next Visit Focus/Plan Next Note Type Treatment Note Next Visit Plan reassess pelvic alignment next visit
--- NOTE | 2022-11-02 12:58 | PT.OTN ---
Current Diagnoses Scoliosis, unspecified (11/02/22) Low back pain, unspecified (11/02/22) Physical Therapy Treatment Note PT-OP-A Visit Information Start: 07/20/22 12:25 Freq: Status: Active Protocol: Document 11/02/22 12:05 [facility] (Rec: 11/02/22 12:58 [facility] [id number]) Out-Patient Physical Therapy Visit Information Visit Information Visit Type Treatment Note Visit Start Time 12:05 Visit Stop Time 12:50 Total Visit Minutes 45 Visit Number 9 PT-OP-B Current Condition Start: 07/20/22 12:25 Freq: Status: Active Protocol: Document 07/20/22 12:15 [facility] (Rec: 07/20/22 14:10 [facility] [id number]) Current Condition History of Current Condition Onset Date May 2022 Current Complaints new onset of knee pain History of Current Condition history of back pain that comes and goes and right sided thoracic pain and medial scapula pain May 30 the left knee started bugging her she has kept swimming and her left leg is getting tight in the joint, the pain moves from the medial knee to the lateral knee she also c/o right sided medial knee pain PT-OP-C Subjective Start: 07/20/22 12:25 Freq: Status: Active Protocol: Document 11/02/22 12:05 [facility] (Rec: 11/02/22 12:58 [facility] [id number]) OP-PT Subjective Patient Comments Patient Comments Yaritza pham reports she has been trying to work on her exercises in the pool but has questions on exercises for days she cant get to the pool PT-OP-F Manual Assessment Start: 07/20/22 12:25 Freq: Status: Active Protocol: Document 07/20/22 12:15 [facility] (Rec: 07/26/22 09:36 [facility] [id number]) Manual Assessments Soft Tissue Assessment Soft Tissue Mobility Assessment tightness of the left ITB with tightness at the distal attachments B piriformis tightness low back paraspinal tightness L>R and thoracic paraspinal tightness R Joint Mobility Assessment Joint Mobility Assessment hypomobility in the thoracic spine T4-T10 with scoliosis curve Other Manual Assessments Other Manual Assessments pt with scoliosis with curve to the right PT-OP-J Posture/Palpation/Skin Start: 07/20/22 12:25 Freq: Status: Active Protocol: Document 07/20/22 12:15 [facility] (Rec: 07/26/22 09:36 [facility] [id number]) Palpation Assessment Location left ITB distal attachment Palpation Findings Soft Tissue Tightness,Muscle Guarding PT-OP-K Range of Motion Start: 07/20/22 12:25 Freq: Status: Active Protocol: Document 07/20/22 12:15 [facility] (Rec: 07/26/22 09:36 [facility] [id number]) Lumbar Spine Range of Motion Lumbar Spine Active Testing Position Standing Lateral Flexion Left 10 Lateral Flexion Right 8 ROM Limitations Soft Tissue Tightness,Pain PT-OP-M Strength Start: 07/20/22 12:25 Freq: Status: Active Protocol: Document 07/20/22 12:15 [facility] (Rec: 07/26/22 09:37 [facility] [id number]) Trunk Strength Trunk Manual Muscle Testing Testing Position Supine Flexion 3 Fair Hip Strength Hip Manual Muscle Testing Right Abduction 3+ Fair+ External Rotation 3+ Fair+ Left Abduction 3+ Fair+ External Rotation 3+ Fair+ PT-OP-Q Treatments Start: 07/20/22 12:25 Freq: Status: Active Protocol: Document 11/02/22 12:05 [facility] (Rec: 11/02/22 12:58 [facility] [id number]) Cardio Equipment Bicycle (Upright) Duration (Minutes) 8 Resistance 2 Seat Position 4 Therapeutic Exercises Supine Exercises single knee to chest Reps/Minutes 2 x 30 sec ITB stretch Reps/Minutes hold 1-2 min Standing Exercises standing squat with side steps Reps/Minutes x 10 each direction standing sit to stand Reps/Minutes x 10 Comments pt cued to keep left knee from IR standing quad stretch Reps/Minutes hold 1 min Manual Therapy Treatment Soft Tissue Mobilization ITB MFR on the left leg Mobilization Type Myofascial Release Body Position Supine Comments proximal and distal attachment tightness of the ITB Manual Techniques manual ITB stretch Body Location left ITB Body Position Hooklying Reps/Duration hold 1-2 min Comments supine with hip flexed with straight knee then crossing the body PT-OP-T Assessment and Plan Start: 07/20/22 12:25 Freq: Status: Active Protocol: Document 11/02/22 12:05 [facility] (Rec: 11/02/22 12:58 [facility] [id number]) Physical Therapy Plan Frequency and Duration Frequency of Treatment 2x/Week Duration of treatment (weeks) 8 Plan of Care Start Date 10/12/22 Plan of Care End Date 12/07/22 Therapeutic Interventions Therapeutic Interventions Home Exercise Program,Joint Mobilizations,Manual Therapy, Patient/Caregiver Education, Self-Care/Home Management,Soft Tissue Mobilization, Therapeutic Exercises Next Visit Focus/Plan Next Note Type Progress Note Next Visit Plan Send PA to MD next visit, review standing squats with side steps
--- NOTE | 2022-11-09 12:58 | PT.OTN ---
Current Diagnoses Scoliosis, unspecified (11/09/22) Low back pain, unspecified (11/09/22) Physical Therapy Treatment Note PT-OP-A Visit Information Start: 07/20/22 12:25 Freq: Status: Active Protocol: Document 11/09/22 12:10 [facility] (Rec: 11/09/22 12:58 [facility] [id number]) Out-Patient Physical Therapy Visit Information Visit Information Visit Type Treatment Note Visit Note #3 since last [place] Visit Start Time 12:10 Visit Stop Time 13:50 Total Visit Minutes 40 Visit Number 10 PT-OP-B Current Condition Start: 07/20/22 12:25 Freq: Status: Active Protocol: Document 07/20/22 12:15 [facility] (Rec: 07/20/22 14:10 [facility] [id number]) Current Condition History of Current Condition Onset Date May 2022 Current Complaints new onset of knee pain History of Current Condition history of back pain that comes and goes and right sided thoracic pain and medial scapula pain May 30 the left knee started bugging her she has kept swimming and her left leg is getting tight in the joint, the pain moves from the medial knee to the lateral knee she also c/o right sided medial knee pain PT-OP-C Subjective Start: 07/20/22 12:25 Freq: Status: Active Protocol: Document 11/09/22 12:10 [facility] (Rec: 11/09/22 12:58 [facility] [id number]) OP-PT Subjective Patient Comments Patient Comments pt notes the only time her left knee is bothering her at this time is going up stairs PT-OP-F Manual Assessment Start: 07/20/22 12:25 Freq: Status: Active Protocol: Document 07/20/22 12:15 [facility] (Rec: 07/26/22 09:36 [facility] [id number]) Manual Assessments Soft Tissue Assessment Soft Tissue Mobility Assessment tightness of the left ITB with tightness at the distal attachments B piriformis tightness low back paraspinal tightness L>R and thoracic paraspinal tightness R Joint Mobility Assessment Joint Mobility Assessment hypomobility in the thoracic spine T4-T10 with scoliosis curve Other Manual Assessments Other Manual Assessments pt with scoliosis with curve to the right PT-OP-J Posture/Palpation/Skin Start: 07/20/22 12:25 Freq: Status: Active Protocol: Document 07/20/22 12:15 [facility] (Rec: 07/26/22 09:36 [facility] [id number]) Palpation Assessment Location left ITB distal attachment Palpation Findings Soft Tissue Tightness,Muscle Guarding PT-OP-K Range of Motion Start: 07/20/22 12:25 Freq: Status: Active Protocol: Document 07/20/22 12:15 [facility] (Rec: 07/26/22 09:36 [facility] [id number]) Lumbar Spine Range of Motion Lumbar Spine Active Testing Position Standing Lateral Flexion Left 10 Lateral Flexion Right 8 ROM Limitations Soft Tissue Tightness,Pain PT-OP-M Strength Start: 07/20/22 12:25 Freq: Status: Active Protocol: Document 07/20/22 12:15 [facility] (Rec: 07/26/22 09:37 [facility] [id number]) Trunk Strength Trunk Manual Muscle Testing Testing Position Supine Flexion 3 Fair Hip Strength Hip Manual Muscle Testing Right Abduction 3+ Fair+ External Rotation 3+ Fair+ Left Abduction 3+ Fair+ External Rotation 3+ Fair+ PT-OP-Q Treatments Start: 07/20/22 12:25 Freq: Status: Active Protocol: Document 11/09/22 12:10 [facility] (Rec: 11/09/22 12:58 [facility] [id number]) Cardio Equipment Bicycle (Upright) Duration (Minutes) 10 Resistance 2 Seat Position 4 Therapeutic Exercises Standing Exercises standing knee flexion in the pool Reps/Minutes x 20 reps Comments at countertop today Manual Therapy Treatment Soft Tissue Mobilization right piriformis release Mobilization Type Myofascial Release Intensity/Depth Moderate Body Position Prone ITB MFR on the left leg Mobilization Type Myofascial Release Body Position Supine Comments proximal and distal attachment tightness of the ITB Joint Mobilizations thoracic spine PA glides Grade II Body Position Prone PT-OP-T Assessment and Plan Start: 07/20/22 12:25 Freq: Status: Active Protocol: Document 11/09/22 12:10 [facility] (Rec: 11/09/22 12:58 [facility] [id number]) Physical Therapy Assessment Assessment Summary Assessment Yaritza pham is doing better overall with her knee and ITB and has been in the pool frequently. Still tightness in the piriformis muscles which I worked on today. We reviewed her step ups and discussed her lateral steps and step ups as well. Physical Therapy Plan Frequency and Duration Frequency of Treatment 2x/Week Duration of treatment (weeks) 8 Plan of Care Start Date 10/12/22 Plan of Care End Date 12/07/22 Next Visit Focus/Plan Next Note Type Treatment Note Next Visit Plan This will be pts last scheduled visit in PT, review all HEP next visit
--- NOTE | 2022-11-16 09:01 | PT.OTN ---
Current Diagnoses Scoliosis, unspecified (11/16/22) Low back pain, unspecified (11/16/22) Physical Therapy Treatment Note PT-OP-A Visit Information Start: 07/20/22 12:25 Freq: Status: Active Protocol: Document 11/16/22 08:05 [facility] (Rec: 11/16/22 08:50 [facility] [id number]) Out-Patient Physical Therapy Visit Information Visit Information Visit Type Re-Evaluation Visit Note #4 since last [place] Visit Start Time 08:00 Visit Stop Time 08:45 Total Visit Minutes 45 Visit Number 11 PT-OP-B Current Condition Start: 07/20/22 12:25 Freq: Status: Active Protocol: Document 07/20/22 12:15 [facility] (Rec: 07/20/22 14:10 [facility] [id number]) Current Condition History of Current Condition Onset Date May 2022 Current Complaints new onset of knee pain History of Current Condition history of back pain that comes and goes and right sided thoracic pain and medial scapula pain May 30 the left knee started bugging her she has kept swimming and her left leg is getting tight in the joint, the pain moves from the medial knee to the lateral knee she also c/o right sided medial knee pain PT-OP-C Subjective Start: 07/20/22 12:25 Freq: Status: Active Protocol: Document 11/16/22 08:55 [facility] (Rec: 11/16/22 09:00 [facility] [id number]) OP-PT Subjective Patient Comments Patient Comments pt reports she is doing better overall with her knee, she has been doin her exercises in the pool. She is feeling tightness today in the left piriformis area Patient Reported Progress Improving Patient Questionnaires Lower Extremity Functional Scale LEFS Score 55 LEFS Impairment 20 to 39% Impaired (Score 48- 62) PT-OP-F Manual Assessment Start: 07/20/22 12:25 Freq: Status: Active Protocol: Document 07/20/22 12:15 [facility] (Rec: 07/26/22 09:36 [facility] [id number]) Manual Assessments Soft Tissue Assessment Soft Tissue Mobility Assessment tightness of the left ITB with tightness at the distal attachments B piriformis tightness low back paraspinal tightness L>R and thoracic paraspinal tightness R Joint Mobility Assessment Joint Mobility Assessment hypomobility in the thoracic spine T4-T10 with scoliosis curve Other Manual Assessments Other Manual Assessments pt with scoliosis with curve to the right PT-OP-J Posture/Palpation/Skin Start: 07/20/22 12:25 Freq: Status: Active Protocol: Document 07/20/22 12:15 [facility] (Rec: 07/26/22 09:36 [facility] [id number]) Palpation Assessment Location left ITB distal attachment Palpation Findings Soft Tissue Tightness,Muscle Guarding PT-OP-K Range of Motion Start: 07/20/22 12:25 Freq: Status: Active Protocol: Document 07/20/22 12:15 [facility] (Rec: 07/26/22 09:36 [facility] [id number]) Lumbar Spine Range of Motion Lumbar Spine Active Testing Position Standing Lateral Flexion Left 10 Lateral Flexion Right 8 ROM Limitations Soft Tissue Tightness,Pain PT-OP-M Strength Start: 07/20/22 12:25 Freq: Status: Active Protocol: Document 07/20/22 12:15 [facility] (Rec: 07/26/22 09:37 [facility] [id number]) Trunk Strength Trunk Manual Muscle Testing Testing Position Supine Flexion 3 Fair Hip Strength Hip Manual Muscle Testing Right Abduction 3+ Fair+ External Rotation 3+ Fair+ Left Abduction 3+ Fair+ External Rotation 3+ Fair+ PT-OP-Q Treatments Start: 07/20/22 12:25 Freq: Status: Active Protocol: Document 11/16/22 08:55 [facility] (Rec: 11/16/22 09:00 [facility] [id number]) Cardio Equipment Bicycle (Upright) Duration (Minutes) 10 Resistance 3 Seat Position 4 Gym Equipment Shuttle Recovery Bilateral Squats Details bilateral squats Resistance 50# Reps/Time 2x 15 reps Therapeutic Exercises Sitting Exercises seated hamstring stretch Comments left greater than right sided tightness Standing Exercises standing knee flexion in the pool Reps/Minutes x 20 reps Comments at countertop today PT-OP-T Assessment and Plan Start: 07/20/22 12:25 Freq: Status: Active Protocol: Document 11/16/22 08:55 [facility] (Rec: 11/16/22 09:00 [facility] [id number]) Physical Therapy Assessment Goals Three Impairment Myofascial tightness and guarding in the lumbar paraspinals L>R and thoracic paraspinals R>L with scoliosis creating increased back pain [employer] Goal (LTG) Pt is educated on a home stretching program for her low back and combined with manual therapy treatment she presents with decreased muscle guarding and spasm overall goal met LTG Duration 12 weeks Two Impairment Weakness of the core and lateral hip stabilizers Short Term Goal (STG) Yaritza Neff is educated on a HEP for lateral hip stabilization and core stabilization GOAL MET STG Duration 4 weeks [facility] Goal (LTG) Improve strength of the core and lateral hip stabilizers by 1 muscle grade Good progress LTG Duration 12 weeks One Impairment Yaritza Neff reports quite a bit of difficulty with her usual activities and is unable to walk a mile for her exercise at this time due to pain. Her LEFS is 46 % [employer] Goal (LTG) Yaritza neff reports improved ability to walk and is able to return to walking a mile and perform functional activites and her LEFS is improved by 10 points. Goal met LTG Duration 12 weeks myofascial tightness over the diaphragm and ribs Impairment myofascial tightness over the diaphragm and ribs Assessment Summary Assessment Yaritza neff has shown great progress overall and has been able to return to her walking and exercise routine in the pool. She plans on visiting her daughter in [place] next month and will be able to go on some hikes and walks while there. She will be DC from PT at this time Physical Therapy Plan Discharge Physical Therapy Discharge Reasons Goals Met
== END 2022-11-18 08:45 | disposition home or self-care (01) ==
LOC: PHYS 08:00
PROVIDERS: Family Provider Family Medicine; PCP Family Medicine; Referring Provider Family Medicine; Visit Provider Family Medicine
DX: M41.9 Scoliosis, unspecified (principal); M54.50 Low back pain, unspecified
CPT/HCPCS: 97110; 97140; 97161

== ENCOUNTER → 2023-01-14 09:21 | Outpatient (CLI) | payer MEDICARE, OTHER, SELFPAY ==
[2023-01-14 10:09] LABS: Alanine Aminotransferase 18 IU/L (<35); Albumin 4.2 g/dL (3.5-5.0); Albumin Globulin Ratio 1.4 (1.0-2.8); Alkaline Phosphatase 63 U/L (38-126); Aspartate Aminotransferase 24 IU/L (14-36); BUN Creatinine Ratio 34.5 (6-22); Bilirubin Total 0.6 mg/dL (0.2-1.3); Blood Urea Nitrogen 19 mg/dL (7-17); Calcium 9.6 mg/dL (8.4-10.2); Carbon Dioxide 27 mmol/L (22-32); Chloride 100 mmol/L (98-107); Cholesterol 304 mg/dL (140-199); Estimated Glomerular Filt Rate > 60 mL/min (>60); Globulin 3.1 g/dL (1.7-4.1); Glucose 93 mg/dL (80-110); HDL Cholesterol 88 mg/dL (40-60); HEMOLYSIS < 15 (0-50); LDL Cholesterol Calculated 195 mg/dL (<100); Potassium 3.9 mmol/L (3.4-5.1); Sodium 133 mmol/L (137-145); Total Protein 7.3 g/dL (6.3-8.2); Triglycerides 106 mg/dL (35-150)
[2023-01-14 10:19] LABS: Vitamin D 25 Hydroxy (D3) 55.6 ng/mL (30.0-100.0)
[2023-01-14 10:34] LABS: TSH w/ Reflex to FT4 0.91 uIU/mL (0.47-4.68)
== END ==
PROVIDERS: Family Provider Family Medicine; PCP Family Medicine; Referring Provider Physician Assistant; Visit Provider Physician Assistant
DX: R73.03 Prediabetes (principal); E78.5 Hyperlipidemia, unspecified; E55.9 Vitamin D deficiency, unspecified; E03.9 Hypothyroidism, unspecified; K21.9 Gastro-esophageal reflux disease without esophagitis; L52 Erythema nodosum; M85.80 Other specified disorders of bone density and structure, unspecified site
CPT/HCPCS: 36415; 80053; 80061; 82306; 83036; 84443

== ENCOUNTER → 2023-01-30 14:43 | Outpatient (CLI) | payer MEDICARE, OTHER, SELFPAY ==
--- NOTE | 2023-01-30 14:45 | DI.RAD.S_ITS ---
Bone Density Report Name: MOJGAN MYERS Age: 77 Sex: Female Ethnicity: White Date of : 1945 Indication: osteopenia; prior fracture; Referring Provider: CORKY MANLEY Study: Bone densitometry was performed. Exam Date: January 30, 2023 Accession number: [id number] Bone Density: Region BMD T-score Z-score Classification AP Spine(L1, L2) 1.064 0.8 3.1 Normal Femoral Neck (Left) 0.698 -1.4 0.8 Osteopenia Total Hip (Left) 0.787 -1.3 0.6 Osteopenia Femoral Neck (Right) 0.622 -2.0 0.1 Osteopenia Total Hip (Right) 0.787 -1.3 0.6 Osteopenia Total Hip Mean 0.787 -1.3 0.6 Osteopenia World Health Organization criteria for BMD impression classify patients as: Normal (T-score at or above -1.0), Osteopenia (T-score between -1.0 and -2.5), or Osteoporosis (T-score at or below -2.5). 10-year Fracture Risk(1): Major Osteoporotic Fracture 19% Hip Fracture 5.0% Reported Risk Factors: [place] (), Neck BMD=0.622, BMI=21.1, previous fracture (1) FRAX(R) Version 3.08. Fracture probability calculated for an untreated patient. Fracture probability may be lower if the patient has received treatment. Previous Exams: -- Region Exam Age BMD T-score BMD Change BMD Change Date g/cm2 vs Baseline vs Previous -- AP Spine (L1-L2) 01/30/2023 77 1.064 0.8 -0.157 (-12.9%)# -0.011 (-1.0%)# 02/19/2020 74 1.075 0.9 -0.146 (-12.0%)* -0.004 (-0.4%) 03/19/2014 68 1.079 0.9 -0.142 (-11.6%)* -0.009 (-0.9%) 11/18/2010 65 1.088 1.0 -0.133 (-10.9%)* -0.133 (-10.9%)* 09/16/2008 63 1.221 2.2 Total Hip(Left) 01/30/2023 77 0.787 -1.3 -0.035 (-4.3%)# 0.030 (4.0%)# 02/19/2020 74 0.757 -1.5 -0.065 (-7.9%)* -0.032 (-4.1%)* 03/19/2014 68 0.789 -1.3 -0.033 (-4.0%)* -0.038 (-4.6%)* 11/18/2010 65 0.827 -0.9 0.005 (0.6%) 0.005 (0.6%) 09/16/2008 63 0.822 -1.0 Total Hip(Right) 01/30/2023 77 0.787 -1.3 -0.034 (-4.2%)# -0.025 (-3.1%)# 02/19/2020 74 0.812 -1.1 -0.009 (-1.1%) -0.041 (-4.8%)* 03/19/2014 68 0.852 -0.7 0.032 (3.8%)* -0.013 (-1.5%) 11/18/2010 65 0.866 -0.6 0.045 (5.5%)* 0.045 (5.5%)* 09/16/2008 63 0.821 -1.0 -- *Denotes significance at 95% confidence level, LSC for AP Spine = 0.022 g/cm2, LSC for Total Hip = 0.027 g/cm2 Rate of change results reflect vertebral levels common to all scans # Denotes dissimilar scan types or analysis methods Impression: The patient has low bone mass, based on the Right Femoral Neck T-score. The patient has an estimated ten-year risk of hip fracture of 5% and an estimated ten-year risk of major fracture of 19%, based on the WHO FRAX algorithm. The patient has risk factors, including: previous fracture. No significant bone loss was observed. Discussion: BONE DENSITY IS LOW AT ONE OR MORE SKELETAL SITES. THE PATIENT'S BMD AND CLINICAL RISK FACTORS CONTRIBUTE TO THIS PATIENT'S INCREASED RISK OF FRACTURE. This patient's lowest T-score is low at one or more skeletal sites. It meets the World Health Organization's (WHO) criteria for low bone mass (T-score between -1.0 and -2.5). The patient's 10-year risk of hip fracture as calculated by FRAX exceeds the threshold where pharmacological therapy is recommended by the National Osteoporosis Foundation (NOF). However, all treatment decisions require clinical judgment and consideration of individual patient factors, including patient preferences, comorbidities, previous drug use, risk factors not captured in the FRAX model (e.g., frailty, falls, vitamin D deficiency, increased bone turnover, interval significant decline in bone density) and possible under or overestimation of fracture risk by FRAX. The patient should follow a healthful lifestyle (good nutrition with adequate calcium and vitamin D, and appropriate weight-bearing exercise). Follow-Up: Consider a repeat BMD and Vertebral Fracture Assessment (VFA) exam in 2 years or sooner if medically necessary, to reassess this patient's status. Reported by: [facility] SONA SAGASTUME M.D. on 01/30/2023 3:20:00 PM.
== END ==
PROVIDERS: Family Provider Family Medicine; PCP Family Medicine; Referring Provider Family Medicine; Visit Provider Family Medicine
DX: M85.89 Other specified disorders of bone density and structure, multiple sites (principal); N95.9 Unspecified menopausal and perimenopausal disorder
CPT/HCPCS: 77080

== ENCOUNTER → 2023-04-20 15:48 | Outpatient (CLI) | payer MEDICARE, OTHER, SELFPAY ==
--- NOTE | 2023-04-20 15:50 | DI.CT.S_ITS ---
PROCEDURE: CT CHEST WO CON INDICATIONS: 6 month follow up TECHNIQUE: Noncontrast 5 mm thick sections acquired from the pulmonary apices to the posterior costophrenic angles. 1 mm lung window, 5 mm thick coronal and sagittal and 7 mm axial MIP reformats were then acquired. For radiation dose reduction, the following was used: automated exposure control, adjustment of mA and/or kV according to patient size. COMPARISON: [facility], CT, CT CHEST WO [facility], 10/20/2022, 16:09. FINDINGS: Image quality: Diagnostic. Lower Neck: No enlarged lymph nodes. Thyroid: No thyroid nodules which require sonographic follow up, per consensus guidelines. Axillae: No enlarged lymph nodes. Chest Wall: Unremarkable. Bones: No acute fracture. No aggressive appearing lytic or blastic osseous lesion. Levoconvex curvature of the lumbar spine. Moderate to severe multilevel degenerative changes. Lungs and Pleura: No pneumothorax or pleural effusions. Compared to CT chest dated October 20, 2022, no new or enlarging pulmonary nodules or consolidation. Near complete resolution of the focal airspace opacity in the anterior inferior aspect of the right upper lobe with a residual subpleural solid pulmonary nodule measuring 3 mm (4/189). Stable subpleural pulmonary nodule in the posterior right lower lobe measuring 5 mm (4/185). Similar appearance of a few additional scattered pulmonary nodules measuring 2-3 mm. Patent central airways. Heart: Heart size is normal. No pericardial effusion. Thoracic Vessels: The aorta and pulmonary arteries demonstrate normal size. Mild calcification of the thoracic aorta. Mediastinum and Gabriella: No enlarged lymph nodes. Esophagus: No wall thickening. No hiatal hernia. Upper Abdomen: Visualized upper abdomen solid organs and bowel loops appear normal. Stable simple cysts in the hepatic dome and right hepatic lobe. Additional subcentimeter hypodensities in the liver are too small to characterize and are stable. Simple cyst in the left renal interpolar region (3/68). IMPRESSION: Compared to CT chest dated October 20, 2022, no new or enlarging pulmonary nodules or consolidation. Near complete resolution of the focal air space opacity in the anterior inferior aspect of the right upper lobe with residual subpleural solid pulmonary nodule measuring 3 mm. Stable right lower lobe subpleural pulmonary nodule measuring 5 mm. Recommend a repeat CT in the 6 months to document 1 year stability of these findings. Dictated by: Roro Trevino M.D. on 04/20/2023 at 17:38 Approved by: Roro Trevino M.D. on 04/20/2023 at 17:44
== END ==
LOC: CT 15:50
PROVIDERS: Family Provider Family Medicine; PCP Family Medicine; Referring Provider Family Medicine; Visit Provider Family Medicine
DX: R91.8 Other nonspecific abnormal finding of lung field (principal)
CPT/HCPCS: 71250

== ENCOUNTER → 2023-07-22 09:55 | Outpatient (CLI) | payer MEDICARE, OTHER, SELFPAY ==
[2023-07-22 11:39] LABS: TSH w/ Reflex to FT4 0.65 uIU/mL (0.47-4.68)
== END ==
LOC: LAB 09:57
PROVIDERS: Family Provider Family Medicine; PCP Family Medicine; Referring Provider Physician Assistant; Visit Provider Physician Assistant
DX: E03.9 Hypothyroidism, unspecified (principal)
CPT/HCPCS: 36415; 84443

== ENCOUNTER → 2023-10-19 15:43 | Outpatient (CLI) | payer MEDICARE, OTHER, SELFPAY ==
--- NOTE | 2023-10-19 16:00 | DI.CT.S_ITS ---
PROCEDURE: CT CHEST WO CON INDICATIONS: 6 mo f/u to show 1 year stability of nodules TECHNIQUE: Noncontrast 5 mm thick sections acquired from the pulmonary apices to the posterior costophrenic angles. 1 mm lung window, 5 mm thick coronal and sagittal and 7 mm axial MIP reformats were then acquired. For radiation dose reduction, the following was used: automated exposure control, adjustment of mA and/or kV according to patient size. COMPARISON: [facility], CT, CT CHEST WO CON, 04/20/2023, 15:58., CT chest 10/20/2022 FINDINGS: Image quality: Diagnostic. Lower Neck: No enlarged lymph nodes. Thyroid: No thyroid nodules which require sonographic follow up, per consensus guidelines. Axillae: No enlarged lymph nodes. Chest Wall: Unremarkable. Bones: Unremarkable. Lungs and Pleura: No pneumothorax or pleural effusions. Compared to prior CT 04/20/2023, no new or enlarging pulmonary nodules. Previously described areas of consolidation have continued to decrease since prior CT dating back to 10/20/2022. No new areas of consolidation. Heart: Heart size is normal. No pericardial effusion. Thoracic Vessels: The aorta and pulmonary arteries demonstrate normal size. Mild calcifications of the thoracic aorta. Mediastinum and Gabriella: No enlarged lymph nodes. Esophagus: No wall thickening. No hiatal hernia. Upper Abdomen: Subcentimeter hepatic hypodensities are too small to characterize, probable cysts versus hemangiomas. IMPRESSION: No new or enlarging pulmonary nodules. Compared to prior CT 10/20/2022, near complete resolution of consolidation and previously described focal airspace opacities. Recommend follow-up CT in 12 months to demonstrate 2 year stability. Approved by: Zonia Goodman M.D.,Ph.D. on 10/19/2023 at 21:53
== END ==
PROVIDERS: Family Provider Family Medicine; PCP Family Medicine; Referring Provider Physician Assistant; Visit Provider Physician Assistant
DX: R91.8 Other nonspecific abnormal finding of lung field (principal); I70.0 Atherosclerosis of aorta
CPT/HCPCS: 71250

== ENCOUNTER → 2024-02-24 08:46 | Outpatient (CLI) | payer MEDICARE, OTHER, SELFPAY ==
[2024-02-24 09:25] LABS: Add Manual Diff / Slide Review NO; Basophils Absolute Auto 0 /uL (0-100); Basophils Percent Auto 0.7 % (0-2); Eosinophils Absolute Auto 100 /uL (0-450); Eosinophils Percent Auto 1.9 % (2-4); Hematocrit 38.3 % (36-46); Hemoglobin 12.9 g/dL (12.0-16.0); Lymphocytes Absolute Auto 1700 /uL (1100-4500); Lymphocytes Percent Auto 32.7 % (25-40); Mean Corpuscular HGB Conc 33.7 % (30-36); Mean Corpuscular Hemoglobin 30.3 PG (26-34); Mean Corpuscular Volume 89.9 fL (80-100); Monocytes Absolute Auto 400 /uL (0-900); Monocytes Percent Auto 7.5 % (3-14); Neutrophils Absolute Auto 2900 /uL (1500-7000); Neutrophils Percent Auto 57.2 % (50-75); Platelet Count 231 X10^3/uL (150-400); Red Blood Cell Count 4.26 X10^6/uL (4.0-5.2); Red Cell Distribution Width 13.3 % (11.6-14.8); White Blood Cell Count 5.1 X10^3/uL (4.5-11.0)
[2024-02-24 09:39] LABS: Hemoglobin A1C% w Est Avg Glu 5.7 % (4.0-6.0)
[2024-02-24 09:51] LABS: Alanine Aminotransferase 19 IU/L (<35); Albumin 4.1 g/dL (3.5-5.0); Albumin Globulin Ratio 1.4 (1.0-2.8); Alkaline Phosphatase 63 U/L (38-126); Aspartate Aminotransferase 26 IU/L (14-36); BUN Creatinine Ratio 28.1 (6-22); Bilirubin Total 0.5 mg/dL (0.2-1.3); Blood Urea Nitrogen 16 mg/dL (7-17); Calcium 9.2 mg/dL (8.4-10.2); Carbon Dioxide 28 mmol/L (22-32); Chloride 100 mmol/L (98-107); Cholesterol 299 mg/dL (140-199); Estimated Glomerular Filt Rate > 60 mL/min (>60); Globulin 2.9 g/dL (1.7-4.1); Glucose 100 mg/dL (80-110); HDL Cholesterol 90 mg/dL (40-60); HEMOLYSIS < 15 (0-50); LDL Cholesterol Calculated 191 mg/dL (<100); Potassium 4.1 mmol/L (3.4-5.1); Sodium 131 mmol/L (137-145); Triglycerides 91 mg/dL (35-150)
[2024-02-24 10:06] LABS: Vitamin D 25 Hydroxy (D3) 85.4 ng/mL (30.0-100.0)
[2024-02-24 10:14] LABS: TSH w/ Reflex to FT4 1.43 uIU/mL (0.47-4.68)
[2024-02-24 10:34] LABS: Vitamin B12 651 pg/mL (239-931)
[2024-02-25 22:07] LABS: Zinc 74 ug/dL (44-115)
== END ==
LOC: LAB 08:47
PROVIDERS: Family Provider Family Medicine; PCP Family Medicine; Referring Provider Physician Assistant; Visit Provider Physician Assistant
DX: E78.5 Hyperlipidemia, unspecified (principal); Z83.3 Family history of diabetes mellitus; E55.9 Vitamin D deficiency, unspecified; E03.9 Hypothyroidism, unspecified; D51.9 Vitamin B12 deficiency anemia, unspecified; M85.80 Other specified disorders of bone density and structure, unspecified site; R03.0 Elevated blood-pressure reading, without diagnosis of hypertension
CPT/HCPCS: 36415; 80053; 80061; 82306; 82607; 83036; 84443; 84630; 85025

== ENCOUNTER → 2024-12-28 08:10 | Outpatient (CLI) | payer MEDICARE, OTHER, SELFPAY ==
[2024-12-28 10:28] LABS: Cholesterol 266 mg/dL (140-199); HDL Cholesterol 86 mg/dL (40-60); Triglycerides 82 mg/dL (35-150)
== END ==
PROVIDERS: PCP Family Medicine; Referring Provider Physician Assistant; Visit Provider Physician Assistant
DX: E78.2 Mixed hyperlipidemia (principal)
CPT/HCPCS: 36415; 80061

== ENCOUNTER → 2025-01-29 08:26 | Outpatient (CLI) | payer MEDICARE, OTHER, SELFPAY ==
[2025-01-29 08:59] LABS: Add Manual Diff / Slide Review NO; Hematocrit 38.7 % (36-46); Hemoglobin 13.0 g/dL (12.0-16.0); Lymphocytes Absolute Auto 1500 /uL (1100-4500); Mean Corpuscular HGB Conc 33.6 % (30-36); Mean Corpuscular Hemoglobin 29.9 PG (26-34); Mean Corpuscular Volume 89.1 fL (80-100); Platelet Count 234 X10^3/uL (150-400)
[2025-01-29 09:15] LABS: HEMOLYSIS < 15 (0-50); Iron 116 ug/dL (37-170)
[2025-01-29 09:17] LABS: Alanine Aminotransferase 15 IU/L (<35); Albumin 4.5 g/dL (3.5-5.0); Albumin Globulin Ratio 1.5 (1.0-2.8); Alkaline Phosphatase 69 U/L (38-126); Blood Urea Nitrogen 14 mg/dL (7-17); Calcium 9.1 mg/dL (8.4-10.2); Carbon Dioxide 27 mmol/L (22-32); Chloride 101 mmol/L (98-107); Estimated Glomerular Filt Rate > 60 mL/min (>60); Globulin 3.0 g/dL (1.7-4.1); Glucose 104 mg/dL (70-99); HEMOLYSIS < 15 (0-50); Potassium 3.9 mmol/L (3.4-5.1); Sodium 136 mmol/L (137-145); Total Protein 7.5 g/dL (6.3-8.2)
[2025-01-29 09:29] LABS: Percent Iron Saturation 32 % (15-50); Total Iron Binding Capacity 360 ug/dL (265-497); Transferrin 305 mg/dL (206-381)
[2025-01-29 09:47] LABS: TSH w/ Reflex to FT4 1.16 uIU/mL (0.47-4.68)
== END ==
PROVIDERS: PCP Family Medicine; Referring Provider Physician Assistant; Visit Provider Physician Assistant
DX: E03.9 Hypothyroidism, unspecified (principal); M85.89 Other specified disorders of bone density and structure, multiple sites; K21.9 Gastro-esophageal reflux disease without esophagitis; R03.0 Elevated blood-pressure reading, without diagnosis of hypertension; R53.83 Other fatigue; E78.2 Mixed hyperlipidemia
CPT/HCPCS: 36415; 80053; 82172; 83540; 83550; 83695; 84443; 85025